=== PATIENT | female | born 1950 | race Caucasian/White ===

== ENCOUNTER 2017-08-22 19:09 | Inpatient (IN) | payer MEDICARE, OTHER ==
[2017-08-22] MEDS ORDERED: Haloperidol Lactate 5 mg/mL 1mL Vial IM PRN (19:28)
--- NOTE | 2017-08-22 19:36 | ED Physician Chart ---
ED Chief Complaint/HPI - Patient Information Date Seen:: 08/22/17 Time Seen:: 19:15 Chief Complaint:: agitation History of Present Illness:: 67 yr old female from formerly [facility] c[facility] pt has psych disorder thinks everybody is trying to poison her and refuses to eat or drink anything and is becoming emaciated and wasted bleeding gums and teeth decay Allergies:: pcn and depoakoate ED Review of Systems - Review of Systems General/Constitutional: No fever Neck: No swelling Cardio Vascular: No chest pain Pulmonary: No SOB GI: No vomiting Psychiatric: Prior psych history, Depression Hematopoietic: Bruising Neurological: Weakness Other: refuses to eat drink or follow commands very agitated and has failure to thrive ED Past Medical History - Past Medical History Past Medical History: DM, Other (ht failure kidney failure schizophrenia hypertension dementia difficulty walking,legaly blind,non compliance with medical tx) ED Physical Exam - Physical Examination General/Constitutional: Awake Other ENMT comments:: mouth bleeding teeth decaying and falling pt moans Other Neuro/Psych comments:: pt starts grabbing and refuses to follow commands or cooperate ED Assessment - Assessment General Assessment: schizoaffective disorder and failure to thrive ED Septic Shock - . Is Septic Shock (SBP<90, OR Lactate>4 mmol\L) present?: No ED Reassessment (Disposition) - Reassessment Reassessment Condition:: Unchanged - Patient Disposition Discharge/Transfer:: Acute Care w/in this hosp ([facility] for admission)
[2017-08-22] MEDS ORDERED: Haloperidol Lactate 5 mg/mL 1mL Vial ONE (21:00)
[2017-08-22 22:48] LABS: MEAN PLATELET VOLUME 9.2 fl
[2017-08-22 22:53] LABS: % BASOPHILS 2.8 % (0.0-2.0); % LYMPHOCYTES 6.1 % (20.0-50.0); % MONOCYTES 3.7 % (2.0-10.0); % NEUTROPHILS 87.4 % (40.0-80.0); BASOPHILE ABSOLUTE 0.4 Th/cumm (0-0.2); HEMATOCRIT 34.9 % (41.0-60); HEMOGLOBIN 11.7 gm/dL (12-16); LYMPHOCYTE ABSOLUTE 0.8 Th/cmm (1.5-3.0); MEAN CELL VOLUME 87.5 fl (81-100); MEAN CORPUSCULAR HEMOGLOBIN 29.5 pg (27.0-31.0); MEAN CORPUSCULAR HGB CONC 33.7 pg (28.0-36.0); MONOCYTE ABSOLUTE 0.5 Th/cmm (0.3-1.0); NEUTROPHILE ABSOLUTE 11.3 Th/cmm (1.8-8.0); PLATELET COUNT 187 Th/cmm (150-400); RED BLOOD COUNT 3.98 Mil/cmm (3.80-5.20); RED CELL DISTRIBUTION WIDTH 15.7 % (11.5-20.0)
[2017-08-22 22:56] LABS: INR 1.03 (0.5-1.4); PROTHROMBIN TIME (TEST) 10.7 SECONDS (9.5-11.5)
[2017-08-22 22:59] LABS: ALB/GLOB RATIO 1.4 (1.0-1.8); ANION GAP 22.4 (7.0-16.0); BILIRUBIN,TOTAL 1.2 mg/dL (0.3-1.0); CALCIUM SERUM 10.9 mg/dL (8.6-10.3); CARBON DIOXIDE 22.8 mEq/L (21.0-31.0); CREATININE - SERUM 1.2 mg/dL (0.6-1.2); GFR AFRICAN-AMERICAN 57.3 ml/min (>90); GFR NON AFRICAN-AMERICAN 47.3 ml/min; POTASSIUM SERUM 3.2 mEq/L (3.5-5.1); TOTAL PROTEIN,SERUM 6.9 gm/dL (6.0-8.3)
[2017-08-23] MEDS ORDERED: Magnesium Hydroxide (MOM) 30 mL UDC PO PRN (00:43)
[2017-08-23] MEDS ORDERED: Ipratropium Neb 0.5 mg/2.5 mL UD HHN PRN (00:43)
[2017-08-23] MEDS ORDERED: Albuterol Nebulizer 2.5mg/3mL HHN PRN (00:43)
[2017-08-23] MEDS ORDERED: Fleet Enema 135 mL RC PRN (00:43)
[2017-08-23] MEDS ORDERED: Hydrocodone/APAP 5mg/325mg Tab GT PRN (00:43)
[2017-08-23] MEDS ORDERED: Haloperidol Lactate 5 mg/mL 1mL Vial IM ONE (00:45)
[2017-08-23] MEDS ORDERED: Docusate Sodium 100 mg/10 mL UD GT PRN (01:45)
[2017-08-23] MEDS ORDERED: AMMONIUM LACTATE TP SCH (09:00)
[2017-08-23] MEDS: Ammonium Lactate Cream 140 gm Tube TP SCH ×2 (09:11→09:58)
--- NOTE | 2017-08-23 13:11 | Internal Medicine Prog Note ---
Internal Medicine Subjective - Subjective Service Date: 08/23/17 ([id number] hnp dictated) Internal Medicine Objective - Results Result Diagrams: 08/22/17 22:25 08/22/17 22:15 Recent Labs: Laboratory Last Values WBC 13.0 Th/cmm (4.8-10.8) H 08/22/17 22:25 RBC 3.98 Mil/cmm (3.80-5.20) 08/22/17 22:25 Hgb 11.7 gm/dL (12-16) L 08/22/17 22:25 Hct 34.9 % (41.0-60) L 08/22/17 22:25 MCV 87.5 fl (81-100) 08/22/17 22: MCH 29.5 pg (27.0-31.0) 08/22/17 22: MCHC Differential 33.7 pg (28.0-36.0) 08/22/17 22:25 RDW 15.7 % (11.5-20.0) 08/22/17: Plt Count 187 Th/cmm (150-400) 08/22/17 22:25 MPV 9.2 fl 08/22/17 22:25 Neutrophils % 87.4 % (40.0-80.0) H 08/22/17 22:25 Lymphocytes % 6.1 % (20.0-50.0) L 08/22/17 22:25 Monocytes % 3.7 % (2.0-10.0) 08/22/17 22: Eosinophils % 0.0 % (0.0-5.0) 08/22/17 22: Basophils % 2.8 % (0.0-2.0) H 08/22/17 22:25 PT 10.7 SECONDS (9.5-11.5) 08/22/17 22:15 INR 1.03 (0.5-1.4) 08/22/17 22:15 PTT (Actin FS) 22.4 SECONDS (26.0-38.0) L 08/22/17 22:15 Sodium 140 mEq/L (136-145) 08/22/17 22:15 Potassium 3.2 mEq/L (3.5-5.1) L 08/22/17 22:15 Chloride 98 mEq/L (98-107) 08/22/17 22:15 Carbon Dioxide 22.8 mEq/L (21.0-31.0) 08/22/17 22:15 Anion Gap 22.4 (7.0-16.0) H 08/22/17 22:15 BUN 32 mg/dL (7-25) H 08/22/17 22:15 Creatinine 1.2 mg/dL (0.6-1.2) 08/22/17 22:15 Est GFR ( Amer) 57.3 ml/min (>90) 08/22/17 22:15 Est GFR (Non-Af Amer) 47.3 ml/min 08/22/17 22:15 BUN/Creatinine Ratio 26.7 08/22/17 22:15 Glucose 74 mg/dL (70-105) 08/22/17 22:15 Calcium 10.9 mg/dL (8.6-10.3) H 08/22/17 22:15 Total Bilirubin 1.2 mg/dL (0.3-1.0) H 08/22/17 22:15 AST 18 U/L (13-39) 08/22/17 22:15 ALT 8 U/L (7-52) 08/22/17 22:15 Alkaline Phosphatase 62 U/L (34-104) 08/22/17 22:15 Total Protein 6.9 gm/dL (6.0-8.3) 08/22/17 22:15 Albumin 4.0 gm/dL (3.7-5.3) 08/22/17 22:15 Globulin 2.9 gm/dL 08/22/17 22:15 Albumin/Globulin Ratio 1.4 (1.0-1.8) 08/22/17 22:15 - Physical Exam Vitals and I&O: Vital Signs Temp 96.8 F 08/22/17 23:00 Pulse 72 08/23/17 05:04 Resp 16 08/23/17 07:26 BP 123/80 08/22/17 23:00 Pulse Ox 96 08/23/17 05:04 Intake & Output 08/22/17 08/23/17 08/23/17 18:59 06:59 18:59 Intake Total 120 Balance 120 Weight (lbs) 111 lb Intake: Oral 120 Other: # Voids 1 Weight Source Estimated Active Medications: Current Medications Acetaminophen (Tylenol) 650 mg GT Q4HR PRN PRN Reason: Pain or Fever >101 Stop: 10/22/17 00:42 Acetaminophen/Hydrocodone Bitart ([place] 5mg/325mg) 1 tab GT Q4HR PRN PRN Reason: Pain (Moderate) Stop: 10/22/17 00:42 Albuterol Sulfate (Albuterol 2.5mg/3ml Neb Ud) 2.5 mg HHN Q4HRT PRN PRN Reason: Shortness of Breath Stop: 10/22/17 00:42 Bisacodyl (Dulcolax 10 Mg Supp) 10 mg RC DAILY PRN PRN Reason: Constipation Stop: 10/22/17 00:42 Docusate Sodium (Colace) 100 mg GT DAILY PRN PRN Reason: CONSTIPATION Stop: 10/22/17 01:44 Ipratropium [place] (Atrovent Neb 0.5mg/2.5ml) 0.5 mg HHN Q4HRT PRN PRN Reason: Shortness of Breath or Wheeze Stop: 10/22/17 00:42 Lactic Acid (Lac-Hydrin Cream) 1 appl TP DAILY FOZIA Stop: 10/22/17 09:29 Last Admin: 08/23/17 09:58 Dose: 1 appl Lorazepam (Ativan) 0.5 mg PO Q6HR PRN; Protocol PRN Reason: Agitation Stop: 10/22/17 01:22 Magnesium Hydroxide (Milk Of Magnesia) 30 ml PO HS PRN PRN Reason: Constipation Stop: 10/22/17 00:42 Olanzapine (Zyprexa) 10 mg PO HS FOZIA; Protocol Stop: 10/22/17 20:59 Sodium Phosphate (Fleet Enema) 135 ml RC DAILY PRN PRN Reason: Constipation Stop: 10/22/17 00:42 Zolpidem Tartrate (Ambien) 5 mg PO HS PRN PRN Reason: Insomnia Stop: 10/22/17 01:24 - Procedures Procedures: Procedures Procedure Code Date RECREATIONAL THERAPY 93.81 11/09/10 Nutritional Asmnt/Malnutr-PDOC - Dietary Evaluation Malnutrition Findings (Please click <Entered> for more info): Nutritional Asmnt/Malnutrition Start: 08/23/17 10: 32 Text: Status: Complete Freq: Protocol: Document 08/23/17 10:32 MATEUSZ HudsonRec: 08/23/17 10:41 CECILELETHASIERRA VARGASN- FNS1) Nutritional Asmnt/Malnutrition Patient General Information Diagnosis psychosis nos Pertinent Medical Hx/Surgical Hx DM, schizophrenia, HTN, dementia, legally blind, non compliant Subjective Information Pt sitting up in bed with RN at bedside who was agruing with Pt to put lotion on patients bilateral lower extremities. Pt stating "I don 't want that, I don't want a doctor!" Visually noted severe ocular, clavicle, temperal wasting, and emaciated in appearance. RN at bedside stated that she though pt used to have g-tube however could not confirm if there was scaring of a stoma left on pt' s abdomen. Current Diet Order/ Nutrition Support pureed with nectar thick liquids Pertinent Medications bisacodyl, colace, MOM, fleet enema Pertinent Labs 08/22: Na 140, K 3.2, Cl 98, CO2 22.8, BUN 32, Cr 1.2, Ca 10.9, glucose 74 Nutritional Hx/Data Height 5 ft 6 in Height (Calculated Centimeters) 167.6 Current Weight (lbs) 97 lb 12.8 oz Weight (Calculated Kilograms) 44.4 Weight (Calculated Grams) 35213.3 Body Mass Index (BMI) 15.7 Weight Status Underweight GI Symptoms GI Symptoms None Cultural/Ethnic/[place] Belief unknown Usual diet at home pureed Skin Integrity/Comment: Shai score 12 Estimated Nutritional Goals BEE in Kcals: Using Current wt Calories/Kcals/Kg 30-35kcals/kg Kcals Calculated 1320-1540kcals/day Protein: Using Current wt Protein g/k.2+g/kg Protein Calculated 53+g/day Fluid: ml 1320-1540ml/day (1ml/kcal) Nutritional Problem 1. Problem Problem Altered nutrition related lab values related to Etiology renal dysfunction as evidenced by Signs/Symptoms: K 3.2, BUN 32. Intervention/Recommendation Comments Recommend continuing pureed diet with nectar thick liquids Recommend appeitite stimulant consider marinol to help with PO intake Expected Outcomes/Goals Expected Outcomes/Goals PO intake >/=50% of meals
--- NOTE | 2017-08-23 17:16 | History & Physical ---
ADMIT DATE: 08/23/2017 CHIEF COMPLAINT: Agitation. HISTORY OF PRESENT ILLNESS: This is a 67-year-old female who is a resident of [facility] who has a 1-day history of agitation and refusing to eat at the [facility]. The patient is now admitted to the Geropsych Unit. PAST MEDICAL HISTORY: Diabetes, CHF, kidney failure, schizophrenia, hypertension, dementia, legally blind, noncompliance. PAST SURGICAL HISTORY: Unknown. ALLERGIES: DEPAKOTE AND PENICILLIN. SOCIAL HISTORY: The patient is a [facility] resident requiring 24-hours of nursing care. FAMILY HISTORY: Noncontributory. REVIEW OF SYSTEMS: Unable to obtain at this time due to the patient's mental status. PHYSICAL EXAMINATION: GENERAL: Elderly female, appears thin, in no apparent distress. VITAL SIGNS: Temperature 96.8, heart rate 75, blood pressure 123/80, respiration 18. HEENT: Normocephalic, atraumatic. NECK: Supple. No mass. LUNGS: Clear bilaterally. HEART: Regular rate and rhythm. ABDOMEN: Soft, nontender. LABORATORY DATA: WBC 13.0, H and H 11.7/34.9, platelet of 187. Sodium 140, potassium 3.2, chloride 98, BUN 32, creatinine 1.2. ASSESSMENT: Agitation, diabetes, acute renal insufficiency, schizophrenia, hypertension, dementia, legally blind, noncompliance, leukocytosis, and hypokalemia. PLAN: We will collect a UA due to patient's elevated white count. We will recheck patient's electrolyte levels for tomorrow. Increase patient's fluids. We will continue to follow this patient. JOB# [id number]
--- NOTE | 2017-08-23 17:40 | Psychosocial Evaluation ---
DATE OF SERVICE: 08/23/2017 HISTORY OF PRESENT ILLNESS: The patient is admitted from ____, resident of [facility] ____ for refusal of medications and agitation. The patient is interviewed. Staff was spoken to. The patient is reported to be very disruptive. When I tried to interview the patient, the patient has been looking into the space and is not providing any information. The patient is very disheveled at this time and is also noted to be emaciated. Coping skills at this time are noted to be very poor. Insight and judgment are noted to be very much impaired, I am not able to get much of information. As per the review of the chart, the patient is diagnosed to have schizophrenia, chronic paranoid type and has been in conservatorship. The patient has been refusing to comply with the treatment. The patient is reported to have had dysphagia and PEG placement and the patient is currently on the Zyprexa. PAST PSYCHIATRIC HISTORY: Details are not known. MEDICAL HISTORY: Physical examination is requested and done by Dr. Sanchez. SUBSTANCE ABUSE HISTORY: None. PHYSICAL OR SEXUAL ABUSE HISTORY: None. LEGAL PROBLEMS: None at this time. STRENGTHS AND ASSETS: The patient at this time is not able to providing much of information, but refusing to care. DIAGNOSTIC IMPRESSION: The patient is staring into the space. The patient is alert and awake, but is not able to provide much of information. DIAGNOSES: AXIS I: Schizophrenia, chronic paranoid type by history. AXIS II: None. AXIS III: As per Dr. Sanchez. IMMEDIATE TREATMENT PLAN: The patient is going to be observed on the inpatient unit, provided with supportive psychotherapy. The patient is going to be closely monitored. Once stabilized, the patient is going to be continued on ____ Zyprexa and followed up. ESTIMATED LENGTH OF STAY: 5-7 days. DISCHARGE CRITERIA: The patient no longer a threat to self or others and be able to cope up with the stress. JOB# [id number]
[2017-08-24 07:55] LABS: % BASOPHILS 0.3 % (0.0-2.0); % EOSINOPHILS 0.1 % (0.0-5.0); % LYMPHOCYTES 9.1 % (20.0-50.0); % MONOCYTES 3.6 % (2.0-10.0); % NEUTROPHILS 86.9 % (40.0-80.0); HEMATOCRIT 33.1 % (41.0-60); HEMOGLOBIN 11.6 gm/dL (12-16); LYMPHOCYTE ABSOLUTE 0.9 Th/cmm (1.5-3.0); MEAN CELL VOLUME 87.9 fl (81-100); MEAN CORPUSCULAR HEMOGLOBIN 30.8 pg (27.0-31.0); MEAN CORPUSCULAR HGB CONC 35.1 pg (28.0-36.0); MEAN PLATELET VOLUME 8.9 fl; MONOCYTE ABSOLUTE 0.4 Th/cmm (0.3-1.0); PLATELET COUNT 219 Th/cmm (150-400); RED BLOOD COUNT 3.76 Mil/cmm (3.80-5.20); RED CELL DISTRIBUTION WIDTH 15.6 % (11.5-20.0); WHITE BLOOD COUNT 10.3 Th/cmm (4.8-10.8)
[2017-08-24 07:58] LABS: ANION GAP 19.2 (7.0-16.0); CALCIUM SERUM 10.4 mg/dL (8.6-10.3); CARBON DIOXIDE 27.8 mEq/L (21.0-31.0); CREATININE - SERUM 1.2 mg/dL (0.6-1.2); GFR AFRICAN-AMERICAN 57.3 ml/min (>90); GFR NON AFRICAN-AMERICAN 47.3 ml/min
[2017-08-24] MEDS: Ammonium Lactate Cream 140 gm Tube TP SCH (08:14)
--- NOTE | 2017-08-24 13:54 | Internal Medicine Prog Note ---
Internal Medicine Subjective - Subjective Service Date: 08/24/17 Patient seen and examined:: with staff Patient is:: awake Per staff patient has:: poor appetite, poor oral intake, refusing care Internal Medicine Objective - Results Result Diagrams: 08/24/17 07:25 08/24/17 07:25 Recent Labs: Laboratory Last Values WBC 10.3 Th/cmm (4.8-10.8) 08/24/17 07:25 RBC 3.76 Mil/cmm (3.80-5.20) L 08/24/17 07:25 Hgb 11.6 gm/dL (12-16) L 08/24/17 07:25 Hct 33.1 % (41.0-60) L 08/24/17 07:25 MCV 87.9 fl (81-100) 08/24/17 07:25 MCH 30.8 pg (27.0-31.0) 08/24/17 07:25 MCHC Differential 35.1 pg (28.0-36.0) 08/24/17 07:25 RDW 15.6 % (11.5-20.0) 08/24/17 07:25 Plt Count 219 Th/cmm (150-400) 08/24/17 07:25 MPV 8.9 fl 08/24/17 07:25 Neutrophils % 86.9 % (40.0-80.0) H 08/24/17 07:25 Lymphocytes % 9.1 % (20.0-50.0) L 08/24/17 07:25 Monocytes % 3.6 % (2.0-10.0) 08/24/17 07:25 Eosinophils % 0.1 % (0.0-5.0) 08/24/17 07:25 Basophils % 0.3 % (0.0-2.0) 08/24/17 07:25 PT 10.7 SECONDS (9.5-11.5) 08/22/17 22:15 INR 1.03 (0.5-1.4) 08/22/17 22:15 PTT (Actin FS) 22.4 SECONDS (26.0-38.0) L 08/22/17 22:15 Sodium 148 mEq/L (136-145) H 08/24/17 07:25 Potassium 4.0 mEq/L (3.5-5.1) 08/24/17 07:25 Chloride 105 mEq/L (98-107) 08/24/17 07:25 Carbon Dioxide 27.8 mEq/L (21.0-31.0) 08/24/17 07:25 Anion Gap 19.2 (7.0-16.0) H 08/24/17 07:25 BUN 28 mg/dL (7-25) H 08/24/17 07:25 Creatinine 1.2 mg/dL (0.6-1.2) 08/24/17 07:25 Est GFR ( Amer) 57.3 ml/min (>90) 08/24/17 07:25 Est GFR (Non-Af Amer) 47.3 ml/min 08/24/17 07:25 BUN/Creatinine Ratio 23.3 08/24/17 07:25 Glucose 74 mg/dL (70-105) 08/24/17 07:25 POC Glucose 70 MG/DL (70 - 105) 08/24/17 06:46 Calcium 10.4 mg/dL (8.6-10.3) H 08/24/17 07:25 Total Bilirubin 1.2 mg/dL (0.3-1.0) H 08/22/17 22:15 AST 18 U/L (13-39) 08/22/17 22:15 ALT 8 U/L (7-52) 08/22/17 22:15 Alkaline Phosphatase 62 U/L (34-104) 08/22/17 22:15 Total Protein 6.9 gm/dL (6.0-8.3) 08/22/17 22:15 Albumin 4.0 gm/dL (3.7-5.3) 08/22/17 22:15 Globulin 2.9 gm/dL 08/22/17 22:15 Albumin/Globulin Ratio 1.4 (1.0-1.8) 08/22/17 22:15 - Physical Exam Vitals and I&O: Vital Signs Temp 96.8 F 08/22/17 23:00 Pulse 72 08/23/17 05:04 Resp 16 08/23/17 07:26 BP 123/80 08/22/17 23:00 Pulse Ox 96 08/23/17 05:04 Intake & Output 08/23/17 08/24/17 08/24/17 18:59 06:59 18:59 Intake Total 120 Balance 120 Intake: Oral 120 Other: # Voids 3 Active Medications: Current Medications Acetaminophen (Tylenol) 650 mg GT Q4HR PRN PRN Reason: Pain or Fever >101 Stop: 10/22/17 00:42 Acetaminophen/Hydrocodone Bitart ([place] 5mg/325mg) 1 tab GT Q4HR PRN PRN Reason: Pain (Moderate) Stop: 10/22/17 00:42 Albuterol Sulfate (Albuterol 2.5mg/3ml Neb Ud) 2.5 mg HHN Q4HRT PRN PRN Reason: Shortness of Breath Stop: 10/22/17 00:42 Bisacodyl (Dulcolax 10 Mg Supp) 10 mg RC DAILY PRN PRN Reason: Constipation Stop: 10/22/17 00:42 Docusate Sodium (Colace) 100 mg GT DAILY PRN PRN Reason: CONSTIPATION Stop: 10/22/17 01:44 Ipratropium [place] (Atrovent Neb 0.5mg/2.5ml) 0.5 mg HHN Q4HRT PRN PRN Reason: Shortness of Breath or Wheeze Stop: 10/22/17 00:42 Lactic Acid (Lac-Hydrin Cream) 1 appl TP DAILY FOZIA Stop: 10/22/17 09:29 Last Admin: 08/24/17 08:14 Dose: 1 appl Lorazepam (Ativan) 0.5 mg PO Q6HR PRN; Protocol PRN Reason: Agitation Stop: 10/22/17 01:22 Magnesium Hydroxide (Milk Of Magnesia) 30 ml PO HS PRN PRN Reason: Constipation Stop: 10/22/17 00:42 Megestrol Acetate (Megace) 400 mg PO BID FOZIA; Protocol Stop: 10/23/17 08:59 Last Admin: 08/24/17 09:03 Dose: Not Given Olanzapine (Zyprexa) 5 mg PO HS FOZIA; Protocol Stop: 10/23/17 20:59 Sodium Phosphate (Fleet Enema) 135 ml RC DAILY PRN PRN Reason: Constipation Stop: 10/22/17 00:42 Zolpidem Tartrate (Ambien) 5 mg PO HS PRN PRN Reason: Insomnia Stop: 10/22/17 01:24 General: weak, alert, thin HEENT: NC/AT, PERRLA Neck: Supple Lungs: CTAB Cardiovascular: RRR, Normal S1, Normal S2, without murmur Abdomen: soft, non-tender, non-distended Extremities: excoriation Neurological: alert - Procedures Procedures: Procedures Procedure Code Date RECREATIONAL THERAPY 93.81 11/09/10 Internal Medicine Assmt/Plan - Assessment Assessment: agitation poor oral intake dm acute renal insufficiency htn dementia legally blind non-compliant hypokalemia - Plan Plan: may need adjustments with psych meds? added megace and patient refuses to take it. if patient still refuses to eat/drink may need to be transferred to [facility] for IVF. continue monitoring i+o continue current plan of care Nutritional Asmnt/Malnutr-PDOC - Dietary Evaluation Malnutrition Findings (Please click <Entered> for more info): Nutritional Asmnt/Malnutrition Start: 08/23/17 10: 32 Text: Status: Complete Freq: Protocol: Document 08/23/17 10:32 MATEUSZ (Rec: 08/23/17 10:41 MATEUSZ GRAHAM- FNS1) Nutritional Asmnt/Malnutrition Patient General Information Diagnosis psychosis nos Pertinent Medical Hx/Surgical Hx DM, schizophrenia, HTN, dementia, legally blind, non compliant Subjective Information Pt sitting up in bed with RN at bedside who was agruing with Pt to put lotion on patients bilateral lower extremities. Pt stating "I don 't want that, I don't want a doctor!" Visually noted severe ocular, clavicle, temperal wasting, and emaciated in appearance. RN at bedside stated that she though pt used to have g-tube however could not confirm if there was scaring of a stoma left on pt' s abdomen. Current Diet Order/ Nutrition Support pureed with nectar thick liquids Pertinent Medications bisacodyl, colace, MOM, fleet enema Pertinent Labs 08/22: Na 140, K 3.2, Cl 98, CO2 22.8, BUN 32, Cr 1.2, Ca 10.9, glucose 74 Nutritional Hx/Data Height 5 ft 6 in Height (Calculated Centimeters) 167.6 Current Weight (lbs) 97 lb 12.8 oz Weight (Calculated Kilograms) 44.4 Weight (Calculated Grams) 12585.3 Body Mass Index (BMI) 15.7 Weight Status Underweight GI Symptoms GI Symptoms None Cultural/Ethnic/Buddhism Belief unknown Usual diet at home pureed Skin Integrity/Comment: Shai score 12 Estimated Nutritional Goals BEE in Kcals: Using Current wt Calories/Kcals/Kg 30-35kcals/kg Kcals Calculated 1320-1540kcals/day Protein: Using Current wt Protein g/k.2+g/kg Protein Calculated 53+g/day Fluid: ml 1320-1540ml/day (1ml/kcal) Nutritional Problem 1. Problem Problem Altered nutrition related lab values related to Etiology renal dysfunction as evidenced by Signs/Symptoms: K 3.2, BUN 32. Intervention/Recommendation Comments Recommend continuing pureed diet with nectar thick liquids Recommend appeitite stimulant consider marinol to help with PO intake Expected Outcomes/Goals Expected Outcomes/Goals PO intake >/=50% of meals
== END 2017-08-24 16:06 | disposition short-term general hospital (02) | DRG 885 ==
LOC: ER 19:09 → GERO 23:05
PROVIDERS: ADMIT Psychiatry & Neurology Psychiatry; ATTEND Psychiatry & Neurology Psychiatry
DX: F20.0 Paranoid schizophrenia (principal); I11.0 Hypertensive heart disease with heart failure; E11.9 Type 2 diabetes mellitus without complications; I50.9 Heart failure, unspecified; F03.90 Unspecified dementia, unspecified severity, without behavioral disturbance, psychotic disturbance, mood disturbance, and anxiety; H54.8 Legal blindness, as defined in USA; R62.7 Adult failure to thrive; N28.9 Disorder of kidney and ureter, unspecified; D72.829 Elevated white blood cell count, unspecified; E87.6 Hypokalemia; Z91.14 Patient's other noncompliance with medication regimen
CPT/HCPCS: 36415-UA; 80048-TC; 80053-TC; 82948-90; 85007-TC; 85025-TC; 85027-TC; 85610-TC; 94760; J1200; J1630; Z7610

== ENCOUNTER 2017-08-24 16:20 | Inpatient (IN) | payer MEDICARE, OTHER ==
[2017-08-24] MEDS: D5-0.45NS 1,000 ML IV SCH (17:37)
--- NOTE | 2017-08-24 19:28 | Progress Notes ---
DATE: 08/24/2017 SUBJECTIVE: Staff was spoken to. The patient is interviewed. Mood is noted to be irritable. Affect is constricted. The patient's coping skills are noted to be still poor. The patient is looking blankly into the space and the patient has no insight into her illness. The patient continues to be paranoid. Since the patient has been very isolative, withdrawn and has been very, very drowsy and poorly motivated, it is decided to decrease the dose on the medication to 5 mg of the olanzapine at night time from 10 mg and the patient is going to be closely monitored with the supportive therapy. ASSESSMENT: The patient is still psychotic. PLAN: To continue the patient with the supportive therapy and adjust the dose on the medications. [facility]# [id number]
[2017-08-24] MEDS ORDERED: Hydrocodone/APAP 5mg/325mg Tab GT PRN ×2 (19:41)
[2017-08-24] MEDS ORDERED: Fleet Enema 135 mL RC PRN (19:41)
[2017-08-24] MEDS ORDERED: Magnesium Hydroxide (MOM) 30 mL UDC PO PRN (19:41)
[2017-08-24] MEDS ORDERED: Albuterol Nebulizer 2.5mg/3mL HHN PRN (19:41)
[2017-08-24] MEDS ORDERED: Ipratropium Neb 0.5 mg/2.5 mL UD HHN PRN (19:41)
[2017-08-24] MEDS: INSULIN ASPART SLIDING SCALE 100 UNITS/ML UNIT SUBQ SCH (20:09)
[2017-08-25] MEDS: D5-0.45NS 1,000 ML IV SCH ×2 (06:08→14:22)
[2017-08-25] MEDS: INSULIN ASPART SLIDING SCALE 100 UNITS/ML UNIT SUBQ SCH ×4 (08:17→20:49)
[2017-08-25] MEDS ORDERED: VTE Chemical Prophylaxis Screen/Admission MC PRN (09:27)
[2017-08-25] MEDS: Ammonium Lactate Cream 140 gm Tube TP SCH (10:01)
[2017-08-25 10:54] LABS: % EOSINOPHILS 0.2 % (0.0-5.0); % LYMPHOCYTES 9.4 % (20.0-50.0); % MONOCYTES 4.4 % (2.0-10.0); HEMATOCRIT 34.9 % (41.0-60); HEMOGLOBIN 11.8 gm/dL (12-16); LYMPHOCYTE ABSOLUTE 0.8 Th/cmm (1.5-3.0); MEAN CELL VOLUME 88.9 fl (81-100); MEAN CORPUSCULAR HEMOGLOBIN 30.1 pg (27.0-31.0); MEAN CORPUSCULAR HGB CONC 33.9 pg (28.0-36.0); MEAN PLATELET VOLUME 8.5 fl; MONOCYTE ABSOLUTE 0.4 Th/cmm (0.3-1.0); NEUTROPHILE ABSOLUTE 7.3 Th/cmm (1.8-8.0); PLATELET COUNT 192 Th/cmm (150-400); RED BLOOD COUNT 3.92 Mil/cmm (3.80-5.20); WHITE BLOOD COUNT 8.5 Th/cmm (4.8-10.8)
[2017-08-25] MEDS ORDERED: Ammonium Lactate Cream 140 gm Tube TP SCH (11:00)
[2017-08-25 11:17] LABS: ALB/GLOB RATIO 1.3 (1.0-1.8); ALKALINE PHOSPHATASE 50 U/L (34-104); ANION GAP 14.7 (7.0-16.0); BILIRUBIN,TOTAL 0.8 mg/dL (0.3-1.0); BUN - UREA NITROGEN 24 mg/dL (7-25); CALCIUM SERUM 9.5 mg/dL (8.6-10.3); CARBON DIOXIDE 28.3 mEq/L (21.0-31.0); CHLORIDE 105 mEq/L (98-107); CREATININE - SERUM 0.9 mg/dL (0.6-1.2); GFR AFRICAN-AMERICAN > 60.0 ml/min (>90); GFR NON AFRICAN-AMERICAN > 60.0 ml/min; GLUCOSE 106 mg/dL (70-105); MAGNESIUM 2.2 mg/dL (1.9-2.7); SGOT 11 U/L (13-39); SGPT/ALT 5 U/L (7-52); SODIUM SERUM 145 mEq/L (136-145); TOTAL PROTEIN,SERUM 5.3 gm/dL (6.0-8.3)
[2017-08-25] MEDS: KCL 20mEq/100mL Premix 20 MEQ/100 ML PIGGYBACK IV SCH ×2 (12:10→15:20)
--- NOTE | 2017-08-25 13:59 | Diagnostic Imaging Report ---
Head CT without intravenous contrast Indication: Altered level of consciousness Comparison: None Technique: Axial images were obtained from the vertex to the skull base without IV contrast. Coronal reconstructions were made. Total DLP: 633, CTDI33 FINDINGS: Images of the brain obtained without contrast demonstrate no evidence of an acute hemorrhage. Atrophy is noted. Exam is limited due to positioning. The bella-white matter differentiation is preserved. The ventricles and basal cisterns are patent. No mass effect or midline shift. No evidence of skull fracture or focal soft tissue swelling. There is a small mucous retention cyst versus polyp of the left maxillary sinus. IMPRESSION: No evidence of an acute intracranial hemorrhage. Atrophy Mild left maxillary sinus disease.
--- NOTE | 2017-08-25 14:12 | History & Physical ---
ADMIT DATE: 08/24/2017 CHIEF COMPLAINT: Failure to thrive, poor p.o. intake, dehydrated. HISTORY OF PRESENT ILLNESS: This is a 67-year-old female with a history of diabetes, CHF, renal insufficiency, hypertension, schizoaffective disorder, was admitted from Geropsych Unit per custodial, initially secondary to not eating, not taking medications. The patient was deemed clinically dehydrated and transferred to medical floor for further management per psychiatrist. PAST MEDICAL HISTORY: As mentioned in history of present illness. PAST SURGICAL HISTORY: Unable to obtain at this time. ALLERGIES: PENICILLIN AND DEPAKOTE. MEDICATIONS: Albuterol, Atrovent, heparin, lorazepam, Megace, Zyprexa, Ambien. FAMILY HISTORY: Noncontributory. SOCIAL HISTORY: The patient lives in custodial. The patient requiring 24-hour total care. REVIEW OF SYSTEMS: This is limited secondary to the patient's current mental state. We will try to obtain more detailed review of system at a later date by talking to family members. There is a conservator, Rolanda Sharma, #[phone]. We will also try to get information from the nursing staff at [facility], #[phone] well as from Dr. Engel, who followed the patient before. PHYSICAL EXAMINATION: VITAL SIGNS: Blood pressure 103/61, respirations 18, pulse 75, temperature 97.6. GENERAL: Elderly female, thin, chronically ill. NECK: Supple. No mass. HEENT: Bilateral temporal wasting. LUNGS: Equal breath sounds, few rhonchi. HEART: Regular rate and rhythm with systolic ejection murmur. ABDOMEN: Soft, globular. EXTREMITIES: Positive excoriation. NEUROLOGIC: Limited. LABORATORY DATA: Previous white count 13, hemoglobin 11.8, platelets 182. Sodium 140, potassium 3.0, BUN 24, creatinine 0.9, blood sugar 106, albumin 3.0. ASSESSMENT AND PLAN: Failure to thrive, poor p.o. intake, severe protein-caloric malnutrition, diabetes, congestive heart failure, acute on chronic renal insufficiency, schizoaffective disorder, hypertension, hypokalemia, dementia, legally blind, leukocytosis, and bedbound. We will continue the patient on oxygen and bronchodilator treatments. We will continue with ____. We will perform calorie count. If intake is poor, he may consider alternative means of feeding. We will try to get all the conservative as far as the advance directive, continue with current care with followup consult and recommendations. Psych is following. JOB# [id number]
--- NOTE | 2017-08-26 02:08 | Progress Notes ---
DATE: 08/25/2017 PSYCHIATRIC PROGRESS NOTE Staff was spoken to. The patient is interviewed. Mood is noted to be irritable. Affect is constricted. The patient is selectively mute and has been staring into the space and is not able to provide much of information. Coping skills at this time are noted to be very poor. Insight and judgment are also noted to be very much impaired. Continues to have paranoia. The patient is being closely monitored for intake and output. The patient is still psychotic. PLAN: To continue the patient with low dose of Zyprexa and followup. JOB# [id number]
[2017-08-26] MEDS: D5-0.45NS 1,000 ML IV SCH ×2 (02:22→17:08)
[2017-08-26] MEDS: INSULIN ASPART SLIDING SCALE 100 UNITS/ML UNIT SUBQ SCH ×4 (09:39→21:33)
[2017-08-26] MEDS: Ammonium Lactate Cream 140 gm Tube TP SCH (10:09)
--- NOTE | 2017-08-26 13:02 | Internal Medicine Prog Note ---
Internal Medicine Subjective - Subjective Patient seen and examined:: with staff, chart reviewed Patient is:: asleep, non-verbal, non-interactive, eyes closed, in bed, agitated , confused Patient Complaints of:: congestion Per staff patient has:: no adverse event, poor appetite, unstable gait, agitated , combative, refusing care, refusing labs Internal Medicine Objective - Results Result Diagrams: 08/25/17 10:24 08/25/17 10:24 Recent Labs: Laboratory Last Values WBC 8.5 Th/cmm (4.8-10.8) 08/25/17 10:24 RBC 3.92 Mil/cmm (3.80-5.20) 08/25/17 10:24 Hgb 11.8 gm/dL (12-16) L 08/25/17 10:24 Hct 34.9 % (41.0-60) L 08/25/17 10:24 MCV 88.9 fl (81-100) 08/25/17 10:24 MCH 30.1 pg (27.0-31.0) 08/25/17 10:24 MCHC Differential 33.9 pg (28.0-36.0) 08/25/17 10:24 RDW 16.0 % (11.5-20.0) 08/25/17 10:24 Plt Count 192 Th/cmm (150-400) 08/25/17 10:24 MPV 8.5 fl 08/25/17 10:24 Neutrophils % 86.0 % (40.0-80.0) H 08/25/17 10:24 Lymphocytes % 9.4 % (20.0-50.0) L 08/25/17 10:24 Monocytes % 4.4 % (2.0-10.0) 08/25/17 10:24 Eosinophils % 0.2 % (0.0-5.0) 08/25/17 10:24 Basophils % 0.0 % (0.0-2.0) 08/25/17 10:24 Sodium 145 mEq/L (136-145) 08/25/17 10:24 Potassium 3.0 mEq/L (3.5-5.1) L D 08/25/17 10:24 Chloride 105 mEq/L (98-107) 08/25/17 10:24 Carbon Dioxide 28.3 mEq/L (21.0-31.0) 08/25/17 10:24 Anion Gap 14.7 (7.0-16.0) 08/25/17 10:24 BUN 24 mg/dL (7-25) 08/25/17 10:24 Creatinine 0.9 mg/dL (0.6-1.2) 08/25/17 10:24 Est GFR ( Amer) > 60.0 ml/min (>90) 08/25/17 10:24 Est GFR (Non-Af Amer) > 60.0 ml/min 08/25/17 10:24 BUN/Creatinine Ratio 26.7 08/25/17 10:24 Glucose 106 mg/dL (70-105) H 08/25/17 10:24 POC Glucose 83 MG/DL (70 - 105) 08/25/17 04:36 Calcium 9.5 mg/dL (8.6-10.3) 08/25/17 10:24 Magnesium 2.2 mg/dL (1.9-2.7) 08/25/17 10:24 Total Bilirubin 0.8 mg/dL (0.3-1.0) 08/25/17 10:24 AST 11 U/L (13-39) L 08/25/17 10:24 ALT 5 U/L (7-52) L 08/25/17 10:24 Alkaline Phosphatase 50 U/L (34-104) 08/25/17 10:24 Total Protein 5.3 gm/dL (6.0-8.3) L 08/25/17 10:24 Albumin 3.0 gm/dL (3.7-5.3) L 08/25/17 10:24 Globulin 2.3 gm/dL 08/25/17 10:24 Albumin/Globulin Ratio 1.3 (1.0-1.8) 08/25/17 10:24 - Physical Exam Vitals and I&O: Vital Signs Temp 97.9 F 08/26/17 11:44 Pulse 75 08/26/17 11:44 Resp 18 08/26/17 11:44 BP 112/66 08/26/17 11:44 Pulse Ox 98 08/26/17 11:44 Intake & Output 08/25/17 08/26/17 08/26/17 18:59 06:59 18:59 Intake Total 100 960 Output Total 950 Balance -850 960 Weight (lbs) 43.998 kg 43.998 kg Intake: Intake, IV Amount 100 960 D5-0.45NS 1,000 ml @ 80 960 mls/hr IV .[id number] [facility] Rx #:[id number] KCL 20mEq/100mL Premix 20 100 meq In 100 ml @ 50 mls/ hr IV Q2H [facility] Rx#: [id number] Oral 0 Output: Urine 950 Stool 0 Other: Weight Source Bedscale Estimated Active Medications: Current Medications Acetaminophen (Tylenol) 650 mg GT Q4HR PRN PRN Reason: Pain or Fever >101 Stop: 10/23/17 19:40 Acetaminophen/Hydrocodone Bitart ([place] 5mg/325mg) 1 tab GT Q4HR PRN PRN Reason: Pain (Moderate) Stop: 10/23/17 19:40 Albuterol Sulfate (Albuterol 2.5mg/3ml Neb Ud) 2.5 mg HHN Q4HRT PRN PRN Reason: Shortness of Breath Stop: 10/23/17 19:40 Bisacodyl (Dulcolax 10 Mg Supp) 10 mg RC DAILY PRN PRN Reason: Constipation Stop: 10/23/17 19:40 Docusate Sodium (Colace) 100 mg GT DAILY PRN PRN Reason: CONSTIPATION Stop: 10/24/17 08:59 Heparin Sodium (Porcine) (Heparin) 5,000 units SUBQ Q12HR [facility] Stop: 10/24/17 20:59 Last Admin: 08/26/17 10:08 Dose: 5,000 units Dextrose/Sodium Chloride (D5-0.45ns) 1,000 mls @ 80 mls/hr IV .[id number] [facility] Stop: 10/24/17 12:59 Last Admin: 08/26/17 02:22 Dose: 80 mls/hr Insulin Aspart (Novolog Insulin Sliding Scale) 0 units SUBQ ACHS [facility]; Protocol Stop: 10/23/17 20:59 Last Admin: 08/26/17 11:51 Dose: Not Given Ipratropium [place] (Atrovent Neb 0.5mg/2.5ml) 0.5 mg HHN Q4HRT PRN PRN Reason: Shortness of Breath or Wheeze Stop: 10/23/17 19:40 Lactic Acid (Lac-Hydrin Cream) 1 appl TP DAILY [facility] Stop: 10/24/17 08:59 Last Admin: 08/26/17 10:09 Dose: 1 appl Lorazepam (Ativan) 0.5 mg PO Q6HR PRN; Protocol PRN Reason: Agitation Stop: 10/23/17 19:40 Magnesium Hydroxide (Milk Of Magnesia) 30 ml PO HS PRN PRN Reason: Constipation Stop: 10/23/17 19:40 Megestrol Acetate (Megace) 400 mg PO BID [facility] Stop: 10/24/17 08:59 Last Admin: 08/26/17 10:08 Dose: 400 mg Miscellaneous (Vte Chemical Prophylaxis Screen/ Admission) 1 ea [facility] PRN PRN PRN Reason: PROTOCOL Stop: 10/24/17 09:26 Olanzapine (Zyprexa) 5 mg PO HS [facility]; Protocol Stop: 10/23/17 20:59 Last Admin: 08/25/17 20:50 Dose: 5 mg Sodium Phosphate (Fleet Enema) 135 ml RC DAILY PRN PRN Reason: Constipation Stop: 10/23/17 19:40 Zolpidem Tartrate (Ambien) 5 mg PO HS PRN PRN Reason: Insomnia Stop: 10/23/17 19:40 General: demented, disheveled, thin, cachectic HEENT: NC/AT, PERRLA Neck: Supple, No JVD, No LAD Lungs: congested, chest deformity present Cardiovascular: RRR, Normal S1, Normal S2, with murmur Abdomen: soft, non-tender, thin, positive bowel sound Extremities: excoriation, contracture, deformity Neurological: disorganized, muscle weakness, unable to follow command - Procedures Procedures: Procedures Procedure Code Date RECREATIONAL THERAPY 93.81 11/09/10 Internal Medicine Assmt/Plan - Assessment Assessment: ASSESSMENT AND PLAN: Failure to thrive, poor p.o. intake, severe protein-caloric malnutrition, diabetes, congestive heart failure, acute on chronic renal insufficiency, schizoaffective disorder, hypertension, hypokalemia, dementia, legally blind, leukocytosis, and bedbound. - Plan Plan: plan We will continue the patient on oxygen and bronchodilator treatments. We will continue with __ivf__. We will perform calorie count. If intake is poor, he may consider alternative means of feeding. We will try to get all the conservative as far as the advance directive, continue with current care with followup consult and recommendations. Psych is following. Nutritional Asmnt/Malnutr-PDOC - Dietary Evaluation Malnutrition Findings (Please click <Entered> for more info): Nutritional Asmnt/Malnutrition Start: 08/25/17 17: 28 Text: Status: Complete Freq: Protocol: Document 08/25/17 17:28 [email or web address] (Rec: 08/25/17 17:32 [email or web address]) Nutritional Asmnt/Malnutrition Patient General Information Nutritional Screening High Risk Consult Diagnosis dehydration, FTT Pertinent Medical Hx/Surgical Hx DM, CHF, kidney failure, schizophrenia, HTN, dementia, legally blind, noncompliance Subjective Information Consult received for poor oral intake. Pt seen resting in bed at time of visit. Per nurse note, pt refused breakfast and lunch today. Pt on calorie count noted. Current Diet Order/ Nutrition Support pureed, nectar thin liquid Pertinent Medications D5-0.45ns, colace, novolog, megace Pertinent Labs 7/ K 3.0, glucose 106 Nutritional Hx/Data Height 1.68 m Height (Calculated Centimeters) 167.6 Current Weight (lbs) 50.349 kg Weight (Calculated Kilograms) 50.3 Weight (Calculated Grams) 81671.8 [place] Body Weight 130 Body Mass Index (BMI) 17.9 Weight Status Underweight GI Symptoms GI Symptoms None Last BM none Skin Integrity/Comment: redness Estimated Nutritional Goals BEE in Kcals: Using Current wt Calories/Kcals/Kg 30-35 Kcals Calculated 3651-0633 Protein: Using Current wt Protein g/k.2 Protein Calculated 60 Fluid: ml 1500-1750ml (1ml/kcal) Nutritional Problem 1. Problem Problem inadequate food intake Etiology pt refusing to eat Signs/Symptoms: PO intake <25% since admission Malnutrition Alert Muscle Mass (Non-Severe) Mild Depletion Is there a minimum of two criteria No selected? Query Text:Check all the applicable criteria. A minimum of two criteria are recommended for diagnosis of either severe or non-severe malnutrition. Malnutrition Related to Morbid Obesity Malnutrition related to morbid obesity No Intervention/Recommendation Comments 1. Continue with current diet as ordered. Assist pt with meals and encourage oral intake. 2. Monitor PO intake, wt, labs and skin integrity 3. F/U as high risk in 2-3 days, 7/4-08/28 Expected Outcomes/Goals Expected Outcomes/Goals 1. PO intake to meet at least 75% of nutritional needs. 2. Wt stability, skin to remain intact, labs to approach WNL.
[2017-08-26 13:19] LABS: URINE MICROSCOPIC INDICATED? YES; URINE SOURCE CATH
[2017-08-26 13:36] LABS: URINE CLARITY SLIGHTLY HAZY (CLEAR); URINE COLOR YELLOW
[2017-08-26 13:37] LABS: URINE BILIRUBIN NEGATIVE (NEGATIVE); URINE BLOOD TRACE (NEGATIVE); URINE GLUCOSE (UA) NEGATIVE (NEGATIVE); URINE KETONE TRACE mg/dL (NEGATIVE); URINE LEUKOCYTE ESTERASE SMALL (NEGATIVE); URINE NITRATE NEGATIVE (NEGATIVE); URINE PH 6.5 (4.6 - 8.0); URINE PROTEIN TRACE mg/dL (NEGATIVE); URINE UROBILINOGEN 0.2 E.U./dL (0.2 - 1.0)
[2017-08-26 13:38] LABS: URINE BACTERIA NONE SEEN /hpf (NONE SEEN); URINE EPITHELIAL CELLS FEW /lpf (FEW)
[2017-08-27] MEDS: D5-0.45NS 1,000 ML IV SCH ×2 (05:59→14:26)
[2017-08-27 06:30] LABS: % BASOPHILS 0.3 % (0.0-2.0); % EOSINOPHILS 0.4 % (0.0-5.0); % LYMPHOCYTES 13.3 % (20.0-50.0); HEMATOCRIT 31.3 % (41.0-60); HEMOGLOBIN 10.6 gm/dL (12-16); LYMPHOCYTE ABSOLUTE 0.8 Th/cmm (1.5-3.0); MEAN CELL VOLUME 89.2 fl (81-100); MEAN CORPUSCULAR HEMOGLOBIN 30.3 pg (27.0-31.0); MONOCYTE ABSOLUTE 0.3 Th/cmm (0.3-1.0); NEUTROPHILE ABSOLUTE 4.7 Th/cmm (1.8-8.0); PLATELET COUNT 218 Th/cmm (150-400); RED BLOOD COUNT 3.51 Mil/cmm (3.80-5.20); RED CELL DISTRIBUTION WIDTH 15.9 % (11.5-20.0); WHITE BLOOD COUNT 5.8 Th/cmm (4.8-10.8)
[2017-08-27 06:42] LABS: ANION GAP 10.9 (7.0-16.0); BUN - UREA NITROGEN 16 mg/dL (7-25); CALCIUM SERUM 8.9 mg/dL (8.6-10.3); CARBON DIOXIDE 27.3 mEq/L (21.0-31.0); CHLORIDE 108 mEq/L (98-107); CREATININE - SERUM 0.8 mg/dL (0.6-1.2); GFR AFRICAN-AMERICAN > 60.0 ml/min (>90); GFR NON AFRICAN-AMERICAN > 60.0 ml/min; GLUCOSE 107 mg/dL (70-105); MAGNESIUM 1.8 mg/dL (1.9-2.7); POTASSIUM SERUM 3.2 mEq/L (3.5-5.1); SODIUM SERUM 143 mEq/L (136-145)
[2017-08-27] MEDS: INSULIN ASPART SLIDING SCALE 100 UNITS/ML UNIT SUBQ SCH ×4 (06:54→21:16)
[2017-08-27] MEDS: Ammonium Lactate Cream 140 gm Tube TP SCH (08:19)
[2017-08-27] MEDS ORDERED: Potassium Chloride 40 MEQ, Lidocaine 1% 20mL Vial 25 MG in Sodium Chloride 0.9% 250 ML IV ONE (14:04)
[2017-08-27] MEDS ORDERED: Mag Sulfate 2gm/50mL Premix 2 GM/50 ML BAG IV ONE (14:04)
--- NOTE | 2017-08-27 14:05 | Internal Medicine Prog Note ---
Internal Medicine Subjective - Subjective Patient seen and examined:: with staff, chart reviewed Patient is:: asleep, non-verbal, non-interactive, eyes closed, in bed, agitated , confused Patient Complaints of:: congestion Per staff patient has:: no adverse event, poor appetite, unstable gait, agitated , combative, refusing care, refusing labs Internal Medicine Objective - Results Result Diagrams: 08/27/17 06:05 08/27/17 06:05 Recent Labs: Laboratory Last Values WBC 5.8 Th/cmm (4.8-10.8) 08/27/17 06:05 RBC 3.51 Mil/cmm (3.80-5.20) L 08/27/17 06:05 Hgb 10.6 gm/dL (12-16) L 08/27/17 06:05 Hct 31.3 % (41.0-60) L 08/27/17 06:05 MCV 89.2 fl (81-100) 08/27/17 06:05 MCH 30.3 pg (27.0-31.0) 08/27/17 06:05 MCHC Differential 34.0 pg (28.0-36.0) 08/27/17 06:05 RDW 15.9 % (11.5-20.0) 08/27/17 06:05 Plt Count 218 Th/cmm (150-400) 08/27/17 06:05 MPV 8.0 fl 08/27/17 06:05 Neutrophils % 81.0 % (40.0-80.0) H 08/27/17 06:05 Lymphocytes % 13.3 % (20.0-50.0) L 08/27/17 06:05 Monocytes % 5.0 % (2.0-10.0) 08/27/17 06:05 Eosinophils % 0.4 % (0.0-5.0) 08/27/17 06:05 Basophils % 0.3 % (0.0-2.0) 08/27/17 06:05 Sodium 143 mEq/L (136-145) 08/27/17 06:05 Potassium 3.2 mEq/L (3.5-5.1) L 08/27/17 06:05 Chloride 108 mEq/L (98-107) H 08/27/17 06:05 Carbon Dioxide 27.3 mEq/L (21.0-31.0) 08/27/17 06:05 Anion Gap 10.9 (7.0-16.0) 08/27/17 06:05 BUN 16 mg/dL (7-25) 08/27/17 06:05 Creatinine 0.8 mg/dL (0.6-1.2) 08/27/17 06:05 Est GFR ( Amer) > 60.0 ml/min (>90) 08/27/17 06:05 Est GFR (Non-Af Amer) > 60.0 ml/min 08/27/17 06:05 BUN/Creatinine Ratio 20.0 08/27/17 06:05 Glucose 107 mg/dL (70-105) H 08/27/17 06:05 POC Glucose 83 MG/DL (70 - 105) 08/25/17 04:36 Calcium 8.9 mg/dL (8.6-10.3) 08/27/17 06:05 Magnesium 1.8 mg/dL (1.9-2.7) L 08/27/17 06:05 Total Bilirubin 0.8 mg/dL (0.3-1.0) 08/25/17 10:24 AST 11 U/L (13-39) L 08/25/17 10:24 ALT 5 U/L (7-52) L 08/25/17 10:24 Alkaline Phosphatase 50 U/L (34-104) 08/25/17 10:24 B-Natriuretic Peptide 97.0 pg/mL (5.0-100.0) 08/27/17 06:05 Total Protein 5.3 gm/dL (6.0-8.3) L 08/25/17 10:24 Albumin 3.0 gm/dL (3.7-5.3) L 08/25/17 10:24 Globulin 2.3 gm/dL 08/25/17 10:24 Albumin/Globulin Ratio 1.3 (1.0-1.8) 08/25/17 10:24 TSH 2.23 uIU/ml (0.34-5.60) 08/27/17 06:05 Urine Source CATH 08/26/17 13:00 Urine Color YELLOW 08/26/17 13:00 Urine Clarity SLIGHTLY HAZY (CLEAR) 08/26/17 13:00 Urine pH 6.5 (4.6 - 8.0) 08/26/17 13:00 Ur Specific [place] 1.010 (1.005-1.030) 08/26/17 13:00 Urine Protein TRACE mg/dL (NEGATIVE) 08/26/17 13:00 Urine Glucose (UA) NEGATIVE mg/dL (NEGATIVE) 08/26/17 13:00 Urine Ketones TRACE mg/dL (NEGATIVE) 08/26/17 13:00 Urine Blood TRACE (NEGATIVE) 08/26/17 13:00 Urine Nitrate NEGATIVE (NEGATIVE) 08/26/17 13:00 Urine Bilirubin NEGATIVE (NEGATIVE) 08/26/17 13:00 Urine Urobilinogen 0.2 E.U./dL (0.2 - 1.0) 08/26/17 13:00 Ur Leukocyte Esterase SMALL (NEGATIVE) H 08/26/17 13:00 Urine RBC 2-5 /hpf (0-5) 08/26/17 13:00 Urine WBC 6-10 /hpf (0-5) H 08/26/17 13:00 Ur Epithelial Cells FEW /lpf (FEW) 08/26/17 13:00 Urine Bacteria NONE SEEN /hpf (NONE SEEN) 08/26/17 13:00 - Physical Exam Vitals and I&O: Vital Signs Temp 97.1 F 08/27/17 12:42 Pulse 71 08/27/17 12:42 Resp 18 08/27/17 12:42 BP 118/70 08/27/17 12:42 Pulse Ox 97 08/27/17 12:42 Intake & Output 08/26/17 08/27/17 08/27/17 18:59 06:59 18:59 Intake Total 1000 1000 Output Total 300 Balance 1000 700 Weight (lbs) 43.772 kg Intake: Intake, IV Amount 1000 1000 D5-0.45NS 1,000 ml @ 80 1000 1000 mls/hr IV .[id number] [facility] Rx #:[id number] Oral 0 Output: Urine 300 Other: # Bowel Movements 0 Weight Source Bedscale Active Medications: Current Medications Acetaminophen (Tylenol) 650 mg GT Q4HR PRN PRN Reason: Pain or Fever >101 Stop: 10/23/17 19:40 Acetaminophen/Hydrocodone Bitart ([place] 5mg/325mg) 1 tab GT Q4HR PRN PRN Reason: Pain (Moderate) Stop: 10/23/17 19:40 Albuterol Sulfate (Albuterol 2.5mg/3ml Neb Ud) 2.5 mg HHN Q4HRT PRN PRN Reason: Shortness of Breath Stop: 10/23/17 19:40 Bisacodyl (Dulcolax 10 Mg Supp) 10 mg RC DAILY PRN PRN Reason: Constipation Stop: 10/23/17 19:40 Docusate Sodium (Colace) 100 mg GT DAILY PRN PRN Reason: CONSTIPATION Stop: 10/24/17 08:59 Heparin Sodium (Porcine) (Heparin) 5,000 units SUBQ Q12HR [facility] Stop: 10/24/17 20:59 Last Admin: 08/27/17 08:24 Dose: Not Given Dextrose/Sodium Chloride (D5-0.45ns) 1,000 mls @ 80 mls/hr IV .[id number] [facility] Stop: 10/24/17 12:59 Last Admin: 08/27/17 05:59 Dose: 80 mls/hr Insulin Aspart (Novolog Insulin Sliding Scale) 0 units SUBQ ACHS [facility]; Protocol Stop: 10/23/17 20:59 Last Admin: 08/27/17 11:09 Dose: Not Given Ipratropium [place] (Atrovent Neb 0.5mg/2.5ml) 0.5 mg HHN Q4HRT PRN PRN Reason: Shortness of Breath or Wheeze Stop: 10/23/17 19:40 Lactic Acid (Lac-Hydrin Cream) 1 appl TP DAILY [facility] Stop: 10/24/17 08:59 Last Admin: 08/27/17 08:19 Dose: 1 appl Lorazepam (Ativan) 0.5 mg PO Q6HR PRN; Protocol PRN Reason: Agitation Stop: 10/23/17 19:40 Magnesium Hydroxide (Milk Of Magnesia) 30 ml PO HS PRN PRN Reason: Constipation Stop: 10/23/17 19:40 Megestrol Acetate (Megace) 400 mg PO BID [facility] Stop: 10/24/17 08:59 Last Admin: 08/27/17 08:19 Dose: 400 mg Miscellaneous (Vte Chemical Prophylaxis Screen/ Admission) 1 ea MC PRN PRN PRN Reason: PROTOCOL Stop: 10/24/17 09:26 Olanzapine (Zyprexa) 5 mg PO HS [facility]; Protocol Stop: 10/23/17 20:59 Last Admin: 08/26/17 21:33 Dose: Not Given Sodium Phosphate (Fleet Enema) 135 ml RC DAILY PRN PRN Reason: Constipation Stop: 10/23/17 19:40 Zolpidem Tartrate (Ambien) 5 mg PO HS PRN PRN Reason: Insomnia Stop: 10/23/17 19:40 General: demented, disheveled, thin, cachectic HEENT: NC/AT, PERRLA Neck: Supple, No JVD, No LAD Lungs: congested, chest deformity present Cardiovascular: RRR, Normal S1, Normal S2, with murmur Abdomen: soft, non-tender, thin, positive bowel sound Extremities: excoriation, contracture, deformity Neurological: disorganized, muscle weakness, unable to follow command - Procedures Procedures: Procedures Procedure Code Date RECREATIONAL THERAPY 93.81 11/09/10 Internal Medicine Assmt/Plan - Assessment Assessment: ASSESSMENT AND PLAN: Failure to thrive, poor p.o. intake, severe protein-caloric malnutrition, diabetes, congestive heart failure, acute on chronic renal insufficiency, schizoaffective disorder, hypertension, hypokalemia, dementia, legally blind, leukocytosis, and bedbound. - Plan Plan: plan We will continue the patient on oxygen and bronchodilator treatments. We will continue with __ivf__. We will perform calorie count. If intake is poor, he may consider alternative means of feeding. We will try to get all the conservative as far as the advance directive, continue with current care with followup consult and recommendations. Psych is following. Nutritional Asmnt/Malnutr-PDOC - Dietary Evaluation Malnutrition Findings (Please click <Entered> for more info): Nutritional Asmnt/Malnutrition Start: 08/25/17 17: 28 Text: Status: Complete Freq: Protocol: Document 08/25/17 17:28 [email or web address] (Rec: 08/25/17 17:32 [email or web address]) Nutritional Asmnt/Malnutrition Patient General Information Nutritional Screening High Risk Consult Diagnosis dehydration, FTT Pertinent Medical Hx/Surgical Hx DM, CHF, kidney failure, schizophrenia, HTN, dementia, legally blind, noncompliance Subjective Information Consult received for poor oral intake. Pt seen resting in bed at time of visit. Per nurse note, pt refused breakfast and lunch today. Pt on calorie count noted. Current Diet Order/ Nutrition Support pureed, nectar thin liquid Pertinent Medications D5-0.45ns, colace, novolog, megace Pertinent Labs 08/25 K 3.0, glucose 106 Nutritional Hx/Data Height 1.68 m Height (Calculated Centimeters) 167.6 Current Weight (lbs) 50.349 kg Weight (Calculated Kilograms) 50.3 Weight (Calculated Grams) 05758.8 [place] Body Weight 130 Body Mass Index (BMI) 17.9 Weight Status Underweight GI Symptoms GI Symptoms None Last BM none Skin Integrity/Comment: redness Estimated Nutritional Goals BEE in Kcals: Using Current wt Calories/Kcals/Kg 30-35 Kcals Calculated [id number] Protein: Using Current wt Protein g/k.2 Protein Calculated 60 Fluid: ml 1500-1750ml (1ml/kcal) Nutritional Problem 1. Problem Problem inadequate food intake Etiology pt refusing to eat Signs/Symptoms: PO intake <25% since admission Malnutrition Alert Muscle Mass (Non-Severe) Mild Depletion Is there a minimum of two criteria No selected? Query Text:Check all the applicable criteria. A minimum of two criteria are recommended for diagnosis of either severe or non-severe malnutrition. Malnutrition Related to Morbid Obesity Malnutrition related to morbid obesity No Intervention/Recommendation Comments 1. Continue with current diet as ordered. Assist pt with meals and encourage oral intake. 2. Monitor PO intake, wt, labs and skin integrity 3. F/U as high risk in 2-3 days, 08/27-08/28 Expected Outcomes/Goals Expected Outcomes/Goals 1. PO intake to meet at least 75% of nutritional needs. 2. Wt stability, skin to remain intact, labs to approach WNL.
[2017-08-27] MEDS ORDERED: KCL 20mEq/100mL Premix Bag IV SCH (14:15)
[2017-08-27] MEDS ORDERED: Potassium Chloride 20 mEq ER Tab PO ONE (17:02)
[2017-08-27] MEDS: Potassium Chloride Elixir 20 mEq /15 mL UDC PO ONE ×2 (17:36→17:57)
[2017-08-27] MEDS: Docusate Sodium 100 mg/10 mL UD GT PRN (17:38)
[2017-08-28] MEDS: INSULIN ASPART SLIDING SCALE 100 UNITS/ML UNIT SUBQ SCH ×4 (08:00→22:30)
[2017-08-28] MEDS: Ammonium Lactate Cream 140 gm Tube TP SCH (09:00)
--- NOTE | 2017-08-28 11:40 | Internal Medicine Prog Note ---
Internal Medicine Subjective - Subjective Service Date: 08/28/17 Patient is:: asleep, eyes closed, in bed, agitated, confused Patient Complaints of:: congestion Per staff patient has:: no adverse event, poor appetite, unstable gait, agitated , combative, refusing care, refusing labs Internal Medicine Objective - Results Result Diagrams: 08/27/17 06:05 08/27/17 06:05 Recent Labs: Laboratory Last Values WBC 5.8 Th/cmm (4.8-10.8) 08/27/17 06:05 RBC 3.51 Mil/cmm (3.80-5.20) L 08/27/17 06:05 Hgb 10.6 gm/dL (12-16) L 08/27/17 06:05 Hct 31.3 % (41.0-60) L 08/27/17 06:05 MCV 89.2 fl (81-100) 08/27/17 06:05 MCH 30.3 pg (27.0-31.0) 08/27/17 06:05 MCHC Differential 34.0 pg (28.0-36.0) 08/27/17 06:05 RDW 15.9 % (11.5-20.0) 08/27/17 06:05 Plt Count 218 Th/cmm (150-400) 08/27/17 06:05 MPV 8.0 fl 08/27/17 06:05 Neutrophils % 81.0 % (40.0-80.0) H 08/27/17 06:05 Lymphocytes % 13.3 % (20.0-50.0) L 08/27/17 06:05 Monocytes % 5.0 % (2.0-10.0) 08/27/17 06:05 Eosinophils % 0.4 % (0.0-5.0) 08/27/17 06:05 Basophils % 0.3 % (0.0-2.0) 08/27/17 06:05 Sodium 143 mEq/L (136-145) 08/27/17 06:05 Potassium 3.2 mEq/L (3.5-5.1) L 08/27/17 06:05 Chloride 108 mEq/L (98-107) H 08/27/17 06:05 Carbon Dioxide 27.3 mEq/L (21.0-31.0) 08/27/17 06:05 Anion Gap 10.9 (7.0-16.0) 08/27/17 06:05 BUN 16 mg/dL (7-25) 08/27/17 06:05 Creatinine 0.8 mg/dL (0.6-1.2) 08/27/17 06:05 Est GFR ( Amer) > 60.0 ml/min (>90) 08/27/17 06:05 Est GFR (Non-Af Amer) > 60.0 ml/min 08/27/17 06:05 BUN/Creatinine Ratio 20.0 08/27/17 06:05 Glucose 107 mg/dL (70-105) H 08/27/17 06:05 POC Glucose 83 MG/DL (70 - 105) 08/25/17 04:36 Calcium 8.9 mg/dL (8.6-10.3) 08/27/17 06:05 Magnesium 1.8 mg/dL (1.9-2.7) L 08/27/17 06:05 Total Bilirubin 0.8 mg/dL (0.3-1.0) 08/25/17 10:24 AST 11 U/L (13-39) L 08/25/17 10:24 ALT 5 U/L (7-52) L 08/25/17 10:24 Alkaline Phosphatase 50 U/L (34-104) 08/25/17 10:24 B-Natriuretic Peptide 97.0 pg/mL (5.0-100.0) 08/27/17 06:05 Total Protein 5.3 gm/dL (6.0-8.3) L 08/25/17 10:24 Albumin 3.0 gm/dL (3.7-5.3) L 08/25/17 10:24 Globulin 2.3 gm/dL 08/25/17 10:24 Albumin/Globulin Ratio 1.3 (1.0-1.8) 08/25/17 10:24 TSH 2.23 uIU/ml (0.34-5.60) 08/27/17 06:05 Urine Source CATH 08/26/17 13:00 Urine Color YELLOW 08/26/17 13:00 Urine Clarity SLIGHTLY HAZY (CLEAR) 08/26/17 13:00 Urine pH 6.5 (4.6 - 8.0) 08/26/17 13:00 Ur Specific [place] 1.010 (1.005-1.030) 08/26/17 13:00 Urine Protein TRACE mg/dL (NEGATIVE) 08/26/17 13:00 Urine Glucose (UA) NEGATIVE mg/dL (NEGATIVE) 08/26/17 13:00 Urine Ketones TRACE mg/dL (NEGATIVE) 08/26/17 13:00 Urine Blood TRACE (NEGATIVE) 08/26/17 13:00 Urine Nitrate NEGATIVE (NEGATIVE) 08/26/17 13:00 Urine Bilirubin NEGATIVE (NEGATIVE) 08/26/17 13:00 Urine Urobilinogen 0.2 E.U./dL (0.2 - 1.0) 08/26/17 13:00 Ur Leukocyte Esterase SMALL (NEGATIVE) H 08/26/17 13:00 Urine RBC 2-5 /hpf (0-5) 08/26/17 13:00 Urine WBC 6-10 /hpf (0-5) H 08/26/17 13:00 Ur Epithelial Cells FEW /lpf (FEW) 08/26/17 13:00 Urine Bacteria NONE SEEN /hpf (NONE SEEN) 08/26/17 13:00 - Physical Exam Vitals and I&O: Vital Signs Temp 97.5 F 08/27/17 23:51 Pulse 72 08/28/17 07:30 Resp 18 08/28/17 07:30 BP 109/53 08/27/17 23:51 Pulse Ox 96 08/28/17 07:30 Intake & Output 08/27/17 08/28/17 08/28/17 18:59 06:59 18:59 Intake Total 1 Balance 1 Weight (lbs) 96 lb Intake: Intake, IV Amount 1 D5-0.45NS 1,000 ml @ 60 1 mls/hr IV .[id number] [facility] Rx #:[id number] Other: Stool Characteristics Soft Weight Source Estimated Active Medications: Current Medications Acetaminophen (Tylenol) 650 mg GT Q4HR PRN PRN Reason: Pain or Fever >101 Stop: 10/23/17 19:40 Acetaminophen/Hydrocodone Bitart ([place] 5mg/325mg) 1 tab GT Q4HR PRN PRN Reason: Pain (Moderate) Stop: 10/23/17 19:40 Albuterol Sulfate (Albuterol 2.5mg/3ml Neb Ud) 2.5 mg HHN Q4HRT PRN PRN Reason: Shortness of Breath Stop: 10/23/17 19:40 Bisacodyl (Dulcolax 10 Mg Supp) 10 mg RC DAILY PRN PRN Reason: Constipation Stop: 10/23/17 19:40 Docusate Sodium (Colace) 100 mg GT DAILY PRN PRN Reason: CONSTIPATION Stop: 10/24/17 08:59 Last Admin: 08/27/17 17:38 Dose: 100 mg Heparin Sodium (Porcine) (Heparin) 5,000 units SUBQ Q12HR [facility] Stop: 10/24/17 20:59 Last Admin: 08/27/17 21:16 Dose: Not Given Dextrose/Sodium Chloride (D5-0.45ns) 1,000 mls @ 60 mls/hr IV .[id number] [facility] Stop: 10/26/17 14:14 Last Infusion: 08/27/17 14:27 Dose: 0 mls/hr Insulin Aspart (Novolog Insulin Sliding Scale) 0 units SUBQ ACHS [facility]; Protocol Stop: 10/23/17 20:59 Last Admin: 08/27/17 21:16 Dose: Not Given Ipratropium [place] (Atrovent Neb 0.5mg/2.5ml) 0.5 mg HHN Q4HRT PRN PRN Reason: Shortness of Breath or Wheeze Stop: 10/23/17 19:40 Lactic Acid (Lac-Hydrin Cream) 1 appl TP DAILY FOZIA Stop: 10/24/17 08:59 Last Admin: 08/27/17 08:19 Dose: 1 appl Lorazepam (Ativan) 0.5 mg PO Q6HR PRN; Protocol PRN Reason: Agitation Stop: 10/23/17 19:40 Magnesium Hydroxide (Milk Of Magnesia) 30 ml PO HS PRN PRN Reason: Constipation Stop: 10/23/17 19:40 Megestrol Acetate (Megace) 400 mg PO BID FOZIA Stop: 10/24/17 08:59 Last Admin: 08/27/17 17:36 Dose: 400 mg Miscellaneous (Vte Chemical Prophylaxis Screen/ Admission) 1 ea MC PRN PRN PRN Reason: PROTOCOL Stop: 10/24/17 09:26 Olanzapine (Zyprexa) 5 mg PO HS FOZIA; Protocol Stop: 10/23/17 20:59 Last Admin: 08/27/17 21:17 Dose: Not Given Sodium Phosphate (Fleet Enema) 135 ml RC DAILY PRN PRN Reason: Constipation Stop: 10/23/17 19:40 Zolpidem Tartrate (Ambien) 5 mg PO HS PRN PRN Reason: Insomnia Stop: 10/23/17 19:40 General: demented, disheveled, thin, cachectic HEENT: NC/AT, PERRLA Neck: Supple, No JVD, No LAD Lungs: congested, chest deformity present Cardiovascular: RRR, Normal S1, Normal S2, with murmur Abdomen: soft, non-tender, thin, positive bowel sound Extremities: excoriation, contracture, deformity Neurological: disorganized, muscle weakness, unable to follow command - Procedures Procedures: Procedures Procedure Code Date RECREATIONAL THERAPY 93.81 11/09/10 Internal Medicine Assmt/Plan - Assessment Assessment: Failure to thrive poor p.o. intake severe protein-caloric malnutrition diabetes congestive heart failure acute on chronic renal insufficiency schizoaffective disorder hypertension hypokalemia dementia legally blind leukocytosis bedbound. noncompliant - Plan Plan: mag/cbc/bmp in am cont with calorie count ivf for hydration psych follow up continue current plan of care Nutritional Asmnt/Malnutr-PDOC - Dietary Evaluation Malnutrition Findings (Please click <Entered> for more info): Nutritional Asmnt/Malnutrition Start: 08/25/17 17: 28 Text: Status: Complete Freq: Protocol: Document 08/25/17 17:28 LCHENG (Rec: 08/25/17 17:32 [email or web address]) Nutritional Asmnt/Malnutrition Patient General Information Nutritional Screening High Risk Consult Diagnosis dehydration, FTT Pertinent Medical Hx/Surgical Hx DM, CHF, kidney failure, schizophrenia, HTN, dementia, legally blind, noncompliance Subjective Information Consult received for poor oral intake. Pt seen resting in bed at time of visit. Per nurse note, pt refused breakfast and lunch today. Pt on calorie count noted. Current Diet Order/ Nutrition Support pureed, nectar thin liquid Pertinent Medications D5-0.45ns, colace, novolog, megace Pertinent Labs 7/2 K 3.0, glucose 106 Nutritional Hx/Data Height 5 ft 6 in Height (Calculated Centimeters) 167.6 Current Weight (lbs) 111 lb Weight (Calculated Kilograms) 50.3 Weight (Calculated Grams) 54328.8 [place] Body Weight 130 Body Mass Index (BMI) 17.9 Weight Status Underweight GI Symptoms GI Symptoms None Last BM none Skin Integrity/Comment: redness Estimated Nutritional Goals BEE in Kcals: Using Current wt Calories/Kcals/Kg 30-35 Kcals Calculated 2731-6258 Protein: Using Current wt Protein g/k.2 Protein Calculated 60 Fluid: ml 1500-1750ml (1ml/kcal) Nutritional Problem 1. Problem Problem inadequate food intake Etiology pt refusing to eat Signs/Symptoms: PO intake <25% since admission Malnutrition Alert Muscle Mass (Non-Severe) Mild Depletion Is there a minimum of two criteria No selected? Query Text:Check all the applicable criteria. A minimum of two criteria are recommended for diagnosis of either severe or non-severe malnutrition. Malnutrition Related to Morbid Obesity Malnutrition related to morbid obesity No Intervention/Recommendation Comments 1. Continue with current diet as ordered. Assist pt with meals and encourage oral intake. 2. Monitor PO intake, wt, labs and skin integrity 3. F/U as high risk in 2-3 days, 08/27-08/28 Expected Outcomes/Goals Expected Outcomes/Goals 1. PO intake to meet at least 75% of nutritional needs. 2. Wt stability, skin to remain intact, labs to approach WNL.
[2017-08-29] MEDS: INSULIN ASPART SLIDING SCALE 100 UNITS/ML UNIT SUBQ SCH ×4 (07:30→21:19)
--- NOTE | 2017-08-29 12:29 | Internal Medicine Prog Note ---
Internal Medicine Subjective - Subjective Service Date: 08/29/17 Patient seen and examined:: with staff Patient is:: asleep, eyes closed, in bed, agitated, confused Patient Complaints of:: congestion Per staff patient has:: no adverse event, poor appetite, unstable gait, agitated , combative, refusing care, refusing labs Internal Medicine Objective - Results Result Diagrams: 08/27/17 06:05 08/27/17 06:05 Recent Labs: Laboratory Last Values WBC 5.8 Th/cmm (4.8-10.8) 08/27/17 06:05 RBC 3.51 Mil/cmm (3.80-5.20) L 08/27/17 06:05 Hgb 10.6 gm/dL (12-16) L 08/27/17 06:05 Hct 31.3 % (41.0-60) L 08/27/17 06:05 MCV 89.2 fl (81-100) 08/27/17 06:05 MCH 30.3 pg (27.0-31.0) 08/27/17 06:05 MCHC Differential 34.0 pg (28.0-36.0) 08/27/17 06:05 RDW 15.9 % (11.5-20.0) 08/27/17 06:05 Plt Count 218 Th/cmm (150-400) 08/27/17 06:05 MPV 8.0 fl 08/27/17 06:05 Neutrophils % 81.0 % (40.0-80.0) H 08/27/17 06:05 Lymphocytes % 13.3 % (20.0-50.0) L 08/27/17 06:05 Monocytes % 5.0 % (2.0-10.0) 08/27/17 06:05 Eosinophils % 0.4 % (0.0-5.0) 08/27/17 06:05 Basophils % 0.3 % (0.0-2.0) 08/27/17 06:05 Sodium 143 mEq/L (136-145) 08/27/17 06:05 Potassium 3.2 mEq/L (3.5-5.1) L 08/27/17 06:05 Chloride 108 mEq/L (98-107) H 08/27/17 06:05 Carbon Dioxide 27.3 mEq/L (21.0-31.0) 08/27/17 06:05 Anion Gap 10.9 (7.0-16.0) 08/27/17 06:05 BUN 16 mg/dL (7-25) 08/27/17 06:05 Creatinine 0.8 mg/dL (0.6-1.2) 08/27/17 06:05 Est GFR ( Amer) > 60.0 ml/min (>90) 08/27/17 06:05 Est GFR (Non-Af Amer) > 60.0 ml/min 08/27/17 06:05 BUN/Creatinine Ratio 20.0 08/27/17 06:05 Glucose 107 mg/dL (70-105) H 08/27/17 06:05 POC Glucose 84 MG/DL (70-105) 08/28/17 05:09 Calcium 8.9 mg/dL (8.6-10.3) 08/27/17 06:05 Magnesium 1.8 mg/dL (1.9-2.7) L 08/27/17 06:05 Total Bilirubin 0.8 mg/dL (0.3-1.0) 08/25/17 10:24 AST 11 U/L (13-39) L 08/25/17 10:24 ALT 5 U/L (7-52) L 08/25/17 10:24 Alkaline Phosphatase 50 U/L (34-104) 08/25/17 10:24 B-Natriuretic Peptide 97.0 pg/mL (5.0-100.0) 08/27/17 06:05 Total Protein 5.3 gm/dL (6.0-8.3) L 08/25/17 10:24 Albumin 3.0 gm/dL (3.7-5.3) L 08/25/17 10:24 Globulin 2.3 gm/dL 08/25/17 10:24 Albumin/Globulin Ratio 1.3 (1.0-1.8) 08/25/17 10:24 TSH 2.23 uIU/ml (0.34-5.60) 08/27/17 06:05 Urine Source CATH 08/26/17 13:00 Urine Color YELLOW 08/26/17 13:00 Urine Clarity SLIGHTLY HAZY (CLEAR) 08/26/17 13:00 Urine pH 6.5 (4.6 - 8.0) 08/26/17 13:00 Ur Specific [place] 1.010 (1.005-1.030) 08/26/17 13:00 Urine Protein TRACE mg/dL (NEGATIVE) 08/26/17 13:00 Urine Glucose (UA) NEGATIVE mg/dL (NEGATIVE) 08/26/17 13:00 Urine Ketones TRACE mg/dL (NEGATIVE) 08/26/17 13:00 Urine Blood TRACE (NEGATIVE) 08/26/17 13:00 Urine Nitrate NEGATIVE (NEGATIVE) 08/26/17 13:00 Urine Bilirubin NEGATIVE (NEGATIVE) 08/26/17 13:00 Urine Urobilinogen 0.2 E.U./dL (0.2 - 1.0) 08/26/17 13:00 Ur Leukocyte Esterase SMALL (NEGATIVE) H 08/26/17 13:00 Urine RBC 2-5 /hpf (0-5) 08/26/17 13:00 Urine WBC 6-10 /hpf (0-5) H 08/26/17 13:00 Ur Epithelial Cells FEW /lpf (FEW) 08/26/17 13:00 Urine Bacteria NONE SEEN /hpf (NONE SEEN) 08/26/17 13:00 - Physical Exam Vitals and I&O: Vital Signs Temp 98.2 F 08/29/17 10:47 Pulse 70 08/29/17 10:47 Resp 18 08/29/17 10:47 BP 116/78 08/29/17 10:47 Pulse Ox 98 08/29/17 10:47 Intake & Output 08/28/17 08/29/17 08/29/17 18:59 06:59 18:59 Output Total 200 Balance -200 Weight (lbs) 99 lb 1 oz Output: Urine 200 Other: Stool Characteristics Soft Soft Soft Weight Source Bedscale Active Medications: Current Medications Acetaminophen (Tylenol) 650 mg GT Q4HR PRN PRN Reason: Pain or Fever >101 Stop: 10/23/17 19:40 Acetaminophen/Hydrocodone Bitart ([place] 5mg/325mg) 1 tab GT Q4HR PRN PRN Reason: Pain (Moderate) Stop: 10/23/17 19:40 Albuterol Sulfate (Albuterol 2.5mg/3ml Neb Ud) 2.5 mg HHN Q4HRT PRN PRN Reason: Shortness of Breath Stop: 10/23/17 19:40 Bisacodyl (Dulcolax 10 Mg Supp) 10 mg RC DAILY PRN PRN Reason: Constipation Stop: 10/23/17 19:40 Docusate Sodium (Colace) 100 mg GT DAILY PRN PRN Reason: CONSTIPATION Stop: 10/24/17 08:59 Last Admin: 08/27/17 17:38 Dose: 100 mg Heparin Sodium (Porcine) (Heparin) 5,000 units SUBQ Q12HR FO[facility] Stop: 10/24/17 20:59 Last Admin: 08/28/17 22:29 Dose: Not Given Dextrose/Sodium Chloride (D5-0.45ns) 1,000 mls @ 60 mls/hr IV .[id number] [facility] Stop: 10/26/17 14:14 Last Infusion: 08/27/17 14:27 Dose: 0 mls/hr Insulin Aspart (Novolog Insulin Sliding Scale) 0 units SUBQ ACHS [facility]; Protocol Stop: 10/23/17 20:59 Last Admin: 08/28/17 22:30 Dose: Not Given Ipratropium [place] (Atrovent Neb 0.5mg/2.5ml) 0.5 mg HHN Q4HRT PRN PRN Reason: Shortness of Breath or Wheeze Stop: 10/23/17 19:40 Lactic Acid (Lac-Hydrin Cream) 1 appl TP DAILY FOZIA Stop: 10/24/17 08:59 Last Admin: 08/28/17 09:00 Dose: Not Given Lorazepam (Ativan) 0.5 mg PO Q6HR PRN; Protocol PRN Reason: Agitation Stop: 10/23/17 19:40 Magnesium Hydroxide (Milk Of Magnesia) 30 ml PO HS PRN PRN Reason: Constipation Stop: 10/23/17 19:40 Megestrol Acetate (Megace) 400 mg PO BID FOZIA Stop: 10/24/17 08:59 Last Admin: 08/28/17 09:00 Dose: Not Given Miscellaneous (Vte Chemical Prophylaxis Screen/ Admission) 1 ea MC PRN PRN PRN Reason: PROTOCOL Stop: 10/24/17 09:26 Olanzapine (Zyprexa) 5 mg PO HS FO[facility]; Protocol Stop: 10/23/17 20:59 Last Admin: 08/28/17 22:30 Dose: Not Given Sodium Phosphate (Fleet Enema) 135 ml RC DAILY PRN PRN Reason: Constipation Stop: 10/23/17 19:40 Zolpidem Tartrate (Ambien) 5 mg PO HS PRN PRN Reason: Insomnia Stop: 10/23/17 19:40 General: demented, disheveled, thin, cachectic HEENT: NC/AT, PERRLA Neck: Supple, No JVD, No LAD Lungs: congested, chest deformity present Cardiovascular: RRR, Normal S1, Normal S2, with murmur Abdomen: soft, non-tender, thin, positive bowel sound Extremities: excoriation, contracture, deformity Neurological: disorganized, muscle weakness, unable to follow command - Procedures Procedures: Procedures Procedure Code Date RECREATIONAL THERAPY 93.81 11/09/10 Internal Medicine Assmt/Plan - Assessment Assessment: Failure to thrive poor p.o. intake severe protein-caloric malnutrition diabetes congestive heart failure acute on chronic renal insufficiency schizoaffective disorder hypertension hypokalemia dementia legally blind leukocytosis bedbound. noncompliant - Plan Plan: cont with calorie count ivf for hydration psych follow up continue current plan of care Nutritional Asmnt/Malnutr-PDOC - Dietary Evaluation Malnutrition Findings (Please click <Entered> for more info): Nutritional Asmnt/Malnutrition Start: 08/25/17 17: 28 Text: Status: Complete Freq: Protocol: Document 08/25/17 17:28 LCHENG (Rec: 08/25/17 17:32 [email or web address]) Nutritional Asmnt/Malnutrition Patient General Information Nutritional Screening High Risk Consult Diagnosis dehydration, FTT Pertinent Medical Hx/Surgical Hx DM, CHF, kidney failure, schizophrenia, HTN, dementia, legally blind, noncompliance Subjective Information Consult received for poor oral intake. Pt seen resting in bed at time of visit. Per nurse note, pt refused breakfast and lunch today. Pt on calorie count noted. Current Diet Order/ Nutrition Support pureed, nectar thin liquid Pertinent Medications D5-0.45ns, colace, novolog, megace Pertinent Labs 7/2 K 3.0, glucose 106 Nutritional Hx/Data Height 5 ft 6 in Height (Calculated Centimeters) 167.6 Current Weight (lbs) 111 lb Weight (Calculated Kilograms) 50.3 Weight (Calculated Grams) 48673.8 [place] Body Weight 130 Body Mass Index (BMI) 17.9 Weight Status Underweight GI Symptoms GI Symptoms None Last BM none Skin Integrity/Comment: redness Estimated Nutritional Goals BEE in Kcals: Using Current wt Calories/Kcals/Kg 30-35 Kcals Calculated 1365-0458 Protein: Using Current wt Protein g/k.2 Protein Calculated 60 Fluid: ml 1500-1750ml (1ml/kcal) Nutritional Problem 1. Problem Problem inadequate food intake Etiology pt refusing to eat Signs/Symptoms: PO intake <25% since admission Malnutrition Alert Muscle Mass (Non-Severe) Mild Depletion Is there a minimum of two criteria No selected? Query Text:Check all the applicable criteria. A minimum of two criteria are recommended for diagnosis of either severe or non-severe malnutrition. Malnutrition Related to Morbid Obesity Malnutrition related to morbid obesity No Intervention/Recommendation Comments 1. Continue with current diet as ordered. Assist pt with meals and encourage oral intake. 2. Monitor PO intake, wt, labs and skin integrity 3. F/U as high risk in 2-3 days, 08/27-08/28 Expected Outcomes/Goals Expected Outcomes/Goals 1. PO intake to meet at least 75% of nutritional needs. 2. Wt stability, skin to remain intact, labs to approach WNL.
[2017-08-29] MEDS: Ammonium Lactate Cream 140 gm Tube TP SCH (14:19)
[2017-08-29 14:29] LABS: URINE MICROSCOPIC INDICATED? YES; URINE SOURCE FOLEY PORT
[2017-08-29 14:58] LABS: URINE BILIRUBIN NEGATIVE (NEGATIVE); URINE BLOOD TRACE (NEGATIVE); URINE GLUCOSE (UA) NEGATIVE (NEGATIVE); URINE KETONE NEGATIVE (NEGATIVE); URINE LEUKOCYTE ESTERASE NEGATIVE (NEGATIVE); URINE NITRATE NEGATIVE (NEGATIVE); URINE PH 7.5 (4.6 - 8.0); URINE PROTEIN NEGATIVE (NEGATIVE); URINE UROBILINOGEN 0.2 E.U./dL (0.2 - 1.0)
[2017-08-29 14:59] LABS: URINE COLOR YELLOW
[2017-08-29] MEDS ORDERED: Levofloxacin 500mg/100mL 500 MG/100 ML BAG IV SCH (15:00)
[2017-08-29 15:02] LABS: URINE BACTERIA FEW /hpf (NONE SEEN); URINE CLARITY SLIGHTLY HAZY (CLEAR); URINE EPITHELIAL CELLS OCCASIONAL /lpf (FEW); URINE RBC 0-2 /hpf (0-5); URINE WBC 0-2 /hpf (0-5)
--- NOTE | 2017-08-29 19:27 | Consultation ---
DATE OF CONSULTATION: 08/29/2017 INPATIENT GASTROINTESTINAL CONSULTATION REFERRING PHYSICIAN: Dr. Sanchez. REASON FOR CONSULTATION: Anorexia, dysphagia. HISTORY OF PRESENT ILLNESS: A 67-year-old female who was admitted to the hospital because she was having failure to thrive. She was also at the [facility] recently. She is refusing to eat. She denies having any . No pain and is a poor historian. PAST MEDICAL HISTORY: Diabetes, congestive heart failure, renal insufficiency, hypertension, schizoaffective disorder, psychosis. PAST SURGICAL HISTORY: None to add recently. FAMILY HISTORY: Noncontributory. SOCIAL HISTORY: No tobacco, alcohol, or IV drug usage. Resident of skilled facility. ALLERGIES: PENICILLIN AND DEPAKOTE. CURRENT MEDICATIONS: Tylenol, [place], albuterol, Dulcolax, Colace, heparin, insulin, Atrovent, Ativan, milk of magnesia, Megace, Zyprexa, Ambien, Fleet enema. REVIEW OF SYSTEMS: Ten point review of system was performed and the pertinent positive was the dysphagia, anorexia, diabetes. All other systems were otherwise negative. PHYSICAL EXAMINATION: VITAL SIGNS: Temperature 97.1, breathing 18, pulse of 61, blood pressure 95/56, satting 96%. GENERAL: A thin, no apparent distress. EYES: Anicteric. Normal conjunctivae. HEENT: Normocephalic, atraumatic. Moist mucous membranes. NECK: Soft, supple. CHEST: Clear. No effort. CARDIOVASCULAR: Regular rate and rhythm. ABDOMEN: Soft, nontender, nondistended. SKIN: Warm, dry. EXTREMITIES: Reveal no cyanosis. PSYCHOLOGICAL: Awake and alert. LABORATORY DATA: Show white count 5.8, hemoglobin 10.6, platelets of 218. Total bilirubin 0.8, AST 11, ALT 5, alkaline phosphatase 50. IMPRESSION: A 67-year-old female with anorexia, dysphagia. The patient also has underlying history of diabetes, schizoaffective disorder, renal insufficiency, congestive heart failure, hypertension, which will defer to primary team to manage. The patient was offered PEG which she is refusing. PLAN: 1. Continue to encourage p.o. diet. 2. Consider trial of Megace. 3. Consider psych evaluation to see if they can improve her underlying psychiatric illness where she would come around and be willing to eat. 4. Alternative options could be TPN versus NG tube. 5. PEG can be done in the future if the patient gives consent, but this time, she is refusing. An alternative would be to get the conservator to give consent. 6. I made an attempt to call the hospitalist setting call me back. Thank you for allowing me to participate. Please call me if any questions. JOB# [id number]
[2017-08-30 01:33] VITALS: BP 120/60
--- NOTE | 2017-08-30 04:39 | Progress Notes ---
DATE: 08/29/2017 SUBJECTIVE: Staff was spoken to. The patient is interviewed. Mood is noted to be dysphoric. The patient is still paranoid and not providing much of information. The patient is staring into the space. The patient is on a low dose of the Zyprexa. PLAN: To continue the patient with the supportive therapy and continue the current medications and follow. The patient is gravely disabled and malnourished at this time. Plan to continue the patient with the current medications and followup. [facility]# [id number]
[2017-08-30] MEDS: INSULIN ASPART SLIDING SCALE 100 UNITS/ML UNIT SUBQ SCH ×4 (08:02→21:34)
[2017-08-30] MEDS ORDERED: Probiotic Screen MC PRN (09:00)
[2017-08-30] MEDS: Lactobacillus Rhamnosus GG 15 Billion CFU CAP.SPRINK PO SCH (09:24)
[2017-08-30] MEDS: Ammonium Lactate Cream 140 gm Tube TP SCH (09:24)
[2017-08-30] MEDS: D5-0.45NS 1,000 ML IV SCH (10:41)
--- NOTE | 2017-08-30 14:02 | Internal Medicine Prog Note ---
Internal Medicine Subjective - Subjective Patient seen and examined:: with staff, chart reviewed Patient is:: asleep, eyes closed, in bed, agitated, confused Patient Complaints of:: congestion Per staff patient has:: no adverse event, poor appetite, unstable gait, agitated , combative, refusing care, refusing labs Internal Medicine Objective - Results Result Diagrams: 08/27/17 06:05 08/27/17 06:05 Recent Labs: Laboratory Last Values WBC 5.8 Th/cmm (4.8-10.8) 08/27/17 06:05 RBC 3.51 Mil/cmm (3.80-5.20) L 08/27/17 06:05 Hgb 10.6 gm/dL (12-16) L 08/27/17 06:05 Hct 31.3 % (41.0-60) L 08/27/17 06:05 MCV 89.2 fl (81-100) 08/27/17 06:05 MCH 30.3 pg (27.0-31.0) 08/27/17 06:05 MCHC Differential 34.0 pg (28.0-36.0) 08/27/17 06:05 RDW 15.9 % (11.5-20.0) 08/27/17 06:05 Plt Count 218 Th/cmm (150-400) 08/27/17 06:05 MPV 8.0 fl 08/27/17 06:05 Neutrophils % 81.0 % (40.0-80.0) H 08/27/17 06:05 Lymphocytes % 13.3 % (20.0-50.0) L 08/27/17 06:05 Monocytes % 5.0 % (2.0-10.0) 08/27/17 06:05 Eosinophils % 0.4 % (0.0-5.0) 08/27/17 06:05 Basophils % 0.3 % (0.0-2.0) 08/27/17 06:05 Sodium 143 mEq/L (136-145) 08/27/17 06:05 Potassium 3.2 mEq/L (3.5-5.1) L 08/27/17 06:05 Chloride 108 mEq/L (98-107) H 08/27/17 06:05 Carbon Dioxide 27.3 mEq/L (21.0-31.0) 08/27/17 06:05 Anion Gap 10.9 (7.0-16.0) 08/27/17 06:05 BUN 16 mg/dL (7-25) 08/27/17 06:05 Creatinine 0.8 mg/dL (0.6-1.2) 08/27/17 06:05 Est GFR ( Amer) > 60.0 ml/min (>90) 08/27/17 06:05 Est GFR (Non-Af Amer) > 60.0 ml/min 08/27/17 06:05 BUN/Creatinine Ratio 20.0 08/27/17 06:05 Glucose 107 mg/dL (70-105) H 08/27/17 06:05 POC Glucose 85 MG/DL (70 - 105) 08/30/17 12:11 Calcium 8.9 mg/dL (8.6-10.3) 08/27/17 06:05 Magnesium 1.8 mg/dL (1.9-2.7) L 08/27/17 06:05 Total Bilirubin 0.8 mg/dL (0.3-1.0) 08/25/17 10:24 AST 11 U/L (13-39) L 08/25/17 10:24 ALT 5 U/L (7-52) L 08/25/17 10:24 Alkaline Phosphatase 50 U/L (34-104) 08/25/17 10:24 B-Natriuretic Peptide 97.0 pg/mL (5.0-100.0) 08/27/17 06:05 Total Protein 5.3 gm/dL (6.0-8.3) L 08/25/17 10:24 Albumin 3.0 gm/dL (3.7-5.3) L 08/25/17 10:24 Globulin 2.3 gm/dL 08/25/17 10:24 Albumin/Globulin Ratio 1.3 (1.0-1.8) 08/25/17 10:24 TSH 2.23 uIU/ml (0.34-5.60) 08/27/17 06:05 Urine Source [place] 08/29/17 13:45 Urine Color YELLOW 08/29/17 13:45 Urine Clarity SLIGHTLY HAZY (CLEAR) 08/29/17 13:45 Urine pH 7.5 (4.6 - 8.0) 08/29/17 13:45 Ur Specific [place] 1.010 (1.005-1.030) 08/29/17 13:45 Urine Protein NEGATIVE mg/dL (NEGATIVE) 08/29/17 13:45 Urine Glucose (UA) NEGATIVE mg/dL (NEGATIVE) 08/29/17 13:45 Urine Ketones NEGATIVE mg/dL (NEGATIVE) 08/29/17 13:45 Urine Blood TRACE (NEGATIVE) 08/29/17 13:45 Urine Nitrate NEGATIVE (NEGATIVE) 08/29/17 13:45 Urine Bilirubin NEGATIVE (NEGATIVE) 08/29/17 13:45 Urine Urobilinogen 0.2 E.U./dL (0.2 - 1.0) 08/29/17 13:45 Ur Leukocyte Esterase NEGATIVE (NEGATIVE) 08/29/17 13:45 Urine RBC 0-2 /hpf (0-5) 08/29/17 13:45 Urine WBC 0-2 /hpf (0-5) 08/29/17 13:45 Ur Epithelial Cells OCCASIONAL /lpf (FEW) 08/29/17 13:45 Urine Bacteria FEW /hpf (NONE SEEN) 08/29/17 13:45 - Physical Exam Vitals and I&O: Vital Signs Temp 98.1 F 08/30/17 11:44 Pulse 67 08/30/17 11:44 Resp 18 08/30/17 11:44 BP 110/76 08/30/17 11:44 Pulse Ox 100 08/30/17 11:44 Intake & Output 08/29/17 08/30/17 08/30/17 18:59 06:59 18:59 Intake Total 0 0 Output Total 350 450 Balance -350 -450 0 Weight (lbs) 44.906 kg 44.14 kg Intake: Intake, IV Amount 0 D5-0.45NS 1,000 ml @ 60 0 mls/hr IV .[id number] [facility] Rx #:[id number] Oral 0 Output: Urine 350 450 Other: Stool Characteristics Soft Soft Weight Source Bedscale Bedscale Active Medications: Current Medications Acetaminophen (Tylenol) 650 mg GT Q4HR PRN PRN Reason: Pain or Fever >101 Stop: 10/23/17 19:40 Acetaminophen/Hydrocodone Bitart ([place] 5mg/325mg) 1 tab GT Q4HR PRN PRN Reason: Pain (Moderate) Stop: 10/23/17 19:40 Albuterol Sulfate (Albuterol 2.5mg/3ml Neb Ud) 2.5 mg HHN Q4HRT PRN PRN Reason: Shortness of Breath Stop: 10/23/17 19:40 Bisacodyl (Dulcolax 10 Mg Supp) 10 mg RC DAILY PRN PRN Reason: Constipation Stop: 10/23/17 19:40 Docusate Sodium (Colace) 100 mg GT DAILY PRN PRN Reason: CONSTIPATION Stop: 10/24/17 08:59 Last Admin: 08/27/17 17:38 Dose: 100 mg Heparin Sodium (Porcine) (Heparin) 5,000 units SUBQ Q12HR [facility] Stop: 10/24/17 20:59 Last Admin: 08/30/17 09:24 Dose: Not Given Dextrose/Sodium Chloride (D5-0.45ns) 1,000 mls @ 60 mls/hr IV .[id number] [facility] Stop: 10/26/17 14:14 Last Admin: 08/30/17 10:41 Dose: 60 mls/hr Levofloxacin (Levaquin Pb) 250 mg in 50 mls @ 50 mls/hr IV Q24H [facility] Stop: 10/29/17 14:59 Insulin Aspart (Novolog Insulin Sliding Scale) 0 units SUBQ ACHS [facility]; Protocol Stop: 10/23/17 20:59 Last Admin: 08/30/17 12:16 Dose: Not Given Ipratropium [place] (Atrovent Neb 0.5mg/2.5ml) 0.5 mg HHN Q4HRT PRN PRN Reason: Shortness of Breath or Wheeze Stop: 10/23/17 19:40 Lactic Acid (Lac-Hydrin Cream) 1 appl TP DAILY [facility] Stop: 10/24/17 08:59 Last Admin: 08/30/17 09:24 Dose: Not Given Lactobacillus Rhamnosus (Culturelle 15b) 1 each PO DAILY [facility] Stop: 10/29/17 08:59 Last Admin: 08/30/17 09:24 Dose: Not Given Lorazepam (Ativan) 0.5 mg PO Q6HR PRN; Protocol PRN Reason: Agitation Stop: 10/23/17 19:40 Magnesium Hydroxide (Milk Of Magnesia) 30 ml PO HS PRN PRN Reason: Constipation Stop: 10/23/17 19:40 Megestrol Acetate (Megace) 400 mg PO BID [facility] Stop: 10/24/17 08:59 Last Admin: 08/30/17 09:25 Dose: Not Given Miscellaneous (Vte Chemical Prophylaxis Screen/ Admission) 1 ea MC PRN PRN PRN Reason: PROTOCOL Stop: 10/24/17 09:26 Miscellaneous (Probiotic Screen) 1 ea MC PRN PRN PRN Reason: PROTOCOL Stop: 10/29/17 08:59 Olanzapine (Zyprexa) 5 mg PO HS [facility]; Protocol Stop: 10/23/17 20:59 Last Admin: 08/29/17 21:20 Dose: Not Given Sodium Phosphate (Fleet Enema) 135 ml RC DAILY PRN PRN Reason: Constipation Stop: 10/23/17 19:40 Zolpidem Tartrate (Ambien) 5 mg PO HS PRN PRN Reason: Insomnia Stop: 10/23/17 19:40 General: demented, disheveled, thin, cachectic HEENT: NC/AT, PERRLA Neck: Supple, No JVD, No LAD Lungs: congested, chest deformity present Cardiovascular: RRR, Normal S1, Normal S2, with murmur Abdomen: soft, non-tender, thin, positive bowel sound Extremities: excoriation, contracture, deformity Neurological: disorganized, muscle weakness, unable to follow command - Procedures Procedures: Procedures Procedure Code Date RECREATIONAL THERAPY 93.81 11/09/10 Internal Medicine Assmt/Plan - Assessment Assessment: ASSESSMENT AND PLAN: Failure to thrive, poor p.o. intake, severe protein-caloric malnutrition, diabetes, congestive heart failure, acute on chronic renal insufficiency, schizoaffective disorder, hypertension, hypokalemia, dementia, legally blind, leukocytosis, and bedbound. - Plan Plan: plan We will continue the patient on oxygen and bronchodilator treatments. We will continue with __ivf__. We will perform calorie count. If intake is poor, he may consider alternative means of feeding. We will try to get all the conservative as far as the advance directive, continue with current care with followup consult and recommendations. Psych is following. Nutritional Asmnt/Malnutr-PDOC - Dietary Evaluation Malnutrition Findings (Please click <Entered> for more info): Nutritional Asmnt/Malnutrition Start: 08/25/17 17: 28 Text: Status: Complete Freq: Protocol: Document 08/25/17 17:28 REDD (Rec: 08/25/17 17:32 [id number]) Nutritional Asmnt/Malnutrition Patient General Information Nutritional Screening High Risk Consult Diagnosis dehydration, FTT Pertinent Medical Hx/Surgical Hx DM, CHF, kidney failure, schizophrenia, HTN, dementia, legally blind, noncompliance Subjective Information Consult received for poor oral intake. Pt seen resting in bed at time of visit. Per nurse note, pt refused breakfast and lunch today. Pt on calorie count noted. Current Diet Order/ Nutrition Support pureed, nectar thin liquid Pertinent Medications D5-0.45ns, colace, novolog, megace Pertinent Labs 08/25 K 3.0, glucose 106 Nutritional Hx/Data Height 1.68 m Height (Calculated Centimeters) 167.6 Current Weight (lbs) 50.349 kg Weight (Calculated Kilograms) 50.3 Weight (Calculated Grams) 07644.8 [place] Body Weight 130 Body Mass Index (BMI) 17.9 Weight Status Underweight GI Symptoms GI Symptoms None Last BM none Skin Integrity/Comment: redness Estimated Nutritional Goals BEE in Kcals: Using Current wt Calories/Kcals/Kg 30-35 Kcals Calculated 5699-3279 Protein: Using Current wt Protein g/k.2 Protein Calculated 60 Fluid: ml 1500-1750ml (1ml/kcal) Nutritional Problem 1. Problem Problem inadequate food intake Etiology pt refusing to eat Signs/Symptoms: PO intake <25% since admission Malnutrition Alert Muscle Mass (Non-Severe) Mild Depletion Is there a minimum of two criteria No selected? Query Text:Check all the applicable criteria. A minimum of two criteria are recommended for diagnosis of either severe or non-severe malnutrition. Malnutrition Related to Morbid Obesity Malnutrition related to morbid obesity No Intervention/Recommendation Comments 1. Continue with current diet as ordered. Assist pt with meals and encourage oral intake. 2. Monitor PO intake, wt, labs and skin integrity 3. F/U as high risk in 2-3 days, 08/27-08/28 Expected Outcomes/Goals Expected Outcomes/Goals 1. PO intake to meet at least 75% of nutritional needs. 2. Wt stability, skin to remain intact, labs to approach WNL.
[2017-08-30] MEDS: Levofloxacin 250mg/50mL 250 MG/50 ML BAG IV SCH (15:24)
[2017-08-31] MEDS: D5-0.45NS 1,000 ML IV SCH (05:06)
[2017-08-31 05:14] LABS: % BASOPHILS 0.1 % (0.0-2.0); % EOSINOPHILS 0.6 % (0.0-5.0); % LYMPHOCYTES 14.9 % (20.0-50.0); % MONOCYTES 7.4 % (2.0-10.0); HEMATOCRIT 32.9 % (41.0-60); LYMPHOCYTE ABSOLUTE 0.9 Th/cmm (1.5-3.0); MEAN CELL VOLUME 89.2 fl (81-100); MEAN CORPUSCULAR HEMOGLOBIN 29.9 pg (27.0-31.0); MEAN CORPUSCULAR HGB CONC 33.5 pg (28.0-36.0); MEAN PLATELET VOLUME 9.1 fl; MONOCYTE ABSOLUTE 0.4 Th/cmm (0.3-1.0); NEUTROPHILE ABSOLUTE 4.5 Th/cmm (1.8-8.0); PLATELET COUNT 184 Th/cmm (150-400); RED BLOOD COUNT 3.69 Mil/cmm (3.80-5.20); RED CELL DISTRIBUTION WIDTH 15.8 % (11.5-20.0); WHITE BLOOD COUNT 5.8 Th/cmm (4.8-10.8)
[2017-08-31 05:34] LABS: ANION GAP 10.4 (7.0-16.0); BUN - UREA NITROGEN 12 mg/dL (7-25); CALCIUM SERUM 9.1 mg/dL (8.6-10.3); CARBON DIOXIDE 29.4 mEq/L (21.0-31.0); CHLORIDE 109 mEq/L (98-107); CREATININE - SERUM 0.8 mg/dL (0.6-1.2); GFR AFRICAN-AMERICAN > 60.0 ml/min (>90); GFR NON AFRICAN-AMERICAN > 60.0 ml/min; GLUCOSE 88 mg/dL (70-105); MAGNESIUM 1.7 mg/dL (1.9-2.7); SODIUM SERUM 146 mEq/L (136-145)
[2017-08-31 05:59] LABS: POTASSIUM SERUM 2.8 mEq/L (3.5-5.1)
[2017-08-31] MEDS: INSULIN ASPART SLIDING SCALE 100 UNITS/ML UNIT SUBQ SCH ×4 (06:44→21:01)
[2017-08-31] MEDS ORDERED: Potassium Chloride 40 MEQ, Lidocaine 1% 20mL Vial 25 MG in Sodium Chloride 0.9% 250 ML IV ONE (08:48)
[2017-08-31] MEDS ORDERED: Mag Sulfate 2gm/50mL Premix 2 GM/50 ML BAG IV ONE (08:48)
[2017-08-31] MEDS: Lactobacillus Rhamnosus GG 15 Billion CFU CAP.SPRINK PO SCH (08:54)
[2017-08-31] MEDS: Ammonium Lactate Cream 140 gm Tube TP SCH (08:55)
[2017-08-31] MEDS: KCL 20mEq/100mL Premix 20 MEQ/100 ML PIGGYBACK IV SCH ×2 (11:33→13:34)
--- NOTE | 2017-08-31 12:13 | GI Progress Note ---
Subjective - Review of Systems Service Date: 08/31/17 Events since last encounter: No events Subjective: Does not want to communicate wants to be left alone Objective - Results Result Diagrams: 08/31/17 05:00 08/31/17 05:00 Recent Labs: Laboratory Last Values WBC 5.8 Th/cmm (4.8-10.8) 08/31/17 05:00 RBC 3.69 Mil/cmm (3.80-5.20) L 08/31/17 05:00 Hgb 11.0 gm/dL (12-16) L 08/31/17 05:00 Hct 32.9 % (41.0-60) L 08/31/17 05:00 MCV 89.2 fl (81-100) 08/31/17 05:00 MCH 29.9 pg (27.0-31.0) 08/31/17 05:00 MCHC Differential 33.5 pg (28.0-36.0) 08/31/17 05:00 RDW 15.8 % (11.5-20.0) 08/31/17 05:00 Plt Count 184 Th/cmm (150-400) 08/31/17 05:00 MPV 9.1 fl 08/31/17 05:00 Neutrophils % 77.0 % (40.0-80.0) 08/31/17 05:00 Lymphocytes % 14.9 % (20.0-50.0) L 08/31/17 05:00 Monocytes % 7.4 % (2.0-10.0) 08/31/17 05:00 Eosinophils % 0.6 % (0.0-5.0) 08/31/17 05:00 Basophils % 0.1 % (0.0-2.0) 08/31/17 05:00 Sodium 146 mEq/L (136-145) H 08/31/17 05:00 Potassium 2.8 mEq/L (3.5-5.1) L* 08/31/17 05:00 Chloride 109 mEq/L (98-107) H 08/31/17 05:00 Carbon Dioxide 29.4 mEq/L (21.0-31.0) 08/31/17 05:00 Anion Gap 10.4 (7.0-16.0) 08/31/17 05:00 BUN 12 mg/dL (7-25) 08/31/17 05:00 Creatinine 0.8 mg/dL (0.6-1.2) 08/31/17 05:00 Est GFR ( Amer) > 60.0 ml/min (>90) 08/31/17 05:00 Est GFR (Non-Af Amer) > 60.0 ml/min 08/31/17 05:00 BUN/Creatinine Ratio 15.0 08/31/17 05:00 Glucose 88 mg/dL (70-105) 08/31/17 05:00 POC Glucose 85 MG/DL (70 - 105) 08/31/17 04:52 Calcium 9.1 mg/dL (8.6-10.3) 08/31/17 05:00 Magnesium 1.7 mg/dL (1.9-2.7) L 08/31/17 05:00 Total Bilirubin 0.8 mg/dL (0.3-1.0) 08/25/17 10:24 AST 11 U/L (13-39) L 08/25/17 10:24 ALT 5 U/L (7-52) L 08/25/17 10:24 Alkaline Phosphatase 50 U/L (34-104) 08/25/17 10:24 B-Natriuretic Peptide 86.7 pg/mL (5.0-100.0) 08/31/17 05:00 Total Protein 5.3 gm/dL (6.0-8.3) L 08/25/17 10:24 Albumin 3.0 gm/dL (3.7-5.3) L 08/25/17 10:24 Globulin 2.3 gm/dL 08/25/17 10:24 Albumin/Globulin Ratio 1.3 (1.0-1.8) 08/25/17 10:24 TSH 2.23 uIU/ml (0.34-5.60) 08/27/17 06:05 Urine Source [place] 08/29/17 13:45 Urine Color YELLOW 08/29/17 13:45 Urine Clarity SLIGHTLY HAZY (CLEAR) 08/29/17 13:45 Urine pH 7.5 (4.6 - 8.0) 08/29/17 13:45 Ur Specific [place] 1.010 (1.005-1.030) 08/29/17 13:45 Urine Protein NEGATIVE mg/dL (NEGATIVE) 08/29/17 13:45 Urine Glucose (UA) NEGATIVE mg/dL (NEGATIVE) 08/29/17 13:45 Urine Ketones NEGATIVE mg/dL (NEGATIVE) 08/29/17 13:45 Urine Blood TRACE (NEGATIVE) 08/29/17 13:45 Urine Nitrate NEGATIVE (NEGATIVE) 08/29/17 13:45 Urine Bilirubin NEGATIVE (NEGATIVE) 08/29/17 13:45 Urine Urobilinogen 0.2 E.U./dL (0.2 - 1.0) 08/29/17 13:45 Ur Leukocyte Esterase NEGATIVE (NEGATIVE) 08/29/17 13:45 Urine RBC 0-2 /hpf (0-5) 08/29/17 13:45 Urine WBC 0-2 /hpf (0-5) 08/29/17 13:45 Ur Epithelial Cells OCCASIONAL /lpf (FEW) 08/29/17 13:45 Urine Bacteria FEW /hpf (NONE SEEN) 08/29/17 13:45 - Physical Exam Vitals and I&O: Vital Signs Temp 97.4 F 08/31/17 08:05 Pulse 58 08/31/17 08:05 Resp 18 08/31/17 08:05 BP 111/63 08/31/17 08:05 Pulse Ox 100 08/31/17 08:05 Intake & Output 08/30/17 08/31/17 08/31/17 18:59 06:59 18:59 Intake Total 50 1030 41.25 Output Total 400 200 Balance -350 830 41.25 Weight (lbs) 44.14 kg 43.998 kg Intake: Intake, IV Amount 50 1000 41.25 D5-0.45NS 1,000 ml @ 60 0 1000 mls/hr IV .[id number] [facility] Rx #:[id number] Levofloxacin 250mg/50mL 50 250 mg In 50 ml @ 50 mls/ hr IV Q24H [facility] Rx#: [id number] Magnesium Sulfate 2 gm In 41.25 Sodium Chloride 0.9% 50 ml @ 25 mls/hr IV ONCE ONE Rx#:[id number] Oral 0 30 Output: Urine 400 200 Other: Weight Source Bedscale Bedscale Active Medications: Current Medications Acetaminophen (Tylenol) 650 mg GT Q4HR PRN PRN Reason: Pain or Fever >101 Stop: 10/23/17 19:40 Acetaminophen/Hydrocodone Bitart ([place] 5mg/325mg) 1 tab GT Q4HR PRN PRN Reason: Pain (Moderate) Stop: 10/23/17 19:40 Albuterol Sulfate (Albuterol 2.5mg/3ml Neb Ud) 2.5 mg HHN Q4HRT PRN PRN Reason: Shortness of Breath Stop: 10/23/17 19:40 Bisacodyl (Dulcolax 10 Mg Supp) 10 mg RC DAILY PRN PRN Reason: Constipation Stop: 10/23/17 19:40 Docusate Sodium (Colace) 100 mg GT DAILY PRN PRN Reason: CONSTIPATION Stop: 10/24/17 08:59 Last Admin: 08/27/17 17:38 Dose: 100 mg Heparin Sodium (Porcine) (Heparin) 5,000 units SUBQ Q12HR [facility] Stop: 10/24/17 20:59 Last Admin: 08/31/17 08:58 Dose: Not Given Dextrose/Sodium Chloride (D5-0.45ns) 1,000 mls @ 60 mls/hr IV .[id number] [facility] Stop: 10/26/17 14:14 Last Admin: 08/31/17 05:06 Dose: 60 mls/hr Levofloxacin (Levaquin Pb) 250 mg in 50 mls @ 50 mls/hr IV Q24H [facility] Stop: 10/29/17 14:59 Last Infusion: 08/30/17 17:52 Dose: Infused Insulin Aspart (Novolog Insulin Sliding Scale) 0 units SUBQ ACHS [facility]; Protocol Stop: 10/23/17 20:59 Last Admin: 08/31/17 11:56 Dose: Not Given Ipratropium [place] (Atrovent Neb 0.5mg/2.5ml) 0.5 mg HHN Q4HRT PRN PRN Reason: Shortness of Breath or Wheeze Stop: 10/23/17 19:40 Lactic Acid (Lac-Hydrin Cream) 1 appl TP DAILY [facility] Stop: 10/24/17 08:59 Last Admin: 08/31/17 08:55 Dose: 1 appl Lactobacillus Rhamnosus (Culturelle 15b) 1 each PO DAILY [facility] Stop: 10/29/17 08:59 Last Admin: 08/31/17 08:54 Dose: 1 each Lorazepam (Ativan) 0.5 mg PO Q6HR PRN; Protocol PRN Reason: Agitation Stop: 10/23/17 19:40 Magnesium Hydroxide (Milk Of Magnesia) 30 ml PO HS PRN PRN Reason: Constipation Stop: 10/23/17 19:40 Megestrol Acetate (Megace) 400 mg PO BID [facility] Stop: 10/24/17 08:59 Last Admin: 08/31/17 08:53 Dose: 400 mg Miscellaneous (Vte Chemical Prophylaxis Screen/ Admission) 1 ea MC PRN PRN PRN Reason: PROTOCOL Stop: 10/24/17 09:26 Miscellaneous (Probiotic Screen) 1 ea MC PRN PRN PRN Reason: PROTOCOL Stop: 10/29/17 08:59 Olanzapine (Zyprexa) 5 mg PO HS [facility]; Protocol Stop: 10/23/17 20:59 Last Admin: 08/31/17 05:08 Dose: 5 mg Sodium Phosphate (Fleet Enema) 135 ml RC DAILY PRN PRN Reason: Constipation Stop: 10/23/17 19:40 Zolpidem Tartrate (Ambien) 5 mg PO HS PRN PRN Reason: Insomnia Stop: 10/23/17 19:40 General: Alert, No acute distress Cardiovascular: Regular rate, Normal S1, Normal S2 Lungs: Clear to auscultation Abdomen: Soft - Procedures Procedures: Procedures Procedure Code Date RECREATIONAL THERAPY 93.81 11/09/10 Assessment/Plan - Assessment Assessment: Failure to thrive - Plan Plan: Encourage oral intake and supplements but she is refusing Psych following PEG if consent is availabRemeron if Ok with Psych
--- NOTE | 2017-08-31 12:33 | Internal Medicine Prog Note ---
Internal Medicine Subjective - Subjective Patient seen and examined:: with staff, chart reviewed Patient is:: asleep, eyes closed, in bed, agitated, confused Patient Complaints of:: congestion Per staff patient has:: no adverse event, poor appetite, unstable gait, agitated , combative, refusing care, refusing labs Internal Medicine Objective - Results Result Diagrams: 08/31/17 05:00 08/31/17 05:00 Recent Labs: Laboratory Last Values WBC 5.8 Th/cmm (4.8-10.8) 08/31/17 05:00 RBC 3.69 Mil/cmm (3.80-5.20) L 08/31/17 05:00 Hgb 11.0 gm/dL (12-16) L 08/31/17 05:00 Hct 32.9 % (41.0-60) L 08/31/17 05:00 MCV 89.2 fl (81-100) 08/31/17 05:00 MCH 29.9 pg (27.0-31.0) 08/31/17 05:00 MCHC Differential 33.5 pg (28.0-36.0) 08/31/17 05:00 RDW 15.8 % (11.5-20.0) 08/31/17 05:00 Plt Count 184 Th/cmm (150-400) 08/31/17 05:00 MPV 9.1 fl 08/31/17 05:00 Neutrophils % 77.0 % (40.0-80.0) 08/31/17 05:00 Lymphocytes % 14.9 % (20.0-50.0) L 08/31/17 05:00 Monocytes % 7.4 % (2.0-10.0) 08/31/17 05:00 Eosinophils % 0.6 % (0.0-5.0) 08/31/17 05:00 Basophils % 0.1 % (0.0-2.0) 08/31/17 05:00 Sodium 146 mEq/L (136-145) H 08/31/17 05:00 Potassium 2.8 mEq/L (3.5-5.1) L* 08/31/17 05:00 Chloride 109 mEq/L (98-107) H 08/31/17 05:00 Carbon Dioxide 29.4 mEq/L (21.0-31.0) 08/31/17 05:00 Anion Gap 10.4 (7.0-16.0) 08/31/17 05:00 BUN 12 mg/dL (7-25) 08/31/17 05:00 Creatinine 0.8 mg/dL (0.6-1.2) 08/31/17 05:00 Est GFR ( Amer) > 60.0 ml/min (>90) 08/31/17 05:00 Est GFR (Non-Af Amer) > 60.0 ml/min 08/31/17 05:00 BUN/Creatinine Ratio 15.0 08/31/17 05:00 Glucose 88 mg/dL (70-105) 08/31/17 05:00 POC Glucose 85 MG/DL (70 - 105) 08/31/17 04:52 Calcium 9.1 mg/dL (8.6-10.3) 08/31/17 05:00 Magnesium 1.7 mg/dL (1.9-2.7) L 08/31/17 05:00 Total Bilirubin 0.8 mg/dL (0.3-1.0) 08/25/17 10:24 AST 11 U/L (13-39) L 08/25/17 10:24 ALT 5 U/L (7-52) L 08/25/17 10:24 Alkaline Phosphatase 50 U/L (34-104) 08/25/17 10:24 B-Natriuretic Peptide 86.7 pg/mL (5.0-100.0) 08/31/17 05:00 Total Protein 5.3 gm/dL (6.0-8.3) L 08/25/17 10:24 Albumin 3.0 gm/dL (3.7-5.3) L 08/25/17 10:24 Globulin 2.3 gm/dL 08/25/17 10:24 Albumin/Globulin Ratio 1.3 (1.0-1.8) 08/25/17 10:24 TSH 2.23 uIU/ml (0.34-5.60) 08/27/17 06:05 Urine Source [place] 08/29/17 13:45 Urine Color YELLOW 08/29/17 13:45 Urine Clarity SLIGHTLY HAZY (CLEAR) 08/29/17 13:45 Urine pH 7.5 (4.6 - 8.0) 08/29/17 13:45 Ur Specific [place] 1.010 (1.005-1.030) 08/29/17 13:45 Urine Protein NEGATIVE mg/dL (NEGATIVE) 08/29/17 13:45 Urine Glucose (UA) NEGATIVE mg/dL (NEGATIVE) 08/29/17 13:45 Urine Ketones NEGATIVE mg/dL (NEGATIVE) 08/29/17 13:45 Urine Blood TRACE (NEGATIVE) 08/29/17 13:45 Urine Nitrate NEGATIVE (NEGATIVE) 08/29/17 13:45 Urine Bilirubin NEGATIVE (NEGATIVE) 08/29/17 13:45 Urine Urobilinogen 0.2 E.U./dL (0.2 - 1.0) 08/29/17 13:45 Ur Leukocyte Esterase NEGATIVE (NEGATIVE) 08/29/17 13:45 Urine RBC 0-2 /hpf (0-5) 08/29/17 13:45 Urine WBC 0-2 /hpf (0-5) 08/29/17 13:45 Ur Epithelial Cells OCCASIONAL /lpf (FEW) 08/29/17 13:45 Urine Bacteria FEW /hpf (NONE SEEN) 08/29/17 13:45 - Physical Exam Vitals and I&O: Vital Signs Temp 97.4 F 08/31/17 08:05 Pulse 58 08/31/17 08:05 Resp 18 08/31/17 08:05 BP 111/63 08/31/17 08:05 Pulse Ox 100 08/31/17 08:05 Intake & Output 08/30/17 08/31/17 08/31/17 18:59 06:59 18:59 Intake Total 50 1030 41.25 Output Total 400 200 Balance -350 830 41.25 Weight (lbs) 44.14 kg 43.998 kg Intake: Intake, IV Amount 50 1000 41.25 D5-0.45NS 1,000 ml @ 60 0 1000 mls/hr IV .[id number] [facility] Rx #:[id number] Levofloxacin 250mg/50mL 50 250 mg In 50 ml @ 50 mls/ hr IV Q24H [facility] Rx#: [id number] Magnesium Sulfate 2 gm In 41.25 Sodium Chloride 0.9% 50 ml @ 25 mls/hr IV ONCE ONE Rx#:[id number] Oral 0 30 Output: Urine 400 200 Other: Weight Source Bedscale Bedscale Active Medications: Current Medications Acetaminophen (Tylenol) 650 mg GT Q4HR PRN PRN Reason: Pain or Fever >101 Stop: 10/23/17 19:40 Acetaminophen/Hydrocodone Bitart ([place] 5mg/325mg) 1 tab GT Q4HR PRN PRN Reason: Pain (Moderate) Stop: 10/23/17 19:40 Albuterol Sulfate (Albuterol 2.5mg/3ml Neb Ud) 2.5 mg HHN Q4HRT PRN PRN Reason: Shortness of Breath Stop: 10/23/17 19:40 Bisacodyl (Dulcolax 10 Mg Supp) 10 mg RC DAILY PRN PRN Reason: Constipation Stop: 10/23/17 19:40 Docusate Sodium (Colace) 100 mg GT DAILY PRN PRN Reason: CONSTIPATION Stop: 10/24/17 08:59 Last Admin: 08/27/17 17:38 Dose: 100 mg Heparin Sodium (Porcine) (Heparin) 5,000 units SUBQ Q12HR [facility] Stop: 10/24/17 20:59 Last Admin: 08/31/17 08:58 Dose: Not Given Levofloxacin (Levaquin Pb) 250 mg in 50 mls @ 50 mls/hr IV Q24H [facility] Stop: 10/29/17 14:59 Last Infusion: 08/30/17 17:52 Dose: Infused Potassium Chloride/Dextrose/Sod Cl (D5-0.45ns W/20 Meq Kcl) 1,000 mls @ 75 mls/ hr IV .[id number] [facility] Stop: 10/30/17 12:44 Insulin Aspart (Novolog Insulin Sliding Scale) 0 units SUBQ ACHS [facility]; Protocol Stop: 10/23/17 20:59 Last Admin: 08/31/17 11:56 Dose: Not Given Ipratropium [place] (Atrovent Neb 0.5mg/2.5ml) 0.5 mg HHN Q4HRT PRN PRN Reason: Shortness of Breath or Wheeze Stop: 10/23/17 19:40 Lactic Acid (Lac-Hydrin Cream) 1 appl TP DAILY [facility] Stop: 10/24/17 08:59 Last Admin: 08/31/17 08:55 Dose: 1 appl Lactobacillus Rhamnosus (Culturelle 15b) 1 each PO DAILY [facility] Stop: 10/29/17 08:59 Last Admin: 08/31/17 08:54 Dose: 1 each Lorazepam (Ativan) 0.5 mg PO Q6HR PRN; Protocol PRN Reason: Agitation Stop: 10/23/17 19:40 Magnesium Hydroxide (Milk Of Magnesia) 30 ml PO HS PRN PRN Reason: Constipation Stop: 10/23/17 19:40 Megestrol Acetate (Megace) 400 mg PO BID [facility] Stop: 10/24/17 08:59 Last Admin: 08/31/17 08:53 Dose: 400 mg Mirtazapine (Remeron) 15 mg PO HS [facility]; Protocol Stop: 10/30/17 20:59 Miscellaneous (Vte Chemical Prophylaxis Screen/ Admission) 1 ea PRN PRN PRN Reason: PROTOCOL Stop: 10/24/17 09:26 Miscellaneous (Probiotic Screen) 1 ea PRN PRN PRN Reason: PROTOCOL Stop: 10/29/17 08:59 Olanzapine (Zyprexa) 5 mg PO HS [facility]; Protocol Stop: 10/23/17 20:59 Last Admin: 08/31/17 05:08 Dose: 5 mg Sodium Phosphate (Fleet Enema) 135 ml RC DAILY PRN PRN Reason: Constipation Stop: 10/23/17 19:40 Zolpidem Tartrate (Ambien) 5 mg PO HS PRN PRN Reason: Insomnia Stop: 10/23/17 19:40 General: demented, disheveled, thin, cachectic HEENT: NC/AT, PERRLA Neck: Supple, No JVD, No LAD Lungs: congested, chest deformity present Cardiovascular: RRR, Normal S1, Normal S2, with murmur Abdomen: soft, non-tender, thin, positive bowel sound Extremities: excoriation, contracture, deformity Neurological: disorganized, muscle weakness, unable to follow command - Procedures Procedures: Procedures Procedure Code Date RECREATIONAL THERAPY 93.81 11/09/10 Internal Medicine Assmt/Plan - Assessment Assessment: ASSESSMENT AND PLAN: Failure to thrive, poor p.o. intake, severe protein-caloric malnutrition, diabetes, congestive heart failure, acute on chronic renal insufficiency, schizoaffective disorder, hypertension, hypokalemia, dementia, legally blind, leukocytosis, and bedbound. - Plan Plan: plan We will continue the patient on oxygen and bronchodilator treatments. We will continue with __ivf__. We will perform calorie count. If intake is poor, he may consider alternative means of feeding. We will try to get all the conservative as far as the advance directive, continue with current care with followup consult and recommendations. Psych is following. Nutritional Asmnt/Malnutr-PDOC - Dietary Evaluation Malnutrition Findings (Please click <Entered> for more info): Nutritional Asmnt/Malnutrition Start: 08/25/17 17: 28 Text: Status: Complete Freq: Protocol: Document 08/25/17 17:28 LCHENG (Rec: 08/25/17 17:32 [email or web address]) Nutritional Asmnt/Malnutrition Patient General Information Nutritional Screening High Risk Consult Diagnosis dehydration, FTT Pertinent Medical Hx/Surgical Hx DM, CHF, kidney failure, schizophrenia, HTN, dementia, legally blind, noncompliance Subjective Information Consult received for poor oral intake. Pt seen resting in bed at time of visit. Per nurse note, pt refused breakfast and lunch today. Pt on calorie count noted. Current Diet Order/ Nutrition Support pureed, nectar thin liquid Pertinent Medications D5-0.45ns, colace, novolog, megace Pertinent Labs 7/2 K 3.0, glucose 106 Nutritional Hx/Data Height 1.68 m Height (Calculated Centimeters) 167.6 Current Weight (lbs) 50.349 kg Weight (Calculated Kilograms) 50.3 Weight (Calculated Grams) 42194.8 [place] Body Weight 130 Body Mass Index (BMI) 17.9 Weight Status Underweight GI Symptoms GI Symptoms None Last BM none Skin Integrity/Comment: redness Estimated Nutritional Goals BEE in Kcals: Using Current wt Calories/Kcals/Kg 30-35 Kcals Calculated 8825-9973 Protein: Using Current wt Protein g/k.2 Protein Calculated 60 Fluid: ml 1500-1750ml (1ml/kcal) Nutritional Problem 1. Problem Problem inadequate food intake Etiology pt refusing to eat Signs/Symptoms: PO intake <25% since admission Malnutrition Alert Muscle Mass (Non-Severe) Mild Depletion Is there a minimum of two criteria No selected? Query Text:Check all the applicable criteria. A minimum of two criteria are recommended for diagnosis of either severe or non-severe malnutrition. Malnutrition Related to Morbid Obesity Malnutrition related to morbid obesity No Intervention/Recommendation Comments 1. Continue with current diet as ordered. Assist pt with meals and encourage oral intake. 2. Monitor PO intake, wt, labs and skin integrity 3. F/U as high risk in 2-3 days, 08/27-08/28 Expected Outcomes/Goals Expected Outcomes/Goals 1. PO intake to meet at least 75% of nutritional needs. 2. Wt stability, skin to remain intact, labs to approach WNL.
[2017-08-31] MEDS: D5-0.45NS w/20 mEq KCL 1,000 ML IV SCH (13:34)
[2017-08-31] MEDS: Levofloxacin 250mg/50mL 250 MG/50 ML BAG IV SCH (16:17)
[2017-09-01] MEDS: D5-0.45NS w/20 mEq KCL 1,000 ML IV SCH (05:38)
[2017-09-01 06:07] LABS: ANION GAP 8.8 (7.0-16.0); BUN - UREA NITROGEN 10 mg/dL (7-25); CARBON DIOXIDE 28.8 mEq/L (21.0-31.0); CHLORIDE 109 mEq/L (98-107); CREATININE - SERUM 0.8 mg/dL (0.6-1.2); GFR AFRICAN-AMERICAN > 60.0 ml/min (>90); GFR NON AFRICAN-AMERICAN > 60.0 ml/min; GLUCOSE 118 mg/dL (70-105); MAGNESIUM 2.2 mg/dL (1.9-2.7); POTASSIUM SERUM 3.6 mEq/L (3.5-5.1); SODIUM SERUM 143 mEq/L (136-145)
[2017-09-01] MEDS: INSULIN ASPART SLIDING SCALE 100 UNITS/ML UNIT SUBQ SCH ×3 (06:38→16:59)
[2017-09-01] MEDS: Ammonium Lactate Cream 140 gm Tube TP SCH (09:00)
[2017-09-01] MEDS: Lactobacillus Rhamnosus GG 15 Billion CFU CAP.SPRINK PO SCH (09:30)
[2017-09-01 11:38] LABS: % BASOPHILS 0.3 % (0.0-2.0); % EOSINOPHILS 0.5 % (0.0-5.0); % LYMPHOCYTES 17.6 % (20.0-50.0); % NEUTROPHILS 76.6 % (40.0-80.0); HEMATOCRIT 35.4 % (41.0-60); HEMOGLOBIN 11.7 gm/dL (12-16); LYMPHOCYTE ABSOLUTE 0.8 Th/cmm (1.5-3.0); MEAN CELL VOLUME 89.7 fl (81-100); MEAN CORPUSCULAR HEMOGLOBIN 29.7 pg (27.0-31.0); MEAN CORPUSCULAR HGB CONC 33.1 pg (28.0-36.0); MEAN PLATELET VOLUME 9.9 fl; MONOCYTE ABSOLUTE 0.2 Th/cmm (0.3-1.0); NEUTROPHILE ABSOLUTE 3.7 Th/cmm (1.8-8.0); PLATELET COUNT 195 Th/cmm (150-400); RED BLOOD COUNT 3.94 Mil/cmm (3.80-5.20); RED CELL DISTRIBUTION WIDTH 16.2 % (11.5-20.0); WHITE BLOOD COUNT 4.7 Th/cmm (4.8-10.8)
--- NOTE | 2017-09-01 11:52 | Internal Medicine Prog Note ---
Internal Medicine Subjective - Subjective Service Date: 09/01/17 Patient seen and examined:: with staff Patient is:: awake, eyes closed, in bed, confused Per staff patient has:: no adverse event, poor appetite, unstable gait, agitated , combative, refusing care, refusing labs Internal Medicine Objective - Results Result Diagrams: 09/01/17 05:40 09/01/17 05:40 Recent Labs: Laboratory Last Values WBC 4.7 Th/cmm (4.8-10.8) L 09/01/17 05:40 RBC 3.94 Mil/cmm (3.80-5.20) 09/01/17 05:40 Hgb 11.7 gm/dL (12-16) L 09/01/17 05:40 Hct 35.4 % (41.0-60) L 09/01/17 05:40 MCV 89.7 fl (81-100) 09/01/17 05:40 MCH 29.7 pg (27.0-31.0) 09/01/17 05:40 MCHC Differential 33.1 pg (28.0-36.0) 09/01/17 05:40 RDW 16.2 % (11.5-20.0) 09/01/17 05:40 Plt Count 195 Th/cmm (150-400) 09/01/17 05:40 MPV 9.9 fl 09/01/17 05:40 Neutrophils % 76.6 % (40.0-80.0) 09/01/17 05:40 Lymphocytes % 17.6 % (20.0-50.0) L 09/01/17 05:40 Monocytes % 5.0 % (2.0-10.0) 09/01/17 05:40 Eosinophils % 0.5 % (0.0-5.0) 09/01/17 05:40 Basophils % 0.3 % (0.0-2.0) 09/01/17 05:40 Sodium 143 mEq/L (136-145) 09/01/17 05:40 Potassium 3.6 mEq/L (3.5-5.1) 09/01/17 05:40 Chloride 109 mEq/L (98-107) H 09/01/17 05:40 Carbon Dioxide 28.8 mEq/L (21.0-31.0) 09/01/17 05:40 Anion Gap 8.8 (7.0-16.0) 09/01/17 05:40 BUN 10 mg/dL (7-25) 09/01/17 05:40 Creatinine 0.8 mg/dL (0.6-1.2) 09/01/17 05:40 Est GFR ( Amer) > 60.0 ml/min (>90) 09/01/17 05:40 Est GFR (Non-Af Amer) > 60.0 ml/min 09/01/17 05:40 BUN/Creatinine Ratio 12.5 09/01/17 05:40 Glucose 118 mg/dL (70-105) H 09/01/17 05:40 POC Glucose 101 MG/DL (70 - 105) 09/01/17 05:19 Calcium 9.0 mg/dL (8.6-10.3) 09/01/17 05:40 Magnesium 2.2 mg/dL (1.9-2.7) 09/01/17 05:40 Total Bilirubin 0.8 mg/dL (0.3-1.0) 08/25/17 10:24 AST 11 U/L (13-39) L 08/25/17 10:24 ALT 5 U/L (7-52) L 08/25/17 10:24 Alkaline Phosphatase 50 U/L (34-104) 08/25/17 10:24 Ammonia 43 umol/L (16-53) 09/01/17 05:40 B-Natriuretic Peptide 86.7 pg/mL (5.0-100.0) 08/31/17 05:00 Total Protein 5.3 gm/dL (6.0-8.3) L 08/25/17 10:24 Albumin 3.0 gm/dL (3.7-5.3) L 08/25/17 10:24 Globulin 2.3 gm/dL 08/25/17 10:24 Albumin/Globulin Ratio 1.3 (1.0-1.8) 08/25/17 10:24 TSH 2.23 uIU/ml (0.34-5.60) 08/27/17 06:05 Urine Source [place] 08/29/17 13:45 Urine Color YELLOW 08/29/17 13:45 Urine Clarity SLIGHTLY [place]ZY (CLEAR) 08/29/17 13:45 Urine pH 7.5 (4.6 - 8.0) 08/29/17 13:45 Ur Specific [place] 1.010 (1.005-1.030) 08/29/17 13:45 Urine Protein NEGATIVE mg/dL (NEGATIVE) 08/29/17 13:45 Urine Glucose (UA) NEGATIVE mg/dL (NEGATIVE) 08/29/17 13:45 Urine Ketones NEGATIVE mg/dL (NEGATIVE) 08/29/17 13:45 Urine Blood TRACE (NEGATIVE) 08/29/17 13:45 Urine Nitrate NEGATIVE (NEGATIVE) 08/29/17 13:45 Urine Bilirubin NEGATIVE (NEGATIVE) 08/29/17 13:45 Urine Urobilinogen 0.2 E.U./dL (0.2 - 1.0) 08/29/17 13:45 Ur Leukocyte Esterase NEGATIVE (NEGATIVE) 08/29/17 13:45 Urine RBC 0-2 /hpf (0-5) 08/29/17 13:45 Urine WBC 0-2 /hpf (0-5) 08/29/17 13:45 Ur Epithelial Cells OCCASIONAL /lpf (FEW) 08/29/17 13:45 Urine Bacteria FEW /hpf (NONE SEEN) 08/29/17 13:45 - Physical Exam Vitals and I&O: Vital Signs Temp 96.7 F 09/01/17 07:56 Pulse 88 09/01/17 07:56 Resp 18 09/01/17 07:56 BP 107/60 09/01/17 07:56 Pulse Ox 99 09/01/17 07:56 Intake & Output 08/31/17 09/01/17 09/01/17 18:59 06:59 18:59 Intake Total 274.00 1015 Output Total 500 250 Balance -226.00 765 Weight (lbs) 97 lb 97 lb Intake: Intake, IV Amount 254.00 1000 D5-0.45NS w/20 mEq KCL 1, 1000 000 ml @ 75 mls/hr IV . [id number] [facility] Rx#:[id number] KCL 20mEq/100mL Premix 20 100 meq In 100 ml @ 50 mls/ hr IV Q2H [facility] Rx#: [id number] Magnesium Sulfate 2 gm In 54.00 Sodium Chloride 0.9% 50 ml @ 25 mls/hr IV ONCE ONE Rx#:[id number] Oral 20 15 Output: Urine 500 250 Other: # Bowel Movements 0 Weight Source Bedscale Bedscale Active Medications: Current Medications Acetaminophen (Tylenol) 650 mg GT Q4HR PRN PRN Reason: Pain or Fever >101 Stop: 10/23/17 19:40 Acetaminophen/Hydrocodone Bitart ([place] 5mg/325mg) 1 tab GT Q4HR PRN PRN Reason: Pain (Moderate) Stop: 10/23/17 19:40 Albuterol Sulfate (Albuterol 2.5mg/3ml Neb Ud) 2.5 mg HHN Q4HRT PRN PRN Reason: Shortness of Breath Stop: 10/23/17 19:40 Bisacodyl (Dulcolax 10 Mg Supp) 10 mg RC DAILY PRN PRN Reason: Constipation Stop: 10/23/17 19:40 Docusate Sodium (Colace) 100 mg GT DAILY PRN PRN Reason: CONSTIPATION Stop: 10/24/17 08:59 Last Admin: 08/27/17 17:38 Dose: 100 mg Heparin Sodium (Porcine) (Heparin) 5,000 units SUBQ Q12HR [facility] Stop: 10/24/17 20:59 Last Admin: 09/01/17 09:00 Dose: Not Given Levofloxacin (Levaquin Pb) 250 mg in 50 mls @ 50 mls/hr IV Q24H [facility] Stop: 10/29/17 14:59 Last Admin: 08/31/17 16:17 Dose: 50 mls/hr Potassium Chloride/Dextrose/Sod Cl (D5-0.45ns W/20 Meq Kcl) 1,000 mls @ 75 mls/ hr IV .[id number] [facility] Stop: 10/30/17 12:44 Last Admin: 09/01/17 05:38 Dose: 75 mls/hr Insulin Aspart (Novolog Insulin Sliding Scale) 0 units SUBQ ACHS [facility]; Protocol Stop: 10/23/17 20:59 Last Admin: 09/01/17 06:38 Dose: Not Given Ipratropium [place] (Atrovent Neb 0.5mg/2.5ml) 0.5 mg HHN Q4HRT PRN PRN Reason: Shortness of Breath or Wheeze Stop: 10/23/17 19:40 Lactic Acid (Lac-Hydrin Cream) 1 appl TP DAILY [facility] Stop: 10/24/17 08:59 Last Admin: 08/31/17 08:55 Dose: 1 appl Lactobacillus Rhamnosus (Culturelle 15b) 1 each PO DAILY [facility] Stop: 10/29/17 08:59 Last Admin: 08/31/17 08:54 Dose: 1 each Lorazepam (Ativan) 0.5 mg PO Q6HR PRN; Protocol PRN Reason: Agitation Stop: 10/23/17 19:40 Magnesium Hydroxide (Milk Of Magnesia) 30 ml PO HS PRN PRN Reason: Constipation Stop: 10/23/17 19:40 Megestrol Acetate (Megace) 400 mg PO BID [facility] Stop: 10/24/17 08:59 Last Admin: 08/31/17 16:48 Dose: Not Given Mirtazapine (Remeron) 15 mg PO HS [facility]; Protocol Stop: 10/30/17 20:59 Last Admin: 08/31/17 21:14 Dose: Not Given Miscellaneous (Vte Chemical Prophylaxis Screen/ Admission) 1 ea PRN PRN PRN Reason: PROTOCOL Stop: 10/24/17 09:26 Miscellaneous (Probiotic Screen) 1 ea PRN PRN PRN Reason: PROTOCOL Stop: 10/29/17 08:59 Olanzapine (Zyprexa) 5 mg PO HS [facility]; Protocol Stop: 10/23/17 20:59 Last Admin: 08/31/17 21:15 Dose: Not Given Sodium Phosphate (Fleet Enema) 135 ml RC DAILY PRN PRN Reason: Constipation Stop: 10/23/17 19:40 Zolpidem Tartrate (Ambien) 5 mg PO HS PRN PRN Reason: Insomnia Stop: 10/23/17 19:40 General: demented, disheveled, thin, cachectic HEENT: NC/AT, PERRLA Neck: Supple, No JVD, No LAD Lungs: congested, chest deformity present Cardiovascular: RRR, Normal S1, Normal S2, with murmur Abdomen: soft, non-tender, thin, positive bowel sound Extremities: excoriation, contracture, deformity Neurological: disorganized, muscle weakness, unable to follow command - Procedures Procedures: Procedures Procedure Code Date RECREATIONAL THERAPY 93.81 11/09/10 Internal Medicine Assmt/Plan - Assessment Assessment: Failure to thrive poor p.o. intake severe protein-caloric malnutrition diabetes congestive heart failure acute on chronic renal insufficiency schizoaffective disorder hypertension hypokalemia dementia legally blind leukocytosis bedbound. noncompliant - Plan Plan: ivf for hydration monitor electrolytes continue current plan of care Nutritional Asmnt/Malnutr-PDOC - Dietary Evaluation Malnutrition Findings (Please click <Entered> for more info): Nutritional Asmnt/Malnutrition Start: 08/25/17 17: 28 Text: Status: Complete Freq: Protocol: Document 08/25/17 17:28 [email or web address] (Rec: 08/25/17 17:32 HEN [email or web address]) Nutritional Asmnt/Malnutrition Patient General Information Nutritional Screening High Risk Consult Diagnosis dehydration, FTT Pertinent Medical Hx/Surgical Hx DM, CHF, kidney failure, schizophrenia, HTN, dementia, legally blind, noncompliance Subjective Information Consult received for poor oral intake. Pt seen resting in bed at time of visit. Per nurse note, pt refused breakfast and lunch today. Pt on calorie count noted. Current Diet Order/ Nutrition Support pureed, nectar thin liquid Pertinent Medications D5-0.45ns, colace, novolog, megace Pertinent Labs 7/2 K 3.0, glucose 106 Nutritional Hx/Data Height 5 ft 6 in Height (Calculated Centimeters) 167.6 Current Weight (lbs) 111 lb Weight (Calculated Kilograms) 50.3 Weight (Calculated Grams) 44718.8 [place] Body Weight 130 Body Mass Index (BMI) 17.9 Weight Status Underweight GI Symptoms GI Symptoms None Last BM none Skin Integrity/Comment: redness Estimated Nutritional Goals BEE in Kcals: Using Current wt Calories/Kcals/Kg 30-35 Kcals Calculated 4266-6310 Protein: Using Current wt Protein g/k.2 Protein Calculated 60 Fluid: ml 1500-1750ml (1ml/kcal) Nutritional Problem 1. Problem Problem inadequate food intake Etiology pt refusing to eat Signs/Symptoms: PO intake <25% since admission Malnutrition Alert Muscle Mass (Non-Severe) Mild Depletion Is there a minimum of two criteria No selected? Query Text:Check all the applicable criteria. A minimum of two criteria are recommended for diagnosis of either severe or non-severe malnutrition. Malnutrition Related to Morbid Obesity Malnutrition related to morbid obesity No Intervention/Recommendation Comments 1. Continue with current diet as ordered. Assist pt with meals and encourage oral intake. 2. Monitor PO intake, wt, labs and skin integrity 3. F/U as high risk in 2-3 days, 08/27-08/28 Expected Outcomes/Goals Expected Outcomes/Goals 1. PO intake to meet at least 75% of nutritional needs. 2. Wt stability, skin to remain intact, labs to approach WNL.
--- NOTE | 2017-09-01 13:56 | GI Progress Note ---
Subjective - Review of Systems Subjective: NO EVENTS Objective - Results Result Diagrams: 09/01/17 05:40 09/01/17 05:40 Recent Labs: Laboratory Last Values WBC 4.7 Th/cmm (4.8-10.8) L 09/01/17 05:40 RBC 3.94 Mil/cmm (3.80-5.20) 09/01/17 05:40 Hgb 11.7 gm/dL (12-16) L 09/01/17 05:40 Hct 35.4 % (41.0-60) L 09/01/17 05:40 MCV 89.7 fl (81-100) 09/01/17 05:40 MCH 29.7 pg (27.0-31.0) 09/01/17 05:40 MCHC Differential 33.1 pg (28.0-36.0) 09/01/17 05:40 RDW 16.2 % (11.5-20.0) 09/01/17 05:40 Plt Count 195 Th/cmm (150-400) 09/01/17 05:40 MPV 9.9 fl 09/01/17 05:40 Neutrophils % 76.6 % (40.0-80.0) 09/01/17 05:40 Lymphocytes % 17.6 % (20.0-50.0) L 09/01/17 05:40 Monocytes % 5.0 % (2.0-10.0) 09/01/17 05:40 Eosinophils % 0.5 % (0.0-5.0) 09/01/17 05:40 Basophils % 0.3 % (0.0-2.0) 09/01/17 05:40 Sodium 143 mEq/L (136-145) 09/01/17 05:40 Potassium 3.6 mEq/L (3.5-5.1) 09/01/17 05:40 Chloride 109 mEq/L (98-107) H 09/01/17 05:40 Carbon Dioxide 28.8 mEq/L (21.0-31.0) 09/01/17 05:40 Anion Gap 8.8 (7.0-16.0) 09/01/17 05:40 BUN 10 mg/dL (7-25) 09/01/17 05:40 Creatinine 0.8 mg/dL (0.6-1.2) 09/01/17 05:40 Est GFR ( Amer) > 60.0 ml/min (>90) 09/01/17 05:40 Est GFR (Non-Af Amer) > 60.0 ml/min 09/01/17 05:40 BUN/Creatinine Ratio 12.5 09/01/17 05:40 Glucose 118 mg/dL (70-105) H 09/01/17 05:40 POC Glucose 101 MG/DL (70 - 105) 09/01/17 05:19 Calcium 9.0 mg/dL (8.6-10.3) 09/01/17 05:40 Magnesium 2.2 mg/dL (1.9-2.7) 09/01/17 05:40 Total Bilirubin 0.8 mg/dL (0.3-1.0) 08/25/17 10:24 AST 11 U/L (13-39) L 08/25/17 10:24 ALT 5 U/L (7-52) L 08/25/17 10:24 Alkaline Phosphatase 50 U/L (34-104) 08/25/17 10:24 Ammonia 43 umol/L (16-53) 09/01/17 05:40 B-Natriuretic Peptide 86.7 pg/mL (5.0-100.0) 08/31/17 05:00 Total Protein 5.3 gm/dL (6.0-8.3) L 08/25/17 10:24 Albumin 3.0 gm/dL (3.7-5.3) L 08/25/17 10:24 Globulin 2.3 gm/dL 08/25/17 10:24 Albumin/Globulin Ratio 1.3 (1.0-1.8) 08/25/17 10:24 TSH 1.63 uIU/ml (0.34-5.60) 09/01/17 05:40 Urine Source [place] 08/29/17 13:45 Urine Color YELLOW 08/29/17 13:45 Urine Clarity SLIGHTLY HAZY (CLEAR) 08/29/17 13:45 Urine pH 7.5 (4.6 - 8.0) 08/29/17 13:45 Ur Specific [place] 1.010 (1.005-1.030) 08/29/17 13:45 Urine Protein NEGATIVE mg/dL (NEGATIVE) 08/29/17 13:45 Urine Glucose (UA) NEGATIVE mg/dL (NEGATIVE) 08/29/17 13:45 Urine Ketones NEGATIVE mg/dL (NEGATIVE) 08/29/17 13:45 Urine Blood TRACE (NEGATIVE) 08/29/17 13:45 Urine Nitrate NEGATIVE (NEGATIVE) 08/29/17 13:45 Urine Bilirubin NEGATIVE (NEGATIVE) 08/29/17 13:45 Urine Urobilinogen 0.2 E.U./dL (0.2 - 1.0) 08/29/17 13:45 Ur Leukocyte Esterase NEGATIVE (NEGATIVE) 08/29/17 13:45 Urine RBC 0-2 /hpf (0-5) 08/29/17 13:45 Urine WBC 0-2 /hpf (0-5) 08/29/17 13:45 Ur Epithelial Cells OCCASIONAL /lpf (FEW) 08/29/17 13:45 Urine Bacteria FEW /hpf (NONE SEEN) 08/29/17 13:45 - Physical Exam Vitals and I&O: Vital Signs Temp 96.9 F 09/01/17 11:57 Pulse 80 09/01/17 11:57 Resp 18 09/01/17 11:57 BP 110/73 09/01/17 11:57 Pulse Ox 98 09/01/17 11:57 Intake & Output 08/31/17 09/01/17 09/01/17 18:59 06:59 18:59 Intake Total 274.00 1015 Output Total 500 250 Balance -226.00 765 Weight (lbs) 43.998 kg 43.998 kg Intake: Intake, IV Amount 254.00 1000 D5-0.45NS w/20 mEq KCL 1, 1000 000 ml @ 75 mls/hr IV . [id number] [facility] Rx#:[id number] KCL 20mEq/100mL Premix 20 100 meq In 100 ml @ 50 mls/ hr IV Q2H [facility] Rx#: [id number] Magnesium Sulfate 2 gm In 54.00 Sodium Chloride 0.9% 50 ml @ 25 mls/hr IV ONCE ONE Rx#:[id number] Oral 20 15 Output: Urine 500 250 Other: # Bowel Movements 0 Weight Source Bedscale Bedscale Active Medications: Current Medications Acetaminophen (Tylenol) 650 mg GT Q4HR PRN PRN Reason: Pain or Fever >101 Stop: 10/23/17 19:40 Acetaminophen/Hydrocodone Bitart ([place] 5mg/325mg) 1 tab GT Q4HR PRN PRN Reason: Pain (Moderate) Stop: 10/23/17 19:40 Albuterol Sulfate (Albuterol 2.5mg/3ml Neb Ud) 2.5 mg HHN Q4HRT PRN PRN Reason: Shortness of Breath Stop: 10/23/17 19:40 Bisacodyl (Dulcolax 10 Mg Supp) 10 mg RC DAILY PRN PRN Reason: Constipation Stop: 10/23/17 19:40 Docusate Sodium (Colace) 100 mg GT DAILY PRN PRN Reason: CONSTIPATION Stop: 10/24/17 08:59 Last Admin: 08/27/17 17:38 Dose: 100 mg Heparin Sodium (Porcine) (Heparin) 5,000 units SUBQ Q12HR [facility] Stop: 10/24/17 20:59 Last Admin: 09/01/17 09:00 Dose: Not Given Levofloxacin (Levaquin Pb) 250 mg in 50 mls @ 50 mls/hr IV Q24H [facility] Stop: 10/29/17 14:59 Last Admin: 08/31/17 16:17 Dose: 50 mls/hr Potassium Chloride/Dextrose/Sod Cl (D5-0.45ns W/20 Meq Kcl) 1,000 mls @ 75 mls/ hr IV .[id number] [facility] Stop: 10/30/17 12:44 Last Admin: 09/01/17 05:38 Dose: 75 mls/hr Insulin Aspart (Novolog Insulin Sliding Scale) 0 units SUBQ ACHS [facility]; Protocol Stop: 10/23/17 20:59 Last Admin: 09/01/17 06:38 Dose: Not Given Ipratropium [place] (Atrovent Neb 0.5mg/2.5ml) 0.5 mg HHN Q4HRT PRN PRN Reason: Shortness of Breath or Wheeze Stop: 10/23/17 19:40 Lactic Acid (Lac-Hydrin Cream) 1 appl TP DAILY [facility] Stop: 10/24/17 08:59 Last Admin: 08/31/17 08:55 Dose: 1 appl Lactobacillus Rhamnosus (Culturelle 15b) 1 each PO DAILY [facility] Stop: 10/29/17 08:59 Last Admin: 08/31/17 08:54 Dose: 1 each Lorazepam (Ativan) 0.5 mg PO Q6HR PRN; Protocol PRN Reason: Agitation Stop: 10/23/17 19:40 Magnesium Hydroxide (Milk Of Magnesia) 30 ml PO HS PRN PRN Reason: Constipation Stop: 10/23/17 19:40 Megestrol Acetate (Megace) 400 mg PO BID FOZIA Stop: 10/24/17 08:59 Last Admin: 08/31/17 16:48 Dose: Not Given Mirtazapine (Remeron) 15 mg PO HS FOZIA; Protocol Stop: 10/30/17 20:59 Last Admin: 08/31/17 21:14 Dose: Not Given Miscellaneous (Vte Chemical Prophylaxis Screen/ Admission) 1 ea MC PRN PRN PRN Reason: PROTOCOL Stop: 10/24/17 09:26 Miscellaneous (Probiotic Screen) 1 ea MC PRN PRN PRN Reason: PROTOCOL Stop: 10/29/17 08:59 Olanzapine (Zyprexa) 5 mg PO HS FOZIA; Protocol Stop: 10/23/17 20:59 Last Admin: 08/31/17 21:15 Dose: Not Given Sodium Phosphate (Fleet Enema) 135 ml RC DAILY PRN PRN Reason: Constipation Stop: 10/23/17 19:40 Zolpidem Tartrate (Ambien) 5 mg PO HS PRN PRN Reason: Insomnia Stop: 10/23/17 19:40 General: Alert, No acute distress Cardiovascular: Regular rate, Normal S1, Normal S2 Lungs: Clear to auscultation Abdomen: Soft - Procedures Procedures: Procedures Procedure Code Date RECREATIONAL THERAPY 93.81 11/09/10 Assessment/Plan - Assessment Assessment: 67 YO FEMALE WITH ANOREXIA AND DYSPHAGIA REFUSING PEG 1.CONT ENCOURAGE PO DIET 2.PEG CAN BE DONE IF NEEDED AND IF CONSENT IS GIVEN 3.D/W DR CADENA PREVIOUSLY 4.WILL SEE NEEDED; CALL IF QUESTIONS OR WHEN READY FOR PEG
[2017-09-01] MEDS: Levofloxacin 250mg/50mL 250 MG/50 ML BAG IV SCH (16:58)
[2017-09-02] MEDS: INSULIN ASPART SLIDING SCALE 100 UNITS/ML UNIT SUBQ SCH ×5 (00:14→21:48)
[2017-09-02] MEDS: D5-0.45NS w/20 mEq KCL 1,000 ML IV SCH ×3 (00:16→17:29)
[2017-09-02 06:36] LABS: ANION GAP 4.9 (7.0-16.0); BUN - UREA NITROGEN 9 mg/dL (7-25); CALCIUM SERUM 8.9 mg/dL (8.6-10.3); CARBON DIOXIDE 29.2 mEq/L (21.0-31.0); CHLORIDE 112 mEq/L (98-107); CREATININE - SERUM 0.7 mg/dL (0.6-1.2); GFR AFRICAN-AMERICAN > 60.0 ml/min (>90); GFR NON AFRICAN-AMERICAN > 60.0 ml/min; GLUCOSE 102 mg/dL (70-105); POTASSIUM SERUM 4.1 mEq/L (3.5-5.1); SODIUM SERUM 142 mEq/L (136-145)
[2017-09-02 06:54] LABS: % BASOPHILS 0.3 % (0.0-2.0); % EOSINOPHILS 0.5 % (0.0-5.0); % LYMPHOCYTES 18.1 % (20.0-50.0); % MONOCYTES 6.3 % (2.0-10.0); % NEUTROPHILS 74.8 % (40.0-80.0); HEMATOCRIT 33.3 % (41.0-60); HEMOGLOBIN 11.2 gm/dL (12-16); LYMPHOCYTE ABSOLUTE 0.8 Th/cmm (1.5-3.0); MEAN CELL VOLUME 89.1 fl (81-100); MEAN CORPUSCULAR HEMOGLOBIN 29.8 pg (27.0-31.0); MEAN CORPUSCULAR HGB CONC 33.5 pg (28.0-36.0); MEAN PLATELET VOLUME 10.5 fl; MONOCYTE ABSOLUTE 0.3 Th/cmm (0.3-1.0); NEUTROPHILE ABSOLUTE 3.5 Th/cmm (1.8-8.0); PLATELET COUNT 146 Th/cmm (150-400); RED BLOOD COUNT 3.74 Mil/cmm (3.80-5.20); RED CELL DISTRIBUTION WIDTH 15.9 % (11.5-20.0); WHITE BLOOD COUNT 4.6 Th/cmm (4.8-10.8)
[2017-09-02] MEDS: Ammonium Lactate Cream 140 gm Tube TP SCH (08:51)
[2017-09-02] MEDS: Lactobacillus Rhamnosus GG 15 Billion CFU CAP.SPRINK PO SCH (08:51)
--- NOTE | 2017-09-02 11:51 | Internal Medicine Prog Note ---
Internal Medicine Subjective - Subjective Service Date: 09/02/17 (patient still refuses to eat, will need to call conservator for peg placement) Patient is:: awake, eyes closed, in bed, confused Patient Complaints of:: congestion Per staff patient has:: no adverse event, poor appetite, unstable gait, agitated , combative, refusing care, refusing labs Internal Medicine Objective - Results Result Diagrams: 09/02/17 05:45 09/02/17 05:45 Recent Labs: Laboratory Last Values WBC 4.6 Th/cmm (4.8-10.8) L 09/02/17 05:45 RBC 3.74 Mil/cmm (3.80-5.20) L 09/02/17 05:45 Hgb 11.2 gm/dL (12-16) L 09/02/17 05:45 Hct 33.3 % (41.0-60) L 09/02/17 05:45 MCV 89.1 fl (81-100) 09/02/17 05:45 MCH 29.8 pg (27.0-31.0) 09/02/17 05:45 MCHC Differential 33.5 pg (28.0-36.0) 09/02/17 05:45 RDW 15.9 % (11.5-20.0) 09/02/17 05:45 Plt Count 146 Th/cmm (150-400) L 09/02/17 05:45 MPV 10.5 fl 09/02/17 05:45 Neutrophils % 74.8 % (40.0-80.0) 09/02/17 05:45 Lymphocytes % 18.1 % (20.0-50.0) L 09/02/17 05:45 Monocytes % 6.3 % (2.0-10.0) 09/02/17 05:45 Eosinophils % 0.5 % (0.0-5.0) 09/02/17 05:45 Basophils % 0.3 % (0.0-2.0) 09/02/17 05:45 Sodium 142 mEq/L (136-145) 09/02/17 05:45 Potassium 4.1 mEq/L (3.5-5.1) 09/02/17 05:45 Chloride 112 mEq/L (98-107) H 09/02/17 05:45 Carbon Dioxide 29.2 mEq/L (21.0-31.0) 09/02/17 05:45 Anion Gap 4.9 (7.0-16.0) L 09/02/17 05:45 BUN 9 mg/dL (7-25) 09/02/17 05:45 Creatinine 0.7 mg/dL (0.6-1.2) 09/02/17 05:45 Est GFR ( Amer) > 60.0 ml/min (>90) 09/02/17 05:45 Est GFR (Non-Af Amer) > 60.0 ml/min 09/02/17 05:45 BUN/Creatinine Ratio 12.9 09/02/17 05:45 Glucose 102 mg/dL (70-105) 09/02/17 05:45 POC Glucose 101 MG/DL (70 - 105) 09/01/17 05:19 Calcium 8.9 mg/dL (8.6-10.3) 09/02/17 05:45 Magnesium 2.2 mg/dL (1.9-2.7) 09/01/17 05:40 Total Bilirubin 0.8 mg/dL (0.3-1.0) 08/25/17 10:24 AST 11 U/L (13-39) L 08/25/17 10:24 ALT 5 U/L (7-52) L 08/25/17 10:24 Alkaline Phosphatase 50 U/L (34-104) 08/25/17 10:24 Ammonia 43 umol/L (16-53) 09/01/17 05:40 B-Natriuretic Peptide 86.7 pg/mL (5.0-100.0) 08/31/17 05:00 Total Protein 5.3 gm/dL (6.0-8.3) L 08/25/17 10:24 Albumin 3.0 gm/dL (3.7-5.3) L 08/25/17 10:24 Globulin 2.3 gm/dL 08/25/17 10:24 Albumin/Globulin Ratio 1.3 (1.0-1.8) 08/25/17 10:24 TSH 1.63 uIU/ml (0.34-5.60) 09/01/17 05:40 Urine Source [place] 08/29/17 13:45 Urine Color YELLOW 08/29/17 13:45 Urine Clarity SLIGHTLY HAZY (CLEAR) 08/29/17 13:45 Urine pH 7.5 (4.6 - 8.0) 08/29/17 13:45 Ur Specific [place] 1.010 (1.005-1.030) 08/29/17 13:45 Urine Protein NEGATIVE mg/dL (NEGATIVE) 08/29/17 13:45 Urine Glucose (UA) NEGATIVE mg/dL (NEGATIVE) 08/29/17 13:45 Urine Ketones NEGATIVE mg/dL (NEGATIVE) 08/29/17 13:45 Urine Blood TRACE (NEGATIVE) 08/29/17 13:45 Urine Nitrate NEGATIVE (NEGATIVE) 08/29/17 13:45 Urine Bilirubin NEGATIVE (NEGATIVE) 08/29/17 13:45 Urine Urobilinogen 0.2 E.U./dL (0.2 - 1.0) 08/29/17 13:45 Ur Leukocyte Esterase NEGATIVE (NEGATIVE) 08/29/17 13:45 Urine RBC 0-2 /hpf (0-5) 08/29/17 13:45 Urine WBC 0-2 /hpf (0-5) 08/29/17 13:45 Ur Epithelial Cells OCCASIONAL /lpf (FEW) 08/29/17 13:45 Urine Bacteria FEW /hpf (NONE SEEN) 08/29/17 13:45 - Physical Exam Vitals and I&O: Vital Signs Temp 97.5 F 09/02/17 07:55 Pulse 53 09/02/17 07:55 Resp 18 09/02/17 08:00 BP 123/77 09/02/17 07:55 Pulse Ox 99 09/02/17 07:55 Intake & Output 09/01/17 09/02/17 09/02/17 18:59 06:59 18:59 Intake Total 1457.5 Output Total 1000 Balance 457.5 Weight (lbs) 97 lb Intake: Intake, IV Amount 1457.5 D5-0.45NS w/20 mEq KCL 1, 1457.5 000 ml @ 75 mls/hr IV . [id number] ON [facility] Rx#:[id number] Oral 0 Output: Urine 1000 Other: Weight Source Bedscale Active Medications: Current Medications Acetaminophen (Tylenol) 650 mg GT Q4HR PRN PRN Reason: Pain or Fever >101 Stop: 10/23/17 19:40 Acetaminophen/Hydrocodone Bitart ([place] 5mg/325mg) 1 tab GT Q4HR PRN PRN Reason: Pain (Moderate) Stop: 10/23/17 19:40 Albuterol Sulfate (Albuterol 2.5mg/3ml Neb Ud) 2.5 mg HHN Q4HRT PRN PRN Reason: Shortness of Breath Stop: 10/23/17 19:40 Bisacodyl (Dulcolax 10 Mg Supp) 10 mg RC DAILY PRN PRN Reason: Constipation Stop: 10/23/17 19:40 Docusate Sodium (Colace) 100 mg GT DAILY PRN PRN Reason: CONSTIPATION Stop: 10/24/17 08:59 Last Admin: 08/27/17 17:38 Dose: 100 mg Heparin Sodium (Porcine) (Heparin) 5,000 units SUBQ Q12HR [facility] Stop: 10/24/17 20:59 Last Admin: 09/02/17 08:51 Dose: Not Given Levofloxacin (Levaquin Pb) 250 mg in 50 mls @ 50 mls/hr IV Q24H [facility] Stop: 10/29/17 14:59 Last Admin: 09/01/17 16:58 Dose: 50 mls/hr Potassium Chloride/Dextrose/Sod Cl (D5-0.45ns W/20 Meq Kcl) 1,000 mls @ 75 mls/ hr IV .[id number] [facility] Stop: 10/30/17 12:44 Last Admin: 09/02/17 06:22 Dose: 75 mls/hr Insulin Aspart (Novolog Insulin Sliding Scale) 0 units SUBQ ACHS [facility]; Protocol Stop: 10/23/17 20:59 Last Admin: 09/02/17 11:33 Dose: Not Given Ipratropium [place] (Atrovent Neb 0.5mg/2.5ml) 0.5 mg HHN Q4HRT PRN PRN Reason: Shortness of Breath or Wheeze Stop: 10/23/17 19:40 Lactic Acid (Lac-Hydrin Cream) 1 appl TP DAILY [facility] Stop: 10/24/17 08:59 Last Admin: 09/02/17 08:51 Dose: Not Given Lactobacillus Rhamnosus (Culturelle 15b) 1 each PO DAILY [facility] Stop: 10/29/17 08:59 Last Admin: 09/02/17 08:51 Dose: Not Given Lorazepam (Ativan) 0.5 mg PO Q6HR PRN; Protocol PRN Reason: Agitation Stop: 10/23/17 19:40 Magnesium Hydroxide (Milk Of Magnesia) 30 ml PO HS PRN PRN Reason: Constipation Stop: 10/23/17 19:40 Megestrol Acetate (Megace) 400 mg PO BID FOZIA Stop: 10/24/17 08:59 Last Admin: 09/02/17 08:51 Dose: Not Given Mirtazapine (Remeron) 15 mg PO HS FOZIA; Protocol Stop: 10/30/17 20:59 Last Admin: 09/01/17 21:47 Dose: Not Given Miscellaneous (Vte Chemical Prophylaxis Screen/ Admission) 1 ea MC PRN PRN PRN Reason: PROTOCOL Stop: 10/24/17 09:26 Miscellaneous (Probiotic Screen) 1 ea MC PRN PRN PRN Reason: PROTOCOL Stop: 10/29/17 08:59 Olanzapine (Zyprexa) 5 mg PO HS FOZIA; Protocol Stop: 10/23/17 20:59 Last Admin: 09/02/17 00:15 Dose: Not Given Sodium Phosphate (Fleet Enema) 135 ml RC DAILY PRN PRN Reason: Constipation Stop: 10/23/17 19:40 Zolpidem Tartrate (Ambien) 5 mg PO HS PRN PRN Reason: Insomnia Stop: 10/23/17 19:40 General: demented, disheveled, thin, cachectic HEENT: NC/AT, PERRLA Neck: Supple, No JVD, No LAD Lungs: congested, chest deformity present Cardiovascular: RRR, Normal S1, Normal S2, with murmur Abdomen: soft, non-tender, thin, positive bowel sound Extremities: excoriation, contracture, deformity Neurological: disorganized, muscle weakness, unable to follow command - Procedures Procedures: Procedures Procedure Code Date RECREATIONAL THERAPY 93.81 11/09/10 Internal Medicine Assmt/Plan - Assessment Assessment: Failure to thrive poor p.o. intake severe protein-caloric malnutrition diabetes congestive heart failure acute on chronic renal insufficiency schizoaffective disorder hypertension hypokalemia dementia legally blind leukocytosis bedbound. noncompliant - Plan Plan: ivf for hydration monitor electrolytes continue current plan of care Nutritional Asmnt/Malnutr-PDOC - Dietary Evaluation Malnutrition Findings (Please click <Entered> for more info): Nutritional Asmnt/Malnutrition Start: 08/25/17 17: 28 Text: Status: Complete Freq: Protocol: Document 08/25/17 17:28 REDD (Rec: 08/25/17 17:32 REDD [id number]) Nutritional Asmnt/Malnutrition Patient General Information Nutritional Screening High Risk Consult Diagnosis dehydration, FTT Pertinent Medical Hx/Surgical Hx DM, CHF, kidney failure, schizophrenia, HTN, dementia, legally blind, noncompliance Subjective Information Consult received for poor oral intake. Pt seen resting in bed at time of visit. Per nurse note, pt refused breakfast and lunch today. Pt on calorie count noted. Current Diet Order/ Nutrition Support pureed, nectar thin liquid Pertinent Medications D5-0.45ns, colace, novolog, megace Pertinent Labs 08/25 K 3.0, glucose 106 Nutritional Hx/Data Height 5 ft 6 in Height (Calculated Centimeters) 167.6 Current Weight (lbs) 111 lb Weight (Calculated Kilograms) 50.3 Weight (Calculated Grams) 50433.8 [place] Body Weight 130 Body Mass Index (BMI) 17.9 Weight Status Underweight GI Symptoms GI Symptoms None Last BM none Skin Integrity/Comment: redness Estimated Nutritional Goals BEE in Kcals: Using Current wt Calories/Kcals/Kg 30-35 Kcals Calculated [id number] Protein: Using Current wt Protein g/k.2 Protein Calculated 60 Fluid: ml 1500-1750ml (1ml/kcal) Nutritional Problem 1. Problem Problem inadequate food intake Etiology pt refusing to eat Signs/Symptoms: PO intake <25% since admission Malnutrition Alert Muscle Mass (Non-Severe) Mild Depletion Is there a minimum of two criteria No selected? Query Text:Check all the applicable criteria. A minimum of two criteria are recommended for diagnosis of either severe or non-severe malnutrition. Malnutrition Related to Morbid Obesity Malnutrition related to morbid obesity No Intervention/Recommendation Comments 1. Continue with current diet as ordered. Assist pt with meals and encourage oral intake. 2. Monitor PO intake, wt, labs and skin integrity 3. F/U as high risk in 2-3 days, 08/27-08/28 Expected Outcomes/Goals Expected Outcomes/Goals 1. PO intake to meet at least 75% of nutritional needs. 2. Wt stability, skin to remain intact, labs to approach WNL.
[2017-09-02 12:18] LABS: FOLIC ACID 4.8 ng/mL (>3.0)
[2017-09-02] MEDS: Levofloxacin 250mg/50mL 250 MG/50 ML BAG IV SCH (14:08)
[2017-09-03 06:01] LABS: % BASOPHILS 0.5 % (0.0-2.0); % EOSINOPHILS 0.4 % (0.0-5.0); % LYMPHOCYTES 13.9 % (20.0-50.0); % MONOCYTES 5.6 % (2.0-10.0); % NEUTROPHILS 79.6 % (40.0-80.0); HEMATOCRIT 30.3 % (41.0-60); HEMOGLOBIN 10.4 gm/dL (12-16); LYMPHOCYTE ABSOLUTE 0.9 Th/cmm (1.5-3.0); MEAN CELL VOLUME 88.3 fl (81-100); MEAN CORPUSCULAR HEMOGLOBIN 30.2 pg (27.0-31.0); MEAN CORPUSCULAR HGB CONC 34.2 pg (28.0-36.0); MEAN PLATELET VOLUME 9.1 fl; MONOCYTE ABSOLUTE 0.4 Th/cmm (0.3-1.0); RED BLOOD COUNT 3.43 Mil/cmm (3.80-5.20)
[2017-09-03 06:02] LABS: PLATELET COUNT 184 Th/cmm (150-400); WHITE BLOOD COUNT 6.3 Th/cmm (4.8-10.8)
[2017-09-03 06:18] LABS: ANION GAP 6.3 (7.0-16.0); BUN - UREA NITROGEN 8 mg/dL (7-25); CALCIUM SERUM 8.9 mg/dL (8.6-10.3); CARBON DIOXIDE 26.2 mEq/L (21.0-31.0); CHLORIDE 111 mEq/L (98-107); CREATININE - SERUM 0.8 mg/dL (0.6-1.2); GFR AFRICAN-AMERICAN > 60.0 ml/min (>90); GFR NON AFRICAN-AMERICAN > 60.0 ml/min; GLUCOSE 82 mg/dL (70-105); POTASSIUM SERUM 3.5 mEq/L (3.5-5.1); SODIUM SERUM 140 mEq/L (136-145)
[2017-09-03] MEDS: INSULIN ASPART SLIDING SCALE 100 UNITS/ML UNIT SUBQ SCH ×4 (06:53→20:22)
[2017-09-03] MEDS: Lactobacillus Rhamnosus GG 15 Billion CFU CAP.SPRINK PO SCH (09:22)
[2017-09-03] MEDS: Ammonium Lactate Cream 140 gm Tube TP SCH (09:24)
--- NOTE | 2017-09-03 14:03 | Internal Medicine Prog Note ---
Internal Medicine Subjective - Subjective Service Date: 09/03/17 Patient is:: awake, eyes closed, in bed, confused Patient Complaints of:: congestion Per staff patient has:: no adverse event, poor appetite, unstable gait, agitated , combative, refusing care, refusing labs Internal Medicine Objective - Results Result Diagrams: 09/03/17 05:38 09/03/17 05:38 Recent Labs: Laboratory Last Values WBC 6.3 Th/cmm (4.8-10.8) D 09/03/17 05:38 RBC 3.43 Mil/cmm (3.80-5.20) L 09/03/17 05:38 Hgb 10.4 gm/dL (12-16) L 09/03/17 05:38 Hct 30.3 % (41.0-60) L 09/03/17 05:38 MCV 88.3 fl (81-100) 09/03/17 05:38 MCH 30.2 pg (27.0-31.0) 09/03/17 05:38 MCHC Differential 34.2 pg (28.0-36.0) 09/03/17 05:38 RDW 16.0 % (11.5-20.0) 09/03/17 05:38 Plt Count 184 Th/cmm (150-400) D 09/03/17 05:38 MPV 9.1 fl 09/03/17 05:38 Neutrophils % 79.6 % (40.0-80.0) 09/03/17 05:38 Lymphocytes % 13.9 % (20.0-50.0) L 09/03/17 05:38 Monocytes % 5.6 % (2.0-10.0) 09/03/17 05:38 Eosinophils % 0.4 % (0.0-5.0) 09/03/17 05:38 Basophils % 0.5 % (0.0-2.0) 09/03/17 05:38 Sodium 140 mEq/L (136-145) 09/03/17 05:38 Potassium 3.5 mEq/L (3.5-5.1) 09/03/17 05:38 Chloride 111 mEq/L (98-107) H 09/03/17 05:38 Carbon Dioxide 26.2 mEq/L (21.0-31.0) 09/03/17 05:38 Anion Gap 6.3 (7.0-16.0) L 09/03/17 05:38 BUN 8 mg/dL (7-25) 09/03/17 05:38 Creatinine 0.8 mg/dL (0.6-1.2) 09/03/17 05:38 Est GFR ( Amer) > 60.0 ml/min (>90) 09/03/17 05:38 Est GFR (Non-Af Amer) > 60.0 ml/min 09/03/17 05:38 BUN/Creatinine Ratio 10.0 09/03/17 05:38 Glucose 82 mg/dL (70-105) 09/03/17 05:38 POC Glucose 101 MG/DL (70 - 105) 09/01/17 05:19 Calcium 8.9 mg/dL (8.6-10.3) 09/03/17 05:38 Magnesium 2.2 mg/dL (1.9-2.7) 09/01/17 05:40 Total Bilirubin 0.8 mg/dL (0.3-1.0) 08/25/17 10:24 AST 11 U/L (13-39) L 08/25/17 10:24 ALT 5 U/L (7-52) L 08/25/17 10:24 Alkaline Phosphatase 50 U/L (34-104) 08/25/17 10:24 Ammonia 43 umol/L (16-53) 09/01/17 05:40 B-Natriuretic Peptide 86.7 pg/mL (5.0-100.0) 08/31/17 05:00 Total Protein 5.3 gm/dL (6.0-8.3) L 08/25/17 10:24 Albumin 3.0 gm/dL (3.7-5.3) L 08/25/17 10:24 Globulin 2.3 gm/dL 08/25/17 10:24 Albumin/Globulin Ratio 1.3 (1.0-1.8) 08/25/17 10:24 Vitamin B12 790 pg/mL (232-1245) 09/01/17 05:40 Folic Acid 4.8 ng/mL (>3.0) 09/01/17 05:40 TSH 1.63 uIU/ml (0.34-5.60) 09/01/17 05:40 Urine Source [place] 08/29/17 13:45 Urine Color YELLOW 08/29/17 13:45 Urine Clarity SLIGHTLY HAZY (CLEAR) 08/29/17 13:45 Urine pH 7.5 (4.6 - 8.0) 08/29/17 13:45 Ur Specific [place] 1.010 (1.005-1.030) 08/29/17 13:45 Urine Protein NEGATIVE mg/dL (NEGATIVE) 08/29/17 13:45 Urine Glucose (UA) NEGATIVE mg/dL (NEGATIVE) 08/29/17 13:45 Urine Ketones NEGATIVE mg/dL (NEGATIVE) 08/29/17 13:45 Urine Blood TRACE (NEGATIVE) 08/29/17 13:45 Urine Nitrate NEGATIVE (NEGATIVE) 08/29/17 13:45 Urine Bilirubin NEGATIVE (NEGATIVE) 08/29/17 13:45 Urine Urobilinogen 0.2 E.U./dL (0.2 - 1.0) 08/29/17 13:45 Ur Leukocyte Esterase NEGATIVE (NEGATIVE) 08/29/17 13:45 Urine RBC 0-2 /hpf (0-5) 08/29/17 13:45 Urine WBC 0-2 /hpf (0-5) 08/29/17 13:45 Ur Epithelial Cells OCCASIONAL /lpf (FEW) 08/29/17 13:45 Urine Bacteria FEW /hpf (NONE SEEN) 08/29/17 13:45 - Physical Exam Vitals and I&O: Vital Signs Temp 97.9 F 09/03/17 11:50 Pulse 65 09/03/17 11:50 Resp 18 09/03/17 11:50 BP 131/78 09/03/17 11:50 Pulse Ox 96 09/03/17 11:50 Intake & Output 09/02/17 09/03/17 09/03/17 18:59 06:59 18:59 Intake Total 833.75 Output Total 725 Balance 833.75 -725 Weight (lbs) 100 lb 6 oz Intake: Intake, IV Amount 833.75 D5-0.45NS w/20 mEq KCL 1, 833.75 000 ml @ 75 mls/hr IV . [id number] FOZIA Rx#:[id number] Output: Urine 725 Other: # Bowel Movements 0 Weight Source Bedscale Active Medications: Current Medications Acetaminophen (Tylenol) 650 mg GT Q4HR PRN PRN Reason: Pain or Fever >101 Stop: 10/23/17 19:40 Acetaminophen/Hydrocodone Bitart ([place] 5mg/325mg) 1 tab GT Q4HR PRN PRN Reason: Pain (Moderate) Stop: 10/23/17 19:40 Albuterol Sulfate (Albuterol 2.5mg/3ml Neb Ud) 2.5 mg HHN Q4HRT PRN PRN Reason: Shortness of Breath Stop: 10/23/17 19:40 Bisacodyl (Dulcolax 10 Mg Supp) 10 mg RC DAILY PRN PRN Reason: Constipation Stop: 10/23/17 19:40 Docusate Sodium (Colace) 100 mg GT DAILY PRN PRN Reason: CONSTIPATION Stop: 10/24/17 08:59 Last Admin: 08/27/17 17:38 Dose: 100 mg Heparin Sodium (Porcine) (Heparin) 5,000 units SUBQ Q12HR [facility] Stop: 10/24/17 20:59 Last Admin: 09/03/17 09:22 Dose: Not Given Levofloxacin (Levaquin Pb) 250 mg in 50 mls @ 50 mls/hr IV Q24H [facility] Stop: 10/29/17 14:59 Last Admin: 09/02/17 14:08 Dose: 50 mls/hr Potassium Chloride/Dextrose/Sod Cl (D5-0.45ns W/20 Meq Kcl) 1,000 mls @ 75 mls/ hr IV .[id number] [facility] Stop: 10/30/17 12:44 Last Admin: 09/02/17 17:29 Dose: 75 mls/hr Insulin Aspart (Novolog Insulin Sliding Scale) 0 units SUBQ ACHS FOZIA; Protocol Stop: 10/23/17 20:59 Last Admin: 09/03/17 06:53 Dose: Not Given Ipratropium [place] (Atrovent Neb 0.5mg/2.5ml) 0.5 mg HHN Q4HRT PRN PRN Reason: Shortness of Breath or Wheeze Stop: 10/23/17 19:40 Lactic Acid (Lac-Hydrin Cream) 1 appl TP DAILY [facility] Stop: 10/24/17 08:59 Last Admin: 09/03/17 09:24 Dose: 1 appl Lactobacillus Rhamnosus (Culturelle 15b) 1 each PO DAILY [facility] Stop: 10/29/17 08:59 Last Admin: 09/03/17 09:22 Dose: Not Given Lorazepam (Ativan) 0.5 mg PO Q6HR PRN; Protocol PRN Reason: Agitation Stop: 10/23/17 19:40 Magnesium Hydroxide (Milk Of Magnesia) 30 ml PO HS PRN PRN Reason: Constipation Stop: 10/23/17 19:40 Megestrol Acetate (Megace) 400 mg PO BID FOZ[facility] Stop: 10/24/17 08:59 Last Admin: 09/03/17 09:23 Dose: Not Given Mirtazapine (Remeron) 15 mg PO HS FOZIA; Protocol Stop: 10/30/17 20:59 Last Admin: 09/02/17 21:48 Dose: Not Given Miscellaneous (Vte Chemical Prophylaxis Screen/ Admission) 1 ea PRN PRN PRN Reason: PROTOCOL Stop: 10/24/17 09:26 Miscellaneous (Probiotic Screen) 1 ea PRN PRN PRN Reason: PROTOCOL Stop: 10/29/17 08:59 Olanzapine (Zyprexa) 5 mg PO HS FOZIA; Protocol Stop: 10/23/17 20:59 Last Admin: 09/02/17 21:48 Dose: Not Given Sodium Phosphate (Fleet Enema) 135 ml RC DAILY PRN PRN Reason: Constipation Stop: 10/23/17 19:40 Zolpidem Tartrate (Ambien) 5 mg PO HS PRN PRN Reason: Insomnia Stop: 10/23/17 19:40 General: demented, disheveled, thin, cachectic HEENT: NC/AT, PERRLA Neck: Supple, No JVD, No LAD Lungs: congested, chest deformity present Cardiovascular: RRR, Normal S1, Normal S2, with murmur Abdomen: soft, non-tender, thin, positive bowel sound Extremities: excoriation, contracture, deformity Neurological: disorganized, muscle weakness, unable to follow command - Procedures Procedures: Procedures Procedure Code Date RECREATIONAL THERAPY 93.81 11/09/10 Internal Medicine Assmt/Plan - Assessment Assessment: Failure to thrive poor p.o. intake severe protein-caloric malnutrition diabetes congestive heart failure acute on chronic renal insufficiency schizoaffective disorder hypertension hypokalemia dementia legally blind leukocytosis bedbound. noncompliant - Plan Plan: ivf for hydration monitor electrolytes continue current plan of care Nutritional Asmnt/Malnutr-PDOC - Dietary Evaluation Malnutrition Findings (Please click <Entered> for more info): Nutritional Asmnt/Malnutrition Start: 08/25/17 17: 28 Text: Status: Complete Freq: Protocol: Document 08/25/17 17:28 [email or web address] (Rec: 08/25/17 17:32 [email or web address]) Nutritional Asmnt/Malnutrition Patient General Information Nutritional Screening High Risk Consult Diagnosis dehydration, FTT Pertinent Medical Hx/Surgical Hx DM, CHF, kidney failure, schizophrenia, HTN, dementia, legally blind, noncompliance Subjective Information Consult received for poor oral intake. Pt seen resting in bed at time of visit. Per nurse note, pt refused breakfast and lunch today. Pt on calorie count noted. Current Diet Order/ Nutrition Support pureed, nectar thin liquid Pertinent Medications D5-0.45ns, colace, novolog, megace Pertinent Labs / K 3.0, glucose 106 Nutritional Hx/Data Height 5 ft 6 in Height (Calculated Centimeters) 167.6 Current Weight (lbs) 111 lb Weight (Calculated Kilograms) 50.3 Weight (Calculated Grams) 68091.8 [place] Body Weight 130 Body Mass Index (BMI) 17.9 Weight Status Underweight GI Symptoms GI Symptoms None Last BM none Skin Integrity/Comment: redness Estimated Nutritional Goals BEE in Kcals: Using Current wt Calories/Kcals/Kg 30-35 Kcals Calculated 8159-2530 Protein: Using Current wt Protein g/k.2 Protein Calculated 60 Fluid: ml 1500-1750ml (1ml/kcal) Nutritional Problem 1. Problem Problem inadequate food intake Etiology pt refusing to eat Signs/Symptoms: PO intake <25% since admission Malnutrition Alert Muscle Mass (Non-Severe) Mild Depletion Is there a minimum of two criteria No selected? Query Text:Check all the applicable criteria. A minimum of two criteria are recommended for diagnosis of either severe or non-severe malnutrition. Malnutrition Related to Morbid Obesity Malnutrition related to morbid obesity No Intervention/Recommendation Comments 1. Continue with current diet as ordered. Assist pt with meals and encourage oral intake. 2. Monitor PO intake, wt, labs and skin integrity 3. F/U as high risk in 2-3 days, 08/27-08/28 Expected Outcomes/Goals Expected Outcomes/Goals 1. PO intake to meet at least 75% of nutritional needs. 2. Wt stability, skin to remain intact, labs to approach WNL.
[2017-09-03] MEDS: Levofloxacin 250mg/50mL 250 MG/50 ML BAG IV SCH (15:01)
[2017-09-03] MEDS: D5-0.45NS w/20 mEq KCL 1,000 ML IV SCH (23:09)
[2017-09-04 05:53] LABS: % BASOPHILS 0.2 % (0.0-2.0); % EOSINOPHILS 0.3 % (0.0-5.0); % LYMPHOCYTES 9.5 % (20.0-50.0); % MONOCYTES 4.4 % (2.0-10.0); % NEUTROPHILS 85.6 % (40.0-80.0); HEMATOCRIT 30.8 % (41.0-60); HEMOGLOBIN 10.5 gm/dL (12-16); LYMPHOCYTE ABSOLUTE 0.8 Th/cmm (1.5-3.0); MEAN CELL VOLUME 89.4 fl (81-100); MEAN CORPUSCULAR HEMOGLOBIN 30.3 pg (27.0-31.0); MEAN CORPUSCULAR HGB CONC 33.9 pg (28.0-36.0); MEAN PLATELET VOLUME 9.6 fl; MONOCYTE ABSOLUTE 0.4 Th/cmm (0.3-1.0); NEUTROPHILE ABSOLUTE 7.4 Th/cmm (1.8-8.0); PLATELET COUNT 193 Th/cmm (150-400); RED BLOOD COUNT 3.45 Mil/cmm (3.80-5.20); RED CELL DISTRIBUTION WIDTH 16.1 % (11.5-20.0)
[2017-09-04 05:57] LABS: WHITE BLOOD COUNT 8.6 Th/cmm (4.8-10.8)
[2017-09-04 06:04] LABS: ANION GAP 8.8 (7.0-16.0); BUN - UREA NITROGEN 8 mg/dL (7-25); CARBON DIOXIDE 23.9 mEq/L (21.0-31.0); CHLORIDE 112 mEq/L (98-107); CREATININE - SERUM 0.8 mg/dL (0.6-1.2); GFR AFRICAN-AMERICAN > 60.0 ml/min (>90); GFR NON AFRICAN-AMERICAN > 60.0 ml/min; GLUCOSE 86 mg/dL (70-105); POTASSIUM SERUM 3.7 mEq/L (3.5-5.1); SODIUM SERUM 141 mEq/L (136-145)
[2017-09-04] MEDS: INSULIN ASPART SLIDING SCALE 100 UNITS/ML UNIT SUBQ SCH ×3 (09:33→20:45)
[2017-09-04] MEDS: Lactobacillus Rhamnosus GG 15 Billion CFU CAP.SPRINK PO SCH (09:39)
[2017-09-04] MEDS: Ammonium Lactate Cream 140 gm Tube TP SCH (09:39)
--- NOTE | 2017-09-04 11:18 | Internal Medicine Prog Note ---
Internal Medicine Subjective - Subjective Service Date: 09/04/17 (spoke to patient regarding appetite patient states to leave her alone and she does not feel like eating. ) Patient seen and examined:: with staff Patient is:: awake, eyes closed, in bed, confused Patient Complaints of:: congestion Per staff patient has:: no adverse event, poor appetite, unstable gait, agitated , combative, refusing care, refusing labs Internal Medicine Objective - Results Result Diagrams: 09/04/17 05:25 09/04/17 05:25 Recent Labs: Laboratory Last Values WBC 8.6 Th/cmm (4.8-10.8) D 09/04/17 05:25 RBC 3.45 Mil/cmm (3.80-5.20) L 09/04/17 05:25 Hgb 10.5 gm/dL (12-16) L 09/04/17 05:25 Hct 30.8 % (41.0-60) L 09/04/17 05:25 MCV 89.4 fl (81-100) 09/04/17 05:25 MCH 30.3 pg (27.0-31.0) 09/04/17 05:25 MCHC Differential 33.9 pg (28.0-36.0) 09/04/17 05:25 RDW 16.1 % (11.5-20.0) 09/04/17 05:25 Plt Count 193 Th/cmm (150-400) 09/04/17 05:25 MPV 9.6 fl 09/04/17 05:25 Neutrophils % 85.6 % (40.0-80.0) H 09/04/17 05:25 Lymphocytes % 9.5 % (20.0-50.0) L 09/04/17 05:25 Monocytes % 4.4 % (2.0-10.0) 09/04/17 05:25 Eosinophils % 0.3 % (0.0-5.0) 09/04/17 05:25 Basophils % 0.2 % (0.0-2.0) 09/04/17 05:25 Sodium 141 mEq/L (136-145) 09/04/17 05:25 Potassium 3.7 mEq/L (3.5-5.1) 09/04/17 05:25 Chloride 112 mEq/L (98-107) H 09/04/17 05:25 Carbon Dioxide 23.9 mEq/L (21.0-31.0) 09/04/17 05:25 Anion Gap 8.8 (7.0-16.0) 09/04/17 05:25 BUN 8 mg/dL (7-25) 09/04/17 05:25 Creatinine 0.8 mg/dL (0.6-1.2) 09/04/17 05:25 Est GFR ( Amer) > 60.0 ml/min (>90) 09/04/17 05:25 Est GFR (Non-Af Amer) > 60.0 ml/min 09/04/17 05:25 BUN/Creatinine Ratio 10.0 09/04/17 05:25 Glucose 86 mg/dL (70-105) 09/04/17 05:25 POC Glucose 101 MG/DL (70 - 105) 09/01/17 05:19 Calcium 9.0 mg/dL (8.6-10.3) 09/04/17 05:25 Magnesium 2.2 mg/dL (1.9-2.7) 09/01/17 05:40 Total Bilirubin 0.8 mg/dL (0.3-1.0) 08/25/17 10:24 AST 11 U/L (13-39) L 08/25/17 10:24 ALT 5 U/L (7-52) L 08/25/17 10:24 Alkaline Phosphatase 50 U/L (34-104) 08/25/17 10:24 Ammonia 43 umol/L (16-53) 09/01/17 05:40 B-Natriuretic Peptide 86.7 pg/mL (5.0-100.0) 08/31/17 05:00 Total Protein 5.3 gm/dL (6.0-8.3) L 08/25/17 10:24 Albumin 3.0 gm/dL (3.7-5.3) L 08/25/17 10:24 Globulin 2.3 gm/dL 08/25/17 10:24 Albumin/Globulin Ratio 1.3 (1.0-1.8) 08/25/17 10:24 Vitamin B12 790 pg/mL (232-1245) 09/01/17 05:40 Folic Acid 4.8 ng/mL (>3.0) 09/01/17 05:40 TSH 1.63 uIU/ml (0.34-5.60) 09/01/17 05:40 Urine Source [place] 08/29/17 13:45 Urine Color YELLOW 08/29/17 13:45 Urine Clarity SLIGHTLY HAZY (CLEAR) 08/29/17 13:45 Urine pH 7.5 (4.6 - 8.0) 08/29/17 13:45 Ur Specific [place] 1.010 (1.005-1.030) 08/29/17 13:45 Urine Protein NEGATIVE mg/dL (NEGATIVE) 08/29/17 13:45 Urine Glucose (UA) NEGATIVE mg/dL (NEGATIVE) 08/29/17 13:45 Urine Ketones NEGATIVE mg/dL (NEGATIVE) 08/29/17 13:45 Urine Blood TRACE (NEGATIVE) 08/29/17 13:45 Urine Nitrate NEGATIVE (NEGATIVE) 08/29/17 13:45 Urine Bilirubin NEGATIVE (NEGATIVE) 08/29/17 13:45 Urine Urobilinogen 0.2 E.U./dL (0.2 - 1.0) 08/29/17 13:45 Ur Leukocyte Esterase NEGATIVE (NEGATIVE) 08/29/17 13:45 Urine RBC 0-2 /hpf (0-5) 08/29/17 13:45 Urine WBC 0-2 /hpf (0-5) 08/29/17 13:45 Ur Epithelial Cells OCCASIONAL /lpf (FEW) 08/29/17 13:45 Urine Bacteria FEW /hpf (NONE SEEN) 08/29/17 13:45 - Physical Exam Vitals and I&O: Vital Signs Temp 97.6 F 09/04/17 07:56 Pulse 63 09/04/17 07:56 Resp 18 09/04/17 08:00 BP 116/72 09/04/17 07:56 Pulse Ox 98 09/04/17 07:56 Intake & Output 09/03/17 09/04/17 09/04/17 18:59 06:59 18:59 Intake Total 0 Output Total 200 Balance -200 Weight (lbs) 100 lb 103 lb 7 oz Intake: Oral 0 Output: Urine 200 Other: Weight Source Bedscale Estimated Active Medications: Current Medications Acetaminophen (Tylenol) 650 mg GT Q4HR PRN PRN Reason: Pain or Fever >101 Stop: 10/23/17 19:40 Acetaminophen/Hydrocodone Bitart ([place] 5mg/325mg) 1 tab GT Q4HR PRN PRN Reason: Pain (Moderate) Stop: 10/23/17 19:40 Albuterol Sulfate (Albuterol 2.5mg/3ml Neb Ud) 2.5 mg HHN Q4HRT PRN PRN Reason: Shortness of Breath Stop: 10/23/17 19:40 Bisacodyl (Dulcolax 10 Mg Supp) 10 mg RC DAILY PRN PRN Reason: Constipation Stop: 10/23/17 19:40 Docusate Sodium (Colace) 100 mg GT DAILY PRN PRN Reason: CONSTIPATION Stop: 10/24/17 08:59 Last Admin: 08/27/17 17:38 Dose: 100 mg Heparin Sodium (Porcine) (Heparin) 5,000 units SUBQ Q12HR [facility] Stop: 10/24/17 20:59 Last Admin: 09/04/17 09:39 Dose: Not Given Levofloxacin (Levaquin Pb) 250 mg in 50 mls @ 50 mls/hr IV Q24H [facility] Stop: 10/29/17 14:59 Last Admin: 09/03/17 15:01 Dose: 50 mls/hr Potassium Chloride/Dextrose/Sod Cl (D5-0.45ns W/20 Meq Kcl) 1,000 mls @ 75 mls/ hr IV .[id number] [facility] Stop: 10/30/17 12:44 Last Admin: 09/03/17 23:09 Dose: 75 mls/hr Insulin Aspart (Novolog Insulin Sliding Scale) 0 units SUBQ ACHS [facility]; Protocol Stop: 10/23/17 20:59 Last Admin: 09/04/17 09:33 Dose: Not Given Ipratropium [place] (Atrovent Neb 0.5mg/2.5ml) 0.5 mg HHN Q4HRT PRN PRN Reason: Shortness of Breath or Wheeze Stop: 10/23/17 19:40 Lactic Acid (Lac-Hydrin Cream) 1 appl TP DAILY [facility] Stop: 10/24/17 08:59 Last Admin: 09/04/17 09:39 Dose: 1 appl Lactobacillus Rhamnosus (Culturelle 15b) 1 each PO DAILY [facility] Stop: 10/29/17 08:59 Last Admin: 09/04/17 09:39 Dose: Not Given Lorazepam (Ativan) 0.5 mg PO Q6HR PRN; Protocol PRN Reason: Agitation Stop: 10/23/17 19:40 Magnesium Hydroxide (Milk Of Magnesia) 30 ml PO HS PRN PRN Reason: Constipation Stop: 10/23/17 19:40 Megestrol Acetate (Megace) 400 mg PO BID [facility] Stop: 10/24/17 08:59 Last Admin: 09/04/17 09:40 Dose: Not Given Mirtazapine (Remeron) 15 mg PO HS FOZIA; Protocol Stop: 10/30/17 20:59 Last Admin: 09/03/17 20:22 Dose: Not Given Miscellaneous (Vte Chemical Prophylaxis Screen/ Admission) 1 ea MC PRN PRN PRN Reason: PROTOCOL Stop: 10/24/17 09:26 Miscellaneous (Probiotic Screen) 1 ea PRN PRN PRN Reason: PROTOCOL Stop: 10/29/17 08:59 Olanzapine (Zyprexa) 5 mg PO HS [facility]ZIA; Protocol Stop: 10/23/17 20:59 Last Admin: 09/03/17 20:22 Dose: Not Given Sodium Phosphate (Fleet Enema) 135 ml RC DAILY PRN PRN Reason: Constipation Stop: 10/23/17 19:40 Zolpidem Tartrate (Ambien) 5 mg PO HS PRN PRN Reason: Insomnia Stop: 10/23/17 19:40 General: demented, disheveled, thin, cachectic HEENT: NC/AT, PERRLA Neck: Supple, No JVD, No LAD Lungs: congested, chest deformity present Cardiovascular: RRR, Normal S1, Normal S2, with murmur Abdomen: soft, non-tender, thin, positive bowel sound Extremities: excoriation, contracture, deformity Neurological: disorganized, muscle weakness, unable to follow command - Procedures Procedures: Procedures Procedure Code Date RECREATIONAL THERAPY 93.81 11/09/10 Internal Medicine Assmt/Plan - Assessment Assessment: Failure to thrive poor p.o. intake severe protein-caloric malnutrition diabetes congestive heart failure acute on chronic renal insufficiency schizoaffective disorder hypertension hypokalemia dementia legally blind leukocytosis bedbound. noncompliant - Plan Plan: conservator is currently on vacation and consent for peg pending. ivf for hydration monitor electrolytes continue current plan of care Nutritional Asmnt/Malnutr-PDOC - Dietary Evaluation Malnutrition Findings (Please click <Entered> for more info): Nutritional Asmnt/Malnutrition Start: 08/25/17 17: 28 Text: Status: Complete Freq: Protocol: Document 08/25/17 17:28 [email or web address] (Rec: 08/25/17 17:32 [email or web address]) Nutritional Asmnt/Malnutrition Patient General Information Nutritional Screening High Risk Consult Diagnosis dehydration, FTT Pertinent Medical Hx/Surgical Hx DM, CHF, kidney failure, schizophrenia, HTN, dementia, legally blind, noncompliance Subjective Information Consult received for poor oral intake. Pt seen resting in bed at time of visit. Per nurse note, pt refused breakfast and lunch today. Pt on calorie count noted. Current Diet Order/ Nutrition Support pureed, nectar thin liquid Pertinent Medications D5-0.45ns, colace, novolog, megace Pertinent Labs 08/25 K 3.0, glucose 106 Nutritional Hx/Data Height 5 ft 6 in Height (Calculated Centimeters) 167.6 Current Weight (lbs) 111 lb Weight (Calculated Kilograms) 50.3 Weight (Calculated Grams) 77070.8 [place] Body Weight 130 Body Mass Index (BMI) 17.9 Weight Status Underweight GI Symptoms GI Symptoms None Last BM none Skin Integrity/Comment: redness Estimated Nutritional Goals BEE in Kcals: Using Current wt Calories/Kcals/Kg 30-35 Kcals Calculated 1175-9806 Protein: Using Current wt Protein g/k.2 Protein Calculated 60 Fluid: ml 1500-1750ml (1ml/kcal) Nutritional Problem 1. Problem Problem inadequate food intake Etiology pt refusing to eat Signs/Symptoms: PO intake <25% since admission Malnutrition Alert Muscle Mass (Non-Severe) Mild Depletion Is there a minimum of two criteria No selected? Query Text:Check all the applicable criteria. A minimum of two criteria are recommended for diagnosis of either severe or non-severe malnutrition. Malnutrition Related to Morbid Obesity Malnutrition related to morbid obesity No Intervention/Recommendation Comments 1. Continue with current diet as ordered. Assist pt with meals and encourage oral intake. 2. Monitor PO intake, wt, labs and skin integrity 3. F/U as high risk in 2-3 days, 08/27-08/28 Expected Outcomes/Goals Expected Outcomes/Goals 1. PO intake to meet at least 75% of nutritional needs. 2. Wt stability, skin to remain intact, labs to approach WNL.
[2017-09-04] MEDS: D5-0.45NS w/20 mEq KCL 1,000 ML IV SCH ×2 (12:04→12:05)
[2017-09-04] MEDS: Levofloxacin 250mg/50mL 250 MG/50 ML BAG IV SCH (14:52)
[2017-09-05] MEDS: D5-0.45NS w/20 mEq KCL 1,000 ML IV SCH (04:08)
[2017-09-05 06:27] LABS: % BASOPHILS 0.1 % (0.0-2.0); % EOSINOPHILS 0.6 % (0.0-5.0); % LYMPHOCYTES 13.1 % (20.0-50.0); % MONOCYTES 5.5 % (2.0-10.0); % NEUTROPHILS 80.7 % (40.0-80.0); HEMATOCRIT 31.4 % (41.0-60); HEMOGLOBIN 10.7 gm/dL (12-16); LYMPHOCYTE ABSOLUTE 0.8 Th/cmm (1.5-3.0); MEAN CELL VOLUME 88.5 fl (81-100); MEAN CORPUSCULAR HEMOGLOBIN 30.1 pg (27.0-31.0); MEAN PLATELET VOLUME 9.4 fl; MONOCYTE ABSOLUTE 0.3 Th/cmm (0.3-1.0); NEUTROPHILE ABSOLUTE 4.7 Th/cmm (1.8-8.0); PLATELET COUNT 197 Th/cmm (150-400); RED BLOOD COUNT 3.54 Mil/cmm (3.80-5.20); WHITE BLOOD COUNT 5.8 Th/cmm (4.8-10.8)
[2017-09-05 06:44] LABS: ANION GAP 8.9 (7.0-16.0); BUN - UREA NITROGEN 7 mg/dL (7-25); CALCIUM SERUM 9.3 mg/dL (8.6-10.3); CARBON DIOXIDE 24.9 mEq/L (21.0-31.0); CHLORIDE 110 mEq/L (98-107); CREATININE - SERUM 0.8 mg/dL (0.6-1.2); GFR AFRICAN-AMERICAN > 60.0 ml/min (>90); GFR NON AFRICAN-AMERICAN > 60.0 ml/min; GLUCOSE 128 mg/dL (70-105); POTASSIUM SERUM 3.8 mEq/L (3.5-5.1); SODIUM SERUM 140 mEq/L (136-145)
[2017-09-05] MEDS: INSULIN ASPART SLIDING SCALE 100 UNITS/ML UNIT SUBQ SCH ×4 (08:16→20:48)
[2017-09-05] MEDS: Lactobacillus Rhamnosus GG 15 Billion CFU CAP.SPRINK PO SCH (10:29)
[2017-09-05] MEDS: Ammonium Lactate Cream 140 gm Tube TP SCH (10:31)
--- NOTE | 2017-09-05 11:43 | Internal Medicine Prog Note ---
Internal Medicine Subjective - Subjective Service Date: 09/05/17 Patient is:: awake, eyes closed, in bed, confused Patient Complaints of:: congestion Per staff patient has:: no adverse event, poor appetite, unstable gait, agitated , combative, refusing care, refusing labs Internal Medicine Objective - Results Result Diagrams: 09/05/17 05:50 09/05/17 05:50 Recent Labs: Laboratory Last Values WBC 5.8 Th/cmm (4.8-10.8) 09/05/17 05:50 RBC 3.54 Mil/cmm (3.80-5.20) L 09/05/17 05:50 Hgb 10.7 gm/dL (12-16) L 09/05/17 05:50 Hct 31.4 % (41.0-60) L 09/05/17 05:50 MCV 88.5 fl (81-100) 09/05/17 05:50 MCH 30.1 pg (27.0-31.0) 09/05/17 05:50 MCHC Differential 34.0 pg (28.0-36.0) 09/05/17 05:50 RDW 16.0 % (11.5-20.0) 09/05/17 05:50 Plt Count 197 Th/cmm (150-400) 09/05/17 05:50 MPV 9.4 fl 09/05/17 05:50 Neutrophils % 80.7 % (40.0-80.0) H 09/05/17 05:50 Lymphocytes % 13.1 % (20.0-50.0) L 09/05/17 05:50 Monocytes % 5.5 % (2.0-10.0) 09/05/17 05:50 Eosinophils % 0.6 % (0.0-5.0) 09/05/17 05:50 Basophils % 0.1 % (0.0-2.0) 09/05/17 05:50 Sodium 140 mEq/L (136-145) 09/05/17 05:50 Potassium 3.8 mEq/L (3.5-5.1) 09/05/17 05:50 Chloride 110 mEq/L (98-107) H 09/05/17 05:50 Carbon Dioxide 24.9 mEq/L (21.0-31.0) 09/05/17 05:50 Anion Gap 8.9 (7.0-16.0) 09/05/17 05:50 BUN 7 mg/dL (7-25) 09/05/17 05:50 Creatinine 0.8 mg/dL (0.6-1.2) 09/05/17 05:50 Est GFR ( Amer) > 60.0 ml/min (>90) 09/05/17 05:50 Est GFR (Non-Af Amer) > 60.0 ml/min 09/05/17 05:50 BUN/Creatinine Ratio 8.8 09/05/17 05:50 Glucose 128 mg/dL (70-105) H 09/05/17 05:50 POC Glucose 85 MG/DL (70 - 105) 09/05/17 06:30 Calcium 9.3 mg/dL (8.6-10.3) 09/05/17 05:50 Magnesium 2.2 mg/dL (1.9-2.7) 09/01/17 05:40 Total Bilirubin 0.8 mg/dL (0.3-1.0) 08/25/17 10:24 AST 11 U/L (13-39) L 08/25/17 10:24 ALT 5 U/L (7-52) L 08/25/17 10:24 Alkaline Phosphatase 50 U/L (34-104) 08/25/17 10:24 Ammonia 43 umol/L (16-53) 09/01/17 05:40 B-Natriuretic Peptide 86.7 pg/mL (5.0-100.0) 08/31/17 05:00 Total Protein 5.3 gm/dL (6.0-8.3) L 08/25/17 10:24 Albumin 3.0 gm/dL (3.7-5.3) L 08/25/17 10:24 Globulin 2.3 gm/dL 08/25/17 10:24 Albumin/Globulin Ratio 1.3 (1.0-1.8) 08/25/17 10:24 Vitamin B12 790 pg/mL (232-1245) 09/01/17 05:40 Folic Acid 4.8 ng/mL (>3.0) 09/01/17 05:40 TSH 1.63 uIU/ml (0.34-5.60) 09/01/17 05:40 Urine Source [place] 08/29/17 13:45 Urine Color YELLOW 08/29/17 13:45 Urine Clarity SLIGHTLY HAZY (CLEAR) 08/29/17 13:45 Urine pH 7.5 (4.6 - 8.0) 08/29/17 13:45 Ur Specific [place] 1.010 (1.005-1.030) 08/29/17 13:45 Urine Protein NEGATIVE mg/dL (NEGATIVE) 08/29/17 13:45 Urine Glucose (UA) NEGATIVE mg/dL (NEGATIVE) 08/29/17 13:45 Urine Ketones NEGATIVE mg/dL (NEGATIVE) 08/29/17 13:45 Urine Blood TRACE (NEGATIVE) 08/29/17 13:45 Urine Nitrate NEGATIVE (NEGATIVE) 08/29/17 13:45 Urine Bilirubin NEGATIVE (NEGATIVE) 08/29/17 13:45 Urine Urobilinogen 0.2 E.U./dL (0.2 - 1.0) 08/29/17 13:45 Ur Leukocyte Esterase NEGATIVE (NEGATIVE) 08/29/17 13:45 Urine RBC 0-2 /hpf (0-5) 08/29/17 13:45 Urine WBC 0-2 /hpf (0-5) 08/29/17 13:45 Ur Epithelial Cells OCCASIONAL /lpf (FEW) 08/29/17 13:45 Urine Bacteria FEW /hpf (NONE SEEN) 08/29/17 13:45 - Physical Exam Vitals and I&O: Vital Signs Temp 96.8 F 09/05/17 07:53 Pulse 46 09/05/17 07:53 Resp 18 09/05/17 08:00 BP 122/73 09/05/17 07:53 Pulse Ox 95 09/05/17 07:53 Intake & Output 09/04/17 09/05/17 09/05/17 18:59 06:59 18:59 Intake Total 968.75 1050 Output Total 2200 Balance 968.75 -1150 Weight (lbs) 101 lb Intake: Intake, IV Amount 968.75 1050 D5-0.45NS w/20 mEq KCL 1, 968.75 1000 000 ml @ 75 mls/hr IV . [id number] [facility] Rx#:[id number] Levofloxacin 250mg/50mL 50 250 mg In 50 ml @ 50 mls/ hr IV Q24H [facility] Rx#: [id number] Oral 0 Output: Urine 2200 Other: Weight Source Bedscale Active Medications: Current Medications Acetaminophen (Tylenol) 650 mg GT Q4HR PRN PRN Reason: Pain or Fever >101 Stop: 10/23/17 19:40 Acetaminophen/Hydrocodone Bitart ([place] 5mg/325mg) 1 tab GT Q4HR PRN PRN Reason: Pain (Moderate) Stop: 10/23/17 19:40 Albuterol Sulfate (Albuterol 2.5mg/3ml Neb Ud) 2.5 mg HHN Q4HRT PRN PRN Reason: Shortness of Breath Stop: 10/23/17 19:40 Bisacodyl (Dulcolax 10 Mg Supp) 10 mg RC DAILY PRN PRN Reason: Constipation Stop: 10/23/17 19:40 Docusate Sodium (Colace) 100 mg GT DAILY PRN PRN Reason: CONSTIPATION Stop: 10/24/17 08:59 Last Admin: 08/27/17 17:38 Dose: 100 mg Heparin Sodium (Porcine) (Heparin) 5,000 units SUBQ Q12HR [facility] Stop: 10/24/17 20:59 Last Admin: 09/05/17 10:29 Dose: Not Given Levofloxacin (Levaquin Pb) 250 mg in 50 mls @ 50 mls/hr IV Q24H [facility] Stop: 10/29/17 14:59 Last Infusion: 09/04/17 19:59 Dose: Infused Potassium Chloride/Dextrose/Sod Cl (D5-0.45ns W/20 Meq Kcl) 1,000 mls @ 75 mls/ hr IV .[id number] [facility] Stop: 10/30/17 12:44 Last Admin: 09/05/17 04:08 Dose: 75 mls/hr Insulin Aspart (Novolog Insulin Sliding Scale) 0 units SUBQ ACHS [facility]; Protocol Stop: 10/23/17 20:59 Last Admin: 09/05/17 08:16 Dose: Not Given Ipratropium [place] (Atrovent Neb 0.5mg/2.5ml) 0.5 mg HHN Q4HRT PRN PRN Reason: Shortness of Breath or Wheeze Stop: 10/23/17 19:40 Lactic Acid (Lac-Hydrin Cream) 1 appl TP DAILY [facility] Stop: 10/24/17 08:59 Last Admin: 09/05/17 10:31 Dose: 1 appl Lactobacillus Rhamnosus (Culturelle 15b) 1 each PO DAILY [facility] Stop: 10/29/17 08:59 Last Admin: 09/05/17 10:29 Dose: Not Given Lorazepam (Ativan) 0.5 mg PO Q6HR PRN; Protocol PRN Reason: Agitation Stop: 10/23/17 19:40 Magnesium Hydroxide (Milk Of Magnesia) 30 ml PO HS PRN PRN Reason: Constipation Stop: 10/23/17 19:40 Megestrol Acetate (Megace) 400 mg PO BID [facility] Stop: 10/24/17 08:59 Last Admin: 09/05/17 10:30 Dose: Not Given Mirtazapine (Remeron) 15 mg PO HS [facility]; Protocol Stop: 10/30/17 20:59 Last Admin: 09/04/17 20:46 Dose: Not Given Miscellaneous (Vte Chemical Prophylaxis Screen/ Admission) 1 ea PRN PRN PRN Reason: PROTOCOL Stop: 10/24/17 09:26 Miscellaneous (Probiotic Screen) 1 ea PRN PRN PRN Reason: PROTOCOL Stop: 10/29/17 08:59 Olanzapine (Zyprexa) 5 mg PO HS [facility]; Protocol Stop: 10/23/17 20:59 Last Admin: 09/04/17 20:46 Dose: Not Given Sodium Phosphate (Fleet Enema) 135 ml RC DAILY PRN PRN Reason: Constipation Stop: 10/23/17 19:40 Zolpidem Tartrate (Ambien) 5 mg PO HS PRN PRN Reason: Insomnia Stop: 10/23/17 19:40 General: demented, disheveled, thin, cachectic HEENT: NC/AT, PERRLA Neck: Supple, No JVD, No LAD Lungs: congested, chest deformity present Cardiovascular: RRR, Normal S1, Normal S2, with murmur Abdomen: soft, non-tender, thin, positive bowel sound Extremities: excoriation, contracture, deformity Neurological: disorganized, muscle weakness, unable to follow command - Procedures Procedures: Procedures Procedure Code Date RECREATIONAL THERAPY 93.81 11/09/10 Internal Medicine Assmt/Plan - Assessment Assessment: Failure to thrive poor p.o. intake severe protein-caloric malnutrition diabetes congestive heart failure acute on chronic renal insufficiency schizoaffective disorder hypertension hypokalemia dementia legally blind leukocytosis bedbound. noncompliant - Plan Plan: conservator is currently on vacation and consent for peg pending. ivf for hydration monitor electrolytes continue current plan of care Nutritional Asmnt/Malnutr-PDOC - Dietary Evaluation Malnutrition Findings (Please click <Entered> for more info): Nutritional Asmnt/Malnutrition Start: 08/25/17 17: 28 Text: Status: Complete Freq: Protocol: Document 08/25/17 17:28 LCHENG (Rec: 08/25/17 17:32 LCHENG [email or web address]) Nutritional Asmnt/Malnutrition Patient General Information Nutritional Screening High Risk Consult Diagnosis dehydration, FTT Pertinent Medical Hx/Surgical Hx DM, CHF, kidney failure, schizophrenia, HTN, dementia, legally blind, noncompliance Subjective Information Consult received for poor oral intake. Pt seen resting in bed at time of visit. Per nurse note, pt refused breakfast and lunch today. Pt on calorie count noted. Current Diet Order/ Nutrition Support pureed, nectar thin liquid Pertinent Medications D5-0.45ns, colace, novolog, megace Pertinent Labs 7/ K 3.0, glucose 106 Nutritional Hx/Data Height 5 ft 6 in Height (Calculated Centimeters) 167.6 Current Weight (lbs) 111 lb Weight (Calculated Kilograms) 50.3 Weight (Calculated Grams) 36840.8 [place] Body Weight 130 Body Mass Index (BMI) 17.9 Weight Status Underweight GI Symptoms GI Symptoms None Last BM none Skin Integrity/Comment: redness Estimated Nutritional Goals BEE in Kcals: Using Current wt Calories/Kcals/Kg 30-35 Kcals Calculated 8647-4882 Protein: Using Current wt Protein g/k.2 Protein Calculated 60 Fluid: ml 1500-1750ml (1ml/kcal) Nutritional Problem 1. Problem Problem inadequate food intake Etiology pt refusing to eat Signs/Symptoms: PO intake <25% since admission Malnutrition Alert Muscle Mass (Non-Severe) Mild Depletion Is there a minimum of two criteria No selected? Query Text:Check all the applicable criteria. A minimum of two criteria are recommended for diagnosis of either severe or non-severe malnutrition. Malnutrition Related to Morbid Obesity Malnutrition related to morbid obesity No Intervention/Recommendation Comments 1. Continue with current diet as ordered. Assist pt with meals and encourage oral intake. 2. Monitor PO intake, wt, labs and skin integrity 3. F/U as high risk in 2-3 days, 08/27-08/28 Expected Outcomes/Goals Expected Outcomes/Goals 1. PO intake to meet at least 75% of nutritional needs. 2. Wt stability, skin to remain intact, labs to approach WNL.
[2017-09-05] MEDS ORDERED: D5-0.45NS w/20 mEq KCL 1,000 ML IV SCH (12:45)
[2017-09-05] MEDS: Dextrose 10% 1,000 ML IV SCH (13:28)
[2017-09-05] MEDS: Levofloxacin 250mg/50mL 250 MG/50 ML BAG IV SCH (16:19)
[2017-09-06] MEDS: Dextrose 10% 1,000 ML IV SCH (06:32)
[2017-09-06 07:25] LABS: ALB/GLOB RATIO 1.1 (1.0-1.8); ALBUMIN 2.9 gm/dL (3.7-5.3); ALKALINE PHOSPHATASE 73 U/L (34-104); ANION GAP 8.5 (7.0-16.0); BILIRUBIN,TOTAL 1.1 mg/dL (0.3-1.0); BUN - UREA NITROGEN 7 mg/dL (7-25); CALCIUM SERUM 9.3 mg/dL (8.6-10.3); CARBON DIOXIDE 24.2 mEq/L (21.0-31.0); CHLORIDE 109 mEq/L (98-107); CREATININE - SERUM 0.8 mg/dL (0.6-1.2); GFR AFRICAN-AMERICAN > 60.0 ml/min (>90); GFR NON AFRICAN-AMERICAN > 60.0 ml/min; GLUCOSE 88 mg/dL (70-105); MAGNESIUM 1.6 mg/dL (1.9-2.7); PHOSPHOROUS 1.8 mg/dL (2.5-5.0); POTASSIUM SERUM 3.7 mEq/L (3.5-5.1); SGOT 10 U/L (13-39); SGPT/ALT 5 U/L (7-52); SODIUM SERUM 138 mEq/L (136-145); TOTAL PROTEIN,SERUM 5.5 gm/dL (6.0-8.3); TRIGLYCERIDES 112 mg/dL (<150)
[2017-09-06] MEDS: INSULIN ASPART SLIDING SCALE 100 UNITS/ML UNIT SUBQ SCH ×3 (08:37→16:17)
[2017-09-06] MEDS ORDERED: Sodium Phosphate 20 MMOLE in Sodium Chloride 0.9% 250 ML IV ONE ×2 (09:00→23:00)
[2017-09-06] MEDS: Ammonium Lactate Cream 140 gm Tube TP SCH ×2 (09:33→09:39)
[2017-09-06] MEDS: Lactobacillus Rhamnosus GG 15 Billion CFU CAP.SPRINK PO SCH (09:33)
--- NOTE | 2017-09-06 15:01 | Internal Medicine Prog Note ---
Internal Medicine Subjective - Subjective Service Date: 09/06/17 (patient pulled out IV ) Patient is:: awake, eyes closed, in bed, confused Patient Complaints of:: congestion Per staff patient has:: no adverse event, poor appetite, unstable gait, agitated , combative, refusing care, refusing labs Internal Medicine Objective - Results Result Diagrams: 09/05/17 05:50 09/06/17 06:46 Recent Labs: Laboratory Last Values WBC 5.8 Th/cmm (4.8-10.8) 09/05/17 05:50 RBC 3.54 Mil/cmm (3.80-5.20) L 09/05/17 05:50 Hgb 10.7 gm/dL (12-16) L 09/05/17 05:50 Hct 31.4 % (41.0-60) L 09/05/17 05:50 MCV 88.5 fl (81-100) 09/05/17 05:50 MCH 30.1 pg (27.0-31.0) 09/05/17 05:50 MCHC Differential 34.0 pg (28.0-36.0) 09/05/17 05:50 RDW 16.0 % (11.5-20.0) 09/05/17 05:50 Plt Count 197 Th/cmm (150-400) 09/05/17 05:50 MPV 9.4 fl 09/05/17 05:50 Neutrophils % 80.7 % (40.0-80.0) H 09/05/17 05:50 Lymphocytes % 13.1 % (20.0-50.0) L 09/05/17 05:50 Monocytes % 5.5 % (2.0-10.0) 09/05/17 05:50 Eosinophils % 0.6 % (0.0-5.0) 09/05/17 05:50 Basophils % 0.1 % (0.0-2.0) 09/05/17 05:50 Sodium 138 mEq/L (136-145) 09/06/17 06:46 Potassium 3.7 mEq/L (3.5-5.1) 09/06/17 06:46 Chloride 109 mEq/L (98-107) H 09/06/17 06:46 Carbon Dioxide 24.2 mEq/L (21.0-31.0) 09/06/17 06:46 Anion Gap 8.5 (7.0-16.0) 09/06/17 06:46 BUN 7 mg/dL (7-25) 09/06/17 06:46 Creatinine 0.8 mg/dL (0.6-1.2) 09/06/17 06:46 Est GFR ( Amer) > 60.0 ml/min (>90) 09/06/17 06:46 Est GFR (Non-Af Amer) > 60.0 ml/min 09/06/17 06:46 BUN/Creatinine Ratio 8.8 09/06/17 06:46 Glucose 88 mg/dL (70-105) 09/06/17 06:46 POC Glucose 83 MG/DL (70 - 105) 09/06/17 13:17 Calcium 9.3 mg/dL (8.6-10.3) 09/06/17 06:46 Phosphorus 1.8 mg/dL (2.5-5.0) L 09/06/17 06:46 Magnesium 1.6 mg/dL (1.9-2.7) L 09/06/17 06:46 Total Bilirubin 1.1 mg/dL (0.3-1.0) H 09/06/17 06:46 AST 10 U/L (13-39) L 09/06/17 06:46 ALT 5 U/L (7-52) L 09/06/17 06:46 Alkaline Phosphatase 73 U/L (34-104) 09/06/17 06:46 Ammonia 43 umol/L (16-53) 09/01/17 05:40 B-Natriuretic Peptide 86.7 pg/mL (5.0-100.0) 08/31/17 05:00 Total Protein 5.5 gm/dL (6.0-8.3) L 09/06/17 06:46 Albumin 2.9 gm/dL (3.7-5.3) L 09/06/17 06:46 Globulin 2.6 gm/dL 09/06/17 06:46 Albumin/Globulin Ratio 1.1 (1.0-1.8) 09/06/17 06:46 Triglycerides 112 mg/dL (<150) 09/06/17 06:46 Vitamin B12 790 pg/mL (232-1245) 09/01/17 05:40 Folic Acid 4.8 ng/mL (>3.0) 09/01/17 05:40 TSH 1.63 uIU/ml (0.34-5.60) 09/01/17 05:40 Urine Source [place] 08/29/17 13:45 Urine Color YELLOW 08/29/17 13:45 Urine Clarity SLIGHTLY [place] (CLEAR) 08/29/17 13:45 Urine pH 7.5 (4.6 - 8.0) 08/29/17 13:45 Ur Specific [place] 1.010 (1.005-1.030) 08/29/17 13:45 Urine Protein NEGATIVE mg/dL (NEGATIVE) 08/29/17 13:45 Urine Glucose (UA) NEGATIVE mg/dL (NEGATIVE) 08/29/17 13:45 Urine Ketones NEGATIVE mg/dL (NEGATIVE) 08/29/17 13:45 Urine Blood TRACE (NEGATIVE) 08/29/17 13:45 Urine Nitrate NEGATIVE (NEGATIVE) 08/29/17 13:45 Urine Bilirubin NEGATIVE (NEGATIVE) 08/29/17 13:45 Urine Urobilinogen 0.2 E.U./dL (0.2 - 1.0) 08/29/17 13:45 Ur Leukocyte Esterase NEGATIVE (NEGATIVE) 08/29/17 13:45 Urine RBC 0-2 /hpf (0-5) 08/29/17 13:45 Urine WBC 0-2 /hpf (0-5) 08/29/17 13:45 Ur Epithelial Cells OCCASIONAL /lpf (FEW) 08/29/17 13:45 Urine Bacteria FEW /hpf (NONE SEEN) 08/29/17 13:45 - Physical Exam Vitals and I&O: Vital Signs Temp 97.6 F 09/06/17 12:17 Pulse 71 09/06/17 12:17 Resp 17 09/06/17 12:17 BP 118/51 09/06/17 12:17 Pulse Ox 100 09/06/17 12:17 Intake & Output 09/05/17 09/06/17 09/06/17 18:59 06:59 18:59 Intake Total 1000 1080 Output Total 450 400 Balance 550 680 Weight (lbs) 101 lb 100 lb Intake: Intake, IV Amount 1000 1050 D5-0.45NS w/20 mEq KCL 1, 1000 000 ml @ 75 mls/hr IV . [id number] [facility] Rx#:[id number] Dextrose 10% 1,000 ml @ 1000 60 mls/hr IV .[id number] [facility] Rx#:[id number] Levofloxacin 250mg/50mL 50 250 mg In 50 ml @ 50 mls/ hr IV Q24H [facility] Rx#: [id number] Oral 0 Other 30 Output: Urine 450 400 Stool 0 Other: # Bowel Movements 0 0 Weight Source Bedscale Bedscale Active Medications: Current Medications Acetaminophen (Tylenol) 650 mg GT Q4HR PRN PRN Reason: Pain or Fever >101 Stop: 10/23/17 19:40 Acetaminophen/Hydrocodone Bitart ([employer] 5mg/325mg) 1 tab GT Q4HR PRN PRN Reason: Pain (Moderate) Stop: 10/23/17 19:40 Albuterol Sulfate (Albuterol 2.5mg/3ml Neb Ud) 2.5 mg HHN Q4HRT PRN PRN Reason: Shortness of Breath Stop: 10/23/17 19:40 Bisacodyl (Dulcolax 10 Mg Supp) 10 mg RC DAILY PRN PRN Reason: Constipation Stop: 10/23/17 19:40 Dextrose (D50w) 50 ml IVP PRN PRN; Protocol PRN Reason: hypoglycemia protocol Stop: 11/04/17 12:57 Docusate Sodium (Colace) 100 mg GT DAILY PRN PRN Reason: CONSTIPATION Stop: 10/24/17 08:59 Last Admin: 08/27/17 17:38 Dose: 100 mg Heparin Sodium (Porcine) (Heparin) 5,000 units SUBQ Q12HR [facility] Stop: 10/24/17 20:59 Last Admin: 09/06/17 09:35 Dose: Not Given Levofloxacin (Levaquin Pb) 250 mg in 50 mls @ 50 mls/hr IV Q24H [facility] Stop: 10/29/17 14:59 Last Infusion: 09/05/17 19:51 Dose: Infused Dextrose (Dextrose 10%) 1,000 mls @ 60 mls/hr IV .[id number] [facility] Stop: 09/06/17 16:00 Last Admin: 09/06/17 06:32 Dose: 60 mls/hr Multivitamins/Minerals 1 ml/ (Amino Acids) 1,440 mls @ 60 mls/hr IV .Q24H [facility] Stop: 11/05/17 15:59 Insulin Aspart (Novolog Insulin Sliding Scale) 0 units SUBQ ACHS [facility]; Protocol Stop: 10/23/17 20:59 Last Admin: 09/06/17 13:19 Dose: Not Given Ipratropium [place] (Atrovent Neb 0.5mg/2.5ml) 0.5 mg HHN Q4HRT PRN PRN Reason: Shortness of Breath or Wheeze Stop: 10/23/17 19:40 Lactic Acid (Lac-Hydrin Cream) 1 appl TP DAILY [facility] Stop: 10/24/17 08:59 Last Admin: 09/06/17 09:39 Dose: Not Given Lactobacillus Rhamnosus (Culturelle 15b) 1 each PO DAILY [facility] Stop: 10/29/17 08:59 Last Admin: 09/06/17 09:33 Dose: Not Given Lorazepam (Ativan) 0.5 mg PO Q6HR PRN; Protocol PRN Reason: Agitation Stop: 10/23/17 19:40 Magnesium Hydroxide (Milk Of Magnesia) 30 ml PO HS PRN PRN Reason: Constipation Stop: 10/23/17 19:40 Megestrol Acetate (Megace) 400 mg PO BID [facility] Stop: 10/24/17 08:59 Last Admin: 09/06/17 09:33 Dose: Not Given Mirtazapine (Remeron) 15 mg PO HS [facility]; Protocol Stop: 10/30/17 20:59 Last Admin: 09/04/17 20:46 Dose: Not Given Miscellaneous (Vte Chemical Prophylaxis Screen/ Admission) 1 ea MC PRN PRN PRN Reason: PROTOCOL Stop: 10/24/17 09:26 Miscellaneous (Probiotic Screen) 1 ea MC PRN PRN PRN Reason: PROTOCOL Stop: 10/29/17 08:59 Miscellaneous (Ppn Per Pharmacy) 1 ea MC PRN PRN PRN Reason: PROTOCOL Stop: 11/04/17 12:41 Olanzapine (Zyprexa) 5 mg PO HS [facility]; Protocol Stop: 10/23/17 20:59 Last Admin: 09/04/17 20:46 Dose: Not Given Sodium Phosphate (Fleet Enema) 135 ml RC DAILY PRN PRN Reason: Constipation Stop: 10/23/17 19:40 Zolpidem Tartrate (Ambien) 5 mg PO HS PRN PRN Reason: Insomnia Stop: 10/23/17 19:40 General: demented, disheveled, thin, cachectic HEENT: NC/AT, PERRLA Neck: Supple, No JVD, No LAD Lungs: congested, chest deformity present Cardiovascular: RRR, Normal S1, Normal S2, with murmur Abdomen: soft, non-tender, thin, positive bowel sound Extremities: excoriation, contracture, deformity Neurological: disorganized, muscle weakness, unable to follow command - Procedures Procedures: Procedures Procedure Code Date RECREATIONAL THERAPY 93.81 11/09/10 Internal Medicine Assmt/Plan - Assessment Assessment: Failure to thrive poor p.o. intake severe protein-caloric malnutrition diabetes congestive heart failure acute on chronic renal insufficiency schizoaffective disorder hypertension hypokalemia dementia legally blind leukocytosis bedbound. noncompliant - Plan Plan: PPN TO START TODAY conservator is currently on vacation and consent for peg pending. ivf for hydration monitor electrolytes continue current plan of care Nutritional Asmnt/Malnutr-PDOC - Dietary Evaluation Malnutrition Findings (Please click <Entered> for more info): Nutritional Asmnt/Malnutrition Start: 08/25/17 17: 28 Text: Status: Complete Freq: Protocol: Document 08/25/17 17:28 LCHENG (Rec: 08/25/17 17:32 LCHENG [email or web address]) Nutritional Asmnt/Malnutrition Patient General Information Nutritional Screening High Risk Consult Diagnosis dehydration, FTT Pertinent Medical Hx/Surgical Hx DM, CHF, kidney failure, schizophrenia, HTN, dementia, legally blind, noncompliance Subjective Information Consult received for poor oral intake. Pt seen resting in bed at time of visit. Per nurse note, pt refused breakfast and lunch today. Pt on calorie count noted. Current Diet Order/ Nutrition Support pureed, nectar thin liquid Pertinent Medications D5-0.45ns, colace, novolog, megace Pertinent Labs 7/2 K 3.0, glucose 106 Nutritional Hx/Data Height 5 ft 6 in Height (Calculated Centimeters) 167.6 Current Weight (lbs) 111 lb Weight (Calculated Kilograms) 50.3 Weight (Calculated Grams) 98539.8 [place] Body Weight 130 Body Mass Index (BMI) 17.9 Weight Status Underweight GI Symptoms GI Symptoms None Last BM none Skin Integrity/Comment: redness Estimated Nutritional Goals BEE in Kcals: Using Current wt Calories/Kcals/Kg 30-35 Kcals Calculated 6558-2513 Protein: Using Current wt Protein g/k.2 Protein Calculated 60 Fluid: ml 1500-1750ml (1ml/kcal) Nutritional Problem 1. Problem Problem inadequate food intake Etiology pt refusing to eat Signs/Symptoms: PO intake <25% since admission Malnutrition Alert Muscle Mass (Non-Severe) Mild Depletion Is there a minimum of two criteria No selected? Query Text:Check all the applicable criteria. A minimum of two criteria are recommended for diagnosis of either severe or non-severe malnutrition. Malnutrition Related to Morbid Obesity Malnutrition related to morbid obesity No Intervention/Recommendation Comments 1. Continue with current diet as ordered. Assist pt with meals and encourage oral intake. 2. Monitor PO intake, wt, labs and skin integrity 3. F/U as high risk in 2-3 days, 08/27-08/28 Expected Outcomes/Goals Expected Outcomes/Goals 1. PO intake to meet at least 75% of nutritional needs. 2. Wt stability, skin to remain intact, labs to approach WNL.
[2017-09-06] MEDS: Levofloxacin 250mg/50mL 250 MG/50 ML BAG IV SCH (15:20)
[2017-09-06] MEDS: AMINO ACIDS IV SCH (16:54)
[2017-09-06] MEDS: DEXT 10% IV SCH (16:54)
[2017-09-06] MEDS: MULTIVITAMIN IV SCH (16:54)
[2017-09-06] MEDS ORDERED: Mag Sulfate 2gm/50mL Premix 2 GM/50 ML BAG IV ONE (23:00)
[2017-09-07] MEDS: INSULIN ASPART SLIDING SCALE 100 UNITS/ML UNIT SUBQ SCH ×5 (01:37→20:55)
[2017-09-07 06:44] LABS: ANION GAP 9.2 (7.0-16.0); BUN - UREA NITROGEN 10 mg/dL (7-25); CALCIUM SERUM 9.4 mg/dL (8.6-10.3); CARBON DIOXIDE 27.3 mEq/L (21.0-31.0); CHLORIDE 109 mEq/L (98-107); CREATININE - SERUM 0.8 mg/dL (0.6-1.2); GFR AFRICAN-AMERICAN > 60.0 ml/min (>90); GFR NON AFRICAN-AMERICAN > 60.0 ml/min; GLUCOSE 126 mg/dL (70-105); MAGNESIUM 2.7 mg/dL (1.9-2.7); PHOSPHOROUS 3.2 mg/dL (2.5-5.0); POTASSIUM SERUM 4.5 mEq/L (3.5-5.1); SODIUM SERUM 141 mEq/L (136-145)
[2017-09-07] MEDS: Ammonium Lactate Cream 140 gm Tube TP SCH (08:18)
[2017-09-07] MEDS: Lactobacillus Rhamnosus GG 15 Billion CFU CAP.SPRINK PO SCH (08:19)
[2017-09-07] MEDS ORDERED: Sodium Phosphate 20 MMOLE in Sodium Chloride 0.9% 250 ML IV ONE (09:00)
--- NOTE | 2017-09-07 15:54 | Internal Medicine Prog Note ---
Internal Medicine Subjective - Subjective Service Date: 09/07/17 (currently on ppn ) Patient is:: awake, eyes closed, in bed, confused Patient Complaints of:: congestion Per staff patient has:: no adverse event, poor appetite, unstable gait, agitated , combative, refusing care, refusing labs Internal Medicine Objective - Results Result Diagrams: 09/05/17 05:50 09/07/17 06:13 Recent Labs: Laboratory Last Values WBC 5.8 Th/cmm (4.8-10.8) 09/05/17 05:50 RBC 3.54 Mil/cmm (3.80-5.20) L 09/05/17 05:50 Hgb 10.7 gm/dL (12-16) L 09/05/17 05:50 Hct 31.4 % (41.0-60) L 09/05/17 05:50 MCV 88.5 fl (81-100) 09/05/17 05:50 MCH 30.1 pg (27.0-31.0) 09/05/17 05:50 MCHC Differential 34.0 pg (28.0-36.0) 09/05/17 05:50 RDW 16.0 % (11.5-20.0) 09/05/17 05:50 Plt Count 197 Th/cmm (150-400) 09/05/17 05:50 MPV 9.4 fl 09/05/17 05:50 Neutrophils % 80.7 % (40.0-80.0) H 09/05/17 05:50 Lymphocytes % 13.1 % (20.0-50.0) L 09/05/17 05:50 Monocytes % 5.5 % (2.0-10.0) 09/05/17 05:50 Eosinophils % 0.6 % (0.0-5.0) 09/05/17 05:50 Basophils % 0.1 % (0.0-2.0) 09/05/17 05:50 Sodium 141 mEq/L (136-145) 09/07/17 06:13 Potassium 4.5 mEq/L (3.5-5.1) 09/07/17 06:13 Chloride 109 mEq/L (98-107) H 09/07/17 06:13 Carbon Dioxide 27.3 mEq/L (21.0-31.0) 09/07/17 06:13 Anion Gap 9.2 (7.0-16.0) 09/07/17 06:13 BUN 10 mg/dL (7-25) 09/07/17 06:13 Creatinine 0.8 mg/dL (0.6-1.2) 09/07/17 06:13 Est GFR ( Amer) > 60.0 ml/min (>90) 09/07/17 06:13 Est GFR (Non-Af Amer) > 60.0 ml/min 09/07/17 06:13 BUN/Creatinine Ratio 12.5 09/07/17 06:13 Glucose 126 mg/dL (70-105) H 09/07/17 06:13 POC Glucose 101 MG/DL (70 - 105) 09/07/17 11:21 Calcium 9.4 mg/dL (8.6-10.3) 09/07/17 06:13 Phosphorus 3.2 mg/dL (2.5-5.0) 09/07/17 06:13 Magnesium 2.7 mg/dL (1.9-2.7) 09/07/17 06:13 Total Bilirubin 1.1 mg/dL (0.3-1.0) H 09/06/17 06:46 AST 10 U/L (13-39) L 09/06/17 06:46 ALT 5 U/L (7-52) L 09/06/17 06:46 Alkaline Phosphatase 73 U/L (34-104) 09/06/17 06:46 Ammonia 43 umol/L (16-53) 09/01/17 05:40 B-Natriuretic Peptide 86.7 pg/mL (5.0-100.0) 08/31/17 05:00 Total Protein 5.5 gm/dL (6.0-8.3) L 09/06/17 06:46 Albumin 2.9 gm/dL (3.7-5.3) L 09/06/17 06:46 Globulin 2.6 gm/dL 09/06/17 06:46 Albumin/Globulin Ratio 1.1 (1.0-1.8) 09/06/17 06:46 Triglycerides 112 mg/dL (<150) 09/06/17 06:46 Vitamin B12 790 pg/mL (232-1245) 09/01/17 05:40 Folic Acid 4.8 ng/mL (>3.0) 09/01/17 05:40 TSH 1.63 uIU/ml (0.34-5.60) 09/01/17 05:40 Urine Source [place] 08/29/17 13:45 Urine Color YELLOW 08/29/17 13:45 Urine Clarity SLIGHTLY HAZY (CLEAR) 08/29/17 13:45 Urine pH 7.5 (4.6 - 8.0) 08/29/17 13:45 Ur Specific [place] 1.010 (1.005-1.030) 08/29/17 13:45 Urine Protein NEGATIVE mg/dL (NEGATIVE) 08/29/17 13:45 Urine Glucose (UA) NEGATIVE mg/dL (NEGATIVE) 08/29/17 13:45 Urine Ketones NEGATIVE mg/dL (NEGATIVE) 08/29/17 13:45 Urine Blood TRACE (NEGATIVE) 08/29/17 13:45 Urine Nitrate NEGATIVE (NEGATIVE) 08/29/17 13:45 Urine Bilirubin NEGATIVE (NEGATIVE) 08/29/17 13:45 Urine Urobilinogen 0.2 E.U./dL (0.2 - 1.0) 08/29/17 13:45 Ur Leukocyte Esterase NEGATIVE (NEGATIVE) 08/29/17 13:45 Urine RBC 0-2 /hpf (0-5) 08/29/17 13:45 Urine WBC 0-2 /hpf (0-5) 08/29/17 13:45 Ur Epithelial Cells OCCASIONAL /lpf (FEW) 08/29/17 13:45 Urine Bacteria FEW /hpf (NONE SEEN) 08/29/17 13:45 - Physical Exam Vitals and I&O: Vital Signs Temp 96.8 F 09/07/17 12:33 Pulse 80 09/07/17 12:33 Resp 18 09/07/17 12:33 BP 128/70 09/07/17 12:33 Pulse Ox 97 09/07/17 12:33 Intake & Output 09/06/17 09/07/17 09/07/17 18:59 06:59 18:59 Intake Total 10 Output Total 1450 1000 Balance -1440 -1000 Weight (lbs) 100 lb 101 lb Intake: Oral 10 Output: Urine 1450 1000 Other: # Bowel Movements 0 0 Weight Source Bedscale Bedscale Active Medications: Current Medications Acetaminophen (Tylenol) 650 mg GT Q4HR PRN PRN Reason: Pain or Fever >101 Stop: 10/23/17 19:40 Albuterol Sulfate (Albuterol 2.5mg/3ml Neb Ud) 2.5 mg HHN Q4HRT PRN PRN Reason: Shortness of Breath Stop: 10/23/17 19:40 Bisacodyl (Dulcolax 10 Mg Supp) 10 mg RC DAILY PRN PRN Reason: Constipation Stop: 10/23/17 19:40 Dextrose (D50w) 50 ml IVP PRN PRN; Protocol PRN Reason: hypoglycemia protocol Stop: 11/04/17 12:57 Docusate Sodium (Colace) 100 mg GT DAILY PRN PRN Reason: CONSTIPATION Stop: 10/24/17 08:59 Last Admin: 08/27/17 17:38 Dose: 100 mg Heparin Sodium (Porcine) (Heparin) 5,000 units SUBQ Q12HR FOZIA Stop: 10/24/17 20:59 Last Admin: 09/07/17 08:19 Dose: Not Given Multivitamins/Minerals 1 ml/ (Amino Acids) 1,440 mls @ 60 mls/hr IV .Q24H FOZIA Stop: 11/05/17 15:59 Last Admin: 09/06/17 16:54 Dose: 60 mls/hr Insulin Aspart (Novolog Insulin Sliding Scale) 0 units SUBQ ACHS FOZIA; Protocol Stop: 10/23/17 20:59 Last Admin: 09/07/17 12:03 Dose: Not Given Ipratropium [place] (Atrovent Neb 0.5mg/2.5ml) 0.5 mg HHN Q4HRT PRN PRN Reason: Shortness of Breath or Wheeze Stop: 10/23/17 19:40 Lactic Acid (Lac-Hydrin Cream) 1 appl TP DAILY FOZIA Stop: 10/24/17 08:59 Last Admin: 09/07/17 08:18 Dose: 1 appl Lactobacillus Rhamnosus (Culturelle 15b) 1 each PO DAILY FOZIA Stop: 10/29/17 08:59 Last Admin: 09/07/17 08:19 Dose: Not Given Lorazepam (Ativan) 0.5 mg PO Q6HR PRN; Protocol PRN Reason: Agitation Stop: 10/23/17 19:40 Magnesium Hydroxide (Milk Of Magnesia) 30 ml PO HS PRN PRN Reason: Constipation Stop: 10/23/17 19:40 Megestrol Acetate (Megace) 400 mg PO BID FOZIA Stop: 10/24/17 08:59 Last Admin: 09/07/17 08:19 Dose: Not Given Mirtazapine (Remeron) 15 mg PO HS FOZIA; Protocol Stop: 10/30/17 20:59 Last Admin: 09/07/17 01:36 Dose: Not Given Miscellaneous (Vte Chemical Prophylaxis Screen/ Admission) 1 ea PRN PRN PRN Reason: PROTOCOL Stop: 10/24/17 09:26 Miscellaneous (Probiotic Screen) 1 ea PRN PRN PRN Reason: PROTOCOL Stop: 10/29/17 08:59 Miscellaneous (Ppn Per Pharmacy) 1 ea PRN PRN PRN Reason: PROTOCOL Stop: 11/04/17 12:41 Olanzapine (Zyprexa) 5 mg PO HS FOZIA; Protocol Stop: 10/23/17 20:59 Last Admin: 09/07/17 01:37 Dose: Not Given Sodium Phosphate (Fleet Enema) 135 ml RC DAILY PRN PRN Reason: Constipation Stop: 10/23/17 19:40 Zolpidem Tartrate (Ambien) 5 mg PO HS PRN PRN Reason: Insomnia Stop: 10/23/17 19:40 General: demented, disheveled, thin, cachectic HEENT: NC/AT, PERRLA Neck: Supple, No JVD, No LAD Lungs: congested, chest deformity present Cardiovascular: RRR, Normal S1, Normal S2, with murmur Abdomen: soft, non-tender, thin, positive bowel sound Extremities: excoriation, contracture, deformity Neurological: disorganized, muscle weakness, unable to follow command - Procedures Procedures: Procedures Procedure Code Date RECREATIONAL THERAPY 93.81 11/09/10 Internal Medicine Assmt/Plan - Assessment Assessment: Failure to thrive poor p.o. intake severe protein-caloric malnutrition diabetes congestive heart failure acute on chronic renal insufficiency schizoaffective disorder hypertension hypokalemia dementia legally blind leukocytosis bedbound. noncompliant - Plan Plan: continue with PPn for nutritional support conservator is currently on vacation and consent for peg pending. ivf for hydration monitor electrolytes continue current plan of care Nutritional Asmnt/Malnutr-PDOC - Dietary Evaluation Malnutrition Findings (Please click <Entered> for more info): Nutritional Asmnt/Malnutrition Start: 08/25/17 17: 28 Text: Status: Complete Freq: Protocol: Document 08/25/17 17:28 REDD (Rec: 08/25/17 17:32 REDD [email or web address]) Nutritional Asmnt/Malnutrition Patient General Information Nutritional Screening High Risk Consult Diagnosis dehydration, FTT Pertinent Medical Hx/Surgical Hx DM, CHF, kidney failure, schizophrenia, HTN, dementia, legally blind, noncompliance Subjective Information Consult received for poor oral intake. Pt seen resting in bed at time of visit. Per nurse note, pt refused breakfast and lunch today. Pt on calorie count noted. Current Diet Order/ Nutrition Support pureed, nectar thin liquid Pertinent Medications D5-0.45ns, colace, novolog, megace Pertinent Labs 08/25 K 3.0, glucose 106 Nutritional Hx/Data Height 5 ft 6 in Height (Calculated Centimeters) 167.6 Current Weight (lbs) 111 lb Weight (Calculated Kilograms) 50.3 Weight (Calculated Grams) 51688.8 [place] Body Weight 130 Body Mass Index (BMI) 17.9 Weight Status Underweight GI Symptoms GI Symptoms None Last BM none Skin Integrity/Comment: redness Estimated Nutritional Goals BEE in Kcals: Using Current wt Calories/Kcals/Kg 30-35 Kcals Calculated 0789-1203 Protein: Using Current wt Protein g/k.2 Protein Calculated 60 Fluid: ml 1500-1750ml (1ml/kcal) Nutritional Problem 1. Problem Problem inadequate food intake Etiology pt refusing to eat Signs/Symptoms: PO intake <25% since admission Malnutrition Alert Muscle Mass (Non-Severe) Mild Depletion Is there a minimum of two criteria No selected? Query Text:Check all the applicable criteria. A minimum of two criteria are recommended for diagnosis of either severe or non-severe malnutrition. Malnutrition Related to Morbid Obesity Malnutrition related to morbid obesity No Intervention/Recommendation Comments 1. Continue with current diet as ordered. Assist pt with meals and encourage oral intake. 2. Monitor PO intake, wt, labs and skin integrity 3. F/U as high risk in 2-3 days, 08/27-08/28 Expected Outcomes/Goals Expected Outcomes/Goals 1. PO intake to meet at least 75% of nutritional needs. 2. Wt stability, skin to remain intact, labs to approach WNL.
[2017-09-07] MEDS: MULTIVITAMIN IV SCH (16:13)
[2017-09-07] MEDS: AMINO ACIDS IV SCH (16:13)
[2017-09-07] MEDS: DEXT 10% IV SCH (16:13)
[2017-09-08 06:27] LABS: % BASOPHILS 0.1 % (0.0-2.0); % EOSINOPHILS 0.4 % (0.0-5.0); % LYMPHOCYTES 15.5 % (20.0-50.0); % MONOCYTES 6.4 % (2.0-10.0); % NEUTROPHILS 77.6 % (40.0-80.0); HEMATOCRIT 30.1 % (41.0-60); HEMOGLOBIN 10.2 gm/dL (12-16); LYMPHOCYTE ABSOLUTE 0.9 Th/cmm (1.5-3.0); MEAN CELL VOLUME 88.7 fl (81-100); MEAN CORPUSCULAR HGB CONC 33.8 pg (28.0-36.0); MEAN PLATELET VOLUME 10.4 fl; MONOCYTE ABSOLUTE 0.4 Th/cmm (0.3-1.0); NEUTROPHILE ABSOLUTE 4.5 Th/cmm (1.8-8.0); PLATELET COUNT 162 Th/cmm (150-400); RED BLOOD COUNT 3.39 Mil/cmm (3.80-5.20); RED CELL DISTRIBUTION WIDTH 16.2 % (11.5-20.0); WHITE BLOOD COUNT 5.8 Th/cmm (4.8-10.8)
[2017-09-08 06:44] LABS: ANION GAP 11.2 (7.0-16.0); BUN - UREA NITROGEN 16 mg/dL (7-25); CALCIUM SERUM 9.2 mg/dL (8.6-10.3); CARBON DIOXIDE 25.6 mEq/L (21.0-31.0); CHLORIDE 109 mEq/L (98-107); CREATININE - SERUM 0.7 mg/dL (0.6-1.2); GFR AFRICAN-AMERICAN > 60.0 ml/min (>90); GFR NON AFRICAN-AMERICAN > 60.0 ml/min; GLUCOSE 97 mg/dL (70-105); MAGNESIUM 2.3 mg/dL (1.9-2.7); POTASSIUM SERUM 3.8 mEq/L (3.5-5.1); SODIUM SERUM 142 mEq/L (136-145)
[2017-09-08] MEDS: INSULIN ASPART SLIDING SCALE 100 UNITS/ML UNIT SUBQ SCH ×3 (07:19→21:28)
[2017-09-08] MEDS: Lactobacillus Rhamnosus GG 15 Billion CFU CAP.SPRINK PO SCH (09:29)
[2017-09-08] MEDS: Ammonium Lactate Cream 140 gm Tube TP SCH (09:29)
[2017-09-08 09:46] LABS: ALB/GLOB RATIO 1.2 (1.0-1.8); ALBUMIN 3.1 gm/dL (3.7-5.3); BILIRUBIN,DIRECT 0.14 mg/dL (0.0-0.2); BILIRUBIN,TOTAL 0.8 mg/dL (0.3-1.0); TOTAL PROTEIN,SERUM 5.7 gm/dL (6.0-8.3)
--- NOTE | 2017-09-08 12:20 | Internal Medicine Prog Note ---
Internal Medicine Subjective - Subjective Service Date: 09/08/17 Patient is:: awake, eyes closed, in bed, confused Patient Complaints of:: congestion Per staff patient has:: no adverse event, poor appetite, unstable gait, agitated , combative, refusing care, refusing labs Internal Medicine Objective - Results Result Diagrams: 09/08/17 05:35 09/08/17 05:35 Recent Labs: Laboratory Last Values WBC 5.8 Th/cmm (4.8-10.8) 09/08/17 05:35 RBC 3.39 Mil/cmm (3.80-5.20) L 09/08/17 05:35 Hgb 10.2 gm/dL (12-16) L 09/08/17 05:35 Hct 30.1 % (41.0-60) L 09/08/17 05:35 MCV 88.7 fl (81-100) 09/08/17 05:35 MCH 30.0 pg (27.0-31.0) 09/08/17 05:35 MCHC Differential 33.8 pg (28.0-36.0) 09/08/17 05:35 RDW 16.2 % (11.5-20.0) 09/08/17 05:35 Plt Count 162 Th/cmm (150-400) 09/08/17 05:35 MPV 10.4 fl 09/08/17 05:35 Neutrophils % 77.6 % (40.0-80.0) 09/08/17 05:35 Lymphocytes % 15.5 % (20.0-50.0) L 09/08/17 05:35 Monocytes % 6.4 % (2.0-10.0) 09/08/17 05:35 Eosinophils % 0.4 % (0.0-5.0) 09/08/17 05:35 Basophils % 0.1 % (0.0-2.0) 09/08/17 05:35 Sodium 142 mEq/L (136-145) 09/08/17 05:35 Potassium 3.8 mEq/L (3.5-5.1) 09/08/17 05:35 Chloride 109 mEq/L (98-107) H 09/08/17 05:35 Carbon Dioxide 25.6 mEq/L (21.0-31.0) 09/08/17 05:35 Anion Gap 11.2 (7.0-16.0) 09/08/17 05:35 BUN 16 mg/dL (7-25) 09/08/17 05:35 Creatinine 0.7 mg/dL (0.6-1.2) 09/08/17 05:35 Est GFR ( Amer) > 60.0 ml/min (>90) 09/08/17 05:35 Est GFR (Non-Af Amer) > 60.0 ml/min 09/08/17 05:35 BUN/Creatinine Ratio 22.9 09/08/17 05:35 Glucose 97 mg/dL (70-105) 09/08/17 05:35 POC Glucose 105 MG/DL (70 - 105) 09/07/17 20:43 Calcium 9.2 mg/dL (8.6-10.3) 09/08/17 05:35 Phosphorus 3.0 mg/dL (2.5-5.0) 09/08/17 05:35 Magnesium 2.3 mg/dL (1.9-2.7) 09/08/17 05:35 Total Bilirubin 0.8 mg/dL (0.3-1.0) 09/08/17 05:35 Direct Bilirubin 0.14 mg/dL (0.0-0.2) 09/08/17 05:35 AST 9 U/L (13-39) L 09/08/17 05:35 ALT 7 U/L (7-52) 09/08/17 05:35 Alkaline Phosphatase 68 U/L (34-104) 09/08/17 05:35 Ammonia 43 umol/L (16-53) 09/01/17 05:40 B-Natriuretic Peptide 86.7 pg/mL (5.0-100.0) 08/31/17 05:00 Total Protein 5.7 gm/dL (6.0-8.3) L 09/08/17 05:35 Albumin 3.1 gm/dL (3.7-5.3) L 09/08/17 05:35 Globulin 2.6 gm/dL 09/08/17 05:35 Albumin/Globulin Ratio 1.2 (1.0-1.8) 09/08/17 05:35 Triglycerides 114 mg/dL (<150) 09/08/17 05:35 Cholesterol 189 mg/dL (<200) 09/08/17 05:35 Vitamin B12 790 pg/mL (232-1245) 09/01/17 05:40 Folic Acid 4.8 ng/mL (>3.0) 09/01/17 05:40 TSH 1.63 uIU/ml (0.34-5.60) 09/01/17 05:40 Urine Source [place] 08/29/17 13:45 Urine Color YELLOW 08/29/17 13:45 Urine Clarity SLIGHTLY HAZY (CLEAR) 08/29/17 13:45 Urine pH 7.5 (4.6 - 8.0) 08/29/17 13:45 Ur Specific [place] 1.010 (1.005-1.030) 08/29/17 13:45 Urine Protein NEGATIVE mg/dL (NEGATIVE) 08/29/17 13:45 Urine Glucose (UA) NEGATIVE mg/dL (NEGATIVE) 08/29/17 13:45 Urine Ketones NEGATIVE mg/dL (NEGATIVE) 08/29/17 13:45 Urine Blood TRACE (NEGATIVE) 08/29/17 13:45 Urine Nitrate NEGATIVE (NEGATIVE) 08/29/17 13:45 Urine Bilirubin NEGATIVE (NEGATIVE) 08/29/17 13:45 Urine Urobilinogen 0.2 E.U./dL (0.2 - 1.0) 08/29/17 13:45 Ur Leukocyte Esterase NEGATIVE (NEGATIVE) 08/29/17 13:45 Urine RBC 0-2 /hpf (0-5) 08/29/17 13:45 Urine WBC 0-2 /hpf (0-5) 08/29/17 13:45 Ur Epithelial Cells OCCASIONAL /lpf (FEW) 08/29/17 13:45 Urine Bacteria FEW /hpf (NONE SEEN) 08/29/17 13:45 - Physical Exam Vitals and I&O: Vital Signs Temp 97.4 F 09/08/17 12:00 Pulse 61 09/08/17 12:00 Resp 18 09/08/17 12:00 BP 137/81 09/08/17 12:00 Pulse Ox 96 09/08/17 12:00 Intake & Output 09/07/17 09/08/17 09/08/17 18:59 06:59 18:59 Intake Total 2119 0 Output Total 1850 700 Balance 269 -700 Weight (lbs) 101 lb 98 lb 14.4 oz Intake: Intake, IV Amount 1399 Multivitamin Inj 1 ml In 1399 Amino Acids 4.25% /Dext 10% 1,439 ml @ 60 mls/hr IV .Q24H [facility] Rx#: [id number] Oral 0 0 TPN/PPN 720 Output: Urine 1850 700 Other: # Bowel Movements 0 0 Weight Source Bedscale Bedscale Active Medications: Current Medications Acetaminophen (Tylenol) 650 mg GT Q4HR PRN PRN Reason: Pain or Fever >101 Stop: 10/23/17 19:40 Albuterol Sulfate (Albuterol 2.5mg/3ml Neb Ud) 2.5 mg HHN Q4HRT PRN PRN Reason: Shortness of Breath Stop: 10/23/17 19:40 Bisacodyl (Dulcolax 10 Mg Supp) 10 mg RC DAILY PRN PRN Reason: Constipation Stop: 10/23/17 19:40 Dextrose (D50w) 50 ml IVP PRN PRN; Protocol PRN Reason: hypoglycemia protocol Stop: 11/04/17 12:57 Docusate Sodium (Colace) 100 mg GT DAILY PRN PRN Reason: CONSTIPATION Stop: 10/24/17 08:59 Last Admin: 08/27/17 17:38 Dose: 100 mg Heparin Sodium (Porcine) (Heparin) 5,000 units SUBQ Q12HR FOZIA Stop: 10/24/17 20:59 Last Admin: 09/08/17 09:29 Dose: Not Given Multivitamins/Minerals 1 ml/ (Amino Acids) 1,440 mls @ 60 mls/hr IV .Q24H [facility] Stop: 11/05/17 15:59 Last Admin: 09/07/17 16:13 Dose: 60 mls/hr Insulin Aspart (Novolog Insulin Sliding Scale) 0 units SUBQ ACHS FOZIA; Protocol Stop: 10/23/17 20:59 Last Admin: 09/08/17 11:22 Dose: Not Given Ipratropium [place] (Atrovent Neb 0.5mg/2.5ml) 0.5 mg HHN Q4HRT PRN PRN Reason: Shortness of Breath or Wheeze Stop: 10/23/17 19:40 Lactic Acid (Lac-Hydrin Cream) 1 appl TP DAILY FOZIA Stop: 10/24/17 08:59 Last Admin: 09/08/17 09:29 Dose: 1 appl Lactobacillus Rhamnosus (Culturelle 15b) 1 each PO DAILY FOZIA Stop: 10/29/17 08:59 Last Admin: 09/08/17 09:29 Dose: Not Given Lorazepam (Ativan) 0.5 mg PO Q6HR PRN; Protocol PRN Reason: Agitation Stop: 10/23/17 19:40 Magnesium Hydroxide (Milk Of Magnesia) 30 ml PO HS PRN PRN Reason: Constipation Stop: 10/23/17 19:40 Megestrol Acetate (Megace) 400 mg PO BID FOZIA Stop: 10/24/17 08:59 Last Admin: 09/08/17 09:29 Dose: Not Given Mirtazapine (Remeron) 15 mg PO HS [facility]; Protocol Stop: 10/30/17 20:59 Last Admin: 09/07/17 21:11 Dose: Not Given Miscellaneous (Vte Chemical Prophylaxis Screen/ Admission) 1 ea PRN PRN PRN Reason: PROTOCOL Stop: 10/24/17 09:26 Miscellaneous (Probiotic Screen) 1 ea PRN PRN PRN Reason: PROTOCOL Stop: 10/29/17 08:59 Miscellaneous (Ppn Per Pharmacy) 1 ea PRN PRN PRN Reason: PROTOCOL Stop: 11/04/17 12:41 Olanzapine (Zyprexa) 5 mg PO HS [facility]; Protocol Stop: 10/23/17 20:59 Last Admin: 09/07/17 21:12 Dose: Not Given Sodium Phosphate (Fleet Enema) 135 ml RC DAILY PRN PRN Reason: Constipation Stop: 10/23/17 19:40 Zolpidem Tartrate (Ambien) 5 mg PO HS PRN PRN Reason: Insomnia Stop: 10/23/17 19:40 General: demented, disheveled, thin, cachectic HEENT: NC/AT, PERRLA Neck: Supple, No JVD, No LAD Lungs: congested, chest deformity present Cardiovascular: RRR, Normal S1, Normal S2, with murmur Abdomen: soft, non-tender, thin, positive bowel sound Extremities: excoriation, contracture, deformity Neurological: disorganized, muscle weakness, unable to follow command - Procedures Procedures: Procedures Procedure Code Date RECREATIONAL THERAPY 93.81 11/09/10 Internal Medicine Assmt/Plan - Assessment Assessment: Failure to thrive poor p.o. intake severe protein-caloric malnutrition diabetes congestive heart failure acute on chronic renal insufficiency schizoaffective disorder hypertension hypokalemia dementia legally blind leukocytosis bedbound. noncompliant - Plan Plan: continue with PPn for nutritional support conservator is currently on vacation and consent for peg pending. ivf for hydration monitor electrolytes continue current plan of care Nutritional Asmnt/Malnutr-PDOC - Dietary Evaluation Malnutrition Findings (Please click <Entered> for more info): Nutritional Asmnt/Malnutrition Start: 08/25/17 17: 28 Text: Status: Complete Freq: Protocol: Document 08/25/17 17:28 [email or web address] (Rec: 08/25/17 17:32 [email or web address] [email or web address]) Nutritional Asmnt/Malnutrition Patient General Information Nutritional Screening High Risk Consult Diagnosis dehydration, FTT Pertinent Medical Hx/Surgical Hx DM, CHF, kidney failure, schizophrenia, HTN, dementia, legally blind, noncompliance Subjective Information Consult received for poor oral intake. Pt seen resting in bed at time of visit. Per nurse note, pt refused breakfast and lunch today. Pt on calorie count noted. Current Diet Order/ Nutrition Support pureed, nectar thin liquid Pertinent Medications D5-0.45ns, colace, novolog, megace Pertinent Labs 7/2 K 3.0, glucose 106 Nutritional Hx/Data Height 5 ft 6 in Height (Calculated Centimeters) 167.6 Current Weight (lbs) 111 lb Weight (Calculated Kilograms) 50.3 Weight (Calculated Grams) 01452.8 [place] Body Weight 130 Body Mass Index (BMI) 17.9 Weight Status Underweight GI Symptoms GI Symptoms None Last BM none Skin Integrity/Comment: redness Estimated Nutritional Goals BEE in Kcals: Using Current wt Calories/Kcals/Kg 30-35 Kcals Calculated 9354-6275 Protein: Using Current wt Protein g/k.2 Protein Calculated 60 Fluid: ml 1500-1750ml (1ml/kcal) Nutritional Problem 1. Problem Problem inadequate food intake Etiology pt refusing to eat Signs/Symptoms: PO intake <25% since admission Malnutrition Alert Muscle Mass (Non-Severe) Mild Depletion Is there a minimum of two criteria No selected? Query Text:Check all the applicable criteria. A minimum of two criteria are recommended for diagnosis of either severe or non-severe malnutrition. Malnutrition Related to Morbid Obesity Malnutrition related to morbid obesity No Intervention/Recommendation Comments 1. Continue with current diet as ordered. Assist pt with meals and encourage oral intake. 2. Monitor PO intake, wt, labs and skin integrity 3. F/U as high risk in 2-3 days, 08/27-08/28 Expected Outcomes/Goals Expected Outcomes/Goals 1. PO intake to meet at least 75% of nutritional needs. 2. Wt stability, skin to remain intact, labs to approach WNL.
[2017-09-08] MEDS: MULTIVITAMIN IV SCH (16:18)
[2017-09-08] MEDS: DEXT 10% IV SCH (16:18)
[2017-09-08] MEDS: AMINO ACIDS IV SCH (16:18)
[2017-09-09 05:25] LABS: % BASOPHILS 0.4 % (0.0-2.0); % EOSINOPHILS 0.3 % (0.0-5.0); % LYMPHOCYTES 17.9 % (20.0-50.0); % MONOCYTES 5.7 % (2.0-10.0); % NEUTROPHILS 75.7 % (40.0-80.0); HEMATOCRIT 27.8 % (41.0-60); HEMOGLOBIN 9.5 gm/dL (12-16); MEAN CELL VOLUME 89.3 fl (81-100); MEAN CORPUSCULAR HEMOGLOBIN 30.4 pg (27.0-31.0); MEAN CORPUSCULAR HGB CONC 34.1 pg (28.0-36.0); MEAN PLATELET VOLUME 8.7 fl; MONOCYTE ABSOLUTE 0.3 Th/cmm (0.3-1.0); NEUTROPHILE ABSOLUTE 4.2 Th/cmm (1.8-8.0); RED BLOOD COUNT 3.11 Mil/cmm (3.80-5.20); WHITE BLOOD COUNT 5.5 Th/cmm (4.8-10.8)
[2017-09-09 05:26] LABS: PLATELET COUNT 216 Th/cmm (150-400)
[2017-09-09 05:45] LABS: BUN - UREA NITROGEN 19 mg/dL (7-25); CALCIUM SERUM 9.2 mg/dL (8.6-10.3); CHLORIDE 108 mEq/L (98-107); CREATININE - SERUM 0.7 mg/dL (0.6-1.2); GFR AFRICAN-AMERICAN > 60.0 ml/min (>90); GFR NON AFRICAN-AMERICAN > 60.0 ml/min; GLUCOSE 90 mg/dL (70-105); MAGNESIUM 2.1 mg/dL (1.9-2.7); PHOSPHOROUS 2.7 mg/dL (2.5-5.0); SODIUM SERUM 141 mEq/L (136-145)
[2017-09-09] MEDS: INSULIN ASPART SLIDING SCALE 100 UNITS/ML UNIT SUBQ SCH ×3 (06:30→22:40)
[2017-09-09] MEDS ORDERED: KCL 20mEq/100mL Premix 20 MEQ/100 ML PIGGYBACK IV SCH (08:00)
[2017-09-09] MEDS: Lactobacillus Rhamnosus GG 15 Billion CFU CAP.SPRINK PO SCH (09:12)
[2017-09-09] MEDS: Ammonium Lactate Cream 140 gm Tube TP SCH (09:36)
[2017-09-09] MEDS ORDERED: Potassium Chloride Elixir 20 mEq /15 mL UDC PO ONE (11:08)
--- NOTE | 2017-09-09 15:12 | Internal Medicine Prog Note ---
Internal Medicine Subjective - Subjective Service Date: 09/09/17 Patient is:: awake, eyes closed, in bed, confused Patient Complaints of:: congestion Per staff patient has:: no adverse event, poor appetite, unstable gait, agitated , combative, refusing care, refusing labs Internal Medicine Objective - Results Result Diagrams: 09/09/17 05:08 09/09/17 05:08 Recent Labs: Laboratory Last Values WBC 5.5 Th/cmm (4.8-10.8) 09/09/17 05:08 RBC 3.11 Mil/cmm (3.80-5.20) L 09/09/17 05:08 Hgb 9.5 gm/dL (12-16) L 09/09/17 05:08 Hct 27.8 % (41.0-60) L 09/09/17 05:08 MCV 89.3 fl (81-100) 09/09/17 05:08 MCH 30.4 pg (27.0-31.0) 09/09/17 05:08 MCHC Differential 34.1 pg (28.0-36.0) 09/09/17 05:08 RDW 16.0 % (11.5-20.0) 09/09/17 05:08 Plt Count 216 Th/cmm (150-400) D 09/09/17 05:08 MPV 8.7 fl 09/09/17 05:08 Neutrophils % 75.7 % (40.0-80.0) 09/09/17 05:08 Lymphocytes % 17.9 % (20.0-50.0) L 09/09/17 05:08 Monocytes % 5.7 % (2.0-10.0) 09/09/17 05:08 Eosinophils % 0.3 % (0.0-5.0) 09/09/17 05:08 Basophils % 0.4 % (0.0-2.0) 09/09/17 05:08 Sodium 141 mEq/L (136-145) 09/09/17 05:08 Potassium 3.0 mEq/L (3.5-5.1) L 09/09/17 05:08 Chloride 108 mEq/L (98-107) H 09/09/17 05:08 Carbon Dioxide 26.0 mEq/L (21.0-31.0) 09/09/17 05:08 Anion Gap 10.0 (7.0-16.0) 09/09/17 05:08 BUN 19 mg/dL (7-25) 09/09/17 05:08 Creatinine 0.7 mg/dL (0.6-1.2) 09/09/17 05:08 Est GFR ( Amer) > 60.0 ml/min (>90) 09/09/17 05:08 Est GFR (Non-Af Amer) > 60.0 ml/min 09/09/17 05:08 BUN/Creatinine Ratio 27.1 09/09/17 05:08 Glucose 90 mg/dL (70-105) 09/09/17 05:08 POC Glucose 81 MG/DL (70 - 105) 09/09/17 13:15 Calcium 9.2 mg/dL (8.6-10.3) 09/09/17 05:08 Phosphorus 2.7 mg/dL (2.5-5.0) 09/09/17 05:08 Magnesium 2.1 mg/dL (1.9-2.7) 09/09/17 05:08 Total Bilirubin 0.8 mg/dL (0.3-1.0) 09/08/17 05:35 Direct Bilirubin 0.14 mg/dL (0.0-0.2) 09/08/17 05:35 AST 9 U/L (13-39) L 09/08/17 05:35 ALT 7 U/L (7-52) 09/08/17 05:35 Alkaline Phosphatase 68 U/L (34-104) 09/08/17 05:35 Ammonia 43 umol/L (16-53) 09/01/17 05:40 B-Natriuretic Peptide 86.7 pg/mL (5.0-100.0) 08/31/17 05:00 Total Protein 5.7 gm/dL (6.0-8.3) L 09/08/17 05:35 Albumin 3.1 gm/dL (3.7-5.3) L 09/08/17 05:35 Globulin 2.6 gm/dL 09/08/17 05:35 Albumin/Globulin Ratio 1.2 (1.0-1.8) 09/08/17 05:35 Prealbumin 13 09/06/17 06:46 Triglycerides 114 mg/dL (<150) 09/08/17 05:35 Cholesterol 189 mg/dL (<200) 09/08/17 05:35 Vitamin B12 790 pg/mL (232-1245) 09/01/17 05:40 Folic Acid 4.8 ng/mL (>3.0) 09/01/17 05:40 TSH 1.63 uIU/ml (0.34-5.60) 09/01/17 05:40 Urine Source [place] 08/29/17 13:45 Urine Color YELLOW 08/29/17 13:45 Urine Clarity SLIGHTLY HAZY (CLEAR) 08/29/17 13:45 Urine pH 7.5 (4.6 - 8.0) 08/29/17 13:45 Ur Specific [place] 1.010 (1.005-1.030) 08/29/17 13:45 Urine Protein NEGATIVE mg/dL (NEGATIVE) 08/29/17 13:45 Urine Glucose (UA) NEGATIVE mg/dL (NEGATIVE) 08/29/17 13:45 Urine Ketones NEGATIVE mg/dL (NEGATIVE) 08/29/17 13:45 Urine Blood TRACE (NEGATIVE) 08/29/17 13:45 Urine Nitrate NEGATIVE (NEGATIVE) 08/29/17 13:45 Urine Bilirubin NEGATIVE (NEGATIVE) 08/29/17 13:45 Urine Urobilinogen 0.2 E.U./dL (0.2 - 1.0) 08/29/17 13:45 Ur Leukocyte Esterase NEGATIVE (NEGATIVE) 08/29/17 13:45 Urine RBC 0-2 /hpf (0-5) 08/29/17 13:45 Urine WBC 0-2 /hpf (0-5) 08/29/17 13:45 Ur Epithelial Cells OCCASIONAL /lpf (FEW) 08/29/17 13:45 Urine Bacteria FEW /hpf (NONE SEEN) 08/29/17 13:45 - Physical Exam Vitals and I&O: Vital Signs Temp 97.8 F 09/09/17 11:44 Pulse 83 09/09/17 11:44 Resp 18 09/09/17 11:44 BP 132/84 09/09/17 11:44 Pulse Ox 98 09/09/17 11:44 Intake & Output 09/08/17 09/09/17 09/09/17 18:59 06:59 18:59 Intake Total 1440 0 Output Total 1150 Balance 1440 -1150 Weight (lbs) 98 lb 14.4 oz Intake: Intake, IV Amount 1440 Multivitamin Inj 1 ml In 1440 Amino Acids 4.25% /Dext 10% 1,439 ml @ 60 mls/hr IV .Q24H [facility] Rx#: [id number] Oral 0 Output: Urine 1150 Other: # Bowel Movements 0 Weight Source Bedscale Active Medications: Current Medications Acetaminophen (Tylenol) 650 mg GT Q4HR PRN PRN Reason: Pain or Fever >101 Stop: 10/23/17 19:40 Albuterol Sulfate (Albuterol 2.5mg/3ml Neb Ud) 2.5 mg HHN Q4HRT PRN PRN Reason: Shortness of Breath Stop: 10/23/17 19:40 Bisacodyl (Dulcolax 10 Mg Supp) 10 mg RC DAILY PRN PRN Reason: Constipation Stop: 10/23/17 19:40 Dextrose (D50w) 50 ml IVP PRN PRN; Protocol PRN Reason: hypoglycemia protocol Stop: 11/04/17 12:57 Docusate Sodium (Colace) 100 mg GT DAILY PRN PRN Reason: CONSTIPATION Stop: 10/24/17 08:59 Last Admin: 08/27/17 17:38 Dose: 100 mg Heparin Sodium (Porcine) (Heparin) 5,000 units SUBQ Q12HR [facility] Stop: 10/24/17 20:59 Last Admin: 09/09/17 09:12 Dose: Not Given Multivitamins/Minerals 1 ml/ (Amino Acids) 1,440 mls @ 60 mls/hr IV .Q24H [facility] Stop: 11/05/17 15:59 Last Admin: 09/08/17 16:18 Dose: 60 mls/hr Insulin Aspart (Novolog Insulin Sliding Scale) 0 units SUBQ ACHS [facility]; Protocol Stop: 10/23/17 20:59 Last Admin: 09/09/17 14:02 Dose: Not Given Ipratropium [place] (Atrovent Neb 0.5mg/2.5ml) 0.5 mg HHN Q4HRT PRN PRN Reason: Shortness of Breath or Wheeze Stop: 10/23/17 19:40 Lactic Acid (Lac-Hydrin Cream) 1 appl TP DAILY [facility] Stop: 10/24/17 08:59 Last Admin: 09/09/17 09:36 Dose: 1 appl Lactobacillus Rhamnosus (Culturelle 15b) 1 each PO DAILY [facility] Stop: 10/29/17 08:59 Last Admin: 09/09/17 09:12 Dose: Not Given Lorazepam (Ativan) 0.5 mg PO Q6HR PRN; Protocol PRN Reason: Agitation Stop: 10/23/17 19:40 Magnesium Hydroxide (Milk Of Magnesia) 30 ml PO HS PRN PRN Reason: Constipation Stop: 10/23/17 19:40 Megestrol Acetate (Megace) 400 mg PO BID [facility] Stop: 10/24/17 08:59 Last Admin: 09/09/17 09:12 Dose: Not Given Mirtazapine (Remeron) 15 mg PO HS [facility]; Protocol Stop: 10/30/17 20:59 Last Admin: 09/08/17 21:28 Dose: Not Given Miscellaneous (Vte Chemical Prophylaxis Screen/ Admission) 1 ea PRN PRN PRN Reason: PROTOCOL Stop: 10/24/17 09:26 Miscellaneous (Probiotic Screen) 1 ea PRN PRN PRN Reason: PROTOCOL Stop: 10/29/17 08:59 Miscellaneous (Ppn Per Pharmacy) 1 ea PRN PRN PRN Reason: PROTOCOL Stop: 11/04/17 12:41 Olanzapine (Zyprexa) 5 mg PO HS [facility]; Protocol Stop: 10/23/17 20:59 Last Admin: 09/08/17 21:29 Dose: Not Given Sodium Phosphate (Fleet Enema) 135 ml RC DAILY PRN PRN Reason: Constipation Stop: 10/23/17 19:40 Zolpidem Tartrate (Ambien) 5 mg PO HS PRN PRN Reason: Insomnia Stop: 10/23/17 19:40 General: demented, disheveled, thin, cachectic HEENT: NC/AT, PERRLA Neck: Supple, No JVD, No LAD Lungs: congested, chest deformity present Cardiovascular: RRR, Normal S1, Normal S2, with murmur Abdomen: soft, non-tender, thin, positive bowel sound Extremities: excoriation, contracture, deformity Neurological: disorganized, muscle weakness, unable to follow command - Procedures Procedures: Procedures Procedure Code Date RECREATIONAL THERAPY 93.81 11/09/10 Internal Medicine Assmt/Plan - Assessment Assessment: Failure to thrive poor p.o. intake severe protein-caloric malnutrition diabetes congestive heart failure acute on chronic renal insufficiency schizoaffective disorder hypertension hypokalemia dementia legally blind leukocytosis bedbound. noncompliant - Plan Plan: continue with PPn for nutritional support conservator is currently on vacation and consent for peg pending. ivf for hydration monitor electrolytes continue current plan of care Nutritional Asmnt/Malnutr-PDOC - Dietary Evaluation Malnutrition Findings (Please click <Entered> for more info): Nutritional Asmnt/Malnutrition Start: 08/25/17 17: 28 Text: Status: Complete Freq: Protocol: Document 08/25/17 17:28 LCHENG (Rec: 08/25/17 17:32 [email or web address]) Nutritional Asmnt/Malnutrition Patient General Information Nutritional Screening High Risk Consult Diagnosis dehydration, FTT Pertinent Medical Hx/Surgical Hx DM, CHF, kidney failure, schizophrenia, HTN, dementia, legally blind, noncompliance Subjective Information Consult received for poor oral intake. Pt seen resting in bed at time of visit. Per nurse note, pt refused breakfast and lunch today. Pt on calorie count noted. Current Diet Order/ Nutrition Support pureed, nectar thin liquid Pertinent Medications D5-0.45ns, colace, novolog, megace Pertinent Labs 7/2 K 3.0, glucose 106 Nutritional Hx/Data Height 5 ft 6 in Height (Calculated Centimeters) 167.6 Current Weight (lbs) 111 lb Weight (Calculated Kilograms) 50.3 Weight (Calculated Grams) 18160.8 [place] Body Weight 130 Body Mass Index (BMI) 17.9 Weight Status Underweight GI Symptoms GI Symptoms None Last BM none Skin Integrity/Comment: redness Estimated Nutritional Goals BEE in Kcals: Using Current wt Calories/Kcals/Kg 30-35 Kcals Calculated 7206-1598 Protein: Using Current wt Protein g/k.2 Protein Calculated 60 Fluid: ml 1500-1750ml (1ml/kcal) Nutritional Problem 1. Problem Problem inadequate food intake Etiology pt refusing to eat Signs/Symptoms: PO intake <25% since admission Malnutrition Alert Muscle Mass (Non-Severe) Mild Depletion Is there a minimum of two criteria No selected? Query Text:Check all the applicable criteria. A minimum of two criteria are recommended for diagnosis of either severe or non-severe malnutrition. Malnutrition Related to Morbid Obesity Malnutrition related to morbid obesity No Intervention/Recommendation Comments 1. Continue with current diet as ordered. Assist pt with meals and encourage oral intake. 2. Monitor PO intake, wt, labs and skin integrity 3. F/U as high risk in 2-3 days, 08/27-08/28 Expected Outcomes/Goals Expected Outcomes/Goals 1. PO intake to meet at least 75% of nutritional needs. 2. Wt stability, skin to remain intact, labs to approach WNL.
[2017-09-09] MEDS: DEXT 10% IV SCH (16:03)
[2017-09-09] MEDS: MULTIVITAMIN IV SCH (16:03)
[2017-09-09] MEDS: AMINO ACIDS IV SCH (16:03)
[2017-09-10 06:16] LABS: ANION GAP 9.7 (7.0-16.0); BUN - UREA NITROGEN 20 mg/dL (7-25); CALCIUM SERUM 9.1 mg/dL (8.6-10.3); CHLORIDE 110 mEq/L (98-107); CREATININE - SERUM 0.7 mg/dL (0.6-1.2); GFR AFRICAN-AMERICAN > 60.0 ml/min (>90); GFR NON AFRICAN-AMERICAN > 60.0 ml/min; GLUCOSE 100 mg/dL (70-105); MAGNESIUM 2.3 mg/dL (1.9-2.7); PHOSPHOROUS 3.4 mg/dL (2.5-5.0); POTASSIUM SERUM 3.7 mEq/L (3.5-5.1); SODIUM SERUM 142 mEq/L (136-145)
[2017-09-10] MEDS: INSULIN ASPART SLIDING SCALE 100 UNITS/ML UNIT SUBQ SCH ×4 (09:15→20:38)
[2017-09-10] MEDS: Ammonium Lactate Cream 140 gm Tube TP SCH (10:30)
[2017-09-10] MEDS: DEXT 10% IV SCH (16:43)
[2017-09-10] MEDS: MULTIVITAMIN IV SCH (16:43)
[2017-09-10] MEDS: AMINO ACIDS IV SCH (16:43)
--- NOTE | 2017-09-10 18:59 | Internal Medicine Prog Note ---
Internal Medicine Subjective - Subjective Service Date: 09/10/17 Patient is:: awake, eyes closed, in bed, confused Patient Complaints of:: congestion Per staff patient has:: no adverse event, poor appetite, unstable gait, agitated , combative, refusing care, refusing labs Internal Medicine Objective - Results Result Diagrams: 09/09/17 05:08 09/10/17 05:25 Recent Labs: Laboratory Last Values WBC 5.5 Th/cmm (4.8-10.8) 09/09/17 05:08 RBC 3.11 Mil/cmm (3.80-5.20) L 09/09/17 05:08 Hgb 9.5 gm/dL (12-16) L 09/09/17 05:08 Hct 27.8 % (41.0-60) L 09/09/17 05:08 MCV 89.3 fl (81-100) 09/09/17 05:08 MCH 30.4 pg (27.0-31.0) 09/09/17 05:08 MCHC Differential 34.1 pg (28.0-36.0) 09/09/17 05:08 RDW 16.0 % (11.5-20.0) 09/09/17 05:08 Plt Count 216 Th/cmm (150-400) D 09/09/17 05:08 MPV 8.7 fl 09/09/17 05:08 Neutrophils % 75.7 % (40.0-80.0) 09/09/17 05:08 Lymphocytes % 17.9 % (20.0-50.0) L 09/09/17 05:08 Monocytes % 5.7 % (2.0-10.0) 09/09/17 05:08 Eosinophils % 0.3 % (0.0-5.0) 09/09/17 05:08 Basophils % 0.4 % (0.0-2.0) 09/09/17 05:08 Sodium 142 mEq/L (136-145) 09/10/17 05:25 Potassium 3.7 mEq/L (3.5-5.1) 09/10/17 05:25 Chloride 110 mEq/L (98-107) H 09/10/17 05:25 Carbon Dioxide 26.0 mEq/L (21.0-31.0) 09/10/17 05:25 Anion Gap 9.7 (7.0-16.0) 09/10/17 05:25 BUN 20 mg/dL (7-25) 09/10/17 05:25 Creatinine 0.7 mg/dL (0.6-1.2) 09/10/17 05:25 Est GFR ( Amer) > 60.0 ml/min (>90) 09/10/17 05:25 Est GFR (Non-Af Amer) > 60.0 ml/min 09/10/17 05:25 BUN/Creatinine Ratio 28.6 09/10/17 05:25 Glucose 100 mg/dL (70-105) 09/10/17 05:25 POC Glucose 96 MG/DL (70 - 105) 09/10/17 17:31 Calcium 9.1 mg/dL (8.6-10.3) 09/10/17 05:25 Phosphorus 3.4 mg/dL (2.5-5.0) 09/10/17 05:25 Magnesium 2.3 mg/dL (1.9-2.7) 09/10/17 05:25 Total Bilirubin 0.8 mg/dL (0.3-1.0) 09/08/17 05:35 Direct Bilirubin 0.14 mg/dL (0.0-0.2) 09/08/17 05:35 AST 9 U/L (13-39) L 09/08/17 05:35 ALT 7 U/L (7-52) 09/08/17 05:35 Alkaline Phosphatase 68 U/L (34-104) 09/08/17 05:35 Ammonia 43 umol/L (16-53) 09/01/17 05:40 B-Natriuretic Peptide 86.7 pg/mL (5.0-100.0) 08/31/17 05:00 Total Protein 5.7 gm/dL (6.0-8.3) L 09/08/17 05:35 Albumin 3.1 gm/dL (3.7-5.3) L 09/08/17 05:35 Globulin 2.6 gm/dL 09/08/17 05:35 Albumin/Globulin Ratio 1.2 (1.0-1.8) 09/08/17 05:35 Prealbumin 13 09/06/17 06:46 Triglycerides 114 mg/dL (<150) 09/08/17 05:35 Cholesterol 189 mg/dL (<200) 09/08/17 05:35 Vitamin B12 790 pg/mL (232-1245) 09/01/17 05:40 Folic Acid 4.8 ng/mL (>3.0) 09/01/17 05:40 TSH 1.63 uIU/ml (0.34-5.60) 09/01/17 05:40 Urine Source [place] 08/29/17 13:45 Urine Color YELLOW 08/29/17 13:45 Urine Clarity SLIGHTLY HAZY (CLEAR) 08/29/17 13:45 Urine pH 7.5 (4.6 - 8.0) 08/29/17 13:45 Ur Specific [place] 1.010 (1.005-1.030) 08/29/17 13:45 Urine Protein NEGATIVE mg/dL (NEGATIVE) 08/29/17 13:45 Urine Glucose (UA) NEGATIVE mg/dL (NEGATIVE) 08/29/17 13:45 Urine Ketones NEGATIVE mg/dL (NEGATIVE) 08/29/17 13:45 Urine Blood TRACE (NEGATIVE) 08/29/17 13:45 Urine Nitrate NEGATIVE (NEGATIVE) 08/29/17 13:45 Urine Bilirubin NEGATIVE (NEGATIVE) 08/29/17 13:45 Urine Urobilinogen 0.2 E.U./dL (0.2 - 1.0) 08/29/17 13:45 Ur Leukocyte Esterase NEGATIVE (NEGATIVE) 08/29/17 13:45 Urine RBC 0-2 /hpf (0-5) 08/29/17 13:45 Urine WBC 0-2 /hpf (0-5) 08/29/17 13:45 Ur Epithelial Cells OCCASIONAL /lpf (FEW) 08/29/17 13:45 Urine Bacteria FEW /hpf (NONE SEEN) 08/29/17 13:45 - Physical Exam Vitals and I&O: Vital Signs Temp 98.3 F 09/10/17 16:11 Pulse 87 09/10/17 16:11 Resp 18 09/10/17 16:11 BP 114/72 09/10/17 16:11 Pulse Ox 94 09/10/17 16:11 Intake & Output 09/09/17 09/10/17 09/10/17 18:59 06:59 18:59 Intake Total 2145 1440 Output Total 900 1150 Balance 1245 290 Weight (lbs) 98 lb 14.4 oz 98 lb Intake: Intake, IV Amount 1425 1440 Multivitamin Inj 1 ml In 1425 1440 Amino Acids 4.25% /Dext 10% 1,439 ml @ 60 mls/hr IV .Q24H [facility] Rx#: [id number] TPN/PPN 720 Output: Urine 900 1150 Other: # Bowel Movements 1 Weight Source Bedscale Bedscale Active Medications: Current Medications Acetaminophen (Tylenol) 650 mg GT Q4HR PRN PRN Reason: Pain or Fever >101 Stop: 10/23/17 19:40 Albuterol Sulfate (Albuterol 2.5mg/3ml Neb Ud) 2.5 mg HHN Q4HRT PRN PRN Reason: Shortness of Breath Stop: 10/23/17 19:40 Bisacodyl (Dulcolax 10 Mg Supp) 10 mg RC DAILY PRN PRN Reason: Constipation Stop: 10/23/17 19:40 Dextrose (D50w) 50 ml IVP PRN PRN; Protocol PRN Reason: hypoglycemia protocol Stop: 11/04/17 12:57 Docusate Sodium (Colace) 100 mg GT DAILY PRN PRN Reason: CONSTIPATION Stop: 10/24/17 08:59 Last Admin: 08/27/17 17:38 Dose: 100 mg Heparin Sodium (Porcine) (Heparin) 5,000 units SUBQ Q12HR [facility] Stop: 10/24/17 20:59 Last Admin: 09/10/17 09:40 Dose: Not Given Multivitamins/Minerals 1 ml/ (Amino Acids) 1,440 mls @ 60 mls/hr IV .Q24H [facility] Stop: 11/05/17 15:59 Last Admin: 09/10/17 16:43 Dose: 60 mls/hr Insulin Aspart (Novolog Insulin Sliding Scale) 0 units SUBQ ACHS [facility]; Protocol Stop: 10/23/17 20:59 Last Admin: 09/10/17 18:49 Dose: Not Given Ipratropium [place] (Atrovent Neb 0.5mg/2.5ml) 0.5 mg HHN Q4HRT PRN PRN Reason: Shortness of Breath or Wheeze Stop: 10/23/17 19:40 Lactic Acid (Lac-Hydrin Cream) 1 appl TP DAILY [facility] Stop: 10/24/17 08:59 Last Admin: 09/10/17 10:30 Dose: 1 appl Lorazepam (Ativan) 0.5 mg PO Q6HR PRN; Protocol PRN Reason: Agitation Stop: 10/23/17 19:40 Magnesium Hydroxide (Milk Of Magnesia) 30 ml PO HS PRN PRN Reason: Constipation Stop: 10/23/17 19:40 Megestrol Acetate (Megace) 400 mg PO BID [facility] Stop: 10/24/17 08:59 Last Admin: 09/10/17 18:50 Dose: Not Given Mirtazapine (Remeron) 15 mg PO HS [facility]; Protocol Stop: 10/30/17 20:59 Last Admin: 09/09/17 22:01 Dose: Not Given Miscellaneous (Vte Chemical Prophylaxis Screen/ Admission) 1 ea PRN PRN PRN Reason: PROTOCOL Stop: 10/24/17 09:26 Miscellaneous (Probiotic Screen) 1 ea PRN PRN PRN Reason: PROTOCOL Stop: 10/29/17 08:59 Miscellaneous (Ppn Per Pharmacy) 1 ea PRN PRN PRN Reason: PROTOCOL Stop: 11/04/17 12:41 Olanzapine (Zyprexa) 5 mg PO HS [facility]; Protocol Stop: 10/23/17 20:59 Last Admin: 09/09/17 22:01 Dose: Not Given Sodium Phosphate (Fleet Enema) 135 ml RC DAILY PRN PRN Reason: Constipation Stop: 10/23/17 19:40 Zolpidem Tartrate (Ambien) 5 mg PO HS PRN PRN Reason: Insomnia Stop: 10/23/17 19:40 General: demented, disheveled, thin, cachectic HEENT: NC/AT, PERRLA Neck: Supple, No JVD, No LAD Lungs: congested, chest deformity present Cardiovascular: RRR, Normal S1, Normal S2, with murmur Abdomen: soft, non-tender, thin, positive bowel sound Extremities: excoriation, contracture, deformity Neurological: disorganized, muscle weakness, unable to follow command - Procedures Procedures: Procedures Procedure Code Date RECREATIONAL THERAPY 93.81 11/09/10 Internal Medicine Assmt/Plan - Assessment Assessment: Failure to thrive poor p.o. intake severe protein-caloric malnutrition diabetes congestive heart failure acute on chronic renal insufficiency schizoaffective disorder hypertension hypokalemia dementia legally blind leukocytosis bedbound. noncompliant - Plan Plan: current documentations appropriate for peg placement faxed to conservator. once approved, peg will be scheduled. continue with PPn for nutritional support ivf for hydration monitor electrolytes continue current plan of care Nutritional Asmnt/Malnutr-PDOC - Dietary Evaluation Malnutrition Findings (Please click <Entered> for more info): Nutritional Asmnt/Malnutrition Start: 08/25/17 17: 28 Text: Status: Complete Freq: Protocol: Document 08/25/17 17:28 LCHENG (Rec: 08/25/17 17:32 [email or web address]) Nutritional Asmnt/Malnutrition Patient General Information Nutritional Screening High Risk Consult Diagnosis dehydration, FTT Pertinent Medical Hx/Surgical Hx DM, CHF, kidney failure, schizophrenia, HTN, dementia, legally blind, noncompliance Subjective Information Consult received for poor oral intake. Pt seen resting in bed at time of visit. Per nurse note, pt refused breakfast and lunch today. Pt on calorie count noted. Current Diet Order/ Nutrition Support pureed, nectar thin liquid Pertinent Medications D5-0.45ns, colace, novolog, megace Pertinent Labs 7/2 K 3.0, glucose 106 Nutritional Hx/Data Height 5 ft 6 in Height (Calculated Centimeters) 167.6 Current Weight (lbs) 111 lb Weight (Calculated Kilograms) 50.3 Weight (Calculated Grams) 99953.8 [place] Body Weight 130 Body Mass Index (BMI) 17.9 Weight Status Underweight GI Symptoms GI Symptoms None Last BM none Skin Integrity/Comment: redness Estimated Nutritional Goals BEE in Kcals: Using Current wt Calories/Kcals/Kg 30-35 Kcals Calculated 4882-9550 Protein: Using Current wt Protein g/k.2 Protein Calculated 60 Fluid: ml 1500-1750ml (1ml/kcal) Nutritional Problem 1. Problem Problem inadequate food intake Etiology pt refusing to eat Signs/Symptoms: PO intake <25% since admission Malnutrition Alert Muscle Mass (Non-Severe) Mild Depletion Is there a minimum of two criteria No selected? Query Text:Check all the applicable criteria. A minimum of two criteria are recommended for diagnosis of either severe or non-severe malnutrition. Malnutrition Related to Morbid Obesity Malnutrition related to morbid obesity No Intervention/Recommendation Comments 1. Continue with current diet as ordered. Assist pt with meals and encourage oral intake. 2. Monitor PO intake, wt, labs and skin integrity 3. F/U as high risk in 2-3 days, 08/27-08/28 Expected Outcomes/Goals Expected Outcomes/Goals 1. PO intake to meet at least 75% of nutritional needs. 2. Wt stability, skin to remain intact, labs to approach WNL.
[2017-09-11 06:20] LABS: % BASOPHILS 0.5 % (0.0-2.0); % EOSINOPHILS 0.7 % (0.0-5.0); % NEUTROPHILS 75.8 % (40.0-80.0); HEMATOCRIT 29.9 % (41.0-60); HEMOGLOBIN 10.1 gm/dL (12-16); LYMPHOCYTE ABSOLUTE 0.9 Th/cmm (1.5-3.0); MEAN CELL VOLUME 89.2 fl (81-100); MEAN CORPUSCULAR HEMOGLOBIN 30.1 pg (27.0-31.0); MEAN CORPUSCULAR HGB CONC 33.7 pg (28.0-36.0); MEAN PLATELET VOLUME 9.4 fl; MONOCYTE ABSOLUTE 0.4 Th/cmm (0.3-1.0); NEUTROPHILE ABSOLUTE 4.6 Th/cmm (1.8-8.0); PLATELET COUNT 222 Th/cmm (150-400); RED BLOOD COUNT 3.35 Mil/cmm (3.80-5.20); RED CELL DISTRIBUTION WIDTH 15.7 % (11.5-20.0); WHITE BLOOD COUNT 5.9 Th/cmm (4.8-10.8)
[2017-09-11 06:38] LABS: ANION GAP 8.8 (7.0-16.0); BUN - UREA NITROGEN 24 mg/dL (7-25); CALCIUM SERUM 9.1 mg/dL (8.6-10.3); CARBON DIOXIDE 26.9 mEq/L (21.0-31.0); CHLORIDE 110 mEq/L (98-107); CREATININE - SERUM 0.7 mg/dL (0.6-1.2); GFR AFRICAN-AMERICAN > 60.0 ml/min (>90); GFR NON AFRICAN-AMERICAN > 60.0 ml/min; GLUCOSE 122 mg/dL (70-105); PHOSPHOROUS 2.9 mg/dL (2.5-5.0); POTASSIUM SERUM 3.7 mEq/L (3.5-5.1); SODIUM SERUM 142 mEq/L (136-145)
[2017-09-11] MEDS: INSULIN ASPART SLIDING SCALE 100 UNITS/ML UNIT SUBQ SCH ×4 (07:41→22:11)
[2017-09-11] MEDS: Ammonium Lactate Cream 140 gm Tube TP SCH (09:22)
[2017-09-11] MEDS ORDERED: Polyvinyl Alcohol Ophth Soln 15 mL Bottle EACH EYE PRN (10:47)
--- NOTE | 2017-09-11 13:19 | Internal Medicine Prog Note ---
Internal Medicine Subjective - Subjective Service Date: 09/11/17 (still refuses to eat ) Patient is:: awake, eyes closed, in bed, confused Patient Complaints of:: congestion Per staff patient has:: no adverse event, poor appetite, unstable gait, agitated , combative, refusing care, refusing labs Internal Medicine Objective - Results Result Diagrams: 09/11/17 05:25 09/11/17 05:25 Recent Labs: Laboratory Last Values WBC 5.9 Th/cmm (4.8-10.8) 09/11/17 05:25 RBC 3.35 Mil/cmm (3.80-5.20) L 09/11/17 05:25 Hgb 10.1 gm/dL (12-16) L 09/11/17 05:25 Hct 29.9 % (41.0-60) L 09/11/17 05:25 MCV 89.2 fl (81-100) 09/11/17 05:25 MCH 30.1 pg (27.0-31.0) 09/11/17 05:25 MCHC Differential 33.7 pg (28.0-36.0) 09/11/17 05:25 RDW 15.7 % (11.5-20.0) 09/11/17 05:25 Plt Count 222 Th/cmm (150-400) 09/11/17 05:25 MPV 9.4 fl 09/11/17 05:25 Neutrophils % 75.8 % (40.0-80.0) 09/11/17 05:25 Lymphocytes % 16.0 % (20.0-50.0) L 09/11/17 05:25 Monocytes % 7.0 % (2.0-10.0) 09/11/17 05:25 Eosinophils % 0.7 % (0.0-5.0) 09/11/17 05:25 Basophils % 0.5 % (0.0-2.0) 09/11/17 05:25 Sodium 142 mEq/L (136-145) 09/11/17 05:25 Potassium 3.7 mEq/L (3.5-5.1) 09/11/17 05:25 Chloride 110 mEq/L (98-107) H 09/11/17 05:25 Carbon Dioxide 26.9 mEq/L (21.0-31.0) 09/11/17 05:25 Anion Gap 8.8 (7.0-16.0) 09/11/17 05:25 BUN 24 mg/dL (7-25) 09/11/17 05:25 Creatinine 0.7 mg/dL (0.6-1.2) 09/11/17 05:25 Est GFR ( Amer) > 60.0 ml/min (>90) 09/11/17 05:25 Est GFR (Non-Af Amer) > 60.0 ml/min 09/11/17 05:25 BUN/Creatinine Ratio 34.3 09/11/17 05:25 Glucose 122 mg/dL (70-105) H 09/11/17 05:25 POC Glucose 92 MG/DL (70 - 105) 09/11/17 12:34 Calcium 9.1 mg/dL (8.6-10.3) 09/11/17 05:25 Phosphorus 2.9 mg/dL (2.5-5.0) 09/11/17 05:25 Magnesium 2.2 mg/dL (1.9-2.7) 09/11/17 05:25 Total Bilirubin 0.8 mg/dL (0.3-1.0) 09/08/17 05:35 Direct Bilirubin 0.14 mg/dL (0.0-0.2) 09/08/17 05:35 AST 9 U/L (13-39) L 09/08/17 05:35 ALT 7 U/L (7-52) 09/08/17 05:35 Alkaline Phosphatase 68 U/L (34-104) 09/08/17 05:35 Ammonia 43 umol/L (16-53) 09/01/17 05:40 B-Natriuretic Peptide 86.7 pg/mL (5.0-100.0) 08/31/17 05:00 Total Protein 5.7 gm/dL (6.0-8.3) L 09/08/17 05:35 Albumin 3.1 gm/dL (3.7-5.3) L 09/08/17 05:35 Globulin 2.6 gm/dL 09/08/17 05:35 Albumin/Globulin Ratio 1.2 (1.0-1.8) 09/08/17 05:35 Prealbumin 13 09/06/17 06:46 Triglycerides 114 mg/dL (<150) 09/08/17 05:35 Cholesterol 189 mg/dL (<200) 09/08/17 05:35 Vitamin B12 790 pg/mL (232-1245) 09/01/17 05:40 Folic Acid 4.8 ng/mL (>3.0) 09/01/17 05:40 TSH 1.63 uIU/ml (0.34-5.60) 09/01/17 05:40 Urine Source [place] 08/29/17 13:45 Urine Color YELLOW 08/29/17 13:45 Urine Clarity SLIGHTLY HAZY (CLEAR) 08/29/17 13:45 Urine pH 7.5 (4.6 - 8.0) 08/29/17 13:45 Ur Specific [place] 1.010 (1.005-1.030) 08/29/17 13:45 Urine Protein NEGATIVE mg/dL (NEGATIVE) 08/29/17 13:45 Urine Glucose (UA) NEGATIVE mg/dL (NEGATIVE) 08/29/17 13:45 Urine Ketones NEGATIVE mg/dL (NEGATIVE) 08/29/17 13:45 Urine Blood TRACE (NEGATIVE) 08/29/17 13:45 Urine Nitrate NEGATIVE (NEGATIVE) 08/29/17 13:45 Urine Bilirubin NEGATIVE (NEGATIVE) 08/29/17 13:45 Urine Urobilinogen 0.2 E.U./dL (0.2 - 1.0) 08/29/17 13:45 Ur Leukocyte Esterase NEGATIVE (NEGATIVE) 08/29/17 13:45 Urine RBC 0-2 /hpf (0-5) 08/29/17 13:45 Urine WBC 0-2 /hpf (0-5) 08/29/17 13:45 Ur Epithelial Cells OCCASIONAL /lpf (FEW) 08/29/17 13:45 Urine Bacteria FEW /hpf (NONE SEEN) 08/29/17 13:45 - Physical Exam Vitals and I&O: Vital Signs Temp 97.8 F 09/11/17 11:19 Pulse 70 09/11/17 11:19 Resp 17 09/11/17 11:19 BP 121/81 09/11/17 11:19 Pulse Ox 98 09/11/17 11:19 Intake & Output 09/10/17 09/11/17 09/11/17 18:59 06:59 18:59 Intake Total 1440 0 Output Total 1150 Balance 290 0 Weight (lbs) 98 lb 100 lb 3.2 oz 100 lb 3.2 oz Intake: Intake, IV Amount 1440 Multivitamin Inj 1 ml In 1440 Amino Acids 4.25% /Dext 10% 1,439 ml @ 60 mls/hr IV .Q24H [facility] Rx#: [id number] Oral 0 Output: Urine 1150 Other: Weight Source Bedscale Bedscale Bedscale Active Medications: Current Medications Acetaminophen (Tylenol) 650 mg GT Q4HR PRN PRN Reason: Pain or Fever >101 Stop: 10/23/17 19:40 Albuterol Sulfate (Albuterol 2.5mg/3ml Neb Ud) 2.5 mg HHN Q4HRT PRN PRN Reason: Shortness of Breath Stop: 10/23/17 19:40 Artificial Tears (Artificial Tears Ophth Soln) 1 drop EACH EYE Q2H PRN PRN Reason: Dry Eye Stop: 11/10/17 10:46 Bisacodyl (Dulcolax 10 Mg Supp) 10 mg RC DAILY PRN PRN Reason: Constipation Stop: 10/23/17 19:40 Dextrose (D50w) 50 ml IVP PRN PRN; Protocol PRN Reason: hypoglycemia protocol Stop: 11/04/17 12:57 Docusate Sodium (Colace) 100 mg GT DAILY PRN PRN Reason: CONSTIPATION Stop: 10/24/17 08:59 Last Admin: 08/27/17 17:38 Dose: 100 mg Heparin Sodium (Porcine) (Heparin) 5,000 units SUBQ Q12HR [facility] Stop: 10/24/17 20:59 Last Admin: 09/11/17 09:22 Dose: Not Given Multivitamins/Minerals 1 ml/ (Amino Acids) 1,440 mls @ 60 mls/hr IV .Q24H [facility] Stop: 11/05/17 15:59 Last Admin: 09/10/17 16:43 Dose: 60 mls/hr Insulin Aspart (Novolog Insulin Sliding Scale) 0 units SUBQ ACHS [facility]; Protocol Stop: 10/23/17 20:59 Last Admin: 09/11/17 12:34 Dose: Not Given Ipratropium [place] (Atrovent Neb 0.5mg/2.5ml) 0.5 mg HHN Q4HRT PRN PRN Reason: Shortness of Breath or Wheeze Stop: 10/23/17 19:40 Lactic Acid (Lac-Hydrin Cream) 1 appl TP DAILY [facility] Stop: 10/24/17 08:59 Last Admin: 09/11/17 09:22 Dose: 1 appl Lorazepam (Ativan) 0.5 mg PO Q6HR PRN; Protocol PRN Reason: Agitation Stop: 10/23/17 19:40 Magnesium Hydroxide (Milk Of Magnesia) 30 ml PO HS PRN PRN Reason: Constipation Stop: 10/23/17 19:40 Megestrol Acetate (Megace) 400 mg PO BID FOZ[facility] Stop: 10/24/17 08:59 Last Admin: 09/11/17 09:21 Dose: 400 mg Mirtazapine (Remeron) 15 mg PO HS [facility]; Protocol Stop: 10/30/17 20:59 Last Admin: 09/10/17 20:37 Dose: Not Given Miscellaneous (Vte Chemical Prophylaxis Screen/ Admission) 1 ea MC PRN PRN PRN Reason: PROTOCOL Stop: 10/24/17 09:26 Miscellaneous (Probiotic Screen) 1 ea MC PRN PRN PRN Reason: PROTOCOL Stop: 10/29/17 08:59 Miscellaneous (Ppn Per Pharmacy) 1 ea MC PRN PRN PRN Reason: PROTOCOL Stop: 11/04/17 12:41 Olanzapine (Zyprexa) 5 mg PO HS FOZIA; Protocol Stop: 10/23/17 20:59 Last Admin: 09/10/17 20:37 Dose: Not Given Sodium Phosphate (Fleet Enema) 135 ml RC DAILY PRN PRN Reason: Constipation Stop: 10/23/17 19:40 Zolpidem Tartrate (Ambien) 5 mg PO HS PRN PRN Reason: Insomnia Stop: 10/23/17 19:40 General: demented, disheveled, thin, cachectic HEENT: NC/AT, PERRLA Neck: Supple, No JVD, No LAD Lungs: congested, chest deformity present Cardiovascular: RRR, Normal S1, Normal S2, with murmur Abdomen: soft, non-tender, thin, positive bowel sound Extremities: excoriation, contracture, deformity Neurological: disorganized, muscle weakness, unable to follow command - Procedures Procedures: Procedures Procedure Code Date RECREATIONAL THERAPY 93.81 11/09/10 Internal Medicine Assmt/Plan - Assessment Assessment: Failure to thrive poor p.o. intake severe protein-caloric malnutrition diabetes congestive heart failure acute on chronic renal insufficiency schizoaffective disorder hypertension hypokalemia dementia legally blind leukocytosis bedbound. noncompliant - Plan Plan: current documentations appropriate for peg placement faxed to conservator. once approved, peg will be scheduled. continue with PPn for nutritional support ivf for hydration monitor electrolytes continue current plan of care Nutritional Asmnt/Malnutr-PDOC - Dietary Evaluation Malnutrition Findings (Please click <Entered> for more info): Nutritional Asmnt/Malnutrition Start: 08/25/17 17: 28 Text: Status: Complete Freq: Protocol: Document 08/25/17 17:28 LCHENG (Rec: 08/25/17 17:32 [email or web address]) Nutritional Asmnt/Malnutrition Patient General Information Nutritional Screening High Risk Consult Diagnosis dehydration, FTT Pertinent Medical Hx/Surgical Hx DM, CHF, kidney failure, schizophrenia, HTN, dementia, legally blind, noncompliance Subjective Information Consult received for poor oral intake. Pt seen resting in bed at time of visit. Per nurse note, pt refused breakfast and lunch today. Pt on calorie count noted. Current Diet Order/ Nutrition Support pureed, nectar thin liquid Pertinent Medications D5-0.45ns, colace, novolog, megace Pertinent Labs 7/2 K 3.0, glucose 106 Nutritional Hx/Data Height 5 ft 6 in Height (Calculated Centimeters) 167.6 Current Weight (lbs) 111 lb Weight (Calculated Kilograms) 50.3 Weight (Calculated Grams) 08690.8 [place] Body Weight 130 Body Mass Index (BMI) 17.9 Weight Status Underweight GI Symptoms GI Symptoms None Last BM none Skin Integrity/Comment: redness Estimated Nutritional Goals BEE in Kcals: Using Current wt Calories/Kcals/Kg 30-35 Kcals Calculated 1587-6756 Protein: Using Current wt Protein g/k.2 Protein Calculated 60 Fluid: ml 1500-1750ml (1ml/kcal) Nutritional Problem 1. Problem Problem inadequate food intake Etiology pt refusing to eat Signs/Symptoms: PO intake <25% since admission Malnutrition Alert Muscle Mass (Non-Severe) Mild Depletion Is there a minimum of two criteria No selected? Query Text:Check all the applicable criteria. A minimum of two criteria are recommended for diagnosis of either severe or non-severe malnutrition. Malnutrition Related to Morbid Obesity Malnutrition related to morbid obesity No Intervention/Recommendation Comments 1. Continue with current diet as ordered. Assist pt with meals and encourage oral intake. 2. Monitor PO intake, wt, labs and skin integrity 3. F/U as high risk in 2-3 days, 08/27-08/28 Expected Outcomes/Goals Expected Outcomes/Goals 1. PO intake to meet at least 75% of nutritional needs. 2. Wt stability, skin to remain intact, labs to approach WNL.
[2017-09-11] MEDS: AMINO ACIDS IV SCH (16:22)
[2017-09-11] MEDS: MULTIVITAMIN IV SCH (16:22)
[2017-09-11] MEDS: DEXT 10% IV SCH (16:22)
[2017-09-12 06:28] LABS: % BASOPHILS 0.6 % (0.0-2.0); % EOSINOPHILS 0.2 % (0.0-5.0); % LYMPHOCYTES 8.8 % (20.0-50.0); % MONOCYTES 3.7 % (2.0-10.0); % NEUTROPHILS 86.7 % (40.0-80.0); HEMOGLOBIN 10.4 gm/dL (12-16); LYMPHOCYTE ABSOLUTE 0.6 Th/cmm (1.5-3.0); MEAN CELL VOLUME 89.5 fl (81-100); MEAN CORPUSCULAR HEMOGLOBIN 30.1 pg (27.0-31.0); MEAN CORPUSCULAR HGB CONC 33.6 pg (28.0-36.0); MEAN PLATELET VOLUME 8.7 fl; MONOCYTE ABSOLUTE 0.3 Th/cmm (0.3-1.0); NEUTROPHILE ABSOLUTE 6.2 Th/cmm (1.8-8.0); PLATELET COUNT 255 Th/cmm (150-400); RED BLOOD COUNT 3.47 Mil/cmm (3.80-5.20); RED CELL DISTRIBUTION WIDTH 15.8 % (11.5-20.0); WHITE BLOOD COUNT 7.1 Th/cmm (4.8-10.8)
[2017-09-12 06:49] LABS: ANION GAP 9.9 (7.0-16.0); BUN - UREA NITROGEN 24 mg/dL (7-25); CALCIUM SERUM 9.9 mg/dL (8.6-10.3); CARBON DIOXIDE 26.7 mEq/L (21.0-31.0); CHLORIDE 107 mEq/L (98-107); CREATININE - SERUM 0.7 mg/dL (0.6-1.2); GFR AFRICAN-AMERICAN > 60.0 ml/min (>90); GFR NON AFRICAN-AMERICAN > 60.0 ml/min; GLUCOSE 109 mg/dL (70-105); MAGNESIUM 2.1 mg/dL (1.9-2.7); POTASSIUM SERUM 3.6 mEq/L (3.5-5.1); SODIUM SERUM 140 mEq/L (136-145)
[2017-09-12] MEDS: INSULIN ASPART SLIDING SCALE 100 UNITS/ML UNIT SUBQ SCH ×3 (07:18→22:27)
[2017-09-12] MEDS: Ammonium Lactate Cream 140 gm Tube TP SCH (11:42)
--- NOTE | 2017-09-12 12:15 | Internal Medicine Prog Note ---
Internal Medicine Subjective - Subjective Service Date: 09/12/17 Patient is:: awake, eyes closed, in bed, confused Patient Complaints of:: congestion Per staff patient has:: no adverse event, poor appetite, unstable gait, agitated , combative, refusing care, refusing labs Internal Medicine Objective - Results Result Diagrams: 09/12/17 06:20 09/12/17 06:20 Recent Labs: Laboratory Last Values WBC 7.1 Th/cmm (4.8-10.8) 09/12/17 06:20 RBC 3.47 Mil/cmm (3.80-5.20) L 09/12/17 06:20 Hgb 10.4 gm/dL (12-16) L 09/12/17 06:20 Hct 31.0 % (41.0-60) L 09/12/17 06:20 MCV 89.5 fl (81-100) 09/12/17 06:20 MCH 30.1 pg (27.0-31.0) 09/12/17 06:20 MCHC Differential 33.6 pg (28.0-36.0) 09/12/17 06:20 RDW 15.8 % (11.5-20.0) 09/12/17 06:20 Plt Count 255 Th/cmm (150-400) 09/12/17 06:20 MPV 8.7 fl 09/12/17 06:20 Neutrophils % 86.7 % (40.0-80.0) H 09/12/17 06:20 Lymphocytes % 8.8 % (20.0-50.0) L 09/12/17 06:20 Monocytes % 3.7 % (2.0-10.0) 09/12/17 06:20 Eosinophils % 0.2 % (0.0-5.0) 09/12/17 06:20 Basophils % 0.6 % (0.0-2.0) 09/12/17 06:20 Sodium 140 mEq/L (136-145) 09/12/17 06:20 Potassium 3.6 mEq/L (3.5-5.1) 09/12/17 06:20 Chloride 107 mEq/L (98-107) 09/12/17 06:20 Carbon Dioxide 26.7 mEq/L (21.0-31.0) 09/12/17 06:20 Anion Gap 9.9 (7.0-16.0) 09/12/17 06:20 BUN 24 mg/dL (7-25) 09/12/17 06:20 Creatinine 0.7 mg/dL (0.6-1.2) 09/12/17 06:20 Est GFR ( Amer) > 60.0 ml/min (>90) 09/12/17 06:20 Est GFR (Non-Af Amer) > 60.0 ml/min 09/12/17 06:20 BUN/Creatinine Ratio 34.3 09/12/17 06:20 Glucose 109 mg/dL (70-105) H 09/12/17 06:20 POC Glucose 92 MG/DL (70 - 105) 09/11/17 12:34 Calcium 9.9 mg/dL (8.6-10.3) 09/12/17 06:20 Phosphorus 3.0 mg/dL (2.5-5.0) 09/12/17 06:20 Magnesium 2.1 mg/dL (1.9-2.7) 09/12/17 06:20 Total Bilirubin 0.8 mg/dL (0.3-1.0) 09/08/17 05:35 Direct Bilirubin 0.14 mg/dL (0.0-0.2) 09/08/17 05:35 AST 9 U/L (13-39) L 09/08/17 05:35 ALT 7 U/L (7-52) 09/08/17 05:35 Alkaline Phosphatase 68 U/L (34-104) 09/08/17 05:35 Ammonia 43 umol/L (16-53) 09/01/17 05:40 B-Natriuretic Peptide 86.7 pg/mL (5.0-100.0) 08/31/17 05:00 Total Protein 5.7 gm/dL (6.0-8.3) L 09/08/17 05:35 Albumin 3.1 gm/dL (3.7-5.3) L 09/08/17 05:35 Globulin 2.6 gm/dL 09/08/17 05:35 Albumin/Globulin Ratio 1.2 (1.0-1.8) 09/08/17 05:35 Prealbumin 13 09/06/17 06:46 Triglycerides 114 mg/dL (<150) 09/08/17 05:35 Cholesterol 189 mg/dL (<200) 09/08/17 05:35 Vitamin B12 790 pg/mL (232-1245) 09/01/17 05:40 Folic Acid 4.8 ng/mL (>3.0) 09/01/17 05:40 TSH 1.63 uIU/ml (0.34-5.60) 09/01/17 05:40 Urine Source [place] 08/29/17 13:45 Urine Color YELLOW 08/29/17 13:45 Urine Clarity SLIGHTLY [place] (CLEAR) 08/29/17 13:45 Urine pH 7.5 (4.6 - 8.0) 08/29/17 13:45 Ur Specific [place] 1.010 (1.005-1.030) 08/29/17 13:45 Urine Protein NEGATIVE mg/dL (NEGATIVE) 08/29/17 13:45 Urine Glucose (UA) NEGATIVE mg/dL (NEGATIVE) 08/29/17 13:45 Urine Ketones NEGATIVE mg/dL (NEGATIVE) 08/29/17 13:45 Urine Blood TRACE (NEGATIVE) 08/29/17 13:45 Urine Nitrate NEGATIVE (NEGATIVE) 08/29/17 13:45 Urine Bilirubin NEGATIVE (NEGATIVE) 08/29/17 13:45 Urine Urobilinogen 0.2 E.U./dL (0.2 - 1.0) 08/29/17 13:45 Ur Leukocyte Esterase NEGATIVE (NEGATIVE) 08/29/17 13:45 Urine RBC 0-2 /hpf (0-5) 08/29/17 13:45 Urine WBC 0-2 /hpf (0-5) 08/29/17 13:45 Ur Epithelial Cells OCCASIONAL /lpf (FEW) 08/29/17 13:45 Urine Bacteria FEW /hpf (NONE SEEN) 08/29/17 13:45 - Physical Exam Vitals and I&O: Vital Signs Temp 97.6 F 09/12/17 11:50 Pulse 67 09/12/17 11:50 Resp 18 09/12/17 11:50 BP 130/75 09/12/17 11:50 Pulse Ox 98 09/12/17 11:50 Intake & Output 09/11/17 09/12/17 09/12/17 18:59 06:59 18:59 Intake Total 1419 Output Total 400 300 Balance 1019 -300 Weight (lbs) 100 lb 100 lb Intake: Intake, IV Amount 1419 Multivitamin Inj 1 ml In 1419 Amino Acids 4.25% /Dext 10% 1,439 ml @ 60 mls/hr IV .Q24H [facility] Rx#: [id number] Oral 0 Output: Urine 400 300 Other: # Bowel Movements 1 0 Weight Source Bedscale Bedscale Active Medications: Current Medications Acetaminophen (Tylenol) 650 mg GT Q4HR PRN PRN Reason: Pain or Fever >101 Stop: 10/23/17 19:40 Albuterol Sulfate (Albuterol 2.5mg/3ml Neb Ud) 2.5 mg HHN Q4HRT PRN PRN Reason: Shortness of Breath Stop: 10/23/17 19:40 Artificial Tears (Artificial Tears Ophth Soln) 1 drop EACH EYE Q2H PRN PRN Reason: Dry Eye Stop: 11/10/17 10:46 Bisacodyl (Dulcolax 10 Mg Supp) 10 mg RC DAILY PRN PRN Reason: Constipation Stop: 10/23/17 19:40 Dextrose (D50w) 50 ml IVP PRN PRN; Protocol PRN Reason: hypoglycemia protocol Stop: 11/04/17 12:57 Docusate Sodium (Colace) 100 mg GT DAILY PRN PRN Reason: CONSTIPATION Stop: 10/24/17 08:59 Last Admin: 08/27/17 17:38 Dose: 100 mg Heparin Sodium (Porcine) (Heparin) 5,000 units SUBQ Q12HR [facility] Stop: 10/24/17 20:59 Last Admin: 09/12/17 08:44 Dose: Not Given Multivitamins/Minerals 1 ml/ (Amino Acids) 1,440 mls @ 60 mls/hr IV .Q24H [facility] Stop: 11/05/17 15:59 Last Admin: 09/11/17 16:22 Dose: 60 mls/hr Insulin Aspart (Novolog Insulin Sliding Scale) 0 units SUBQ ACHS [facility]; Protocol Stop: 10/23/17 20:59 Last Admin: 09/12/17 11:42 Dose: Not Given Ipratropium [place] (Atrovent Neb 0.5mg/2.5ml) 0.5 mg HHN Q4HRT PRN PRN Reason: Shortness of Breath or Wheeze Stop: 10/23/17 19:40 Lactic Acid (Lac-Hydrin Cream) 1 appl TP DAILY [facility] Stop: 10/24/17 08:59 Last Admin: 09/12/17 11:42 Dose: 1 appl Lorazepam (Ativan) 0.5 mg PO Q6HR PRN; Protocol PRN Reason: Agitation Stop: 10/23/17 19:40 Magnesium Hydroxide (Milk Of Magnesia) 30 ml PO HS PRN PRN Reason: Constipation Stop: 10/23/17 19:40 Megestrol Acetate (Megace) 400 mg PO BID [facility] Stop: 10/24/17 08:59 Last Admin: 09/12/17 08:44 Dose: Not Given Mirtazapine (Remeron) 15 mg PO HS [facility]; Protocol Stop: 10/30/17 20:59 Last Admin: 09/11/17 22:11 Dose: Not Given Miscellaneous (Vte Chemical Prophylaxis Screen/ Admission) 1 ea PRN PRN PRN Reason: PROTOCOL Stop: 10/24/17 09:26 Miscellaneous (Probiotic Screen) 1 ea PRN PRN PRN Reason: PROTOCOL Stop: 10/29/17 08:59 Miscellaneous (Ppn Per Pharmacy) 1 ea PRN PRN PRN Reason: PROTOCOL Stop: 11/04/17 12:41 Olanzapine (Zyprexa) 5 mg PO HS [facility]; Protocol Stop: 10/23/17 20:59 Last Admin: 09/11/17 22:11 Dose: Not Given Sodium Phosphate (Fleet Enema) 135 ml RC DAILY PRN PRN Reason: Constipation Stop: 10/23/17 19:40 Zolpidem Tartrate (Ambien) 5 mg PO HS PRN PRN Reason: Insomnia Stop: 10/23/17 19:40 General: demented, disheveled, thin, cachectic HEENT: NC/AT, PERRLA Neck: Supple, No JVD, No LAD Lungs: congested, chest deformity present Cardiovascular: RRR, Normal S1, Normal S2, with murmur Abdomen: soft, non-tender, thin, positive bowel sound Extremities: excoriation, contracture, deformity Neurological: disorganized, muscle weakness, unable to follow command - Procedures Procedures: Procedures Procedure Code Date RECREATIONAL THERAPY 93.81 11/09/10 Internal Medicine Assmt/Plan - Assessment Assessment: Failure to thrive poor p.o. intake severe protein-caloric malnutrition diabetes congestive heart failure acute on chronic renal insufficiency schizoaffective disorder hypertension hypokalemia dementia legally blind leukocytosis bedbound. noncompliant - Plan Plan: current documentations appropriate for peg placement faxed to conservator. once approved, peg will be scheduled. need to see if patient has an alternative conservator, current conservator will be out of town, need to have consent for PEG GABY. continue with PPn for nutritional support ivf for hydration monitor electrolytes continue current plan of care Nutritional Asmnt/Malnutr-PDOC - Dietary Evaluation Malnutrition Findings (Please click <Entered> for more info): Nutritional Asmnt/Malnutrition Start: 08/25/17 17: 28 Text: Status: Complete Freq: Protocol: Document 08/25/17 17:28 LCHENG (Rec: 08/25/17 17:32 [email or web address]) Nutritional Asmnt/Malnutrition Patient General Information Nutritional Screening High Risk Consult Diagnosis dehydration, FTT Pertinent Medical Hx/Surgical Hx DM, CHF, kidney failure, schizophrenia, HTN, dementia, legally blind, noncompliance Subjective Information Consult received for poor oral intake. Pt seen resting in bed at time of visit. Per nurse note, pt refused breakfast and lunch today. Pt on calorie count noted. Current Diet Order/ Nutrition Support pureed, nectar thin liquid Pertinent Medications D5-0.45ns, colace, novolog, megace Pertinent Labs 7/ K 3.0, glucose 106 Nutritional Hx/Data Height 5 ft 6 in Height (Calculated Centimeters) 167.6 Current Weight (lbs) 111 lb Weight (Calculated Kilograms) 50.3 Weight (Calculated Grams) 44826.8 [place] Body Weight 130 Body Mass Index (BMI) 17.9 Weight Status Underweight GI Symptoms GI Symptoms None Last BM none Skin Integrity/Comment: redness Estimated Nutritional Goals BEE in Kcals: Using Current wt Calories/Kcals/Kg 30-35 Kcals Calculated 9096-7875 Protein: Using Current wt Protein g/k.2 Protein Calculated 60 Fluid: ml 1500-1750ml (1ml/kcal) Nutritional Problem 1. Problem Problem inadequate food intake Etiology pt refusing to eat Signs/Symptoms: PO intake <25% since admission Malnutrition Alert Muscle Mass (Non-Severe) Mild Depletion Is there a minimum of two criteria No selected? Query Text:Check all the applicable criteria. A minimum of two criteria are recommended for diagnosis of either severe or non-severe malnutrition. Malnutrition Related to Morbid Obesity Malnutrition related to morbid obesity No Intervention/Recommendation Comments 1. Continue with current diet as ordered. Assist pt with meals and encourage oral intake. 2. Monitor PO intake, wt, labs and skin integrity 3. F/U as high risk in 2-3 days, 08/27-08/28 Expected Outcomes/Goals Expected Outcomes/Goals 1. PO intake to meet at least 75% of nutritional needs. 2. Wt stability, skin to remain intact, labs to approach WNL.
[2017-09-12] MEDS: AMINO ACIDS IV SCH (20:57)
[2017-09-12] MEDS: DEXT 10% IV SCH (20:57)
[2017-09-12] MEDS: MULTIVITAMIN IV SCH (20:57)
[2017-09-13 06:26] LABS: ANION GAP 8.4 (7.0-16.0); BUN - UREA NITROGEN 25 mg/dL (7-25); CALCIUM SERUM 9.4 mg/dL (8.6-10.3); CARBON DIOXIDE 26.8 mEq/L (21.0-31.0); CHLORIDE 108 mEq/L (98-107); CREATININE - SERUM 0.7 mg/dL (0.6-1.2); GFR AFRICAN-AMERICAN > 60.0 ml/min (>90); GFR NON AFRICAN-AMERICAN > 60.0 ml/min; GLUCOSE 97 mg/dL (70-105); MAGNESIUM 2.2 mg/dL (1.9-2.7); PHOSPHOROUS 3.4 mg/dL (2.5-5.0); POTASSIUM SERUM 4.2 mEq/L (3.5-5.1); SODIUM SERUM 139 mEq/L (136-145)
[2017-09-13 06:27] LABS: % BASOPHILS 1.2 % (0.0-2.0); % EOSINOPHILS 0.6 % (0.0-5.0); % LYMPHOCYTES 16.6 % (20.0-50.0); % MONOCYTES 13.1 % (2.0-10.0); % NEUTROPHILS 68.5 % (40.0-80.0); BASOPHILE ABSOLUTE 0.1 Th/cumm (0-0.2); HEMATOCRIT 30.2 % (41.0-60); HEMOGLOBIN 10.3 gm/dL (12-16); LYMPHOCYTE ABSOLUTE 0.9 Th/cmm (1.5-3.0); MEAN CELL VOLUME 89.7 fl (81-100); MEAN CORPUSCULAR HEMOGLOBIN 30.5 pg (27.0-31.0); MEAN PLATELET VOLUME 9.8 fl; MONOCYTE ABSOLUTE 0.7 Th/cmm (0.3-1.0); NEUTROPHILE ABSOLUTE 3.9 Th/cmm (1.8-8.0); RED BLOOD COUNT 3.37 Mil/cmm (3.80-5.20); RED CELL DISTRIBUTION WIDTH 16.1 % (11.5-20.0)
[2017-09-13 06:29] LABS: PLATELET COUNT 194 Th/cmm (150-400); WHITE BLOOD COUNT 5.6 Th/cmm (4.8-10.8)
[2017-09-13] MEDS: INSULIN ASPART SLIDING SCALE 100 UNITS/ML UNIT SUBQ SCH ×4 (08:36→21:03)
[2017-09-13] MEDS: Ammonium Lactate Cream 140 gm Tube TP SCH (08:40)
--- NOTE | 2017-09-13 13:46 | Internal Medicine Prog Note ---
Internal Medicine Subjective - Subjective Patient seen and examined:: with staff, chart reviewed Patient is:: awake, eyes closed, in bed, confused Patient Complaints of:: congestion Per staff patient has:: no adverse event, poor appetite, unstable gait, agitated , combative, refusing care, refusing labs Internal Medicine Objective - Results Result Diagrams: 09/13/17 06:00 09/13/17 06:00 Recent Labs: Laboratory Last Values WBC 5.6 Th/cmm (4.8-10.8) D 09/13/17 06:00 RBC 3.37 Mil/cmm (3.80-5.20) L 09/13/17 06:00 Hgb 10.3 gm/dL (12-16) L 09/13/17 06:00 Hct 30.2 % (41.0-60) L 09/13/17 06:00 MCV 89.7 fl (81-100) 09/13/17 06:00 MCH 30.5 pg (27.0-31.0) 09/13/17 06:00 MCHC Differential 34.0 pg (28.0-36.0) 09/13/17 06:00 RDW 16.1 % (11.5-20.0) 09/13/17 06:00 Plt Count 194 Th/cmm (150-400) D 09/13/17 06:00 MPV 9.8 fl 09/13/17 06:00 Neutrophils % 68.5 % (40.0-80.0) 09/13/17 06:00 Lymphocytes % 16.6 % (20.0-50.0) L 09/13/17 06:00 Monocytes % 13.1 % (2.0-10.0) H 09/13/17 06:00 Eosinophils % 0.6 % (0.0-5.0) 09/13/17 06:00 Basophils % 1.2 % (0.0-2.0) 09/13/17 06:00 Sodium 139 mEq/L (136-145) 09/13/17 06:00 Potassium 4.2 mEq/L (3.5-5.1) 09/13/17 06:00 Chloride 108 mEq/L (98-107) H 09/13/17 06:00 Carbon Dioxide 26.8 mEq/L (21.0-31.0) 09/13/17 06:00 Anion Gap 8.4 (7.0-16.0) 09/13/17 06:00 BUN 25 mg/dL (7-25) 09/13/17 06:00 Creatinine 0.7 mg/dL (0.6-1.2) 09/13/17 06:00 Est GFR ( Amer) > 60.0 ml/min (>90) 09/13/17 06:00 Est GFR (Non-Af Amer) > 60.0 ml/min 09/13/17 06:00 BUN/Creatinine Ratio 35.7 09/13/17 06:00 Glucose 97 mg/dL (70-105) 09/13/17 06:00 POC Glucose 105 MG/DL (70 - 105) 09/13/17 11:42 Calcium 9.4 mg/dL (8.6-10.3) 09/13/17 06:00 Phosphorus 3.4 mg/dL (2.5-5.0) 09/13/17 06:00 Magnesium 2.2 mg/dL (1.9-2.7) 09/13/17 06:00 Total Bilirubin 0.8 mg/dL (0.3-1.0) 09/08/17 05:35 Direct Bilirubin 0.14 mg/dL (0.0-0.2) 09/08/17 05:35 AST 9 U/L (13-39) L 09/08/17 05:35 ALT 7 U/L (7-52) 09/08/17 05:35 Alkaline Phosphatase 68 U/L (34-104) 09/08/17 05:35 Ammonia 43 umol/L (16-53) 09/01/17 05:40 B-Natriuretic Peptide 86.7 pg/mL (5.0-100.0) 08/31/17 05:00 Total Protein 5.7 gm/dL (6.0-8.3) L 09/08/17 05:35 Albumin 3.1 gm/dL (3.7-5.3) L 09/08/17 05:35 Globulin 2.6 gm/dL 09/08/17 05:35 Albumin/Globulin Ratio 1.2 (1.0-1.8) 09/08/17 05:35 Prealbumin 13 09/06/17 06:46 Triglycerides 114 mg/dL (<150) 09/08/17 05:35 Cholesterol 189 mg/dL (<200) 09/08/17 05:35 Vitamin B12 790 pg/mL (232-1245) 09/01/17 05:40 Folic Acid 4.8 ng/mL (>3.0) 09/01/17 05:40 TSH 1.63 uIU/ml (0.34-5.60) 09/01/17 05:40 Urine Source [place] 08/29/17 13:45 Urine Color YELLOW 08/29/17 13:45 Urine Clarity SLIGHTLY HAZY (CLEAR) 08/29/17 13:45 Urine pH 7.5 (4.6 - 8.0) 08/29/17 13:45 Ur Specific [place] 1.010 (1.005-1.030) 08/29/17 13:45 Urine Protein NEGATIVE mg/dL (NEGATIVE) 08/29/17 13:45 Urine Glucose (UA) NEGATIVE mg/dL (NEGATIVE) 08/29/17 13:45 Urine Ketones NEGATIVE mg/dL (NEGATIVE) 08/29/17 13:45 Urine Blood TRACE (NEGATIVE) 08/29/17 13:45 Urine Nitrate NEGATIVE (NEGATIVE) 08/29/17 13:45 Urine Bilirubin NEGATIVE (NEGATIVE) 08/29/17 13:45 Urine Urobilinogen 0.2 E.U./dL (0.2 - 1.0) 08/29/17 13:45 Ur Leukocyte Esterase NEGATIVE (NEGATIVE) 08/29/17 13:45 Urine RBC 0-2 /hpf (0-5) 08/29/17 13:45 Urine WBC 0-2 /hpf (0-5) 08/29/17 13:45 Ur Epithelial Cells OCCASIONAL /lpf (FEW) 08/29/17 13:45 Urine Bacteria FEW /hpf (NONE SEEN) 08/29/17 13:45 - Physical Exam Vitals and I&O: Vital Signs Temp 97.2 F 09/13/17 11:41 Pulse 79 09/13/17 11:41 Resp 18 09/13/17 11:41 BP 121/73 09/13/17 11:41 Pulse Ox 97 09/13/17 11:41 Intake & Output 09/12/17 09/13/17 09/13/17 18:59 06:59 18:59 Intake Total 2160 720 Output Total 625 850 Balance 1535 -130 Weight (lbs) 45.359 kg 45.359 kg Intake: Intake, IV Amount 1440 Multivitamin Inj 1 ml In 1440 Amino Acids 4.25% /Dext 10% 1,439 ml @ 60 mls/hr IV .Q24H [facility] Rx#: [id number] TPN/PPN 720 720 Output: Urine 625 850 Other: # Bowel Movements 0 Weight Source Bedscale Bedscale Active Medications: Current Medications Acetaminophen (Tylenol) 650 mg GT Q4HR PRN PRN Reason: Pain or Fever >101 Stop: 10/23/17 19:40 Albuterol Sulfate (Albuterol 2.5mg/3ml Neb Ud) 2.5 mg HHN Q4HRT PRN PRN Reason: Shortness of Breath Stop: 10/23/17 19:40 Artificial Tears (Artificial Tears Ophth Soln) 1 drop EACH EYE Q2H PRN PRN Reason: Dry Eye Stop: 11/10/17 10:46 Bisacodyl (Dulcolax 10 Mg Supp) 10 mg RC DAILY PRN PRN Reason: Constipation Stop: 10/23/17 19:40 Dextrose (D50w) 50 ml IVP PRN PRN; Protocol PRN Reason: hypoglycemia protocol Stop: 11/04/17 12:57 Docusate Sodium (Colace) 100 mg GT DAILY PRN PRN Reason: CONSTIPATION Stop: 10/24/17 08:59 Last Admin: 08/27/17 17:38 Dose: 100 mg Heparin Sodium (Porcine) (Heparin) 5,000 units SUBQ Q12HR [facility] Stop: 10/24/17 20:59 Last Admin: 09/13/17 08:56 Dose: Not Given Multivitamins/Minerals 1 ml/ (Amino Acids) 1,440 mls @ 60 mls/hr IV .Q24H [facility] Stop: 11/05/17 15:59 Last Admin: 09/12/17 20:57 Dose: 60 mls/hr Insulin Aspart (Novolog Insulin Sliding Scale) 0 units SUBQ ACHS FOZIA; Protocol Stop: 10/23/17 20:59 Last Admin: 09/13/17 11:53 Dose: Not Given Ipratropium [place] (Atrovent Neb 0.5mg/2.5ml) 0.5 mg HHN Q4HRT PRN PRN Reason: Shortness of Breath or Wheeze Stop: 10/23/17 19:40 Lactic Acid (Lac-Hydrin Cream) 1 appl TP DAILY FOZIA Stop: 10/24/17 08:59 Last Admin: 09/13/17 08:40 Dose: 1 appl Lorazepam (Ativan) 0.5 mg PO Q6HR PRN; Protocol PRN Reason: Agitation Stop: 10/23/17 19:40 Magnesium Hydroxide (Milk Of Magnesia) 30 ml PO HS PRN PRN Reason: Constipation Stop: 10/23/17 19:40 Megestrol Acetate (Megace) 400 mg PO BID FOZ[facility] Stop: 10/24/17 08:59 Last Admin: 09/13/17 08:56 Dose: Not Given Mirtazapine (Remeron) 15 mg PO HS FOZIA; Protocol Stop: 10/30/17 20:59 Last Admin: 09/12/17 20:59 Dose: Not Given Miscellaneous (Vte Chemical Prophylaxis Screen/ Admission) 1 ea MC PRN PRN PRN Reason: PROTOCOL Stop: 10/24/17 09:26 Miscellaneous (Probiotic Screen) 1 ea MC PRN PRN PRN Reason: PROTOCOL Stop: 10/29/17 08:59 Miscellaneous (Ppn Per Pharmacy) 1 ea MC PRN PRN PRN Reason: PPN PER RX Stop: 11/11/17 14:29 Olanzapine (Zyprexa) 5 mg PO HS FOZIA; Protocol Stop: 10/23/17 20:59 Last Admin: 09/12/17 21:00 Dose: Not Given Sodium Phosphate (Fleet Enema) 135 ml RC DAILY PRN PRN Reason: Constipation Stop: 10/23/17 19:40 Zolpidem Tartrate (Ambien) 5 mg PO HS PRN PRN Reason: Insomnia Stop: 10/23/17 19:40 General: demented, disheveled, thin, cachectic HEENT: NC/AT, PERRLA Neck: Supple, No JVD, No LAD Lungs: congested, chest deformity present Cardiovascular: RRR, Normal S1, Normal S2, with murmur Abdomen: soft, non-tender, thin, positive bowel sound Extremities: excoriation, contracture, deformity Neurological: disorganized, muscle weakness, unable to follow command - Procedures Procedures: Procedures Procedure Code Date RECREATIONAL THERAPY 93.81 11/09/10 Internal Medicine Assmt/Plan - Assessment Assessment: ASSESSMENT AND PLAN: Failure to thrive, poor p.o. intake, severe protein-caloric malnutrition, diabetes, congestive heart failure, acute on chronic renal insufficiency, schizoaffective disorder, hypertension, hypokalemia, dementia, legally blind, leukocytosis, and bedbound. - Plan Plan: plan We will continue the patient on oxygen and bronchodilator treatments. We will continue with __ivf__. We will perform calorie count. If intake is poor, he may consider alternative means of feeding. We will try to get all the conservative as far as the advance directive, continue with current care with followup consult and recommendations. Psych is following. Nutritional Asmnt/Malnutr-PDOC - Dietary Evaluation Malnutrition Findings (Please click <Entered> for more info): Nutritional Asmnt/Malnutrition Start: 08/25/17 17: 28 Text: Status: Complete Freq: Protocol: Document 08/25/17 17:28 [email or web address] (Rec: 08/25/17 17:32 [email or web address]) Nutritional Asmnt/Malnutrition Patient General Information Nutritional Screening High Risk Consult Diagnosis dehydration, FTT Pertinent Medical Hx/Surgical Hx DM, CHF, kidney failure, schizophrenia, HTN, dementia, legally blind, noncompliance Subjective Information Consult received for poor oral intake. Pt seen resting in bed at time of visit. Per nurse note, pt refused breakfast and lunch today. Pt on calorie count noted. Current Diet Order/ Nutrition Support pureed, nectar thin liquid Pertinent Medications D5-0.45ns, colace, novolog, megace Pertinent Labs 7/2 K 3.0, glucose 106 Nutritional Hx/Data Height 1.68 m Height (Calculated Centimeters) 167.6 Current Weight (lbs) 50.349 kg Weight (Calculated Kilograms) 50.3 Weight (Calculated Grams) 35302.8 [place] Body Weight 130 Body Mass Index (BMI) 17.9 Weight Status Underweight GI Symptoms GI Symptoms None Last BM none Skin Integrity/Comment: redness Estimated Nutritional Goals BEE in Kcals: Using Current wt Calories/Kcals/Kg 30-35 Kcals Calculated 4800-8341 Protein: Using Current wt Protein g/k.2 Protein Calculated 60 Fluid: ml 1500-1750ml (1ml/kcal) Nutritional Problem 1. Problem Problem inadequate food intake Etiology pt refusing to eat Signs/Symptoms: PO intake <25% since admission Malnutrition Alert Muscle Mass (Non-Severe) Mild Depletion Is there a minimum of two criteria No selected? Query Text:Check all the applicable criteria. A minimum of two criteria are recommended for diagnosis of either severe or non-severe malnutrition. Malnutrition Related to Morbid Obesity Malnutrition related to morbid obesity No Intervention/Recommendation Comments 1. Continue with current diet as ordered. Assist pt with meals and encourage oral intake. 2. Monitor PO intake, wt, labs and skin integrity 3. F/U as high risk in 2-3 days, 08/27-08/28 Expected Outcomes/Goals Expected Outcomes/Goals 1. PO intake to meet at least 75% of nutritional needs. 2. Wt stability, skin to remain intact, labs to approach WNL.
[2017-09-13] MEDS: DEXT 10% IV SCH (16:17)
[2017-09-13] MEDS: AMINO ACIDS IV SCH (16:17)
[2017-09-13] MEDS: MULTIVITAMIN IV SCH (16:17)
[2017-09-14 05:55] LABS: ANION GAP 9.2 (7.0-16.0); BUN - UREA NITROGEN 25 mg/dL (7-25); CALCIUM SERUM 9.3 mg/dL (8.6-10.3); CARBON DIOXIDE 26.1 mEq/L (21.0-31.0); CHLORIDE 107 mEq/L (98-107); CREATININE - SERUM 0.7 mg/dL (0.6-1.2); GFR AFRICAN-AMERICAN > 60.0 ml/min (>90); GFR NON AFRICAN-AMERICAN > 60.0 ml/min; GLUCOSE 114 mg/dL (70-105); MAGNESIUM 2.2 mg/dL (1.9-2.7); PHOSPHOROUS 3.4 mg/dL (2.5-5.0); POTASSIUM SERUM 4.3 mEq/L (3.5-5.1); SODIUM SERUM 138 mEq/L (136-145)
[2017-09-14] MEDS: INSULIN ASPART SLIDING SCALE 100 UNITS/ML UNIT SUBQ SCH ×4 (06:49→22:54)
[2017-09-14] MEDS: Ammonium Lactate Cream 140 gm Tube TP SCH (09:14)
--- NOTE | 2017-09-14 14:31 | Internal Medicine Prog Note ---
Internal Medicine Subjective - Subjective Patient seen and examined:: with staff, chart reviewed Patient is:: awake, eyes closed, in bed, confused Patient Complaints of:: congestion Per staff patient has:: no adverse event, poor appetite, unstable gait, agitated , combative, refusing care, refusing labs Internal Medicine Objective - Results Result Diagrams: 09/13/17 06:00 09/14/17 04:50 Recent Labs: Laboratory Last Values WBC 5.6 Th/cmm (4.8-10.8) D 09/13/17 06:00 RBC 3.37 Mil/cmm (3.80-5.20) L 09/13/17 06:00 Hgb 10.3 gm/dL (12-16) L 09/13/17 06:00 Hct 30.2 % (41.0-60) L 09/13/17 06:00 MCV 89.7 fl (81-100) 09/13/17 06:00 MCH 30.5 pg (27.0-31.0) 09/13/17 06:00 MCHC Differential 34.0 pg (28.0-36.0) 09/13/17 06:00 RDW 16.1 % (11.5-20.0) 09/13/17 06:00 Plt Count 194 Th/cmm (150-400) D 09/13/17 06:00 MPV 9.8 fl 09/13/17 06:00 Neutrophils % 68.5 % (40.0-80.0) 09/13/17 06:00 Lymphocytes % 16.6 % (20.0-50.0) L 09/13/17 06:00 Monocytes % 13.1 % (2.0-10.0) H 09/13/17 06:00 Eosinophils % 0.6 % (0.0-5.0) 09/13/17 06:00 Basophils % 1.2 % (0.0-2.0) 09/13/17 06:00 Sodium 138 mEq/L (136-145) 09/14/17 04:50 Potassium 4.3 mEq/L (3.5-5.1) 09/14/17 04:50 Chloride 107 mEq/L (98-107) 09/14/17 04:50 Carbon Dioxide 26.1 mEq/L (21.0-31.0) 09/14/17 04:50 Anion Gap 9.2 (7.0-16.0) 09/14/17 04:50 BUN 25 mg/dL (7-25) 09/14/17 04:50 Creatinine 0.7 mg/dL (0.6-1.2) 09/14/17 04:50 Est GFR ( Amer) > 60.0 ml/min (>90) 09/14/17 04:50 Est GFR (Non-Af Amer) > 60.0 ml/min 09/14/17 04:50 BUN/Creatinine Ratio 35.7 09/14/17 04:50 Glucose 114 mg/dL (70-105) H 09/14/17 04:50 POC Glucose 120 MG/DL (70 - 105) H 09/13/17 20:56 Calcium 9.3 mg/dL (8.6-10.3) 09/14/17 04:50 Phosphorus 3.4 mg/dL (2.5-5.0) 09/14/17 04:50 Magnesium 2.2 mg/dL (1.9-2.7) 09/14/17 04:50 Total Bilirubin 0.8 mg/dL (0.3-1.0) 09/08/17 05:35 Direct Bilirubin 0.14 mg/dL (0.0-0.2) 09/08/17 05:35 AST 9 U/L (13-39) L 09/08/17 05:35 ALT 7 U/L (7-52) 09/08/17 05:35 Alkaline Phosphatase 68 U/L (34-104) 09/08/17 05:35 Ammonia 43 umol/L (16-53) 09/01/17 05:40 B-Natriuretic Peptide 86.7 pg/mL (5.0-100.0) 08/31/17 05:00 Total Protein 5.7 gm/dL (6.0-8.3) L 09/08/17 05:35 Albumin 3.1 gm/dL (3.7-5.3) L 09/08/17 05:35 Globulin 2.6 gm/dL 09/08/17 05:35 Albumin/Globulin Ratio 1.2 (1.0-1.8) 09/08/17 05:35 Prealbumin 13 09/06/17 06:46 Triglycerides 114 mg/dL (<150) 09/08/17 05:35 Cholesterol 189 mg/dL (<200) 09/08/17 05:35 Vitamin B12 790 pg/mL (232-1245) 09/01/17 05:40 Folic Acid 4.8 ng/mL (>3.0) 09/01/17 05:40 TSH 1.63 uIU/ml (0.34-5.60) 09/01/17 05:40 Urine Source [place] 08/29/17 13:45 Urine Color YELLOW 08/29/17 13:45 Urine Clarity SLIGHTLY HAZY (CLEAR) 08/29/17 13:45 Urine pH 7.5 (4.6 - 8.0) 08/29/17 13:45 Ur Specific [place] 1.010 (1.005-1.030) 08/29/17 13:45 Urine Protein NEGATIVE mg/dL (NEGATIVE) 08/29/17 13:45 Urine Glucose (UA) NEGATIVE mg/dL (NEGATIVE) 08/29/17 13:45 Urine Ketones NEGATIVE mg/dL (NEGATIVE) 08/29/17 13:45 Urine Blood TRACE (NEGATIVE) 08/29/17 13:45 Urine Nitrate NEGATIVE (NEGATIVE) 08/29/17 13:45 Urine Bilirubin NEGATIVE (NEGATIVE) 08/29/17 13:45 Urine Urobilinogen 0.2 E.U./dL (0.2 - 1.0) 08/29/17 13:45 Ur Leukocyte Esterase NEGATIVE (NEGATIVE) 08/29/17 13:45 Urine RBC 0-2 /hpf (0-5) 08/29/17 13:45 Urine WBC 0-2 /hpf (0-5) 08/29/17 13:45 Ur Epithelial Cells OCCASIONAL /lpf (FEW) 08/29/17 13:45 Urine Bacteria FEW /hpf (NONE SEEN) 08/29/17 13:45 - Physical Exam Vitals and I&O: Vital Signs Temp 97.4 F 09/14/17 12:00 Pulse 73 09/14/17 12:00 Resp 19 09/14/17 12:00 BP 121/71 09/14/17 12:00 Pulse Ox 95 09/14/17 12:00 Intake & Output 09/13/17 09/14/17 09/14/17 18:59 06:59 18:59 Intake Total 1160 823 Output Total 1200 800 Balance -40 23 Weight (lbs) 45.359 kg 45.813 kg Intake: Intake, IV Amount 1160 823 Multivitamin Inj 1 ml In 1160 823 Amino Acids 4.25% /Dext 10% 1,439 ml @ 60 mls/hr IV .Q24H [facility] Rx#: [id number] Output: Urine 1200 800 Other: # Bowel Movements 0 0 Weight Source Bedscale Bedscale Active Medications: Current Medications Acetaminophen (Tylenol) 650 mg GT Q4HR PRN PRN Reason: Pain or Fever >101 Stop: 10/23/17 19:40 Albuterol Sulfate (Albuterol 2.5mg/3ml Neb Ud) 2.5 mg HHN Q4HRT PRN PRN Reason: Shortness of Breath Stop: 10/23/17 19:40 Artificial Tears (Artificial Tears Ophth Soln) 1 drop EACH EYE Q2H PRN PRN Reason: Dry Eye Stop: 11/10/17 10:46 Bisacodyl (Dulcolax 10 Mg Supp) 10 mg RC DAILY PRN PRN Reason: Constipation Stop: 10/23/17 19:40 Dextrose (D50w) 50 ml IVP PRN PRN; Protocol PRN Reason: hypoglycemia protocol Stop: 11/04/17 12:57 Docusate Sodium (Colace) 100 mg GT DAILY PRN PRN Reason: CONSTIPATION Stop: 10/24/17 08:59 Last Admin: 08/27/17 17:38 Dose: 100 mg Heparin Sodium (Porcine) (Heparin) 5,000 units SUBQ Q12HR [facility] Stop: 10/24/17 20:59 Last Admin: 09/14/17 09:14 Dose: Not Given Multivitamins/Minerals 1 ml/ (Amino Acids) 1,440 mls @ 60 mls/hr IV .Q24H [facility] Stop: 11/05/17 15:59 Last Infusion: 09/14/17 06:00 Dose: 60 mls/hr Insulin Aspart (Novolog Insulin Sliding Scale) 0 units SUBQ ACHS FOZIA; Protocol Stop: 10/23/17 20:59 Last Admin: 09/14/17 11:35 Dose: Not Given Ipratropium [place] (Atrovent Neb 0.5mg/2.5ml) 0.5 mg HHN Q4HRT PRN PRN Reason: Shortness of Breath or Wheeze Stop: 10/23/17 19:40 Lactic Acid (Lac-Hydrin Cream) 1 appl TP DAILY FOZ[facility] Stop: 10/24/17 08:59 Last Admin: 09/14/17 09:14 Dose: 1 appl Lorazepam (Ativan) 0.5 mg PO Q6HR PRN; Protocol PRN Reason: Agitation Stop: 10/23/17 19:40 Magnesium Hydroxide (Milk Of Magnesia) 30 ml PO HS PRN PRN Reason: Constipation Stop: 10/23/17 19:40 Megestrol Acetate (Megace) 400 mg PO BID [facility] Stop: 10/24/17 08:59 Last Admin: 09/14/17 09:14 Dose: Not Given Mirtazapine (Remeron) 15 mg PO HS FOZIA; Protocol Stop: 10/30/17 20:59 Last Admin: 09/13/17 21:45 Dose: Not Given Miscellaneous (Vte Chemical Prophylaxis Screen/ Admission) 1 ea MC PRN PRN PRN Reason: PROTOCOL Stop: 10/24/17 09:26 Miscellaneous (Probiotic Screen) 1 ea MC PRN PRN PRN Reason: PROTOCOL Stop: 10/29/17 08:59 Miscellaneous (Ppn Per Pharmacy) 1 ea MC PRN PRN PRN Reason: PPN PER RX Stop: 11/11/17 14:29 Olanzapine (Zyprexa) 5 mg PO HS [facility]ZIA; Protocol Stop: 10/23/17 20:59 Last Admin: 09/13/17 21:45 Dose: Not Given Sodium Phosphate (Fleet Enema) 135 ml RC DAILY PRN PRN Reason: Constipation Stop: 10/23/17 19:40 Zolpidem Tartrate (Ambien) 5 mg PO HS PRN PRN Reason: Insomnia Stop: 10/23/17 19:40 General: demented, disheveled, thin, cachectic HEENT: NC/AT, PERRLA Neck: Supple, No JVD, No LAD Lungs: congested, chest deformity present Cardiovascular: RRR, Normal S1, Normal S2, with murmur Abdomen: soft, non-tender, thin, positive bowel sound Extremities: excoriation, contracture, deformity Neurological: disorganized, muscle weakness, unable to follow command - Procedures Procedures: Procedures Procedure Code Date RECREATIONAL THERAPY 93.81 11/09/10 Internal Medicine Assmt/Plan - Assessment Assessment: ASSESSMENT AND PLAN: Failure to thrive, poor p.o. intake, severe protein-caloric malnutrition, diabetes, congestive heart failure, acute on chronic renal insufficiency, schizoaffective disorder, hypertension, hypokalemia, dementia, legally blind, leukocytosis, and bedbound. - Plan Plan: plan We will continue the patient on oxygen and bronchodilator treatments. We will continue with __ivf__. We will perform calorie count. If intake is poor, he may consider alternative means of feeding. We will try to get all the conservative as far as the advance directive, continue with current care with followup consult and recommendations. Psych is following. Nutritional Asmnt/Malnutr-PDOC - Dietary Evaluation Malnutrition Findings (Please click <Entered> for more info): Nutritional Asmnt/Malnutrition Start: 08/25/17 17: 28 Text: Status: Complete Freq: Protocol: Document 08/25/17 17:28 [email or web address] (Rec: 08/25/17 17:32 [email or web address] [email or web address]) Nutritional Asmnt/Malnutrition Patient General Information Nutritional Screening High Risk Consult Diagnosis dehydration, FTT Pertinent Medical Hx/Surgical Hx DM, CHF, kidney failure, schizophrenia, HTN, dementia, legally blind, noncompliance Subjective Information Consult received for poor oral intake. Pt seen resting in bed at time of visit. Per nurse note, pt refused breakfast and lunch today. Pt on calorie count noted. Current Diet Order/ Nutrition Support pureed, nectar thin liquid Pertinent Medications D5-0.45ns, colace, novolog, megace Pertinent Labs 7/2 K 3.0, glucose 106 Nutritional Hx/Data Height 1.68 m Height (Calculated Centimeters) 167.6 Current Weight (lbs) 50.349 kg Weight (Calculated Kilograms) 50.3 Weight (Calculated Grams) 15377.8 [place] Body Weight 130 Body Mass Index (BMI) 17.9 Weight Status Underweight GI Symptoms GI Symptoms None Last BM none Skin Integrity/Comment: redness Estimated Nutritional Goals BEE in Kcals: Using Current wt Calories/Kcals/Kg 30-35 Kcals Calculated 9186-2916 Protein: Using Current wt Protein g/k.2 Protein Calculated 60 Fluid: ml 1500-1750ml (1ml/kcal) Nutritional Problem 1. Problem Problem inadequate food intake Etiology pt refusing to eat Signs/Symptoms: PO intake <25% since admission Malnutrition Alert Muscle Mass (Non-Severe) Mild Depletion Is there a minimum of two criteria No selected? Query Text:Check all the applicable criteria. A minimum of two criteria are recommended for diagnosis of either severe or non-severe malnutrition. Malnutrition Related to Morbid Obesity Malnutrition related to morbid obesity No Intervention/Recommendation Comments 1. Continue with current diet as ordered. Assist pt with meals and encourage oral intake. 2. Monitor PO intake, wt, labs and skin integrity 3. F/U as high risk in 2-3 days, 08/27-08/28 Expected Outcomes/Goals Expected Outcomes/Goals 1. PO intake to meet at least 75% of nutritional needs. 2. Wt stability, skin to remain intact, labs to approach WNL.
[2017-09-14] MEDS: DEXT 10% IV SCH (16:27)
[2017-09-14] MEDS: MULTIVITAMIN IV SCH (16:27)
[2017-09-14] MEDS: AMINO ACIDS IV SCH (16:27)
[2017-09-15 06:48] LABS: ANION GAP 8.6 (7.0-16.0); BUN - UREA NITROGEN 29 mg/dL (7-25); CALCIUM SERUM 9.5 mg/dL (8.6-10.3); CHLORIDE 105 mEq/L (98-107); CREATININE - SERUM 0.8 mg/dL (0.6-1.2); GFR AFRICAN-AMERICAN > 60.0 ml/min (>90); GFR NON AFRICAN-AMERICAN > 60.0 ml/min; GLUCOSE 117 mg/dL (70-105); MAGNESIUM 2.3 mg/dL (1.9-2.7); PHOSPHOROUS 3.7 mg/dL (2.5-5.0); POTASSIUM SERUM 4.6 mEq/L (3.5-5.1); SODIUM SERUM 136 mEq/L (136-145)
[2017-09-15] MEDS: INSULIN ASPART SLIDING SCALE 100 UNITS/ML UNIT SUBQ SCH ×4 (09:08→21:20)
[2017-09-15] MEDS: Ammonium Lactate Cream 140 gm Tube TP SCH (09:13)
--- NOTE | 2017-09-15 14:07 | Internal Medicine Prog Note ---
Internal Medicine Subjective - Subjective Service Date: 09/15/17 Patient is:: awake, eyes closed, in bed, confused Patient Complaints of:: congestion Per staff patient has:: no adverse event, poor appetite, unstable gait, agitated , combative, refusing care, refusing labs Internal Medicine Objective - Results Result Diagrams: 09/13/17 06:00 09/15/17 06:18 Recent Labs: Laboratory Last Values WBC 5.6 Th/cmm (4.8-10.8) D 09/13/17 06:00 RBC 3.37 Mil/cmm (3.80-5.20) L 09/13/17 06:00 Hgb 10.3 gm/dL (12-16) L 09/13/17 06:00 Hct 30.2 % (41.0-60) L 09/13/17 06:00 MCV 89.7 fl (81-100) 09/13/17 06:00 MCH 30.5 pg (27.0-31.0) 09/13/17 06:00 MCHC Differential 34.0 pg (28.0-36.0) 09/13/17 06:00 RDW 16.1 % (11.5-20.0) 09/13/17 06:00 Plt Count 194 Th/cmm (150-400) D 09/13/17 06:00 MPV 9.8 fl 09/13/17 06:00 Neutrophils % 68.5 % (40.0-80.0) 09/13/17 06:00 Lymphocytes % 16.6 % (20.0-50.0) L 09/13/17 06:00 Monocytes % 13.1 % (2.0-10.0) H 09/13/17 06:00 Eosinophils % 0.6 % (0.0-5.0) 09/13/17 06:00 Basophils % 1.2 % (0.0-2.0) 09/13/17 06:00 Sodium 136 mEq/L (136-145) 09/15/17 06:18 Potassium 4.6 mEq/L (3.5-5.1) 09/15/17 06:18 Chloride 105 mEq/L (98-107) 09/15/17 06:18 Carbon Dioxide 27.0 mEq/L (21.0-31.0) 09/15/17 06:18 Anion Gap 8.6 (7.0-16.0) 09/15/17 06:18 BUN 29 mg/dL (7-25) H 09/15/17 06:18 Creatinine 0.8 mg/dL (0.6-1.2) 09/15/17 06:18 Est GFR ( Amer) > 60.0 ml/min (>90) 09/15/17 06:18 Est GFR (Non-Af Amer) > 60.0 ml/min 09/15/17 06:18 BUN/Creatinine Ratio 36.3 09/15/17 06:18 Glucose 117 mg/dL (70-105) H 09/15/17 06:18 POC Glucose 120 MG/DL (70 - 105) H 09/13/17 20:56 Calcium 9.5 mg/dL (8.6-10.3) 09/15/17 06:18 Phosphorus 3.7 mg/dL (2.5-5.0) 09/15/17 06:18 Magnesium 2.3 mg/dL (1.9-2.7) 09/15/17 06:18 Total Bilirubin 0.8 mg/dL (0.3-1.0) 09/08/17 05:35 Direct Bilirubin 0.14 mg/dL (0.0-0.2) 09/08/17 05:35 AST 9 U/L (13-39) L 09/08/17 05:35 ALT 7 U/L (7-52) 09/08/17 05:35 Alkaline Phosphatase 68 U/L (34-104) 09/08/17 05:35 Ammonia 43 umol/L (16-53) 09/01/17 05:40 B-Natriuretic Peptide 86.7 pg/mL (5.0-100.0) 08/31/17 05:00 Total Protein 5.7 gm/dL (6.0-8.3) L 09/08/17 05:35 Albumin 3.1 gm/dL (3.7-5.3) L 09/08/17 05:35 Globulin 2.6 gm/dL 09/08/17 05:35 Albumin/Globulin Ratio 1.2 (1.0-1.8) 09/08/17 05:35 Prealbumin 13 07/14/18 06:46 Triglycerides 114 mg/dL (<150) 09/08/17 05:35 Cholesterol 189 mg/dL (<200) 09/08/17 05:35 Vitamin B12 790 pg/mL (232-1245) 09/01/17 05:40 Folic Acid 4.8 ng/mL (>3.0) 09/01/17 05:40 TSH 1.63 uIU/ml (0.34-5.60) 09/01/17 05:40 Urine Source [place] 08/29/17 13:45 Urine Color YELLOW 08/29/17 13:45 Urine Clarity SLIGHTLY HAZY (CLEAR) 08/29/17 13:45 Urine pH 7.5 (4.6 - 8.0) 08/29/17 13:45 Ur Specific [place] 1.010 (1.005-1.030) 08/29/17 13:45 Urine Protein NEGATIVE mg/dL (NEGATIVE) 08/29/17 13:45 Urine Glucose (UA) NEGATIVE mg/dL (NEGATIVE) 08/29/17 13:45 Urine Ketones NEGATIVE mg/dL (NEGATIVE) 08/29/17 13:45 Urine Blood TRACE (NEGATIVE) 08/29/17 13:45 Urine Nitrate NEGATIVE (NEGATIVE) 08/29/17 13:45 Urine Bilirubin NEGATIVE (NEGATIVE) 08/29/17 13:45 Urine Urobilinogen 0.2 E.U./dL (0.2 - 1.0) 08/29/17 13:45 Ur Leukocyte Esterase NEGATIVE (NEGATIVE) 08/29/17 13:45 Urine RBC 0-2 /hpf (0-5) 08/29/17 13:45 Urine WBC 0-2 /hpf (0-5) 08/29/17 13:45 Ur Epithelial Cells OCCASIONAL /lpf (FEW) 08/29/17 13:45 Urine Bacteria FEW /hpf (NONE SEEN) 08/29/17 13:45 - Physical Exam Vitals and I&O: Vital Signs Temp 98.0 F 09/15/17 07:47 Pulse 99 09/15/17 07:50 Resp 16 09/15/17 07:50 BP 116/70 09/15/17 07:47 Pulse Ox 95 09/15/17 07:50 Intake & Output 09/14/17 09/15/17 09/15/17 18:59 06:59 18:59 Intake Total 617 Output Total 800 Balance -183 Weight (lbs) 101 lb 101 lb Intake: Intake, IV Amount 617 Multivitamin Inj 1 ml In 617 Amino Acids 4.25% /Dext 10% 1,439 ml @ 60 mls/hr IV .Q24H [facility] Rx#: [id number] Output: Urine 800 Other: # Bowel Movements 0 Weight Source Bedscale Estimated Active Medications: Current Medications Acetaminophen (Tylenol) 650 mg GT Q4HR PRN PRN Reason: Pain or Fever >101 Stop: 10/23/17 19:40 Albuterol Sulfate (Albuterol 2.5mg/3ml Neb Ud) 2.5 mg HHN Q4HRT PRN PRN Reason: Shortness of Breath Stop: 10/23/17 19:40 Artificial Tears (Artificial Tears Ophth Soln) 1 drop EACH EYE Q2H PRN PRN Reason: Dry Eye Stop: 11/10/17 10:46 Bisacodyl (Dulcolax 10 Mg Supp) 10 mg RC DAILY PRN PRN Reason: Constipation Stop: 10/23/17 19:40 Dextrose (D50w) 50 ml IVP PRN PRN; Protocol PRN Reason: hypoglycemia protocol Stop: 11/04/17 12:57 Docusate Sodium (Colace) 100 mg GT DAILY PRN PRN Reason: CONSTIPATION Stop: 10/24/17 08:59 Last Admin: 08/27/17 17:38 Dose: 100 mg Heparin Sodium (Porcine) (Heparin) 5,000 units SUBQ Q12HR [facility] Stop: 10/24/17 20:59 Last Admin: 09/15/17 09:13 Dose: Not Given Multivitamins/Minerals 1 ml/ (Amino Acids) 1,440 mls @ 60 mls/hr IV .Q24H [facility] Stop: 11/05/17 15:59 Last Admin: 09/14/17 16:27 Dose: 60 mls/hr Insulin Aspart (Novolog Insulin Sliding Scale) 0 units SUBQ ACHS [facility]; Protocol Stop: 10/23/17 20:59 Last Admin: 09/15/17 09:08 Dose: Not Given Ipratropium [place] (Atrovent Neb 0.5mg/2.5ml) 0.5 mg HHN Q4HRT PRN PRN Reason: Shortness of Breath or Wheeze Stop: 10/23/17 19:40 Lactic Acid (Lac-Hydrin Cream) 1 appl TP DAILY FOZIA Stop: 10/24/17 08:59 Last Admin: 09/15/17 09:13 Dose: 1 appl Lorazepam (Ativan) 0.5 mg PO Q6HR PRN; Protocol PRN Reason: Agitation Stop: 10/23/17 19:40 Magnesium Hydroxide (Milk Of Magnesia) 30 ml PO HS PRN PRN Reason: Constipation Stop: 10/23/17 19:40 Megestrol Acetate (Megace) 400 mg PO BID [facility] Stop: 10/24/17 08:59 Last Admin: 09/15/17 09:13 Dose: Not Given Mirtazapine (Remeron) 15 mg PO HS [facility]; Protocol Stop: 10/30/17 20:59 Last Admin: 09/14/17 22:54 Dose: Not Given Miscellaneous (Vte Chemical Prophylaxis Screen/ Admission) 1 ea MC PRN PRN PRN Reason: PROTOCOL Stop: 10/24/17 09:26 Miscellaneous (Probiotic Screen) 1 ea PRN PRN PRN Reason: PROTOCOL Stop: 10/29/17 08:59 Miscellaneous (Ppn Per Pharmacy) 1 ea MC PRN PRN PRN Reason: PPN PER RX Stop: 11/11/17 14:29 Olanzapine (Zyprexa) 5 mg PO HS [facility]; Protocol Stop: 10/23/17 20:59 Last Admin: 09/14/17 22:54 Dose: Not Given Sodium Phosphate (Fleet Enema) 135 ml RC DAILY PRN PRN Reason: Constipation Stop: 10/23/17 19:40 Zolpidem Tartrate (Ambien) 5 mg PO HS PRN PRN Reason: Insomnia Stop: 10/23/17 19:40 General: demented, disheveled, thin, cachectic HEENT: NC/AT, PERRLA Neck: Supple, No JVD, No LAD Lungs: congested, chest deformity present Cardiovascular: RRR, Normal S1, Normal S2, with murmur Abdomen: soft, non-tender, thin, positive bowel sound Extremities: excoriation, contracture, deformity Neurological: disorganized, muscle weakness, unable to follow command - Procedures Procedures: Procedures Procedure Code Date RECREATIONAL THERAPY 93.81 11/09/10 Internal Medicine Assmt/Plan - Assessment Assessment: Failure to thrive poor p.o. intake severe protein-caloric malnutrition diabetes congestive heart failure acute on chronic renal insufficiency schizoaffective disorder hypertension hypokalemia dementia legally blind leukocytosis bedbound. noncompliant - Plan Plan: current documentation that were filled up last week was rejected by conservator (Amber Hawthorne) on section "11" for alternative measures for PEG. I specified none, if patient was to continue with PPN patient is ask risk for infection, as for NGT patient as been refusing. May need a Medical professional who can better understand the document that was faxed to the conservator. continue with PPn for nutritional support ivf for hydration monitor electrolytes continue current plan of care Nutritional Asmnt/Malnutr-PDOC - Dietary Evaluation Malnutrition Findings (Please click <Entered> for more info): Nutritional Asmnt/Malnutrition Start: 08/25/17 17: 28 Text: Status: Complete Freq: Protocol: Document 08/25/17 17:28 LCHENG (Rec: 08/25/17 17:32 [email or web address]) Nutritional Asmnt/Malnutrition Patient General Information Nutritional Screening High Risk Consult Diagnosis dehydration, FTT Pertinent Medical Hx/Surgical Hx DM, CHF, kidney failure, schizophrenia, HTN, dementia, legally blind, noncompliance Subjective Information Consult received for poor oral intake. Pt seen resting in bed at time of visit. Per nurse note, pt refused breakfast and lunch today. Pt on calorie count noted. Current Diet Order/ Nutrition Support pureed, nectar thin liquid Pertinent Medications D5-0.45ns, colace, novolog, megace Pertinent Labs 7/2 K 3.0, glucose 106 Nutritional Hx/Data Height 5 ft 6 in Height (Calculated Centimeters) 167.6 Current Weight (lbs) 111 lb Weight (Calculated Kilograms) 50.3 Weight (Calculated Grams) 45553.8 [place] Body Weight 130 Body Mass Index (BMI) 17.9 Weight Status Underweight GI Symptoms GI Symptoms None Last BM none Skin Integrity/Comment: redness Estimated Nutritional Goals BEE in Kcals: Using Current wt Calories/Kcals/Kg 30-35 Kcals Calculated 5075-5973 Protein: Using Current wt Protein g/k.2 Protein Calculated 60 Fluid: ml 1500-1750ml (1ml/kcal) Nutritional Problem 1. Problem Problem inadequate food intake Etiology pt refusing to eat Signs/Symptoms: PO intake <25% since admission Malnutrition Alert Muscle Mass (Non-Severe) Mild Depletion Is there a minimum of two criteria No selected? Query Text:Check all the applicable criteria. A minimum of two criteria are recommended for diagnosis of either severe or non-severe malnutrition. Malnutrition Related to Morbid Obesity Malnutrition related to morbid obesity No Intervention/Recommendation Comments 1. Continue with current diet as ordered. Assist pt with meals and encourage oral intake. 2. Monitor PO intake, wt, labs and skin integrity 3. F/U as high risk in 2-3 days, 08/27-08/28 Expected Outcomes/Goals Expected Outcomes/Goals 1. PO intake to meet at least 75% of nutritional needs. 2. Wt stability, skin to remain intact, labs to approach WNL.
[2017-09-15] MEDS: MULTIVITAMIN IV SCH (22:43)
[2017-09-15] MEDS: DEXT 10% IV SCH (22:43)
[2017-09-15] MEDS: AMINO ACIDS IV SCH (22:43)
[2017-09-16 06:14] LABS: ALB/GLOB RATIO 1.1 (1.0-1.8); ALBUMIN 3.4 gm/dL (3.7-5.3); ALKALINE PHOSPHATASE 71 U/L (34-104); BILIRUBIN,TOTAL 0.7 mg/dL (0.3-1.0); BUN - UREA NITROGEN 28 mg/dL (7-25); CALCIUM SERUM 10.4 mg/dL (8.6-10.3); CARBON DIOXIDE 28.7 mEq/L (21.0-31.0); CHLORIDE 106 mEq/L (98-107); CREATININE - SERUM 0.9 mg/dL (0.6-1.2); GFR AFRICAN-AMERICAN > 60.0 ml/min (>90); GFR NON AFRICAN-AMERICAN > 60.0 ml/min; GLUCOSE 82 mg/dL (70-105); POTASSIUM SERUM 4.7 mEq/L (3.5-5.1); SGOT 15 U/L (13-39); SGPT/ALT 14 U/L (7-52); SODIUM SERUM 141 mEq/L (136-145); TOTAL PROTEIN,SERUM 6.4 gm/dL (6.0-8.3)
[2017-09-16 06:29] LABS: % BASOPHILS 0.4 % (0.0-2.0); % EOSINOPHILS 1.2 % (0.0-5.0); % LYMPHOCYTES 19.8 % (20.0-50.0); % MONOCYTES 7.4 % (2.0-10.0); % NEUTROPHILS 71.2 % (40.0-80.0); EOSINOPHILE ABSOLUTE 0.1 Th/cmm (0.1-0.4); HEMOGLOBIN 10.4 gm/dL (12-16); LYMPHOCYTE ABSOLUTE 1.3 Th/cmm (1.5-3.0); MEAN CELL VOLUME 90.1 fl (81-100); MEAN CORPUSCULAR HEMOGLOBIN 30.1 pg (27.0-31.0); MEAN CORPUSCULAR HGB CONC 33.4 pg (28.0-36.0); MEAN PLATELET VOLUME 9.7 fl; MONOCYTE ABSOLUTE 0.5 Th/cmm (0.3-1.0); NEUTROPHILE ABSOLUTE 4.5 Th/cmm (1.8-8.0); PLATELET COUNT 308 Th/cmm (150-400); RED BLOOD COUNT 3.44 Mil/cmm (3.80-5.20); RED CELL DISTRIBUTION WIDTH 16.3 % (11.5-20.0); WHITE BLOOD COUNT 6.4 Th/cmm (4.8-10.8)
[2017-09-16] MEDS: INSULIN ASPART SLIDING SCALE 100 UNITS/ML UNIT SUBQ SCH ×3 (08:07→21:04)
[2017-09-16 08:59] LABS: MAGNESIUM 2.5 mg/dL (1.9-2.7); PHOSPHOROUS 3.9 mg/dL (2.5-5.0)
[2017-09-16] MEDS: Ammonium Lactate Cream 140 gm Tube TP SCH (09:30)
[2017-09-16] MEDS: AMINO ACIDS IV SCH (17:09)
[2017-09-16] MEDS: MULTIVITAMIN IV SCH (17:09)
[2017-09-16] MEDS: DEXT 10% IV SCH (17:09)
--- NOTE | 2017-09-16 18:59 | Internal Medicine Prog Note ---
Internal Medicine Subjective - Subjective Service Date: 09/16/17 Patient is:: awake, eyes closed, in bed, confused Patient Complaints of:: congestion Per staff patient has:: no adverse event, poor appetite, unstable gait, agitated , combative, refusing care, refusing labs Internal Medicine Objective - Results Result Diagrams: 09/16/17 05:45 09/16/17 05:45 Recent Labs: Laboratory Last Values WBC 6.4 Th/cmm (4.8-10.8) 09/16/17 05:45 RBC 3.44 Mil/cmm (3.80-5.20) L 09/16/17 05:45 Hgb 10.4 gm/dL (12-16) L 09/16/17 05:45 Hct 31.0 % (41.0-60) L 09/16/17 05:45 MCV 90.1 fl (81-100) 09/16/17 05:45 MCH 30.1 pg (27.0-31.0) 09/16/17 05:45 MCHC Differential 33.4 pg (28.0-36.0) 09/16/17 05:45 RDW 16.3 % (11.5-20.0) 09/16/17 05:45 Plt Count 308 Th/cmm (150-400) 09/16/17 05:45 MPV 9.7 fl 09/16/17 05:45 Neutrophils % 71.2 % (40.0-80.0) 09/16/17 05:45 Lymphocytes % 19.8 % (20.0-50.0) L 09/16/17 05:45 Monocytes % 7.4 % (2.0-10.0) 09/16/17 05:45 Eosinophils % 1.2 % (0.0-5.0) 09/16/17 05:45 Basophils % 0.4 % (0.0-2.0) 09/16/17 05:45 Sodium 141 mEq/L (136-145) 09/16/17 05:45 Potassium 4.7 mEq/L (3.5-5.1) 09/16/17 05:45 Chloride 106 mEq/L (98-107) 09/16/17 05:45 Carbon Dioxide 28.7 mEq/L (21.0-31.0) 09/16/17 05:45 Anion Gap 11.0 (7.0-16.0) 09/16/17 05:45 BUN 28 mg/dL (7-25) H 09/16/17 05:45 Creatinine 0.9 mg/dL (0.6-1.2) 09/16/17 05:45 Est GFR ( Amer) > 60.0 ml/min (>90) 09/16/17 05:45 Est GFR (Non-Af Amer) > 60.0 ml/min 09/16/17 05:45 BUN/Creatinine Ratio 31.1 09/16/17 05:45 Glucose 82 mg/dL (70-105) 09/16/17 05:45 POC Glucose 120 MG/DL (70 - 105) H 09/13/17 20:56 Calcium 10.4 mg/dL (8.6-10.3) H 09/16/17 05:45 Phosphorus 3.9 mg/dL (2.5-5.0) 09/16/17 05:45 Magnesium 2.5 mg/dL (1.9-2.7) 09/16/17 05:45 Total Bilirubin 0.7 mg/dL (0.3-1.0) 09/16/17 05:45 Direct Bilirubin 0.14 mg/dL (0.0-0.2) 09/08/17 05:35 AST 15 U/L (13-39) 09/16/17 05:45 ALT 14 U/L (7-52) 09/16/17 05:45 Alkaline Phosphatase 71 U/L (34-104) 09/16/17 05:45 Ammonia 43 umol/L (16-53) 09/01/17 05:40 B-Natriuretic Peptide 86.7 pg/mL (5.0-100.0) 08/31/17 05:00 Total Protein 6.4 gm/dL (6.0-8.3) 09/16/17 05:45 Albumin 3.4 gm/dL (3.7-5.3) L 09/16/17 05:45 Globulin 3.0 gm/dL 09/16/17 05:45 Albumin/Globulin Ratio 1.1 (1.0-1.8) 09/16/17 05:45 Prealbumin 13 09/06/17 06:46 Triglycerides 100 mg/dL (<150) 09/16/17 05:45 Cholesterol 190 mg/dL (<200) 09/16/17 05:45 Vitamin B12 790 pg/mL (232-1245) 09/01/17 05:40 Folic Acid 4.8 ng/mL (>3.0) 09/01/17 05:40 TSH 1.63 uIU/ml (0.34-5.60) 09/01/17 05:40 Urine Source [place] 08/29/17 13:45 Urine Color YELLOW 08/29/17 13:45 Urine Clarity SLIGHTLY [place] (CLEAR) 08/29/17 13:45 Urine pH 7.5 (4.6 - 8.0) 08/29/17 13:45 Ur Specific [place] 1.010 (1.005-1.030) 08/29/17 13:45 Urine Protein NEGATIVE mg/dL (NEGATIVE) 08/29/17 13:45 Urine Glucose (UA) NEGATIVE mg/dL (NEGATIVE) 08/29/17 13:45 Urine Ketones NEGATIVE mg/dL (NEGATIVE) 08/29/17 13:45 Urine Blood TRACE (NEGATIVE) 08/29/17 13:45 Urine Nitrate NEGATIVE (NEGATIVE) 08/29/17 13:45 Urine Bilirubin NEGATIVE (NEGATIVE) 08/29/17 13:45 Urine Urobilinogen 0.2 E.U./dL (0.2 - 1.0) 08/29/17 13:45 Ur Leukocyte Esterase NEGATIVE (NEGATIVE) 08/29/17 13:45 Urine RBC 0-2 /hpf (0-5) 08/29/17 13:45 Urine WBC 0-2 /hpf (0-5) 08/29/17 13:45 Ur Epithelial Cells OCCASIONAL /lpf (FEW) 08/29/17 13:45 Urine Bacteria FEW /hpf (NONE SEEN) 08/29/17 13:45 - Physical Exam Vitals and I&O: Vital Signs Temp 97.3 F 09/16/17 18:00 Pulse 76 09/16/17 18:00 Resp 18 09/16/17 18:00 BP 118/70 09/16/17 18:00 Pulse Ox 94 09/16/17 12:00 Intake & Output 09/15/17 09/16/17 09/16/17 18:59 06:59 18:59 Intake Total 2100 0 Output Total 1150 850 Balance 950 -850 Weight (lbs) 102 lb 102 lb Intake: Intake, IV Amount 1440 Multivitamin Inj 1 ml In 1440 Amino Acids 4.25% /Dext 10% 1,439 ml @ 60 mls/hr IV .Q24H [facility] Rx#: [id number] Oral 0 TPN/PPN 660 Output: Urine 1150 850 Other: # Bowel Movements 0 Weight Source Bedscale Bedscale Active Medications: Current Medications Acetaminophen (Tylenol) 650 mg GT Q4HR PRN PRN Reason: Pain or Fever >101 Stop: 10/23/17 19:40 Albuterol Sulfate (Albuterol 2.5mg/3ml Neb Ud) 2.5 mg HHN Q4HRT PRN PRN Reason: Shortness of Breath Stop: 10/23/17 19:40 Artificial Tears (Artificial Tears Ophth Soln) 1 drop EACH EYE Q2H PRN PRN Reason: Dry Eye Stop: 11/10/17 10:46 Bisacodyl (Dulcolax 10 Mg Supp) 10 mg RC DAILY PRN PRN Reason: Constipation Stop: 10/23/17 19:40 Dextrose (D50w) 50 ml IVP PRN PRN; Protocol PRN Reason: hypoglycemia protocol Stop: 11/04/17 12:57 Docusate Sodium (Colace) 100 mg GT DAILY PRN PRN Reason: CONSTIPATION Stop: 10/24/17 08:59 Last Admin: 08/27/17 17:38 Dose: 100 mg Heparin Sodium (Porcine) (Heparin) 5,000 units SUBQ Q12HR [facility] Stop: 10/24/17 20:59 Last Admin: 09/16/17 09:00 Dose: Not Given Multivitamins/Minerals 1 ml/ (Amino Acids) 1,440 mls @ 60 mls/hr IV .Q24H [facility] Stop: 11/05/17 15:59 Last Admin: 09/16/17 17:09 Dose: Not Given Insulin Aspart (Novolog Insulin Sliding Scale) 0 units SUBQ ACHS [facility]; Protocol Stop: 10/23/17 20:59 Last Admin: 09/16/17 13:23 Dose: Not Given Ipratropium [place] (Atrovent Neb 0.5mg/2.5ml) 0.5 mg HHN Q4HRT PRN PRN Reason: Shortness of Breath or Wheeze Stop: 10/23/17 19:40 Lactic Acid (Lac-Hydrin Cream) 1 appl TP DAILY [facility] Stop: 10/24/17 08:59 Last Admin: 09/16/17 09:30 Dose: Not Given Lorazepam (Ativan) 0.5 mg PO Q6HR PRN; Protocol PRN Reason: Agitation Stop: 10/23/17 19:40 Magnesium Hydroxide (Milk Of Magnesia) 30 ml PO HS PRN PRN Reason: Constipation Stop: 10/23/17 19:40 Megestrol Acetate (Megace) 400 mg PO BID FOZIA Stop: 10/24/17 08:59 Last Admin: 09/16/17 17:08 Dose: Not Given Mirtazapine (Remeron) 15 mg PO HS [facility]; Protocol Stop: 10/30/17 20:59 Last Admin: 09/15/17 21:19 Dose: Not Given Miscellaneous (Vte Chemical Prophylaxis Screen/ Admission) 1 ea PRN PRN PRN Reason: PROTOCOL Stop: 10/24/17 09:26 Miscellaneous (Probiotic Screen) 1 ea PRN PRN PRN Reason: PROTOCOL Stop: 10/29/17 08:59 Miscellaneous (Ppn Per Pharmacy) 1 ea MC PRN PRN PRN Reason: PPN PER RX Stop: 11/11/17 14:29 Olanzapine (Zyprexa) 5 mg PO HS [facility]; Protocol Stop: 10/23/17 20:59 Last Admin: 09/15/17 21:19 Dose: Not Given Sodium Phosphate (Fleet Enema) 135 ml RC DAILY PRN PRN Reason: Constipation Stop: 10/23/17 19:40 Zolpidem Tartrate (Ambien) 5 mg PO HS PRN PRN Reason: Insomnia Stop: 10/23/17 19:40 General: demented, disheveled, thin, cachectic HEENT: NC/AT, PERRLA Neck: Supple, No JVD, No LAD Lungs: congested, chest deformity present Cardiovascular: RRR, Normal S1, Normal S2, with murmur Abdomen: soft, non-tender, thin, positive bowel sound Extremities: excoriation, contracture, deformity Neurological: disorganized, muscle weakness, unable to follow command - Procedures Procedures: Procedures Procedure Code Date RECREATIONAL THERAPY 93.81 11/09/10 Internal Medicine Assmt/Plan - Assessment Assessment: Failure to thrive poor p.o. intake severe protein-caloric malnutrition diabetes congestive heart failure acute on chronic renal insufficiency schizoaffective disorder hypertension hypokalemia dementia legally blind leukocytosis bedbound. noncompliant - Plan Plan: still awaiting for conservator for peg placement continue with PPn for nutritional support ivf for hydration monitor electrolytes continue current plan of care Nutritional Asmnt/Malnutr-PDOC - Dietary Evaluation Malnutrition Findings (Please click <Entered> for more info): Nutritional Asmnt/Malnutrition Start: 08/25/17 17: 28 Text: Status: Complete Freq: Protocol: Document 08/25/17 17:28 LCHENG (Rec: 08/25/17 17:32 [email or web address]) Nutritional Asmnt/Malnutrition Patient General Information Nutritional Screening High Risk Consult Diagnosis dehydration, FTT Pertinent Medical Hx/Surgical Hx DM, CHF, kidney failure, schizophrenia, HTN, dementia, legally blind, noncompliance Subjective Information Consult received for poor oral intake. Pt seen resting in bed at time of visit. Per nurse note, pt refused breakfast and lunch today. Pt on calorie count noted. Current Diet Order/ Nutrition Support pureed, nectar thin liquid Pertinent Medications D5-0.45ns, colace, novolog, megace Pertinent Labs 7/2 K 3.0, glucose 106 Nutritional Hx/Data Height 5 ft 6 in Height (Calculated Centimeters) 167.6 Current Weight (lbs) 111 lb Weight (Calculated Kilograms) 50.3 Weight (Calculated Grams) 70724.8 [place] Body Weight 130 Body Mass Index (BMI) 17.9 Weight Status Underweight GI Symptoms GI Symptoms None Last BM none Skin Integrity/Comment: redness Estimated Nutritional Goals BEE in Kcals: Using Current wt Calories/Kcals/Kg 30-35 Kcals Calculated 8880-6125 Protein: Using Current wt Protein g/k.2 Protein Calculated 60 Fluid: ml 1500-1750ml (1ml/kcal) Nutritional Problem 1. Problem Problem inadequate food intake Etiology pt refusing to eat Signs/Symptoms: PO intake <25% since admission Malnutrition Alert Muscle Mass (Non-Severe) Mild Depletion Is there a minimum of two criteria No selected? Query Text:Check all the applicable criteria. A minimum of two criteria are recommended for diagnosis of either severe or non-severe malnutrition. Malnutrition Related to Morbid Obesity Malnutrition related to morbid obesity No Intervention/Recommendation Comments 1. Continue with current diet as ordered. Assist pt with meals and encourage oral intake. 2. Monitor PO intake, wt, labs and skin integrity 3. F/U as high risk in 2-3 days, 08/27-08/28 Expected Outcomes/Goals Expected Outcomes/Goals 1. PO intake to meet at least 75% of nutritional needs. 2. Wt stability, skin to remain intact, labs to approach WNL.
[2017-09-17 05:47] LABS: ALB/GLOB RATIO 1.1 (1.0-1.8); ALBUMIN 3.2 gm/dL (3.7-5.3); ALKALINE PHOSPHATASE 66 U/L (34-104); ANION GAP 10.7 (7.0-16.0); BILIRUBIN,TOTAL 0.5 mg/dL (0.3-1.0); BUN - UREA NITROGEN 29 mg/dL (7-25); CALCIUM SERUM 9.7 mg/dL (8.6-10.3); CARBON DIOXIDE 26.9 mEq/L (21.0-31.0); CHLORIDE 105 mEq/L (98-107); CREATININE - SERUM 0.9 mg/dL (0.6-1.2); GFR AFRICAN-AMERICAN > 60.0 ml/min (>90); GFR NON AFRICAN-AMERICAN > 60.0 ml/min; GLUCOSE 118 mg/dL (70-105); MAGNESIUM 2.3 mg/dL (1.9-2.7); PHOSPHOROUS 3.7 mg/dL (2.5-5.0); POTASSIUM SERUM 4.6 mEq/L (3.5-5.1); SGOT 13 U/L (13-39); SGPT/ALT 12 U/L (7-52); SODIUM SERUM 138 mEq/L (136-145); TOTAL PROTEIN,SERUM 6.1 gm/dL (6.0-8.3)
[2017-09-17] MEDS: INSULIN ASPART SLIDING SCALE 100 UNITS/ML UNIT SUBQ SCH ×4 (08:13→21:07)
[2017-09-17] MEDS: Ammonium Lactate Cream 140 gm Tube TP SCH (09:23)
--- NOTE | 2017-09-17 14:09 | Internal Medicine Prog Note ---
Internal Medicine Subjective - Subjective Service Date: 09/17/17 Patient is:: awake, eyes closed, in bed, confused Patient Complaints of:: congestion Per staff patient has:: no adverse event, poor appetite, unstable gait, agitated , combative, refusing care, refusing labs Internal Medicine Objective - Results Result Diagrams: 09/16/17 05:45 09/17/17 05:15 Recent Labs: Laboratory Last Values WBC 6.4 Th/cmm (4.8-10.8) 09/16/17 05:45 RBC 3.44 Mil/cmm (3.80-5.20) L 09/16/17 05:45 Hgb 10.4 gm/dL (12-16) L 09/16/17 05:45 Hct 31.0 % (41.0-60) L 09/16/17 05:45 MCV 90.1 fl (81-100) 09/16/17 05:45 MCH 30.1 pg (27.0-31.0) 09/16/17 05:45 MCHC Differential 33.4 pg (28.0-36.0) 09/16/17 05:45 RDW 16.3 % (11.5-20.0) 09/16/17 05:45 Plt Count 308 Th/cmm (150-400) 09/16/17 05:45 MPV 9.7 fl 09/16/17 05:45 Neutrophils % 71.2 % (40.0-80.0) 09/16/17 05:45 Lymphocytes % 19.8 % (20.0-50.0) L 09/16/17 05:45 Monocytes % 7.4 % (2.0-10.0) 09/16/17 05:45 Eosinophils % 1.2 % (0.0-5.0) 09/16/17 05:45 Basophils % 0.4 % (0.0-2.0) 09/16/17 05:45 Sodium 138 mEq/L (136-145) 09/17/17 05:15 Potassium 4.6 mEq/L (3.5-5.1) 09/17/17 05:15 Chloride 105 mEq/L (98-107) 09/17/17 05:15 Carbon Dioxide 26.9 mEq/L (21.0-31.0) 09/17/17 05:15 Anion Gap 10.7 (7.0-16.0) 09/17/17 05:15 BUN 29 mg/dL (7-25) H 09/17/17 05:15 Creatinine 0.9 mg/dL (0.6-1.2) 09/17/17 05:15 Est GFR ( Amer) > 60.0 ml/min (>90) 09/17/17 05:15 Est GFR (Non-Af Amer) > 60.0 ml/min 09/17/17 05:15 BUN/Creatinine Ratio 32.2 09/17/17 05:15 Glucose 118 mg/dL (70-105) H 09/17/17 05:15 POC Glucose 120 MG/DL (70 - 105) H 09/13/17 20:56 Calcium 9.7 mg/dL (8.6-10.3) 09/17/17 05:15 Phosphorus 3.7 mg/dL (2.5-5.0) 09/17/17 05:15 Magnesium 2.3 mg/dL (1.9-2.7) 09/17/17 05:15 Total Bilirubin 0.5 mg/dL (0.3-1.0) 09/17/17 05:15 Direct Bilirubin 0.14 mg/dL (0.0-0.2) 09/08/17 05:35 AST 13 U/L (13-39) 09/17/17 05:15 ALT 12 U/L (7-52) 09/17/17 05:15 Alkaline Phosphatase 66 U/L (34-104) 09/17/17 05:15 Ammonia 43 umol/L (16-53) 09/01/17 05:40 B-Natriuretic Peptide 86.7 pg/mL (5.0-100.0) 08/31/17 05:00 Total Protein 6.1 gm/dL (6.0-8.3) 09/17/17 05:15 Albumin 3.2 gm/dL (3.7-5.3) L 09/17/17 05:15 Globulin 2.9 gm/dL 09/17/17 05:15 Albumin/Globulin Ratio 1.1 (1.0-1.8) 09/17/17 05:15 Prealbumin 14 mg/dL (10-36) 09/16/17 05:45 Triglycerides 100 mg/dL (<150) 09/16/17 05:45 Cholesterol 190 mg/dL (<200) 09/16/17 05:45 Vitamin B12 790 pg/mL (232-1245) 09/01/17 05:40 Folic Acid 4.8 ng/mL (>3.0) 09/01/17 05:40 TSH 1.63 uIU/ml (0.34-5.60) 09/01/17 05:40 Urine Source [place] 08/29/17 13:45 Urine Color YELLOW 08/29/17 13:45 Urine Clarity SLIGHTLY HAZY (CLEAR) 08/29/17 13:45 Urine pH 7.5 (4.6 - 8.0) 08/29/17 13:45 Ur Specific [place] 1.010 (1.005-1.030) 08/29/17 13:45 Urine Protein NEGATIVE mg/dL (NEGATIVE) 08/29/17 13:45 Urine Glucose (UA) NEGATIVE mg/dL (NEGATIVE) 08/29/17 13:45 Urine Ketones NEGATIVE mg/dL (NEGATIVE) 08/29/17 13:45 Urine Blood TRACE (NEGATIVE) 08/29/17 13:45 Urine Nitrate NEGATIVE (NEGATIVE) 08/29/17 13:45 Urine Bilirubin NEGATIVE (NEGATIVE) 08/29/17 13:45 Urine Urobilinogen 0.2 E.U./dL (0.2 - 1.0) 08/29/17 13:45 Ur Leukocyte Esterase NEGATIVE (NEGATIVE) 08/29/17 13:45 Urine RBC 0-2 /hpf (0-5) 08/29/17 13:45 Urine WBC 0-2 /hpf (0-5) 08/29/17 13:45 Ur Epithelial Cells OCCASIONAL /lpf (FEW) 08/29/17 13:45 Urine Bacteria FEW /hpf (NONE SEEN) 08/29/17 13:45 - Physical Exam Vitals and I&O: Vital Signs Temp 97.7 F 09/17/17 13:54 Pulse 60 09/17/17 13:54 Resp 18 09/17/17 13:54 BP 115/73 09/17/17 13:54 Pulse Ox 100 09/17/17 11:51 Intake & Output 09/16/17 09/17/17 09/17/17 18:59 06:59 18:59 Intake Total 0 Output Total 850 600 600 Balance -850 -600 -600 Weight (lbs) 102 lb 99 lb 99 lb Intake: Oral 0 Output: Urine 850 600 600 Other: Weight Source Bedscale Bedscale Bedscale Active Medications: Current Medications Acetaminophen (Tylenol) 650 mg GT Q4HR PRN PRN Reason: Pain or Fever >101 Stop: 10/23/17 19:40 Albuterol Sulfate (Albuterol 2.5mg/3ml Neb Ud) 2.5 mg HHN Q4HRT PRN PRN Reason: Shortness of Breath Stop: 10/23/17 19:40 Artificial Tears (Artificial Tears Ophth Soln) 1 drop EACH EYE Q2H PRN PRN Reason: Dry Eye Stop: 11/10/17 10:46 Bisacodyl (Dulcolax 10 Mg Supp) 10 mg RC DAILY PRN PRN Reason: Constipation Stop: 10/23/17 19:40 Dextrose (D50w) 50 ml IVP PRN PRN; Protocol PRN Reason: hypoglycemia protocol Stop: 11/04/17 12:57 Docusate Sodium (Colace) 100 mg GT DAILY PRN PRN Reason: CONSTIPATION Stop: 10/24/17 08:59 Last Admin: 08/27/17 17:38 Dose: 100 mg Heparin Sodium (Porcine) (Heparin) 5,000 units SUBQ Q12HR [facility] Stop: 10/24/17 20:59 Last Admin: 09/17/17 09:23 Dose: Not Given Multivitamins/Minerals 1 ml/ (Amino Acids) 1,440 mls @ 60 mls/hr IV .Q24H [facility] Stop: 09/17/17 15:59 Last Admin: 09/16/17 17:09 Dose: Not Given Multivitamins/Minerals 10 ml/Dextrose/ Amino Acids/Electrolytes/ Fat Emulsion Intravenous 1,680 mls @ 70 mls/hr IV .Q24H [facility] Stop: 10/16/17 15:59 Insulin Aspart (Novolog Insulin Sliding Scale) 0 units SUBQ ACHS [facility]; Protocol Stop: 10/23/17 20:59 Last Admin: 09/17/17 11:59 Dose: Not Given Ipratropium [place] (Atrovent Neb 0.5mg/2.5ml) 0.5 mg HHN Q4HRT PRN PRN Reason: Shortness of Breath or Wheeze Stop: 10/23/17 19:40 Lactic Acid (Lac-Hydrin Cream) 1 appl TP DAILY [facility] Stop: 10/24/17 08:59 Last Admin: 09/17/17 09:23 Dose: Not Given Lorazepam (Ativan) 0.5 mg PO Q6HR PRN; Protocol PRN Reason: Agitation Stop: 10/23/17 19:40 Magnesium Hydroxide (Milk Of Magnesia) 30 ml PO HS PRN PRN Reason: Constipation Stop: 10/23/17 19:40 Megestrol Acetate (Megace) 400 mg PO BID FOZ[facility] Stop: 10/24/17 08:59 Last Admin: 09/17/17 09:13 Dose: Not Given Mirtazapine (Remeron) 15 mg PO HS [facility]; Protocol Stop: 10/30/17 20:59 Last Admin: 09/16/17 21:05 Dose: Not Given Miscellaneous (Vte Chemical Prophylaxis Screen/ Admission) 1 ea PRN PRN PRN Reason: PROTOCOL Stop: 10/24/17 09:26 Miscellaneous (Probiotic Screen) 1 ea PRN PRN PRN Reason: PROTOCOL Stop: 10/29/17 08:59 Miscellaneous (Ppn Per Pharmacy) 1 ea PRN PRN PRN Reason: PPN PER RX Stop: 11/11/17 14:29 Olanzapine (Zyprexa) 5 mg PO HS [facility]; Protocol Stop: 10/23/17 20:59 Last Admin: 09/16/17 21:06 Dose: Not Given Sodium Phosphate (Fleet Enema) 135 ml RC DAILY PRN PRN Reason: Constipation Stop: 10/23/17 19:40 Zolpidem Tartrate (Ambien) 5 mg PO HS PRN PRN Reason: Insomnia Stop: 10/23/17 19:40 General: demented, disheveled, thin, cachectic HEENT: NC/AT, PERRLA Neck: Supple, No JVD, No LAD Lungs: congested, chest deformity present Cardiovascular: RRR, Normal S1, Normal S2, with murmur Abdomen: soft, non-tender, thin, positive bowel sound Extremities: excoriation, contracture, deformity Neurological: disorganized, muscle weakness, unable to follow command - Procedures Procedures: Procedures Procedure Code Date RECREATIONAL THERAPY 93.81 11/09/10 Internal Medicine Assmt/Plan - Assessment Assessment: Failure to thrive poor p.o. intake severe protein-caloric malnutrition diabetes congestive heart failure acute on chronic renal insufficiency schizoaffective disorder hypertension hypokalemia dementia legally blind leukocytosis bedbound. noncompliant - Plan Plan: still awaiting for conservator for peg placement continue with PPn for nutritional support ivf for hydration monitor electrolytes continue current plan of care Nutritional Asmnt/Malnutr-PDOC - Dietary Evaluation Malnutrition Findings (Please click <Entered> for more info): Nutritional Asmnt/Malnutrition Start: 08/25/17 17: 28 Text: Status: Complete Freq: Protocol: Document 08/25/17 17:28 LCHENG (Rec: 08/25/17 17:32 [email or web address]) Nutritional Asmnt/Malnutrition Patient General Information Nutritional Screening High Risk Consult Diagnosis dehydration, FTT Pertinent Medical Hx/Surgical Hx DM, CHF, kidney failure, schizophrenia, HTN, dementia, legally blind, noncompliance Subjective Information Consult received for poor oral intake. Pt seen resting in bed at time of visit. Per nurse note, pt refused breakfast and lunch today. Pt on calorie count noted. Current Diet Order/ Nutrition Support pureed, nectar thin liquid Pertinent Medications D5-0.45ns, colace, novolog, megace Pertinent Labs 7/2 K 3.0, glucose 106 Nutritional Hx/Data Height 5 ft 6 in Height (Calculated Centimeters) 167.6 Current Weight (lbs) 111 lb Weight (Calculated Kilograms) 50.3 Weight (Calculated Grams) 57782.8 [place] Body Weight 130 Body Mass Index (BMI) 17.9 Weight Status Underweight GI Symptoms GI Symptoms None Last BM none Skin Integrity/Comment: redness Estimated Nutritional Goals BEE in Kcals: Using Current wt Calories/Kcals/Kg 30-35 Kcals Calculated 8070-6495 Protein: Using Current wt Protein g/k.2 Protein Calculated 60 Fluid: ml 1500-1750ml (1ml/kcal) Nutritional Problem 1. Problem Problem inadequate food intake Etiology pt refusing to eat Signs/Symptoms: PO intake <25% since admission Malnutrition Alert Muscle Mass (Non-Severe) Mild Depletion Is there a minimum of two criteria No selected? Query Text:Check all the applicable criteria. A minimum of two criteria are recommended for diagnosis of either severe or non-severe malnutrition. Malnutrition Related to Morbid Obesity Malnutrition related to morbid obesity No Intervention/Recommendation Comments 1. Continue with current diet as ordered. Assist pt with meals and encourage oral intake. 2. Monitor PO intake, wt, labs and skin integrity 3. F/U as high risk in 2-3 days, 08/27-08/28 Expected Outcomes/Goals Expected Outcomes/Goals 1. PO intake to meet at least 75% of nutritional needs. 2. Wt stability, skin to remain intact, labs to approach WNL.
[2017-09-17] MEDS ORDERED: TPN 8.5%-70% CUSTOM IV SCH (16:00)
[2017-09-18 05:58] LABS: % BASOPHILS 0.9 % (0.0-2.0); % EOSINOPHILS 0.9 % (0.0-5.0); % MONOCYTES 7.1 % (2.0-10.0); % NEUTROPHILS 72.1 % (40.0-80.0); BASOPHILE ABSOLUTE 0.1 Th/cumm (0-0.2); EOSINOPHILE ABSOLUTE 0.1 Th/cmm (0.1-0.4); HEMATOCRIT 32.3 % (41.0-60); LYMPHOCYTE ABSOLUTE 1.3 Th/cmm (1.5-3.0); MEAN CELL VOLUME 89.8 fl (81-100); MEAN CORPUSCULAR HEMOGLOBIN 30.6 pg (27.0-31.0); MEAN CORPUSCULAR HGB CONC 34.1 pg (28.0-36.0); MEAN PLATELET VOLUME 10.7 fl; MONOCYTE ABSOLUTE 0.5 Th/cmm (0.3-1.0); NEUTROPHILE ABSOLUTE 4.8 Th/cmm (1.8-8.0); PLATELET COUNT 268 Th/cmm (150-400); RED CELL DISTRIBUTION WIDTH 16.4 % (11.5-20.0); WHITE BLOOD COUNT 6.8 Th/cmm (4.8-10.8)
[2017-09-18 06:30] LABS: ALB/GLOB RATIO 1.2 (1.0-1.8); ALBUMIN 3.3 gm/dL (3.7-5.3); ALKALINE PHOSPHATASE 62 U/L (34-104); ANION GAP 11.2 (7.0-16.0); BILIRUBIN,TOTAL 0.5 mg/dL (0.3-1.0); BUN - UREA NITROGEN 30 mg/dL (7-25); CALCIUM SERUM 9.8 mg/dL (8.6-10.3); CARBON DIOXIDE 26.7 mEq/L (21.0-31.0); CHLORIDE 105 mEq/L (98-107); CREATININE - SERUM 0.8 mg/dL (0.6-1.2); GFR AFRICAN-AMERICAN > 60.0 ml/min (>90); GFR NON AFRICAN-AMERICAN > 60.0 ml/min; GLUCOSE 118 mg/dL (70-105); MAGNESIUM 2.4 mg/dL (1.9-2.7); PHOSPHOROUS 3.4 mg/dL (2.5-5.0); POTASSIUM SERUM 4.9 mEq/L (3.5-5.1); SGOT 16 U/L (13-39); SGPT/ALT 13 U/L (7-52); SODIUM SERUM 138 mEq/L (136-145); TOTAL PROTEIN,SERUM 6.1 gm/dL (6.0-8.3)
[2017-09-18] MEDS: INSULIN ASPART SLIDING SCALE 100 UNITS/ML UNIT SUBQ SCH ×4 (08:06→21:25)
[2017-09-18] MEDS: Ammonium Lactate Cream 140 gm Tube TP SCH (10:24)
[2017-09-18] MEDS ORDERED: TPN 8.5%-70% CUSTOM IV SCH ×2 (10:39→16:00)
[2017-09-19 06:19] LABS: ALBUMIN 2.8 gm/dL (3.7-5.3); ALKALINE PHOSPHATASE 53 U/L (34-104); ANION GAP 13.8 (7.0-16.0); BILIRUBIN,TOTAL 0.4 mg/dL (0.3-1.0); BUN - UREA NITROGEN 29 mg/dL (7-25); CALCIUM SERUM 9.2 mg/dL (8.6-10.3); CARBON DIOXIDE 21.1 mEq/L (21.0-31.0); CHLORIDE 106 mEq/L (98-107); CREATININE - SERUM 0.8 mg/dL (0.6-1.2); GFR AFRICAN-AMERICAN > 60.0 ml/min (>90); GFR NON AFRICAN-AMERICAN > 60.0 ml/min; GLUCOSE 115 mg/dL (70-105); MAGNESIUM 2.3 mg/dL (1.9-2.7); PHOSPHOROUS 3.9 mg/dL (2.5-5.0); POTASSIUM SERUM 3.9 mEq/L (3.5-5.1); SGOT 16 U/L (13-39); SGPT/ALT 11 U/L (7-52); SODIUM SERUM 137 mEq/L (136-145); TOTAL PROTEIN,SERUM 5.5 gm/dL (6.0-8.3)
[2017-09-19] MEDS: INSULIN ASPART SLIDING SCALE 100 UNITS/ML UNIT SUBQ SCH ×2 (08:26→18:12)
[2017-09-19] MEDS: Ammonium Lactate Cream 140 gm Tube TP SCH (08:26)
--- NOTE | 2017-09-19 12:41 | Internal Medicine Prog Note ---
Internal Medicine Subjective - Subjective Service Date: 09/19/17 Patient is:: in bed, other (lethargic) Per staff patient has:: poor appetite, poor oral intake Internal Medicine Objective - Results Result Diagrams: 09/18/17 04:55 09/19/17 05:00 Recent Labs: Laboratory Last Values WBC 6.8 Th/cmm (4.8-10.8) 09/18/17 04:55 RBC 3.60 Mil/cmm (3.80-5.20) L 09/18/17 04:55 Hgb 11.0 gm/dL (12-16) L 09/18/17 04:55 Hct 32.3 % (41.0-60) L 09/18/17 04:55 MCV 89.8 fl (81-100) 09/18/17 04:55 MCH 30.6 pg (27.0-31.0) 09/18/17 04:55 MCHC Differential 34.1 pg (28.0-36.0) 09/18/17 04:55 RDW 16.4 % (11.5-20.0) 09/18/17 04:55 Plt Count 268 Th/cmm (150-400) 09/18/17 04:55 MPV 10.7 fl 09/18/17 04:55 Neutrophils % 72.1 % (40.0-80.0) 09/18/17 04:55 Lymphocytes % 19.0 % (20.0-50.0) L 09/18/17 04:55 Monocytes % 7.1 % (2.0-10.0) 09/18/17 04:55 Eosinophils % 0.9 % (0.0-5.0) 09/18/17 04:55 Basophils % 0.9 % (0.0-2.0) 09/18/17 04:55 Sodium 137 mEq/L (136-145) 09/19/17 05:00 Potassium 3.9 mEq/L (3.5-5.1) 09/19/17 05:00 Chloride 106 mEq/L (98-107) 09/19/17 05:00 Carbon Dioxide 21.1 mEq/L (21.0-31.0) 09/19/17 05:00 Anion Gap 13.8 (7.0-16.0) 09/19/17 05:00 BUN 29 mg/dL (7-25) H 09/19/17 05:00 Creatinine 0.8 mg/dL (0.6-1.2) 09/19/17 05:00 Est GFR ( Amer) > 60.0 ml/min (>90) 09/19/17 05:00 Est GFR (Non-Af Amer) > 60.0 ml/min 09/19/17 05:00 BUN/Creatinine Ratio 36.3 09/19/17 05:00 Glucose 115 mg/dL (70-105) H 09/19/17 05:00 POC Glucose 113 MG/DL (70 - 105) H 09/19/17 11:42 Calcium 9.2 mg/dL (8.6-10.3) 09/19/17 05:00 Phosphorus 3.9 mg/dL (2.5-5.0) 09/19/17 05:00 Magnesium 2.3 mg/dL (1.9-2.7) 09/19/17 05:00 Total Bilirubin 0.4 mg/dL (0.3-1.0) 09/19/17 05:00 Direct Bilirubin 0.14 mg/dL (0.0-0.2) 09/08/17 05:35 AST 16 U/L (13-39) 09/19/17 05:00 ALT 11 U/L (7-52) 09/19/17 05:00 Alkaline Phosphatase 53 U/L (34-104) 09/19/17 05:00 Ammonia 43 umol/L (16-53) 09/01/17 05:40 B-Natriuretic Peptide 86.7 pg/mL (5.0-100.0) 08/31/17 05:00 Total Protein 5.5 gm/dL (6.0-8.3) L 09/19/17 05:00 Albumin 2.8 gm/dL (3.7-5.3) L 09/19/17 05:00 Globulin 2.7 gm/dL 09/19/17 05:00 Albumin/Globulin Ratio 1.0 (1.0-1.8) 09/19/17 05:00 Prealbumin 14 mg/dL (10-36) 09/16/17 05:45 Triglycerides 100 mg/dL (<150) 09/16/17 05:45 Cholesterol 190 mg/dL (<200) 09/16/17 05:45 Vitamin B12 790 pg/mL (232-1245) 09/01/17 05:40 Folic Acid 4.8 ng/mL (>3.0) 09/01/17 05:40 TSH 1.63 uIU/ml (0.34-5.60) 09/01/17 05:40 Urine Source [place] 08/29/17 13:45 Urine Color YELLOW 08/29/17 13:45 Urine Clarity SLIGHTLY HAZY (CLEAR) 08/29/17 13:45 Urine pH 7.5 (4.6 - 8.0) 08/29/17 13:45 Ur Specific [place] 1.010 (1.005-1.030) 08/29/17 13:45 Urine Protein NEGATIVE mg/dL (NEGATIVE) 08/29/17 13:45 Urine Glucose (UA) NEGATIVE mg/dL (NEGATIVE) 08/29/17 13:45 Urine Ketones NEGATIVE mg/dL (NEGATIVE) 08/29/17 13:45 Urine Blood TRACE (NEGATIVE) 08/29/17 13:45 Urine Nitrate NEGATIVE (NEGATIVE) 08/29/17 13:45 Urine Bilirubin NEGATIVE (NEGATIVE) 08/29/17 13:45 Urine Urobilinogen 0.2 E.U./dL (0.2 - 1.0) 08/29/17 13:45 Ur Leukocyte Esterase NEGATIVE (NEGATIVE) 08/29/17 13:45 Urine RBC 0-2 /hpf (0-5) 08/29/17 13:45 Urine WBC 0-2 /hpf (0-5) 08/29/17 13:45 Ur Epithelial Cells OCCASIONAL /lpf (FEW) 08/29/17 13:45 Urine Bacteria FEW /hpf (NONE SEEN) 08/29/17 13:45 Vancomycin Trough < 2.0 ug/mL (5-10) L 09/17/17 21:34 - Physical Exam Vitals and I&O: Vital Signs Temp 97.0 F 09/19/17 08:00 Pulse 58 09/19/17 08:00 Resp 18 09/19/17 08:00 BP 100/61 09/19/17 08:00 Pulse Ox 96 09/19/17 07:00 Intake & Output 09/18/17 09/19/17 09/19/17 18:59 06:59 18:59 Intake Total 0 Output Total 550 Balance -550 Weight (lbs) 94 lb 94 lb Intake: Oral 0 Output: Urine 550 Other: # Voids 650 # Bowel Movements 0 Weight Source Bedscale Bedscale Active Medications: Current Medications Acetaminophen (Tylenol) 650 mg GT Q4HR PRN PRN Reason: Pain or Fever >101 Stop: 10/23/17 19:40 Albuterol Sulfate (Albuterol 2.5mg/3ml Neb Ud) 2.5 mg HHN Q4HRT PRN PRN Reason: Shortness of Breath Stop: 10/23/17 19:40 Artificial Tears (Artificial Tears Ophth Soln) 1 drop EACH EYE Q2H PRN PRN Reason: Dry Eye Stop: 11/10/17 10:46 Bisacodyl (Dulcolax 10 Mg Supp) 10 mg RC DAILY PRN PRN Reason: Constipation Stop: 10/23/17 19:40 Dextrose (D50w) 50 ml IVP PRN PRN; Protocol PRN Reason: hypoglycemia protocol Stop: 11/04/17 12:57 Docusate Sodium (Colace) 100 mg GT DAILY PRN PRN Reason: CONSTIPATION Stop: 10/24/17 08:59 Last Admin: 08/27/17 17:38 Dose: 100 mg Heparin Sodium (Porcine) (Heparin) 5,000 units SUBQ Q12HR FOZIA Stop: 10/24/17 20:59 Last Admin: 09/19/17 08:26 Dose: Not Given Multivitamins/Minerals 10 ml/Dextrose/ Amino Acids/Electrolytes/ Fat Emulsion Intravenous 1,680 mls @ 70 mls/hr IV .Q24H [facility] Stop: 09/19/17 16:00 Last Admin: 09/18/17 15:56 Dose: 70 mls/hr Multivitamins/Minerals 10 ml/Dextrose/ Amino Acids/Electrolytes/ Fat Emulsion Intravenous 1,920 mls @ 80 mls/hr IV .Q24H [facility] Stop: 10/17/17 15:59 Insulin Aspart (Novolog Insulin Sliding Scale) 0 units SUBQ ACHS FOZIA; Protocol Stop: 10/23/17 20:59 Last Admin: 09/19/17 08:26 Dose: Not Given Ipratropium [place] (Atrovent Neb 0.5mg/2.5ml) 0.5 mg HHN Q4HRT PRN PRN Reason: Shortness of Breath or Wheeze Stop: 10/23/17 19:40 Lactic Acid (Lac-Hydrin Cream) 1 appl TP DAILY [facility] Stop: 10/24/17 08:59 Last Admin: 09/19/17 08:26 Dose: Not Given Lorazepam (Ativan) 0.5 mg PO Q6HR PRN; Protocol PRN Reason: Agitation Stop: 10/23/17 19:40 Magnesium Hydroxide (Milk Of Magnesia) 30 ml PO HS PRN PRN Reason: Constipation Stop: 10/23/17 19:40 Megestrol Acetate (Megace) 400 mg PO BID [facility] Stop: 10/24/17 08:59 Last Admin: 09/19/17 08:26 Dose: Not Given Mirtazapine (Remeron) 15 mg PO HS [facility]; Protocol Stop: 10/30/17 20:59 Last Admin: 09/18/17 21:26 Dose: Not Given Miscellaneous (Vte Chemical Prophylaxis Screen/ Admission) 1 ea MC PRN PRN PRN Reason: PROTOCOL Stop: 10/24/17 09:26 Miscellaneous (Probiotic Screen) 1 ea MC PRN PRN PRN Reason: PROTOCOL Stop: 10/29/17 08:59 Miscellaneous (Ppn Per Pharmacy) 1 ea MC PRN PRN PRN Reason: PPN PER RX Stop: 11/11/17 14:29 Olanzapine (Zyprexa) 5 mg PO HS [facility]; Protocol Stop: 10/23/17 20:59 Last Admin: 09/18/17 21:26 Dose: Not Given Sodium Phosphate (Fleet Enema) 135 ml RC DAILY PRN PRN Reason: Constipation Stop: 10/23/17 19:40 Zolpidem Tartrate (Ambien) 5 mg PO HS PRN PRN Reason: Insomnia Stop: 10/23/17 19:40 General: demented, disheveled, thin, cachectic HEENT: NC/AT, PERRLA Neck: Supple, No JVD, No LAD Lungs: congested, chest deformity present Cardiovascular: RRR, Normal S1, Normal S2, with murmur Abdomen: soft, non-tender, thin, positive bowel sound Extremities: excoriation, contracture, deformity Neurological: disorganized, muscle weakness, unable to follow command - Procedures Procedures: Procedures Procedure Code Date RECREATIONAL THERAPY 93.81 11/09/10 Internal Medicine Assmt/Plan - Assessment Assessment: Failure to thrive poor p.o. intake severe protein-caloric malnutrition diabetes congestive heart failure acute on chronic renal insufficiency schizoaffective disorder hypertension hypokalemia dementia legally blind leukocytosis bedbound. noncompliant - Plan Plan: still awaiting for conservator for peg placement, apparently patients conservator remains on vacation. DIRECTOR SPEECH AND HEARING TO FIND OUT IF PATIENTS CONSERVATOR HAS COVERAGE. blood culture now transfer patient to ICU continue with PPn for nutritional support ivf for hydration monitor electrolytes continue current plan of care Nutritional Asmnt/Malnutr-PDOC - Dietary Evaluation Malnutrition Findings (Please click <Entered> for more info): Nutritional Asmnt/Malnutrition Start: 08/25/17 17: 28 Text: Status: Complete Freq: Protocol: Document 08/25/17 17:28 LCHENG (Rec: 08/25/17 17:32 [email or web address]) Nutritional Asmnt/Malnutrition Patient General Information Nutritional Screening High Risk Consult Diagnosis dehydration, FTT Pertinent Medical Hx/Surgical Hx DM, CHF, kidney failure, schizophrenia, HTN, dementia, legally blind, noncompliance Subjective Information Consult received for poor oral intake. Pt seen resting in bed at time of visit. Per nurse note, pt refused breakfast and lunch today. Pt on calorie count noted. Current Diet Order/ Nutrition Support pureed, nectar thin liquid Pertinent Medications D5-0.45ns, colace, novolog, megace Pertinent Labs 7/2 K 3.0, glucose 106 Nutritional Hx/Data Height 5 ft 6 in Height (Calculated Centimeters) 167.6 Current Weight (lbs) 111 lb Weight (Calculated Kilograms) 50.3 Weight (Calculated Grams) 34826.8 [place] Body Weight 130 Body Mass Index (BMI) 17.9 Weight Status Underweight GI Symptoms GI Symptoms None Last BM none Skin Integrity/Comment: redness Estimated Nutritional Goals BEE in Kcals: Using Current wt Calories/Kcals/Kg 30-35 Kcals Calculated 9472-4371 Protein: Using Current wt Protein g/k.2 Protein Calculated 60 Fluid: ml 1500-1750ml (1ml/kcal) Nutritional Problem 1. Problem Problem inadequate food intake Etiology pt refusing to eat Signs/Symptoms: PO intake <25% since admission Malnutrition Alert Muscle Mass (Non-Severe) Mild Depletion Is there a minimum of two criteria No selected? Query Text:Check all the applicable criteria. A minimum of two criteria are recommended for diagnosis of either severe or non-severe malnutrition. Malnutrition Related to Morbid Obesity Malnutrition related to morbid obesity No Intervention/Recommendation Comments 1. Continue with current diet as ordered. Assist pt with meals and encourage oral intake. 2. Monitor PO intake, wt, labs and skin integrity 3. F/U as high risk in 2-3 days, 08/27-08/28 Expected Outcomes/Goals Expected Outcomes/Goals 1. PO intake to meet at least 75% of nutritional needs. 2. Wt stability, skin to remain intact, labs to approach WNL.
[2017-09-19] MEDS: TPN 8.5%-70% CUSTOM IV SCH (15:43)
[2017-09-20] MEDS: INSULIN ASPART SLIDING SCALE 100 UNITS/ML UNIT SUBQ SCH ×4 (00:50→17:44)
[2017-09-20 04:54] LABS: % BASOPHILS 0.5 % (0.0-2.0); % EOSINOPHILS 0.9 % (0.0-5.0); % LYMPHOCYTES 22.8 % (20.0-50.0); % MONOCYTES 8.3 % (2.0-10.0); % NEUTROPHILS 67.5 % (40.0-80.0); EOSINOPHILE ABSOLUTE 0.1 Th/cmm (0.1-0.4); HEMATOCRIT 25.3 % (41.0-60); HEMOGLOBIN 8.6 gm/dL (12-16); LYMPHOCYTE ABSOLUTE 1.5 Th/cmm (1.5-3.0); MEAN CELL VOLUME 90.3 fl (81-100); MEAN CORPUSCULAR HEMOGLOBIN 30.7 pg (27.0-31.0); MEAN PLATELET VOLUME 9.4 fl; MONOCYTE ABSOLUTE 0.5 Th/cmm (0.3-1.0); NEUTROPHILE ABSOLUTE 4.3 Th/cmm (1.8-8.0); PLATELET COUNT 300 Th/cmm (150-400); RED CELL DISTRIBUTION WIDTH 15.5 % (11.5-20.0); WHITE BLOOD COUNT 6.4 Th/cmm (4.8-10.8)
[2017-09-20 05:12] LABS: ANION GAP 10.6 (7.0-16.0); BUN - UREA NITROGEN 32 mg/dL (7-25); CARBON DIOXIDE 24.7 mEq/L (21.0-31.0); CHLORIDE 106 mEq/L (98-107); CREATININE - SERUM 0.8 mg/dL (0.6-1.2); GFR AFRICAN-AMERICAN > 60.0 ml/min (>90); GFR NON AFRICAN-AMERICAN > 60.0 ml/min; GLUCOSE 119 mg/dL (70-105); MAGNESIUM 1.9 mg/dL (1.9-2.7); PHOSPHOROUS 3.4 mg/dL (2.5-5.0); POTASSIUM SERUM 3.3 mEq/L (3.5-5.1); SODIUM SERUM 138 mEq/L (136-145)
[2017-09-20] MEDS ORDERED: KCL 20mEq/100mL Premix 20 MEQ/100 ML PIGGYBACK IV SCH (08:10)
--- NOTE | 2017-09-20 08:15 | GI Progress Note ---
Subjective - Review of Systems Service Date: 09/20/17 Subjective: EVENTS NOTED. BROUGHT TO ICU FOR ALOC. ON TPN. NPO. Objective - Results Result Diagrams: 09/20/17 04:35 09/20/17 04:35 Recent Labs: Laboratory Last Values WBC 6.4 Th/cmm (4.8-10.8) 09/20/17 04:35 RBC 2.80 Mil/cmm (3.80-5.20) L 09/20/17 04:35 Hgb 8.6 gm/dL (12-16) L 09/20/17 04:35 Hct 25.3 % (41.0-60) L 09/20/17 04:35 MCV 90.3 fl (81-100) 09/20/17 04:35 MCH 30.7 pg (27.0-31.0) 09/20/17 04:35 MCHC Differential 34.0 pg (28.0-36.0) 09/20/17 04:35 RDW 15.5 % (11.5-20.0) 09/20/17 04:35 Plt Count 300 Th/cmm (150-400) 09/20/17 04:35 MPV 9.4 fl 09/20/17 04:35 Neutrophils % 67.5 % (40.0-80.0) 09/20/17 04:35 Lymphocytes % 22.8 % (20.0-50.0) 09/20/17 04:35 Monocytes % 8.3 % (2.0-10.0) 09/20/17 04:35 Eosinophils % 0.9 % (0.0-5.0) 09/20/17 04:35 Basophils % 0.5 % (0.0-2.0) 09/20/17 04:35 Sodium 138 mEq/L (136-145) 09/20/17 04:35 Potassium 3.3 mEq/L (3.5-5.1) L 09/20/17 04:35 Chloride 106 mEq/L (98-107) 09/20/17 04:35 Carbon Dioxide 24.7 mEq/L (21.0-31.0) 09/20/17 04:35 Anion Gap 10.6 (7.0-16.0) 09/20/17 04:35 BUN 32 mg/dL (7-25) H 09/20/17 04:35 Creatinine 0.8 mg/dL (0.6-1.2) 09/20/17 04:35 Est GFR ( Amer) > 60.0 ml/min (>90) 09/20/17 04:35 Est GFR (Non-Af Amer) > 60.0 ml/min 09/20/17 04:35 BUN/Creatinine Ratio 40.0 09/20/17 04:35 Glucose 119 mg/dL (70-105) H 09/20/17 04:35 POC Glucose 130 MG/DL (70 - 105) H 09/19/17 18:05 Calcium 9.0 mg/dL (8.6-10.3) 09/20/17 04:35 Phosphorus 3.4 mg/dL (2.5-5.0) 09/20/17 04:35 Magnesium 1.9 mg/dL (1.9-2.7) 09/20/17 04:35 Total Bilirubin 0.4 mg/dL (0.3-1.0) 09/19/17 05:00 Direct Bilirubin 0.14 mg/dL (0.0-0.2) 09/08/17 05:35 AST 16 U/L (13-39) 09/19/17 05:00 ALT 11 U/L (7-52) 09/19/17 05:00 Alkaline Phosphatase 53 U/L (34-104) 09/19/17 05:00 Ammonia 43 umol/L (16-53) 09/01/17 05:40 B-Natriuretic Peptide 86.7 pg/mL (5.0-100.0) 08/31/17 05:00 Total Protein 5.5 gm/dL (6.0-8.3) L 09/19/17 05:00 Albumin 2.8 gm/dL (3.7-5.3) L 09/19/17 05:00 Globulin 2.7 gm/dL 09/19/17 05:00 Albumin/Globulin Ratio 1.0 (1.0-1.8) 09/19/17 05:00 Prealbumin 14 mg/dL (10-36) 09/16/17 05:45 Triglycerides 100 mg/dL (<150) 09/16/17 05:45 Cholesterol 190 mg/dL (<200) 09/16/17 05:45 Vitamin B12 790 pg/mL (232-1245) 09/01/17 05:40 Folic Acid 4.8 ng/mL (>3.0) 09/01/17 05:40 TSH 1.63 uIU/ml (0.34-5.60) 09/01/17 05:40 Urine Source [place] 08/29/17 13:45 Urine Color YELLOW 08/29/17 13:45 Urine Clarity SLIGHTLY HAZY (CLEAR) 08/29/17 13:45 Urine pH 7.5 (4.6 - 8.0) 08/29/17 13:45 Ur Specific [place] 1.010 (1.005-1.030) 08/29/17 13:45 Urine Protein NEGATIVE mg/dL (NEGATIVE) 08/29/17 13:45 Urine Glucose (UA) NEGATIVE mg/dL (NEGATIVE) 08/29/17 13:45 Urine Ketones NEGATIVE mg/dL (NEGATIVE) 08/29/17 13:45 Urine Blood TRACE (NEGATIVE) 08/29/17 13:45 Urine Nitrate NEGATIVE (NEGATIVE) 08/29/17 13:45 Urine Bilirubin NEGATIVE (NEGATIVE) 08/29/17 13:45 Urine Urobilinogen 0.2 E.U./dL (0.2 - 1.0) 08/29/17 13:45 Ur Leukocyte Esterase NEGATIVE (NEGATIVE) 08/29/17 13:45 Urine RBC 0-2 /hpf (0-5) 08/29/17 13:45 Urine WBC 0-2 /hpf (0-5) 08/29/17 13:45 Ur Epithelial Cells OCCASIONAL /lpf (FEW) 08/29/17 13:45 Urine Bacteria FEW /hpf (NONE SEEN) 08/29/17 13:45 Vancomycin Trough < 2.0 ug/mL (5-10) L 09/17/17 21:34 - Physical Exam Vitals and I&O: Vital Signs Temp 98.3 F 09/20/17 05:00 Pulse 88 09/20/17 07:00 Resp 17 09/20/17 07:00 BP 124/67 09/20/17 07:00 Pulse Ox 99 09/20/17 07:00 Intake & Output 09/19/17 09/20/17 09/20/17 18:59 06:59 18:59 Intake Total 1680.000 0 Output Total 250 950 Balance 1430.000 -950 Weight (lbs) 42.638 kg 34.473 kg Intake: Intake, IV Amount 1680.000 Multivitamin Inj 10 ml In 1680.000 Dextrose 70% 970 ml In Amino Acids 8.5% 500 ml In Intralipids 20% 200 ml @ 70 mls/hr IV .Q24H [facility] Rx#:[id number] Oral 0 Output: Urine 250 950 Other: # Bowel Movements 0 Weight Source Bedscale Bedscale Active Medications: Current Medications Acetaminophen (Tylenol) 650 mg GT Q4HR PRN PRN Reason: Pain or Fever >101 Stop: 10/23/17 19:40 Albuterol Sulfate (Albuterol 2.5mg/3ml Neb Ud) 2.5 mg HHN Q4HRT PRN PRN Reason: Shortness of Breath Stop: 10/23/17 19:40 Artificial Tears (Artificial Tears Ophth Soln) 1 drop EACH EYE Q2H PRN PRN Reason: Dry Eye Stop: 11/10/17 10:46 Bisacodyl (Dulcolax 10 Mg Supp) 10 mg RC DAILY PRN PRN Reason: Constipation Stop: 10/23/17 19:40 Dextrose (D50w) 50 ml IVP PRN PRN; Protocol PRN Reason: hypoglycemia protocol Stop: 11/04/17 12:57 Docusate Sodium (Colace) 100 mg GT DAILY PRN PRN Reason: CONSTIPATION Stop: 10/24/17 08:59 Last Admin: 08/27/17 17:38 Dose: 100 mg Heparin Sodium (Porcine) (Heparin) 5,000 units SUBQ Q12HR [facility] Stop: 10/24/17 20:59 Last Admin: 09/19/17 21:30 Dose: 5,000 units Multivitamins/Minerals 10 ml/Dextrose/ Amino Acids/Electrolytes/ Fat Emulsion Intravenous 1,920 mls @ 80 mls/hr IV .Q24H [facility] Stop: 10/17/17 15:59 Last Admin: 09/19/17 15:43 Dose: 80 mls/hr Potassium Chloride (Potassium Chloride) 20 meq in 100 mls @ 50 mls/hr IV 0810 [facility] Stop: 09/20/17 11:00 Insulin Aspart (Novolog Insulin Sliding Scale) 0 units SUBQ Q6H [facility]; Protocol Stop: 11/18/17 17:59 Last Admin: 09/20/17 06:26 Dose: Not Given Ipratropium [place] (Atrovent Neb 0.5mg/2.5ml) 0.5 mg HHN Q4HRT PRN PRN Reason: Shortness of Breath or Wheeze Stop: 10/23/17 19:40 Lactic Acid (Lac-Hydrin Cream) 1 appl TP DAILY [facility] Stop: 10/24/17 08:59 Last Admin: 09/19/17 08:26 Dose: Not Given Lorazepam (Ativan) 0.5 mg PO Q6HR PRN; Protocol PRN Reason: Agitation Stop: 10/23/17 19:40 Lorazepam (Ativan) 1 mg IV Q4H PRN; Protocol PRN Reason: Agitation Stop: 11/19/17 07:48 Magnesium Hydroxide (Milk Of Magnesia) 30 ml PO HS PRN PRN Reason: Constipation Stop: 10/23/17 19:40 Megestrol Acetate (Megace) 400 mg PO BID [facility] Stop: 10/24/17 08:59 Last Admin: 09/19/17 16:57 Dose: Not Given Mirtazapine (Remeron) 15 mg PO HS [facility]; Protocol Stop: 10/30/17 20:59 Last Admin: 09/19/17 21:40 Dose: Not Given Miscellaneous (Vte Chemical Prophylaxis Screen/ Admission) 1 ea MC PRN PRN PRN Reason: PROTOCOL Stop: 10/24/17 09:26 Miscellaneous (Probiotic Screen) 1 ea MC PRN PRN PRN Reason: PROTOCOL Stop: 10/29/17 08:59 Miscellaneous (Ppn Per Pharmacy) 1 ea MC PRN PRN PRN Reason: PPN PER RX Stop: 11/11/17 14:29 Olanzapine (Zyprexa) 5 mg PO HS [facility]; Protocol Stop: 10/23/17 20:59 Last Admin: 09/19/17 21:40 Dose: Not Given Sodium Phosphate (Fleet Enema) 135 ml RC DAILY PRN PRN Reason: Constipation Stop: 10/23/17 19:40 Zolpidem Tartrate (Ambien) 5 mg PO HS PRN PRN Reason: Insomnia Stop: 10/23/17 19:40 General: No acute distress Cardiovascular: Regular rate Lungs: Clear to auscultation Abdomen: Soft, no Tender - Procedures Procedures: Procedures Procedure Code Date RECREATIONAL THERAPY 93.81 11/09/10 Assessment/Plan - Assessment Assessment: 67 YO FEMALE WITH ANOREXIA AND DYSPHAGIA PENDING PEG PLACEMENT. ON GENERAL MANAGER FOOD TPN. LIKELY HAS DEMENTIA. 1.CONT ENCOURAGE PO DIET [place]. 2.PENDING PEG PLACEMENT ONCE APPROVED BY CONSERVATOR. 3. CONT TPN FOR NOW. WILL SEE INTERMITTENTLY.
[2017-09-20] MEDS: Ammonium Lactate Cream 140 gm Tube TP SCH (08:40)
--- NOTE | 2017-09-20 12:12 | Internal Medicine Prog Note ---
Internal Medicine Subjective - Subjective Service Date: 09/20/17 (bp much better, still with weakness and refusing to eat ) Patient seen and examined:: with staff Patient is:: in bed, other (lethargic) Patient Complaints of:: congestion Per staff patient has:: poor appetite, poor oral intake Internal Medicine Objective - Results Result Diagrams: 09/20/17 04:35 09/20/17 04:35 Recent Labs: Laboratory Last Values WBC 6.4 Th/cmm (4.8-10.8) 09/20/17 04:35 RBC 2.80 Mil/cmm (3.80-5.20) L 09/20/17 04:35 Hgb 8.6 gm/dL (12-16) L 09/20/17 04:35 Hct 25.3 % (41.0-60) L 09/20/17 04:35 MCV 90.3 fl (81-100) 09/20/17 04:35 MCH 30.7 pg (27.0-31.0) 09/20/17 04:35 MCHC Differential 34.0 pg (28.0-36.0) 09/20/17 04:35 RDW 15.5 % (11.5-20.0) 09/20/17 04:35 Plt Count 300 Th/cmm (150-400) 09/20/17 04:35 MPV 9.4 fl 09/20/17 04:35 Neutrophils % 67.5 % (40.0-80.0) 09/20/17 04:35 Lymphocytes % 22.8 % (20.0-50.0) 09/20/17 04:35 Monocytes % 8.3 % (2.0-10.0) 09/20/17 04:35 Eosinophils % 0.9 % (0.0-5.0) 09/20/17 04:35 Basophils % 0.5 % (0.0-2.0) 09/20/17 04:35 Sodium 138 mEq/L (136-145) 09/20/17 04:35 Potassium 3.3 mEq/L (3.5-5.1) L 09/20/17 04:35 Chloride 106 mEq/L (98-107) 09/20/17 04:35 Carbon Dioxide 24.7 mEq/L (21.0-31.0) 09/20/17 04:35 Anion Gap 10.6 (7.0-16.0) 09/20/17 04:35 BUN 32 mg/dL (7-25) H 09/20/17 04:35 Creatinine 0.8 mg/dL (0.6-1.2) 09/20/17 04:35 Est GFR ( Amer) > 60.0 ml/min (>90) 09/20/17 04:35 Est GFR (Non-Af Amer) > 60.0 ml/min 09/20/17 04:35 BUN/Creatinine Ratio 40.0 09/20/17 04:35 Glucose 119 mg/dL (70-105) H 09/20/17 04:35 POC Glucose 78 MG/DL (70 - 105) 09/20/17 11:57 Calcium 9.0 mg/dL (8.6-10.3) 09/20/17 04:35 Phosphorus 3.4 mg/dL (2.5-5.0) 09/20/17 04:35 Magnesium 1.9 mg/dL (1.9-2.7) 09/20/17 04:35 Total Bilirubin 0.4 mg/dL (0.3-1.0) 09/19/17 05:00 Direct Bilirubin 0.14 mg/dL (0.0-0.2) 09/08/17 05:35 AST 16 U/L (13-39) 09/19/17 05:00 ALT 11 U/L (7-52) 09/19/17 05:00 Alkaline Phosphatase 53 U/L (34-104) 09/19/17 05:00 Ammonia 43 umol/L (16-53) 09/01/17 05:40 B-Natriuretic Peptide 86.7 pg/mL (5.0-100.0) 08/31/17 05:00 Total Protein 5.5 gm/dL (6.0-8.3) L 09/19/17 05:00 Albumin 2.8 gm/dL (3.7-5.3) L 09/19/17 05:00 Globulin 2.7 gm/dL 09/19/17 05:00 Albumin/Globulin Ratio 1.0 (1.0-1.8) 09/19/17 05:00 Prealbumin 14 mg/dL (10-36) 09/16/17 05:45 Triglycerides 100 mg/dL (<150) 09/16/17 05:45 Cholesterol 190 mg/dL (<200) 09/16/17 05:45 Vitamin B12 790 pg/mL (232-1245) 09/01/17 05:40 Folic Acid 4.8 ng/mL (>3.0) 09/01/17 05:40 TSH 1.63 uIU/ml (0.34-5.60) 09/01/17 05:40 Urine Source [place] 08/29/17 13:45 Urine Color YELLOW 08/29/17 13:45 Urine Clarity SLIGHTLY HAZY (CLEAR) 08/29/17 13:45 Urine pH 7.5 (4.6 - 8.0) 08/29/17 13:45 Ur Specific [place] 1.010 (1.005-1.030) 08/29/17 13:45 Urine Protein NEGATIVE mg/dL (NEGATIVE) 08/29/17 13:45 Urine Glucose (UA) NEGATIVE mg/dL (NEGATIVE) 08/29/17 13:45 Urine Ketones NEGATIVE mg/dL (NEGATIVE) 08/29/17 13:45 Urine Blood TRACE (NEGATIVE) 08/29/17 13:45 Urine Nitrate NEGATIVE (NEGATIVE) 08/29/17 13:45 Urine Bilirubin NEGATIVE (NEGATIVE) 08/29/17 13:45 Urine Urobilinogen 0.2 E.U./dL (0.2 - 1.0) 08/29/17 13:45 Ur Leukocyte Esterase NEGATIVE (NEGATIVE) 08/29/17 13:45 Urine RBC 0-2 /hpf (0-5) 08/29/17 13:45 Urine WBC 0-2 /hpf (0-5) 08/29/17 13:45 Ur Epithelial Cells OCCASIONAL /lpf (FEW) 08/29/17 13:45 Urine Bacteria FEW /hpf (NONE SEEN) 08/29/17 13:45 Vancomycin Trough < 2.0 ug/mL (5-10) L 09/17/17 21:34 - Physical Exam Vitals and I&O: Vital Signs Temp 97.3 F 09/20/17 10:00 Pulse 72 09/20/17 10:00 Resp 15 09/20/17 10:00 BP 112/61 09/20/17 10:00 Pulse Ox 99 09/20/17 10:00 Intake & Output 09/19/17 09/20/17 09/20/17 18:59 06:59 18:59 Intake Total 1680.000 0 Output Total 250 950 Balance 1430.000 -950 Weight (lbs) 94 lb 76 lb Intake: Intake, IV Amount 1680.000 Multivitamin Inj 10 ml In 1680.000 Dextrose 70% 970 ml In Amino Acids 8.5% 500 ml In Intralipids 20% 200 ml @ 70 mls/hr IV .Q24H [facility] Rx#:[id number] Oral 0 Output: Urine 250 950 Other: # Bowel Movements 0 Weight Source Bedscale Bedscale Active Medications: Current Medications Acetaminophen (Tylenol) 650 mg GT Q4HR PRN PRN Reason: Pain or Fever >101 Stop: 10/23/17 19:40 Albuterol Sulfate (Albuterol 2.5mg/3ml Neb Ud) 2.5 mg HHN Q4HRT PRN PRN Reason: Shortness of Breath Stop: 10/23/17 19:40 Artificial Tears (Artificial Tears Ophth Soln) 1 drop EACH EYE Q2H PRN PRN Reason: Dry Eye Stop: 11/10/17 10:46 Bisacodyl (Dulcolax 10 Mg Supp) 10 mg RC DAILY PRN PRN Reason: Constipation Stop: 10/23/17 19:40 Dextrose (D50w) 50 ml IVP PRN PRN; Protocol PRN Reason: hypoglycemia protocol Stop: 11/04/17 12:57 Docusate Sodium (Colace) 100 mg GT DAILY PRN PRN Reason: CONSTIPATION Stop: 10/24/17 08:59 Last Admin: 08/27/17 17:38 Dose: 100 mg Heparin Sodium (Porcine) (Heparin) 5,000 units SUBQ Q12HR [facility] Stop: 10/24/17 20:59 Last Admin: 09/20/17 08:40 Dose: 5,000 units Multivitamins/Minerals 10 ml/Dextrose/ Amino Acids/Electrolytes/ Fat Emulsion Intravenous 1,920 mls @ 80 mls/hr IV .Q24H [facility] Stop: 10/17/17 15:59 Last Admin: 09/19/17 15:43 Dose: 80 mls/hr Insulin Aspart (Novolog Insulin Sliding Scale) 0 units SUBQ Q6H [facility]; Protocol Stop: 11/18/17 17:59 Last Admin: 09/20/17 11:59 Dose: Not Given Ipratropium [place] (Atrovent Neb 0.5mg/2.5ml) 0.5 mg HHN Q4HRT PRN PRN Reason: Shortness of Breath or Wheeze Stop: 10/23/17 19:40 Lactic Acid (Lac-Hydrin Cream) 1 appl TP DAILY [facility] Stop: 10/24/17 08:59 Last Admin: 09/20/17 08:40 Dose: 1 appl Lorazepam (Ativan) 0.5 mg PO Q6HR PRN; Protocol PRN Reason: Agitation Stop: 10/23/17 19:40 Lorazepam (Ativan) 1 mg IV Q4H PRN; Protocol PRN Reason: Agitation Stop: 11/19/17 07:48 Last Admin: 09/20/17 08:05 Dose: 1 mg Magnesium Hydroxide (Milk Of Magnesia) 30 ml PO HS PRN PRN Reason: Constipation Stop: 10/23/17 19:40 Megestrol Acetate (Megace) 400 mg PO BID [facility] Stop: 10/24/17 08:59 Last Admin: 09/20/17 08:40 Dose: Not Given Mirtazapine (Remeron) 15 mg PO HS [facility]; Protocol Stop: 10/30/17 20:59 Last Admin: 09/19/17 21:40 Dose: Not Given Miscellaneous (Vte Chemical Prophylaxis Screen/ Admission) 1 ea MC PRN PRN PRN Reason: PROTOCOL Stop: 10/24/17 09:26 Miscellaneous (Probiotic Screen) 1 ea MC PRN PRN PRN Reason: PROTOCOL Stop: 10/29/17 08:59 Miscellaneous (Ppn Per Pharmacy) 1 ea MC PRN PRN PRN Reason: PPN PER RX Stop: 11/11/17 14:29 Olanzapine (Zyprexa) 5 mg PO HS [facility]; Protocol Stop: 10/23/17 20:59 Last Admin: 09/19/17 21:40 Dose: Not Given Sodium Phosphate (Fleet Enema) 135 ml RC DAILY PRN PRN Reason: Constipation Stop: 10/23/17 19:40 Zolpidem Tartrate (Ambien) 5 mg PO HS PRN PRN Reason: Insomnia Stop: 10/23/17 19:40 General: demented, disheveled, thin, cachectic HEENT: NC/AT, PERRLA Neck: Supple, No JVD, No LAD Lungs: congested, chest deformity present Cardiovascular: RRR, Normal S1, Normal S2, with murmur Abdomen: soft, non-tender, thin, positive bowel sound Extremities: excoriation, contracture, deformity Neurological: disorganized, muscle weakness, unable to follow command - Procedures Procedures: Procedures Procedure Code Date RECREATIONAL THERAPY 93.81 11/09/10 Internal Medicine Assmt/Plan - Assessment Assessment: Failure to thrive poor p.o. intake severe protein-caloric malnutrition diabetes congestive heart failure acute on chronic renal insufficiency schizoaffective disorder hypertension hypokalemia dementia legally blind leukocytosis bedbound. noncompliant - Plan Plan: continue with PPn for nutritional support ivf for hydration monitor electrolytes need PEG PLACEMENT, awaiting for conservator. Conservator delaying treatment. continue current plan of care Nutritional Asmnt/Malnutr-PDOC - Dietary Evaluation Malnutrition Findings (Please click <Entered> for more info): Nutritional Asmnt/Malnutrition Start: 08/25/17 17: 28 Text: Status: Complete Freq: Protocol: Document 08/25/17 17:28 LCHENG (Rec: 08/25/17 17:32 [email or web address] [id number]) Nutritional Asmnt/Malnutrition Patient General Information Nutritional Screening High Risk Consult Diagnosis dehydration, FTT Pertinent Medical Hx/Surgical Hx DM, CHF, kidney failure, schizophrenia, HTN, dementia, legally blind, noncompliance Subjective Information Consult received for poor oral intake. Pt seen resting in bed at time of visit. Per nurse note, pt refused breakfast and lunch today. Pt on calorie count noted. Current Diet Order/ Nutrition Support pureed, nectar thin liquid Pertinent Medications D5-0.45ns, colace, novolog, megace Pertinent Labs 7/2 K 3.0, glucose 106 Nutritional Hx/Data Height 5 ft 6 in Height (Calculated Centimeters) 167.6 Current Weight (lbs) 111 lb Weight (Calculated Kilograms) 50.3 Weight (Calculated Grams) 63926.8 [place] Body Weight 130 Body Mass Index (BMI) 17.9 Weight Status Underweight GI Symptoms GI Symptoms None Last BM none Skin Integrity/Comment: redness Estimated Nutritional Goals BEE in Kcals: Using Current wt Calories/Kcals/Kg 30-35 Kcals Calculated 7934-9447 Protein: Using Current wt Protein g/k.2 Protein Calculated 60 Fluid: ml 1500-1750ml (1ml/kcal) Nutritional Problem 1. Problem Problem inadequate food intake Etiology pt refusing to eat Signs/Symptoms: PO intake <25% since admission Malnutrition Alert Muscle Mass (Non-Severe) Mild Depletion Is there a minimum of two criteria No selected? Query Text:Check all the applicable criteria. A minimum of two criteria are recommended for diagnosis of either severe or non-severe malnutrition. Malnutrition Related to Morbid Obesity Malnutrition related to morbid obesity No Intervention/Recommendation Comments 1. Continue with current diet as ordered. Assist pt with meals and encourage oral intake. 2. Monitor PO intake, wt, labs and skin integrity 3. F/U as high risk in 2-3 days, 08/27-08/28 Expected Outcomes/Goals Expected Outcomes/Goals 1. PO intake to meet at least 75% of nutritional needs. 2. Wt stability, skin to remain intact, labs to approach WNL.
[2017-09-20] MEDS: TPN 8.5%-70% CUSTOM IV SCH (15:47)
[2017-09-21] MEDS: INSULIN ASPART SLIDING SCALE 100 UNITS/ML UNIT SUBQ SCH ×5 (00:25→23:54)
[2017-09-21 05:56] LABS: % BASOPHILS 0.5 % (0.0-2.0); % EOSINOPHILS 0.9 % (0.0-5.0); % LYMPHOCYTES 12.7 % (20.0-50.0); % MONOCYTES 5.8 % (2.0-10.0); % NEUTROPHILS 80.1 % (40.0-80.0); EOSINOPHILE ABSOLUTE 0.1 Th/cmm (0.1-0.4); HEMATOCRIT 28.1 % (41.0-60); HEMOGLOBIN 9.5 gm/dL (12-16); LYMPHOCYTE ABSOLUTE 1.2 Th/cmm (1.5-3.0); MEAN CELL VOLUME 90.3 fl (81-100); MEAN CORPUSCULAR HEMOGLOBIN 30.4 pg (27.0-31.0); MEAN CORPUSCULAR HGB CONC 33.6 pg (28.0-36.0); MEAN PLATELET VOLUME 9.4 fl; MONOCYTE ABSOLUTE 0.5 Th/cmm (0.3-1.0); NEUTROPHILE ABSOLUTE 7.3 Th/cmm (1.8-8.0); PLATELET COUNT 318 Th/cmm (150-400); RED BLOOD COUNT 3.11 Mil/cmm (3.80-5.20); RED CELL DISTRIBUTION WIDTH 16.4 % (11.5-20.0); WHITE BLOOD COUNT 9.1 Th/cmm (4.8-10.8)
[2017-09-21 06:18] LABS: ANION GAP 11.6 (7.0-16.0); BUN - UREA NITROGEN 38 mg/dL (7-25); CALCIUM SERUM 9.1 mg/dL (8.6-10.3); CARBON DIOXIDE 24.5 mEq/L (21.0-31.0); CHLORIDE 108 mEq/L (98-107); CREATININE - SERUM 0.8 mg/dL (0.6-1.2); GFR AFRICAN-AMERICAN > 60.0 ml/min (>90); GFR NON AFRICAN-AMERICAN > 60.0 ml/min; GLUCOSE 144 mg/dL (70-105); MAGNESIUM 2.1 mg/dL (1.9-2.7); PHOSPHOROUS 3.4 mg/dL (2.5-5.0); POTASSIUM SERUM 3.1 mEq/L (3.5-5.1); SODIUM SERUM 141 mEq/L (136-145)
[2017-09-21] MEDS ORDERED: D5-0.45NS 1,000 ML IV SCH (07:33)
[2017-09-21] MEDS ORDERED: Potassium Chloride 40 MEQ, Lidocaine 1% 20mL Vial 25 MG in Sodium Chloride 0.9% 250 ML IV ONE (07:39)
[2017-09-21] MEDS ORDERED: Albumin 25% 12.5gm/50mL 12.5 GM/50 ML BTL IV ONE (07:41)
[2017-09-21] MEDS ORDERED: KCL 20mEq/100mL Premix 40 MEQ/200 ML PIGGYBACK IV SCH (07:45)
--- NOTE | 2017-09-21 09:25 | GI Progress Note ---
Subjective - Review of Systems Service Date: 09/21/17 Subjective: EVENTS NOTED. BROUGHT TO ICU FOR ALOC. ON TPN. NPO. Objective - Results Result Diagrams: 09/21/17 05:35 09/21/17 05:35 Recent Labs: Laboratory Last Values WBC 9.1 Th/cmm (4.8-10.8) 09/21/17 05:35 RBC 3.11 Mil/cmm (3.80-5.20) L 09/21/17 05:35 Hgb 9.5 gm/dL (12-16) L 09/21/17 05:35 Hct 28.1 % (41.0-60) L 09/21/17 05:35 MCV 90.3 fl (81-100) 09/21/17 05:35 MCH 30.4 pg (27.0-31.0) 09/21/17 05:35 MCHC Differential 33.6 pg (28.0-36.0) 09/21/17 05:35 RDW 16.4 % (11.5-20.0) 09/21/17 05:35 Plt Count 318 Th/cmm (150-400) 09/21/17 05:35 MPV 9.4 fl 09/21/17 05:35 Neutrophils % 80.1 % (40.0-80.0) H 09/21/17 05:35 Lymphocytes % 12.7 % (20.0-50.0) L 09/21/17 05:35 Monocytes % 5.8 % (2.0-10.0) 09/21/17 05:35 Eosinophils % 0.9 % (0.0-5.0) 09/21/17 05:35 Basophils % 0.5 % (0.0-2.0) 09/21/17 05:35 Sodium 141 mEq/L (136-145) 09/21/17 05:35 Potassium 3.1 mEq/L (3.5-5.1) L 09/21/17 05:35 Chloride 108 mEq/L (98-107) H 09/21/17 05:35 Carbon Dioxide 24.5 mEq/L (21.0-31.0) 09/21/17 05:35 Anion Gap 11.6 (7.0-16.0) 09/21/17 05:35 BUN 38 mg/dL (7-25) H 09/21/17 05:35 Creatinine 0.8 mg/dL (0.6-1.2) 09/21/17 05:35 Est GFR ( Amer) > 60.0 ml/min (>90) 09/21/17 05:35 Est GFR (Non-Af Amer) > 60.0 ml/min 09/21/17 05:35 BUN/Creatinine Ratio 47.5 09/21/17 05:35 Glucose 144 mg/dL (70-105) H 09/21/17 05:35 POC Glucose 134 MG/DL (70 - 105) H 09/21/17 06:11 Calcium 9.1 mg/dL (8.6-10.3) 09/21/17 05:35 Phosphorus 3.4 mg/dL (2.5-5.0) 09/21/17 05:35 Magnesium 2.1 mg/dL (1.9-2.7) 09/21/17 05:35 Total Bilirubin 0.4 mg/dL (0.3-1.0) 09/19/17 05:00 Direct Bilirubin 0.14 mg/dL (0.0-0.2) 09/08/17 05:35 AST 16 U/L (13-39) 09/19/17 05:00 ALT 11 U/L (7-52) 09/19/17 05:00 Alkaline Phosphatase 53 U/L (34-104) 09/19/17 05:00 Ammonia 43 umol/L (16-53) 09/01/17 05:40 B-Natriuretic Peptide 86.7 pg/mL (5.0-100.0) 08/31/17 05:00 Total Protein 5.5 gm/dL (6.0-8.3) L 09/19/17 05:00 Albumin 2.8 gm/dL (3.7-5.3) L 09/19/17 05:00 Globulin 2.7 gm/dL 09/19/17 05:00 Albumin/Globulin Ratio 1.0 (1.0-1.8) 09/19/17 05:00 Prealbumin 14 mg/dL (10-36) 09/16/17 05:45 Triglycerides 100 mg/dL (<150) 09/16/17 05:45 Cholesterol 190 mg/dL (<200) 09/16/17 05:45 Vitamin B12 790 pg/mL (232-1245) 09/01/17 05:40 Folic Acid 4.8 ng/mL (>3.0) 09/01/17 05:40 TSH 1.63 uIU/ml (0.34-5.60) 09/01/17 05:40 Urine Source [place] 08/29/17 13:45 Urine Color YELLOW 08/29/17 13:45 Urine Clarity SLIGHTLY HAZY (CLEAR) 08/29/17 13:45 Urine pH 7.5 (4.6 - 8.0) 08/29/17 13:45 Ur Specific [place] 1.010 (1.005-1.030) 08/29/17 13:45 Urine Protein NEGATIVE mg/dL (NEGATIVE) 08/29/17 13:45 Urine Glucose (UA) NEGATIVE mg/dL (NEGATIVE) 08/29/17 13:45 Urine Ketones NEGATIVE mg/dL (NEGATIVE) 08/29/17 13:45 Urine Blood TRACE (NEGATIVE) 08/29/17 13:45 Urine Nitrate NEGATIVE (NEGATIVE) 08/29/17 13:45 Urine Bilirubin NEGATIVE (NEGATIVE) 08/29/17 13:45 Urine Urobilinogen 0.2 E.U./dL (0.2 - 1.0) 08/29/17 13:45 Ur Leukocyte Esterase NEGATIVE (NEGATIVE) 08/29/17 13:45 Urine RBC 0-2 /hpf (0-5) 08/29/17 13:45 Urine WBC 0-2 /hpf (0-5) 08/29/17 13:45 Ur Epithelial Cells OCCASIONAL /lpf (FEW) 08/29/17 13:45 Urine Bacteria FEW /hpf (NONE SEEN) 08/29/17 13:45 Vancomycin Trough < 2.0 ug/mL (5-10) L 09/17/17 21:34 - Physical Exam Vitals and I&O: Vital Signs Temp 97.2 F 09/21/17 06:00 Pulse 83 09/21/17 07:00 Resp 17 09/21/17 07:00 BP 94/52 09/21/17 07:00 Pulse Ox 99 09/21/17 07:00 Intake & Output 09/20/17 09/21/17 09/21/17 18:59 06:59 18:59 Intake Total 3070 476 Output Total 1999 Balance 1070 26 Weight (lbs) 43.261 kg 42.864 kg Intake: Intake, IV Amount 1920 Multivitamin Inj 10 ml In 1920 Dextrose 70% 1,210 ml In Amino Acids 8.5% 500 ml In Intralipids 20% 200 ml @ 80 mls/hr IV .Q24H [facility] Rx#:[id number] Oral 1150 476 Output: Urine 1999 Other: # Bowel Movements 2 2 Stool Characteristics Liquid Liquid Brown Brown Weight Source Bedscale Bedscale Active Medications: Current Medications Acetaminophen (Tylenol) 650 mg GT Q4HR PRN PRN Reason: Pain or Fever >101 Stop: 10/23/17 19:40 Albuterol Sulfate (Albuterol 2.5mg/3ml Neb Ud) 2.5 mg HHN Q4HRT PRN PRN Reason: Shortness of Breath Stop: 10/23/17 19:40 Artificial Tears (Artificial Tears Ophth Soln) 1 drop EACH EYE Q2H PRN PRN Reason: Dry Eye Stop: 11/10/17 10:46 Bisacodyl (Dulcolax 10 Mg Supp) 10 mg RC DAILY PRN PRN Reason: Constipation Stop: 10/23/17 19:40 Dextrose (D50w) 50 ml IVP PRN PRN; Protocol PRN Reason: hypoglycemia protocol Stop: 11/04/17 12:57 Docusate Sodium (Colace) 100 mg GT DAILY PRN PRN Reason: CONSTIPATION Stop: 10/24/17 08:59 Last Admin: 08/27/17 17:38 Dose: 100 mg Heparin Sodium (Porcine) (Heparin) 5,000 units SUBQ Q12HR FOZIA Stop: 10/24/17 20:59 Last Admin: 09/20/17 20:46 Dose: 5,000 units Multivitamins/Minerals 10 ml/Dextrose/ Amino Acids/Electrolytes/ Fat Emulsion Intravenous 1,920 mls @ 80 mls/hr IV .Q24H FOZIA Stop: 10/17/17 15:59 Last Admin: 09/20/17 15:47 Dose: 80 mls/hr Potassium Chloride (Potassium Chloride) 40 meq in 200 mls @ 50 mls/hr IV 0745 [facility] Stop: 09/21/17 13:00 Dextrose/Sodium Chloride (D5-0.45ns) 1,000 mls @ 60 mls/hr IV .[id number] FOZIA Stop: 11/20/17 07:32 Last Admin: 09/21/17 08:45 Dose: 60 mls/hr Insulin Aspart (Novolog Insulin Sliding Scale) 0 units SUBQ Q6H FOZIA; Protocol Stop: 11/18/17 17:59 Last Admin: 09/21/17 06:16 Dose: Not Given Ipratropium [place] (Atrovent Neb 0.5mg/2.5ml) 0.5 mg HHN Q4HRT PRN PRN Reason: Shortness of Breath or Wheeze Stop: 10/23/17 19:40 Lactic Acid (Lac-Hydrin Cream) 1 appl TP DAILY FOZIA Stop: 10/24/17 08:59 Last Admin: 09/20/17 08:40 Dose: 1 appl Lorazepam (Ativan) 1 mg IV Q4H PRN; Protocol PRN Reason: Agitation Stop: 11/19/17 07:48 Last Admin: 09/20/17 17:05 Dose: 1 mg Magnesium Hydroxide (Milk Of Magnesia) 30 ml PO HS PRN PRN Reason: Constipation Stop: 10/23/17 19:40 Megestrol Acetate (Megace) 400 mg PO BID FOZIA Stop: 10/24/17 08:59 Last Admin: 09/20/17 17:10 Dose: 400 mg Mirtazapine (Remeron) 15 mg PO HS FOZIA; Protocol Stop: 10/30/17 20:59 Last Admin: 09/20/17 20:46 Dose: 15 mg Miscellaneous (Vte Chemical Prophylaxis Screen/ Admission) 1 ea MC PRN PRN PRN Reason: PROTOCOL Stop: 10/24/17 09:26 Miscellaneous (Probiotic Screen) 1 ea MC PRN PRN PRN Reason: PROTOCOL Stop: 10/29/17 08:59 Miscellaneous (Ppn Per Pharmacy) 1 ea MC PRN PRN PRN Reason: PPN PER RX Stop: 11/11/17 14:29 Olanzapine (Zyprexa) 5 mg PO HS FOZIA; Protocol Stop: 10/23/17 20:59 Last Admin: 09/20/17 20:46 Dose: 5 mg Sodium Phosphate (Fleet Enema) 135 ml RC DAILY PRN PRN Reason: Constipation Stop: 10/23/17 19:40 General: No acute distress Cardiovascular: Regular rate Lungs: Clear to auscultation Abdomen: Soft, no Tender - Procedures Procedures: Procedures Procedure Code Date RECREATIONAL THERAPY 93.81 11/09/10 Assessment/Plan - Assessment Assessment: 67 YO FEMALE WITH ANOREXIA AND DYSPHAGIA PENDING PEG PLACEMENT. ON ACQUISITION ASSOCIATE TPN. LIKELY HAS DEMENTIA. 1.CONT ENCOURAGE PO DIET [place]. 2.PENDING PEG PLACEMENT ONCE APPROVED BY CONSERVATOR. 3. CONT TPN FOR NOW. WILL SEE INTERMITTENTLY.
--- NOTE | 2017-09-21 11:37 | Internal Medicine Prog Note ---
Internal Medicine Subjective - Subjective Service Date: 09/21/17 (much better today ) Patient seen and examined:: with staff Patient is:: awake, in bed, other Patient Complaints of:: congestion Per staff patient has:: poor appetite, poor oral intake Internal Medicine Objective - Results Result Diagrams: 09/21/17 05:35 09/21/17 05:35 Recent Labs: Laboratory Last Values WBC 9.1 Th/cmm (4.8-10.8) 09/21/17 05:35 RBC 3.11 Mil/cmm (3.80-5.20) L 09/21/17 05:35 Hgb 9.5 gm/dL (12-16) L 09/21/17 05:35 Hct 28.1 % (41.0-60) L 09/21/17 05:35 MCV 90.3 fl (81-100) 09/21/17 05:35 MCH 30.4 pg (27.0-31.0) 09/21/17 05:35 MCHC Differential 33.6 pg (28.0-36.0) 09/21/17 05:35 RDW 16.4 % (11.5-20.0) 09/21/17 05:35 Plt Count 318 Th/cmm (150-400) 09/21/17 05:35 MPV 9.4 fl 09/21/17 05:35 Neutrophils % 80.1 % (40.0-80.0) H 09/21/17 05:35 Lymphocytes % 12.7 % (20.0-50.0) L 09/21/17 05:35 Monocytes % 5.8 % (2.0-10.0) 09/21/17 05:35 Eosinophils % 0.9 % (0.0-5.0) 09/21/17 05:35 Basophils % 0.5 % (0.0-2.0) 09/21/17 05:35 Sodium 141 mEq/L (136-145) 09/21/17 05:35 Potassium 3.1 mEq/L (3.5-5.1) L 09/21/17 05:35 Chloride 108 mEq/L (98-107) H 09/21/17 05:35 Carbon Dioxide 24.5 mEq/L (21.0-31.0) 09/21/17 05:35 Anion Gap 11.6 (7.0-16.0) 09/21/17 05:35 BUN 38 mg/dL (7-25) H 09/21/17 05:35 Creatinine 0.8 mg/dL (0.6-1.2) 09/21/17 05:35 Est GFR ( Amer) > 60.0 ml/min (>90) 09/21/17 05:35 Est GFR (Non-Af Amer) > 60.0 ml/min 09/21/17 05:35 BUN/Creatinine Ratio 47.5 09/21/17 05:35 Glucose 144 mg/dL (70-105) H 09/21/17 05:35 POC Glucose 134 MG/DL (70 - 105) H 09/21/17 06:11 Calcium 9.1 mg/dL (8.6-10.3) 09/21/17 05:35 Phosphorus 3.4 mg/dL (2.5-5.0) 09/21/17 05:35 Magnesium 2.1 mg/dL (1.9-2.7) 09/21/17 05:35 Total Bilirubin 0.4 mg/dL (0.3-1.0) 09/19/17 05:00 Direct Bilirubin 0.14 mg/dL (0.0-0.2) 09/08/17 05:35 AST 16 U/L (13-39) 09/19/17 05:00 ALT 11 U/L (7-52) 09/19/17 05:00 Alkaline Phosphatase 53 U/L (34-104) 09/19/17 05:00 Ammonia 43 umol/L (16-53) 09/01/17 05:40 B-Natriuretic Peptide 86.7 pg/mL (5.0-100.0) 08/31/17 05:00 Total Protein 5.5 gm/dL (6.0-8.3) L 09/19/17 05:00 Albumin 2.8 gm/dL (3.7-5.3) L 09/19/17 05:00 Globulin 2.7 gm/dL 09/19/17 05:00 Albumin/Globulin Ratio 1.0 (1.0-1.8) 09/19/17 05:00 Prealbumin 14 mg/dL (10-36) 09/16/17 05:45 Triglycerides 100 mg/dL (<150) 09/16/17 05:45 Cholesterol 190 mg/dL (<200) 09/16/17 05:45 Vitamin B12 790 pg/mL (232-1245) 09/01/17 05:40 Folic Acid 4.8 ng/mL (>3.0) 09/01/17 05:40 TSH 1.63 uIU/ml (0.34-5.60) 09/01/17 05:40 Urine Source [place] 08/29/17 13:45 Urine Color YELLOW 08/29/17 13:45 Urine Clarity SLIGHTLY HAZY (CLEAR) 08/29/17 13:45 Urine pH 7.5 (4.6 - 8.0) 08/29/17 13:45 Ur Specific [place] 1.010 (1.005-1.030) 08/29/17 13:45 Urine Protein NEGATIVE mg/dL (NEGATIVE) 08/29/17 13:45 Urine Glucose (UA) NEGATIVE mg/dL (NEGATIVE) 08/29/17 13:45 Urine Ketones NEGATIVE mg/dL (NEGATIVE) 08/29/17 13:45 Urine Blood TRACE (NEGATIVE) 08/29/17 13:45 Urine Nitrate NEGATIVE (NEGATIVE) 08/29/17 13:45 Urine Bilirubin NEGATIVE (NEGATIVE) 08/29/17 13:45 Urine Urobilinogen 0.2 E.U./dL (0.2 - 1.0) 08/29/17 13:45 Ur Leukocyte Esterase NEGATIVE (NEGATIVE) 08/29/17 13:45 Urine RBC 0-2 /hpf (0-5) 08/29/17 13:45 Urine WBC 0-2 /hpf (0-5) 08/29/17 13:45 Ur Epithelial Cells OCCASIONAL /lpf (FEW) 08/29/17 13:45 Urine Bacteria FEW /hpf (NONE SEEN) 08/29/17 13:45 Vancomycin Trough < 2.0 ug/mL (5-10) L 09/17/17 21:34 - Physical Exam Vitals and I&O: Vital Signs Temp 97.2 F 09/21/17 06:00 Pulse 83 09/21/17 07:00 Resp 17 09/21/17 07:00 BP 94/52 09/21/17 07:00 Pulse Ox 99 09/21/17 07:00 Intake & Output 09/20/17 09/21/17 09/21/17 18:59 06:59 18:59 Intake Total 3070 476 Output Total 1999 450 Balance 1070 26 Weight (lbs) 95 lb 6 oz 94 lb 8 oz Intake: Intake, IV Amount 1920 Multivitamin Inj 10 ml In 1920 Dextrose 70% 1,210 ml In Amino Acids 8.5% 500 ml In Intralipids 20% 200 ml @ 80 mls/hr IV .Q24H [facility] Rx#:[id number] Oral 1150 476 Output: Urine 1999 Other: # Bowel Movements 2 2 Stool Characteristics Liquid Liquid Brown Brown Weight Source Bedscale Bedscale Active Medications: Current Medications Acetaminophen (Tylenol) 650 mg GT Q4HR PRN PRN Reason: Pain or Fever >101 Stop: 10/23/17 19:40 Albuterol Sulfate (Albuterol 2.5mg/3ml Neb Ud) 2.5 mg HHN Q4HRT PRN PRN Reason: Shortness of Breath Stop: 10/23/17 19:40 Artificial Tears (Artificial Tears Ophth Soln) 1 drop EACH EYE Q2H PRN PRN Reason: Dry Eye Stop: 11/10/17 10:46 Bisacodyl (Dulcolax 10 Mg Supp) 10 mg RC DAILY PRN PRN Reason: Constipation Stop: 10/23/17 19:40 Dextrose (D50w) 50 ml IVP PRN PRN; Protocol PRN Reason: hypoglycemia protocol Stop: 11/04/17 12:57 Docusate Sodium (Colace) 100 mg GT DAILY PRN PRN Reason: CONSTIPATION Stop: 10/24/17 08:59 Last Admin: 08/27/17 17:38 Dose: 100 mg Heparin Sodium (Porcine) (Heparin) 5,000 units SUBQ Q12HR [facility] Stop: 10/24/17 20:59 Last Admin: 09/21/17 10:59 Dose: Not Given Multivitamins/Minerals 10 ml/Dextrose/ Amino Acids/Electrolytes/ Fat Emulsion Intravenous 1,920 mls @ 80 mls/hr IV .Q24H [facility] Stop: 10/17/17 15:59 Last Admin: 09/20/17 15:47 Dose: 80 mls/hr Potassium Chloride (Potassium Chloride) 40 meq in 200 mls @ 50 mls/hr IV 0745 [facility] Stop: 09/21/17 13:00 Last Admin: 09/21/17 10:20 Dose: 50 mls/hr Dextrose/Sodium Chloride (D5-0.45ns) 1,000 mls @ 60 mls/hr IV .[id number] [facility] Stop: 11/20/17 07:32 Last Admin: 09/21/17 08:45 Dose: 60 mls/hr Insulin Aspart (Novolog Insulin Sliding Scale) 0 units SUBQ Q6H [facility]; Protocol Stop: 11/18/17 17:59 Last Admin: 09/21/17 06:16 Dose: Not Given Ipratropium [place] (Atrovent Neb 0.5mg/2.5ml) 0.5 mg HHN Q4HRT PRN PRN Reason: Shortness of Breath or Wheeze Stop: 10/23/17 19:40 Lactic Acid (Lac-Hydrin Cream) 1 appl TP DAILY [facility] Stop: 10/24/17 08:59 Last Admin: 09/20/17 08:40 Dose: 1 appl Lorazepam (Ativan) 1 mg IV Q4H PRN; Protocol PRN Reason: Agitation Stop: 11/19/17 07:48 Last Admin: 09/20/17 17:05 Dose: 1 mg Magnesium Hydroxide (Milk Of Magnesia) 30 ml PO HS PRN PRN Reason: Constipation Stop: 10/23/17 19:40 Megestrol Acetate (Megace) 400 mg PO BID [facility] Stop: 10/24/17 08:59 Last Admin: 09/21/17 10:58 Dose: Not Given Mirtazapine (Remeron) 15 mg PO HS [facility]; Protocol Stop: 10/30/17 20:59 Last Admin: 09/20/17 20:46 Dose: 15 mg Miscellaneous (Vte Chemical Prophylaxis Screen/ Admission) 1 ea MC PRN PRN PRN Reason: PROTOCOL Stop: 10/24/17 09:26 Miscellaneous (Probiotic Screen) 1 ea MC PRN PRN PRN Reason: PROTOCOL Stop: 10/29/17 08:59 Miscellaneous (Ppn Per Pharmacy) 1 ea MC PRN PRN PRN Reason: PPN PER RX Stop: 11/11/17 14:29 Olanzapine (Zyprexa) 5 mg PO HS [facility]; Protocol Stop: 10/23/17 20:59 Last Admin: 09/20/17 20:46 Dose: 5 mg Sodium Phosphate (Fleet Enema) 135 ml RC DAILY PRN PRN Reason: Constipation Stop: 10/23/17 19:40 General: demented, disheveled, thin, cachectic HEENT: NC/AT, PERRLA Neck: Supple, No JVD, No LAD Lungs: chest deformity present Cardiovascular: RRR, Normal S1, Normal S2, with murmur Abdomen: soft, non-tender, thin, positive bowel sound Extremities: excoriation, contracture, deformity Neurological: disorganized, muscle weakness, unable to follow command - Procedures Procedures: Procedures Procedure Code Date RECREATIONAL THERAPY 93.81 11/09/10 Internal Medicine Assmt/Plan - Assessment Assessment: Failure to thrive poor p.o. intake severe protein-caloric malnutrition diabetes congestive heart failure acute on chronic renal insufficiency schizoaffective disorder hypertension hypokalemia dementia legally blind leukocytosis bedbound. noncompliant - Plan Plan: continue with PPn for nutritional support ivf for hydration monitor electrolytes need PEG PLACEMENT, awaiting for conservator. continue current plan of care Nutritional Asmnt/Malnutr-PDOC - Dietary Evaluation Malnutrition Findings (Please click <Entered> for more info): Nutritional Asmnt/Malnutrition Start: 08/25/17 17: 28 Text: Status: Complete Freq: Protocol: Document 08/25/17 17:28 LCHENG (Rec: 08/25/17 17:32 [email or web address]) Nutritional Asmnt/Malnutrition Patient General Information Nutritional Screening High Risk Consult Diagnosis dehydration, FTT Pertinent Medical Hx/Surgical Hx DM, CHF, kidney failure, schizophrenia, HTN, dementia, legally blind, noncompliance Subjective Information Consult received for poor oral intake. Pt seen resting in bed at time of visit. Per nurse note, pt refused breakfast and lunch today. Pt on calorie count noted. Current Diet Order/ Nutrition Support pureed, nectar thin liquid Pertinent Medications D5-0.45ns, colace, novolog, megace Pertinent Labs 7/2 K 3.0, glucose 106 Nutritional Hx/Data Height 5 ft 6 in Height (Calculated Centimeters) 167.6 Current Weight (lbs) 111 lb Weight (Calculated Kilograms) 50.3 Weight (Calculated Grams) 07923.8 [place] Body Weight 130 Body Mass Index (BMI) 17.9 Weight Status Underweight GI Symptoms GI Symptoms None Last BM none Skin Integrity/Comment: redness Estimated Nutritional Goals BEE in Kcals: Using Current wt Calories/Kcals/Kg 30-35 Kcals Calculated 5671-9063 Protein: Using Current wt Protein g/k.2 Protein Calculated 60 Fluid: ml 1500-1750ml (1ml/kcal) Nutritional Problem 1. Problem Problem inadequate food intake Etiology pt refusing to eat Signs/Symptoms: PO intake <25% since admission Malnutrition Alert Muscle Mass (Non-Severe) Mild Depletion Is there a minimum of two criteria No selected? Query Text:Check all the applicable criteria. A minimum of two criteria are recommended for diagnosis of either severe or non-severe malnutrition. Malnutrition Related to Morbid Obesity Malnutrition related to morbid obesity No Intervention/Recommendation Comments 1. Continue with current diet as ordered. Assist pt with meals and encourage oral intake. 2. Monitor PO intake, wt, labs and skin integrity 3. F/U as high risk in 2-3 days, 08/27-08/28 Expected Outcomes/Goals Expected Outcomes/Goals 1. PO intake to meet at least 75% of nutritional needs. 2. Wt stability, skin to remain intact, labs to approach WNL.
[2017-09-21] MEDS: TPN 8.5%-70% CUSTOM IV SCH (17:00)
[2017-09-21] MEDS: Ammonium Lactate Cream 140 gm Tube TP SCH (17:40)
[2017-09-22 06:10] LABS: % BASOPHILS 0.4 % (0.0-2.0); % EOSINOPHILS 1.7 % (0.0-5.0); % LYMPHOCYTES 24.3 % (20.0-50.0); % MONOCYTES 6.6 % (2.0-10.0); EOSINOPHILE ABSOLUTE 0.1 Th/cmm (0.1-0.4); HEMATOCRIT 27.9 % (41.0-60); HEMOGLOBIN 9.5 gm/dL (12-16); LYMPHOCYTE ABSOLUTE 1.4 Th/cmm (1.5-3.0); MEAN CELL VOLUME 90.8 fl (81-100); MEAN CORPUSCULAR HEMOGLOBIN 30.8 pg (27.0-31.0); MEAN CORPUSCULAR HGB CONC 33.9 pg (28.0-36.0); MEAN PLATELET VOLUME 9.9 fl; MONOCYTE ABSOLUTE 0.4 Th/cmm (0.3-1.0); PLATELET COUNT 341 Th/cmm (150-400); RED BLOOD COUNT 3.07 Mil/cmm (3.80-5.20); RED CELL DISTRIBUTION WIDTH 16.8 % (11.5-20.0)
[2017-09-22 06:12] LABS: ANION GAP 8.6 (7.0-16.0); BUN - UREA NITROGEN 25 mg/dL (7-25); CALCIUM SERUM 9.6 mg/dL (8.6-10.3); CHLORIDE 110 mEq/L (98-107); CREATININE - SERUM 0.7 mg/dL (0.6-1.2); GFR AFRICAN-AMERICAN > 60.0 ml/min (>90); GFR NON AFRICAN-AMERICAN > 60.0 ml/min; GLUCOSE 94 mg/dL (70-105); MAGNESIUM 2.1 mg/dL (1.9-2.7); PHOSPHOROUS 3.2 mg/dL (2.5-5.0); POTASSIUM SERUM 3.6 mEq/L (3.5-5.1); SODIUM SERUM 141 mEq/L (136-145)
[2017-09-22 06:21] LABS: WHITE BLOOD COUNT 5.9 Th/cmm (4.8-10.8)
[2017-09-22] MEDS: INSULIN ASPART SLIDING SCALE 100 UNITS/ML UNIT SUBQ SCH ×2 (12:15→20:13)
[2017-09-22] MEDS: Dextrose 50% 50 mL Abboject IVP PRN ×2 (12:15→17:27)
--- NOTE | 2017-09-22 14:06 | Internal Medicine Prog Note ---
Internal Medicine Subjective - Subjective Service Date: 09/22/17 Patient is:: awake, in bed, other Patient Complaints of:: congestion Per staff patient has:: poor appetite, poor oral intake Internal Medicine Objective - Results Result Diagrams: 09/22/17 05:30 09/22/17 05:30 Recent Labs: Laboratory Last Values WBC 5.9 Th/cmm (4.8-10.8) D 09/22/17 05:30 RBC 3.07 Mil/cmm (3.80-5.20) L 09/22/17 05:30 Hgb 9.5 gm/dL (12-16) L 09/22/17 05:30 Hct 27.9 % (41.0-60) L 09/22/17 05:30 MCV 90.8 fl (81-100) 09/22/17 05:30 MCH 30.8 pg (27.0-31.0) 09/22/17 05:30 MCHC Differential 33.9 pg (28.0-36.0) 09/22/17 05:30 RDW 16.8 % (11.5-20.0) 09/22/17 05:30 Plt Count 341 Th/cmm (150-400) 09/22/17 05:30 MPV 9.9 fl 09/22/17 05:30 Neutrophils % 67.0 % (40.0-80.0) 09/22/17 05:30 Lymphocytes % 24.3 % (20.0-50.0) 09/22/17 05:30 Monocytes % 6.6 % (2.0-10.0) 09/22/17 05:30 Eosinophils % 1.7 % (0.0-5.0) 09/22/17 05:30 Basophils % 0.4 % (0.0-2.0) 09/22/17 05:30 Sodium 141 mEq/L (136-145) 09/22/17 05:30 Potassium 3.6 mEq/L (3.5-5.1) 09/22/17 05:30 Chloride 110 mEq/L (98-107) H 09/22/17 05:30 Carbon Dioxide 26.0 mEq/L (21.0-31.0) 09/22/17 05:30 Anion Gap 8.6 (7.0-16.0) 09/22/17 05:30 BUN 25 mg/dL (7-25) 09/22/17 05:30 Creatinine 0.7 mg/dL (0.6-1.2) 09/22/17 05:30 Est GFR ( Amer) > 60.0 ml/min (>90) 09/22/17 05:30 Est GFR (Non-Af Amer) > 60.0 ml/min 09/22/17 05:30 BUN/Creatinine Ratio 35.7 09/22/17 05:30 Glucose 94 mg/dL (70-105) 09/22/17 05:30 POC Glucose 188 MG/DL (70 - 105) H 09/22/17 12:53 Calcium 9.6 mg/dL (8.6-10.3) 09/22/17 05:30 Phosphorus 3.2 mg/dL (2.5-5.0) 09/22/17 05:30 Magnesium 2.1 mg/dL (1.9-2.7) 09/22/17 05:30 Total Bilirubin 0.4 mg/dL (0.3-1.0) 09/19/17 05:00 Direct Bilirubin 0.14 mg/dL (0.0-0.2) 09/08/17 05:35 AST 16 U/L (13-39) 09/19/17 05:00 ALT 11 U/L (7-52) 09/19/17 05:00 Alkaline Phosphatase 53 U/L (34-104) 09/19/17 05:00 Ammonia 43 umol/L (16-53) 09/01/17 05:40 B-Natriuretic Peptide 86.7 pg/mL (5.0-100.0) 08/31/17 05:00 Total Protein 5.5 gm/dL (6.0-8.3) L 09/19/17 05:00 Albumin 2.8 gm/dL (3.7-5.3) L 09/19/17 05:00 Globulin 2.7 gm/dL 09/19/17 05:00 Albumin/Globulin Ratio 1.0 (1.0-1.8) 09/19/17 05:00 Prealbumin 14 mg/dL (10-36) 09/16/17 05:45 Triglycerides 100 mg/dL (<150) 09/16/17 05:45 Cholesterol 190 mg/dL (<200) 09/16/17 05:45 Vitamin B12 790 pg/mL (232-1245) 09/01/17 05:40 Folic Acid 4.8 ng/mL (>3.0) 09/01/17 05:40 TSH 1.63 uIU/ml (0.34-5.60) 09/01/17 05:40 Urine Source [place] 08/29/17 13:45 Urine Color YELLOW 08/29/17 13:45 Urine Clarity SLIGHTLY [place]ZY (CLEAR) 08/29/17 13:45 Urine pH 7.5 (4.6 - 8.0) 08/29/17 13:45 Ur Specific [place] 1.010 (1.005-1.030) 08/29/17 13:45 Urine Protein NEGATIVE mg/dL (NEGATIVE) 08/29/17 13:45 Urine Glucose (UA) NEGATIVE mg/dL (NEGATIVE) 08/29/17 13:45 Urine Ketones NEGATIVE mg/dL (NEGATIVE) 08/29/17 13:45 Urine Blood TRACE (NEGATIVE) 08/29/17 13:45 Urine Nitrate NEGATIVE (NEGATIVE) 08/29/17 13:45 Urine Bilirubin NEGATIVE (NEGATIVE) 08/29/17 13:45 Urine Urobilinogen 0.2 E.U./dL (0.2 - 1.0) 08/29/17 13:45 Ur Leukocyte Esterase NEGATIVE (NEGATIVE) 08/29/17 13:45 Urine RBC 0-2 /hpf (0-5) 08/29/17 13:45 Urine WBC 0-2 /hpf (0-5) 08/29/17 13:45 Ur Epithelial Cells OCCASIONAL /lpf (FEW) 08/29/17 13:45 Urine Bacteria FEW /hpf (NONE SEEN) 08/29/17 13:45 Vancomycin Trough < 2.0 ug/mL (5-10) L 09/17/17 21:34 - Physical Exam Vitals and I&O: Vital Signs Temp 97.3 F 09/22/17 12:00 Pulse 71 09/22/17 12:00 Resp 18 09/22/17 12:00 BP 117/63 09/22/17 12:00 Pulse Ox 97 09/22/17 12:00 Intake & Output 09/21/17 09/22/17 09/22/17 18:59 06:59 18:59 Intake Total 2880 Output Total 900 250 Balance 1979 -250 Weight (lbs) 94 lb 94 lb Intake: Intake, IV Amount 1920 Multivitamin Inj 10 ml In 1920 Dextrose 70% 1,210 ml In Amino Acids 8.5% 500 ml In Intralipids 20% 200 ml @ 80 mls/hr IV .Q24H [facility] Rx#:[id number] Oral 0 TPN/PPN 960 Output: Urine 900 Other 250 Other: # Bowel Movements 1 1 Stool Characteristics Liquid Brown [facility] Active Medications: Current Medications Acetaminophen (Tylenol) 650 mg GT Q4HR PRN PRN Reason: Pain or Fever >101 Stop: 10/23/17 19:40 Albuterol Sulfate (Albuterol 2.5mg/3ml Neb Ud) 2.5 mg HHN Q4HRT PRN PRN Reason: Shortness of Breath Stop: 10/23/17 19:40 Artificial Tears (Artificial Tears Ophth Soln) 1 drop EACH EYE Q2H PRN PRN Reason: Dry Eye Stop: 11/10/17 10:46 Bisacodyl (Dulcolax 10 Mg Supp) 10 mg RC DAILY PRN PRN Reason: Constipation Stop: 10/23/17 19:40 Dextrose (D50w) 50 ml IVP PRN PRN; Protocol PRN Reason: hypoglycemia protocol Stop: 11/04/17 12:57 Last Admin: 09/22/17 12:15 Dose: 50 ml Docusate Sodium (Colace) 100 mg GT DAILY PRN PRN Reason: CONSTIPATION Stop: 10/24/17 08:59 Last Admin: 08/27/17 17:38 Dose: 100 mg Multivitamins/Minerals 10 ml/Dextrose/ Amino Acids/Electrolytes/ Fat Emulsion Intravenous 1,920 mls @ 80 mls/hr IV .Q24H [facility] Stop: 10/17/17 15:59 Last Admin: 09/21/17 17:00 Dose: 80 mls/hr Dextrose/Sodium Chloride (D5-0.45ns) 1,000 mls @ 60 mls/hr IV .[id number] [facility] Stop: 11/20/17 07:32 Last Admin: 09/21/17 08:45 Dose: 60 mls/hr Insulin Aspart (Novolog Insulin Sliding Scale) 0 units SUBQ Q6H [facility]; Protocol Stop: 11/18/17 17:59 Last Admin: 09/22/17 12:15 Dose: Not Given Ipratropium [place] (Atrovent Neb 0.5mg/2.5ml) 0.5 mg HHN Q4HRT PRN PRN Reason: Shortness of Breath or Wheeze Stop: 10/23/17 19:40 Lactic Acid (Lac-Hydrin Cream) 1 appl TP DAILY [facility] Stop: 10/24/17 08:59 Last Admin: 09/21/17 17:40 Dose: Not Given Lorazepam (Ativan) 1 mg IV Q4H PRN; Protocol PRN Reason: Agitation Stop: 11/19/17 07:48 Last Admin: 09/20/17 17:05 Dose: 1 mg Magnesium Hydroxide (Milk Of Magnesia) 30 ml PO HS PRN PRN Reason: Constipation Stop: 10/23/17 19:40 Megestrol Acetate (Megace) 400 mg PO BID [facility] Stop: 10/24/17 08:59 Last Admin: 09/22/17 10:50 Dose: Not Given Midodrine (Proamatine) 2.5 mg PO TID [facility] Stop: 11/20/17 20:59 Last Admin: 09/22/17 10:50 Dose: Not Given Mirtazapine (Remeron) 15 mg PO [facility]; Protocol Stop: 10/30/17 20:59 Last Admin: 09/21/17 21:00 Dose: 15 mg Miscellaneous (Vte Chemical Prophylaxis Screen/ Admission) 1 ea MC PRN PRN PRN Reason: PROTOCOL Stop: 10/24/17 09:26 Miscellaneous (Probiotic Screen) 1 ea MC PRN PRN PRN Reason: PROTOCOL Stop: 10/29/17 08:59 Miscellaneous (Ppn Per Pharmacy) 1 ea MC PRN PRN PRN Reason: PPN PER RX Stop: 11/11/17 14:29 Olanzapine (Zyprexa) 5 mg PO HS [facility]; Protocol Stop: 10/23/17 20:59 Last Admin: 09/21/17 21:00 Dose: 5 mg Sodium Phosphate (Fleet Enema) 135 ml RC DAILY PRN PRN Reason: Constipation Stop: 10/23/17 19:40 General: demented, disheveled, thin, cachectic HEENT: NC/AT, PERRLA Neck: Supple, No JVD, No LAD Lungs: chest deformity present Cardiovascular: RRR, Normal S1, Normal S2, with murmur Abdomen: soft, non-tender, thin, positive bowel sound Extremities: excoriation, contracture, deformity Neurological: disorganized, muscle weakness, unable to follow command - Procedures Procedures: Procedures Procedure Code Date RECREATIONAL THERAPY 93.81 11/09/10 Internal Medicine Assmt/Plan - Assessment Assessment: Failure to thrive poor p.o. intake severe protein-caloric malnutrition diabetes congestive heart failure acute on chronic renal insufficiency schizoaffective disorder hypertension hypokalemia dementia legally blind leukocytosis bedbound. noncompliant - Plan Plan: continue with PPn for nutritional support ivf for hydration monitor electrolytes need PEG PLACEMENT, awaiting for conservator. continue current plan of care Nutritional Asmnt/Malnutr-PDOC - Dietary Evaluation Malnutrition Findings (Please click <Entered> for more info): Nutritional Asmnt/Malnutrition Start: 08/25/17 17: 28 Text: Status: Complete Freq: Protocol: Document 08/25/17 17:28 [email or web address] (Rec: 08/25/17 17:32 [email or web address]) Nutritional Asmnt/Malnutrition Patient General Information Nutritional Screening High Risk Consult Diagnosis dehydration, FTT Pertinent Medical Hx/Surgical Hx DM, CHF, kidney failure, schizophrenia, HTN, dementia, legally blind, noncompliance Subjective Information Consult received for poor oral intake. Pt seen resting in bed at time of visit. Per nurse note, pt refused breakfast and lunch today. Pt on calorie count noted. Current Diet Order/ Nutrition Support pureed, nectar thin liquid Pertinent Medications D5-0.45ns, colace, novolog, megace Pertinent Labs 7/2 K 3.0, glucose 106 Nutritional Hx/Data Height 5 ft 6 in Height (Calculated Centimeters) 167.6 Current Weight (lbs) 111 lb Weight (Calculated Kilograms) 50.3 Weight (Calculated Grams) 72681.8 [place] Body Weight 130 Body Mass Index (BMI) 17.9 Weight Status Underweight GI Symptoms GI Symptoms None Last BM none Skin Integrity/Comment: redness Estimated Nutritional Goals BEE in Kcals: Using Current wt Calories/Kcals/Kg 30-35 Kcals Calculated 8254-1158 Protein: Using Current wt Protein g/k.2 Protein Calculated 60 Fluid: ml 1500-1750ml (1ml/kcal) Nutritional Problem 1. Problem Problem inadequate food intake Etiology pt refusing to eat Signs/Symptoms: PO intake <25% since admission Malnutrition Alert Muscle Mass (Non-Severe) Mild Depletion Is there a minimum of two criteria No selected? Query Text:Check all the applicable criteria. A minimum of two criteria are recommended for diagnosis of either severe or non-severe malnutrition. Malnutrition Related to Morbid Obesity Malnutrition related to morbid obesity No Intervention/Recommendation Comments 1. Continue with current diet as ordered. Assist pt with meals and encourage oral intake. 2. Monitor PO intake, wt, labs and skin integrity 3. F/U as high risk in 2-3 days, 08/27-08/28 Expected Outcomes/Goals Expected Outcomes/Goals 1. PO intake to meet at least 75% of nutritional needs. 2. Wt stability, skin to remain intact, labs to approach WNL.
[2017-09-22] MEDS: TPN 8.5%-70% CUSTOM IV SCH (17:27)
[2017-09-22] MEDS ORDERED: INSULIN ASPART SLIDING SCALE 100 UNITS/ML UNIT SUBQ SCH ×2 (17:30→18:22)
[2017-09-22] MEDS: Ammonium Lactate Cream 140 gm Tube TP SCH (17:37)
[2017-09-22] MEDS: Dextrose 5% 1,000 ML IV SCH (21:00)
[2017-09-23] MEDS: INSULIN ASPART SLIDING SCALE 100 UNITS/ML UNIT SUBQ SCH ×6 (04:00→20:00)
[2017-09-23 05:50] LABS: % BASOPHILS 0.9 % (0.0-2.0); % EOSINOPHILS 2.7 % (0.0-5.0); % NEUTROPHILS 70.4 % (40.0-80.0); BASOPHILE ABSOLUTE 0.1 Th/cumm (0-0.2); EOSINOPHILE ABSOLUTE 0.2 Th/cmm (0.1-0.4); HEMATOCRIT 28.9 % (41.0-60); HEMOGLOBIN 9.8 gm/dL (12-16); LYMPHOCYTE ABSOLUTE 1.3 Th/cmm (1.5-3.0); MEAN CELL VOLUME 90.3 fl (81-100); MEAN CORPUSCULAR HEMOGLOBIN 30.6 pg (27.0-31.0); MEAN CORPUSCULAR HGB CONC 33.9 pg (28.0-36.0); MEAN PLATELET VOLUME 9.5 fl; MONOCYTE ABSOLUTE 0.5 Th/cmm (0.3-1.0); NEUTROPHILE ABSOLUTE 4.7 Th/cmm (1.8-8.0); PLATELET COUNT 318 Th/cmm (150-400); RED CELL DISTRIBUTION WIDTH 16.7 % (11.5-20.0); WHITE BLOOD COUNT 6.8 Th/cmm (4.8-10.8)
[2017-09-23 06:10] LABS: ANION GAP 10.9 (7.0-16.0); BUN - UREA NITROGEN 19 mg/dL (7-25); CALCIUM SERUM 9.4 mg/dL (8.6-10.3); CARBON DIOXIDE 24.1 mEq/L (21.0-31.0); CHLORIDE 111 mEq/L (98-107); CREATININE - SERUM 0.7 mg/dL (0.6-1.2); GFR AFRICAN-AMERICAN > 60.0 ml/min (>90); GFR NON AFRICAN-AMERICAN > 60.0 ml/min; GLUCOSE 110 mg/dL (70-105); MAGNESIUM 2.1 mg/dL (1.9-2.7); PHOSPHOROUS 3.7 mg/dL (2.5-5.0); SODIUM SERUM 142 mEq/L (136-145)
[2017-09-23] MEDS: Dextrose 50% 50 mL Abboject IVP PRN ×2 (07:54→21:04)
[2017-09-23] MEDS: Ammonium Lactate Cream 140 gm Tube TP SCH (09:00)
--- NOTE | 2017-09-23 13:09 | Internal Medicine Prog Note ---
Internal Medicine Subjective - Subjective Service Date: 09/23/17 Patient is:: awake, in bed, other Per staff patient has:: poor appetite, poor oral intake Internal Medicine Objective - Results Result Diagrams: 09/23/17 05:15 09/23/17 05:15 Recent Labs: Laboratory Last Values WBC 6.8 Th/cmm (4.8-10.8) 09/23/17 05:15 RBC 3.20 Mil/cmm (3.80-5.20) L 09/23/17 05:15 Hgb 9.8 gm/dL (12-16) L 09/23/17 05:15 Hct 28.9 % (41.0-60) L 09/23/17 05:15 MCV 90.3 fl (81-100) 09/23/17 05:15 MCH 30.6 pg (27.0-31.0) 09/23/17 05:15 MCHC Differential 33.9 pg (28.0-36.0) 09/23/17 05:15 RDW 16.7 % (11.5-20.0) 09/23/17 05:15 Plt Count 318 Th/cmm (150-400) 09/23/17 05:15 MPV 9.5 fl 09/23/17 05:15 Neutrophils % 70.4 % (40.0-80.0) 09/23/17 05:15 Lymphocytes % 19.0 % (20.0-50.0) L 09/23/17 05:15 Monocytes % 7.0 % (2.0-10.0) 09/23/17 05:15 Eosinophils % 2.7 % (0.0-5.0) 09/23/17 05:15 Basophils % 0.9 % (0.0-2.0) 09/23/17 05:15 Sodium 142 mEq/L (136-145) 09/23/17 05:15 Potassium 4.0 mEq/L (3.5-5.1) 09/23/17 05:15 Chloride 111 mEq/L (98-107) H 09/23/17 05:15 Carbon Dioxide 24.1 mEq/L (21.0-31.0) 09/23/17 05:15 Anion Gap 10.9 (7.0-16.0) 09/23/17 05:15 BUN 19 mg/dL (7-25) 09/23/17 05:15 Creatinine 0.7 mg/dL (0.6-1.2) 09/23/17 05:15 Est GFR ( Amer) > 60.0 ml/min (>90) 09/23/17 05:15 Est GFR (Non-Af Amer) > 60.0 ml/min 09/23/17 05:15 BUN/Creatinine Ratio 27.1 09/23/17 05:15 Glucose 198 mg/dL (70-105) H 09/23/17 08:30 POC Glucose 66 MG/DL (70 - 105) L 09/23/17 12:05 Calcium 9.4 mg/dL (8.6-10.3) 09/23/17 05:15 Phosphorus 3.7 mg/dL (2.5-5.0) 09/23/17 05:15 Magnesium 2.1 mg/dL (1.9-2.7) 09/23/17 05:15 Total Bilirubin 0.4 mg/dL (0.3-1.0) 09/19/17 05:00 Direct Bilirubin 0.14 mg/dL (0.0-0.2) 09/08/17 05:35 AST 16 U/L (13-39) 09/19/17 05:00 ALT 11 U/L (7-52) 09/19/17 05:00 Alkaline Phosphatase 53 U/L (34-104) 09/19/17 05:00 Ammonia 43 umol/L (16-53) 09/01/17 05:40 B-Natriuretic Peptide 86.7 pg/mL (5.0-100.0) 08/31/17 05:00 Total Protein 5.5 gm/dL (6.0-8.3) L 09/19/17 05:00 Albumin 2.8 gm/dL (3.7-5.3) L 09/19/17 05:00 Globulin 2.7 gm/dL 09/19/17 05:00 Albumin/Globulin Ratio 1.0 (1.0-1.8) 09/19/17 05:00 Prealbumin 14 mg/dL (10-36) 09/16/17 05:45 Triglycerides 80 mg/dL (<150) 09/23/17 08:30 Cholesterol 147 mg/dL (<200) 09/23/17 08:30 Vitamin B12 790 pg/mL (232-1245) 09/01/17 05:40 Folic Acid 4.8 ng/mL (>3.0) 09/01/17 05:40 TSH 1.59 uIU/ml (0.34-5.60) 09/23/17 10:16 Urine Source [place] 08/29/17 13:45 Urine Color YELLOW 08/29/17 13:45 Urine Clarity SLIGHTLY HAZY (CLEAR) 08/29/17 13:45 Urine pH 7.5 (4.6 - 8.0) 08/29/17 13:45 Ur Specific [place] 1.010 (1.005-1.030) 08/29/17 13:45 Urine Protein NEGATIVE mg/dL (NEGATIVE) 08/29/17 13:45 Urine Glucose (UA) NEGATIVE mg/dL (NEGATIVE) 08/29/17 13:45 Urine Ketones NEGATIVE mg/dL (NEGATIVE) 08/29/17 13:45 Urine Blood TRACE (NEGATIVE) 08/29/17 13:45 Urine Nitrate NEGATIVE (NEGATIVE) 08/29/17 13:45 Urine Bilirubin NEGATIVE (NEGATIVE) 08/29/17 13:45 Urine Urobilinogen 0.2 E.U./dL (0.2 - 1.0) 08/29/17 13:45 Ur Leukocyte Esterase NEGATIVE (NEGATIVE) 08/29/17 13:45 Urine RBC 0-2 /hpf (0-5) 08/29/17 13:45 Urine WBC 0-2 /hpf (0-5) 08/29/17 13:45 Ur Epithelial Cells OCCASIONAL /lpf (FEW) 08/29/17 13:45 Urine Bacteria FEW /hpf (NONE SEEN) 08/29/17 13:45 Vancomycin Trough < 2.0 ug/mL (5-10) L 09/17/17 21:34 - Physical Exam Vitals and I&O: Vital Signs Temp 96.4 F 09/23/17 12:29 Pulse 66 09/23/17 12:29 Resp 18 09/23/17 12:29 BP 94/45 09/23/17 12:29 Pulse Ox 93 09/23/17 12:29 Intake & Output 09/22/17 09/23/17 09/23/17 18:59 06:59 18:59 Intake Total 1920 100 Output Total 200 Balance 1920 -100 Weight (lbs) 94 lb Intake: Intake, IV Amount 1920 Multivitamin Inj 10 ml In 1920 Dextrose 70% 1,210 ml In Amino Acids 8.5% 500 ml In Intralipids 20% 200 ml @ 80 mls/hr IV .Q24H [facility] Rx#:[id number] Oral 0 TPN/PPN 100 Output: Urine 200 Other: Weight Source Bedscale Active Medications: Current Medications Acetaminophen (Tylenol) 650 mg GT Q4HR PRN PRN Reason: Pain or Fever >101 Stop: 10/23/17 19:40 Albuterol Sulfate (Albuterol 2.5mg/3ml Neb Ud) 2.5 mg HHN Q4HRT PRN PRN Reason: Shortness of Breath Stop: 10/23/17 19:40 Artificial Tears (Artificial Tears Ophth Soln) 1 drop EACH EYE Q2H PRN PRN Reason: Dry Eye Stop: 11/10/17 10:46 Bisacodyl (Dulcolax 10 Mg Supp) 10 mg RC DAILY PRN PRN Reason: Constipation Stop: 10/23/17 19:40 Dextrose (D50w) 50 ml IVP PRN PRN; Protocol PRN Reason: hypoglycemia protocol Stop: 11/04/17 12:57 Last Admin: 09/23/17 07:54 Dose: 50 ml Docusate Sodium (Colace) 100 mg GT DAILY PRN PRN Reason: CONSTIPATION Stop: 10/24/17 08:59 Last Admin: 08/27/17 17:38 Dose: 100 mg Multivitamins/Minerals 10 ml/Dextrose/ Amino Acids/Electrolytes/ Fat Emulsion Intravenous 1,920 mls @ 80 mls/hr IV .Q24H [facility] Stop: 09/23/17 15:59 Last Admin: 09/22/17 17:27 Dose: 80 mls/hr Dextrose (D5w) 1,000 mls @ 50 mls/hr IV .Q20H [facility] Stop: 11/21/17 17:29 Last Admin: 09/22/17 21:00 Dose: 50 mls/hr Insulin Aspart (Novolog Insulin Sliding Scale) 0 units SUBQ Q4H [facility]; Protocol Stop: 11/21/17 19:59 Ipratropium [place] (Atrovent Neb 0.5mg/2.5ml) 0.5 mg HHN Q4HRT PRN PRN Reason: Shortness of Breath or Wheeze Stop: 10/23/17 19:40 Lactic Acid (Lac-Hydrin Cream) 1 appl TP DAILY [facility] Stop: 10/24/17 08:59 Last Admin: 09/23/17 09:00 Dose: Not Given Levothyroxine Sodium (Synthroid) 0.05 mg IVP DAILY [facility] Stop: 11/23/17 08:59 Lorazepam (Ativan) 1 mg IV Q4H PRN; Protocol PRN Reason: Agitation Stop: 11/19/17 07:48 Last Admin: 09/20/17 17:05 Dose: 1 mg Magnesium Hydroxide (Milk Of Magnesia) 30 ml PO HS PRN PRN Reason: Constipation Stop: 10/23/17 19:40 Megestrol Acetate (Megace) 400 mg PO BID [facility] Stop: 10/24/17 08:59 Last Admin: 09/23/17 09:30 Dose: Not Given Midodrine (Proamatine) 2.5 mg PO TID [facility] Stop: 11/20/17 20:59 Last Admin: 09/23/17 09:30 Dose: Not Given Mirtazapine (Remeron) 15 mg PO HS [facility]; Protocol Stop: 10/30/17 20:59 Last Admin: 09/22/17 21:21 Dose: Not Given Miscellaneous (Vte Chemical Prophylaxis Screen/ Admission) 1 ea MC PRN PRN PRN Reason: PROTOCOL Stop: 10/24/17 09:26 Miscellaneous (Probiotic Screen) 1 ea MC PRN PRN PRN Reason: PROTOCOL Stop: 10/29/17 08:59 Miscellaneous (Ppn Per Pharmacy) 1 ea MC PRN PRN PRN Reason: PPN PER RX Stop: 11/11/17 14:29 Olanzapine (Zyprexa) 5 mg PO HS [facility]; Protocol Stop: 10/23/17 20:59 Last Admin: 09/22/17 21:20 Dose: Not Given Sodium Phosphate (Fleet Enema) 135 ml RC DAILY PRN PRN Reason: Constipation Stop: 10/23/17 19:40 General: demented, disheveled, thin, cachectic HEENT: NC/AT, PERRLA Neck: Supple, No JVD, No LAD Lungs: chest deformity present Cardiovascular: RRR, Normal S1, Normal S2, with murmur Abdomen: soft, non-tender, thin, positive bowel sound Extremities: excoriation, contracture, deformity Neurological: disorganized, muscle weakness, unable to follow command - Procedures Procedures: Procedures Procedure Code Date RECREATIONAL THERAPY 93.81 11/09/10 Internal Medicine Assmt/Plan - Assessment Assessment: Failure to thrive poor p.o. intake severe protein-caloric malnutrition diabetes congestive heart failure acute on chronic renal insufficiency schizoaffective disorder hypertension hypokalemia dementia legally blind leukocytosis bedbound. noncompliant - Plan Plan: continue with PPn for nutritional support ivf for hydration monitor electrolytes need PEG PLACEMENT, awaiting for conservator. continue current plan of care Nutritional Asmnt/Malnutr-PDOC - Dietary Evaluation Malnutrition Findings (Please click <Entered> for more info): Nutritional Asmnt/Malnutrition Start: 08/25/17 17: 28 Text: Status: Complete Freq: Protocol: Document 08/25/17 17:28 REDD (Rec: 08/25/17 17:32 REDD [email or web address]) Nutritional Asmnt/Malnutrition Patient General Information Nutritional Screening High Risk Consult Diagnosis dehydration, FTT Pertinent Medical Hx/Surgical Hx DM, CHF, kidney failure, schizophrenia, HTN, dementia, legally blind, noncompliance Subjective Information Consult received for poor oral intake. Pt seen resting in bed at time of visit. Per nurse note, pt refused breakfast and lunch today. Pt on calorie count noted. Current Diet Order/ Nutrition Support pureed, nectar thin liquid Pertinent Medications D5-0.45ns, colace, novolog, megace Pertinent Labs 7/2 K 3.0, glucose 106 Nutritional Hx/Data Height 5 ft 6 in Height (Calculated Centimeters) 167.6 Current Weight (lbs) 111 lb Weight (Calculated Kilograms) 50.3 Weight (Calculated Grams) 14834.8 [place] Body Weight 130 Body Mass Index (BMI) 17.9 Weight Status Underweight GI Symptoms GI Symptoms None Last BM none Skin Integrity/Comment: redness Estimated Nutritional Goals BEE in Kcals: Using Current wt Calories/Kcals/Kg 30-35 Kcals Calculated 8579-8240 Protein: Using Current wt Protein g/k.2 Protein Calculated 60 Fluid: ml 1500-1750ml (1ml/kcal) Nutritional Problem 1. Problem Problem inadequate food intake Etiology pt refusing to eat Signs/Symptoms: PO intake <25% since admission Malnutrition Alert Muscle Mass (Non-Severe) Mild Depletion Is there a minimum of two criteria No selected? Query Text:Check all the applicable criteria. A minimum of two criteria are recommended for diagnosis of either severe or non-severe malnutrition. Malnutrition Related to Morbid Obesity Malnutrition related to morbid obesity No Intervention/Recommendation Comments 1. Continue with current diet as ordered. Assist pt with meals and encourage oral intake. 2. Monitor PO intake, wt, labs and skin integrity 3. F/U as high risk in 2-3 days, 08/27-08/28 Expected Outcomes/Goals Expected Outcomes/Goals 1. PO intake to meet at least 75% of nutritional needs. 2. Wt stability, skin to remain intact, labs to approach WNL.
[2017-09-23] MEDS: TPN 8.5%-70% CUSTOM IV SCH (18:11)
[2017-09-23 18:59] LABS: A1C % 5.2 % (4.0-6.0)
[2017-09-24] MEDS: INSULIN ASPART SLIDING SCALE 100 UNITS/ML UNIT SUBQ SCH ×6 (00:34→22:21)
[2017-09-24] MEDS: Dextrose 5% 1,000 ML IV SCH ×2 (00:39→22:28)
--- NOTE | 2017-09-24 03:06 | Consultation ---
DATE OF CONSULTATION: 09/23/2017 PATIENT OF: Dr. Sanchez. HISTORY AND PHYSICAL: This is a 67-year-old female patient who apparently has been refusing to eat anything. The patient is in the hospital with protein-calorie malnutrition. The patient developed bradycardia and hence Cardiology consult is requested. PAST MEDICAL HISTORY: Diabetes mellitus type 2, diabetic CKD stage II, congestive heart failure, diastolic dysfunction, chronic hypertension, hypokalemia, dementia, diabetic retinopathy with blindness, protein-calorie malnutrition, osteoporosis. FAMILY HISTORY: Unremarkable. SOCIAL HISTORY: No history of smoking, alcohol abuse. ALLERGIES: No known allergies. PHYSICAL EXAMINATION: VITAL SIGNS: Blood pressure 130/80, pulse 70, respirations 20. HEAD: Normocephalic. No lumps or bumps. EYES: Pupils equal, reactive to light. Fundi show AV nicking, sclerae white, conjunctivae pink. NECK: Carotid 2+. Normal upstroke. JVD flat. Thyroid not palpable. Lymph nodes not palpable. CHEST: Shows increased AP diameter. No kyphosis, scoliosis. LUNGS: Bilateral bronchovesicular breath sounds. HEART: PMI fifth intercostal space with lateral to midclavicular line. S1, S2. No S3, S4, soft systolic murmur. ABDOMEN: Soft. Liver, spleen not palpable. No organomegaly. Bowel sounds active. NEUROLOGIC: Unremarkable. EXTREMITIES: Peripheral pulses 2+. No pedal edema. CLINICAL IMPRESSION: Bradycardia, rule out hypothyroidism, diabetes mellitus type 2, congestive heart failure, diabetic chronic kidney disease stage II, diabetic retinopathy with blindness, hypertension, hypokalemia, dementia, protein-calorie malnutrition, osteoporosis. PLAN: We will get TSH level, echocardiogram and use atropine as needed. The patient showed to have PEG placement. JOB# [id number]
[2017-09-24 07:11] LABS: % BASOPHILS 0.4 % (0.0-2.0); % EOSINOPHILS 1.6 % (0.0-5.0); % LYMPHOCYTES 16.7 % (20.0-50.0); % MONOCYTES 5.7 % (2.0-10.0); % NEUTROPHILS 75.6 % (40.0-80.0); EOSINOPHILE ABSOLUTE 0.1 Th/cmm (0.1-0.4); HEMATOCRIT 31.2 % (41.0-60); HEMOGLOBIN 10.7 gm/dL (12-16); LYMPHOCYTE ABSOLUTE 1.2 Th/cmm (1.5-3.0); MEAN CELL VOLUME 90.7 fl (81-100); MEAN CORPUSCULAR HGB CONC 34.2 pg (28.0-36.0); MEAN PLATELET VOLUME 10.6 fl; MONOCYTE ABSOLUTE 0.4 Th/cmm (0.3-1.0); NEUTROPHILE ABSOLUTE 5.2 Th/cmm (1.8-8.0); PLATELET COUNT 307 Th/cmm (150-400); RED BLOOD COUNT 3.44 Mil/cmm (3.80-5.20); RED CELL DISTRIBUTION WIDTH 16.5 % (11.5-20.0); WHITE BLOOD COUNT 6.9 Th/cmm (4.8-10.8)
[2017-09-24 07:25] LABS: ANION GAP 11.3 (7.0-16.0); BUN - UREA NITROGEN 18 mg/dL (7-25); CALCIUM SERUM 9.7 mg/dL (8.6-10.3); CARBON DIOXIDE 22.5 mEq/L (21.0-31.0); CHLORIDE 109 mEq/L (98-107); CREATININE - SERUM 0.7 mg/dL (0.6-1.2); GFR AFRICAN-AMERICAN > 60.0 ml/min (>90); GFR NON AFRICAN-AMERICAN > 60.0 ml/min; MAGNESIUM 1.9 mg/dL (1.9-2.7); PHOSPHOROUS 3.1 mg/dL (2.5-5.0); POTASSIUM SERUM 3.8 mEq/L (3.5-5.1); SODIUM SERUM 139 mEq/L (136-145)
[2017-09-24 09:33] LABS: GLUCOSE 87 mg/dL (70-105)
[2017-09-24] MEDS: Ammonium Lactate Cream 140 gm Tube TP SCH (09:41)
--- NOTE | 2017-09-24 10:04 | Cardiology ---
09/23/[address] Sanchez. PROCEDURE: Echocardiogram. M-MODE ECHOCARDIOGRAM: Mitral valve, anterior leaflet of mitral valve shows normal excursion, EF velocity. Posterior leaflet of the mitral valve shows normal excursion. Left ventricular posterior wall shows increased thickness, normal excursion. Interventricular septum shows increased thickness, normal excursion, hypertrophy of the left ventricle, ejection fraction 74%. Left atrium normal. Aortic root shows normal dimension, normal excursion of aortic leaflets. CONCLUSION: Hypertrophy of the left ventricle, ejection fraction 74%. 2D ECHO: Long axis view showed normal sized left ventricle with hypertrophy of the left ventricle. Left atrium normal. Aortic root shows normal dimension, normal excursion of aortic leaflets. Short axis view of mitral valve normal. Short axis view of aortic valve normal. Apical four chamber view showed normal sized left ventricle with hypertrophy of the left ventricle. Left atrium normal. Right ventricular cavity, right atrium normal, no pericardial effusion. CONCLUSION: Hypertrophy of the left ventricle, ejection fraction 74%. Doppler study shows mild mitral regurgitation, moderate aortic regurgitation, mild tricuspid regurgitation, moderate pulmonary regurgitation, right ventricular systolic pressure 26 mmHg. CONCLUSION: Hypertrophy of the left ventricle, ejection fraction 74%, mild mitral regurgitation, mild tricuspid regurgitation, moderate aortic regurgitation, moderate pulmonary regurgitation. [facility]# [id number]
[2017-09-24] MEDS: Dextrose 50% 50 mL Abboject IVP PRN (12:10)
--- NOTE | 2017-09-24 14:57 | Internal Medicine Prog Note ---
Internal Medicine Subjective - Subjective Service Date: 09/24/17 Patient is:: awake, in bed, other Patient Complaints of:: congestion Per staff patient has:: poor appetite, poor oral intake Internal Medicine Objective - Results Result Diagrams: 09/24/17 05:55 09/24/17 05:55 Recent Labs: Laboratory Last Values WBC 6.9 Th/cmm (4.8-10.8) 09/24/17 05:55 RBC 3.44 Mil/cmm (3.80-5.20) L 09/24/17 05:55 Hgb 10.7 gm/dL (12-16) L 09/24/17 05:55 Hct 31.2 % (41.0-60) L 09/24/17 05:55 MCV 90.7 fl (81-100) 09/24/17 05:55 MCH 31.0 pg (27.0-31.0) 09/24/17 05:55 MCHC Differential 34.2 pg (28.0-36.0) 09/24/17 05:55 RDW 16.5 % (11.5-20.0) 09/24/17 05:55 Plt Count 307 Th/cmm (150-400) 09/24/17 05:55 MPV 10.6 fl 09/24/17 05:55 Neutrophils % 75.6 % (40.0-80.0) 09/24/17 05:55 Lymphocytes % 16.7 % (20.0-50.0) L 09/24/17 05:55 Monocytes % 5.7 % (2.0-10.0) 09/24/17 05:55 Eosinophils % 1.6 % (0.0-5.0) 09/24/17 05:55 Basophils % 0.4 % (0.0-2.0) 09/24/17 05:55 Sodium 139 mEq/L (136-145) 09/24/17 05:55 Potassium 3.8 mEq/L (3.5-5.1) 09/24/17 05:55 Chloride 109 mEq/L (98-107) H 09/24/17 05:55 Carbon Dioxide 22.5 mEq/L (21.0-31.0) 09/24/17 05:55 Anion Gap 11.3 (7.0-16.0) 09/24/17 05:55 BUN 18 mg/dL (7-25) 09/24/17 05:55 Creatinine 0.7 mg/dL (0.6-1.2) 09/24/17 05:55 Est GFR ( Amer) > 60.0 ml/min (>90) 09/24/17 05:55 Est GFR (Non-Af Amer) > 60.0 ml/min 09/24/17 05:55 BUN/Creatinine Ratio 25.7 09/24/17 05:55 Glucose 87 mg/dL (70-105) D 09/24/17 05:55 POC Glucose 46 MG/DL (70 - 105) L 09/24/17 12:50 Hemoglobin A1c % 5.2 % (4.0-6.0) 09/23/17 05:15 Calcium 9.7 mg/dL (8.6-10.3) 09/24/17 05:55 Phosphorus 3.1 mg/dL (2.5-5.0) 09/24/17 05:55 Magnesium 1.9 mg/dL (1.9-2.7) 09/24/17 05:55 Total Bilirubin 0.4 mg/dL (0.3-1.0) 09/19/17 05:00 Direct Bilirubin 0.14 mg/dL (0.0-0.2) 09/08/17 05:35 AST 16 U/L (13-39) 09/19/17 05:00 ALT 11 U/L (7-52) 09/19/17 05:00 Alkaline Phosphatase 53 U/L (34-104) 09/19/17 05:00 Ammonia 43 umol/L (16-53) 09/01/17 05:40 B-Natriuretic Peptide 86.7 pg/mL (5.0-100.0) 08/31/17 05:00 Total Protein 5.5 gm/dL (6.0-8.3) L 09/19/17 05:00 Albumin 2.8 gm/dL (3.7-5.3) L 09/19/17 05:00 Globulin 2.7 gm/dL 09/19/17 05:00 Albumin/Globulin Ratio 1.0 (1.0-1.8) 09/19/17 05:00 Prealbumin 21 mg/dL (10-36) 09/23/17 10:16 Triglycerides 80 mg/dL (<150) 09/23/17 08:30 Cholesterol 147 mg/dL (<200) 09/23/17 08:30 Vitamin B12 790 pg/mL (232-1245) 09/01/17 05:40 Folic Acid 4.8 ng/mL (>3.0) 09/01/17 05:40 TSH 1.59 uIU/ml (0.34-5.60) 09/23/17 10:16 Urine Source [place] 08/29/17 13:45 Urine Color YELLOW 08/29/17 13:45 Urine Clarity SLIGHTLY HAZY (CLEAR) 08/29/17 13:45 Urine pH 7.5 (4.6 - 8.0) 08/29/17 13:45 Ur Specific [place] 1.010 (1.005-1.030) 08/29/17 13:45 Urine Protein NEGATIVE mg/dL (NEGATIVE) 08/29/17 13:45 Urine Glucose (UA) NEGATIVE mg/dL (NEGATIVE) 08/29/17 13:45 Urine Ketones NEGATIVE mg/dL (NEGATIVE) 08/29/17 13:45 Urine Blood TRACE (NEGATIVE) 08/29/17 13:45 Urine Nitrate NEGATIVE (NEGATIVE) 08/29/17 13:45 Urine Bilirubin NEGATIVE (NEGATIVE) 08/29/17 13:45 Urine Urobilinogen 0.2 E.U./dL (0.2 - 1.0) 08/29/17 13:45 Ur Leukocyte Esterase NEGATIVE (NEGATIVE) 08/29/17 13:45 Urine RBC 0-2 /hpf (0-5) 08/29/17 13:45 Urine WBC 0-2 /hpf (0-5) 08/29/17 13:45 Ur Epithelial Cells OCCASIONAL /lpf (FEW) 08/29/17 13:45 Urine Bacteria FEW /hpf (NONE SEEN) 08/29/17 13:45 Vancomycin Trough < 2.0 ug/mL (5-10) L 09/17/17 21:34 HIV 1&2 Antibody Screen NEGATIVE (NEG) 09/24/17 05:55 - Physical Exam Vitals and I&O: Vital Signs Temp 97.5 F 09/24/17 13:58 Pulse 54 09/24/17 13:58 Resp 16 08/01/18 13:58 BP 115/82 09/24/17 13:58 Pulse Ox 90 09/24/17 11:52 Intake & Output 09/23/17 09/24/17 09/24/17 18:59 06:59 18:59 Intake Total 2920 Balance 2920 Intake: Intake, IV Amount 2920 Dextrose 5% 1,000 ml @ 50 1000 mls/hr IV .Q20H [facility] Rx#: [id number] Active Medications: Current Medications Acetaminophen (Tylenol) 650 mg GT Q4HR PRN PRN Reason: Pain or Fever >101 Stop: 10/23/17 19:40 Albuterol Sulfate (Albuterol 2.5mg/3ml Neb Ud) 2.5 mg HHN Q4HRT PRN PRN Reason: Shortness of Breath Stop: 10/23/17 19:40 Artificial Tears (Artificial Tears Ophth Soln) 1 drop EACH EYE Q2H PRN PRN Reason: Dry Eye Stop: 11/10/17 10:46 Bisacodyl (Dulcolax 10 Mg Supp) 10 mg RC DAILY PRN PRN Reason: Constipation Stop: 10/23/17 19:40 Dextrose (D50w) 50 ml IVP PRN PRN; Protocol PRN Reason: hypoglycemia protocol Stop: 11/04/17 12:57 Last Admin: 09/24/17 12:10 Dose: 50 ml Docusate Sodium (Colace) 100 mg GT DAILY PRN PRN Reason: CONSTIPATION Stop: 10/24/17 08:59 Last Admin: 08/27/17 17:38 Dose: 100 mg Dextrose (D5w) 1,000 mls @ 50 mls/hr IV .Q20H [facility] Stop: 11/21/17 17:29 Last Admin: 09/24/17 00:39 Dose: 50 mls/hr Insulin Aspart (Novolog Insulin Sliding Scale) 0 units SUBQ Q4H [facility]; Protocol Stop: 11/21/17 19:59 Last Admin: 09/24/17 12:08 Dose: Not Given Ipratropium [place] (Atrovent Neb 0.5mg/2.5ml) 0.5 mg HHN Q4HRT PRN PRN Reason: Shortness of Breath or Wheeze Stop: 10/23/17 19:40 Lactic Acid (Lac-Hydrin Cream) 1 appl TP DAILY [facility] Stop: 10/24/17 08:59 Last Admin: 09/24/17 09:41 Dose: Not Given Levothyroxine Sodium (Synthroid) 0.05 mg IVP QDAC [facility] Stop: 11/23/17 07:29 Last Admin: 09/24/17 08:19 Dose: Not Given Levothyroxine Sodium (Synthroid) 0.1 mg PO QDAC [facility] Stop: 11/24/17 07:29 Lorazepam (Ativan) 1 mg IV Q4H PRN; Protocol PRN Reason: Agitation Stop: 11/19/17 07:48 Last Admin: 09/20/17 17:05 Dose: 1 mg Magnesium Hydroxide (Milk Of Magnesia) 30 ml PO HS PRN PRN Reason: Constipation Stop: 10/23/17 19:40 Megestrol Acetate (Megace) 400 mg PO BID [facility] Stop: 10/24/17 08:59 Last Admin: 09/24/17 08:56 Dose: Not Given Midodrine (Proamatine) 2.5 mg PO TID [facility] Stop: 11/20/17 20:59 Last Admin: 09/24/17 08:56 Dose: Not Given Mirtazapine (Remeron) 15 mg PO HS [facility]; Protocol Stop: 10/30/17 20:59 Last Admin: 09/23/17 22:44 Dose: Not Given Miscellaneous (Vte Chemical Prophylaxis Screen/ Admission) 1 ea PRN PRN PRN Reason: PROTOCOL Stop: 10/24/17 09:26 Miscellaneous (Probiotic Screen) 1 ea PRN PRN PRN Reason: PROTOCOL Stop: 10/29/17 08:59 Miscellaneous (Ppn Per Pharmacy) 1 ea PRN PRN PRN Reason: PPN PER RX Stop: 11/11/17 14:29 Olanzapine (Zyprexa) 5 mg PO HS [facility]; Protocol Stop: 10/23/17 20:59 Last Admin: 09/23/17 22:44 Dose: Not Given Sodium Phosphate (Fleet Enema) 135 ml RC DAILY PRN PRN Reason: Constipation Stop: 10/23/17 19:40 Theophylline ([place]lijah-Dur) 200 mg PO BID [facility] Stop: 11/23/17 16:59 General: demented, disheveled, thin, cachectic HEENT: NC/AT, PERRLA Neck: Supple, No JVD, No LAD Lungs: chest deformity present Cardiovascular: RRR, Normal S1, Normal S2, with murmur Abdomen: soft, non-tender, thin, positive bowel sound Extremities: excoriation, contracture, deformity Neurological: disorganized, muscle weakness, unable to follow command - Procedures Procedures: Procedures Procedure Code Date RECREATIONAL THERAPY 93.81 11/09/10 Internal Medicine Assmt/Plan - Assessment Assessment: Failure to thrive poor p.o. intake severe protein-caloric malnutrition diabetes congestive heart failure acute on chronic renal insufficiency schizoaffective disorder hypertension hypokalemia dementia legally blind leukocytosis bedbound. noncompliant - Plan Plan: continue with PPn for nutritional support ivf for hydration monitor electrolytes need PEG PLACEMENT, awaiting for conservator. continue current plan of care Nutritional Asmnt/Malnutr-PDOC - Dietary Evaluation Malnutrition Findings (Please click <Entered> for more info): Nutritional Asmnt/Malnutrition Start: 08/25/17 17: 28 Text: Status: Complete Freq: Protocol: Document 08/25/17 17:28 [email or web address] (Rec: 08/25/17 17:32 [email or web address]) Nutritional Asmnt/Malnutrition Patient General Information Nutritional Screening High Risk Consult Diagnosis dehydration, FTT Pertinent Medical Hx/Surgical Hx DM, CHF, kidney failure, schizophrenia, HTN, dementia, legally blind, noncompliance Subjective Information Consult received for poor oral intake. Pt seen resting in bed at time of visit. Per nurse note, pt refused breakfast and lunch today. Pt on calorie count noted. Current Diet Order/ Nutrition Support pureed, nectar thin liquid Pertinent Medications D5-0.45ns, colace, novolog, megace Pertinent Labs 7/2 K 3.0, glucose 106 Nutritional Hx/Data Height 5 ft 6 in Height (Calculated Centimeters) 167.6 Current Weight (lbs) 111 lb Weight (Calculated Kilograms) 50.3 Weight (Calculated Grams) 67470.8 [place] Body Weight 130 Body Mass Index (BMI) 17.9 Weight Status Underweight GI Symptoms GI Symptoms None Last BM none Skin Integrity/Comment: redness Estimated Nutritional Goals BEE in Kcals: Using Current wt Calories/Kcals/Kg 30-35 Kcals Calculated 0220-3673 Protein: Using Current wt Protein g/k.2 Protein Calculated 60 Fluid: ml 1500-1750ml (1ml/kcal) Nutritional Problem 1. Problem Problem inadequate food intake Etiology pt refusing to eat Signs/Symptoms: PO intake <25% since admission Malnutrition Alert Muscle Mass (Non-Severe) Mild Depletion Is there a minimum of two criteria No selected? Query Text:Check all the applicable criteria. A minimum of two criteria are recommended for diagnosis of either severe or non-severe malnutrition. Malnutrition Related to Morbid Obesity Malnutrition related to morbid obesity No Intervention/Recommendation Comments 1. Continue with current diet as ordered. Assist pt with meals and encourage oral intake. 2. Monitor PO intake, wt, labs and skin integrity 3. F/U as high risk in 2-3 days, 08/27-08/28 Expected Outcomes/Goals Expected Outcomes/Goals 1. PO intake to meet at least 75% of nutritional needs. 2. Wt stability, skin to remain intact, labs to approach WNL.
[2017-09-24] MEDS ORDERED: MULTIVITAMIN IV SCH (16:15)
[2017-09-24] MEDS ORDERED: DEXTROSE IV SCH (16:15)
[2017-09-24] MEDS ORDERED: [UNRECOGNIZED DRUG - OTHER] IV SCH (16:15)
[2017-09-24] MEDS: Theophylline 100 mg ER Tab PO SCH (18:15)
[2017-09-25] MEDS: INSULIN ASPART SLIDING SCALE 100 UNITS/ML UNIT SUBQ SCH ×6 (07:06→21:27)
[2017-09-25 07:14] LABS: % BASOPHILS 0.4 % (0.0-2.0); % EOSINOPHILS 0.8 % (0.0-5.0); % LYMPHOCYTES 17.3 % (20.0-50.0); % MONOCYTES 6.6 % (2.0-10.0); % NEUTROPHILS 74.9 % (40.0-80.0); EOSINOPHILE ABSOLUTE 0.1 Th/cmm (0.1-0.4); HEMATOCRIT 28.5 % (41.0-60); HEMOGLOBIN 9.6 gm/dL (12-16); LYMPHOCYTE ABSOLUTE 1.6 Th/cmm (1.5-3.0); MEAN CELL VOLUME 90.7 fl (81-100); MEAN CORPUSCULAR HEMOGLOBIN 30.4 pg (27.0-31.0); MEAN CORPUSCULAR HGB CONC 33.5 pg (28.0-36.0); MEAN PLATELET VOLUME 10.3 fl; MONOCYTE ABSOLUTE 0.6 Th/cmm (0.3-1.0); NEUTROPHILE ABSOLUTE 6.8 Th/cmm (1.8-8.0); PLATELET COUNT 330 Th/cmm (150-400); RED BLOOD COUNT 3.14 Mil/cmm (3.80-5.20); RED CELL DISTRIBUTION WIDTH 16.5 % (11.5-20.0); WHITE BLOOD COUNT 9.1 Th/cmm (4.8-10.8)
[2017-09-25] MEDS: Levothyroxine 0.1 Mg Tab PO SCH (07:30)
[2017-09-25 07:33] LABS: ALB/GLOB RATIO 1.3 (1.0-1.8); ALBUMIN 3.4 gm/dL (3.7-5.3); ALKALINE PHOSPHATASE 57 U/L (34-104); BILIRUBIN,TOTAL 0.7 mg/dL (0.3-1.0); BUN - UREA NITROGEN 18 mg/dL (7-25); CALCIUM SERUM 9.7 mg/dL (8.6-10.3); CARBON DIOXIDE 24.1 mEq/L (21.0-31.0); CHLORIDE 108 mEq/L (98-107); CREATININE - SERUM 0.8 mg/dL (0.6-1.2); GFR AFRICAN-AMERICAN > 60.0 ml/min (>90); GFR NON AFRICAN-AMERICAN > 60.0 ml/min; GLUCOSE 65 mg/dL (70-105); MAGNESIUM 1.9 mg/dL (1.9-2.7); PHOSPHOROUS 3.2 mg/dL (2.5-5.0); POTASSIUM SERUM 4.1 mEq/L (3.5-5.1); SGOT 28 U/L (13-39); SGPT/ALT 49 U/L (7-52); SODIUM SERUM 140 mEq/L (136-145); TOTAL PROTEIN,SERUM 6.1 gm/dL (6.0-8.3)
[2017-09-25] MEDS: Ammonium Lactate Cream 140 gm Tube TP SCH (10:02)
[2017-09-25] MEDS: Theophylline 100 mg ER Tab PO SCH ×2 (10:02→17:12)
[2017-09-25] MEDS: Dextrose 5% 1,000 ML IV SCH (10:24)
[2017-09-25 11:12] LABS: HEP A AB IGM Negative (Negative); HEP B CORE IGM Negative (Negative); HEP B SURFACE AG QL Negative (Negative); HEP C ANTIBODY 0.1 s/co ratio (0.0-0.9)
--- NOTE | 2017-09-25 14:40 | Internal Medicine Prog Note ---
Internal Medicine Subjective - Subjective Patient seen and examined:: with staff (awaiting consent), chart reviewed, other (still not eating) Patient is:: awake, non-interactive, in bed, confused, other Patient Complaints of:: congestion Per staff patient has:: poor appetite, poor oral intake Internal Medicine Objective - Results Result Diagrams: 09/25/17 06:15 09/25/17 06:15 Recent Labs: Laboratory Last Values WBC 9.1 Th/cmm (4.8-10.8) 09/25/17 06:15 RBC 3.14 Mil/cmm (3.80-5.20) L 09/25/17 06:15 Hgb 9.6 gm/dL (12-16) L 09/25/17 06:15 Hct 28.5 % (41.0-60) L 09/25/17 06:15 MCV 90.7 fl (81-100) 09/25/17 06:15 MCH 30.4 pg (27.0-31.0) 09/25/17 06:15 MCHC Differential 33.5 pg (28.0-36.0) 09/25/17 06:15 RDW 16.5 % (11.5-20.0) 09/25/17 06:15 Plt Count 330 Th/cmm (150-400) 09/25/17 06:15 MPV 10.3 fl 09/25/17 06:15 Neutrophils % 74.9 % (40.0-80.0) 09/25/17 06:15 Lymphocytes % 17.3 % (20.0-50.0) L 09/25/17 06:15 Monocytes % 6.6 % (2.0-10.0) 09/25/17 06:15 Eosinophils % 0.8 % (0.0-5.0) 09/25/17 06:15 Basophils % 0.4 % (0.0-2.0) 09/25/17 06:15 Sodium 140 mEq/L (136-145) 09/25/17 06:15 Potassium 4.1 mEq/L (3.5-5.1) 09/25/17 06:15 Chloride 108 mEq/L (98-107) H 09/25/17 06:15 Carbon Dioxide 24.1 mEq/L (21.0-31.0) 09/25/17 06:15 Anion Gap 12.0 (7.0-16.0) 09/25/17 06:15 BUN 18 mg/dL (7-25) 09/25/17 06:15 Creatinine 0.8 mg/dL (0.6-1.2) 09/25/17 06:15 Est GFR ( Amer) > 60.0 ml/min (>90) 09/25/17 06:15 Est GFR (Non-Af Amer) > 60.0 ml/min 09/25/17 06:15 BUN/Creatinine Ratio 22.5 09/25/17 06:15 Glucose 65 mg/dL (70-105) L 09/25/17 06:15 POC Glucose 81 MG/DL (70 - 105) 09/25/17 04:13 Hemoglobin A1c % 5.2 % (4.0-6.0) 09/23/17 05:15 Calcium 9.7 mg/dL (8.6-10.3) 09/25/17 06:15 Phosphorus 3.2 mg/dL (2.5-5.0) 09/25/17 06:15 Magnesium 1.9 mg/dL (1.9-2.7) 09/25/17 06:15 Total Bilirubin 0.7 mg/dL (0.3-1.0) 09/25/17 06:15 Direct Bilirubin 0.14 mg/dL (0.0-0.2) 09/08/17 05:35 AST 28 U/L (13-39) 09/25/17 06:15 ALT 49 U/L (7-52) 09/25/17 06:15 Alkaline Phosphatase 57 U/L (34-104) 09/25/17 06:15 Ammonia 43 umol/L (16-53) 09/01/17 05:40 B-Natriuretic Peptide 86.7 pg/mL (5.0-100.0) 08/31/17 05:00 Total Protein 6.1 gm/dL (6.0-8.3) 09/25/17 06:15 Albumin 3.4 gm/dL (3.7-5.3) L 09/25/17 06:15 Globulin 2.7 gm/dL 09/25/17 06:15 Albumin/Globulin Ratio 1.3 (1.0-1.8) 09/25/17 06:15 Prealbumin 21 mg/dL (10-36) 09/23/17 10:16 Triglycerides 80 mg/dL (<150) 09/23/17 08:30 Cholesterol 147 mg/dL (<200) 09/23/17 08:30 Vitamin B12 790 pg/mL (232-1245) 09/01/17 05:40 Folic Acid 4.8 ng/mL (>3.0) 09/01/17 05:40 TSH 1.59 uIU/ml (0.34-5.60) 09/23/17 10:16 Urine Source [place] 08/29/17 13:45 Urine Color YELLOW 08/29/17 13:45 Urine Clarity SLIGHTLY HAZY (CLEAR) 08/29/17 13:45 Urine pH 7.5 (4.6 - 8.0) 08/29/17 13:45 Ur Specific [place] 1.010 (1.005-1.030) 08/29/17 13:45 Urine Protein NEGATIVE mg/dL (NEGATIVE) 08/29/17 13:45 Urine Glucose (UA) NEGATIVE mg/dL (NEGATIVE) 08/29/17 13:45 Urine Ketones NEGATIVE mg/dL (NEGATIVE) 08/29/17 13:45 Urine Blood TRACE (NEGATIVE) 08/29/17 13:45 Urine Nitrate NEGATIVE (NEGATIVE) 08/29/17 13:45 Urine Bilirubin NEGATIVE (NEGATIVE) 08/29/17 13:45 Urine Urobilinogen 0.2 E.U./dL (0.2 - 1.0) 08/29/17 13:45 Ur Leukocyte Esterase NEGATIVE (NEGATIVE) 08/29/17 13:45 Urine RBC 0-2 /hpf (0-5) 08/29/17 13:45 Urine WBC 0-2 /hpf (0-5) 08/29/17 13:45 Ur Epithelial Cells OCCASIONAL /lpf (FEW) 08/29/17 13:45 Urine Bacteria FEW /hpf (NONE SEEN) 08/29/17 13:45 Vancomycin Trough < 2.0 ug/mL (5-10) L 09/17/17 21:34 Hepatitis A IgM Ab Negative (Negative) 09/24/17 05:55 Hep Bs Antigen Negative (Negative) 09/24/17 05:55 Hep B Core IgM Ab Negative (Negative) 09/24/17 05:55 Hepatitis C Antibody 0.1 s/co ratio (0.0-0.9) 09/24/17 05:55 HIV 1&2 Antibody Screen NEGATIVE (NEG) 09/24/17 05:55 - Physical Exam Vitals and I&O: Vital Signs Temp 98.6 F 09/25/17 11:12 Pulse 96 09/25/17 11:12 Resp 17 09/25/17 11:12 BP 138/88 09/25/17 11:12 Pulse Ox 92 09/25/17 11:12 Intake & Output 09/24/17 09/25/17 09/25/17 18:59 06:59 18:59 Intake Total 1000 800 Output Total 1350 Balance 1000 -550 Weight (lbs) 42.638 kg Intake: Intake, IV Amount 1000 Dextrose 5% 1,000 ml @ 50 1000 mls/hr IV .Q20H FOZIA Rx#: [id number] TPN/PPN 800 Output: Urine 1350 Stool 0 Other: # Voids 0 Weight Source Bedscale Active Medications: Current Medications Acetaminophen (Tylenol) 650 mg GT Q4HR PRN PRN Reason: Pain or Fever >101 Stop: 10/23/17 19:40 Albuterol Sulfate (Albuterol 2.5mg/3ml Neb Ud) 2.5 mg HHN Q4HRT PRN PRN Reason: Shortness of Breath Stop: 10/23/17 19:40 Artificial Tears (Artificial Tears Ophth Soln) 1 drop EACH EYE Q2H PRN PRN Reason: Dry Eye Stop: 11/10/17 10:46 Bisacodyl (Dulcolax 10 Mg Supp) 10 mg RC DAILY PRN PRN Reason: Constipation Stop: 10/23/17 19:40 Dextrose (D50w) 50 ml IVP PRN PRN; Protocol PRN Reason: hypoglycemia protocol Stop: 11/04/17 12:57 Last Admin: 09/24/17 12:10 Dose: 50 ml Docusate Sodium (Colace) 100 mg GT DAILY PRN PRN Reason: CONSTIPATION Stop: 10/24/17 08:59 Last Admin: 08/27/17 17:38 Dose: 100 mg Dextrose (D5w) 1,000 mls @ 50 mls/hr IV .Q20H FOZIA Stop: 11/21/17 17:29 Last Admin: 09/25/17 10:24 Dose: Not Given Parenteral Electrolytes 20 ml/Multivitamins/Minerals 10 ml/Dextrose/ Amino Acids /Electrolytes/ Fat Emulsion Intravenous 1,230 mls @ 80 mls/hr IV .[id number] [facility] Stop: 09/25/17 15:59 Dextrose/ Amino Acids/ (Electrolytes) 1,920 mls @ 80 mls/hr IV .Q24H FOZIA Stop: 10/24/17 15:59 Insulin Aspart (Novolog Insulin Sliding Scale) 0 units SUBQ Q4H FOZIA; Protocol Stop: 11/21/17 19:59 Last Admin: 09/25/17 12:35 Dose: Not Given Ipratropium [place] (Atrovent Neb 0.5mg/2.5ml) 0.5 mg HHN Q4HRT PRN PRN Reason: Shortness of Breath or Wheeze Stop: 10/23/17 19:40 Lactic Acid (Lac-Hydrin Cream) 1 appl TP DAILY [facility] Stop: 10/24/17 08:59 Last Admin: 09/25/17 10:02 Dose: Not Given Levothyroxine Sodium (Synthroid) 0.05 mg IVP QDAC [facility] Stop: 11/23/17 07:29 Last Admin: 09/25/17 10:14 Dose: 0.05 mg Levothyroxine Sodium (Synthroid) 0.1 mg PO QDAC [facility] Stop: 11/24/17 07:29 Last Admin: 09/25/17 07:30 Dose: Not Given Lorazepam (Ativan) 1 mg IV Q4H PRN; Protocol PRN Reason: Agitation Stop: 11/19/17 07:48 Last Admin: 09/20/17 17:05 Dose: 1 mg Magnesium Hydroxide (Milk Of Magnesia) 30 ml PO HS PRN PRN Reason: Constipation Stop: 10/23/17 19:40 Megestrol Acetate (Megace) 400 mg PO BID [facility] Stop: 10/24/17 08:59 Last Admin: 09/25/17 10:01 Dose: Not Given Midodrine (Proamatine) 2.5 mg PO TID [facility] Stop: 11/20/17 20:59 Last Admin: 09/25/17 10:02 Dose: Not Given Mirtazapine (Remeron) 15 mg PO HS [facility]; Protocol Stop: 10/30/17 20:59 Last Admin: 09/24/17 22:23 Dose: Not Given Miscellaneous (Vte Chemical Prophylaxis Screen/ Admission) 1 ea MC PRN PRN PRN Reason: PROTOCOL Stop: 10/24/17 09:26 Miscellaneous (Probiotic Screen) 1 ea MC PRN PRN PRN Reason: PROTOCOL Stop: 10/29/17 08:59 Miscellaneous (Ppn Per Pharmacy) 1 ea MC PRN PRN PRN Reason: PPN PER RX Stop: 11/11/17 14:29 Olanzapine (Zyprexa) 5 mg PO HS FO[facility]IA; Protocol Stop: 10/23/17 20:59 Last Admin: 09/24/17 22:23 Dose: Not Given Sodium Phosphate (Fleet Enema) 135 ml RC DAILY PRN PRN Reason: Constipation Stop: 10/23/17 19:40 Theophylline (Elijah-Dur) 200 mg PO BID [facility] Stop: 11/23/17 16:59 Last Admin: 09/25/17 10:02 Dose: Not Given General: demented, disheveled, thin, cachectic HEENT: NC/AT, PERRLA Neck: Supple, No JVD, No LAD Lungs: chest deformity present Cardiovascular: RRR, Normal S1, Normal S2, with murmur Abdomen: soft, non-tender, thin, positive bowel sound Extremities: excoriation, contracture, deformity Neurological: disorganized, muscle weakness, unable to follow command - Procedures Procedures: Procedures Procedure Code Date RECREATIONAL THERAPY 93.81 11/09/10 Internal Medicine Assmt/Plan - Assessment Assessment: ASSESSMENT AND PLAN: Failure to thrive, poor p.o. intake, severe protein-caloric malnutrition, diabetes, congestive heart failure, acute on chronic renal insufficiency, schizoaffective disorder, hypertension, hypokalemia, dementia, legally blind, leukocytosis, and bedbound. - Plan Plan: plan paperworks to be submitted to court fileed up several times We will continue the patient on oxygen and bronchodilator treatments. We will continue with __ivf__. We will perform calorie count. If intake is poor, he may consider alternative means of feeding. We will try to get all the conservative as far as the advance directive, continue with current care with followup consult and recommendations. Psych is following. Nutritional Asmnt/Malnutr-PDOC - Dietary Evaluation Malnutrition Findings (Please click <Entered> for more info): Nutritional Asmnt/Malnutrition Start: 08/25/17 17: 28 Text: Status: Complete Freq: Protocol: Document 08/25/17 17:28 REDD (Rec: 08/25/17 17:32 REDD [id number]) Nutritional Asmnt/Malnutrition Patient General Information Nutritional Screening High Risk Consult Diagnosis dehydration, FTT Pertinent Medical Hx/Surgical Hx DM, CHF, kidney failure, schizophrenia, HTN, dementia, legally blind, noncompliance Subjective Information Consult received for poor oral intake. Pt seen resting in bed at time of visit. Per nurse note, pt refused breakfast and lunch today. Pt on calorie count noted. Current Diet Order/ Nutrition Support pureed, nectar thin liquid Pertinent Medications D5-0.45ns, colace, novolog, megace Pertinent Labs 08/25 K 3.0, glucose 106 Nutritional Hx/Data Height 1.68 m Height (Calculated Centimeters) 167.6 Current Weight (lbs) 50.349 kg Weight (Calculated Kilograms) 50.3 Weight (Calculated Grams) 31555.8 [place] Body Weight 130 Body Mass Index (BMI) 17.9 Weight Status Underweight GI Symptoms GI Symptoms None Last BM none Skin Integrity/Comment: redness Estimated Nutritional Goals BEE in Kcals: Using Current wt Calories/Kcals/Kg 30-35 Kcals Calculated 7112-9073 Protein: Using Current wt Protein g/k.2 Protein Calculated 60 Fluid: ml 1500-1750ml (1ml/kcal) Nutritional Problem 1. Problem Problem inadequate food intake Etiology pt refusing to eat Signs/Symptoms: PO intake <25% since admission Malnutrition Alert Muscle Mass (Non-Severe) Mild Depletion Is there a minimum of two criteria No selected? Query Text:Check all the applicable criteria. A minimum of two criteria are recommended for diagnosis of either severe or non-severe malnutrition. Malnutrition Related to Morbid Obesity Malnutrition related to morbid obesity No Intervention/Recommendation Comments 1. Continue with current diet as ordered. Assist pt with meals and encourage oral intake. 2. Monitor PO intake, wt, labs and skin integrity 3. F/U as high risk in 2-3 days, 08/27-08/28 Expected Outcomes/Goals Expected Outcomes/Goals 1. PO intake to meet at least 75% of nutritional needs. 2. Wt stability, skin to remain intact, labs to approach WNL.
[2017-09-25] MEDS: TPN 8.5%-70% CUSTOM IV SCH (17:11)
[2017-09-26 06:58] LABS: ANION GAP 12.8 (7.0-16.0); BUN - UREA NITROGEN 18 mg/dL (7-25); CALCIUM SERUM 9.6 mg/dL (8.6-10.3); CARBON DIOXIDE 22.5 mEq/L (21.0-31.0); CHLORIDE 108 mEq/L (98-107); CREATININE - SERUM 0.8 mg/dL (0.6-1.2); GFR AFRICAN-AMERICAN > 60.0 ml/min (>90); GFR NON AFRICAN-AMERICAN > 60.0 ml/min; GLUCOSE 101 mg/dL (70-105); MAGNESIUM 2.2 mg/dL (1.9-2.7); PHOSPHOROUS 4.4 mg/dL (2.5-5.0); POTASSIUM SERUM 4.3 mEq/L (3.5-5.1); SODIUM SERUM 139 mEq/L (136-145)
[2017-09-26 07:00] LABS: ALB/GLOB RATIO 1.3 (1.0-1.8); ALBUMIN 3.3 gm/dL (3.7-5.3); BILIRUBIN,DIRECT 0.17 mg/dL (0.0-0.2); BILIRUBIN,TOTAL 0.7 mg/dL (0.3-1.0); TOTAL PROTEIN,SERUM 5.9 gm/dL (6.0-8.3)
[2017-09-26] MEDS: INSULIN ASPART SLIDING SCALE 100 UNITS/ML UNIT SUBQ SCH ×6 (07:31→21:21)
[2017-09-26] MEDS: Dextrose 5% 1,000 ML IV SCH (07:32)
[2017-09-26] MEDS: Levothyroxine 0.1 Mg Tab PO SCH (07:41)
[2017-09-26] MEDS: Ammonium Lactate Cream 140 gm Tube TP SCH (09:57)
[2017-09-26] MEDS: Theophylline 100 mg ER Tab PO SCH ×2 (09:58→17:23)
--- NOTE | 2017-09-26 10:48 | Internal Medicine Prog Note ---
Internal Medicine Subjective - Subjective Service Date: 09/26/17 Patient is:: awake, non-interactive, in bed, confused, other Patient Complaints of:: congestion Per staff patient has:: poor appetite, poor oral intake Internal Medicine Objective - Results Result Diagrams: 09/25/17 06:15 09/26/17 06:00 Recent Labs: Laboratory Last Values WBC 9.1 Th/cmm (4.8-10.8) 09/25/17 06:15 RBC 3.14 Mil/cmm (3.80-5.20) L 09/25/17 06:15 Hgb 9.6 gm/dL (12-16) L 09/25/17 06:15 Hct 28.5 % (41.0-60) L 09/25/17 06:15 MCV 90.7 fl (81-100) 09/25/17 06:15 MCH 30.4 pg (27.0-31.0) 09/25/17 06:15 MCHC Differential 33.5 pg (28.0-36.0) 09/25/17 06:15 RDW 16.5 % (11.5-20.0) 09/25/17 06:15 Plt Count 330 Th/cmm (150-400) 09/25/17 06:15 MPV 10.3 fl 09/25/17 06:15 Neutrophils % 74.9 % (40.0-80.0) 09/25/17 06:15 Lymphocytes % 17.3 % (20.0-50.0) L 09/25/17 06:15 Monocytes % 6.6 % (2.0-10.0) 09/25/17 06:15 Eosinophils % 0.8 % (0.0-5.0) 09/25/17 06:15 Basophils % 0.4 % (0.0-2.0) 09/25/17 06:15 Sodium 139 mEq/L (136-145) 09/26/17 06:00 Potassium 4.3 mEq/L (3.5-5.1) 09/26/17 06:00 Chloride 108 mEq/L (98-107) H 09/26/17 06:00 Carbon Dioxide 22.5 mEq/L (21.0-31.0) 09/26/17 06:00 Anion Gap 12.8 (7.0-16.0) 09/26/17 06:00 BUN 18 mg/dL (7-25) 09/26/17 06:00 Creatinine 0.8 mg/dL (0.6-1.2) 09/26/17 06:00 Est GFR ( Amer) > 60.0 ml/min (>90) 09/26/17 06:00 Est GFR (Non-Af Amer) > 60.0 ml/min 09/26/17 06:00 BUN/Creatinine Ratio 22.5 09/26/17 06:00 Glucose 101 mg/dL (70-105) 09/26/17 06:00 POC Glucose 70 MG/DL (70 - 105) 09/25/17 17:49 Hemoglobin A1c % 5.2 % (4.0-6.0) 09/23/17 05:15 Calcium 9.6 mg/dL (8.6-10.3) 09/26/17 06:00 Phosphorus 4.4 mg/dL (2.5-5.0) 09/26/17 06:00 Magnesium 2.2 mg/dL (1.9-2.7) 09/26/17 06:00 Total Bilirubin 0.7 mg/dL (0.3-1.0) 09/26/17 06:00 Direct Bilirubin 0.17 mg/dL (0.0-0.2) 09/26/17 06:00 AST 24 U/L (13-39) 09/26/17 06:00 ALT 43 U/L (7-52) 09/26/17 06:00 Alkaline Phosphatase 58 U/L (34-104) 09/26/17 06:00 Ammonia 43 umol/L (16-53) 09/01/17 05:40 B-Natriuretic Peptide 86.7 pg/mL (5.0-100.0) 08/31/17 05:00 Total Protein 5.9 gm/dL (6.0-8.3) L 09/26/17 06:00 Albumin 3.3 gm/dL (3.7-5.3) L 09/26/17 06:00 Globulin 2.6 gm/dL 09/26/17 06:00 Albumin/Globulin Ratio 1.3 (1.0-1.8) 09/26/17 06:00 Prealbumin 21 mg/dL (10-36) 09/23/17 10:16 Triglycerides 80 mg/dL (<150) 09/23/17 08:30 Cholesterol 147 mg/dL (<200) 09/23/17 08:30 Vitamin B12 790 pg/mL (232-1245) 09/01/17 05:40 Folic Acid 4.8 ng/mL (>3.0) 09/01/17 05:40 TSH 1.59 uIU/ml (0.34-5.60) 09/23/17 10:16 Urine Source [place] 08/29/17 13:45 Urine Color YELLOW 08/29/17 13:45 Urine Clarity SLIGHTLY HAZY (CLEAR) 08/29/17 13:45 Urine pH 7.5 (4.6 - 8.0) 08/29/17 13:45 Ur Specific [place] 1.010 (1.005-1.030) 08/29/17 13:45 Urine Protein NEGATIVE mg/dL (NEGATIVE) 08/29/17 13:45 Urine Glucose (UA) NEGATIVE mg/dL (NEGATIVE) 08/29/17 13:45 Urine Ketones NEGATIVE mg/dL (NEGATIVE) 08/29/17 13:45 Urine Blood TRACE (NEGATIVE) 08/29/17 13:45 Urine Nitrate NEGATIVE (NEGATIVE) 08/29/17 13:45 Urine Bilirubin NEGATIVE (NEGATIVE) 08/29/17 13:45 Urine Urobilinogen 0.2 E.U./dL (0.2 - 1.0) 08/29/17 13:45 Ur Leukocyte Esterase NEGATIVE (NEGATIVE) 08/29/17 13:45 Urine RBC 0-2 /hpf (0-5) 08/29/17 13:45 Urine WBC 0-2 /hpf (0-5) 08/29/17 13:45 Ur Epithelial Cells OCCASIONAL /lpf (FEW) 08/29/17 13:45 Urine Bacteria FEW /hpf (NONE SEEN) 08/29/17 13:45 Vancomycin Trough < 2.0 ug/mL (5-10) L 09/17/17 21:34 Hepatitis A IgM Ab Negative (Negative) 09/24/17 05:55 Hep Bs Antigen Negative (Negative) 09/24/17 05:55 Hep B Core IgM Ab Negative (Negative) 09/24/17 05:55 Hepatitis C Antibody 0.1 s/co ratio (0.0-0.9) 09/24/17 05:55 HIV 1&2 Antibody Screen NEGATIVE (NEG) 09/24/17 05:55 - Physical Exam Vitals and I&O: Vital Signs Temp 98.3 F 09/26/17 08:00 Pulse 97 09/26/17 08:00 Resp 18 09/26/17 08:00 BP 131/81 09/26/17 08:00 Pulse Ox 95 09/26/17 08:00 Intake & Output 09/25/17 09/26/17 09/26/17 18:59 06:59 18:59 Intake Total 800 960 Output Total 1350 1100 Balance -550 -140 Weight (lbs) 94 lb 95 lb Intake: TPN/PPN 800 960 Output: Urine 1350 800 Stool 0 0 Other 300 Other: # Voids 0 Weight Source Bedscale Bedscale Active Medications: Current Medications Acetaminophen (Tylenol) 650 mg GT Q4HR PRN PRN Reason: Pain or Fever >101 Stop: 10/23/17 19:40 Albuterol Sulfate (Albuterol 2.5mg/3ml Neb Ud) 2.5 mg HHN Q4HRT PRN PRN Reason: Shortness of Breath Stop: 10/23/17 19:40 Artificial Tears (Artificial Tears Ophth Soln) 1 drop EACH EYE Q2H PRN PRN Reason: Dry Eye Stop: 11/10/17 10:46 Bisacodyl (Dulcolax 10 Mg Supp) 10 mg RC DAILY PRN PRN Reason: Constipation Stop: 10/23/17 19:40 Dextrose (D50w) 50 ml IVP PRN PRN; Protocol PRN Reason: hypoglycemia protocol Stop: 11/04/17 12:57 Last Admin: 09/24/17 12:10 Dose: 50 ml Docusate Sodium (Colace) 100 mg GT DAILY PRN PRN Reason: CONSTIPATION Stop: 10/24/17 08:59 Last Admin: 08/27/17 17:38 Dose: 100 mg Dextrose (D5w) 1,000 mls @ 50 mls/hr IV .Q20H FOZIA Stop: 11/21/17 17:29 Last Admin: 09/26/17 07:32 Dose: Not Given Dextrose/ Amino Acids/ (Electrolytes) 1,920 mls @ 80 mls/hr IV .Q24H FOZIA Stop: 10/24/17 15:59 Last Admin: 09/25/17 17:11 Dose: 80 mls/hr Insulin Aspart (Novolog Insulin Sliding Scale) 0 units SUBQ Q4H FOZIA; Protocol Stop: 11/21/17 19:59 Last Admin: 09/26/17 09:57 Dose: Not Given Ipratropium [place] (Atrovent Neb 0.5mg/2.5ml) 0.5 mg HHN Q4HRT PRN PRN Reason: Shortness of Breath or Wheeze Stop: 10/23/17 19:40 Lactic Acid (Lac-Hydrin Cream) 1 appl TP DAILY [facility] Stop: 10/24/17 08:59 Last Admin: 09/26/17 09:57 Dose: Not Given Levothyroxine Sodium (Synthroid) 0.05 mg IVP QDAC [facility] Stop: 11/23/17 07:29 Last Admin: 09/26/17 07:41 Dose: Not Given Levothyroxine Sodium (Synthroid) 0.1 mg PO QDAC [facility] Stop: 11/24/17 07:29 Last Admin: 09/26/17 07:41 Dose: Not Given Lorazepam (Ativan) 1 mg IV Q4H PRN; Protocol PRN Reason: Agitation Stop: 11/19/17 07:48 Last Admin: 09/20/17 17:05 Dose: 1 mg Magnesium Hydroxide (Milk Of Magnesia) 30 ml PO HS PRN PRN Reason: Constipation Stop: 10/23/17 19:40 Megestrol Acetate (Megace) 400 mg PO BID [facility] Stop: 10/24/17 08:59 Last Admin: 09/26/17 09:58 Dose: Not Given Midodrine (Proamatine) 2.5 mg PO TID [facility] Stop: 11/20/17 20:59 Last Admin: 09/26/17 09:58 Dose: Not Given Mirtazapine (Remeron) 15 mg PO HS [facility]; Protocol Stop: 10/30/17 20:59 Last Admin: 09/25/17 20:44 Dose: Not Given Miscellaneous (Vte Chemical Prophylaxis Screen/ Admission) 1 ea MC PRN PRN PRN Reason: PROTOCOL Stop: 10/24/17 09:26 Miscellaneous (Probiotic Screen) 1 ea MC PRN PRN PRN Reason: PROTOCOL Stop: 10/29/17 08:59 Miscellaneous (Ppn Per Pharmacy) 1 ea MC PRN PRN PRN Reason: PPN PER RX Stop: 11/11/17 14:29 Olanzapine (Zyprexa) 5 mg PO HS [facility]; Protocol Stop: 10/23/17 20:59 Last Admin: 09/25/17 20:44 Dose: Not Given Sodium Phosphate (Fleet Enema) 135 ml RC DAILY PRN PRN Reason: Constipation Stop: 10/23/17 19:40 Theophylline (Elijah-Dur) 200 mg PO BID [facility] Stop: 11/23/17 16:59 Last Admin: 09/26/17 09:58 Dose: Not Given General: demented, disheveled, thin, cachectic HEENT: NC/AT, PERRLA Neck: Supple, No JVD, No LAD Lungs: chest deformity present Cardiovascular: RRR, Normal S1, Normal S2, with murmur Abdomen: soft, non-tender, thin, positive bowel sound Extremities: excoriation, contracture, deformity Neurological: disorganized, muscle weakness, unable to follow command - Procedures Procedures: Procedures Procedure Code Date RECREATIONAL THERAPY 93.81 11/09/10 Internal Medicine Assmt/Plan - Assessment Assessment: Failure to thrive poor p.o. intake severe protein-caloric malnutrition diabetes congestive heart failure acute on chronic renal insufficiency schizoaffective disorder hypertension hypokalemia dementia legally blind leukocytosis bedbound. noncompliant - Plan Plan: continue with PPn for nutritional support ivf for hydration monitor electrolytes need PEG PLACEMENT, awaiting for conservator. continue current plan of care Nutritional Asmnt/Malnutr-PDOC - Dietary Evaluation Malnutrition Findings (Please click <Entered> for more info): Nutritional Asmnt/Malnutrition Start: 08/25/17 17: 28 Text: Status: Complete Freq: Protocol: Document 08/25/17 17:28 [email or web address] (Rec: 08/25/17 17:32 [email or web address]) Nutritional Asmnt/Malnutrition Patient General Information Nutritional Screening High Risk Consult Diagnosis dehydration, FTT Pertinent Medical Hx/Surgical Hx DM, CHF, kidney failure, schizophrenia, HTN, dementia, legally blind, noncompliance Subjective Information Consult received for poor oral intake. Pt seen resting in bed at time of visit. Per nurse note, pt refused breakfast and lunch today. Pt on calorie count noted. Current Diet Order/ Nutrition Support pureed, nectar thin liquid Pertinent Medications D5-0.45ns, colace, novolog, megace Pertinent Labs 08/25 K 3.0, glucose 106 Nutritional Hx/Data Height 5 ft 6 in Height (Calculated Centimeters) 167.6 Current Weight (lbs) 111 lb Weight (Calculated Kilograms) 50.3 Weight (Calculated Grams) 24051.8 [place] Body Weight 130 Body Mass Index (BMI) 17.9 Weight Status Underweight GI Symptoms GI Symptoms None Last BM none Skin Integrity/Comment: redness Estimated Nutritional Goals BEE in Kcals: Using Current wt Calories/Kcals/Kg 30-35 Kcals Calculated 2438-4332 Protein: Using Current wt Protein g/k.2 Protein Calculated 60 Fluid: ml 1500-1750ml (1ml/kcal) Nutritional Problem 1. Problem Problem inadequate food intake Etiology pt refusing to eat Signs/Symptoms: PO intake <25% since admission Malnutrition Alert Muscle Mass (Non-Severe) Mild Depletion Is there a minimum of two criteria No selected? Query Text:Check all the applicable criteria. A minimum of two criteria are recommended for diagnosis of either severe or non-severe malnutrition. Malnutrition Related to Morbid Obesity Malnutrition related to morbid obesity No Intervention/Recommendation Comments 1. Continue with current diet as ordered. Assist pt with meals and encourage oral intake. 2. Monitor PO intake, wt, labs and skin integrity 3. F/U as high risk in 2-3 days, 08/27-08/28 Expected Outcomes/Goals Expected Outcomes/Goals 1. PO intake to meet at least 75% of nutritional needs. 2. Wt stability, skin to remain intact, labs to approach WNL.
[2017-09-26] MEDS: TPN 8.5%-70% CUSTOM IV SCH (16:03)
[2017-09-27] MEDS: INSULIN ASPART SLIDING SCALE 100 UNITS/ML UNIT SUBQ SCH ×6 (00:09→21:07)
[2017-09-27] MEDS: Dextrose 5% 1,000 ML IV SCH ×2 (00:11→16:31)
[2017-09-27 06:39] LABS: % BASOPHILS 0.1 % (0.0-2.0); % EOSINOPHILS 1.1 % (0.0-5.0); % LYMPHOCYTES 11.9 % (20.0-50.0); % MONOCYTES 6.1 % (2.0-10.0); % NEUTROPHILS 80.8 % (40.0-80.0); EOSINOPHILE ABSOLUTE 0.1 Th/cmm (0.1-0.4); HEMATOCRIT 28.4 % (41.0-60); HEMOGLOBIN 9.7 gm/dL (12-16); MEAN CELL VOLUME 91.4 fl (81-100); MEAN CORPUSCULAR HEMOGLOBIN 31.2 pg (27.0-31.0); MEAN CORPUSCULAR HGB CONC 34.1 pg (28.0-36.0); MEAN PLATELET VOLUME 10.1 fl; MONOCYTE ABSOLUTE 0.5 Th/cmm (0.3-1.0); NEUTROPHILE ABSOLUTE 6.7 Th/cmm (1.8-8.0); PLATELET COUNT 342 Th/cmm (150-400); RED CELL DISTRIBUTION WIDTH 16.5 % (11.5-20.0); WHITE BLOOD COUNT 8.3 Th/cmm (4.8-10.8)
[2017-09-27 07:10] LABS: ANION GAP 10.4 (7.0-16.0); BUN - UREA NITROGEN 21 mg/dL (7-25); CALCIUM SERUM 9.6 mg/dL (8.6-10.3); CARBON DIOXIDE 27.5 mEq/L (21.0-31.0); CHLORIDE 106 mEq/L (98-107); CREATININE - SERUM 0.8 mg/dL (0.6-1.2); GFR AFRICAN-AMERICAN > 60.0 ml/min (>90); GFR NON AFRICAN-AMERICAN > 60.0 ml/min; GLUCOSE 130 mg/dL (70-105); POTASSIUM SERUM 3.9 mEq/L (3.5-5.1); SODIUM SERUM 140 mEq/L (136-145)
[2017-09-27 07:12] LABS: PHOSPHOROUS 3.6 mg/dL (2.5-5.0)
[2017-09-27] MEDS: Levothyroxine 0.1 Mg Tab PO SCH (08:34)
[2017-09-27] MEDS: Ammonium Lactate Cream 140 gm Tube TP SCH (08:34)
[2017-09-27] MEDS: Theophylline 100 mg ER Tab PO SCH ×2 (08:34→16:11)
--- NOTE | 2017-09-27 13:18 | Internal Medicine Prog Note ---
Internal Medicine Subjective - Subjective Patient seen and examined:: with staff, chart reviewed Patient is:: asleep, non-interactive, in bed, confused, other Patient Complaints of:: congestion Per staff patient has:: poor appetite, poor oral intake Internal Medicine Objective - Results Result Diagrams: 09/27/17 06:16 09/27/17 06:16 Recent Labs: Laboratory Last Values WBC 8.3 Th/cmm (4.8-10.8) 09/27/17 06:16 RBC 3.10 Mil/cmm (3.80-5.20) L 09/27/17 06:16 Hgb 9.7 gm/dL (12-16) L 09/27/17 06:16 Hct 28.4 % (41.0-60) L 09/27/17 06:16 MCV 91.4 fl (81-100) 09/27/17 06:16 MCH 31.2 pg (27.0-31.0) H 09/27/17 06:16 MCHC Differential 34.1 pg (28.0-36.0) 09/27/17 06:16 RDW 16.5 % (11.5-20.0) 09/27/17 06:16 Plt Count 342 Th/cmm (150-400) 09/27/17 06:16 MPV 10.1 fl 09/27/17 06:16 Neutrophils % 80.8 % (40.0-80.0) H 09/27/17 06:16 Lymphocytes % 11.9 % (20.0-50.0) L 09/27/17 06:16 Monocytes % 6.1 % (2.0-10.0) 09/27/17 06:16 Eosinophils % 1.1 % (0.0-5.0) 09/27/17 06:16 Basophils % 0.1 % (0.0-2.0) 09/27/17 06:16 Sodium 140 mEq/L (136-145) 09/27/17 06:16 Potassium 3.9 mEq/L (3.5-5.1) 09/27/17 06:16 Chloride 106 mEq/L (98-107) 09/27/17 06:16 Carbon Dioxide 27.5 mEq/L (21.0-31.0) 09/27/17 06:16 Anion Gap 10.4 (7.0-16.0) 09/27/17 06:16 BUN 21 mg/dL (7-25) 09/27/17 06:16 Creatinine 0.8 mg/dL (0.6-1.2) 09/27/17 06:16 Est GFR ( Amer) > 60.0 ml/min (>90) 09/27/17 06:16 Est GFR (Non-Af Amer) > 60.0 ml/min 09/27/17 06:16 BUN/Creatinine Ratio 26.3 09/27/17 06:16 Glucose 130 mg/dL (70-105) H 09/27/17 06:16 POC Glucose 70 MG/DL (70 - 105) 09/25/17 17:49 Hemoglobin A1c % 5.2 % (4.0-6.0) 09/23/17 05:15 Calcium 9.6 mg/dL (8.6-10.3) 09/27/17 06:16 Phosphorus 3.6 mg/dL (2.5-5.0) 09/27/17 06:16 Magnesium 2.0 mg/dL (1.9-2.7) 09/27/17 06:16 Total Bilirubin 0.7 mg/dL (0.3-1.0) 09/26/17 06:00 Direct Bilirubin 0.17 mg/dL (0.0-0.2) 09/26/17 06:00 AST 24 U/L (13-39) 09/26/17 06:00 ALT 43 U/L (7-52) 09/26/17 06:00 Alkaline Phosphatase 58 U/L (34-104) 09/26/17 06:00 Ammonia 43 umol/L (16-53) 09/01/17 05:40 B-Natriuretic Peptide 86.7 pg/mL (5.0-100.0) 08/31/17 05:00 Total Protein 5.9 gm/dL (6.0-8.3) L 09/26/17 06:00 Albumin 3.3 gm/dL (3.7-5.3) L 09/26/17 06:00 Globulin 2.6 gm/dL 09/26/17 06:00 Albumin/Globulin Ratio 1.3 (1.0-1.8) 09/26/17 06:00 Prealbumin 21 mg/dL (10-36) 09/23/17 10:16 Triglycerides 80 mg/dL (<150) 09/23/17 08:30 Cholesterol 147 mg/dL (<200) 09/23/17 08:30 Vitamin B12 790 pg/mL (232-1245) 09/01/17 05:40 Folic Acid 4.8 ng/mL (>3.0) 09/01/17 05:40 TSH 1.59 uIU/ml (0.34-5.60) 09/23/17 10:16 Urine Source [place] 08/29/17 13:45 Urine Color YELLOW 08/29/17 13:45 Urine Clarity SLIGHTLY HAZY (CLEAR) 08/29/17 13:45 Urine pH 7.5 (4.6 - 8.0) 08/29/17 13:45 Ur Specific [place] 1.010 (1.005-1.030) 08/29/17 13:45 Urine Protein NEGATIVE mg/dL (NEGATIVE) 08/29/17 13:45 Urine Glucose (UA) NEGATIVE mg/dL (NEGATIVE) 08/29/17 13:45 Urine Ketones NEGATIVE mg/dL (NEGATIVE) 08/29/17 13:45 Urine Blood TRACE (NEGATIVE) 08/29/17 13:45 Urine Nitrate NEGATIVE (NEGATIVE) 08/29/17 13:45 Urine Bilirubin NEGATIVE (NEGATIVE) 08/29/17 13:45 Urine Urobilinogen 0.2 E.U./dL (0.2 - 1.0) 08/29/17 13:45 Ur Leukocyte Esterase NEGATIVE (NEGATIVE) 08/29/17 13:45 Urine RBC 0-2 /hpf (0-5) 08/29/17 13:45 Urine WBC 0-2 /hpf (0-5) 08/29/17 13:45 Ur Epithelial Cells OCCASIONAL /lpf (FEW) 08/29/17 13:45 Urine Bacteria FEW /hpf (NONE SEEN) 08/29/17 13:45 Vancomycin Trough < 2.0 ug/mL (5-10) L 09/17/17 21:34 Hepatitis A IgM Ab Negative (Negative) 09/24/17 05:55 Hep Bs Antigen Negative (Negative) 09/24/17 05:55 Hep B Core IgM Ab Negative (Negative) 09/24/17 05:55 Hepatitis C Antibody 0.1 s/co ratio (0.0-0.9) 09/24/17 05:55 HIV 1&2 Antibody Screen NEGATIVE (NEG) 09/24/17 05:55 - Physical Exam Vitals and I&O: Vital Signs Temp 97.7 F 09/27/17 11:57 Pulse 69 09/27/17 11:57 Resp 18 09/27/17 11:57 BP 116/51 09/27/17 11:57 Pulse Ox 96 09/27/17 11:57 Intake & Output 09/26/17 09/27/17 09/27/17 18:59 06:59 18:59 Intake Total 1829.333 450 Output Total 1900 Balance 1829.333 -1450 Weight (lbs) 45.926 kg Intake: Intake, IV Amount 1829.333 Dextrose 70% 1,420 ml 1829.333 Amino Acids 8.5% 500 ml @ 80 mls/hr IV .Q24H [facility] Rx#:[id number] Oral 450 Output: Urine 1900 Other: # Bowel Movements 0 Weight Source Bedscale Active Medications: Current Medications Acetaminophen (Tylenol) 650 mg GT Q4HR PRN PRN Reason: Pain or Fever >101 Stop: 10/23/17 19:40 Albuterol Sulfate (Albuterol 2.5mg/3ml Neb Ud) 2.5 mg HHN Q4HRT PRN PRN Reason: Shortness of Breath Stop: 10/23/17 19:40 Artificial Tears (Artificial Tears Ophth Soln) 1 drop EACH EYE Q2H PRN PRN Reason: Dry Eye Stop: 11/10/17 10:46 Bisacodyl (Dulcolax 10 Mg Supp) 10 mg RC DAILY PRN PRN Reason: Constipation Stop: 10/23/17 19:40 Dextrose (D50w) 50 ml IVP PRN PRN; Protocol PRN Reason: hypoglycemia protocol Stop: 11/04/17 12:57 Last Admin: 09/24/17 12:10 Dose: 50 ml Docusate Sodium (Colace) 100 mg GT DAILY PRN PRN Reason: CONSTIPATION Stop: 10/24/17 08:59 Last Admin: 08/27/17 17:38 Dose: 100 mg Dextrose (D5w) 1,000 mls @ 50 mls/hr IV .Q20H [facility] Stop: 11/21/17 17:29 Last Admin: 09/27/17 00:11 Dose: 50 mls/hr Dextrose/ Amino Acids/ (Electrolytes) 1,920 mls @ 80 mls/hr IV .Q24H [facility] Stop: 10/24/17 15:59 Last Admin: 09/26/17 16:03 Dose: 80 mls/hr Insulin Aspart (Novolog Insulin Sliding Scale) 0 units SUBQ Q4H [facility]; Protocol Stop: 11/21/17 19:59 Last Admin: 09/27/17 11:36 Dose: Not Given Ipratropium [place] (Atrovent Neb 0.5mg/2.5ml) 0.5 mg HHN Q4HRT PRN PRN Reason: Shortness of Breath or Wheeze Stop: 10/23/17 19:40 Lactic Acid (Lac-Hydrin Cream) 1 appl TP DAILY [facility] Stop: 10/24/17 08:59 Last Admin: 09/27/17 08:34 Dose: Not Given Levothyroxine Sodium (Synthroid) 0.05 mg IVP QDAC [facility] Stop: 11/23/17 07:29 Last Admin: 09/27/17 08:33 Dose: Not Given Levothyroxine Sodium (Synthroid) 0.1 mg PO QDAC [facility] Stop: 11/24/17 07:29 Last Admin: 09/27/17 08:34 Dose: Not Given Lorazepam (Ativan) 1 mg IV Q4H PRN; Protocol PRN Reason: Agitation Stop: 11/19/17 07:48 Last Admin: 09/20/17 17:05 Dose: 1 mg Magnesium Hydroxide (Milk Of Magnesia) 30 ml PO HS PRN PRN Reason: Constipation Stop: 10/23/17 19:40 Megestrol Acetate (Megace) 400 mg PO BID [facility] Stop: 10/24/17 08:59 Last Admin: 09/27/17 08:34 Dose: Not Given Midodrine (Proamatine) 2.5 mg PO TID [facility] Stop: 11/20/17 20:59 Last Admin: 09/27/17 08:34 Dose: Not Given Mirtazapine (Remeron) 15 mg PO HS [facility]; Protocol Stop: 10/30/17 20:59 Last Admin: 09/26/17 21:22 Dose: Not Given Miscellaneous (Vte Chemical Prophylaxis Screen/ Admission) 1 ea MC PRN PRN PRN Reason: PROTOCOL Stop: 10/24/17 09:26 Miscellaneous (Probiotic Screen) 1 ea MC PRN PRN PRN Reason: PROTOCOL Stop: 10/29/17 08:59 Miscellaneous (Ppn Per Pharmacy) 1 ea MC PRN PRN PRN Reason: PPN PER RX Stop: 11/11/17 14:29 Olanzapine (Zyprexa) 5 mg PO HS [facility]; Protocol Stop: 10/23/17 20:59 Last Admin: 09/26/17 21:22 Dose: Not Given Sodium Phosphate (Fleet Enema) 135 ml RC DAILY PRN PRN Reason: Constipation Stop: 10/23/17 19:40 Theophylline (Elijah-Dur) 200 mg PO BID [facility] Stop: 11/23/17 16:59 Last Admin: 09/27/17 08:34 Dose: Not Given General: demented, disheveled, thin, cachectic HEENT: NC/AT, PERRLA Neck: Supple, No JVD, No LAD Lungs: chest deformity present Cardiovascular: RRR, Normal S1, Normal S2, with murmur Abdomen: soft, non-tender, thin, positive bowel sound Extremities: excoriation, contracture, deformity Neurological: disorganized, muscle weakness, unable to follow command - Procedures Procedures: Procedures Procedure Code Date RECREATIONAL THERAPY 93.81 11/09/10 Internal Medicine Assmt/Plan - Assessment Assessment: ASSESSMENT AND PLAN: Failure to thrive, poor p.o. intake, severe protein-caloric malnutrition, diabetes, congestive heart failure, acute on chronic renal insufficiency, schizoaffective disorder, hypertension, hypokalemia, dementia, legally blind, leukocytosis, and bedbound. - Plan Plan: plan paperworks to be submitted to court fileed up several times We will continue the patient on oxygen and bronchodilator treatments. We will continue with __ivf__. We will perform calorie count. If intake is poor, he may consider alternative means of feeding. We will try to get all the conservative as far as the advance directive, continue with current care with followup consult and recommendations. Psych is following. Nutritional Asmnt/Malnutr-PDOC - Dietary Evaluation Malnutrition Findings (Please click <Entered> for more info): Nutritional Asmnt/Malnutrition Start: 08/25/17 17: 28 Text: Status: Complete Freq: Protocol: Document 08/25/17 17:28 [email or web address] (Rec: 08/25/17 17:32 [email or web address]) Nutritional Asmnt/Malnutrition Patient General Information Nutritional Screening High Risk Consult Diagnosis dehydration, FTT Pertinent Medical Hx/Surgical Hx DM, CHF, kidney failure, schizophrenia, HTN, dementia, legally blind, noncompliance Subjective Information Consult received for poor oral intake. Pt seen resting in bed at time of visit. Per nurse note, pt refused breakfast and lunch today. Pt on calorie count noted. Current Diet Order/ Nutrition Support pureed, nectar thin liquid Pertinent Medications D5-0.45ns, colace, novolog, megace Pertinent Labs / K 3.0, glucose 106 Nutritional Hx/Data Height 1.68 m Height (Calculated Centimeters) 167.6 Current Weight (lbs) 50.349 kg Weight (Calculated Kilograms) 50.3 Weight (Calculated Grams) 56004.8 [place] Body Weight 130 Body Mass Index (BMI) 17.9 Weight Status Underweight GI Symptoms GI Symptoms None Last BM none Skin Integrity/Comment: redness Estimated Nutritional Goals BEE in Kcals: Using Current wt Calories/Kcals/Kg 30-35 Kcals Calculated 3122-6985 Protein: Using Current wt Protein g/k.2 Protein Calculated 60 Fluid: ml 1500-1750ml (1ml/kcal) Nutritional Problem 1. Problem Problem inadequate food intake Etiology pt refusing to eat Signs/Symptoms: PO intake <25% since admission Malnutrition Alert Muscle Mass (Non-Severe) Mild Depletion Is there a minimum of two criteria No selected? Query Text:Check all the applicable criteria. A minimum of two criteria are recommended for diagnosis of either severe or non-severe malnutrition. Malnutrition Related to Morbid Obesity Malnutrition related to morbid obesity No Intervention/Recommendation Comments 1. Continue with current diet as ordered. Assist pt with meals and encourage oral intake. 2. Monitor PO intake, wt, labs and skin integrity 3. F/U as high risk in 2-3 days, 08/27-08/28 Expected Outcomes/Goals Expected Outcomes/Goals 1. PO intake to meet at least 75% of nutritional needs. 2. Wt stability, skin to remain intact, labs to approach WNL.
[2017-09-27] MEDS: TPN 8.5%-70% CUSTOM IV SCH (15:24)
[2017-09-28] MEDS: INSULIN ASPART SLIDING SCALE 100 UNITS/ML UNIT SUBQ SCH ×6 (00:31→22:15)
[2017-09-28 06:09] LABS: ANION GAP 10.5 (7.0-16.0); BUN - UREA NITROGEN 17 mg/dL (7-25); CALCIUM SERUM 9.4 mg/dL (8.6-10.3); CARBON DIOXIDE 25.6 mEq/L (21.0-31.0); CHLORIDE 110 mEq/L (98-107); CREATININE - SERUM 0.7 mg/dL (0.6-1.2); GFR AFRICAN-AMERICAN > 60.0 ml/min (>90); GFR NON AFRICAN-AMERICAN > 60.0 ml/min; GLUCOSE 133 mg/dL (70-105); MAGNESIUM 2.1 mg/dL (1.9-2.7); PHOSPHOROUS 3.1 mg/dL (2.5-5.0); POTASSIUM SERUM 4.1 mEq/L (3.5-5.1); SODIUM SERUM 142 mEq/L (136-145)
[2017-09-28] MEDS: Levothyroxine 0.1 Mg Tab PO SCH (08:05)
[2017-09-28] MEDS: Theophylline 100 mg ER Tab PO SCH ×2 (09:05→16:43)
[2017-09-28] MEDS: Ammonium Lactate Cream 140 gm Tube TP SCH (09:05)
--- NOTE | 2017-09-28 15:10 | Internal Medicine Prog Note ---
Internal Medicine Subjective - Subjective Patient seen and examined:: with staff, chart reviewed Patient is:: asleep, non-interactive, in bed, confused, other Patient Complaints of:: congestion Per staff patient has:: poor appetite, poor oral intake Internal Medicine Objective - Results Result Diagrams: 09/27/17 06:16 09/28/17 05:30 Recent Labs: Laboratory Last Values WBC 8.3 Th/cmm (4.8-10.8) 09/27/17 06:16 RBC 3.10 Mil/cmm (3.80-5.20) L 09/27/17 06:16 Hgb 9.7 gm/dL (12-16) L 09/27/17 06:16 Hct 28.4 % (41.0-60) L 09/27/17 06:16 MCV 91.4 fl (81-100) 09/27/17 06:16 MCH 31.2 pg (27.0-31.0) H 09/27/17 06:16 MCHC Differential 34.1 pg (28.0-36.0) 09/27/17 06:16 RDW 16.5 % (11.5-20.0) 09/27/17 06:16 Plt Count 342 Th/cmm (150-400) 09/27/17 06:16 MPV 10.1 fl 09/27/17 06:16 Neutrophils % 80.8 % (40.0-80.0) H 09/27/17 06:16 Lymphocytes % 11.9 % (20.0-50.0) L 09/27/17 06:16 Monocytes % 6.1 % (2.0-10.0) 09/27/17 06:16 Eosinophils % 1.1 % (0.0-5.0) 09/27/17 06:16 Basophils % 0.1 % (0.0-2.0) 09/27/17 06:16 Sodium 142 mEq/L (136-145) 09/28/17 05:30 Potassium 4.1 mEq/L (3.5-5.1) 09/28/17 05:30 Chloride 110 mEq/L (98-107) H 09/28/17 05:30 Carbon Dioxide 25.6 mEq/L (21.0-31.0) 09/28/17 05:30 Anion Gap 10.5 (7.0-16.0) 09/28/17 05:30 BUN 17 mg/dL (7-25) 09/28/17 05:30 Creatinine 0.7 mg/dL (0.6-1.2) 09/28/17 05:30 Est GFR ( Amer) > 60.0 ml/min (>90) 09/28/17 05:30 Est GFR (Non-Af Amer) > 60.0 ml/min 09/28/17 05:30 BUN/Creatinine Ratio 24.3 09/28/17 05:30 Glucose 133 mg/dL (70-105) H 09/28/17 05:30 POC Glucose 130 MG/DL (70 - 105) H 09/27/17 14:51 Hemoglobin A1c % 5.2 % (4.0-6.0) 09/23/17 05:15 Calcium 9.4 mg/dL (8.6-10.3) 09/28/17 05:30 Phosphorus 3.1 mg/dL (2.5-5.0) 09/28/17 05:30 Magnesium 2.1 mg/dL (1.9-2.7) 09/28/17 05:30 Total Bilirubin 0.7 mg/dL (0.3-1.0) 09/26/17 06:00 Direct Bilirubin 0.17 mg/dL (0.0-0.2) 09/26/17 06:00 AST 24 U/L (13-39) 09/26/17 06:00 ALT 43 U/L (7-52) 09/26/17 06:00 Alkaline Phosphatase 58 U/L (34-104) 09/26/17 06:00 Ammonia 43 umol/L (16-53) 09/01/17 05:40 B-Natriuretic Peptide 86.7 pg/mL (5.0-100.0) 08/31/17 05:00 Total Protein 5.9 gm/dL (6.0-8.3) L 09/26/17 06:00 Albumin 3.3 gm/dL (3.7-5.3) L 09/26/17 06:00 Globulin 2.6 gm/dL 09/26/17 06:00 Albumin/Globulin Ratio 1.3 (1.0-1.8) 09/26/17 06:00 Prealbumin 21 mg/dL (10-36) 09/23/17 10:16 Triglycerides 80 mg/dL (<150) 09/23/17 08:30 Cholesterol 147 mg/dL (<200) 09/23/17 08:30 Vitamin B12 790 pg/mL (232-1245) 09/01/17 05:40 Folic Acid 4.8 ng/mL (>3.0) 09/01/17 05:40 TSH 1.59 uIU/ml (0.34-5.60) 09/23/17 10:16 Urine Source [place] 08/29/17 13:45 Urine Color YELLOW 08/29/17 13:45 Urine Clarity SLIGHTLY [place] (CLEAR) 08/29/17 13:45 Urine pH 7.5 (4.6 - 8.0) 08/29/17 13:45 Ur Specific [place] 1.010 (1.005-1.030) 08/29/17 13:45 Urine Protein NEGATIVE mg/dL (NEGATIVE) 08/29/17 13:45 Urine Glucose (UA) NEGATIVE mg/dL (NEGATIVE) 08/29/17 13:45 Urine Ketones NEGATIVE mg/dL (NEGATIVE) 08/29/17 13:45 Urine Blood TRACE (NEGATIVE) 08/29/17 13:45 Urine Nitrate NEGATIVE (NEGATIVE) 08/29/17 13:45 Urine Bilirubin NEGATIVE (NEGATIVE) 08/29/17 13:45 Urine Urobilinogen 0.2 E.U./dL (0.2 - 1.0) 08/29/17 13:45 Ur Leukocyte Esterase NEGATIVE (NEGATIVE) 08/29/17 13:45 Urine RBC 0-2 /hpf (0-5) 08/29/17 13:45 Urine WBC 0-2 /hpf (0-5) 08/29/17 13:45 Ur Epithelial Cells OCCASIONAL /lpf (FEW) 08/29/17 13:45 Urine Bacteria FEW /hpf (NONE SEEN) 08/29/17 13:45 Vancomycin Trough < 2.0 ug/mL (5-10) L 09/17/17 21:34 Hepatitis A IgM Ab Negative (Negative) 09/24/17 05:55 Hep Bs Antigen Negative (Negative) 09/24/17 05:55 Hep B Core IgM Ab Negative (Negative) 09/24/17 05:55 Hepatitis C Antibody 0.1 s/co ratio (0.0-0.9) 09/24/17 05:55 HIV 1&2 Antibody Screen NEGATIVE (NEG) 09/24/17 05:55 - Physical Exam Vitals and I&O: Vital Signs Temp 98.2 F 09/28/17 11:56 Pulse 92 09/28/17 11:56 Resp 17 09/28/17 11:56 BP 132/70 09/28/17 11:56 Pulse Ox 99 09/28/17 11:56 Intake & Output 09/27/17 09/28/17 09/28/17 18:59 06:59 18:59 Intake Total 3564.667 Output Total 1100 2000 Balance 2464.667 -2000 Weight (lbs) 44.906 kg 44.906 kg Intake: Intake, IV Amount 2684.667 Dextrose 5% 1,000 ml @ 50 816.667 mls/hr IV .Q20H [facility] Rx#: [id number] Dextrose 70% 1,420 ml 1868 Amino Acids 8.5% 500 ml @ 80 mls/hr IV .Q24H [facility] Rx#:[id number] TPN/PPN 880 Output: Urine 1100 2000 Other: # Bowel Movements 1 0 Weight Source Bedscale Bedscale Active Medications: Current Medications Acetaminophen (Tylenol) 650 mg GT Q4HR PRN PRN Reason: Pain or Fever >101 Stop: 10/23/17 19:40 Albuterol Sulfate (Albuterol 2.5mg/3ml Neb Ud) 2.5 mg HHN Q4HRT PRN PRN Reason: Shortness of Breath Stop: 10/23/17 19:40 Artificial Tears (Artificial Tears Ophth Soln) 1 drop EACH EYE Q2H PRN PRN Reason: Dry Eye Stop: 11/10/17 10:46 Bisacodyl (Dulcolax 10 Mg Supp) 10 mg RC DAILY PRN PRN Reason: Constipation Stop: 10/23/17 19:40 Dextrose (D50w) 50 ml IVP PRN PRN; Protocol PRN Reason: hypoglycemia protocol Stop: 11/04/17 12:57 Last Admin: 09/24/17 12:10 Dose: 50 ml Docusate Sodium (Colace) 100 mg GT DAILY PRN PRN Reason: CONSTIPATION Stop: 10/24/17 08:59 Last Admin: 08/27/17 17:38 Dose: 100 mg Dextrose (D5w) 1,000 mls @ 50 mls/hr IV .Q20H [facility] Stop: 11/21/17 17:29 Last Admin: 09/27/17 16:31 Dose: 50 mls/hr Dextrose/ Amino Acids/ (Electrolytes) 1,920 mls @ 80 mls/hr IV .Q24H [facility] Stop: 10/24/17 15:59 Last Admin: 09/27/17 15:24 Dose: 80 mls/hr Insulin Aspart (Novolog Insulin Sliding Scale) 0 units SUBQ Q4H [facility]; Protocol Stop: 11/21/17 19:59 Last Admin: 09/28/17 11:49 Dose: Not Given Ipratropium [place] (Atrovent Neb 0.5mg/2.5ml) 0.5 mg HHN Q4HRT PRN PRN Reason: Shortness of Breath or Wheeze Stop: 10/23/17 19:40 Lactic Acid (Lac-Hydrin Cream) 1 appl TP DAILY [facility] Stop: 10/24/17 08:59 Last Admin: 09/28/17 09:05 Dose: Not Given Levothyroxine Sodium (Synthroid) 0.05 mg IVP QDAC [facility] Stop: 11/23/17 07:29 Last Admin: 09/28/17 08:05 Dose: Not Given Levothyroxine Sodium (Synthroid) 0.1 mg PO QDAC [facility] Stop: 11/24/17 07:29 Last Admin: 09/28/17 08:05 Dose: Not Given Lorazepam (Ativan) 1 mg IV Q4H PRN; Protocol PRN Reason: Agitation Stop: 11/19/17 07:48 Last Admin: 09/20/17 17:05 Dose: 1 mg Magnesium Hydroxide (Milk Of Magnesia) 30 ml PO HS PRN PRN Reason: Constipation Stop: 10/23/17 19:40 Megestrol Acetate (Megace) 400 mg PO BID [facility] Stop: 10/24/17 08:59 Last Admin: 09/28/17 09:05 Dose: Not Given Midodrine (Proamatine) 2.5 mg PO TID [facility] Stop: 11/20/17 20:59 Last Admin: 09/28/17 13:23 Dose: Not Given Mirtazapine (Remeron) 15 mg PO HS [facility]; Protocol Stop: 10/30/17 20:59 Last Admin: 09/27/17 21:07 Dose: Not Given Miscellaneous (Vte Chemical Prophylaxis Screen/ Admission) 1 ea MC PRN PRN PRN Reason: PROTOCOL Stop: 10/24/17 09:26 Miscellaneous (Probiotic Screen) 1 ea MC PRN PRN PRN Reason: PROTOCOL Stop: 10/29/17 08:59 Miscellaneous (Ppn Per Pharmacy) 1 ea MC PRN PRN PRN Reason: PPN PER RX Stop: 11/11/17 14:29 Olanzapine (Zyprexa) 5 mg PO HS [facility]; Protocol Stop: 10/23/17 20:59 Last Admin: 09/27/17 21:07 Dose: Not Given Sodium Phosphate (Fleet Enema) 135 ml RC DAILY PRN PRN Reason: Constipation Stop: 10/23/17 19:40 Theophylline (Elijah-Dur) 200 mg PO BID [facility] Stop: 11/23/17 16:59 Last Admin: 09/28/17 09:05 Dose: Not Given General: demented, disheveled, thin, cachectic HEENT: NC/AT, PERRLA Neck: Supple, No JVD, No LAD Lungs: chest deformity present Cardiovascular: RRR, Normal S1, Normal S2, with murmur Abdomen: soft, non-tender, thin, positive bowel sound Extremities: excoriation, contracture, deformity Neurological: disorganized, muscle weakness, unable to follow command - Procedures Procedures: Procedures Procedure Code Date RECREATIONAL THERAPY 93.81 11/09/10 Internal Medicine Assmt/Plan - Assessment Assessment: ASSESSMENT AND PLAN: Failure to thrive, poor p.o. intake, severe protein-caloric malnutrition, diabetes, congestive heart failure, acute on chronic renal insufficiency, schizoaffective disorder, hypertension, hypokalemia, dementia, legally blind, leukocytosis, and bedbound. - Plan Plan: plan paperworks to be submitted to court fileed up several times We will continue the patient on oxygen and bronchodilator treatments. We will continue with __ivf__. We will perform calorie count. If intake is poor, he may consider alternative means of feeding. We will try to get all the conservative as far as the advance directive, continue with current care with followup consult and recommendations. Psych is following. Nutritional Asmnt/Malnutr-PDOC - Dietary Evaluation Malnutrition Findings (Please click <Entered> for more info): Nutritional Asmnt/Malnutrition Start: 08/25/17 17: 28 Text: Status: Complete Freq: Protocol: Document 08/25/17 17:28 REDD (Rec: 08/25/17 17:32 REDD [email or web address]) Nutritional Asmnt/Malnutrition Patient General Information Nutritional Screening High Risk Consult Diagnosis dehydration, FTT Pertinent Medical Hx/Surgical Hx DM, CHF, kidney failure, schizophrenia, HTN, dementia, legally blind, noncompliance Subjective Information Consult received for poor oral intake. Pt seen resting in bed at time of visit. Per nurse note, pt refused breakfast and lunch today. Pt on calorie count noted. Current Diet Order/ Nutrition Support pureed, nectar thin liquid Pertinent Medications D5-0.45ns, colace, novolog, megace Pertinent Labs 08/25 K 3.0, glucose 106 Nutritional Hx/Data Height 1.68 m Height (Calculated Centimeters) 167.6 Current Weight (lbs) 50.349 kg Weight (Calculated Kilograms) 50.3 Weight (Calculated Grams) 88509.8 [place] Body Weight 130 Body Mass Index (BMI) 17.9 Weight Status Underweight GI Symptoms GI Symptoms None Last BM none Skin Integrity/Comment: redness Estimated Nutritional Goals BEE in Kcals: Using Current wt Calories/Kcals/Kg 30-35 Kcals Calculated 3680-2544 Protein: Using Current wt Protein g/k.2 Protein Calculated 60 Fluid: ml 1500-1750ml (1ml/kcal) Nutritional Problem 1. Problem Problem inadequate food intake Etiology pt refusing to eat Signs/Symptoms: PO intake <25% since admission Malnutrition Alert Muscle Mass (Non-Severe) Mild Depletion Is there a minimum of two criteria No selected? Query Text:Check all the applicable criteria. A minimum of two criteria are recommended for diagnosis of either severe or non-severe malnutrition. Malnutrition Related to Morbid Obesity Malnutrition related to morbid obesity No Intervention/Recommendation Comments 1. Continue with current diet as ordered. Assist pt with meals and encourage oral intake. 2. Monitor PO intake, wt, labs and skin integrity 3. F/U as high risk in 2-3 days, 08/27-08/28 Expected Outcomes/Goals Expected Outcomes/Goals 1. PO intake to meet at least 75% of nutritional needs. 2. Wt stability, skin to remain intact, labs to approach WNL.
[2017-09-28] MEDS: TPN 8.5%-70% CUSTOM IV SCH (15:25)
[2017-09-28] MEDS: Dextrose 5% 1,000 ML IV SCH (15:26)
[2017-09-29] MEDS: INSULIN ASPART SLIDING SCALE 100 UNITS/ML UNIT SUBQ SCH ×4 (00:32→13:39)
[2017-09-29 05:49] LABS: BUN - UREA NITROGEN 16 mg/dL (7-25); CALCIUM SERUM 9.3 mg/dL (8.6-10.3); CHLORIDE 107 mEq/L (98-107); CREATININE - SERUM 0.8 mg/dL (0.6-1.2); GFR AFRICAN-AMERICAN > 60.0 ml/min (>90); GFR NON AFRICAN-AMERICAN > 60.0 ml/min; GLUCOSE 103 mg/dL (70-105); MAGNESIUM 2.1 mg/dL (1.9-2.7); PHOSPHOROUS 3.3 mg/dL (2.5-5.0); SODIUM SERUM 140 mEq/L (136-145)
[2017-09-29] MEDS: Levothyroxine 0.1 Mg Tab PO SCH (08:30)
[2017-09-29] MEDS: Theophylline 100 mg ER Tab PO SCH ×2 (08:30→16:20)
[2017-09-29] MEDS: Ammonium Lactate Cream 140 gm Tube TP SCH (10:02)
--- NOTE | 2017-09-29 12:01 | Internal Medicine Prog Note ---
Internal Medicine Subjective - Subjective Service Date: 09/29/17 Patient is:: awake, non-interactive, in bed, confused, other Patient Complaints of:: congestion Per staff patient has:: poor appetite, poor oral intake Internal Medicine Objective - Results Result Diagrams: 09/27/17 06:16 09/29/17 04:30 Recent Labs: Laboratory Last Values WBC 8.3 Th/cmm (4.8-10.8) 09/27/17 06:16 RBC 3.10 Mil/cmm (3.80-5.20) L 09/27/17 06:16 Hgb 9.7 gm/dL (12-16) L 09/27/17 06:16 Hct 28.4 % (41.0-60) L 09/27/17 06:16 MCV 91.4 fl (81-100) 09/27/17 06:16 MCH 31.2 pg (27.0-31.0) H 09/27/17 06:16 MCHC Differential 34.1 pg (28.0-36.0) 09/27/17 06:16 RDW 16.5 % (11.5-20.0) 09/27/17 06:16 Plt Count 342 Th/cmm (150-400) 09/27/17 06:16 MPV 10.1 fl 09/27/17 06:16 Neutrophils % 80.8 % (40.0-80.0) H 09/27/17 06:16 Lymphocytes % 11.9 % (20.0-50.0) L 09/27/17 06:16 Monocytes % 6.1 % (2.0-10.0) 09/27/17 06:16 Eosinophils % 1.1 % (0.0-5.0) 09/27/17 06:16 Basophils % 0.1 % (0.0-2.0) 09/27/17 06:16 Sodium 140 mEq/L (136-145) 09/29/17 04:30 Potassium 4.0 mEq/L (3.5-5.1) 09/29/17 04:30 Chloride 107 mEq/L (98-107) 09/29/17 04:30 Carbon Dioxide 26.0 mEq/L (21.0-31.0) 09/29/17 04:30 Anion Gap 11.0 (7.0-16.0) 09/29/17 04:30 BUN 16 mg/dL (7-25) 09/29/17 04:30 Creatinine 0.8 mg/dL (0.6-1.2) 09/29/17 04:30 Est GFR ( Amer) > 60.0 ml/min (>90) 09/29/17 04:30 Est GFR (Non-Af Amer) > 60.0 ml/min 09/29/17 04:30 BUN/Creatinine Ratio 20.0 09/29/17 04:30 Glucose 103 mg/dL (70-105) 09/29/17 04:30 POC Glucose 113 MG/DL (70 - 105) H 09/29/17 08:17 Hemoglobin A1c % 5.2 % (4.0-6.0) 09/23/17 05:15 Calcium 9.3 mg/dL (8.6-10.3) 09/29/17 04:30 Phosphorus 3.3 mg/dL (2.5-5.0) 09/29/17 04:30 Magnesium 2.1 mg/dL (1.9-2.7) 09/29/17 04:30 Total Bilirubin 0.7 mg/dL (0.3-1.0) 09/26/17 06:00 Direct Bilirubin 0.17 mg/dL (0.0-0.2) 09/26/17 06:00 AST 24 U/L (13-39) 09/26/17 06:00 ALT 43 U/L (7-52) 09/26/17 06:00 Alkaline Phosphatase 58 U/L (34-104) 09/26/17 06:00 Ammonia 43 umol/L (16-53) 09/01/17 05:40 B-Natriuretic Peptide 86.7 pg/mL (5.0-100.0) 08/31/17 05:00 Total Protein 5.9 gm/dL (6.0-8.3) L 09/26/17 06:00 Albumin 3.3 gm/dL (3.7-5.3) L 09/26/17 06:00 Globulin 2.6 gm/dL 09/26/17 06:00 Albumin/Globulin Ratio 1.3 (1.0-1.8) 09/26/17 06:00 Prealbumin 21 mg/dL (10-36) 09/23/17 10:16 Triglycerides 80 mg/dL (<150) 09/23/17 08:30 Cholesterol 147 mg/dL (<200) 09/23/17 08:30 Vitamin B12 790 pg/mL (232-1245) 09/01/17 05:40 Folic Acid 4.8 ng/mL (>3.0) 09/01/17 05:40 TSH 1.59 uIU/ml (0.34-5.60) 09/23/17 10:16 Urine Source [place] 08/29/17 13:45 Urine Color YELLOW 08/29/17 13:45 Urine Clarity SLIGHTLY HAZY (CLEAR) 08/29/17 13:45 Urine pH 7.5 (4.6 - 8.0) 08/29/17 13:45 Ur Specific [place] 1.010 (1.005-1.030) 08/29/17 13:45 Urine Protein NEGATIVE mg/dL (NEGATIVE) 08/29/17 13:45 Urine Glucose (UA) NEGATIVE mg/dL (NEGATIVE) 08/29/17 13:45 Urine Ketones NEGATIVE mg/dL (NEGATIVE) 08/29/17 13:45 Urine Blood TRACE (NEGATIVE) 08/29/17 13:45 Urine Nitrate NEGATIVE (NEGATIVE) 08/29/17 13:45 Urine Bilirubin NEGATIVE (NEGATIVE) 08/29/17 13:45 Urine Urobilinogen 0.2 E.U./dL (0.2 - 1.0) 08/29/17 13:45 Ur Leukocyte Esterase NEGATIVE (NEGATIVE) 08/29/17 13:45 Urine RBC 0-2 /hpf (0-5) 08/29/17 13:45 Urine WBC 0-2 /hpf (0-5) 08/29/17 13:45 Ur Epithelial Cells OCCASIONAL /lpf (FEW) 08/29/17 13:45 Urine Bacteria FEW /hpf (NONE SEEN) 08/29/17 13:45 Vancomycin Trough < 2.0 ug/mL (5-10) L 09/17/17 21:34 Hepatitis A IgM Ab Negative (Negative) 09/24/17 05:55 Hep Bs Antigen Negative (Negative) 09/24/17 05:55 Hep B Core IgM Ab Negative (Negative) 09/24/17 05:55 Hepatitis C Antibody 0.1 s/co ratio (0.0-0.9) 09/24/17 05:55 HIV 1&2 Antibody Screen NEGATIVE (NEG) 09/24/17 05:55 - Physical Exam Vitals and I&O: Vital Signs Temp 97.1 F 09/29/17 08:53 Pulse 65 09/29/17 08:53 Resp 18 09/29/17 08:53 BP 113/69 09/29/17 08:53 Pulse Ox 93 09/29/17 08:53 Intake & Output 09/28/17 09/29/17 09/29/17 18:59 06:59 18:59 Intake Total 3880 Output Total 850 800 Balance 3030 -800 Weight (lbs) 99 lb 102 lb 6.4 oz Intake: Intake, IV Amount 2920 Dextrose 5% 1,000 ml @ 50 1000 mls/hr IV .Q20H [facility] Rx#: [id number] Dextrose 70% 1,420 ml 1920 Amino Acids 8.5% 500 ml @ 80 mls/hr IV .Q24H [facility] Rx#:[id number] Oral 0 TPN/PPN 960 Output: Urine 850 800 Other: # Bowel Movements 0 Weight Source Bedscale Bedscale Active Medications: Current Medications Acetaminophen (Tylenol) 650 mg GT Q4HR PRN PRN Reason: Pain or Fever >101 Stop: 10/23/17 19:40 Albuterol Sulfate (Albuterol 2.5mg/3ml Neb Ud) 2.5 mg HHN Q4HRT PRN PRN Reason: Shortness of Breath Stop: 10/23/17 19:40 Artificial Tears (Artificial Tears Ophth Soln) 1 drop EACH EYE Q2H PRN PRN Reason: Dry Eye Stop: 11/10/17 10:46 Bisacodyl (Dulcolax 10 Mg Supp) 10 mg RC DAILY PRN PRN Reason: Constipation Stop: 10/23/17 19:40 Dextrose (D50w) 50 ml IVP PRN PRN; Protocol PRN Reason: hypoglycemia protocol Stop: 11/04/17 12:57 Last Admin: 09/24/17 12:10 Dose: 50 ml Docusate Sodium (Colace) 100 mg GT DAILY PRN PRN Reason: CONSTIPATION Stop: 10/24/17 08:59 Last Admin: 08/27/17 17:38 Dose: 100 mg Dextrose (D5w) 1,000 mls @ 50 mls/hr IV .Q20H FOZIA Stop: 11/21/17 17:29 Last Admin: 09/28/17 15:26 Dose: 50 mls/hr Dextrose/ Amino Acids/ (Electrolytes) 1,920 mls @ 80 mls/hr IV .Q24H [facility] Stop: 10/24/17 15:59 Last Admin: 09/28/17 15:25 Dose: 80 mls/hr Insulin Aspart (Novolog Insulin Sliding Scale) 0 units SUBQ Q4H FOZIA; Protocol Stop: 11/21/17 19:59 Last Admin: 09/29/17 04:13 Dose: Not Given Ipratropium [place] (Atrovent Neb 0.5mg/2.5ml) 0.5 mg HHN Q4HRT PRN PRN Reason: Shortness of Breath or Wheeze Stop: 10/23/17 19:40 Lactic Acid (Lac-Hydrin Cream) 1 appl TP DAILY [facility] Stop: 10/24/17 08:59 Last Admin: 09/29/17 10:02 Dose: 1 appl Levothyroxine Sodium (Synthroid) 0.05 mg IVP QDAC FOZIA Stop: 11/23/17 07:29 Last Admin: 09/29/17 08:29 Dose: 0.05 mg Lorazepam (Ativan) 1 mg IV Q4H PRN; Protocol PRN Reason: Agitation Stop: 11/19/17 07:48 Last Admin: 09/20/17 17:05 Dose: 1 mg Magnesium Hydroxide (Milk Of Magnesia) 30 ml PO HS PRN PRN Reason: Constipation Stop: 10/23/17 19:40 Megestrol Acetate (Megace) 400 mg PO BID [facility] Stop: 10/24/17 08:59 Last Admin: 09/29/17 08:37 Dose: Not Given Midodrine (Proamatine) 2.5 mg PO TID [facility] Stop: 11/20/17 20:59 Last Admin: 09/29/17 08:38 Dose: Not Given Mirtazapine (Remeron) 15 mg PO HS [facility]ZIA; Protocol Stop: 10/30/17 20:59 Last Admin: 09/28/17 22:16 Dose: Not Given Miscellaneous (Vte Chemical Prophylaxis Screen/ Admission) 1 ea MC PRN PRN PRN Reason: PROTOCOL Stop: 10/24/17 09:26 Miscellaneous (Probiotic Screen) 1 ea PRN PRN PRN Reason: PROTOCOL Stop: 10/29/17 08:59 Miscellaneous (Ppn Per Pharmacy) 1 ea MC PRN PRN PRN Reason: PPN PER RX Stop: 11/11/17 14:29 Olanzapine (Zyprexa) 5 mg PO HS FOZIA; Protocol Stop: 10/23/17 20:59 Last Admin: 09/28/17 22:16 Dose: Not Given Sodium Phosphate (Fleet Enema) 135 ml RC DAILY PRN PRN Reason: Constipation Stop: 10/23/17 19:40 Theophylline (Elijah-Dur) 200 mg PO BID [facility] Stop: 11/23/17 16:59 Last Admin: 09/29/17 08:30 Dose: 200 mg General: demented, disheveled, thin, cachectic HEENT: NC/AT, PERRLA Neck: Supple, No JVD, No LAD Lungs: chest deformity present Cardiovascular: RRR, Normal S1, Normal S2, with murmur Abdomen: soft, non-tender, thin, positive bowel sound Extremities: excoriation, contracture, deformity Neurological: disorganized, muscle weakness, unable to follow command - Procedures Procedures: Procedures Procedure Code Date RECREATIONAL THERAPY 93.81 11/09/10 Internal Medicine Assmt/Plan - Assessment Assessment: Failure to thrive poor p.o. intake severe protein-caloric malnutrition diabetes congestive heart failure acute on chronic renal insufficiency schizoaffective disorder hypertension hypokalemia dementia legally blind leukocytosis bedbound. noncompliant - Plan Plan: continue with PPn for nutritional support ivf for hydration monitor electrolytes need PEG PLACEMENT, awaiting for conservator. continue current plan of care Nutritional Asmnt/Malnutr-PDOC - Dietary Evaluation Malnutrition Findings (Please click <Entered> for more info): Nutritional Asmnt/Malnutrition Start: 08/25/17 17: 28 Text: Status: Complete Freq: Protocol: Document 08/25/17 17:28 [email or web address] (Rec: 08/25/17 17:32 [email or web address]) Nutritional Asmnt/Malnutrition Patient General Information Nutritional Screening High Risk Consult Diagnosis dehydration, FTT Pertinent Medical Hx/Surgical Hx DM, CHF, kidney failure, schizophrenia, HTN, dementia, legally blind, noncompliance Subjective Information Consult received for poor oral intake. Pt seen resting in bed at time of visit. Per nurse note, pt refused breakfast and lunch today. Pt on calorie count noted. Current Diet Order/ Nutrition Support pureed, nectar thin liquid Pertinent Medications D5-0.45ns, colace, novolog, megace Pertinent Labs 08/25 K 3.0, glucose 106 Nutritional Hx/Data Height 5 ft 6 in Height (Calculated Centimeters) 167.6 Current Weight (lbs) 111 lb Weight (Calculated Kilograms) 50.3 Weight (Calculated Grams) 83661.8 [place] Body Weight 130 Body Mass Index (BMI) 17.9 Weight Status Underweight GI Symptoms GI Symptoms None Last BM none Skin Integrity/Comment: redness Estimated Nutritional Goals BEE in Kcals: Using Current wt Calories/Kcals/Kg 30-35 Kcals Calculated 7179-4862 Protein: Using Current wt Protein g/k.2 Protein Calculated 60 Fluid: ml 1500-1750ml (1ml/kcal) Nutritional Problem 1. Problem Problem inadequate food intake Etiology pt refusing to eat Signs/Symptoms: PO intake <25% since admission Malnutrition Alert Muscle Mass (Non-Severe) Mild Depletion Is there a minimum of two criteria No selected? Query Text:Check all the applicable criteria. A minimum of two criteria are recommended for diagnosis of either severe or non-severe malnutrition. Malnutrition Related to Morbid Obesity Malnutrition related to morbid obesity No Intervention/Recommendation Comments 1. Continue with current diet as ordered. Assist pt with meals and encourage oral intake. 2. Monitor PO intake, wt, labs and skin integrity 3. F/U as high risk in 2-3 days, 08/27-08/28 Expected Outcomes/Goals Expected Outcomes/Goals 1. PO intake to meet at least 75% of nutritional needs. 2. Wt stability, skin to remain intact, labs to approach WNL.
[2017-09-29] MEDS: Dextrose 5% 1,000 ML IV SCH (15:44)
[2017-09-29] MEDS: TPN 8.5%-70% CUSTOM IV SCH (15:45)
[2017-09-30] MEDS: INSULIN ASPART SLIDING SCALE 100 UNITS/ML UNIT SUBQ SCH ×4 (00:28→17:48)
[2017-09-30 05:06] LABS: % BASOPHILS 1.1 % (0.0-2.0); % EOSINOPHILS 0.9 % (0.0-5.0); % MONOCYTES 7.9 % (2.0-10.0); % NEUTROPHILS 77.1 % (40.0-80.0); BASOPHILE ABSOLUTE 0.1 Th/cumm (0-0.2); EOSINOPHILE ABSOLUTE 0.1 Th/cmm (0.1-0.4); HEMATOCRIT 28.7 % (41.0-60); HEMOGLOBIN 9.8 gm/dL (12-16); LYMPHOCYTE ABSOLUTE 1.2 Th/cmm (1.5-3.0); MEAN CELL VOLUME 91.5 fl (81-100); MEAN CORPUSCULAR HEMOGLOBIN 31.2 pg (27.0-31.0); MEAN CORPUSCULAR HGB CONC 34.1 pg (28.0-36.0); MEAN PLATELET VOLUME 10.8 fl; MONOCYTE ABSOLUTE 0.7 Th/cmm (0.3-1.0); NEUTROPHILE ABSOLUTE 7.3 Th/cmm (1.8-8.0); PLATELET COUNT 318 Th/cmm (150-400); RED BLOOD COUNT 3.14 Mil/cmm (3.80-5.20); WHITE BLOOD COUNT 9.4 Th/cmm (4.8-10.8)
[2017-09-30 05:47] LABS: ANION GAP 11.6 (7.0-16.0); BUN - UREA NITROGEN 17 mg/dL (7-25); CALCIUM SERUM 9.6 mg/dL (8.6-10.3); CARBON DIOXIDE 26.3 mEq/L (21.0-31.0); CHLORIDE 107 mEq/L (98-107); CREATININE - SERUM 0.8 mg/dL (0.6-1.2); GFR AFRICAN-AMERICAN > 60.0 ml/min (>90); GFR NON AFRICAN-AMERICAN > 60.0 ml/min; GLUCOSE 107 mg/dL (70-105); PHOSPHOROUS 3.9 mg/dL (2.5-5.0); POTASSIUM SERUM 3.9 mEq/L (3.5-5.1); SODIUM SERUM 141 mEq/L (136-145)
[2017-09-30] MEDS: Dextrose 5% 1,000 ML IV SCH (06:27)
[2017-09-30] MEDS: Theophylline 100 mg ER Tab PO SCH ×2 (09:11→16:23)
[2017-09-30] MEDS: Ammonium Lactate Cream 140 gm Tube TP SCH (09:14)
--- NOTE | 2017-09-30 14:23 | Internal Medicine Prog Note ---
Internal Medicine Subjective - Subjective Service Date: 09/30/17 Patient is:: awake, non-interactive, in bed, confused, other Patient Complaints of:: congestion Per staff patient has:: poor appetite, poor oral intake Internal Medicine Objective - Results Result Diagrams: 09/30/17 04:20 09/30/17 04:20 Recent Labs: Laboratory Last Values WBC 9.4 Th/cmm (4.8-10.8) 09/30/17 04:20 RBC 3.14 Mil/cmm (3.80-5.20) L 09/30/17 04:20 Hgb 9.8 gm/dL (12-16) L 09/30/17 04:20 Hct 28.7 % (41.0-60) L 09/30/17 04:20 MCV 91.5 fl (81-100) 09/30/17 04:20 MCH 31.2 pg (27.0-31.0) H 09/30/17 04:20 MCHC Differential 34.1 pg (28.0-36.0) 09/30/17 04:20 RDW 16.0 % (11.5-20.0) 09/30/17 04:20 Plt Count 318 Th/cmm (150-400) 09/30/17 04:20 MPV 10.8 fl 09/30/17 04:20 Neutrophils % 77.1 % (40.0-80.0) 09/30/17 04:20 Lymphocytes % 13.0 % (20.0-50.0) L 09/30/17 04:20 Monocytes % 7.9 % (2.0-10.0) 09/30/17 04:20 Eosinophils % 0.9 % (0.0-5.0) 09/30/17 04:20 Basophils % 1.1 % (0.0-2.0) 09/30/17 04:20 Sodium 141 mEq/L (136-145) 09/30/17 04:20 Potassium 3.9 mEq/L (3.5-5.1) 09/30/17 04:20 Chloride 107 mEq/L (98-107) 09/30/17 04:20 Carbon Dioxide 26.3 mEq/L (21.0-31.0) 09/30/17 04:20 Anion Gap 11.6 (7.0-16.0) 09/30/17 04:20 BUN 17 mg/dL (7-25) 09/30/17 04:20 Creatinine 0.8 mg/dL (0.6-1.2) 09/30/17 04:20 Est GFR ( Amer) > 60.0 ml/min (>90) 09/30/17 04:20 Est GFR (Non-Af Amer) > 60.0 ml/min 09/30/17 04:20 BUN/Creatinine Ratio 21.3 09/30/17 04:20 Glucose 107 mg/dL (70-105) H 09/30/17 04:20 POC Glucose 167 MG/DL (70 - 105) H 09/30/17 13:47 Hemoglobin A1c % 5.2 % (4.0-6.0) 09/23/17 05:15 Calcium 9.6 mg/dL (8.6-10.3) 09/30/17 04:20 Phosphorus 3.9 mg/dL (2.5-5.0) 09/30/17 04:20 Magnesium 2.0 mg/dL (1.9-2.7) 09/30/17 04:20 Total Bilirubin 0.7 mg/dL (0.3-1.0) 09/26/17 06:00 Direct Bilirubin 0.17 mg/dL (0.0-0.2) 09/26/17 06:00 AST 24 U/L (13-39) 09/26/17 06:00 ALT 43 U/L (7-52) 09/26/17 06:00 Alkaline Phosphatase 58 U/L (34-104) 09/26/17 06:00 Ammonia 43 umol/L (16-53) 09/01/17 05:40 B-Natriuretic Peptide 86.7 pg/mL (5.0-100.0) 08/31/17 05:00 Total Protein 5.9 gm/dL (6.0-8.3) L 09/26/17 06:00 Albumin 3.3 gm/dL (3.7-5.3) L 09/26/17 06:00 Globulin 2.6 gm/dL 09/26/17 06:00 Albumin/Globulin Ratio 1.3 (1.0-1.8) 09/26/17 06:00 Prealbumin 21 mg/dL (10-36) 09/23/17 10:16 Triglycerides 80 mg/dL (<150) 09/23/17 08:30 Cholesterol 147 mg/dL (<200) 09/23/17 08:30 Vitamin B12 790 pg/mL (232-1245) 09/01/17 05:40 Folic Acid 4.8 ng/mL (>3.0) 09/01/17 05:40 TSH 1.04 uIU/ml (0.34-5.60) 09/29/17 06:16 Urine Source [place] 08/29/17 13:45 Urine Color YELLOW 08/29/17 13:45 Urine Clarity SLIGHTLY HAZY (CLEAR) 08/29/17 13:45 Urine pH 7.5 (4.6 - 8.0) 08/29/17 13:45 Ur Specific [place] 1.010 (1.005-1.030) 08/29/17 13:45 Urine Protein NEGATIVE mg/dL (NEGATIVE) 08/29/17 13:45 Urine Glucose (UA) NEGATIVE mg/dL (NEGATIVE) 08/29/17 13:45 Urine Ketones NEGATIVE mg/dL (NEGATIVE) 08/29/17 13:45 Urine Blood TRACE (NEGATIVE) 08/29/17 13:45 Urine Nitrate NEGATIVE (NEGATIVE) 08/29/17 13:45 Urine Bilirubin NEGATIVE (NEGATIVE) 08/29/17 13:45 Urine Urobilinogen 0.2 E.U./dL (0.2 - 1.0) 08/29/17 13:45 Ur Leukocyte Esterase NEGATIVE (NEGATIVE) 08/29/17 13:45 Urine RBC 0-2 /hpf (0-5) 08/29/17 13:45 Urine WBC 0-2 /hpf (0-5) 08/29/17 13:45 Ur Epithelial Cells OCCASIONAL /lpf (FEW) 08/29/17 13:45 Urine Bacteria FEW /hpf (NONE SEEN) 08/29/17 13:45 Vancomycin Trough < 2.0 ug/mL (5-10) L 09/17/17 21:34 Hepatitis A IgM Ab Negative (Negative) 09/24/17 05:55 Hep Bs Antigen Negative (Negative) 09/24/17 05:55 Hep B Core IgM Ab Negative (Negative) 09/24/17 05:55 Hepatitis C Antibody 0.1 s/co ratio (0.0-0.9) 09/24/17 05:55 HIV 1&2 Antibody Screen NEGATIVE (NEG) 09/24/17 05:55 - Physical Exam Vitals and I&O: Vital Signs Temp 96.4 F 09/30/17 12:00 Pulse 60 09/30/17 12:00 Resp 17 09/30/17 12:00 BP 109/61 09/30/17 12:00 Pulse Ox 98 09/30/17 12:00 Intake & Output 09/29/17 09/30/17 09/30/17 18:59 06:59 18:59 Intake Total 3720 735.833 Output Total 1600 1200 Balance 2120 -464.167 Weight (lbs) 98 lb 9.6 oz 99 lb 14.4 oz Intake: Intake, IV Amount 2920 735.833 Dextrose 5% 1,000 ml @ 50 1000 735.833 mls/hr IV .Q20H [facility] Rx#: [id number] Dextrose 70% 1,420 ml 1920 Amino Acids 8.5% 500 ml @ 80 mls/hr IV .Q24H [facility] Rx#:[id number] TPN/PPN 800 Output: Urine 1600 1200 Other: # Bowel Movements 0 0 Weight Source Bedscale Bedscale Active Medications: Current Medications Acetaminophen (Tylenol) 650 mg GT Q4HR PRN PRN Reason: Pain or Fever >101 Stop: 10/23/17 19:40 Albuterol Sulfate (Albuterol 2.5mg/3ml Neb Ud) 2.5 mg HHN Q4HRT PRN PRN Reason: Shortness of Breath Stop: 10/23/17 19:40 Artificial Tears (Artificial Tears Ophth Soln) 1 drop EACH EYE Q2H PRN PRN Reason: Dry Eye Stop: 11/10/17 10:46 Bisacodyl (Dulcolax 10 Mg Supp) 10 mg RC DAILY PRN PRN Reason: Constipation Stop: 10/23/17 19:40 Dextrose (D50w) 50 ml IVP PRN PRN; Protocol PRN Reason: hypoglycemia protocol Stop: 11/04/17 12:57 Last Admin: 09/24/17 12:10 Dose: 50 ml Docusate Sodium (Colace) 100 mg GT DAILY PRN PRN Reason: CONSTIPATION Stop: 10/24/17 08:59 Last Admin: 08/27/17 17:38 Dose: 100 mg Dextrose (D5w) 1,000 mls @ 50 mls/hr IV .Q20H [facility] Stop: 11/21/17 17:29 Last Admin: 09/30/17 06:27 Dose: 50 mls/hr Dextrose/ Amino Acids/ (Electrolytes) 1,920 mls @ 80 mls/hr IV .Q24H [facility] Stop: 10/24/17 15:59 Last Admin: 09/29/17 15:45 Dose: 80 mls/hr Insulin Aspart (Novolog Insulin Sliding Scale) 0 units SUBQ Q6H [facility]ZIA; Protocol Stop: 11/28/17 17:59 Last Admin: 09/30/17 11:42 Dose: 8 units Ipratropium [place] (Atrovent Neb 0.5mg/2.5ml) 0.5 mg HHN Q4HRT PRN PRN Reason: Shortness of Breath or Wheeze Stop: 10/23/17 19:40 Lactic Acid (Lac-Hydrin Cream) 1 appl TP DAILY [facility] Stop: 10/24/17 08:59 Last Admin: 09/30/17 09:14 Dose: 1 appl Levothyroxine Sodium (Synthroid) 0.05 mg IVP QDAC [facility] Stop: 11/23/17 07:29 Last Admin: 09/30/17 07:30 Dose: 0.05 mg Lorazepam (Ativan) 1 mg IV Q4H PRN; Protocol PRN Reason: Agitation Stop: 11/19/17 07:48 Last Admin: 09/20/17 17:05 Dose: 1 mg Magnesium Hydroxide (Milk Of Magnesia) 30 ml PO HS PRN PRN Reason: Constipation Stop: 10/23/17 19:40 Megestrol Acetate (Megace) 400 mg PO BID [facility] Stop: 10/24/17 08:59 Last Admin: 09/30/17 09:11 Dose: Not Given Midodrine (Proamatine) 2.5 mg PO TID [facility] Stop: 11/20/17 20:59 Last Admin: 09/30/17 09:11 Dose: Not Given Mirtazapine (Remeron) 15 mg PO HS [facility]; Protocol Stop: 10/30/17 20:59 Last Admin: 09/29/17 21:08 Dose: Not Given Miscellaneous (Vte Chemical Prophylaxis Screen/ Admission) 1 ea MC PRN PRN PRN Reason: PROTOCOL Stop: 10/24/17 09:26 Miscellaneous (Probiotic Screen) 1 ea MC PRN PRN PRN Reason: PROTOCOL Stop: 10/29/17 08:59 Miscellaneous (Ppn Per Pharmacy) 1 ea MC PRN PRN PRN Reason: PPN PER RX Stop: 11/11/17 14:29 Olanzapine (Zyprexa) 5 mg PO HS [facility]; Protocol Stop: 10/23/17 20:59 Last Admin: 09/29/17 21:08 Dose: Not Given Sodium Phosphate (Fleet Enema) 135 ml RC DAILY PRN PRN Reason: Constipation Stop: 10/23/17 19:40 Theophylline (Elijah-Dur) 200 mg PO BID [facility] Stop: 11/23/17 16:59 Last Admin: 09/30/17 09:11 Dose: Not Given General: demented, disheveled, thin, cachectic HEENT: NC/AT, PERRLA Neck: Supple, No JVD, No LAD Lungs: chest deformity present Cardiovascular: RRR, Normal S1, Normal S2, with murmur Abdomen: soft, non-tender, thin, positive bowel sound Extremities: excoriation, contracture, deformity Neurological: disorganized, muscle weakness, unable to follow command - Procedures Procedures: Procedures Procedure Code Date RECREATIONAL THERAPY 93.81 11/09/10 Internal Medicine Assmt/Plan - Assessment Assessment: Failure to thrive poor p.o. intake severe protein-caloric malnutrition diabetes congestive heart failure acute on chronic renal insufficiency schizoaffective disorder hypertension hypokalemia dementia legally blind leukocytosis bedbound. noncompliant - Plan Plan: continue with PPn for nutritional support ivf for hydration monitor electrolytes need PEG PLACEMENT, awaiting for conservator, they will get back to us before Friday continue current plan of care Nutritional Asmnt/Malnutr-PDOC - Dietary Evaluation Malnutrition Findings (Please click <Entered> for more info): Nutritional Asmnt/Malnutrition Start: 08/25/17 17: 28 Text: Status: Complete Freq: Protocol: Document 08/25/17 17:28 [email or web address] (Rec: 08/25/17 17:32 [email or web address]) Nutritional Asmnt/Malnutrition Patient General Information Nutritional Screening High Risk Consult Diagnosis dehydration, FTT Pertinent Medical Hx/Surgical Hx DM, CHF, kidney failure, schizophrenia, HTN, dementia, legally blind, noncompliance Subjective Information Consult received for poor oral intake. Pt seen resting in bed at time of visit. Per nurse note, pt refused breakfast and lunch today. Pt on calorie count noted. Current Diet Order/ Nutrition Support pureed, nectar thin liquid Pertinent Medications D5-0.45ns, colace, novolog, megace Pertinent Labs 7/ K 3.0, glucose 106 Nutritional Hx/Data Height 5 ft 6 in Height (Calculated Centimeters) 167.6 Current Weight (lbs) 111 lb Weight (Calculated Kilograms) 50.3 Weight (Calculated Grams) 55277.8 [place] Body Weight 130 Body Mass Index (BMI) 17.9 Weight Status Underweight GI Symptoms GI Symptoms None Last BM none Skin Integrity/Comment: redness Estimated Nutritional Goals BEE in Kcals: Using Current wt Calories/Kcals/Kg 30-35 Kcals Calculated 2186-7413 Protein: Using Current wt Protein g/k.2 Protein Calculated 60 Fluid: ml 1500-1750ml (1ml/kcal) Nutritional Problem 1. Problem Problem inadequate food intake Etiology pt refusing to eat Signs/Symptoms: PO intake <25% since admission Malnutrition Alert Muscle Mass (Non-Severe) Mild Depletion Is there a minimum of two criteria No selected? Query Text:Check all the applicable criteria. A minimum of two criteria are recommended for diagnosis of either severe or non-severe malnutrition. Malnutrition Related to Morbid Obesity Malnutrition related to morbid obesity No Intervention/Recommendation Comments 1. Continue with current diet as ordered. Assist pt with meals and encourage oral intake. 2. Monitor PO intake, wt, labs and skin integrity 3. F/U as high risk in 2-3 days, 08/27-08/28 Expected Outcomes/Goals Expected Outcomes/Goals 1. PO intake to meet at least 75% of nutritional needs. 2. Wt stability, skin to remain intact, labs to approach WNL.
[2017-09-30] MEDS: TPN 8.5%-70% CUSTOM IV SCH (16:38)
[2017-10-01] MEDS: INSULIN ASPART SLIDING SCALE 100 UNITS/ML UNIT SUBQ SCH ×4 (00:10→18:06)
[2017-10-01 06:33] LABS: ANION GAP 12.2 (7.0-16.0); BUN - UREA NITROGEN 18 mg/dL (7-25); CALCIUM SERUM 9.8 mg/dL (8.6-10.3); CARBON DIOXIDE 26.4 mEq/L (21.0-31.0); CHLORIDE 106 mEq/L (98-107); CREATININE - SERUM 0.8 mg/dL (0.6-1.2); GFR AFRICAN-AMERICAN > 60.0 ml/min (>90); GFR NON AFRICAN-AMERICAN > 60.0 ml/min; GLUCOSE 96 mg/dL (70-105); MAGNESIUM 2.2 mg/dL (1.9-2.7); PHOSPHOROUS 4.3 mg/dL (2.5-5.0); SODIUM SERUM 139 mEq/L (136-145)
[2017-10-01 06:48] LABS: POTASSIUM SERUM 5.6 mEq/L (3.5-5.1)
[2017-10-01] MEDS ORDERED: Dextrose 10% 1,000 ML IV SCH (08:15)
[2017-10-01 08:16] LABS: ALB/GLOB RATIO 1.2 (1.0-1.8); ALBUMIN 3.5 gm/dL (3.7-5.3); BILIRUBIN,DIRECT 0.11 mg/dL (0.0-0.2); BILIRUBIN,TOTAL 0.7 mg/dL (0.3-1.0); TOTAL PROTEIN,SERUM 6.5 gm/dL (6.0-8.3)
[2017-10-01] MEDS: Ammonium Lactate Cream 140 gm Tube TP SCH (09:00)
[2017-10-01] MEDS: Theophylline 100 mg ER Tab PO SCH ×2 (09:00→18:35)
--- NOTE | 2017-10-01 13:23 | Internal Medicine Prog Note ---
Internal Medicine Subjective - Subjective Service Date: 10/01/17 (patient pulled out IV) Patient is:: awake, non-interactive, in bed, confused, other Patient Complaints of:: congestion Per staff patient has:: poor appetite, poor oral intake Internal Medicine Objective - Results Result Diagrams: 09/30/17 04:20 10/01/17 05:40 Recent Labs: Laboratory Last Values WBC 9.4 Th/cmm (4.8-10.8) 09/30/17 04:20 RBC 3.14 Mil/cmm (3.80-5.20) L 09/30/17 04:20 Hgb 9.8 gm/dL (12-16) L 09/30/17 04:20 Hct 28.7 % (41.0-60) L 09/30/17 04:20 MCV 91.5 fl (81-100) 09/30/17 04:20 MCH 31.2 pg (27.0-31.0) H 09/30/17 04:20 MCHC Differential 34.1 pg (28.0-36.0) 09/30/17 04:20 RDW 16.0 % (11.5-20.0) 09/30/17 04:20 Plt Count 318 Th/cmm (150-400) 09/30/17 04:20 MPV 10.8 fl 09/30/17 04:20 Neutrophils % 77.1 % (40.0-80.0) 09/30/17 04:20 Lymphocytes % 13.0 % (20.0-50.0) L 09/30/17 04:20 Monocytes % 7.9 % (2.0-10.0) 09/30/17 04:20 Eosinophils % 0.9 % (0.0-5.0) 09/30/17 04:20 Basophils % 1.1 % (0.0-2.0) 09/30/17 04:20 Sodium 139 mEq/L (136-145) 10/01/17 05:40 Potassium 5.6 mEq/L (3.5-5.1) H 10/01/17 05:40 Chloride 106 mEq/L (98-107) 10/01/17 05:40 Carbon Dioxide 26.4 mEq/L (21.0-31.0) 10/01/17 05:40 Anion Gap 12.2 (7.0-16.0) 10/01/17 05:40 BUN 18 mg/dL (7-25) 10/01/17 05:40 Creatinine 0.8 mg/dL (0.6-1.2) 10/01/17 05:40 Est GFR ( Amer) > 60.0 ml/min (>90) 10/01/17 05:40 Est GFR (Non-Af Amer) > 60.0 ml/min 10/01/17 05:40 BUN/Creatinine Ratio 22.5 10/01/17 05:40 Glucose 96 mg/dL (70-105) 10/01/17 05:40 POC Glucose 101 MG/DL (70 - 105) 10/01/17 12:13 Hemoglobin A1c % 5.2 % (4.0-6.0) 09/23/17 05:15 Calcium 9.8 mg/dL (8.6-10.3) 10/01/17 05:40 Phosphorus 4.3 mg/dL (2.5-5.0) 10/01/17 05:40 Magnesium 2.2 mg/dL (1.9-2.7) 10/01/17 05:40 Total Bilirubin 0.7 mg/dL (0.3-1.0) 10/01/17 05:40 Direct Bilirubin 0.11 mg/dL (0.0-0.2) 10/01/17 05:40 AST 32 U/L (13-39) 10/01/17 05:40 ALT 31 U/L (7-52) 10/01/17 05:40 Alkaline Phosphatase 64 U/L (34-104) 10/01/17 05:40 Ammonia 43 umol/L (16-53) 09/01/17 05:40 B-Natriuretic Peptide 86.7 pg/mL (5.0-100.0) 08/31/17 05:00 Total Protein 6.5 gm/dL (6.0-8.3) 10/01/17 05:40 Albumin 3.5 gm/dL (3.7-5.3) L 10/01/17 05:40 Globulin 3.0 gm/dL 10/01/17 05:40 Albumin/Globulin Ratio 1.2 (1.0-1.8) 10/01/17 05:40 Prealbumin 21 mg/dL (10-36) 09/23/17 10:16 Triglycerides 76 mg/dL (<150) 10/01/17 05:40 Cholesterol 140 mg/dL (<200) 10/01/17 05:40 Vitamin B12 790 pg/mL (232-1245) 09/01/17 05:40 Folic Acid 4.8 ng/mL (>3.0) 09/01/17 05:40 TSH 1.04 uIU/ml (0.34-5.60) 09/29/17 06:16 Urine Source [place] 08/29/17 13:45 Urine Color YELLOW 08/29/17 13:45 Urine Clarity SLIGHTLY HAZY (CLEAR) 08/29/17 13:45 Urine pH 7.5 (4.6 - 8.0) 08/29/17 13:45 Ur Specific [place] 1.010 (1.005-1.030) 08/29/17 13:45 Urine Protein NEGATIVE mg/dL (NEGATIVE) 08/29/17 13:45 Urine Glucose (UA) NEGATIVE mg/dL (NEGATIVE) 08/29/17 13:45 Urine Ketones NEGATIVE mg/dL (NEGATIVE) 08/29/17 13:45 Urine Blood TRACE (NEGATIVE) 08/29/17 13:45 Urine Nitrate NEGATIVE (NEGATIVE) 08/29/17 13:45 Urine Bilirubin NEGATIVE (NEGATIVE) 08/29/17 13:45 Urine Urobilinogen 0.2 E.U./dL (0.2 - 1.0) 08/29/17 13:45 Ur Leukocyte Esterase NEGATIVE (NEGATIVE) 08/29/17 13:45 Urine RBC 0-2 /hpf (0-5) 08/29/17 13:45 Urine WBC 0-2 /hpf (0-5) 08/29/17 13:45 Ur Epithelial Cells OCCASIONAL /lpf (FEW) 08/29/17 13:45 Urine Bacteria FEW /hpf (NONE SEEN) 08/29/17 13:45 Vancomycin Trough < 2.0 ug/mL (5-10) L 09/17/17 21:34 Hepatitis A IgM Ab Negative (Negative) 09/24/17 05:55 Hep Bs Antigen Negative (Negative) 09/24/17 05:55 Hep B Core IgM Ab Negative (Negative) 09/24/17 05:55 Hepatitis C Antibody 0.1 s/co ratio (0.0-0.9) 09/24/17 05:55 HIV 1&2 Antibody Screen NEGATIVE (NEG) 09/24/17 05:55 - Physical Exam Vitals and I&O: Vital Signs Temp 96.5 F 10/01/17 12:00 Pulse 78 10/01/17 12:00 Resp 18 10/01/17 12:00 BP 130/111 10/01/17 12:00 Pulse Ox 92 10/01/17 12:00 Intake & Output 09/30/17 10/01/17 10/01/17 18:59 06:59 18:59 Intake Total 2720 1232 Output Total 1000 200 Balance 1720 -200 1232 Weight (lbs) 101 lb 152 lb 9.6 oz Intake: Intake, IV Amount 1920 1232 Dextrose 70% 1,420 ml 1920 1232 Amino Acids 8.5% 500 ml @ 80 mls/hr IV .Q24H [facility] Rx#:[id number] TPN/PPN 800 Output: Urine 1000 200 Other: # Bowel Movements 0 0 Weight Source Bedscale Bedscale Active Medications: Current Medications Acetaminophen (Tylenol) 650 mg GT Q4HR PRN PRN Reason: Pain or Fever >101 Stop: 10/23/17 19:40 Albuterol Sulfate (Albuterol 2.5mg/3ml Neb Ud) 2.5 mg HHN Q4HRT PRN PRN Reason: Shortness of Breath Stop: 10/23/17 19:40 Artificial Tears (Artificial Tears Ophth Soln) 1 drop EACH EYE Q2H PRN PRN Reason: Dry Eye Stop: 11/10/17 10:46 Bisacodyl (Dulcolax 10 Mg Supp) 10 mg RC DAILY PRN PRN Reason: Constipation Stop: 10/23/17 19:40 Dextrose (D50w) 50 ml IVP PRN PRN; Protocol PRN Reason: hypoglycemia protocol Stop: 11/04/17 12:57 Last Admin: 09/24/17 12:10 Dose: 50 ml Docusate Sodium (Colace) 100 mg GT DAILY PRN PRN Reason: CONSTIPATION Stop: 10/24/17 08:59 Last Admin: 08/27/17 17:38 Dose: 100 mg Dextrose (D5w) 1,000 mls @ 50 mls/hr IV .Q20H [facility] Stop: 11/21/17 17:29 Last Admin: 09/30/17 06:27 Dose: 50 mls/hr Dextrose (Dextrose 10%) 1,000 mls @ 80 mls/hr IV .[id number] [facility] Stop: 10/01/17 15:59 Last Admin: 10/01/17 10:18 Dose: 80 mls/hr Multivitamins/Minerals 10 ml/Dextrose/ Amino Acids/Electrolytes 1,920 mls @ 80 mls/hr IV .Q24H [facility] Stop: 10/30/17 15:59 Insulin Aspart (Novolog Insulin Sliding Scale) 0 units SUBQ Q6H [facility]; Protocol Stop: 11/28/17 17:59 Last Admin: 10/01/17 12:19 Dose: Not Given Ipratropium [place] (Atrovent Neb 0.5mg/2.5ml) 0.5 mg HHN Q4HRT PRN PRN Reason: Shortness of Breath or Wheeze Stop: 10/23/17 19:40 Lactic Acid (Lac-Hydrin Cream) 1 appl TP DAILY [facility] Stop: 10/24/17 08:59 Last Admin: 09/30/17 09:14 Dose: 1 appl Levothyroxine Sodium (Synthroid) 0.05 mg IVP QDAC [facility] Stop: 11/23/17 07:29 Last Admin: 10/01/17 07:41 Dose: Not Given Lorazepam (Ativan) 1 mg IV Q4H PRN; Protocol PRN Reason: Agitation Stop: 11/19/17 07:48 Last Admin: 09/20/17 17:05 Dose: 1 mg Magnesium Hydroxide (Milk Of Magnesia) 30 ml PO HS PRN PRN Reason: Constipation Stop: 10/23/17 19:40 Megestrol Acetate (Megace) 400 mg PO BID [facility] Stop: 10/24/17 08:59 Last Admin: 10/01/17 09:00 Dose: Not Given Midodrine (Proamatine) 2.5 mg PO TID [facility] Stop: 11/20/17 20:59 Last Admin: 10/01/17 08:30 Dose: Not Given Mirtazapine (Remeron) 15 mg PO HS [facility]; Protocol Stop: 10/30/17 20:59 Last Admin: 09/30/17 22:26 Dose: Not Given Miscellaneous (Vte Chemical Prophylaxis Screen/ Admission) 1 ea MC PRN PRN PRN Reason: PROTOCOL Stop: 10/24/17 09:26 Miscellaneous (Probiotic Screen) 1 ea MC PRN PRN PRN Reason: PROTOCOL Stop: 10/29/17 08:59 Miscellaneous (Ppn Per Pharmacy) 1 ea MC PRN PRN PRN Reason: PPN PER RX Stop: 11/11/17 14:29 Olanzapine (Zyprexa) 5 mg PO HS [facility]; Protocol Stop: 10/23/17 20:59 Last Admin: 09/30/17 22:26 Dose: Not Given Sodium Phosphate (Fleet Enema) 135 ml RC DAILY PRN PRN Reason: Constipation Stop: 10/23/17 19:40 Theophylline (Elijah-Dur) 200 mg PO BID [facility] Stop: 11/23/17 16:59 Last Admin: 10/01/17 09:00 Dose: Not Given General: demented, disheveled, thin, cachectic HEENT: NC/AT, PERRLA Neck: Supple, No JVD, No LAD Lungs: chest deformity present Cardiovascular: RRR, Normal S1, Normal S2, with murmur Abdomen: soft, non-tender, thin, positive bowel sound Extremities: excoriation, contracture, deformity Neurological: disorganized, muscle weakness, unable to follow command - Procedures Procedures: Procedures Procedure Code Date RECREATIONAL THERAPY 93.81 11/09/10 Internal Medicine Assmt/Plan - Assessment Assessment: Failure to thrive poor p.o. intake severe protein-caloric malnutrition diabetes congestive heart failure acute on chronic renal insufficiency schizoaffective disorder hypertension hypokalemia dementia legally blind leukocytosis bedbound. noncompliant - Plan Plan: continue with PPn for nutritional support ivf for hydration monitor electrolytes need PEG PLACEMENT, awaiting for conservator, they will get back to us before Friday continue current plan of care Nutritional Asmnt/Malnutr-PDOC - Dietary Evaluation Malnutrition Findings (Please click <Entered> for more info): Nutritional Asmnt/Malnutrition Start: 08/25/17 17: 28 Text: Status: Complete Freq: Protocol: Document 08/25/17 17:28 [email or web address] (Rec: 08/25/17 17:32 [email or web address]) Nutritional Asmnt/Malnutrition Patient General Information Nutritional Screening High Risk Consult Diagnosis dehydration, FTT Pertinent Medical Hx/Surgical Hx DM, CHF, kidney failure, schizophrenia, HTN, dementia, legally blind, noncompliance Subjective Information Consult received for poor oral intake. Pt seen resting in bed at time of visit. Per nurse note, pt refused breakfast and lunch today. Pt on calorie count noted. Current Diet Order/ Nutrition Support pureed, nectar thin liquid Pertinent Medications D5-0.45ns, colace, novolog, megace Pertinent Labs 7/ K 3.0, glucose 106 Nutritional Hx/Data Height 5 ft 6 in Height (Calculated Centimeters) 167.6 Current Weight (lbs) 111 lb Weight (Calculated Kilograms) 50.3 Weight (Calculated Grams) 51941.8 [place] Body Weight 130 Body Mass Index (BMI) 17.9 Weight Status Underweight GI Symptoms GI Symptoms None Last BM none Skin Integrity/Comment: redness Estimated Nutritional Goals BEE in Kcals: Using Current wt Calories/Kcals/Kg 30-35 Kcals Calculated 1410-9570 Protein: Using Current wt Protein g/k.2 Protein Calculated 60 Fluid: ml 1500-1750ml (1ml/kcal) Nutritional Problem 1. Problem Problem inadequate food intake Etiology pt refusing to eat Signs/Symptoms: PO intake <25% since admission Malnutrition Alert Muscle Mass (Non-Severe) Mild Depletion Is there a minimum of two criteria No selected? Query Text:Check all the applicable criteria. A minimum of two criteria are recommended for diagnosis of either severe or non-severe malnutrition. Malnutrition Related to Morbid Obesity Malnutrition related to morbid obesity No Intervention/Recommendation Comments 1. Continue with current diet as ordered. Assist pt with meals and encourage oral intake. 2. Monitor PO intake, wt, labs and skin integrity 3. F/U as high risk in 2-3 days, 08/27-08/28 Expected Outcomes/Goals Expected Outcomes/Goals 1. PO intake to meet at least 75% of nutritional needs. 2. Wt stability, skin to remain intact, labs to approach WNL.
[2017-10-01] MEDS: TPN 8.5%-70% CUSTOM IV SCH (17:33)
[2017-10-02] MEDS: INSULIN ASPART SLIDING SCALE 100 UNITS/ML UNIT SUBQ SCH ×4 (00:40→18:26)
[2017-10-02 06:23] LABS: % BASOPHILS 1.1 % (0.0-2.0); % EOSINOPHILS 0.8 % (0.0-5.0); % LYMPHOCYTES 23.2 % (20.0-50.0); % MONOCYTES 7.9 % (2.0-10.0); BASOPHILE ABSOLUTE 0.1 Th/cumm (0-0.2); HEMATOCRIT 29.5 % (41.0-60); HEMOGLOBIN 9.8 gm/dL (12-16); LYMPHOCYTE ABSOLUTE 1.3 Th/cmm (1.5-3.0); MEAN CELL VOLUME 92.3 fl (81-100); MEAN CORPUSCULAR HEMOGLOBIN 30.7 pg (27.0-31.0); MEAN CORPUSCULAR HGB CONC 33.3 pg (28.0-36.0); MEAN PLATELET VOLUME 10.4 fl; MONOCYTE ABSOLUTE 0.4 Th/cmm (0.3-1.0); NEUTROPHILE ABSOLUTE 3.8 Th/cmm (1.8-8.0); PLATELET COUNT 317 Th/cmm (150-400); RED CELL DISTRIBUTION WIDTH 15.8 % (11.5-20.0); WHITE BLOOD COUNT 5.6 Th/cmm (4.8-10.8)
[2017-10-02 06:36] LABS: ANION GAP 8.8 (7.0-16.0); BUN - UREA NITROGEN 18 mg/dL (7-25); CALCIUM SERUM 9.7 mg/dL (8.6-10.3); CARBON DIOXIDE 28.2 mEq/L (21.0-31.0); CHLORIDE 106 mEq/L (98-107); CREATININE - SERUM 0.8 mg/dL (0.6-1.2); GFR AFRICAN-AMERICAN > 60.0 ml/min (>90); GFR NON AFRICAN-AMERICAN > 60.0 ml/min; GLUCOSE 105 mg/dL (70-105); SODIUM SERUM 139 mEq/L (136-145)
[2017-10-02 09:23] LABS: MAGNESIUM 2.1 mg/dL (1.9-2.7); PHOSPHOROUS 3.7 mg/dL (2.5-5.0)
[2017-10-02] MEDS: Ammonium Lactate Cream 140 gm Tube TP SCH (09:33)
[2017-10-02] MEDS: Theophylline 100 mg ER Tab PO SCH ×2 (09:34→17:32)
--- NOTE | 2017-10-02 12:55 | Internal Medicine Prog Note ---
Internal Medicine Subjective - Subjective Service Date: 10/02/17 Patient seen and examined:: with staff Patient is:: awake, non-interactive, in bed, confused, other Patient Complaints of:: congestion Per staff patient has:: poor appetite, poor oral intake Internal Medicine Objective - Results Result Diagrams: 10/02/17 06:00 10/02/17 06:00 Recent Labs: Laboratory Last Values WBC 5.6 Th/cmm (4.8-10.8) 10/02/17 06:00 RBC 3.20 Mil/cmm (3.80-5.20) L 10/02/17 06:00 Hgb 9.8 gm/dL (12-16) L 10/02/17 06:00 Hct 29.5 % (41.0-60) L 10/02/17 06:00 MCV 92.3 fl (81-100) 10/02/17 06:00 MCH 30.7 pg (27.0-31.0) 10/02/17 06:00 MCHC Differential 33.3 pg (28.0-36.0) 10/02/17 06:00 RDW 15.8 % (11.5-20.0) 10/02/17 06:00 Plt Count 317 Th/cmm (150-400) 10/02/17 06:00 MPV 10.4 fl 10/02/17 06:00 Neutrophils % 67.0 % (40.0-80.0) 10/02/17 06:00 Lymphocytes % 23.2 % (20.0-50.0) 10/02/17 06:00 Monocytes % 7.9 % (2.0-10.0) 10/02/17 06:00 Eosinophils % 0.8 % (0.0-5.0) 10/02/17 06:00 Basophils % 1.1 % (0.0-2.0) 10/02/17 06:00 Sodium 139 mEq/L (136-145) 10/02/17 06:00 Potassium 4.0 mEq/L (3.5-5.1) 10/02/17 06:00 Chloride 106 mEq/L (98-107) 10/02/17 06:00 Carbon Dioxide 28.2 mEq/L (21.0-31.0) 10/02/17 06:00 Anion Gap 8.8 (7.0-16.0) 10/02/17 06:00 BUN 18 mg/dL (7-25) 10/02/17 06:00 Creatinine 0.8 mg/dL (0.6-1.2) 10/02/17 06:00 Est GFR ( Amer) > 60.0 ml/min (>90) 10/02/17 06:00 Est GFR (Non-Af Amer) > 60.0 ml/min 10/02/17 06:00 BUN/Creatinine Ratio 22.5 10/02/17 06:00 Glucose 105 mg/dL (70-105) 10/02/17 06:00 POC Glucose 117 MG/DL (70 - 105) H 10/02/17 11:50 Hemoglobin A1c % 5.2 % (4.0-6.0) 09/23/17 05:15 Calcium 9.7 mg/dL (8.6-10.3) 10/02/17 06:00 Phosphorus 3.7 mg/dL (2.5-5.0) 10/02/17 06:00 Magnesium 2.1 mg/dL (1.9-2.7) 10/02/17 06:00 Total Bilirubin 0.7 mg/dL (0.3-1.0) 10/01/17 05:40 Direct Bilirubin 0.11 mg/dL (0.0-0.2) 10/01/17 05:40 AST 32 U/L (13-39) 10/01/17 05:40 ALT 31 U/L (7-52) 10/01/17 05:40 Alkaline Phosphatase 64 U/L (34-104) 10/01/17 05:40 Ammonia 43 umol/L (16-53) 09/01/17 05:40 B-Natriuretic Peptide 86.7 pg/mL (5.0-100.0) 08/31/17 05:00 Total Protein 6.5 gm/dL (6.0-8.3) 10/01/17 05:40 Albumin 3.5 gm/dL (3.7-5.3) L 10/01/17 05:40 Globulin 3.0 gm/dL 10/01/17 05:40 Albumin/Globulin Ratio 1.2 (1.0-1.8) 10/01/17 05:40 Prealbumin 21 mg/dL (10-36) 10/01/17 05:40 Triglycerides 76 mg/dL (<150) 10/01/17 05:40 Cholesterol 140 mg/dL (<200) 10/01/17 05:40 Vitamin B12 790 pg/mL (232-1245) 09/01/17 05:40 Folic Acid 4.8 ng/mL (>3.0) 09/01/17 05:40 TSH 1.04 uIU/ml (0.34-5.60) 09/29/17 06:16 Urine Source [place] 08/29/17 13:45 Urine Color YELLOW 08/29/17 13:45 Urine Clarity SLIGHTLY HAZY (CLEAR) 08/29/17 13:45 Urine pH 7.5 (4.6 - 8.0) 08/29/17 13:45 Ur Specific [place] 1.010 (1.005-1.030) 08/29/17 13:45 Urine Protein NEGATIVE mg/dL (NEGATIVE) 08/29/17 13:45 Urine Glucose (UA) NEGATIVE mg/dL (NEGATIVE) 08/29/17 13:45 Urine Ketones NEGATIVE mg/dL (NEGATIVE) 08/29/17 13:45 Urine Blood TRACE (NEGATIVE) 08/29/17 13:45 Urine Nitrate NEGATIVE (NEGATIVE) 08/29/17 13:45 Urine Bilirubin NEGATIVE (NEGATIVE) 08/29/17 13:45 Urine Urobilinogen 0.2 E.U./dL (0.2 - 1.0) 08/29/17 13:45 Ur Leukocyte Esterase NEGATIVE (NEGATIVE) 08/29/17 13:45 Urine RBC 0-2 /hpf (0-5) 08/29/17 13:45 Urine WBC 0-2 /hpf (0-5) 08/29/17 13:45 Ur Epithelial Cells OCCASIONAL /lpf (FEW) 08/29/17 13:45 Urine Bacteria FEW /hpf (NONE SEEN) 08/29/17 13:45 Vancomycin Trough < 2.0 ug/mL (5-10) L 09/17/17 21:34 Hepatitis A IgM Ab Negative (Negative) 09/24/17 05:55 Hep Bs Antigen Negative (Negative) 09/24/17 05:55 Hep B Core IgM Ab Negative (Negative) 09/24/17 05:55 Hepatitis C Antibody 0.1 s/co ratio (0.0-0.9) 09/24/17 05:55 HIV 1&2 Antibody Screen NEGATIVE (NEG) 09/24/17 05:55 - Physical Exam Vitals and I&O: Vital Signs Temp 97.3 F 10/02/17 12:00 Pulse 70 10/02/17 12:00 Resp 18 10/02/17 12:00 BP 140/60 10/02/17 12:00 Pulse Ox 96 10/02/17 12:00 Intake & Output 10/01/17 10/02/17 10/02/17 18:59 06:59 18:59 Intake Total 1232 Output Total 350 Balance 1232 -350 Weight (lbs) 151 lb Intake: Intake, IV Amount 1232 Dextrose 70% 1,420 ml 1232 Amino Acids 8.5% 500 ml @ 80 mls/hr IV .Q24H [facility] Rx#:[id number] Output: Other 350 Other: Weight Source Bedscale Active Medications: Current Medications Acetaminophen (Tylenol) 650 mg GT Q4HR PRN PRN Reason: Pain or Fever >101 Stop: 10/23/17 19:40 Albuterol Sulfate (Albuterol 2.5mg/3ml Neb Ud) 2.5 mg HHN Q4HRT PRN PRN Reason: Shortness of Breath Stop: 10/23/17 19:40 Artificial Tears (Artificial Tears Ophth Soln) 1 drop EACH EYE Q2H PRN PRN Reason: Dry Eye Stop: 11/10/17 10:46 Bisacodyl (Dulcolax 10 Mg Supp) 10 mg RC DAILY PRN PRN Reason: Constipation Stop: 10/23/17 19:40 Dextrose (D50w) 50 ml IVP PRN PRN; Protocol PRN Reason: hypoglycemia protocol Stop: 11/04/17 12:57 Last Admin: 09/24/17 12:10 Dose: 50 ml Docusate Sodium (Colace) 100 mg GT DAILY PRN PRN Reason: CONSTIPATION Stop: 10/24/17 08:59 Last Admin: 08/27/17 17:38 Dose: 100 mg Dextrose (D5w) 1,000 mls @ 50 mls/hr IV .Q20H [facility] Stop: 11/21/17 17:29 Last Admin: 09/30/17 06:27 Dose: 50 mls/hr Multivitamins/Minerals 10 ml/Dextrose/ Amino Acids/Electrolytes/ Fat Emulsion Intravenous 1,920 mls @ 80 mls/hr IV .Q24H [facility] Stop: 10/30/17 15:59 Last Admin: 10/01/17 17:33 Dose: 80 mls/hr Insulin Aspart (Novolog Insulin Sliding Scale) 0 units SUBQ Q6H [facility]; Protocol Stop: 11/28/17 17:59 Last Admin: 10/02/17 12:07 Dose: Not Given Ipratropium [place] (Atrovent Neb 0.5mg/2.5ml) 0.5 mg HHN Q4HRT PRN PRN Reason: Shortness of Breath or Wheeze Stop: 10/23/17 19:40 Lactic Acid (Lac-Hydrin Cream) 1 appl TP DAILY [facility] Stop: 10/24/17 08:59 Last Admin: 10/02/17 09:33 Dose: Not Given Levothyroxine Sodium (Synthroid) 0.05 mg IVP QDAC [facility] Stop: 11/23/17 07:29 Last Admin: 10/02/17 07:08 Dose: Not Given Lorazepam (Ativan) 1 mg IV Q4H PRN; Protocol PRN Reason: Agitation Stop: 11/19/17 07:48 Last Admin: 09/20/17 17:05 Dose: 1 mg Magnesium Hydroxide (Milk Of Magnesia) 30 ml PO HS PRN PRN Reason: Constipation Stop: 10/23/17 19:40 Megestrol Acetate (Megace) 400 mg PO BID [facility] Stop: 10/24/17 08:59 Last Admin: 10/02/17 09:33 Dose: Not Given Midodrine (Proamatine) 2.5 mg PO TID [facility] Stop: 11/20/17 20:59 Last Admin: 10/02/17 09:34 Dose: Not Given Mirtazapine (Remeron) 15 mg PO HS [facility]; Protocol Stop: 10/30/17 20:59 Last Admin: 10/01/17 21:30 Dose: Not Given Miscellaneous (Vte Chemical Prophylaxis Screen/ Admission) 1 ea MC PRN PRN PRN Reason: PROTOCOL Stop: 10/24/17 09:26 Miscellaneous (Probiotic Screen) 1 ea MC PRN PRN PRN Reason: PROTOCOL Stop: 10/29/17 08:59 Miscellaneous (Ppn Per Pharmacy) 1 ea MC PRN PRN PRN Reason: PPN PER RX Stop: 11/11/17 14:29 Olanzapine (Zyprexa) 5 mg PO HS [facility]; Protocol Stop: 10/23/17 20:59 Last Admin: 10/01/17 21:30 Dose: Not Given Sodium Phosphate (Fleet Enema) 135 ml RC DAILY PRN PRN Reason: Constipation Stop: 10/23/17 19:40 Theophylline (Elijah-Dur) 200 mg PO BID [facility] Stop: 11/23/17 16:59 Last Admin: 10/02/17 09:34 Dose: Not Given General: demented, disheveled, thin, cachectic HEENT: NC/AT, PERRLA Neck: Supple, No JVD, No LAD Lungs: chest deformity present Cardiovascular: RRR, Normal S1, Normal S2, with murmur Abdomen: soft, non-tender, thin, positive bowel sound Extremities: excoriation, contracture, deformity Neurological: disorganized, muscle weakness, unable to follow command - Procedures Procedures: Procedures Procedure Code Date RECREATIONAL THERAPY 93.81 11/09/10 Internal Medicine Assmt/Plan - Assessment Assessment: Failure to thrive poor p.o. intake severe protein-caloric malnutrition diabetes congestive heart failure acute on chronic renal insufficiency schizoaffective disorder hypertension hypokalemia dementia legally blind leukocytosis bedbound. noncompliant - Plan Plan: continue with PPn for nutritional support ivf for hydration monitor electrolytes need PEG PLACEMENT, awaiting for conservator, they will get back to us before Friday continue current plan of care Nutritional Asmnt/Malnutr-PDOC - Dietary Evaluation Malnutrition Findings (Please click <Entered> for more info): Nutritional Asmnt/Malnutrition Start: 08/25/17 17: 28 Text: Status: Complete Freq: Protocol: Document 08/25/17 17:28 [email or web address] (Rec: 08/25/17 17:32 [email or web address]) Nutritional Asmnt/Malnutrition Patient General Information Nutritional Screening High Risk Consult Diagnosis dehydration, FTT Pertinent Medical Hx/Surgical Hx DM, CHF, kidney failure, schizophrenia, HTN, dementia, legally blind, noncompliance Subjective Information Consult received for poor oral intake. Pt seen resting in bed at time of visit. Per nurse note, pt refused breakfast and lunch today. Pt on calorie count noted. Current Diet Order/ Nutrition Support pureed, nectar thin liquid Pertinent Medications D5-0.45ns, colace, novolog, megace Pertinent Labs 08/25 K 3.0, glucose 106 Nutritional Hx/Data Height 5 ft 6 in Height (Calculated Centimeters) 167.6 Current Weight (lbs) 111 lb Weight (Calculated Kilograms) 50.3 Weight (Calculated Grams) 12430.8 [place] Body Weight 130 Body Mass Index (BMI) 17.9 Weight Status Underweight GI Symptoms GI Symptoms None Last BM none Skin Integrity/Comment: redness Estimated Nutritional Goals BEE in Kcals: Using Current wt Calories/Kcals/Kg 30-35 Kcals Calculated 8739-9158 Protein: Using Current wt Protein g/k.2 Protein Calculated 60 Fluid: ml 1500-1750ml (1ml/kcal) Nutritional Problem 1. Problem Problem inadequate food intake Etiology pt refusing to eat Signs/Symptoms: PO intake <25% since admission Malnutrition Alert Muscle Mass (Non-Severe) Mild Depletion Is there a minimum of two criteria No selected? Query Text:Check all the applicable criteria. A minimum of two criteria are recommended for diagnosis of either severe or non-severe malnutrition. Malnutrition Related to Morbid Obesity Malnutrition related to morbid obesity No Intervention/Recommendation Comments 1. Continue with current diet as ordered. Assist pt with meals and encourage oral intake. 2. Monitor PO intake, wt, labs and skin integrity 3. F/U as high risk in 2-3 days, 08/27-08/28 Expected Outcomes/Goals Expected Outcomes/Goals 1. PO intake to meet at least 75% of nutritional needs. 2. Wt stability, skin to remain intact, labs to approach WNL.
[2017-10-02] MEDS: TPN 8.5%-70% CUSTOM IV SCH (15:27)
[2017-10-03] MEDS: INSULIN ASPART SLIDING SCALE 100 UNITS/ML UNIT SUBQ SCH ×4 (00:32→17:46)
[2017-10-03 07:17] LABS: ANION GAP 11.8 (7.0-16.0); BUN - UREA NITROGEN 18 mg/dL (7-25); CALCIUM SERUM 10.1 mg/dL (8.6-10.3); CARBON DIOXIDE 24.2 mEq/L (21.0-31.0); CHLORIDE 107 mEq/L (98-107); CREATININE - SERUM 0.8 mg/dL (0.6-1.2); GFR AFRICAN-AMERICAN > 60.0 ml/min (>90); GFR NON AFRICAN-AMERICAN > 60.0 ml/min; GLUCOSE 77 mg/dL (70-105); MAGNESIUM 2.3 mg/dL (1.9-2.7); PHOSPHOROUS 4.7 mg/dL (2.5-5.0); SODIUM SERUM 139 mEq/L (136-145)
[2017-10-03 07:19] LABS: % EOSINOPHILS 0.8 % (0.0-5.0); % LYMPHOCYTES 24.5 % (20.0-50.0); % MONOCYTES 6.2 % (2.0-10.0); % NEUTROPHILS 68.5 % (40.0-80.0); HEMATOCRIT 30.4 % (41.0-60); HEMOGLOBIN 10.1 gm/dL (12-16); LYMPHOCYTE ABSOLUTE 1.5 Th/cmm (1.5-3.0); MEAN CELL VOLUME 91.8 fl (81-100); MEAN CORPUSCULAR HEMOGLOBIN 30.6 pg (27.0-31.0); MEAN CORPUSCULAR HGB CONC 33.3 pg (28.0-36.0); MEAN PLATELET VOLUME 11.1 fl; MONOCYTE ABSOLUTE 0.4 Th/cmm (0.3-1.0); NEUTROPHILE ABSOLUTE 4.1 Th/cmm (1.8-8.0); PLATELET COUNT 267 Th/cmm (150-400); RED BLOOD COUNT 3.31 Mil/cmm (3.80-5.20)
[2017-10-03] MEDS: Ammonium Lactate Cream 140 gm Tube TP SCH (09:51)
[2017-10-03] MEDS: Theophylline 100 mg ER Tab PO SCH ×2 (09:52→17:46)
--- NOTE | 2017-10-03 12:48 | Internal Medicine Prog Note ---
Internal Medicine Subjective - Subjective Service Date: 10/03/17 Patient is:: awake, non-interactive, in bed, confused, other Patient Complaints of:: congestion Per staff patient has:: poor appetite, poor oral intake Internal Medicine Objective - Results Result Diagrams: 10/03/17 06:15 10/03/17 06:15 Recent Labs: Laboratory Last Values WBC 6.0 Th/cmm (4.8-10.8) 10/03/17 06:15 RBC 3.31 Mil/cmm (3.80-5.20) L 10/03/17 06:15 Hgb 10.1 gm/dL (12-16) L 10/03/17 06:15 Hct 30.4 % (41.0-60) L 10/03/17 06:15 MCV 91.8 fl (81-100) 10/03/17 06:15 MCH 30.6 pg (27.0-31.0) 10/03/17 06:15 MCHC Differential 33.3 pg (28.0-36.0) 10/03/17 06:15 RDW 16.0 % (11.5-20.0) 10/03/17 06:15 Plt Count 267 Th/cmm (150-400) 10/03/17 06:15 MPV 11.1 fl 10/03/17 06:15 Neutrophils % 68.5 % (40.0-80.0) 10/03/17 06:15 Lymphocytes % 24.5 % (20.0-50.0) 10/03/17 06:15 Monocytes % 6.2 % (2.0-10.0) 10/03/17 06:15 Eosinophils % 0.8 % (0.0-5.0) 10/03/17 06:15 Basophils % 0.0 % (0.0-2.0) 10/03/17 06:15 Sodium 139 mEq/L (136-145) 10/03/17 06:15 Potassium 4.0 mEq/L (3.5-5.1) 10/03/17 06:15 Chloride 107 mEq/L (98-107) 10/03/17 06:15 Carbon Dioxide 24.2 mEq/L (21.0-31.0) 10/03/17 06:15 Anion Gap 11.8 (7.0-16.0) 10/03/17 06:15 BUN 18 mg/dL (7-25) 10/03/17 06:15 Creatinine 0.8 mg/dL (0.6-1.2) 10/03/17 06:15 Est GFR ( Amer) > 60.0 ml/min (>90) 10/03/17 06:15 Est GFR (Non-Af Amer) > 60.0 ml/min 10/03/17 06:15 BUN/Creatinine Ratio 22.5 10/03/17 06:15 Glucose 77 mg/dL (70-105) 10/03/17 06:15 POC Glucose 105 MG/DL (70 - 105) 10/03/17 05:46 Hemoglobin A1c % 5.2 % (4.0-6.0) 09/23/17 05:15 Calcium 10.1 mg/dL (8.6-10.3) 10/03/17 06:15 Phosphorus 4.7 mg/dL (2.5-5.0) 10/03/17 06:15 Magnesium 2.3 mg/dL (1.9-2.7) 10/03/17 06:15 Total Bilirubin 0.7 mg/dL (0.3-1.0) 10/01/17 05:40 Direct Bilirubin 0.11 mg/dL (0.0-0.2) 10/01/17 05:40 AST 32 U/L (13-39) 10/01/17 05:40 ALT 31 U/L (7-52) 10/01/17 05:40 Alkaline Phosphatase 64 U/L (34-104) 10/01/17 05:40 Ammonia 43 umol/L (16-53) 09/01/17 05:40 B-Natriuretic Peptide 86.7 pg/mL (5.0-100.0) 08/31/17 05:00 Total Protein 6.5 gm/dL (6.0-8.3) 10/01/17 05:40 Albumin 3.5 gm/dL (3.7-5.3) L 10/01/17 05:40 Globulin 3.0 gm/dL 10/01/17 05:40 Albumin/Globulin Ratio 1.2 (1.0-1.8) 10/01/17 05:40 Prealbumin 21 mg/dL (10-36) 10/01/17 05:40 Triglycerides 76 mg/dL (<150) 10/01/17 05:40 Cholesterol 140 mg/dL (<200) 10/01/17 05:40 Vitamin B12 790 pg/mL (232-1245) 09/01/17 05:40 Folic Acid 4.8 ng/mL (>3.0) 09/01/17 05:40 TSH 1.04 uIU/ml (0.34-5.60) 09/29/17 06:16 Urine Source [place] 08/29/17 13:45 Urine Color YELLOW 08/29/17 13:45 Urine Clarity SLIGHTLY HAZY (CLEAR) 08/29/17 13:45 Urine pH 7.5 (4.6 - 8.0) 08/29/17 13:45 Ur Specific [place] 1.010 (1.005-1.030) 08/29/17 13:45 Urine Protein NEGATIVE mg/dL (NEGATIVE) 08/29/17 13:45 Urine Glucose (UA) NEGATIVE mg/dL (NEGATIVE) 08/29/17 13:45 Urine Ketones NEGATIVE mg/dL (NEGATIVE) 08/29/17 13:45 Urine Blood TRACE (NEGATIVE) 08/29/17 13:45 Urine Nitrate NEGATIVE (NEGATIVE) 08/29/17 13:45 Urine Bilirubin NEGATIVE (NEGATIVE) 08/29/17 13:45 Urine Urobilinogen 0.2 E.U./dL (0.2 - 1.0) 08/29/17 13:45 Ur Leukocyte Esterase NEGATIVE (NEGATIVE) 08/29/17 13:45 Urine RBC 0-2 /hpf (0-5) 08/29/17 13:45 Urine WBC 0-2 /hpf (0-5) 08/29/17 13:45 Ur Epithelial Cells OCCASIONAL /lpf (FEW) 08/29/17 13:45 Urine Bacteria FEW /hpf (NONE SEEN) 08/29/17 13:45 Vancomycin Trough < 2.0 ug/mL (5-10) L 09/17/17 21:34 Hepatitis A IgM Ab Negative (Negative) 09/24/17 05:55 Hep Bs Antigen Negative (Negative) 09/24/17 05:55 Hep B Core IgM Ab Negative (Negative) 09/24/17 05:55 Hepatitis C Antibody 0.1 s/co ratio (0.0-0.9) 09/24/17 05:55 HIV 1&2 Antibody Screen NEGATIVE (NEG) 09/24/17 05:55 - Physical Exam Vitals and I&O: Vital Signs Temp 96.6 F 10/03/17 04:00 Pulse 54 10/03/17 07:17 Resp 18 10/03/17 07:17 BP 106/50 10/03/17 04:00 Pulse Ox 95 10/03/17 07:17 Intake & Output 10/02/17 10/03/17 10/03/17 18:59 06:59 18:59 Intake Total 2712 450 960 Output Total 600 900 200 Balance 2112 -450 760 Weight (lbs) 151 lb 96 lb 3.2 oz 96 lb 3.2 oz Intake: Intake, IV Amount 1752 Multivitamin Inj 10 ml In 1752 Dextrose 70% 1,160 ml In Amino Acids 8.5% 500 ml In Intralipids 20% 250 ml @ 80 mls/hr IV .Q24H FOZIA Rx#:[id number] TPN/PPN 960 450 960 Output: Urine 600 900 200 Other: # Bowel Movements 0 0 1 Weight Source Bedscale Bedscale Bedscale Active Medications: Current Medications Acetaminophen (Tylenol) 650 mg GT Q4HR PRN PRN Reason: Pain or Fever >101 Stop: 10/23/17 19:40 Albuterol Sulfate (Albuterol 2.5mg/3ml Neb Ud) 2.5 mg HHN Q4HRT PRN PRN Reason: Shortness of Breath Stop: 10/23/17 19:40 Artificial Tears (Artificial Tears Ophth Soln) 1 drop EACH EYE Q2H PRN PRN Reason: Dry Eye Stop: 11/10/17 10:46 Bisacodyl (Dulcolax 10 Mg Supp) 10 mg RC DAILY PRN PRN Reason: Constipation Stop: 10/23/17 19:40 Dextrose (D50w) 50 ml IVP PRN PRN; Protocol PRN Reason: hypoglycemia protocol Stop: 11/04/17 12:57 Last Admin: 09/24/17 12:10 Dose: 50 ml Docusate Sodium (Colace) 100 mg GT DAILY PRN PRN Reason: CONSTIPATION Stop: 10/24/17 08:59 Last Admin: 08/27/17 17:38 Dose: 100 mg Dextrose (D5w) 1,000 mls @ 50 mls/hr IV .Q20H FOZIA Stop: 11/21/17 17:29 Last Admin: 09/30/17 06:27 Dose: 50 mls/hr Multivitamins/Minerals 10 ml/Dextrose/ Amino Acids/Electrolytes/ Fat Emulsion Intravenous 1,920 mls @ 80 mls/hr IV .Q24H FOZIA Stop: 10/30/17 15:59 Last Admin: 10/02/17 15:27 Dose: 80 mls/hr Insulin Aspart (Novolog Insulin Sliding Scale) 0 units SUBQ Q6H FOZIA; Protocol Stop: 11/28/17 17:59 Last Admin: 10/03/17 12:26 Dose: Not Given Ipratropium [place] (Atrovent Neb 0.5mg/2.5ml) 0.5 mg HHN Q4HRT PRN PRN Reason: Shortness of Breath or Wheeze Stop: 10/23/17 19:40 Lactic Acid (Lac-Hydrin Cream) 1 appl TP DAILY [facility] Stop: 10/24/17 08:59 Last Admin: 10/03/17 09:51 Dose: Not Given Levothyroxine Sodium (Synthroid) 0.05 mg IVP QDAC FOZIA Stop: 11/23/17 07:29 Last Admin: 10/03/17 09:51 Dose: Not Given Lorazepam (Ativan) 1 mg IV Q4H PRN; Protocol PRN Reason: Agitation Stop: 11/19/17 07:48 Last Admin: 09/20/17 17:05 Dose: 1 mg Magnesium Hydroxide (Milk Of Magnesia) 30 ml PO HS PRN PRN Reason: Constipation Stop: 10/23/17 19:40 Megestrol Acetate (Megace) 400 mg PO BID [facility] Stop: 10/24/17 08:59 Last Admin: 10/03/17 09:52 Dose: Not Given Midodrine (Proamatine) 2.5 mg PO TID [facility] Stop: 11/20/17 20:59 Last Admin: 10/03/17 09:52 Dose: Not Given Mirtazapine (Remeron) 15 mg PO HS FOZIA; Protocol Stop: 10/30/17 20:59 Last Admin: 10/02/17 21:00 Dose: Not Given Miscellaneous (Vte Chemical Prophylaxis Screen/ Admission) 1 ea MC PRN PRN PRN Reason: PROTOCOL Stop: 10/24/17 09:26 Miscellaneous (Probiotic Screen) 1 ea MC PRN PRN PRN Reason: PROTOCOL Stop: 10/29/17 08:59 Miscellaneous (Ppn Per Pharmacy) 1 ea MC PRN PRN PRN Reason: PPN PER RX Stop: 11/11/17 14:29 Olanzapine (Zyprexa) 5 mg PO HS FOZIA; Protocol Stop: 10/23/17 20:59 Last Admin: 10/02/17 21:00 Dose: Not Given Sodium Phosphate (Fleet Enema) 135 ml RC DAILY PRN PRN Reason: Constipation Stop: 10/23/17 19:40 Theophylline (Elijah-Dur) 200 mg PO BID FOZIA Stop: 11/23/17 16:59 Last Admin: 10/03/17 09:52 Dose: Not Given General: demented, disheveled, thin, cachectic HEENT: NC/AT, PERRLA Neck: Supple, No JVD, No LAD Lungs: chest deformity present Cardiovascular: RRR, Normal S1, Normal S2, with murmur Abdomen: soft, non-tender, thin, positive bowel sound Extremities: excoriation, contracture, deformity Neurological: disorganized, muscle weakness, unable to follow command - Procedures Procedures: Procedures Procedure Code Date RECREATIONAL THERAPY 93.81 11/09/10 Internal Medicine Assmt/Plan - Assessment Assessment: Failure to thrive poor p.o. intake severe protein-caloric malnutrition diabetes congestive heart failure acute on chronic renal insufficiency schizoaffective disorder hypertension hypokalemia dementia legally blind leukocytosis bedbound. noncompliant - Plan Plan: for peg placement, consent obtained. continue with PPn for nutritional support ivf for hydration monitor electrolytes continue current plan of care Nutritional Asmnt/Malnutr-PDOC - Dietary Evaluation Malnutrition Findings (Please click <Entered> for more info): Nutritional Asmnt/Malnutrition Start: 08/25/17 17: 28 Text: Status: Complete Freq: Protocol: Document 08/25/17 17:28 [email or web address] (Rec: 08/25/17 17:32 [email or web address]) Nutritional Asmnt/Malnutrition Patient General Information Nutritional Screening High Risk Consult Diagnosis dehydration, FTT Pertinent Medical Hx/Surgical Hx DM, CHF, kidney failure, schizophrenia, HTN, dementia, legally blind, noncompliance Subjective Information Consult received for poor oral intake. Pt seen resting in bed at time of visit. Per nurse note, pt refused breakfast and lunch today. Pt on calorie count noted. Current Diet Order/ Nutrition Support pureed, nectar thin liquid Pertinent Medications D5-0.45ns, colace, novolog, megace Pertinent Labs 08/25 K 3.0, glucose 106 Nutritional Hx/Data Height 5 ft 6 in Height (Calculated Centimeters) 167.6 Current Weight (lbs) 111 lb Weight (Calculated Kilograms) 50.3 Weight (Calculated Grams) 68099.8 [place] Body Weight 130 Body Mass Index (BMI) 17.9 Weight Status Underweight GI Symptoms GI Symptoms None Last BM none Skin Integrity/Comment: redness Estimated Nutritional Goals BEE in Kcals: Using Current wt Calories/Kcals/Kg 30-35 Kcals Calculated 3893-3318 Protein: Using Current wt Protein g/k.2 Protein Calculated 60 Fluid: ml 1500-1750ml (1ml/kcal) Nutritional Problem 1. Problem Problem inadequate food intake Etiology pt refusing to eat Signs/Symptoms: PO intake <25% since admission Malnutrition Alert Muscle Mass (Non-Severe) Mild Depletion Is there a minimum of two criteria No selected? Query Text:Check all the applicable criteria. A minimum of two criteria are recommended for diagnosis of either severe or non-severe malnutrition. Malnutrition Related to Morbid Obesity Malnutrition related to morbid obesity No Intervention/Recommendation Comments 1. Continue with current diet as ordered. Assist pt with meals and encourage oral intake. 2. Monitor PO intake, wt, labs and skin integrity 3. F/U as high risk in 2-3 days, 08/27-08/28 Expected Outcomes/Goals Expected Outcomes/Goals 1. PO intake to meet at least 75% of nutritional needs. 2. Wt stability, skin to remain intact, labs to approach WNL.
[2017-10-03] MEDS: TPN 8.5%-70% CUSTOM IV SCH (15:24)
[2017-10-04] MEDS: INSULIN ASPART SLIDING SCALE 100 UNITS/ML UNIT SUBQ SCH ×4 (00:21→17:56)
[2017-10-04 07:28] LABS: % BASOPHILS 0.7 % (0.0-2.0); % LYMPHOCYTES 21.3 % (20.0-50.0); % MONOCYTES 4.7 % (2.0-10.0); % NEUTROPHILS 72.3 % (40.0-80.0); ANION GAP 10.3 (7.0-16.0); BUN - UREA NITROGEN 18 mg/dL (7-25); CALCIUM SERUM 10.1 mg/dL (8.6-10.3); CARBON DIOXIDE 29.6 mEq/L (21.0-31.0); CHLORIDE 106 mEq/L (98-107); CREATININE - SERUM 0.8 mg/dL (0.6-1.2); EOSINOPHILE ABSOLUTE 0.1 Th/cmm (0.1-0.4); GFR AFRICAN-AMERICAN > 60.0 ml/min (>90); GFR NON AFRICAN-AMERICAN > 60.0 ml/min; HEMATOCRIT 32.2 % (41.0-60); LYMPHOCYTE ABSOLUTE 1.3 Th/cmm (1.5-3.0); MEAN CELL VOLUME 90.8 fl (81-100); MEAN CORPUSCULAR HGB CONC 34.2 pg (28.0-36.0); MEAN PLATELET VOLUME 10.1 fl; MONOCYTE ABSOLUTE 0.3 Th/cmm (0.3-1.0); NEUTROPHILE ABSOLUTE 4.2 Th/cmm (1.8-8.0); PHOSPHOROUS 2.9 mg/dL (2.5-5.0); PLATELET COUNT 392 Th/cmm (150-400); RED BLOOD COUNT 3.55 Mil/cmm (3.80-5.20); RED CELL DISTRIBUTION WIDTH 15.5 % (11.5-20.0); SODIUM SERUM 143 mEq/L (136-145); WHITE BLOOD COUNT 5.9 Th/cmm (4.8-10.8)
[2017-10-04 08:02] LABS: GLUCOSE 28 mg/dL (70-105); POTASSIUM SERUM 2.9 mEq/L (3.5-5.1)
[2017-10-04] MEDS: Dextrose 50% 50 mL Abboject IVP PRN (08:20)
[2017-10-04] MEDS: Dextrose 5% 1,000 ML IV SCH (08:26)
[2017-10-04] MEDS: KCL 20mEq/100mL Premix 40 MEQ/200 ML PIGGYBACK IV SCH ×2 (08:46→10:48)
[2017-10-04] MEDS: Ammonium Lactate Cream 140 gm Tube TP SCH (08:53)
[2017-10-04] MEDS: Theophylline 100 mg ER Tab PO SCH ×2 (08:54→16:32)
--- NOTE | 2017-10-04 16:37 | Internal Medicine Prog Note ---
Internal Medicine Subjective - Subjective Service Date: 10/04/17 Patient is:: awake, non-interactive, in bed, confused, other Patient Complaints of:: congestion Per staff patient has:: poor appetite, poor oral intake Internal Medicine Objective - Results Result Diagrams: 10/04/17 06:37 10/04/17 06:37 Recent Labs: Laboratory Last Values WBC 5.9 Th/cmm (4.8-10.8) 10/04/17 06:37 RBC 3.55 Mil/cmm (3.80-5.20) L 10/04/17 06:37 Hgb 11.0 gm/dL (12-16) L 10/04/17 06:37 Hct 32.2 % (41.0-60) L 10/04/17 06:37 MCV 90.8 fl (81-100) 10/04/17 06:37 MCH 31.0 pg (27.0-31.0) 10/04/17 06:37 MCHC Differential 34.2 pg (28.0-36.0) 10/04/17 06:37 RDW 15.5 % (11.5-20.0) 10/04/17 06:37 Plt Count 392 Th/cmm (150-400) 10/04/17 06:37 MPV 10.1 fl 10/04/17 06:37 Neutrophils % 72.3 % (40.0-80.0) 10/04/17 06:37 Lymphocytes % 21.3 % (20.0-50.0) 10/04/17 06:37 Monocytes % 4.7 % (2.0-10.0) 10/04/17 06:37 Eosinophils % 1.0 % (0.0-5.0) 10/04/17 06:37 Basophils % 0.7 % (0.0-2.0) 10/04/17 06:37 Sodium 143 mEq/L (136-145) 10/04/17 06:37 Potassium 2.9 mEq/L (3.5-5.1) L* D 10/04/17 06:37 Chloride 106 mEq/L (98-107) 10/04/17 06:37 Carbon Dioxide 29.6 mEq/L (21.0-31.0) 10/04/17 06:37 Anion Gap 10.3 (7.0-16.0) 10/04/17 06:37 BUN 18 mg/dL (7-25) 10/04/17 06:37 Creatinine 0.8 mg/dL (0.6-1.2) 10/04/17 06:37 Est GFR ( Amer) > 60.0 ml/min (>90) 10/04/17 06:37 Est GFR (Non-Af Amer) > 60.0 ml/min 10/04/17 06:37 BUN/Creatinine Ratio 22.5 10/04/17 06:37 Glucose 28 mg/dL (70-105) L* 10/04/17 06:37 POC Glucose 123 MG/DL (70 - 105) H 10/04/17 16:24 Hemoglobin A1c % 5.2 % (4.0-6.0) 09/23/17 05:15 Calcium 10.1 mg/dL (8.6-10.3) 10/04/17 06:37 Phosphorus 2.9 mg/dL (2.5-5.0) 10/04/17 06:37 Magnesium 2.0 mg/dL (1.9-2.7) 10/04/17 06:37 Total Bilirubin 0.7 mg/dL (0.3-1.0) 10/01/17 05:40 Direct Bilirubin 0.11 mg/dL (0.0-0.2) 10/01/17 05:40 AST 32 U/L (13-39) 10/01/17 05:40 ALT 31 U/L (7-52) 10/01/17 05:40 Alkaline Phosphatase 64 U/L (34-104) 10/01/17 05:40 Ammonia 43 umol/L (16-53) 09/01/17 05:40 B-Natriuretic Peptide 71.5 pg/mL (5.0-100.0) 10/04/17 06:37 Total Protein 6.5 gm/dL (6.0-8.3) 10/01/17 05:40 Albumin 3.5 gm/dL (3.7-5.3) L 10/01/17 05:40 Globulin 3.0 gm/dL 10/01/17 05:40 Albumin/Globulin Ratio 1.2 (1.0-1.8) 10/01/17 05:40 Prealbumin 21 mg/dL (10-36) 10/01/17 05:40 Triglycerides 76 mg/dL (<150) 10/01/17 05:40 Cholesterol 140 mg/dL (<200) 10/01/17 05:40 Vitamin B12 790 pg/mL (232-1245) 09/01/17 05:40 Folic Acid 4.8 ng/mL (>3.0) 09/01/17 05:40 TSH 1.04 uIU/ml (0.34-5.60) 09/29/17 06:16 Urine Source [place] 08/29/17 13:45 Urine Color YELLOW 08/29/17 13:45 Urine Clarity SLIGHTLY HAZY (CLEAR) 08/29/17 13:45 Urine pH 7.5 (4.6 - 8.0) 08/29/17 13:45 Ur Specific [place] 1.010 (1.005-1.030) 08/29/17 13:45 Urine Protein NEGATIVE mg/dL (NEGATIVE) 08/29/17 13:45 Urine Glucose (UA) NEGATIVE mg/dL (NEGATIVE) 08/29/17 13:45 Urine Ketones NEGATIVE mg/dL (NEGATIVE) 08/29/17 13:45 Urine Blood TRACE (NEGATIVE) 08/29/17 13:45 Urine Nitrate NEGATIVE (NEGATIVE) 08/29/17 13:45 Urine Bilirubin NEGATIVE (NEGATIVE) 08/29/17 13:45 Urine Urobilinogen 0.2 E.U./dL (0.2 - 1.0) 08/29/17 13:45 Ur Leukocyte Esterase NEGATIVE (NEGATIVE) 08/29/17 13:45 Urine RBC 0-2 /hpf (0-5) 08/29/17 13:45 Urine WBC 0-2 /hpf (0-5) 08/29/17 13:45 Ur Epithelial Cells OCCASIONAL /lpf (FEW) 08/29/17 13:45 Urine Bacteria FEW /hpf (NONE SEEN) 08/29/17 13:45 Vancomycin Trough < 2.0 ug/mL (5-10) L 09/17/17 21:34 Hepatitis A IgM Ab Negative (Negative) 09/24/17 05:55 Hep Bs Antigen Negative (Negative) 09/24/17 05:55 Hep B Core IgM Ab Negative (Negative) 09/24/17 05:55 Hepatitis C Antibody 0.1 s/co ratio (0.0-0.9) 09/24/17 05:55 HIV 1&2 Antibody Screen NEGATIVE (NEG) 09/24/17 05:55 - Physical Exam Vitals and I&O: Vital Signs Temp 97.7 F 10/04/17 13:35 Pulse 80 10/04/17 13:35 Resp 18 10/04/17 13:35 BP 134/70 10/04/17 13:35 Pulse Ox 100 10/04/17 13:35 Intake & Output 10/03/17 10/04/17 10/04/17 18:59 06:59 18:59 Intake Total 2876 194.167 Output Total 200 650 Balance 2676 -650 194.167 Weight (lbs) 96 lb 3.2 oz 95 lb 12.8 oz Intake: Intake, IV Amount 1916 194.167 KCL 20mEq/100mL Premix 40 194.167 meq In 200 ml @ 50 mls/ hr IV Q2H FOZIA Rx#: [id number] Multivitamin Inj 10 ml In 1916 Dextrose 70% 1,160 ml In Amino Acids 8.5% 500 ml In Intralipids 20% 250 ml @ 80 mls/hr IV .Q24H FOZIA Rx#:[id number] TPN/PPN 960 Output: Urine 200 650 Other: # Bowel Movements 1 Weight Source Bedscale Bedscale Active Medications: Current Medications Acetaminophen (Tylenol) 650 mg GT Q4HR PRN PRN Reason: Pain or Fever >101 Stop: 10/23/17 19:40 Albuterol Sulfate (Albuterol 2.5mg/3ml Neb Ud) 2.5 mg HHN Q4HRT PRN PRN Reason: Shortness of Breath Stop: 10/23/17 19:40 Artificial Tears (Artificial Tears Ophth Soln) 1 drop EACH EYE Q2H PRN PRN Reason: Dry Eye Stop: 11/10/17 10:46 Bisacodyl (Dulcolax 10 Mg Supp) 10 mg RC DAILY PRN PRN Reason: Constipation Stop: 10/23/17 19:40 Dextrose (D50w) 50 ml IVP PRN PRN; Protocol PRN Reason: hypoglycemia protocol Stop: 11/04/17 12:57 Last Admin: 10/04/17 08:20 Dose: 50 ml Docusate Sodium (Colace) 100 mg GT DAILY PRN PRN Reason: CONSTIPATION Stop: 10/24/17 08:59 Last Admin: 08/27/17 17:38 Dose: 100 mg Dextrose (D5w) 1,000 mls @ 50 mls/hr IV .Q20H FOZIA Stop: 11/21/17 17:29 Last Admin: 10/04/17 08:26 Dose: 50 mls/hr Multivitamins/Minerals 10 ml/Dextrose/ Amino Acids/Electrolytes/ Fat Emulsion Intravenous 1,920 mls @ 80 mls/hr IV .Q24H FOZIA Stop: 10/30/17 15:59 Last Admin: 10/03/17 15:24 Dose: 80 mls/hr Insulin Aspart (Novolog Insulin Sliding Scale) 0 units SUBQ Q6H FOZIA; Protocol Stop: 11/28/17 17:59 Last Admin: 10/04/17 12:34 Dose: Not Given Ipratropium [place] (Atrovent Neb 0.5mg/2.5ml) 0.5 mg HHN Q4HRT PRN PRN Reason: Shortness of Breath or Wheeze Stop: 10/23/17 19:40 Lactic Acid (Lac-Hydrin Cream) 1 appl TP DAILY [facility]IA Stop: 10/24/17 08:59 Last Admin: 10/04/17 08:53 Dose: 1 appl Levothyroxine Sodium (Synthroid) 0.05 mg IVP QDAC FOZIA Stop: 11/23/17 07:29 Last Admin: 10/04/17 06:30 Dose: Not Given Lorazepam (Ativan) 1 mg IV Q4H PRN; Protocol PRN Reason: Agitation Stop: 11/19/17 07:48 Last Admin: 09/20/17 17:05 Dose: 1 mg Magnesium Hydroxide (Milk Of Magnesia) 30 ml PO HS PRN PRN Reason: Constipation Stop: 10/23/17 19:40 Megestrol Acetate (Megace) 400 mg PO BID [facility] Stop: 10/24/17 08:59 Last Admin: 10/04/17 16:32 Dose: Not Given Midodrine (Proamatine) 2.5 mg PO TID [facility] Stop: 11/20/17 20:59 Last Admin: 10/04/17 13:47 Dose: Not Given Mirtazapine (Remeron) 15 mg PO HS FOZIA; Protocol Stop: 10/30/17 20:59 Last Admin: 10/03/17 20:25 Dose: Not Given Miscellaneous (Vte Chemical Prophylaxis Screen/ Admission) 1 ea MC PRN PRN PRN Reason: PROTOCOL Stop: 10/24/17 09:26 Miscellaneous (Probiotic Screen) 1 ea MC PRN PRN PRN Reason: PROTOCOL Stop: 10/29/17 08:59 Miscellaneous (Ppn Per Pharmacy) 1 ea MC PRN PRN PRN Reason: PPN PER RX Stop: 11/11/17 14:29 Olanzapine (Zyprexa) 5 mg PO HS FOZIA; Protocol Stop: 10/23/17 20:59 Last Admin: 10/03/17 20:25 Dose: Not Given Sodium Phosphate (Fleet Enema) 135 ml RC DAILY PRN PRN Reason: Constipation Stop: 10/23/17 19:40 Theophylline (Elijah-Dur) 200 mg PO BID [facility] Stop: 11/23/17 16:59 Last Admin: 10/04/17 16:32 Dose: Not Given General: demented, disheveled, thin, cachectic HEENT: NC/AT, PERRLA Neck: Supple, No JVD, No LAD Lungs: chest deformity present Cardiovascular: RRR, Normal S1, Normal S2, with murmur Abdomen: soft, non-tender, thin, positive bowel sound Extremities: excoriation, contracture, deformity Neurological: disorganized, muscle weakness, unable to follow command - Procedures Procedures: Procedures Procedure Code Date RECREATIONAL THERAPY 93.81 11/09/10 Internal Medicine Assmt/Plan - Assessment Assessment: Failure to thrive poor p.o. intake severe protein-caloric malnutrition diabetes congestive heart failure acute on chronic renal insufficiency schizoaffective disorder hypertension hypokalemia dementia legally blind leukocytosis bedbound. noncompliant - Plan Plan: peg placement on Friday continue with PPn for nutritional support ivf for hydration monitor electrolytes continue current plan of care Nutritional Asmnt/Malnutr-PDOC - Dietary Evaluation Malnutrition Findings (Please click <Entered> for more info): Nutritional Asmnt/Malnutrition Start: 08/25/17 17: 28 Text: Status: Complete Freq: Protocol: Document 08/25/17 17:28 REDD (Rec: 08/25/17 17:32 REDD [email or web address]) Nutritional Asmnt/Malnutrition Patient General Information Nutritional Screening High Risk Consult Diagnosis dehydration, FTT Pertinent Medical Hx/Surgical Hx DM, CHF, kidney failure, schizophrenia, HTN, dementia, legally blind, noncompliance Subjective Information Consult received for poor oral intake. Pt seen resting in bed at time of visit. Per nurse note, pt refused breakfast and lunch today. Pt on calorie count noted. Current Diet Order/ Nutrition Support pureed, nectar thin liquid Pertinent Medications D5-0.45ns, colace, novolog, megace Pertinent Labs 08/25 K 3.0, glucose 106 Nutritional Hx/Data Height 5 ft 6 in Height (Calculated Centimeters) 167.6 Current Weight (lbs) 111 lb Weight (Calculated Kilograms) 50.3 Weight (Calculated Grams) 54290.8 [place] Body Weight 130 Body Mass Index (BMI) 17.9 Weight Status Underweight GI Symptoms GI Symptoms None Last BM none Skin Integrity/Comment: redness Estimated Nutritional Goals BEE in Kcals: Using Current wt Calories/Kcals/Kg 30-35 Kcals Calculated 9302-5953 Protein: Using Current wt Protein g/k.2 Protein Calculated 60 Fluid: ml 1500-1750ml (1ml/kcal) Nutritional Problem 1. Problem Problem inadequate food intake Etiology pt refusing to eat Signs/Symptoms: PO intake <25% since admission Malnutrition Alert Muscle Mass (Non-Severe) Mild Depletion Is there a minimum of two criteria No selected? Query Text:Check all the applicable criteria. A minimum of two criteria are recommended for diagnosis of either severe or non-severe malnutrition. Malnutrition Related to Morbid Obesity Malnutrition related to morbid obesity No Intervention/Recommendation Comments 1. Continue with current diet as ordered. Assist pt with meals and encourage oral intake. 2. Monitor PO intake, wt, labs and skin integrity 3. F/U as high risk in 2-3 days, 08/27-08/28 Expected Outcomes/Goals Expected Outcomes/Goals 1. PO intake to meet at least 75% of nutritional needs. 2. Wt stability, skin to remain intact, labs to approach WNL.
[2017-10-04] MEDS: TPN 8.5%-70% CUSTOM IV SCH (16:38)
[2017-10-05] MEDS: INSULIN ASPART SLIDING SCALE 100 UNITS/ML UNIT SUBQ SCH ×4 (03:10→19:33)
[2017-10-05 06:42] LABS: % BASOPHILS 0.8 % (0.0-2.0); % EOSINOPHILS 1.4 % (0.0-5.0); % LYMPHOCYTES 18.6 % (20.0-50.0); % NEUTROPHILS 72.2 % (40.0-80.0); BASOPHILE ABSOLUTE 0.1 Th/cumm (0-0.2); EOSINOPHILE ABSOLUTE 0.1 Th/cmm (0.1-0.4); HEMATOCRIT 28.7 % (41.0-60); HEMOGLOBIN 9.6 gm/dL (12-16); LYMPHOCYTE ABSOLUTE 1.3 Th/cmm (1.5-3.0); MEAN CELL VOLUME 92.8 fl (81-100); MEAN CORPUSCULAR HEMOGLOBIN 31.1 pg (27.0-31.0); MEAN CORPUSCULAR HGB CONC 33.5 pg (28.0-36.0); MEAN PLATELET VOLUME 10.2 fl; MONOCYTE ABSOLUTE 0.5 Th/cmm (0.3-1.0); NEUTROPHILE ABSOLUTE 5.1 Th/cmm (1.8-8.0); RED BLOOD COUNT 3.09 Mil/cmm (3.80-5.20); RED CELL DISTRIBUTION WIDTH 15.4 % (11.5-20.0)
[2017-10-05 07:00] LABS: PLATELET COUNT 293 Th/cmm (150-400); WHITE BLOOD COUNT 7.1 Th/cmm (4.8-10.8)
[2017-10-05 07:02] LABS: ANION GAP 9.2 (7.0-16.0); BUN - UREA NITROGEN 17 mg/dL (7-25); CALCIUM SERUM 9.5 mg/dL (8.6-10.3); CARBON DIOXIDE 28.4 mEq/L (21.0-31.0); CHLORIDE 108 mEq/L (98-107); CREATININE - SERUM 0.8 mg/dL (0.6-1.2); GFR AFRICAN-AMERICAN > 60.0 ml/min (>90); GFR NON AFRICAN-AMERICAN > 60.0 ml/min; PHOSPHOROUS 3.5 mg/dL (2.5-5.0); POTASSIUM SERUM 3.6 mEq/L (3.5-5.1); SODIUM SERUM 142 mEq/L (136-145)
[2017-10-05 07:15] LABS: GLUCOSE 129 mg/dL (70-105)
[2017-10-05] MEDS: Ammonium Lactate Cream 140 gm Tube TP SCH (09:36)
[2017-10-05] MEDS: Theophylline 100 mg ER Tab PO SCH ×2 (09:36→16:27)
--- NOTE | 2017-10-05 12:16 | GI Progress Note ---
Subjective - Review of Systems Service Date: 10/05/17 Subjective: Pt lying in bed comfortably, consent signed for anesthesia, but confirming consent for EGD Objective - Results Result Diagrams: 10/05/17 06:09 10/05/17 06:09 Recent Labs: Laboratory Last Values WBC 7.1 Th/cmm (4.8-10.8) D 10/05/17 06:09 RBC 3.09 Mil/cmm (3.80-5.20) L 10/05/17 06:09 Hgb 9.6 gm/dL (12-16) L 10/05/17 06:09 Hct 28.7 % (41.0-60) L 10/05/17 06:09 MCV 92.8 fl (81-100) 10/05/17 06:09 MCH 31.1 pg (27.0-31.0) H 10/05/17 06:09 MCHC Differential 33.5 pg (28.0-36.0) 10/05/17 06:09 RDW 15.4 % (11.5-20.0) 10/05/17 06:09 Plt Count 293 Th/cmm (150-400) D 10/05/17 06:09 MPV 10.2 fl 10/05/17 06:09 Neutrophils % 72.2 % (40.0-80.0) 10/05/17 06:09 Lymphocytes % 18.6 % (20.0-50.0) L 10/05/17 06:09 Monocytes % 7.0 % (2.0-10.0) 10/05/17 06:09 Eosinophils % 1.4 % (0.0-5.0) 10/05/17 06:09 Basophils % 0.8 % (0.0-2.0) 10/05/17 06:09 Sodium 142 mEq/L (136-145) 10/05/17 06:09 Potassium 3.6 mEq/L (3.5-5.1) 10/05/17 06:09 Chloride 108 mEq/L (98-107) H 10/05/17 06:09 Carbon Dioxide 28.4 mEq/L (21.0-31.0) 10/05/17 06:09 Anion Gap 9.2 (7.0-16.0) 10/05/17 06:09 BUN 17 mg/dL (7-25) 10/05/17 06:09 Creatinine 0.8 mg/dL (0.6-1.2) 10/05/17 06:09 Est GFR ( Amer) > 60.0 ml/min (>90) 10/05/17 06:09 Est GFR (Non-Af Amer) > 60.0 ml/min 10/05/17 06:09 BUN/Creatinine Ratio 21.3 10/05/17 06:09 Glucose 129 mg/dL (70-105) H D 10/05/17 06:09 POC Glucose 119 MG/DL (70 - 105) H 10/05/17 06:09 Hemoglobin A1c % 5.2 % (4.0-6.0) 09/23/17 05:15 Calcium 9.5 mg/dL (8.6-10.3) 10/05/17 06:09 Phosphorus 3.5 mg/dL (2.5-5.0) 10/05/17 06:09 Magnesium 2.1 mg/dL (1.9-2.7) 10/05/17 06:09 Total Bilirubin 0.7 mg/dL (0.3-1.0) 10/01/17 05:40 Direct Bilirubin 0.11 mg/dL (0.0-0.2) 10/01/17 05:40 AST 32 U/L (13-39) 10/01/17 05:40 ALT 31 U/L (7-52) 10/01/17 05:40 Alkaline Phosphatase 64 U/L (34-104) 10/01/17 05:40 Ammonia 43 umol/L (16-53) 09/01/17 05:40 B-Natriuretic Peptide 71.5 pg/mL (5.0-100.0) 10/04/17 06:37 Total Protein 6.5 gm/dL (6.0-8.3) 10/01/17 05:40 Albumin 3.5 gm/dL (3.7-5.3) L 10/01/17 05:40 Globulin 3.0 gm/dL 10/01/17 05:40 Albumin/Globulin Ratio 1.2 (1.0-1.8) 10/01/17 05:40 Prealbumin 21 mg/dL (10-36) 10/01/17 05:40 Triglycerides 76 mg/dL (<150) 10/01/17 05:40 Cholesterol 140 mg/dL (<200) 10/01/17 05:40 Vitamin B12 790 pg/mL (232-1245) 09/01/17 05:40 Folic Acid 4.8 ng/mL (>3.0) 09/01/17 05:40 TSH 1.04 uIU/ml (0.34-5.60) 09/29/17 06:16 Urine Source [place] 08/29/17 13:45 Urine Color YELLOW 08/29/17 13:45 Urine Clarity SLIGHTLY HAZY (CLEAR) 08/29/17 13:45 Urine pH 7.5 (4.6 - 8.0) 08/29/17 13:45 Ur Specific [place] 1.010 (1.005-1.030) 08/29/17 13:45 Urine Protein NEGATIVE mg/dL (NEGATIVE) 08/29/17 13:45 Urine Glucose (UA) NEGATIVE mg/dL (NEGATIVE) 08/29/17 13:45 Urine Ketones NEGATIVE mg/dL (NEGATIVE) 08/29/17 13:45 Urine Blood TRACE (NEGATIVE) 08/29/17 13:45 Urine Nitrate NEGATIVE (NEGATIVE) 08/29/17 13:45 Urine Bilirubin NEGATIVE (NEGATIVE) 08/29/17 13:45 Urine Urobilinogen 0.2 E.U./dL (0.2 - 1.0) 08/29/17 13:45 Ur Leukocyte Esterase NEGATIVE (NEGATIVE) 08/29/17 13:45 Urine RBC 0-2 /hpf (0-5) 08/29/17 13:45 Urine WBC 0-2 /hpf (0-5) 08/29/17 13:45 Ur Epithelial Cells OCCASIONAL /lpf (FEW) 08/29/17 13:45 Urine Bacteria FEW /hpf (NONE SEEN) 08/29/17 13:45 Vancomycin Trough < 2.0 ug/mL (5-10) L 09/17/17 21:34 Hepatitis A IgM Ab Negative (Negative) 09/24/17 05:55 Hep Bs Antigen Negative (Negative) 09/24/17 05:55 Hep B Core IgM Ab Negative (Negative) 09/24/17 05:55 Hepatitis C Antibody 0.1 s/co ratio (0.0-0.9) 09/24/17 05:55 HIV 1&2 Antibody Screen NEGATIVE (NEG) 09/24/17 05:55 - Physical Exam Vitals and I&O: Vital Signs Temp 97.4 F 10/05/17 09:35 Pulse 84 10/05/17 09:35 Resp 20 10/05/17 09:35 BP 138/74 10/05/17 09:35 Pulse Ox 99 10/05/17 09:35 Intake & Output 10/04/17 10/05/17 10/05/17 18:59 06:59 18:59 Intake Total 2114.167 1020 Output Total 1675 Balance 2114.167 -655 Weight (lbs) 43.091 kg Intake: Intake, IV Amount 2114.167 KCL 20mEq/100mL Premix 40 194.167 meq In 200 ml @ 50 mls/ hr IV Q2H FOZIA Rx#: [id number] Multivitamin Inj 10 ml In 1920 Dextrose 70% 1,160 ml In Amino Acids 8.5% 500 ml In Intralipids 20% 250 ml @ 80 mls/hr IV .Q24H FOZIA Rx#:[id number] Oral 0 TPN/PPN 960 Other 60 Output: Urine 1675 Other: Weight Source Bedscale Active Medications: Current Medications Acetaminophen (Tylenol) 650 mg GT Q4HR PRN PRN Reason: Pain or Fever >101 Stop: 10/23/17 19:40 Albuterol Sulfate (Albuterol 2.5mg/3ml Neb Ud) 2.5 mg HHN Q4HRT PRN PRN Reason: Shortness of Breath Stop: 10/23/17 19:40 Artificial Tears (Artificial Tears Ophth Soln) 1 drop EACH EYE Q2H PRN PRN Reason: Dry Eye Stop: 11/10/17 10:46 Bisacodyl (Dulcolax 10 Mg Supp) 10 mg RC DAILY PRN PRN Reason: Constipation Stop: 10/23/17 19:40 Dextrose (D50w) 50 ml IVP PRN PRN; Protocol PRN Reason: hypoglycemia protocol Stop: 11/04/17 12:57 Last Admin: 10/04/17 08:20 Dose: 50 ml Docusate Sodium (Colace) 100 mg GT DAILY PRN PRN Reason: CONSTIPATION Stop: 10/24/17 08:59 Last Admin: 08/27/17 17:38 Dose: 100 mg Dextrose (D5w) 1,000 mls @ 50 mls/hr IV .Q20H FOZIA Stop: 11/21/17 17:29 Last Admin: 10/04/17 08:26 Dose: 50 mls/hr Multivitamins/Minerals 10 ml/Dextrose/ Amino Acids/Electrolytes/ Fat Emulsion Intravenous 1,920 mls @ 80 mls/hr IV .Q24H FOZIA Stop: 10/30/17 15:59 Last Admin: 10/04/17 16:38 Dose: 80 mls/hr Insulin Aspart (Novolog Insulin Sliding Scale) 0 units SUBQ Q6H FOZIA; Protocol Stop: 11/28/17 17:59 Last Admin: 10/05/17 07:35 Dose: Not Given Ipratropium [place] (Atrovent Neb 0.5mg/2.5ml) 0.5 mg HHN Q4HRT PRN PRN Reason: Shortness of Breath or Wheeze Stop: 10/23/17 19:40 Lactic Acid (Lac-Hydrin Cream) 1 appl TP DAILY FOIZA Stop: 10/24/17 08:59 Last Admin: 10/05/17 09:36 Dose: Not Given Levothyroxine Sodium (Synthroid) 0.05 mg IVP QDAC FOZIA Stop: 11/23/17 07:29 Last Admin: 10/05/17 07:35 Dose: Not Given Lorazepam (Ativan) 1 mg IV Q4H PRN; Protocol PRN Reason: Agitation Stop: 11/19/17 07:48 Last Admin: 10/04/17 22:55 Dose: 1 mg Magnesium Hydroxide (Milk Of Magnesia) 30 ml PO HS PRN PRN Reason: Constipation Stop: 10/23/17 19:40 Megestrol Acetate (Megace) 400 mg PO BID FOZIA Stop: 10/24/17 08:59 Last Admin: 10/05/17 09:36 Dose: Not Given Midodrine (Proamatine) 2.5 mg PO TID FOZIA Stop: 11/20/17 20:59 Last Admin: 10/05/17 09:36 Dose: Not Given Mirtazapine (Remeron) 15 mg PO HS FOZIA; Protocol Stop: 10/30/17 20:59 Last Admin: 10/04/17 20:45 Dose: Not Given Miscellaneous (Vte Chemical Prophylaxis Screen/ Admission) 1 ea MC PRN PRN PRN Reason: PROTOCOL Stop: 10/24/17 09:26 Miscellaneous (Probiotic Screen) 1 ea MC PRN PRN PRN Reason: PROTOCOL Stop: 10/29/17 08:59 Miscellaneous (Ppn Per Pharmacy) 1 ea MC PRN PRN PRN Reason: PPN PER RX Stop: 11/11/17 14:29 Olanzapine (Zyprexa) 5 mg PO HS FOZIA; Protocol Stop: 10/23/17 20:59 Last Admin: 10/04/17 20:45 Dose: Not Given Sodium Phosphate (Fleet Enema) 135 ml RC DAILY PRN PRN Reason: Constipation Stop: 10/23/17 19:40 Theophylline (Elijah-Dur) 200 mg PO BID FOZIA Stop: 11/23/17 16:59 Last Admin: 10/05/17 09:36 Dose: Not Given General: No acute distress Cardiovascular: Regular rate Lungs: Clear to auscultation Abdomen: Soft, no Tender - Procedures Procedures: Procedures Procedure Code Date RECREATIONAL THERAPY 93.81 11/09/10 Assessment/Plan - Assessment Assessment: 67 YO FEMALE WITH ANOREXIA AND DYSPHAGIA PENDING PEG PLACEMENT. ON [employer] TPN. LIKELY HAS DEMENTIA. 1.CONT ENCOURAGE PO DIET [place]. 2.PENDING PEG PLACEMENT 3. CONT TPN FOR NOW. Plan for PEG tomorrow with anesthesia.
--- NOTE | 2017-10-05 14:42 | Internal Medicine Prog Note ---
Internal Medicine Subjective - Subjective Service Date: 10/05/17 Patient is:: awake, non-interactive, in bed, confused, other Patient Complaints of:: congestion Per staff patient has:: poor appetite, poor oral intake Internal Medicine Objective - Results Result Diagrams: 10/05/17 06:09 10/05/17 06:09 Recent Labs: Laboratory Last Values WBC 7.1 Th/cmm (4.8-10.8) D 10/05/17 06:09 RBC 3.09 Mil/cmm (3.80-5.20) L 10/05/17 06:09 Hgb 9.6 gm/dL (12-16) L 10/05/17 06:09 Hct 28.7 % (41.0-60) L 10/05/17 06:09 MCV 92.8 fl (81-100) 10/05/17 06:09 MCH 31.1 pg (27.0-31.0) H 10/05/17 06:09 MCHC Differential 33.5 pg (28.0-36.0) 10/05/17 06:09 RDW 15.4 % (11.5-20.0) 10/05/17 06:09 Plt Count 293 Th/cmm (150-400) D 10/05/17 06:09 MPV 10.2 fl 10/05/17 06:09 Neutrophils % 72.2 % (40.0-80.0) 10/05/17 06:09 Lymphocytes % 18.6 % (20.0-50.0) L 10/05/17 06:09 Monocytes % 7.0 % (2.0-10.0) 10/05/17 06:09 Eosinophils % 1.4 % (0.0-5.0) 10/05/17 06:09 Basophils % 0.8 % (0.0-2.0) 10/05/17 06:09 Sodium 142 mEq/L (136-145) 10/05/17 06:09 Potassium 3.6 mEq/L (3.5-5.1) 10/05/17 06:09 Chloride 108 mEq/L (98-107) H 10/05/17 06:09 Carbon Dioxide 28.4 mEq/L (21.0-31.0) 10/05/17 06:09 Anion Gap 9.2 (7.0-16.0) 10/05/17 06:09 BUN 17 mg/dL (7-25) 10/05/17 06:09 Creatinine 0.8 mg/dL (0.6-1.2) 10/05/17 06:09 Est GFR ( Amer) > 60.0 ml/min (>90) 10/05/17 06:09 Est GFR (Non-Af Amer) > 60.0 ml/min 10/05/17 06:09 BUN/Creatinine Ratio 21.3 10/05/17 06:09 Glucose 129 mg/dL (70-105) H D 10/05/17 06:09 POC Glucose 71 MG/DL (70 - 105) 10/05/17 11:37 Hemoglobin A1c % 5.2 % (4.0-6.0) 09/23/17 05:15 Calcium 9.5 mg/dL (8.6-10.3) 10/05/17 06:09 Phosphorus 3.5 mg/dL (2.5-5.0) 10/05/17 06:09 Magnesium 2.1 mg/dL (1.9-2.7) 10/05/17 06:09 Total Bilirubin 0.7 mg/dL (0.3-1.0) 10/01/17 05:40 Direct Bilirubin 0.11 mg/dL (0.0-0.2) 10/01/17 05:40 AST 32 U/L (13-39) 10/01/17 05:40 ALT 31 U/L (7-52) 10/01/17 05:40 Alkaline Phosphatase 64 U/L (34-104) 10/01/17 05:40 Ammonia 43 umol/L (16-53) 09/01/17 05:40 B-Natriuretic Peptide 71.5 pg/mL (5.0-100.0) 10/04/17 06:37 Total Protein 6.5 gm/dL (6.0-8.3) 10/01/17 05:40 Albumin 3.5 gm/dL (3.7-5.3) L 10/01/17 05:40 Globulin 3.0 gm/dL 10/01/17 05:40 Albumin/Globulin Ratio 1.2 (1.0-1.8) 10/01/17 05:40 Prealbumin 21 mg/dL (10-36) 10/01/17 05:40 Triglycerides 76 mg/dL (<150) 10/01/17 05:40 Cholesterol 140 mg/dL (<200) 10/01/17 05:40 Vitamin B12 790 pg/mL (232-1245) 09/01/17 05:40 Folic Acid 4.8 ng/mL (>3.0) 09/01/17 05:40 TSH 1.04 uIU/ml (0.34-5.60) 09/29/17 06:16 Urine Source [place] 08/29/17 13:45 Urine Color YELLOW 08/29/17 13:45 Urine Clarity SLIGHTLY HAZY (CLEAR) 08/29/17 13:45 Urine pH 7.5 (4.6 - 8.0) 08/29/17 13:45 Ur Specific [place] 1.010 (1.005-1.030) 08/29/17 13:45 Urine Protein NEGATIVE mg/dL (NEGATIVE) 08/29/17 13:45 Urine Glucose (UA) NEGATIVE mg/dL (NEGATIVE) 08/29/17 13:45 Urine Ketones NEGATIVE mg/dL (NEGATIVE) 08/29/17 13:45 Urine Blood TRACE (NEGATIVE) 08/29/17 13:45 Urine Nitrate NEGATIVE (NEGATIVE) 08/29/17 13:45 Urine Bilirubin NEGATIVE (NEGATIVE) 08/29/17 13:45 Urine Urobilinogen 0.2 E.U./dL (0.2 - 1.0) 08/29/17 13:45 Ur Leukocyte Esterase NEGATIVE (NEGATIVE) 08/29/17 13:45 Urine RBC 0-2 /hpf (0-5) 08/29/17 13:45 Urine WBC 0-2 /hpf (0-5) 08/29/17 13:45 Ur Epithelial Cells OCCASIONAL /lpf (FEW) 08/29/17 13:45 Urine Bacteria FEW /hpf (NONE SEEN) 08/29/17 13:45 Vancomycin Trough < 2.0 ug/mL (5-10) L 09/17/17 21:34 Hepatitis A IgM Ab Negative (Negative) 09/24/17 05:55 Hep Bs Antigen Negative (Negative) 09/24/17 05:55 Hep B Core IgM Ab Negative (Negative) 09/24/17 05:55 Hepatitis C Antibody 0.1 s/co ratio (0.0-0.9) 09/24/17 05:55 HIV 1&2 Antibody Screen NEGATIVE (NEG) 09/24/17 05:55 - Physical Exam Vitals and I&O: Vital Signs Temp 97.4 F 10/05/17 09:35 Pulse 84 10/05/17 09:35 Resp 20 10/05/17 09:35 BP 138/74 10/05/17 09:35 Pulse Ox 99 10/05/17 09:35 Intake & Output 10/04/17 10/05/17 10/05/17 18:59 06:59 18:59 Intake Total 2114.167 1020 Output Total 1675 Balance 2114.167 -655 Weight (lbs) 95 lb Intake: Intake, IV Amount 2114.167 KCL 20mEq/100mL Premix 40 194.167 meq In 200 ml @ 50 mls/ hr IV Q2H FOZIA Rx#: [id number] Multivitamin Inj 10 ml In 1920 Dextrose 70% 1,160 ml In Amino Acids 8.5% 500 ml In Intralipids 20% 250 ml @ 80 mls/hr IV .Q24H FOZIA Rx#:[id number] Oral 0 TPN/PPN 960 Other 60 Output: Urine 1675 Other: Weight Source Bedscale Active Medications: Current Medications Acetaminophen (Tylenol) 650 mg GT Q4HR PRN PRN Reason: Pain or Fever >101 Stop: 10/23/17 19:40 Albuterol Sulfate (Albuterol 2.5mg/3ml Neb Ud) 2.5 mg HHN Q4HRT PRN PRN Reason: Shortness of Breath Stop: 10/23/17 19:40 Artificial Tears (Artificial Tears Ophth Soln) 1 drop EACH EYE Q2H PRN PRN Reason: Dry Eye Stop: 11/10/17 10:46 Bisacodyl (Dulcolax 10 Mg Supp) 10 mg RC DAILY PRN PRN Reason: Constipation Stop: 10/23/17 19:40 Dextrose (D50w) 50 ml IVP PRN PRN; Protocol PRN Reason: hypoglycemia protocol Stop: 11/04/17 12:57 Last Admin: 10/04/17 08:20 Dose: 50 ml Docusate Sodium (Colace) 100 mg GT DAILY PRN PRN Reason: CONSTIPATION Stop: 10/24/17 08:59 Last Admin: 08/27/17 17:38 Dose: 100 mg Dextrose (D5w) 1,000 mls @ 50 mls/hr IV .Q20H FOZIA Stop: 11/21/17 17:29 Last Admin: 10/04/17 08:26 Dose: 50 mls/hr Multivitamins/Minerals 10 ml/Dextrose/ Amino Acids/Electrolytes/ Fat Emulsion Intravenous 1,920 mls @ 80 mls/hr IV .Q24H FOZIA Stop: 10/30/17 15:59 Last Admin: 10/04/17 16:38 Dose: 80 mls/hr Clindamycin Phosphate (Cleocin Pb) 600 mg in 50 mls @ 100 mls/hr IV X1 ONE Stop: 10/06/17 12:46 Insulin Aspart (Novolog Insulin Sliding Scale) 0 units SUBQ Q6H FOZIA; Protocol Stop: 11/28/17 17:59 Last Admin: 10/05/17 12:18 Dose: Not Given Ipratropium [place] (Atrovent Neb 0.5mg/2.5ml) 0.5 mg HHN Q4HRT PRN PRN Reason: Shortness of Breath or Wheeze Stop: 10/23/17 19:40 Lactic Acid (Lac-Hydrin Cream) 1 appl TP DAILY FOZIA Stop: 10/24/17 08:59 Last Admin: 10/05/17 09:36 Dose: Not Given Levothyroxine Sodium (Synthroid) 0.05 mg IVP QDAC FOZIA Stop: 11/23/17 07:29 Last Admin: 10/05/17 07:35 Dose: Not Given Lorazepam (Ativan) 1 mg IV Q4H PRN; Protocol PRN Reason: Agitation Stop: 11/19/17 07:48 Last Admin: 10/04/17 22:55 Dose: 1 mg Magnesium Hydroxide (Milk Of Magnesia) 30 ml PO HS PRN PRN Reason: Constipation Stop: 10/23/17 19:40 Megestrol Acetate (Megace) 400 mg PO BID FOZIA Stop: 10/24/17 08:59 Last Admin: 10/05/17 09:36 Dose: Not Given Midodrine (Proamatine) 2.5 mg PO TID FOZIA Stop: 11/20/17 20:59 Last Admin: 10/05/17 09:36 Dose: Not Given Mirtazapine (Remeron) 15 mg PO HS FOZIA; Protocol Stop: 10/30/17 20:59 Last Admin: 10/04/17 20:45 Dose: Not Given Miscellaneous (Vte Chemical Prophylaxis Screen/ Admission) 1 ea PRN PRN PRN Reason: PROTOCOL Stop: 10/24/17 09:26 Miscellaneous (Probiotic Screen) 1 ea PRN PRN PRN Reason: PROTOCOL Stop: 10/29/17 08:59 Miscellaneous (Ppn Per Pharmacy) 1 ea PRN PRN PRN Reason: PPN PER RX Stop: 11/11/17 14:29 Olanzapine (Zyprexa) 5 mg PO HS FOZIA; Protocol Stop: 10/23/17 20:59 Last Admin: 10/04/17 20:45 Dose: Not Given Sodium Phosphate (Fleet Enema) 135 ml RC DAILY PRN PRN Reason: Constipation Stop: 10/23/17 19:40 Theophylline (Elijah-Dur) 200 mg PO BID FOZIA Stop: 11/23/17 16:59 Last Admin: 10/05/17 09:36 Dose: Not Given General: demented, disheveled, thin, cachectic HEENT: NC/AT, PERRLA Neck: Supple, No JVD, No LAD Lungs: chest deformity present Cardiovascular: RRR, Normal S1, Normal S2, with murmur Abdomen: soft, non-tender, thin, positive bowel sound Extremities: excoriation, contracture, deformity Neurological: disorganized, muscle weakness, unable to follow command - Procedures Procedures: Procedures Procedure Code Date RECREATIONAL THERAPY 93.81 11/09/10 Internal Medicine Assmt/Plan - Assessment Assessment: Failure to thrive poor p.o. intake severe protein-caloric malnutrition diabetes congestive heart failure acute on chronic renal insufficiency schizoaffective disorder hypertension hypokalemia dementia legally blind leukocytosis bedbound. noncompliant - Plan Plan: peg placement tomorrow continue with PPn for nutritional support ivf for hydration monitor electrolytes continue current plan of care Nutritional Asmnt/Malnutr-PDOC - Dietary Evaluation Malnutrition Findings (Please click <Entered> for more info): Nutritional Asmnt/Malnutrition Start: 08/25/17 17: 28 Text: Status: Complete Freq: Protocol: Document 08/25/17 17:28 LCHENG (Rec: 08/25/17 17:32 [email or web address] [id number]) Nutritional Asmnt/Malnutrition Patient General Information Nutritional Screening High Risk Consult Diagnosis dehydration, FTT Pertinent Medical Hx/Surgical Hx DM, CHF, kidney failure, schizophrenia, HTN, dementia, legally blind, noncompliance Subjective Information Consult received for poor oral intake. Pt seen resting in bed at time of visit. Per nurse note, pt refused breakfast and lunch today. Pt on calorie count noted. Current Diet Order/ Nutrition Support pureed, nectar thin liquid Pertinent Medications D5-0.45ns, colace, novolog, megace Pertinent Labs 08/25 K 3.0, glucose 106 Nutritional Hx/Data Height 5 ft 6 in Height (Calculated Centimeters) 167.6 Current Weight (lbs) 111 lb Weight (Calculated Kilograms) 50.3 Weight (Calculated Grams) 76152.8 [place] Body Weight 130 Body Mass Index (BMI) 17.9 Weight Status Underweight GI Symptoms GI Symptoms None Last BM none Skin Integrity/Comment: redness Estimated Nutritional Goals BEE in Kcals: Using Current wt Calories/Kcals/Kg 30-35 Kcals Calculated 5940-4785 Protein: Using Current wt Protein g/k.2 Protein Calculated 60 Fluid: ml 1500-1750ml (1ml/kcal) Nutritional Problem 1. Problem Problem inadequate food intake Etiology pt refusing to eat Signs/Symptoms: PO intake <25% since admission Malnutrition Alert Muscle Mass (Non-Severe) Mild Depletion Is there a minimum of two criteria No selected? Query Text:Check all the applicable criteria. A minimum of two criteria are recommended for diagnosis of either severe or non-severe malnutrition. Malnutrition Related to Morbid Obesity Malnutrition related to morbid obesity No Intervention/Recommendation Comments 1. Continue with current diet as ordered. Assist pt with meals and encourage oral intake. 2. Monitor PO intake, wt, labs and skin integrity 3. F/U as high risk in 2-3 days, 08/27-08/28 Expected Outcomes/Goals Expected Outcomes/Goals 1. PO intake to meet at least 75% of nutritional needs. 2. Wt stability, skin to remain intact, labs to approach WNL.
[2017-10-05] MEDS: TPN 8.5%-70% CUSTOM IV SCH (16:17)
[2017-10-05] MEDS: Dextrose 5% 1,000 ML IV SCH (16:24)
[2017-10-06] MEDS: INSULIN ASPART SLIDING SCALE 100 UNITS/ML UNIT SUBQ SCH ×4 (00:18→18:33)
[2017-10-06 05:21] LABS: ANION GAP 13.4 (7.0-16.0); BUN - UREA NITROGEN 17 mg/dL (7-25); CALCIUM SERUM 9.7 mg/dL (8.6-10.3); CARBON DIOXIDE 25.4 mEq/L (21.0-31.0); CHLORIDE 104 mEq/L (98-107); CREATININE - SERUM 0.9 mg/dL (0.6-1.2); GFR AFRICAN-AMERICAN > 60.0 ml/min (>90); GFR NON AFRICAN-AMERICAN > 60.0 ml/min; GLUCOSE 84 mg/dL (70-105); MAGNESIUM 1.9 mg/dL (1.9-2.7); PHOSPHOROUS 3.6 mg/dL (2.5-5.0); POTASSIUM SERUM 3.8 mEq/L (3.5-5.1); SODIUM SERUM 139 mEq/L (136-145)
[2017-10-06 05:31] LABS: INR 0.98 (0.5-1.4); PROTHROMBIN TIME (TEST) 10.2 SECONDS (9.5-11.5)
[2017-10-06 06:44] LABS: % BASOPHILS 0.3 % (0.0-2.0); % EOSINOPHILS 1.5 % (0.0-5.0); % LYMPHOCYTES 25.6 % (20.0-50.0); % MONOCYTES 7.1 % (2.0-10.0); % NEUTROPHILS 65.5 % (40.0-80.0); EOSINOPHILE ABSOLUTE 0.1 Th/cmm (0.1-0.4); HEMATOCRIT 32.4 % (41.0-60); HEMOGLOBIN 10.9 gm/dL (12-16); LYMPHOCYTE ABSOLUTE 2.4 Th/cmm (1.5-3.0); MEAN CELL VOLUME 92.4 fl (81-100); MEAN CORPUSCULAR HEMOGLOBIN 31.2 pg (27.0-31.0); MEAN CORPUSCULAR HGB CONC 33.8 pg (28.0-36.0); MEAN PLATELET VOLUME 12.1 fl; MONOCYTE ABSOLUTE 0.7 Th/cmm (0.3-1.0); NEUTROPHILE ABSOLUTE 6.3 Th/cmm (1.8-8.0); RED CELL DISTRIBUTION WIDTH 15.3 % (11.5-20.0)
[2017-10-06 06:51] LABS: WHITE BLOOD COUNT 9.5 Th/cmm (4.8-10.8)
[2017-10-06 06:52] LABS: PLATELET COUNT 418 Th/cmm (150-400)
[2017-10-06] MEDS: Theophylline 100 mg ER Tab PO SCH ×2 (09:07→16:00)
[2017-10-06] MEDS: Ammonium Lactate Cream 140 gm Tube TP SCH (10:33)
[2017-10-06] MEDS: Clindamycin 600mg/50mL 600 MG/50 ML BAG IV ONE ×2 (11:08→11:18)
[2017-10-06] MEDS ORDERED: Lidocaine 2% Gel 5 mL TP ONE (13:30)
[2017-10-06] MEDS ORDERED: Propofol 10 mg/mL 20mL Vial **SURGERY USE ONLY IV ONE (13:30)
--- NOTE | 2017-10-06 15:00 | Operative Report ---
DATE OF SURGERY: 10/06/2017 PROCEDURE PERFORMED: EGD with PEG tube placement. PREOPERATIVE DIAGNOSIS: Anorexia and dysphagia. POSTOPERATIVE DIAGNOSES: 1. Successful 20-Yoruba PEG tube placement. 2. Diagnostic EGD. 3. Hiatal hernia. HISTORY OF PRESENT ILLNESS: This is a 67-year-old female who was admitted to the hospital because she was having failure to thrive. She was refusing to eat. She is a poor historian. We have been waiting for about 1 month to get clearance for performing the EGD with PEG tube placement and the patient was brought down today for this procedure after appropriate consent was signed in the chart. CONSENT: Informed consent was obtained from appropriate authorities after explaining the risks, benefits and alternatives of the procedure, which were understood and so stated. SEDATION: Per anesthesia. ESOPHAGOGASTRODUODENOSCOPY: While the patient was in a supine position, a GIF-H180 scope was introduced through the patient's mouth and advanced under direct visualization into the esophagus into the stomach and then up to the second portion of the duodenum. Here, the scope was withdrawn carefully examining the color, texture, and anatomy of the mucosa. The scope was brought back to the gastric body where an appropriate spot was identified for percutaneous gastrostomy placement. Retroflexion was performed, which revealed a hiatal hernia. The patient had approximately a 4 cm hiatal hernia. Using transillumination, an appropriate spot was made on the outside, anesthetized with 10 mL of lidocaine and a single 5 mm incision was made with a scalpel and through this, a trocar was placed with a guidewire through the trocar, which was then grasped and snared by the endoscope and then brought out the mouth. A 20-Yor[place] G-tube was secured to the guidewire and then brought out through the stomach and secured at the 2 cm julia. We then went in with the endoscope to confirm good position of this PEG tube placement. The site was appropriately dressed and cleaned and secured. RECOMMENDATIONS: 1. Keep patient n.p.o. for the next 4 hours. 2. Free water flushes q.2 hours for the next 24 hours with 50 mL of water. 3. Okay to start tube feeds according to dietary recommendations and would start at 10 mL an hour and only gradually increase. 4. Hold for gastric residuals greater than 200 mL, and check every 8 hours. [facility]# [id number]
[2017-10-06] MEDS: TPN 8.5%-70% CUSTOM IV SCH ×2 (18:33→19:53)
[2017-10-07] MEDS: INSULIN ASPART SLIDING SCALE 100 UNITS/ML UNIT SUBQ SCH ×4 (00:20→17:42)
[2017-10-07 05:37] LABS: ALB/GLOB RATIO 1.2 (1.0-1.8); ALBUMIN 3.2 gm/dL (3.7-5.3); ALKALINE PHOSPHATASE 59 U/L (34-104); ANION GAP 12.8 (7.0-16.0); BILIRUBIN,TOTAL 0.6 mg/dL (0.3-1.0); BUN - UREA NITROGEN 16 mg/dL (7-25); CALCIUM SERUM 9.2 mg/dL (8.6-10.3); CARBON DIOXIDE 21.8 mEq/L (21.0-31.0); CHLORIDE 107 mEq/L (98-107); CREATININE - SERUM 0.8 mg/dL (0.6-1.2); GFR AFRICAN-AMERICAN > 60.0 ml/min (>90); GFR NON AFRICAN-AMERICAN > 60.0 ml/min; MAGNESIUM 1.9 mg/dL (1.9-2.7); PHOSPHOROUS 2.9 mg/dL (2.5-5.0); POTASSIUM SERUM 3.6 mEq/L (3.5-5.1); SGOT 25 U/L (13-39); SGPT/ALT 25 U/L (7-52); SODIUM SERUM 138 mEq/L (136-145); TOTAL PROTEIN,SERUM 5.8 gm/dL (6.0-8.3)
[2017-10-07 05:40] LABS: GLUCOSE 236 mg/dL (70-105)
[2017-10-07] MEDS: Theophylline 100 mg ER Tab PO SCH ×2 (09:01→17:45)
[2017-10-07] MEDS: Ammonium Lactate Cream 140 gm Tube TP SCH (09:03)
--- NOTE | 2017-10-07 09:16 | GI Progress Note ---
Subjective - Review of Systems Service Date: 10/07/17 Events since last encounter: Pt seen and examined. tolerating tube feeds at goal Objective - Results Result Diagrams: 10/06/17 04:40 10/07/17 04:30 Recent Labs: Laboratory Last Values WBC 9.5 Th/cmm (4.8-10.8) D 10/06/17 04:40 RBC 3.50 Mil/cmm (3.80-5.20) L 10/06/17 04:40 Hgb 10.9 gm/dL (12-16) L 10/06/17 04:40 Hct 32.4 % (41.0-60) L 10/06/17 04:40 MCV 92.4 fl (81-100) 10/06/17 04:40 MCH 31.2 pg (27.0-31.0) H 10/06/17 04:40 MCHC Differential 33.8 pg (28.0-36.0) 10/06/17 04:40 RDW 15.3 % (11.5-20.0) 10/06/17 04:40 Plt Count 418 Th/cmm (150-400) H D 10/06/17 04:40 MPV 12.1 fl 10/06/17 04:40 Neutrophils % 65.5 % (40.0-80.0) 10/06/17 04:40 Lymphocytes % 25.6 % (20.0-50.0) 10/06/17 04:40 Monocytes % 7.1 % (2.0-10.0) 10/06/17 04:40 Eosinophils % 1.5 % (0.0-5.0) 10/06/17 04:40 Basophils % 0.3 % (0.0-2.0) 10/06/17 04:40 PT 10.2 SECONDS (9.5-11.5) 10/06/17 04:40 INR 0.98 (0.5-1.4) 10/06/17 04:40 Sodium 138 mEq/L (136-145) 10/07/17 04:30 Potassium 3.6 mEq/L (3.5-5.1) 10/07/17 04:30 Chloride 107 mEq/L (98-107) 10/07/17 04:30 Carbon Dioxide 21.8 mEq/L (21.0-31.0) 10/07/17 04:30 Anion Gap 12.8 (7.0-16.0) 10/07/17 04:30 BUN 16 mg/dL (7-25) 10/07/17 04:30 Creatinine 0.8 mg/dL (0.6-1.2) 10/07/17 04:30 Est GFR ( Amer) > 60.0 ml/min (>90) 10/07/17 04:30 Est GFR (Non-Af Amer) > 60.0 ml/min 10/07/17 04:30 BUN/Creatinine Ratio 20.0 10/07/17 04:30 Glucose 236 mg/dL (70-105) H D 10/07/17 04:30 POC Glucose 84 MG/DL (70 - 105) 10/06/17 11:15 Hemoglobin A1c % 5.2 % (4.0-6.0) 09/23/17 05:15 Calcium 9.2 mg/dL (8.6-10.3) 10/07/17 04:30 Phosphorus 2.9 mg/dL (2.5-5.0) 10/07/17 04:30 Magnesium 1.9 mg/dL (1.9-2.7) 10/07/17 04:30 Total Bilirubin 0.6 mg/dL (0.3-1.0) 10/07/17 04:30 Direct Bilirubin 0.11 mg/dL (0.0-0.2) 10/01/17 05:40 AST 25 U/L (13-39) 10/07/17 04:30 ALT 25 U/L (7-52) 10/07/17 04:30 Alkaline Phosphatase 59 U/L (34-104) 10/07/17 04:30 Ammonia 43 umol/L (16-53) 09/01/17 05:40 B-Natriuretic Peptide 71.5 pg/mL (5.0-100.0) 10/04/17 06:37 Total Protein 5.8 gm/dL (6.0-8.3) L 10/07/17 04:30 Albumin 3.2 gm/dL (3.7-5.3) L 10/07/17 04:30 Globulin 2.6 gm/dL 10/07/17 04:30 Albumin/Globulin Ratio 1.2 (1.0-1.8) 10/07/17 04:30 Prealbumin 21 mg/dL (10-36) 10/01/17 05:40 Triglycerides 76 mg/dL (<150) 10/01/17 05:40 Cholesterol 140 mg/dL (<200) 10/01/17 05:40 Vitamin B12 790 pg/mL (232-1245) 09/01/17 05:40 Folic Acid 4.8 ng/mL (>3.0) 09/01/17 05:40 TSH 1.04 uIU/ml (0.34-5.60) 09/29/17 06:16 Urine Source [place] 08/29/17 13:45 Urine Color YELLOW 08/29/17 13:45 Urine Clarity SLIGHTLY HAZY (CLEAR) 08/29/17 13:45 Urine pH 7.5 (4.6 - 8.0) 08/29/17 13:45 Ur Specific [place] 1.010 (1.005-1.030) 08/29/17 13:45 Urine Protein NEGATIVE mg/dL (NEGATIVE) 08/29/17 13:45 Urine Glucose (UA) NEGATIVE mg/dL (NEGATIVE) 08/29/17 13:45 Urine Ketones NEGATIVE mg/dL (NEGATIVE) 08/29/17 13:45 Urine Blood TRACE (NEGATIVE) 08/29/17 13:45 Urine Nitrate NEGATIVE (NEGATIVE) 08/29/17 13:45 Urine Bilirubin NEGATIVE (NEGATIVE) 08/29/17 13:45 Urine Urobilinogen 0.2 E.U./dL (0.2 - 1.0) 08/29/17 13:45 Ur Leukocyte Esterase NEGATIVE (NEGATIVE) 08/29/17 13:45 Urine RBC 0-2 /hpf (0-5) 08/29/17 13:45 Urine WBC 0-2 /hpf (0-5) 08/29/17 13:45 Ur Epithelial Cells OCCASIONAL /lpf (FEW) 08/29/17 13:45 Urine Bacteria FEW /hpf (NONE SEEN) 08/29/17 13:45 Vancomycin Trough < 2.0 ug/mL (5-10) L 09/17/17 21:34 Hepatitis A IgM Ab Negative (Negative) 09/24/17 05:55 Hep Bs Antigen Negative (Negative) 09/24/17 05:55 Hep B Core IgM Ab Negative (Negative) 09/24/17 05:55 Hepatitis C Antibody 0.1 s/co ratio (0.0-0.9) 09/24/17 05:55 HIV 1&2 Antibody Screen NEGATIVE (NEG) 09/24/17 05:55 - Physical Exam Vitals and I&O: Vital Signs Temp 97.2 F 10/07/17 07:47 Pulse 69 10/07/17 07:47 Resp 17 10/07/17 07:47 BP 127/35 10/07/17 07:47 Pulse Ox 100 10/07/17 07:47 Intake & Output 10/06/17 10/07/17 10/07/17 18:59 06:59 18:59 Intake Total 1920 960 Output Total 650 Balance 1920 310 Weight (lbs) 43.091 kg Intake: Intake, IV Amount 1920 Multivitamin Inj 10 ml In 1920 Dextrose 70% 1,160 ml In Amino Acids 8.5% 500 ml In Intralipids 20% 250 ml @ 80 mls/hr IV .Q24H [facility] Rx#:[id number] Tube Feeding 480 TPN/PPN 480 Output: Urine 650 Other: Weight Source Bedscale Active Medications: Current Medications Acetaminophen (Tylenol) 650 mg GT Q4HR PRN PRN Reason: Pain or Fever >101 Stop: 10/23/17 19:40 Albuterol Sulfate (Albuterol 2.5mg/3ml Neb Ud) 2.5 mg HHN Q4HRT PRN PRN Reason: Shortness of Breath Stop: 10/23/17 19:40 Artificial Tears (Artificial Tears Ophth Soln) 1 drop EACH EYE Q2H PRN PRN Reason: Dry Eye Stop: 11/10/17 10:46 Bisacodyl (Dulcolax 10 Mg Supp) 10 mg RC DAILY PRN PRN Reason: Constipation Stop: 10/23/17 19:40 Docusate Sodium (Colace) 100 mg GT DAILY PRN PRN Reason: CONSTIPATION Stop: 10/24/17 08:59 Last Admin: 08/27/17 17:38 Dose: 100 mg Dextrose (D5w) 1,000 mls @ 50 mls/hr IV .Q20H [facility] Stop: 11/21/17 17:29 Last Admin: 10/05/17 16:24 Dose: 50 mls/hr Multivitamins/Minerals 10 ml/Dextrose/ Amino Acids/Electrolytes/ Fat Emulsion Intravenous 1,920 mls @ 80 mls/hr IV .Q24H [facility] Stop: 10/30/17 15:59 Last Admin: 10/06/17 19:53 Dose: 80 mls/hr Insulin Aspart (Novolog Insulin Sliding Scale) 0 units SUBQ Q6H [facility]; Protocol Stop: 11/28/17 17:59 Last Admin: 10/07/17 05:57 Dose: Not Given Ipratropium [place] (Atrovent Neb 0.5mg/2.5ml) 0.5 mg HHN Q4HRT PRN PRN Reason: Shortness of Breath or Wheeze Stop: 10/23/17 19:40 Lactic Acid (Lac-Hydrin Cream) 1 appl TP DAILY FOZIA Stop: 10/24/17 08:59 Last Admin: 10/07/17 09:03 Dose: 1 appl Levothyroxine Sodium (Synthroid) 0.05 mg IVP QDAC FOZ[facility] Stop: 11/23/17 07:29 Last Admin: 10/07/17 09:08 Dose: 0.05 mg Lorazepam (Ativan) 1 mg IV Q4H PRN; Protocol PRN Reason: Agitation Stop: 11/19/17 07:48 Last Admin: 10/04/17 22:55 Dose: 1 mg Magnesium Hydroxide (Milk Of Magnesia) 30 ml PO HS PRN PRN Reason: Constipation Stop: 10/23/17 19:40 Megestrol Acetate (Megace) 400 mg PO BID FOZIA Stop: 10/24/17 08:59 Last Admin: 10/07/17 09:01 Dose: 400 mg Midodrine (Proamatine) 2.5 mg PO TID FOZIA Stop: 11/20/17 20:59 Last Admin: 10/07/17 09:03 Dose: 2.5 mg Mirtazapine (Remeron) 15 mg PO HS FOZIA; Protocol Stop: 10/30/17 20:59 Last Admin: 10/06/17 22:06 Dose: Not Given Miscellaneous (Vte Chemical Prophylaxis Screen/ Admission) 1 ea MC PRN PRN PRN Reason: PROTOCOL Stop: 10/24/17 09:26 Miscellaneous (Probiotic Screen) 1 ea MC PRN PRN PRN Reason: PROTOCOL Stop: 10/29/17 08:59 Miscellaneous (Ppn Per Pharmacy) 1 ea MC PRN PRN PRN Reason: PPN PER RX Stop: 11/11/17 14:29 Olanzapine (Zyprexa) 5 mg PO HS FOZIA; Protocol Stop: 10/23/17 20:59 Last Admin: 10/06/17 22:06 Dose: Not Given Sodium Phosphate (Fleet Enema) 135 ml RC DAILY PRN PRN Reason: Constipation Stop: 10/23/17 19:40 Theophylline (Elijah-Dur) 200 mg PO BID FOZIA Stop: 11/23/17 16:59 Last Admin: 10/07/17 09:01 Dose: 200 mg General: No acute distress Cardiovascular: Regular rate Lungs: Clear to auscultation Abdomen: Soft, no Tender - Procedures Procedures: Procedures Procedure Code Date RECREATIONAL THERAPY 93.81 11/09/10 Assessment/Plan - Assessment Assessment: 67 YO FEMALE WITH ANOREXIA AND DYSPHAGIA PENDING PEG PLACEMENT. ON GROUP HOME TPN. LIKELY HAS DEMENTIA. -continue with tube feeds at goal -Supportive care -Gi will sign off Please call or page if any questions
[2017-10-07] MEDS ORDERED: Probiotic Screen MC PRN (09:45)
--- NOTE | 2017-10-07 14:19 | Internal Medicine Prog Note ---
Internal Medicine Subjective - Subjective Service Date: 10/07/17 Patient is:: awake, non-interactive, in bed, confused, other Patient Complaints of:: congestion Per staff patient has:: poor appetite, poor oral intake Internal Medicine Objective - Results Result Diagrams: 10/06/17 04:40 10/07/17 04:30 Recent Labs: Laboratory Last Values WBC 9.5 Th/cmm (4.8-10.8) D 10/06/17 04:40 RBC 3.50 Mil/cmm (3.80-5.20) L 10/06/17 04:40 Hgb 10.9 gm/dL (12-16) L 10/06/17 04:40 Hct 32.4 % (41.0-60) L 10/06/17 04:40 MCV 92.4 fl (81-100) 10/06/17 04:40 MCH 31.2 pg (27.0-31.0) H 10/06/17 04:40 MCHC Differential 33.8 pg (28.0-36.0) 10/06/17 04:40 RDW 15.3 % (11.5-20.0) 10/06/17 04:40 Plt Count 418 Th/cmm (150-400) H D 10/06/17 04:40 MPV 12.1 fl 10/06/17 04:40 Neutrophils % 65.5 % (40.0-80.0) 10/06/17 04:40 Lymphocytes % 25.6 % (20.0-50.0) 10/06/17 04:40 Monocytes % 7.1 % (2.0-10.0) 10/06/17 04:40 Eosinophils % 1.5 % (0.0-5.0) 10/06/17 04:40 Basophils % 0.3 % (0.0-2.0) 10/06/17 04:40 PT 10.2 SECONDS (9.5-11.5) 10/06/17 04:40 INR 0.98 (0.5-1.4) 10/06/17 04:40 Sodium 138 mEq/L (136-145) 10/07/17 04:30 Potassium 3.6 mEq/L (3.5-5.1) 10/07/17 04:30 Chloride 107 mEq/L (98-107) 10/07/17 04:30 Carbon Dioxide 21.8 mEq/L (21.0-31.0) 10/07/17 04:30 Anion Gap 12.8 (7.0-16.0) 10/07/17 04:30 BUN 16 mg/dL (7-25) 10/07/17 04:30 Creatinine 0.8 mg/dL (0.6-1.2) 10/07/17 04:30 Est GFR ( Amer) > 60.0 ml/min (>90) 10/07/17 04:30 Est GFR (Non-Af Amer) > 60.0 ml/min 10/07/17 04:30 BUN/Creatinine Ratio 20.0 10/07/17 04:30 Glucose 236 mg/dL (70-105) H D 10/07/17 04:30 POC Glucose 136 MG/DL (70 - 105) H 10/07/17 11:29 Hemoglobin A1c % 5.2 % (4.0-6.0) 09/23/17 05:15 Calcium 9.2 mg/dL (8.6-10.3) 10/07/17 04:30 Phosphorus 2.9 mg/dL (2.5-5.0) 10/07/17 04:30 Magnesium 1.9 mg/dL (1.9-2.7) 10/07/17 04:30 Total Bilirubin 0.6 mg/dL (0.3-1.0) 10/07/17 04:30 Direct Bilirubin 0.11 mg/dL (0.0-0.2) 10/01/17 05:40 AST 25 U/L (13-39) 10/07/17 04:30 ALT 25 U/L (7-52) 10/07/17 04:30 Alkaline Phosphatase 59 U/L (34-104) 10/07/17 04:30 Ammonia 43 umol/L (16-53) 09/01/17 05:40 B-Natriuretic Peptide 71.5 pg/mL (5.0-100.0) 10/04/17 06:37 Total Protein 5.8 gm/dL (6.0-8.3) L 10/07/17 04:30 Albumin 3.2 gm/dL (3.7-5.3) L 10/07/17 04:30 Globulin 2.6 gm/dL 10/07/17 04:30 Albumin/Globulin Ratio 1.2 (1.0-1.8) 10/07/17 04:30 Prealbumin 21 mg/dL (10-36) 10/01/17 05:40 Triglycerides 76 mg/dL (<150) 10/01/17 05:40 Cholesterol 140 mg/dL (<200) 10/01/17 05:40 Vitamin B12 790 pg/mL (232-1245) 09/01/17 05:40 Folic Acid 4.8 ng/mL (>3.0) 09/01/17 05:40 TSH 1.04 uIU/ml (0.34-5.60) 09/29/17 06:16 Urine Source [place] 08/29/17 13:45 Urine Color YELLOW 08/29/17 13:45 Urine Clarity SLIGHTLY HAZY (CLEAR) 08/29/17 13:45 Urine pH 7.5 (4.6 - 8.0) 08/29/17 13:45 Ur Specific [place] 1.010 (1.005-1.030) 08/29/17 13:45 Urine Protein NEGATIVE mg/dL (NEGATIVE) 08/29/17 13:45 Urine Glucose (UA) NEGATIVE mg/dL (NEGATIVE) 08/29/17 13:45 Urine Ketones NEGATIVE mg/dL (NEGATIVE) 08/29/17 13:45 Urine Blood TRACE (NEGATIVE) 08/29/17 13:45 Urine Nitrate NEGATIVE (NEGATIVE) 08/29/17 13:45 Urine Bilirubin NEGATIVE (NEGATIVE) 08/29/17 13:45 Urine Urobilinogen 0.2 E.U./dL (0.2 - 1.0) 08/29/17 13:45 Ur Leukocyte Esterase NEGATIVE (NEGATIVE) 08/29/17 13:45 Urine RBC 0-2 /hpf (0-5) 08/29/17 13:45 Urine WBC 0-2 /hpf (0-5) 08/29/17 13:45 Ur Epithelial Cells OCCASIONAL /lpf (FEW) 08/29/17 13:45 Urine Bacteria FEW /hpf (NONE SEEN) 08/29/17 13:45 Vancomycin Trough < 2.0 ug/mL (5-10) L 09/17/17 21:34 Hepatitis A IgM Ab Negative (Negative) 09/24/17 05:55 Hep Bs Antigen Negative (Negative) 09/24/17 05:55 Hep B Core IgM Ab Negative (Negative) 09/24/17 05:55 Hepatitis C Antibody 0.1 s/co ratio (0.0-0.9) 09/24/17 05:55 HIV 1&2 Antibody Screen NEGATIVE (NEG) 09/24/17 05:55 - Physical Exam Vitals and I&O: Vital Signs Temp 97.7 F 10/07/17 13:00 Pulse 59 10/07/17 13:00 Resp 18 10/07/17 13:00 BP 127/44 10/07/17 13:00 Pulse Ox 100 10/07/17 11:44 Intake & Output 10/06/17 10/07/17 10/07/17 18:59 06:59 18:59 Intake Total 1920 960 Output Total 650 Balance 1920 310 Weight (lbs) 95 lb Intake: Intake, IV Amount 1920 Multivitamin Inj 10 ml In 1920 Dextrose 70% 1,160 ml In Amino Acids 8.5% 500 ml In Intralipids 20% 250 ml @ 80 mls/hr IV .Q24H REPLACED BY [facility] Rx#:[id number] Tube Feeding 480 TPN/PPN 480 Output: Urine 650 Other: Weight Source Bedscale Active Medications: Current Medications Acetaminophen (Tylenol) 650 mg GT Q4HR PRN PRN Reason: Pain or Fever >101 Stop: 10/23/17 19:40 Albuterol Sulfate (Albuterol 2.5mg/3ml Neb Ud) 2.5 mg HHN Q4HRT PRN PRN Reason: Shortness of Breath Stop: 10/23/17 19:40 Artificial Tears (Artificial Tears Ophth Soln) 1 drop EACH EYE Q2H PRN PRN Reason: Dry Eye Stop: 11/10/17 10:46 Bisacodyl (Dulcolax 10 Mg Supp) 10 mg RC DAILY PRN PRN Reason: Constipation Stop: 10/23/17 19:40 Docusate Sodium (Colace) 100 mg GT DAILY PRN PRN Reason: CONSTIPATION Stop: 10/24/17 08:59 Last Admin: 08/27/17 17:38 Dose: 100 mg Dextrose (D5w) 1,000 mls @ 50 mls/hr IV .Q20H FOZIA Stop: 11/21/17 17:29 Last Admin: 10/05/17 16:24 Dose: 50 mls/hr Multivitamins/Minerals 10 ml/Dextrose/ Amino Acids/Electrolytes/ Fat Emulsion Intravenous 1,920 mls @ 80 mls/hr IV .Q24H FOZIA Stop: 10/30/17 15:59 Last Admin: 10/06/17 19:53 Dose: 80 mls/hr Insulin Aspart (Novolog Insulin Sliding Scale) 0 units SUBQ Q6H FOZIA; Protocol Stop: 11/28/17 17:59 Last Admin: 10/07/17 11:39 Dose: Not Given Ipratropium [place] (Atrovent Neb 0.5mg/2.5ml) 0.5 mg HHN Q4HRT PRN PRN Reason: Shortness of Breath or Wheeze Stop: 10/23/17 19:40 Lactic Acid (Lac-Hydrin Cream) 1 appl TP DAILY FOZIA Stop: 10/24/17 08:59 Last Admin: 10/07/17 09:03 Dose: 1 appl Lactobacillus Rhamnosus (Culturelle 15b) 1 each PO DAILY FOZIA Stop: 12/07/17 08:59 Levothyroxine Sodium (Synthroid) 0.05 mg PO QDAC FOZIA Stop: 12/07/17 07:29 Lorazepam (Ativan) 1 mg IV Q4H PRN; Protocol PRN Reason: Agitation Stop: 11/19/17 07:48 Last Admin: 10/04/17 22:55 Dose: 1 mg Magnesium Hydroxide (Milk Of Magnesia) 30 ml PO HS PRN PRN Reason: Constipation Stop: 10/23/17 19:40 Megestrol Acetate (Megace) 400 mg PO BID FOZIA Stop: 10/24/17 08:59 Last Admin: 10/07/17 09:01 Dose: 400 mg Midodrine (Proamatine) 2.5 mg PO TID FOZIA Stop: 11/20/17 20:59 Last Admin: 10/07/17 09:03 Dose: 2.5 mg Mirtazapine (Remeron) 15 mg PO HS FOZIA; Protocol Stop: 10/30/17 20:59 Last Admin: 10/06/17 22:06 Dose: Not Given Miscellaneous (Vte Chemical Prophylaxis Screen/ Admission) 1 ea MC PRN PRN PRN Reason: PROTOCOL Stop: 10/24/17 09:26 Miscellaneous (Probiotic Screen) 1 ea MC PRN PRN PRN Reason: PROTOCOL Stop: 10/29/17 08:59 Miscellaneous (Ppn Per Pharmacy) 1 ea MC PRN PRN PRN Reason: PPN PER RX Stop: 11/11/17 14:29 Miscellaneous (Probiotic Screen) 1 ea MC PRN PRN PRN Reason: PROTOCOL Stop: 12/06/17 09:44 Olanzapine (Zyprexa) 5 mg PO HS FOZIA; Protocol Stop: 10/23/17 20:59 Last Admin: 10/06/17 22:06 Dose: Not Given Sodium Phosphate (Fleet Enema) 135 ml RC DAILY PRN PRN Reason: Constipation Stop: 10/23/17 19:40 Theophylline (Elijah-Dur) 200 mg PO BID FOZIA Stop: 11/23/17 16:59 Last Admin: 10/07/17 09:01 Dose: 200 mg General: demented, disheveled, thin, cachectic HEENT: NC/AT, PERRLA Neck: Supple, No JVD, No LAD Lungs: chest deformity present Cardiovascular: RRR, Normal S1, Normal S2, with murmur Abdomen: soft, non-tender, thin, positive bowel sound Extremities: excoriation, contracture, deformity Neurological: disorganized, muscle weakness, unable to follow command - Procedures Procedures: Procedures Procedure Code Date RECREATIONAL THERAPY 93.81 11/09/10 Internal Medicine Assmt/Plan - Assessment Assessment: s/p peg placement Failure to thrive severe protein-caloric malnutrition diabetes congestive heart failure acute on chronic renal insufficiency schizoaffective disorder hypertension hypokalemia dementia legally blind leukocytosis bedbound. noncompliant - Plan Plan: taper ppn as patient is tolerating GTF ivf for hydration monitor electrolytes continue current plan of care Nutritional Asmnt/Malnutr-PDOC - Dietary Evaluation Malnutrition Findings (Please click <Entered> for more info): Nutritional Asmnt/Malnutrition Start: 08/25/17 17: 28 Text: Status: Complete Freq: Protocol: Document 08/25/17 17:28 [email or web address] (Rec: 08/25/17 17:32 [id number]) Nutritional Asmnt/Malnutrition Patient General Information Nutritional Screening High Risk Consult Diagnosis dehydration, FTT Pertinent Medical Hx/Surgical Hx DM, CHF, kidney failure, schizophrenia, HTN, dementia, legally blind, noncompliance Subjective Information Consult received for poor oral intake. Pt seen resting in bed at time of visit. Per nurse note, pt refused breakfast and lunch today. Pt on calorie count noted. Current Diet Order/ Nutrition Support pureed, nectar thin liquid Pertinent Medications D5-0.45ns, colace, novolog, megace Pertinent Labs 08/25 K 3.0, glucose 106 Nutritional Hx/Data Height 5 ft 6 in Height (Calculated Centimeters) 167.6 Current Weight (lbs) 111 lb Weight (Calculated Kilograms) 50.3 Weight (Calculated Grams) 53425.8 [place] Body Weight 130 Body Mass Index (BMI) 17.9 Weight Status Underweight GI Symptoms GI Symptoms None Last BM none Skin Integrity/Comment: redness Estimated Nutritional Goals BEE in Kcals: Using Current wt Calories/Kcals/Kg 30-35 Kcals Calculated [id number] Protein: Using Current wt Protein g/k.2 Protein Calculated 60 Fluid: ml 1500-1750ml (1ml/kcal) Nutritional Problem 1. Problem Problem inadequate food intake Etiology pt refusing to eat Signs/Symptoms: PO intake <25% since admission Malnutrition Alert Muscle Mass (Non-Severe) Mild Depletion Is there a minimum of two criteria No selected? Query Text:Check all the applicable criteria. A minimum of two criteria are recommended for diagnosis of either severe or non-severe malnutrition. Malnutrition Related to Morbid Obesity Malnutrition related to morbid obesity No Intervention/Recommendation Comments 1. Continue with current diet as ordered. Assist pt with meals and encourage oral intake. 2. Monitor PO intake, wt, labs and skin integrity 3. F/U as high risk in 2-3 days, 08/27-08/28 Expected Outcomes/Goals Expected Outcomes/Goals 1. PO intake to meet at least 75% of nutritional needs. 2. Wt stability, skin to remain intact, labs to approach WNL.
[2017-10-07] MEDS: Dextrose 5% 1,000 ML IV SCH (17:45)
[2017-10-08] MEDS: INSULIN ASPART SLIDING SCALE 100 UNITS/ML UNIT SUBQ SCH ×4 (00:13→17:38)
[2017-10-08 06:25] LABS: % BASOPHILS 0.2 % (0.0-2.0); % EOSINOPHILS 0.5 % (0.0-5.0); % LYMPHOCYTES 11.6 % (20.0-50.0); % NEUTROPHILS 80.7 % (40.0-80.0); HEMATOCRIT 28.6 % (41.0-60); HEMOGLOBIN 9.9 gm/dL (12-16); MEAN CELL VOLUME 92.9 fl (81-100); MEAN CORPUSCULAR HGB CONC 34.4 pg (28.0-36.0); MEAN PLATELET VOLUME 10.6 fl; MONOCYTE ABSOLUTE 0.6 Th/cmm (0.3-1.0); NEUTROPHILE ABSOLUTE 6.6 Th/cmm (1.8-8.0); PLATELET COUNT 283 Th/cmm (150-400); RED BLOOD COUNT 3.08 Mil/cmm (3.80-5.20); RED CELL DISTRIBUTION WIDTH 15.2 % (11.5-20.0); WHITE BLOOD COUNT 8.2 Th/cmm (4.8-10.8)
[2017-10-08] MEDS: Levothyroxine 0.05 Mg Tab PO SCH (07:53)
[2017-10-08] MEDS: Theophylline 100 mg ER Tab PO SCH ×2 (08:24→16:39)
[2017-10-08] MEDS: Lactobacillus Rhamnosus GG 15 Billion CFU CAP.SPRINK PO SCH (08:24)
[2017-10-08] MEDS: Ammonium Lactate Cream 140 gm Tube TP SCH (08:30)
[2017-10-08 08:46] LABS: ALB/GLOB RATIO 1.3 (1.0-1.8); ALBUMIN 3.4 gm/dL (3.7-5.3); ALKALINE PHOSPHATASE 55 U/L (34-104); ANION GAP 10.3 (7.0-16.0); BILIRUBIN,TOTAL 0.5 mg/dL (0.3-1.0); BUN - UREA NITROGEN 13 mg/dL (7-25); CALCIUM SERUM 9.6 mg/dL (8.6-10.3); CARBON DIOXIDE 26.9 mEq/L (21.0-31.0); CHLORIDE 109 mEq/L (98-107); CREATININE - SERUM 0.8 mg/dL (0.6-1.2); GFR AFRICAN-AMERICAN > 60.0 ml/min (>90); GFR NON AFRICAN-AMERICAN > 60.0 ml/min; GLUCOSE 123 mg/dL (70-105); MAGNESIUM 1.8 mg/dL (1.9-2.7); PHOSPHOROUS 1.7 mg/dL (2.5-5.0); POTASSIUM SERUM 3.2 mEq/L (3.5-5.1); SGOT 12 U/L (13-39); SGPT/ALT 21 U/L (7-52); SODIUM SERUM 143 mEq/L (136-145)
[2017-10-08] MEDS ORDERED: Mag Sulfate 2gm/50mL Premix 2 GM/50 ML BAG IV ONE (12:38)
[2017-10-08] MEDS ORDERED: Potassium Phosphate 30 MMOLE in Sodium Chloride 0.9% 250 ML IV ONE (13:00)
[2017-10-08] MEDS: Docusate Sodium 100 mg/10 mL UD GT PRN (13:35)
[2017-10-08] MEDS: Dextrose 5% 1,000 ML IV SCH (13:42)
[2017-10-08] MEDS ORDERED: Potassium Chloride 20 mEq ER Tab PO ONE (14:26)
--- NOTE | 2017-10-08 14:26 | Internal Medicine Prog Note ---
Internal Medicine Subjective - Subjective Service Date: 10/08/17 Patient seen and examined:: with staff Patient is:: awake, non-interactive, in bed, confused, other Patient Complaints of:: congestion Per staff patient has:: poor appetite, poor oral intake Internal Medicine Objective - Results Result Diagrams: 10/08/17 05:38 10/08/17 05:38 Recent Labs: Laboratory Last Values WBC 8.2 Th/cmm (4.8-10.8) 10/08/17 05:38 RBC 3.08 Mil/cmm (3.80-5.20) L 10/08/17 05:38 Hgb 9.9 gm/dL (12-16) L 10/08/17 05:38 Hct 28.6 % (41.0-60) L 10/08/17 05:38 MCV 92.9 fl (81-100) 10/08/17 05:38 MCH 32.0 pg (27.0-31.0) H 10/08/17 05:38 MCHC Differential 34.4 pg (28.0-36.0) 10/08/17 05:38 RDW 15.2 % (11.5-20.0) 10/08/17 05:38 Plt Count 283 Th/cmm (150-400) 10/08/17 05:38 MPV 10.6 fl 10/08/17 05:38 Neutrophils % 80.7 % (40.0-80.0) H 10/08/17 05:38 Lymphocytes % 11.6 % (20.0-50.0) L 10/08/17 05:38 Monocytes % 7.0 % (2.0-10.0) 10/08/17 05:38 Eosinophils % 0.5 % (0.0-5.0) 10/08/17 05:38 Basophils % 0.2 % (0.0-2.0) 10/08/17 05:38 PT 10.2 SECONDS (9.5-11.5) 10/06/17 04:40 INR 0.98 (0.5-1.4) 10/06/17 04:40 Sodium 143 mEq/L (136-145) 10/08/17 05:38 Potassium 3.2 mEq/L (3.5-5.1) L 10/08/17 05:38 Chloride 109 mEq/L (98-107) H 10/08/17 05:38 Carbon Dioxide 26.9 mEq/L (21.0-31.0) 10/08/17 05:38 Anion Gap 10.3 (7.0-16.0) 10/08/17 05:38 BUN 13 mg/dL (7-25) 10/08/17 05:38 Creatinine 0.8 mg/dL (0.6-1.2) 10/08/17 05:38 Est GFR ( Amer) > 60.0 ml/min (>90) 10/08/17 05:38 Est GFR (Non-Af Amer) > 60.0 ml/min 10/08/17 05:38 BUN/Creatinine Ratio 16.3 10/08/17 05:38 Glucose 123 mg/dL (70-105) H 10/08/17 05:38 POC Glucose 120 MG/DL (70 - 105) H 10/08/17 11:30 Hemoglobin A1c % 5.2 % (4.0-6.0) 09/23/17 05:15 Calcium 9.6 mg/dL (8.6-10.3) 10/08/17 05:38 Phosphorus 1.7 mg/dL (2.5-5.0) L 10/08/17 05:38 Magnesium 1.8 mg/dL (1.9-2.7) L 10/08/17 05:38 Total Bilirubin 0.5 mg/dL (0.3-1.0) 10/08/17 05:38 Direct Bilirubin 0.11 mg/dL (0.0-0.2) 10/01/17 05:40 AST 12 U/L (13-39) L 10/08/17 05:38 ALT 21 U/L (7-52) 10/08/17 05:38 Alkaline Phosphatase 55 U/L (34-104) 10/08/17 05:38 Ammonia 43 umol/L (16-53) 09/01/17 05:40 B-Natriuretic Peptide 71.5 pg/mL (5.0-100.0) 10/04/17 06:37 Total Protein 6.0 gm/dL (6.0-8.3) 10/08/17 05:38 Albumin 3.4 gm/dL (3.7-5.3) L 10/08/17 05:38 Globulin 2.6 gm/dL 10/08/17 05:38 Albumin/Globulin Ratio 1.3 (1.0-1.8) 10/08/17 05:38 Prealbumin 21 mg/dL (10-36) 10/01/17 05:40 Triglycerides 76 mg/dL (<150) 10/01/17 05:40 Cholesterol 140 mg/dL (<200) 10/01/17 05:40 Vitamin B12 790 pg/mL (232-1245) 09/01/17 05:40 Folic Acid 4.8 ng/mL (>3.0) 09/01/17 05:40 TSH 1.04 uIU/ml (0.34-5.60) 09/29/17 06:16 Urine Source [place] 08/29/17 13:45 Urine Color YELLOW 08/29/17 13:45 Urine Clarity SLIGHTLY HAZY (CLEAR) 08/29/17 13:45 Urine pH 7.5 (4.6 - 8.0) 08/29/17 13:45 Ur Specific [place] 1.010 (1.005-1.030) 08/29/17 13:45 Urine Protein NEGATIVE mg/dL (NEGATIVE) 08/29/17 13:45 Urine Glucose (UA) NEGATIVE mg/dL (NEGATIVE) 08/29/17 13:45 Urine Ketones NEGATIVE mg/dL (NEGATIVE) 08/29/17 13:45 Urine Blood TRACE (NEGATIVE) 08/29/17 13:45 Urine Nitrate NEGATIVE (NEGATIVE) 08/29/17 13:45 Urine Bilirubin NEGATIVE (NEGATIVE) 08/29/17 13:45 Urine Urobilinogen 0.2 E.U./dL (0.2 - 1.0) 08/29/17 13:45 Ur Leukocyte Esterase NEGATIVE (NEGATIVE) 08/29/17 13:45 Urine RBC 0-2 /hpf (0-5) 08/29/17 13:45 Urine WBC 0-2 /hpf (0-5) 08/29/17 13:45 Ur Epithelial Cells OCCASIONAL /lpf (FEW) 08/29/17 13:45 Urine Bacteria FEW /hpf (NONE SEEN) 08/29/17 13:45 Vancomycin Trough < 2.0 ug/mL (5-10) L 09/17/17 21:34 Hepatitis A IgM Ab Negative (Negative) 09/24/17 05:55 Hep Bs Antigen Negative (Negative) 09/24/17 05:55 Hep B Core IgM Ab Negative (Negative) 09/24/17 05:55 Hepatitis C Antibody 0.1 s/co ratio (0.0-0.9) 09/24/17 05:55 HIV 1&2 Antibody Screen NEGATIVE (NEG) 09/24/17 05:55 - Physical Exam Vitals and I&O: Vital Signs Temp 97.1 F 10/08/17 13:00 Pulse 70 10/08/17 13:00 Resp 17 10/08/17 13:00 BP 135/57 10/08/17 13:00 Pulse Ox 98 10/08/17 11:59 Intake & Output 10/07/17 10/08/17 10/08/17 18:59 06:59 18:59 Intake Total 1800 1537.5 Output Total 1750 1080 Balance 50 457.5 Weight (lbs) 97 lb 97 lb Intake: Intake, IV Amount 997.5 Dextrose 5% 1,000 ml @ 50 997.5 mls/hr IV .Q20H [facility] Rx#: [id number] Tube Feeding 1020 540 TPN/PPN 780 Output: Urine 1750 1080 Other: # Bowel Movements 0 Weight Source Bedscale Bedscale Active Medications: Current Medications Acetaminophen (Tylenol) 650 mg GT Q4HR PRN PRN Reason: Pain or Fever >101 Stop: 10/23/17 19:40 Albuterol Sulfate (Albuterol 2.5mg/3ml Neb Ud) 2.5 mg HHN Q4HRT PRN PRN Reason: Shortness of Breath Stop: 10/23/17 19:40 Artificial Tears (Artificial Tears Ophth Soln) 1 drop EACH EYE Q2H PRN PRN Reason: Dry Eye Stop: 11/10/17 10:46 Bisacodyl (Dulcolax 10 Mg Supp) 10 mg RC DAILY PRN PRN Reason: Constipation Stop: 10/23/17 19:40 Last Admin: 10/08/17 13:35 Dose: 10 mg Docusate Sodium (Colace) 100 mg GT DAILY PRN PRN Reason: CONSTIPATION Stop: 10/24/17 08:59 Last Admin: 10/08/17 13:35 Dose: 100 mg Dextrose (D5w) 1,000 mls @ 50 mls/hr IV .Q20H [facility] Stop: 11/21/17 17:29 Last Admin: 10/08/17 13:42 Dose: 50 mls/hr Magnesium Sulfate (Magnesium Sulfate Premix) 2 gm in 50 mls @ 25 mls/hr IV X1 ONE Stop: 10/08/17 14:37 Last Admin: 10/08/17 13:21 Dose: 25 mls/hr Potassium Phosphate 30 mmole/ (Sodium Chloride) 260 mls @ 42 mls/hr IV X1 ONE Stop: 10/08/17 19:11 Insulin Aspart (Novolog Insulin Sliding Scale) 0 units SUBQ Q6H [facility]; Protocol Stop: 11/28/17 17:59 Last Admin: 10/08/17 13:11 Dose: Not Given Ipratropium [place] (Atrovent Neb 0.5mg/2.5ml) 0.5 mg HHN Q4HRT PRN PRN Reason: Shortness of Breath or Wheeze Stop: 10/23/17 19:40 Lactic Acid (Lac-Hydrin Cream) 1 appl TP DAILY [facility] Stop: 10/24/17 08:59 Last Admin: 10/08/17 08:30 Dose: 1 appl Lactobacillus Rhamnosus (Culturelle 15b) 1 each PO DAILY [facility] Stop: 12/07/17 08:59 Last Admin: 10/08/17 08:24 Dose: 1 each Levothyroxine Sodium (Synthroid) 0.05 mg PO QDAC [facility] Stop: 12/07/17 07:29 Last Admin: 10/08/17 07:53 Dose: 0.05 mg Lorazepam (Ativan) 1 mg IV Q4H PRN; Protocol PRN Reason: Agitation Stop: 11/19/17 07:48 Last Admin: 10/04/17 22:55 Dose: 1 mg Magnesium Hydroxide (Milk Of Magnesia) 30 ml PO HS PRN PRN Reason: Constipation Stop: 10/23/17 19:40 Megestrol Acetate (Megace) 400 mg PO BID [facility] Stop: 10/24/17 08:59 Last Admin: 10/08/17 08:23 Dose: 400 mg Midodrine (Proamatine) 2.5 mg PO TID [facility] Stop: 11/20/17 20:59 Last Admin: 10/08/17 13:22 Dose: 2.5 mg Mirtazapine (Remeron) 15 mg PO HS [facility]; Protocol Stop: 10/30/17 20:59 Last Admin: 10/07/17 20:40 Dose: 15 mg Miscellaneous (Vte Chemical Prophylaxis Screen/ Admission) 1 ea MC PRN PRN PRN Reason: PROTOCOL Stop: 10/24/17 09:26 Miscellaneous (Probiotic Screen) 1 ea MC PRN PRN PRN Reason: PROTOCOL Stop: 12/06/17 09:44 Olanzapine (Zyprexa) 5 mg PO HS [facility]; Protocol Stop: 10/23/17 20:59 Last Admin: 10/07/17 20:40 Dose: 5 mg Sodium Phosphate (Fleet Enema) 135 ml RC DAILY PRN PRN Reason: Constipation Stop: 10/23/17 19:40 Theophylline (Elijah-Dur) 200 mg PO BID [facility] Stop: 11/23/17 16:59 Last Admin: 10/08/17 08:24 Dose: 200 mg General: demented, disheveled, thin, cachectic HEENT: NC/AT, PERRLA Neck: Supple, No JVD, No LAD Lungs: chest deformity present Cardiovascular: RRR, Normal S1, Normal S2, with murmur Abdomen: soft, non-tender, thin, positive bowel sound Extremities: excoriation, contracture, deformity Neurological: disorganized, muscle weakness, unable to follow command - Procedures Procedures: Procedures Procedure Code Date RECREATIONAL THERAPY 93.81 11/09/10 Internal Medicine Assmt/Plan - Assessment Assessment: s/p peg placement Failure to thrive severe protein-caloric malnutrition diabetes congestive heart failure acute on chronic renal insufficiency schizoaffective disorder hypertension hypokalemia dementia legally blind leukocytosis bedbound. noncompliant - Plan Plan: continue with gt ivf for hydration monitor electrolytes continue current plan of care Nutritional Asmnt/Malnutr-PDOC - Dietary Evaluation Malnutrition Findings (Please click <Entered> for more info): Nutritional Asmnt/Malnutrition Start: 08/25/17 17: 28 Text: Status: Complete Freq: Protocol: Document 08/25/17 17:28 LCHENG (Rec: 08/25/17 17:32 [email or web address]) Nutritional Asmnt/Malnutrition Patient General Information Nutritional Screening High Risk Consult Diagnosis dehydration, FTT Pertinent Medical Hx/Surgical Hx DM, CHF, kidney failure, schizophrenia, HTN, dementia, legally blind, noncompliance Subjective Information Consult received for poor oral intake. Pt seen resting in bed at time of visit. Per nurse note, pt refused breakfast and lunch today. Pt on calorie count noted. Current Diet Order/ Nutrition Support pureed, nectar thin liquid Pertinent Medications D5-0.45ns, colace, novolog, megace Pertinent Labs 08/25 K 3.0, glucose 106 Nutritional Hx/Data Height 5 ft 6 in Height (Calculated Centimeters) 167.6 Current Weight (lbs) 111 lb Weight (Calculated Kilograms) 50.3 Weight (Calculated Grams) 96521.8 [place] Body Weight 130 Body Mass Index (BMI) 17.9 Weight Status Underweight GI Symptoms GI Symptoms None Last BM none Skin Integrity/Comment: redness Estimated Nutritional Goals BEE in Kcals: Using Current wt Calories/Kcals/Kg 30-35 Kcals Calculated 8562-7502 Protein: Using Current wt Protein g/k.2 Protein Calculated 60 Fluid: ml 1500-1750ml (1ml/kcal) Nutritional Problem 1. Problem Problem inadequate food intake Etiology pt refusing to eat Signs/Symptoms: PO intake <25% since admission Malnutrition Alert Muscle Mass (Non-Severe) Mild Depletion Is there a minimum of two criteria No selected? Query Text:Check all the applicable criteria. A minimum of two criteria are recommended for diagnosis of either severe or non-severe malnutrition. Malnutrition Related to Morbid Obesity Malnutrition related to morbid obesity No Intervention/Recommendation Comments 1. Continue with current diet as ordered. Assist pt with meals and encourage oral intake. 2. Monitor PO intake, wt, labs and skin integrity 3. F/U as high risk in 2-3 days, 08/27-08/28 Expected Outcomes/Goals Expected Outcomes/Goals 1. PO intake to meet at least 75% of nutritional needs. 2. Wt stability, skin to remain intact, labs to approach WNL.
[2017-10-09] MEDS: INSULIN ASPART SLIDING SCALE 100 UNITS/ML UNIT SUBQ SCH ×4 (00:14→19:59)
[2017-10-09] MEDS: Levothyroxine 0.05 Mg Tab PO SCH (06:36)
[2017-10-09 06:44] LABS: % BASOPHILS 0.2 % (0.0-2.0); % EOSINOPHILS 1.2 % (0.0-5.0); % LYMPHOCYTES 16.4 % (20.0-50.0); % MONOCYTES 7.9 % (2.0-10.0); % NEUTROPHILS 74.3 % (40.0-80.0); EOSINOPHILE ABSOLUTE 0.1 Th/cmm (0.1-0.4); HEMATOCRIT 29.8 % (41.0-60); HEMOGLOBIN 9.9 gm/dL (12-16); LYMPHOCYTE ABSOLUTE 1.1 Th/cmm (1.5-3.0); MEAN CORPUSCULAR HEMOGLOBIN 30.8 pg (27.0-31.0); MEAN CORPUSCULAR HGB CONC 33.1 pg (28.0-36.0); MEAN PLATELET VOLUME 10.5 fl; MONOCYTE ABSOLUTE 0.6 Th/cmm (0.3-1.0); NEUTROPHILE ABSOLUTE 5.2 Th/cmm (1.8-8.0); PLATELET COUNT 315 Th/cmm (150-400); RED BLOOD COUNT 3.21 Mil/cmm (3.80-5.20); RED CELL DISTRIBUTION WIDTH 15.5 % (11.5-20.0)
[2017-10-09 07:14] LABS: ALB/GLOB RATIO 1.2 (1.0-1.8); ALBUMIN 3.3 gm/dL (3.7-5.3); ALKALINE PHOSPHATASE 53 U/L (34-104); ANION GAP 12.3 (7.0-16.0); BILIRUBIN,TOTAL 0.5 mg/dL (0.3-1.0); BUN - UREA NITROGEN 11 mg/dL (7-25); CALCIUM SERUM 9.6 mg/dL (8.6-10.3); CHLORIDE 112 mEq/L (98-107); CREATININE - SERUM 0.8 mg/dL (0.6-1.2); GFR AFRICAN-AMERICAN > 60.0 ml/min (>90); GFR NON AFRICAN-AMERICAN > 60.0 ml/min; GLUCOSE 120 mg/dL (70-105); MAGNESIUM 2.3 mg/dL (1.9-2.7); PHOSPHOROUS 3.5 mg/dL (2.5-5.0); SGOT 13 U/L (13-39); SGPT/ALT 21 U/L (7-52); SODIUM SERUM 144 mEq/L (136-145)
[2017-10-09 07:41] LABS: POTASSIUM SERUM 5.3 mEq/L (3.5-5.1)
[2017-10-09] MEDS: Theophylline 100 mg ER Tab PO SCH ×2 (08:09→16:06)
[2017-10-09] MEDS: Lactobacillus Rhamnosus GG 15 Billion CFU CAP.SPRINK PO SCH (08:09)
[2017-10-09] MEDS: Ammonium Lactate Cream 140 gm Tube TP SCH (08:12)
--- NOTE | 2017-10-09 14:12 | Internal Medicine Prog Note ---
Internal Medicine Subjective - Subjective Service Date: 10/09/17 Patient is:: awake, non-interactive, in bed, confused, other Patient Complaints of:: congestion Per staff patient has:: poor appetite, poor oral intake Internal Medicine Objective - Results Result Diagrams: 10/09/17 05:38 10/09/17 05:38 Recent Labs: Laboratory Last Values WBC 7.0 Th/cmm (4.8-10.8) 10/09/17 05:38 RBC 3.21 Mil/cmm (3.80-5.20) L 10/09/17 05:38 Hgb 9.9 gm/dL (12-16) L 10/09/17 05:38 Hct 29.8 % (41.0-60) L 10/09/17 05:38 MCV 93.0 fl (81-100) 10/09/17 05:38 MCH 30.8 pg (27.0-31.0) 10/09/17 05:38 MCHC Differential 33.1 pg (28.0-36.0) 10/09/17 05:38 RDW 15.5 % (11.5-20.0) 10/09/17 05:38 Plt Count 315 Th/cmm (150-400) 10/09/17 05:38 MPV 10.5 fl 10/09/17 05:38 Neutrophils % 74.3 % (40.0-80.0) 10/09/17 05:38 Lymphocytes % 16.4 % (20.0-50.0) L 10/09/17 05:38 Monocytes % 7.9 % (2.0-10.0) 10/09/17 05:38 Eosinophils % 1.2 % (0.0-5.0) 10/09/17 05:38 Basophils % 0.2 % (0.0-2.0) 10/09/17 05:38 PT 10.2 SECONDS (9.5-11.5) 10/06/17 04:40 INR 0.98 (0.5-1.4) 10/06/17 04:40 Sodium 144 mEq/L (136-145) 10/09/17 05:38 Potassium 5.3 mEq/L (3.5-5.1) H D 10/09/17 05:38 Chloride 112 mEq/L (98-107) H 10/09/17 05:38 Carbon Dioxide 25.0 mEq/L (21.0-31.0) 10/09/17 05:38 Anion Gap 12.3 (7.0-16.0) 10/09/17 05:38 BUN 11 mg/dL (7-25) 10/09/17 05:38 Creatinine 0.8 mg/dL (0.6-1.2) 10/09/17 05:38 Est GFR ( Amer) > 60.0 ml/min (>90) 10/09/17 05:38 Est GFR (Non-Af Amer) > 60.0 ml/min 10/09/17 05:38 BUN/Creatinine Ratio 13.8 10/09/17 05:38 Glucose 120 mg/dL (70-105) H 10/09/17 05:38 POC Glucose 117 MG/DL (70 - 105) H 10/09/17 11:56 Hemoglobin A1c % 5.2 % (4.0-6.0) 09/23/17 05:15 Calcium 9.6 mg/dL (8.6-10.3) 10/09/17 05:38 Phosphorus 3.5 mg/dL (2.5-5.0) 10/09/17 05:38 Magnesium 2.3 mg/dL (1.9-2.7) 10/09/17 05:38 Total Bilirubin 0.5 mg/dL (0.3-1.0) 10/09/17 05:38 Direct Bilirubin 0.11 mg/dL (0.0-0.2) 10/01/17 05:40 AST 13 U/L (13-39) 10/09/17 05:38 ALT 21 U/L (7-52) 10/09/17 05:38 Alkaline Phosphatase 53 U/L (34-104) 10/09/17 05:38 Ammonia 43 umol/L (16-53) 09/01/17 05:40 B-Natriuretic Peptide 71.5 pg/mL (5.0-100.0) 10/04/17 06:37 Total Protein 6.0 gm/dL (6.0-8.3) 10/09/17 05:38 Albumin 3.3 gm/dL (3.7-5.3) L 10/09/17 05:38 Globulin 2.7 gm/dL 10/09/17 05:38 Albumin/Globulin Ratio 1.2 (1.0-1.8) 10/09/17 05:38 Prealbumin 21 mg/dL (10-36) 10/01/17 05:40 Triglycerides 76 mg/dL (<150) 10/01/17 05:40 Cholesterol 140 mg/dL (<200) 10/01/17 05:40 Vitamin B12 790 pg/mL (232-1245) 09/01/17 05:40 Folic Acid 4.8 ng/mL (>3.0) 09/01/17 05:40 TSH 1.04 uIU/ml (0.34-5.60) 09/29/17 06:16 Urine Source [place] 08/29/17 13:45 Urine Color YELLOW 08/29/17 13:45 Urine Clarity SLIGHTLY HAZY (CLEAR) 08/29/17 13:45 Urine pH 7.5 (4.6 - 8.0) 08/29/17 13:45 Ur Specific [place] 1.010 (1.005-1.030) 08/29/17 13:45 Urine Protein NEGATIVE mg/dL (NEGATIVE) 08/29/17 13:45 Urine Glucose (UA) NEGATIVE mg/dL (NEGATIVE) 08/29/17 13:45 Urine Ketones NEGATIVE mg/dL (NEGATIVE) 08/29/17 13:45 Urine Blood TRACE (NEGATIVE) 08/29/17 13:45 Urine Nitrate NEGATIVE (NEGATIVE) 08/29/17 13:45 Urine Bilirubin NEGATIVE (NEGATIVE) 08/29/17 13:45 Urine Urobilinogen 0.2 E.U./dL (0.2 - 1.0) 08/29/17 13:45 Ur Leukocyte Esterase NEGATIVE (NEGATIVE) 08/29/17 13:45 Urine RBC 0-2 /hpf (0-5) 08/29/17 13:45 Urine WBC 0-2 /hpf (0-5) 08/29/17 13:45 Ur Epithelial Cells OCCASIONAL /lpf (FEW) 08/29/17 13:45 Urine Bacteria FEW /hpf (NONE SEEN) 08/29/17 13:45 Vancomycin Trough < 2.0 ug/mL (5-10) L 09/17/17 21:34 Hepatitis A IgM Ab Negative (Negative) 09/24/17 05:55 Hep Bs Antigen Negative (Negative) 09/24/17 05:55 Hep B Core IgM Ab Negative (Negative) 09/24/17 05:55 Hepatitis C Antibody 0.1 s/co ratio (0.0-0.9) 09/24/17 05:55 HIV 1&2 Antibody Screen NEGATIVE (NEG) 09/24/17 05:55 - Physical Exam Vitals and I&O: Vital Signs Temp 97.0 F 10/09/17 11:58 Pulse 89 10/09/17 11:58 Resp 18 10/09/17 11:58 BP 110/68 10/09/17 11:58 Pulse Ox 99 10/09/17 11:58 Intake & Output 10/08/17 10/09/17 10/09/17 18:59 06:59 18:59 Intake Total 1537.5 840 Output Total 1080 1100 Balance 457.5 -260 Weight (lbs) 97 lb 98 lb Intake: Intake, IV Amount 997.5 Dextrose 5% 1,000 ml @ 50 997.5 mls/hr IV .Q20H [facility] Rx#: [id number] Tube Feeding 540 540 Other 300 Output: Urine 1080 1100 Other: # Bowel Movements 1 [facility] Active Medications: Current Medications Acetaminophen (Tylenol) 650 mg GT Q4HR PRN PRN Reason: Pain or Fever >101 Stop: 10/23/17 19:40 Albuterol Sulfate (Albuterol 2.5mg/3ml Neb Ud) 2.5 mg HHN Q4HRT PRN PRN Reason: Shortness of Breath Stop: 10/23/17 19:40 Artificial Tears (Artificial Tears Ophth Soln) 1 drop EACH EYE Q2H PRN PRN Reason: Dry Eye Stop: 11/10/17 10:46 Bisacodyl (Dulcolax 10 Mg Supp) 10 mg RC DAILY PRN PRN Reason: Constipation Stop: 10/23/17 19:40 Last Admin: 10/08/17 13:35 Dose: 10 mg Docusate Sodium (Colace) 100 mg GT DAILY PRN PRN Reason: CONSTIPATION Stop: 10/24/17 08:59 Last Admin: 10/08/17 13:35 Dose: 100 mg Dextrose (D5w) 1,000 mls @ 50 mls/hr IV .Q20H [facility] Stop: 11/21/17 17:29 Last Admin: 10/08/17 13:42 Dose: 50 mls/hr Insulin Aspart (Novolog Insulin Sliding Scale) 0 units SUBQ Q6H [facility]; Protocol Stop: 11/28/17 17:59 Last Admin: 10/09/17 12:02 Dose: Not Given Ipratropium [place] (Atrovent Neb 0.5mg/2.5ml) 0.5 mg HHN Q4HRT PRN PRN Reason: Shortness of Breath or Wheeze Stop: 10/23/17 19:40 Lactic Acid (Lac-Hydrin Cream) 1 appl TP DAILY [facility] Stop: 10/24/17 08:59 Last Admin: 10/09/17 08:12 Dose: 1 appl Lactobacillus Rhamnosus (Culturelle 15b) 1 each PO DAILY [facility] Stop: 12/07/17 08:59 Last Admin: 10/09/17 08:09 Dose: 1 each Levothyroxine Sodium (Synthroid) 0.05 mg PO QDAC [facility] Stop: 12/07/17 07:29 Last Admin: 10/09/17 06:36 Dose: 0.05 mg Lorazepam (Ativan) 1 mg IV Q4H PRN; Protocol PRN Reason: Agitation Stop: 11/19/17 07:48 Last Admin: 10/04/17 22:55 Dose: 1 mg Magnesium Hydroxide (Milk Of Magnesia) 30 ml PO HS PRN PRN Reason: Constipation Stop: 10/23/17 19:40 Megestrol Acetate (Megace) 400 mg PO BID [facility] Stop: 10/24/17 08:59 Last Admin: 10/09/17 08:09 Dose: 400 mg Midodrine (Proamatine) 2.5 mg PO TID [facility] Stop: 11/20/17 20:59 Last Admin: 10/09/17 08:10 Dose: 2.5 mg Mirtazapine (Remeron) 15 mg PO HS [facility]; Protocol Stop: 10/30/17 20:59 Last Admin: 10/08/17 20:33 Dose: 15 mg Miscellaneous (Vte Chemical Prophylaxis Screen/ Admission) 1 ea MC PRN PRN PRN Reason: PROTOCOL Stop: 10/24/17 09:26 Miscellaneous (Probiotic Screen) 1 ea MC PRN PRN PRN Reason: PROTOCOL Stop: 12/06/17 09:44 Olanzapine (Zyprexa) 5 mg PO HS [facility]; Protocol Stop: 10/23/17 20:59 Last Admin: 10/08/17 20:33 Dose: 5 mg Sodium Phosphate (Fleet Enema) 135 ml RC DAILY PRN PRN Reason: Constipation Stop: 10/23/17 19:40 Theophylline (Elijah-Dur) 200 mg PO BID [facility] Stop: 11/23/17 16:59 Last Admin: 10/09/17 08:09 Dose: 200 mg General: demented, disheveled, thin, cachectic HEENT: NC/AT, PERRLA Neck: Supple, No JVD, No LAD Lungs: chest deformity present Cardiovascular: RRR, Normal S1, Normal S2, with murmur Abdomen: soft, non-tender, thin, positive bowel sound Extremities: excoriation, contracture, deformity Neurological: disorganized, muscle weakness, unable to follow command - Procedures Procedures: Procedures Procedure Code Date RECREATIONAL THERAPY 93.81 11/09/10 Internal Medicine Assmt/Plan - Assessment Assessment: s/p peg placement Failure to thrive severe protein-caloric malnutrition diabetes congestive heart failure acute on chronic renal insufficiency schizoaffective disorder hypertension hypokalemia dementia legally blind leukocytosis bedbound. noncompliant - Plan Plan: continue with gt ivf for hydration monitor electrolytes continue current plan of care Nutritional Asmnt/Malnutr-PDOC - Dietary Evaluation Malnutrition Findings (Please click <Entered> for more info): Nutritional Asmnt/Malnutrition Start: 08/25/17 17: 28 Text: Status: Complete Freq: Protocol: Document 08/25/17 17:28 LCHENG (Rec: 08/25/17 17:32 [email or web address]) Nutritional Asmnt/Malnutrition Patient General Information Nutritional Screening High Risk Consult Diagnosis dehydration, FTT Pertinent Medical Hx/Surgical Hx DM, CHF, kidney failure, schizophrenia, HTN, dementia, legally blind, noncompliance Subjective Information Consult received for poor oral intake. Pt seen resting in bed at time of visit. Per nurse note, pt refused breakfast and lunch today. Pt on calorie count noted. Current Diet Order/ Nutrition Support pureed, nectar thin liquid Pertinent Medications D5-0.45ns, colace, novolog, megace Pertinent Labs 7/2 K 3.0, glucose 106 Nutritional Hx/Data Height 5 ft 6 in Height (Calculated Centimeters) 167.6 Current Weight (lbs) 111 lb Weight (Calculated Kilograms) 50.3 Weight (Calculated Grams) 53148.8 [place] Body Weight 130 Body Mass Index (BMI) 17.9 Weight Status Underweight GI Symptoms GI Symptoms None Last BM none Skin Integrity/Comment: redness Estimated Nutritional Goals BEE in Kcals: Using Current wt Calories/Kcals/Kg 30-35 Kcals Calculated 2507-8956 Protein: Using Current wt Protein g/k.2 Protein Calculated 60 Fluid: ml 1500-1750ml (1ml/kcal) Nutritional Problem 1. Problem Problem inadequate food intake Etiology pt refusing to eat Signs/Symptoms: PO intake <25% since admission Malnutrition Alert Muscle Mass (Non-Severe) Mild Depletion Is there a minimum of two criteria No selected? Query Text:Check all the applicable criteria. A minimum of two criteria are recommended for diagnosis of either severe or non-severe malnutrition. Malnutrition Related to Morbid Obesity Malnutrition related to morbid obesity No Intervention/Recommendation Comments 1. Continue with current diet as ordered. Assist pt with meals and encourage oral intake. 2. Monitor PO intake, wt, labs and skin integrity 3. F/U as high risk in 2-3 days, 08/27-08/28 Expected Outcomes/Goals Expected Outcomes/Goals 1. PO intake to meet at least 75% of nutritional needs. 2. Wt stability, skin to remain intact, labs to approach WNL.
[2017-10-09] MEDS: Dextrose 5% 1,000 ML IV SCH (14:59)
[2017-10-10] MEDS: INSULIN ASPART SLIDING SCALE 100 UNITS/ML UNIT SUBQ SCH ×4 (00:52→18:30)
[2017-10-10] MEDS: Levothyroxine 0.05 Mg Tab PO SCH (06:49)
[2017-10-10 06:57] LABS: % BASOPHILS 0.7 % (0.0-2.0); % EOSINOPHILS 1.1 % (0.0-5.0); % LYMPHOCYTES 18.8 % (20.0-50.0); % MONOCYTES 7.5 % (2.0-10.0); % NEUTROPHILS 71.9 % (40.0-80.0); BASOPHILE ABSOLUTE 0.1 Th/cumm (0-0.2); EOSINOPHILE ABSOLUTE 0.1 Th/cmm (0.1-0.4); HEMATOCRIT 28.1 % (41.0-60); HEMOGLOBIN 9.5 gm/dL (12-16); LYMPHOCYTE ABSOLUTE 1.5 Th/cmm (1.5-3.0); MEAN CELL VOLUME 92.5 fl (81-100); MEAN CORPUSCULAR HEMOGLOBIN 31.3 pg (27.0-31.0); MEAN CORPUSCULAR HGB CONC 33.8 pg (28.0-36.0); MEAN PLATELET VOLUME 10.9 fl; MONOCYTE ABSOLUTE 0.6 Th/cmm (0.3-1.0); NEUTROPHILE ABSOLUTE 5.5 Th/cmm (1.8-8.0); PLATELET COUNT 312 Th/cmm (150-400); RED BLOOD COUNT 3.04 Mil/cmm (3.80-5.20); RED CELL DISTRIBUTION WIDTH 14.8 % (11.5-20.0); WHITE BLOOD COUNT 7.8 Th/cmm (4.8-10.8)
[2017-10-10 06:59] LABS: ALB/GLOB RATIO 1.2 (1.0-1.8); ALBUMIN 3.4 gm/dL (3.7-5.3); ALKALINE PHOSPHATASE 50 U/L (34-104); ANION GAP 12.3 (7.0-16.0); BILIRUBIN,TOTAL 0.5 mg/dL (0.3-1.0); BUN - UREA NITROGEN 13 mg/dL (7-25); CALCIUM SERUM 9.9 mg/dL (8.6-10.3); CARBON DIOXIDE 25.4 mEq/L (21.0-31.0); CHLORIDE 109 mEq/L (98-107); CREATININE - SERUM 0.9 mg/dL (0.6-1.2); GFR AFRICAN-AMERICAN > 60.0 ml/min (>90); GFR NON AFRICAN-AMERICAN > 60.0 ml/min; GLUCOSE 111 mg/dL (70-105); PHOSPHOROUS 3.2 mg/dL (2.5-5.0); POTASSIUM SERUM 4.7 mEq/L (3.5-5.1); SGOT 19 U/L (13-39); SGPT/ALT 27 U/L (7-52); SODIUM SERUM 142 mEq/L (136-145); TOTAL PROTEIN,SERUM 6.2 gm/dL (6.0-8.3)
[2017-10-10] MEDS: Ammonium Lactate Cream 140 gm Tube TP SCH (10:00)
[2017-10-10] MEDS: Theophylline 100 mg ER Tab PO SCH ×2 (10:00→17:30)
[2017-10-10] MEDS: Lactobacillus Rhamnosus GG 15 Billion CFU CAP.SPRINK PO SCH (10:00)
--- NOTE | 2017-10-10 12:52 | Internal Medicine Prog Note ---
Internal Medicine Subjective - Subjective Patient seen and examined:: with staff, chart reviewed Patient is:: awake, non-interactive, in bed, confused, other Patient Complaints of:: congestion Per staff patient has:: poor appetite, poor oral intake Internal Medicine Objective - Results Result Diagrams: 10/10/17 05:50 10/10/17 05:50 Recent Labs: Laboratory Last Values WBC 7.8 Th/cmm (4.8-10.8) 10/10/17 05:50 RBC 3.04 Mil/cmm (3.80-5.20) L 10/10/17 05:50 Hgb 9.5 gm/dL (12-16) L 10/10/17 05:50 Hct 28.1 % (41.0-60) L 10/10/17 05:50 MCV 92.5 fl (81-100) 10/10/17 05:50 MCH 31.3 pg (27.0-31.0) H 10/10/17 05:50 MCHC Differential 33.8 pg (28.0-36.0) 10/10/17 05:50 RDW 14.8 % (11.5-20.0) 10/10/17 05:50 Plt Count 312 Th/cmm (150-400) 10/10/17 05:50 MPV 10.9 fl 10/10/17 05:50 Neutrophils % 71.9 % (40.0-80.0) 10/10/17 05:50 Lymphocytes % 18.8 % (20.0-50.0) L 10/10/17 05:50 Monocytes % 7.5 % (2.0-10.0) 10/10/17 05:50 Eosinophils % 1.1 % (0.0-5.0) 10/10/17 05:50 Basophils % 0.7 % (0.0-2.0) 10/10/17 05:50 PT 10.2 SECONDS (9.5-11.5) 10/06/17 04:40 INR 0.98 (0.5-1.4) 10/06/17 04:40 Sodium 142 mEq/L (136-145) 10/10/17 05:50 Potassium 4.7 mEq/L (3.5-5.1) 10/10/17 05:50 Chloride 109 mEq/L (98-107) H 10/10/17 05:50 Carbon Dioxide 25.4 mEq/L (21.0-31.0) 10/10/17 05:50 Anion Gap 12.3 (7.0-16.0) 10/10/17 05:50 BUN 13 mg/dL (7-25) 10/10/17 05:50 Creatinine 0.9 mg/dL (0.6-1.2) 10/10/17 05:50 Est GFR ( Amer) > 60.0 ml/min (>90) 10/10/17 05:50 Est GFR (Non-Af Amer) > 60.0 ml/min 10/10/17 05:50 BUN/Creatinine Ratio 14.4 10/10/17 05:50 Glucose 111 mg/dL (70-105) H 10/10/17 05:50 POC Glucose 104 MG/DL (70 - 105) 10/10/17 05:51 Hemoglobin A1c % 5.2 % (4.0-6.0) 09/23/17 05:15 Calcium 9.9 mg/dL (8.6-10.3) 10/10/17 05:50 Phosphorus 3.2 mg/dL (2.5-5.0) 10/10/17 05:50 Magnesium 2.0 mg/dL (1.9-2.7) 10/10/17 05:50 Total Bilirubin 0.5 mg/dL (0.3-1.0) 10/10/17 05:50 Direct Bilirubin 0.11 mg/dL (0.0-0.2) 10/01/17 05:40 AST 19 U/L (13-39) 10/10/17 05:50 ALT 27 U/L (7-52) 10/10/17 05:50 Alkaline Phosphatase 50 U/L (34-104) 10/10/17 05:50 Ammonia 43 umol/L (16-53) 09/01/17 05:40 B-Natriuretic Peptide 71.5 pg/mL (5.0-100.0) 10/04/17 06:37 Total Protein 6.2 gm/dL (6.0-8.3) 10/10/17 05:50 Albumin 3.4 gm/dL (3.7-5.3) L 10/10/17 05:50 Globulin 2.8 gm/dL 10/10/17 05:50 Albumin/Globulin Ratio 1.2 (1.0-1.8) 10/10/17 05:50 Prealbumin 21 mg/dL (10-36) 10/01/17 05:40 Triglycerides 76 mg/dL (<150) 10/01/17 05:40 Cholesterol 140 mg/dL (<200) 10/01/17 05:40 Vitamin B12 790 pg/mL (232-1245) 09/01/17 05:40 Folic Acid 4.8 ng/mL (>3.0) 09/01/17 05:40 TSH 1.04 uIU/ml (0.34-5.60) 09/29/17 06:16 Urine Source [place] 08/29/17 13:45 Urine Color YELLOW 08/29/17 13:45 Urine Clarity SLIGHTLY HAZY (CLEAR) 08/29/17 13:45 Urine pH 7.5 (4.6 - 8.0) 08/29/17 13:45 Ur Specific [place] 1.010 (1.005-1.030) 08/29/17 13:45 Urine Protein NEGATIVE mg/dL (NEGATIVE) 08/29/17 13:45 Urine Glucose (UA) NEGATIVE mg/dL (NEGATIVE) 08/29/17 13:45 Urine Ketones NEGATIVE mg/dL (NEGATIVE) 08/29/17 13:45 Urine Blood TRACE (NEGATIVE) 08/29/17 13:45 Urine Nitrate NEGATIVE (NEGATIVE) 08/29/17 13:45 Urine Bilirubin NEGATIVE (NEGATIVE) 08/29/17 13:45 Urine Urobilinogen 0.2 E.U./dL (0.2 - 1.0) 08/29/17 13:45 Ur Leukocyte Esterase NEGATIVE (NEGATIVE) 08/29/17 13:45 Urine RBC 0-2 /hpf (0-5) 08/29/17 13:45 Urine WBC 0-2 /hpf (0-5) 08/29/17 13:45 Ur Epithelial Cells OCCASIONAL /lpf (FEW) 08/29/17 13:45 Urine Bacteria FEW /hpf (NONE SEEN) 08/29/17 13:45 Vancomycin Trough < 2.0 ug/mL (5-10) L 09/17/17 21:34 Hepatitis A IgM Ab Negative (Negative) 09/24/17 05:55 Hep Bs Antigen Negative (Negative) 09/24/17 05:55 Hep B Core IgM Ab Negative (Negative) 09/24/17 05:55 Hepatitis C Antibody 0.1 s/co ratio (0.0-0.9) 09/24/17 05:55 HIV 1&2 Antibody Screen NEGATIVE (NEG) 09/24/17 05:55 - Physical Exam Vitals and I&O: Vital Signs Temp 97.4 F 10/10/17 12:32 Pulse 64 10/10/17 12:32 Resp 18 10/10/17 12:32 BP 120/75 10/10/17 12:32 Pulse Ox 99 10/10/17 12:32 Intake & Output 10/09/17 10/10/17 10/10/17 18:59 06:59 18:59 Intake Total 1000 540 Output Total 1700 Balance 1000 -1160 Weight (lbs) 44.452 kg Intake: Intake, IV Amount 1000 Dextrose 5% 1,000 ml @ 50 1000 mls/hr IV .Q20H [facility] Rx#: [id number] Tube Feeding 540 Output: Urine 1700 Other: Weight Source Bedscale Active Medications: Current Medications Acetaminophen (Tylenol) 650 mg GT Q4HR PRN PRN Reason: Pain or Fever >101 Stop: 10/23/17 19:40 Albuterol Sulfate (Albuterol 2.5mg/3ml Neb Ud) 2.5 mg HHN Q4HRT PRN PRN Reason: Shortness of Breath Stop: 10/23/17 19:40 Artificial Tears (Artificial Tears Ophth Soln) 1 drop EACH EYE Q2H PRN PRN Reason: Dry Eye Stop: 11/10/17 10:46 Bisacodyl (Dulcolax 10 Mg Supp) 10 mg RC DAILY PRN PRN Reason: Constipation Stop: 10/23/17 19:40 Last Admin: 10/08/17 13:35 Dose: 10 mg Docusate Sodium (Colace) 100 mg GT DAILY PRN PRN Reason: CONSTIPATION Stop: 10/24/17 08:59 Last Admin: 10/08/17 13:35 Dose: 100 mg Dextrose (D5w) 1,000 mls @ 50 mls/hr IV .Q20H FOZIA Stop: 11/21/17 17:29 Last Admin: 10/09/17 14:59 Dose: 50 mls/hr Insulin Aspart (Novolog Insulin Sliding Scale) 0 units SUBQ Q6H FOZIA; Protocol Stop: 11/28/17 17:59 Last Admin: 10/10/17 05:54 Dose: Not Given Ipratropium [place] (Atrovent Neb 0.5mg/2.5ml) 0.5 mg HHN Q4HRT PRN PRN Reason: Shortness of Breath or Wheeze Stop: 10/23/17 19:40 Lactic Acid (Lac-Hydrin Cream) 1 appl TP DAILY FOZIA Stop: 10/24/17 08:59 Last Admin: 10/09/17 08:12 Dose: 1 appl Lactobacillus Rhamnosus (Culturelle 15b) 1 each PO DAILY FOZIA Stop: 12/07/17 08:59 Last Admin: 10/09/17 08:09 Dose: 1 each Levothyroxine Sodium (Synthroid) 0.05 mg PO QDAC FOZIA Stop: 12/07/17 07:29 Last Admin: 10/10/17 06:49 Dose: 0.05 mg Lorazepam (Ativan) 1 mg IV Q4H PRN; Protocol PRN Reason: Agitation Stop: 11/19/17 07:48 Last Admin: 10/04/17 22:55 Dose: 1 mg Magnesium Hydroxide (Milk Of Magnesia) 30 ml PO HS PRN PRN Reason: Constipation Stop: 10/23/17 19:40 Megestrol Acetate (Megace) 400 mg PO BID FOZIA Stop: 10/24/17 08:59 Last Admin: 10/09/17 16:07 Dose: 400 mg Midodrine (Proamatine) 2.5 mg PO TID FOZIA Stop: 11/20/17 20:59 Last Admin: 10/09/17 20:33 Dose: 2.5 mg Mirtazapine (Remeron) 15 mg PO HS FOZIA; Protocol Stop: 10/30/17 20:59 Last Admin: 10/09/17 20:33 Dose: 15 mg Miscellaneous (Vte Chemical Prophylaxis Screen/ Admission) 1 ea MC PRN PRN PRN Reason: PROTOCOL Stop: 10/24/17 09:26 Miscellaneous (Probiotic Screen) 1 ea MC PRN PRN PRN Reason: PROTOCOL Stop: 12/06/17 09:44 Olanzapine (Zyprexa) 5 mg PO HS FOZIA; Protocol Stop: 10/23/17 20:59 Last Admin: 10/09/17 20:33 Dose: 5 mg Sodium Phosphate (Fleet Enema) 135 ml RC DAILY PRN PRN Reason: Constipation Stop: 10/23/17 19:40 Theophylline (Elijah-Dur) 200 mg PO BID FOZIA Stop: 11/23/17 16:59 Last Admin: 10/09/17 16:06 Dose: 200 mg General: demented, disheveled, thin, cachectic HEENT: NC/AT, PERRLA Neck: Supple, No JVD, No LAD Lungs: chest deformity present Cardiovascular: RRR, Normal S1, Normal S2, with murmur Abdomen: soft, non-tender, thin, positive bowel sound Extremities: excoriation, contracture, deformity Neurological: disorganized, muscle weakness, unable to follow command - Procedures Procedures: Procedures Procedure Code Date RECREATIONAL THERAPY 93.81 11/09/10 Internal Medicine Assmt/Plan - Assessment Assessment: ASSESSMENT AND PLAN: Failure to thrive, poor p.o. intake, severe protein-caloric malnutrition, diabetes, congestive heart failure, acute on chronic renal insufficiency, schizoaffective disorder, hypertension, hypokalemia, dementia, legally blind, leukocytosis, and bedbound. - Plan Plan: plan paperworks to be submitted to court fileed up several times We will continue the patient on oxygen and bronchodilator treatments. We will continue with __ivf__. We will perform calorie count. If intake is poor, he may consider alternative means of feeding. We will try to get all the conservative as far as the advance directive, continue with current care with followup consult and recommendations. Psych is following. Nutritional Asmnt/Malnutr-PDOC - Dietary Evaluation Malnutrition Findings (Please click <Entered> for more info): Nutritional Asmnt/Malnutrition Start: 08/25/17 17: 28 Text: Status: Complete Freq: Protocol: Document 08/25/17 17:28 LCHENG (Rec: 08/25/17 17:32 [email or web address]) Nutritional Asmnt/Malnutrition Patient General Information Nutritional Screening High Risk Consult Diagnosis dehydration, FTT Pertinent Medical Hx/Surgical Hx DM, CHF, kidney failure, schizophrenia, HTN, dementia, legally blind, noncompliance Subjective Information Consult received for poor oral intake. Pt seen resting in bed at time of visit. Per nurse note, pt refused breakfast and lunch today. Pt on calorie count noted. Current Diet Order/ Nutrition Support pureed, nectar thin liquid Pertinent Medications D5-0.45ns, colace, novolog, megace Pertinent Labs 08/25 K 3.0, glucose 106 Nutritional Hx/Data Height 1.68 m Height (Calculated Centimeters) 167.6 Current Weight (lbs) 50.349 kg Weight (Calculated Kilograms) 50.3 Weight (Calculated Grams) 76560.8 [place] Body Weight 130 Body Mass Index (BMI) 17.9 Weight Status Underweight GI Symptoms GI Symptoms None Last BM none Skin Integrity/Comment: redness Estimated Nutritional Goals BEE in Kcals: Using Current wt Calories/Kcals/Kg 30-35 Kcals Calculated 4369-0883 Protein: Using Current wt Protein g/k.2 Protein Calculated 60 Fluid: ml 1500-1750ml (1ml/kcal) Nutritional Problem 1. Problem Problem inadequate food intake Etiology pt refusing to eat Signs/Symptoms: PO intake <25% since admission Malnutrition Alert Muscle Mass (Non-Severe) Mild Depletion Is there a minimum of two criteria No selected? Query Text:Check all the applicable criteria. A minimum of two criteria are recommended for diagnosis of either severe or non-severe malnutrition. Malnutrition Related to Morbid Obesity Malnutrition related to morbid obesity No Intervention/Recommendation Comments 1. Continue with current diet as ordered. Assist pt with meals and encourage oral intake. 2. Monitor PO intake, wt, labs and skin integrity 3. F/U as high risk in 2-3 days, 08/27-08/28 Expected Outcomes/Goals Expected Outcomes/Goals 1. PO intake to meet at least 75% of nutritional needs. 2. Wt stability, skin to remain intact, labs to approach WNL.
[2017-10-11] MEDS: INSULIN ASPART SLIDING SCALE 100 UNITS/ML UNIT SUBQ SCH ×4 (00:15→18:19)
[2017-10-11] MEDS ORDERED: Dextrose 50% 50 mL Abboject IVP ONE (05:59)
[2017-10-11] MEDS: Levothyroxine 0.05 Mg Tab PO SCH (06:44)
[2017-10-11] MEDS: Theophylline 100 mg ER Tab PO SCH ×2 (09:10→17:44)
[2017-10-11] MEDS: Ammonium Lactate Cream 140 gm Tube TP SCH (09:11)
[2017-10-11] MEDS: Lactobacillus Rhamnosus GG 15 Billion CFU CAP.SPRINK PO SCH (09:11)
[2017-10-11 10:06] LABS: ALB/GLOB RATIO 1.2 (1.0-1.8); ALBUMIN 3.4 gm/dL (3.7-5.3); ALKALINE PHOSPHATASE 50 U/L (34-104); ANION GAP 12.6 (7.0-16.0); BILIRUBIN,TOTAL 0.4 mg/dL (0.3-1.0); BUN - UREA NITROGEN 20 mg/dL (7-25); CALCIUM SERUM 9.9 mg/dL (8.6-10.3); CARBON DIOXIDE 24.5 mEq/L (21.0-31.0); CHLORIDE 108 mEq/L (98-107); CREATININE - SERUM 0.9 mg/dL (0.6-1.2); GFR AFRICAN-AMERICAN > 60.0 ml/min (>90); GFR NON AFRICAN-AMERICAN > 60.0 ml/min; GLUCOSE 140 mg/dL (70-105); MAGNESIUM 1.9 mg/dL (1.9-2.7); PHOSPHOROUS 2.7 mg/dL (2.5-5.0); POTASSIUM SERUM 4.1 mEq/L (3.5-5.1); SGOT 21 U/L (13-39); SGPT/ALT 32 U/L (7-52); SODIUM SERUM 141 mEq/L (136-145); TOTAL PROTEIN,SERUM 6.3 gm/dL (6.0-8.3)
--- NOTE | 2017-10-11 14:24 | Internal Medicine Prog Note ---
Internal Medicine Subjective - Subjective Patient seen and examined:: with staff, chart reviewed Patient is:: awake, non-interactive, in bed, agitated, confused, other Patient Complaints of:: congestion Per staff patient has:: poor appetite, poor oral intake Internal Medicine Objective - Results Result Diagrams: 10/10/17 05:50 10/11/17 09:40 Recent Labs: Laboratory Last Values WBC 7.8 Th/cmm (4.8-10.8) 10/10/17 05:50 RBC 3.04 Mil/cmm (3.80-5.20) L 10/10/17 05:50 Hgb 9.5 gm/dL (12-16) L 10/10/17 05:50 Hct 28.1 % (41.0-60) L 10/10/17 05:50 MCV 92.5 fl (81-100) 10/10/17 05:50 MCH 31.3 pg (27.0-31.0) H 10/10/17 05:50 MCHC Differential 33.8 pg (28.0-36.0) 10/10/17 05:50 RDW 14.8 % (11.5-20.0) 10/10/17 05:50 Plt Count 312 Th/cmm (150-400) 10/10/17 05:50 MPV 10.9 fl 10/10/17 05:50 Neutrophils % 71.9 % (40.0-80.0) 10/10/17 05:50 Lymphocytes % 18.8 % (20.0-50.0) L 10/10/17 05:50 Monocytes % 7.5 % (2.0-10.0) 10/10/17 05:50 Eosinophils % 1.1 % (0.0-5.0) 10/10/17 05:50 Basophils % 0.7 % (0.0-2.0) 10/10/17 05:50 PT 10.2 SECONDS (9.5-11.5) 10/06/17 04:40 INR 0.98 (0.5-1.4) 10/06/17 04:40 Sodium 141 mEq/L (136-145) 10/11/17 09:40 Potassium 4.1 mEq/L (3.5-5.1) 10/11/17 09:40 Chloride 108 mEq/L (98-107) H 10/11/17 09:40 Carbon Dioxide 24.5 mEq/L (21.0-31.0) 10/11/17 09:40 Anion Gap 12.6 (7.0-16.0) 10/11/17 09:40 BUN 20 mg/dL (7-25) 10/11/17 09:40 Creatinine 0.9 mg/dL (0.6-1.2) 10/11/17 09:40 Est GFR ( Amer) > 60.0 ml/min (>90) 10/11/17 09:40 Est GFR (Non-Af Amer) > 60.0 ml/min 10/11/17 09:40 BUN/Creatinine Ratio 22.2 10/11/17 09:40 Glucose 140 mg/dL (70-105) H 10/11/17 09:40 POC Glucose 83 MG/DL (70 - 105) 10/11/17 12:05 Hemoglobin A1c % 5.2 % (4.0-6.0) 09/23/17 05:15 Calcium 9.9 mg/dL (8.6-10.3) 10/11/17 09:40 Phosphorus 2.7 mg/dL (2.5-5.0) 10/11/17 09:40 Magnesium 1.9 mg/dL (1.9-2.7) 10/11/17 09:40 Total Bilirubin 0.4 mg/dL (0.3-1.0) 10/11/17 09:40 Direct Bilirubin 0.11 mg/dL (0.0-0.2) 10/01/17 05:40 AST 21 U/L (13-39) 10/11/17 09:40 ALT 32 U/L (7-52) 10/11/17 09:40 Alkaline Phosphatase 50 U/L (34-104) 10/11/17 09:40 Ammonia 43 umol/L (16-53) 09/01/17 05:40 B-Natriuretic Peptide 71.5 pg/mL (5.0-100.0) 10/04/17 06:37 Total Protein 6.3 gm/dL (6.0-8.3) 10/11/17 09:40 Albumin 3.4 gm/dL (3.7-5.3) L 10/11/17 09:40 Globulin 2.9 gm/dL 10/11/17 09:40 Albumin/Globulin Ratio 1.2 (1.0-1.8) 10/11/17 09:40 Prealbumin 21 mg/dL (10-36) 10/01/17 05:40 Triglycerides 76 mg/dL (<150) 10/01/17 05:40 Cholesterol 140 mg/dL (<200) 10/01/17 05:40 Vitamin B12 790 pg/mL (232-1245) 09/01/17 05:40 Folic Acid 4.8 ng/mL (>3.0) 09/01/17 05:40 TSH 1.04 uIU/ml (0.34-5.60) 09/29/17 06:16 Urine Source [place] 08/29/17 13:45 Urine Color YELLOW 08/29/17 13:45 Urine Clarity SLIGHTLY HAZY (CLEAR) 08/29/17 13:45 Urine pH 7.5 (4.6 - 8.0) 08/29/17 13:45 Ur Specific [place] 1.010 (1.005-1.030) 08/29/17 13:45 Urine Protein NEGATIVE mg/dL (NEGATIVE) 08/29/17 13:45 Urine Glucose (UA) NEGATIVE mg/dL (NEGATIVE) 08/29/17 13:45 Urine Ketones NEGATIVE mg/dL (NEGATIVE) 08/29/17 13:45 Urine Blood TRACE (NEGATIVE) 08/29/17 13:45 Urine Nitrate NEGATIVE (NEGATIVE) 08/29/17 13:45 Urine Bilirubin NEGATIVE (NEGATIVE) 08/29/17 13:45 Urine Urobilinogen 0.2 E.U./dL (0.2 - 1.0) 08/29/17 13:45 Ur Leukocyte Esterase NEGATIVE (NEGATIVE) 08/29/17 13:45 Urine RBC 0-2 /hpf (0-5) 08/29/17 13:45 Urine WBC 0-2 /hpf (0-5) 08/29/17 13:45 Ur Epithelial Cells OCCASIONAL /lpf (FEW) 08/29/17 13:45 Urine Bacteria FEW /hpf (NONE SEEN) 08/29/17 13:45 Vancomycin Trough < 2.0 ug/mL (5-10) L 09/17/17 21:34 Hepatitis A IgM Ab Negative (Negative) 09/24/17 05:55 Hep Bs Antigen Negative (Negative) 09/24/17 05:55 Hep B Core IgM Ab Negative (Negative) 09/24/17 05:55 Hepatitis C Antibody 0.1 s/co ratio (0.0-0.9) 09/24/17 05:55 HIV 1&2 Antibody Screen NEGATIVE (NEG) 09/24/17 05:55 - Physical Exam Vitals and I&O: Vital Signs Temp 97.3 F 10/11/17 13:00 Pulse 60 10/11/17 13:00 Resp 20 10/11/17 13:00 BP 97/55 10/11/17 13:00 Pulse Ox 94 10/11/17 12:00 Intake & Output 10/10/17 10/11/17 10/11/17 18:59 06:59 18:59 Intake Total 680 Output Total 1300 Balance -620 Weight (lbs) 45.042 kg Intake: Tube Feeding 480 Other 200 Output: Urine 1300 Other: Weight Source Bedscale Active Medications: Current Medications Acetaminophen (Tylenol) 650 mg GT Q4HR PRN PRN Reason: Pain or Fever >101 Stop: 10/23/17 19:40 Albuterol Sulfate (Albuterol 2.5mg/3ml Neb Ud) 2.5 mg HHN Q4HRT PRN PRN Reason: Shortness of Breath Stop: 10/23/17 19:40 Artificial Tears (Artificial Tears Ophth Soln) 1 drop EACH EYE Q2H PRN PRN Reason: Dry Eye Stop: 11/10/17 10:46 Bisacodyl (Dulcolax 10 Mg Supp) 10 mg RC DAILY PRN PRN Reason: Constipation Stop: 10/23/17 19:40 Last Admin: 10/08/17 13:35 Dose: 10 mg Docusate Sodium (Colace) 100 mg GT DAILY PRN PRN Reason: CONSTIPATION Stop: 10/24/17 08:59 Last Admin: 10/08/17 13:35 Dose: 100 mg Insulin Aspart (Novolog Insulin Sliding Scale) 0 units SUBQ Q6H FOZIA; Protocol Stop: 11/28/17 17:59 Last Admin: 10/11/17 13:25 Dose: Not Given Ipratropium [place] (Atrovent Neb 0.5mg/2.5ml) 0.5 mg HHN Q4HRT PRN PRN Reason: Shortness of Breath or Wheeze Stop: 10/23/17 19:40 Lactic Acid (Lac-Hydrin Cream) 1 appl TP DAILY FOZIA Stop: 10/24/17 08:59 Last Admin: 10/11/17 09:11 Dose: 1 appl Lactobacillus Rhamnosus (Culturelle 15b) 1 each PO DAILY FOZIA Stop: 12/07/17 08:59 Last Admin: 10/11/17 09:11 Dose: 1 each Levothyroxine Sodium (Synthroid) 0.05 mg PO QDAC FOZIA Stop: 12/07/17 07:29 Last Admin: 10/11/17 06:44 Dose: 0.05 mg Lorazepam (Ativan) 1 mg IV Q4H PRN; Protocol PRN Reason: Agitation Stop: 11/19/17 07:48 Last Admin: 10/11/17 06:21 Dose: 1 mg Lorazepam (Ativan) 1 mg PO Q6HR PRN; Protocol PRN Reason: Agitation Stop: 12/10/17 14:21 Magnesium Hydroxide (Milk Of Magnesia) 30 ml PO HS PRN PRN Reason: Constipation Stop: 10/23/17 19:40 Megestrol Acetate (Megace) 400 mg PO BID FOZIA Stop: 10/24/17 08:59 Last Admin: 10/11/17 09:10 Dose: 400 mg Midodrine (Proamatine) 2.5 mg PO TID FOZIA Stop: 11/20/17 20:59 Last Admin: 10/11/17 14:17 Dose: 2.5 mg Mirtazapine (Remeron) 15 mg PO HS FOZIA; Protocol Stop: 10/30/17 20:59 Last Admin: 10/10/17 21:31 Dose: 15 mg Miscellaneous (Vte Chemical Prophylaxis Screen/ Admission) 1 ea MC PRN PRN PRN Reason: PROTOCOL Stop: 10/24/17 09:26 Miscellaneous (Probiotic Screen) 1 ea MC PRN PRN PRN Reason: PROTOCOL Stop: 12/06/17 09:44 Olanzapine (Zyprexa) 5 mg PO HS FOZIA; Protocol Stop: 10/23/17 20:59 Last Admin: 10/10/17 21:32 Dose: 5 mg Sodium Phosphate (Fleet Enema) 135 ml RC DAILY PRN PRN Reason: Constipation Stop: 10/23/17 19:40 Theophylline (Elijah-Dur) 200 mg PO BID FOZIA Stop: 11/23/17 16:59 Last Admin: 10/11/17 09:10 Dose: 200 mg General: demented, disheveled, thin, cachectic HEENT: NC/AT, PERRLA Neck: Supple, No JVD, No LAD Lungs: chest deformity present Cardiovascular: RRR, Normal S1, Normal S2, with murmur Abdomen: soft, non-tender, thin, positive bowel sound Extremities: excoriation, contracture, deformity Neurological: disorganized, muscle weakness, unable to follow command - Procedures Procedures: Procedures Procedure Code Date RECREATIONAL THERAPY 93.81 11/09/10 Internal Medicine Assmt/Plan - Assessment Assessment: ASSESSMENT AND PLAN: Failure to thrive, poor p.o. intake, severe protein-caloric malnutrition, diabetes, congestive heart failure, acute on chronic renal insufficiency, schizoaffective disorder, hypertension, hypokalemia, dementia, legally blind, leukocytosis, and bedbound. - Plan Plan: plan We will continue the patient on oxygen and bronchodilator treatments. We will continue with __ivf__. We will perform calorie count. If intake is poor, he may consider alternative means of feeding. We will try to get all the conservative as far as the advance directive, continue with current care with followup consult and recommendations. Psych is following. cont on gt feeding Nutritional Asmnt/Malnutr-PDOC - Dietary Evaluation Malnutrition Findings (Please click <Entered> for more info): Nutritional Asmnt/Malnutrition Start: 08/25/17 17: 28 Text: Status: Complete Freq: Protocol: Document 08/25/17 17:28 LCHEN (Rec: 08/25/17 17:32 [email or web address]) Nutritional Asmnt/Malnutrition Patient General Information Nutritional Screening High Risk Consult Diagnosis dehydration, FTT Pertinent Medical Hx/Surgical Hx DM, CHF, kidney failure, schizophrenia, HTN, dementia, legally blind, noncompliance Subjective Information Consult received for poor oral intake. Pt seen resting in bed at time of visit. Per nurse note, pt refused breakfast and lunch today. Pt on calorie count noted. Current Diet Order/ Nutrition Support pureed, nectar thin liquid Pertinent Medications D5-0.45ns, colace, novolog, megace Pertinent Labs 7/ K 3.0, glucose 106 Nutritional Hx/Data Height 1.68 m Height (Calculated Centimeters) 167.6 Current Weight (lbs) 50.349 kg Weight (Calculated Kilograms) 50.3 Weight (Calculated Grams) 45213.8 [place] Body Weight 130 Body Mass Index (BMI) 17.9 Weight Status Underweight GI Symptoms GI Symptoms None Last BM none Skin Integrity/Comment: redness Estimated Nutritional Goals BEE in Kcals: Using Current wt Calories/Kcals/Kg 30-35 Kcals Calculated 5564-3858 Protein: Using Current wt Protein g/k.2 Protein Calculated 60 Fluid: ml 1500-1750ml (1ml/kcal) Nutritional Problem 1. Problem Problem inadequate food intake Etiology pt refusing to eat Signs/Symptoms: PO intake <25% since admission Malnutrition Alert Muscle Mass (Non-Severe) Mild Depletion Is there a minimum of two criteria No selected? Query Text:Check all the applicable criteria. A minimum of two criteria are recommended for diagnosis of either severe or non-severe malnutrition. Malnutrition Related to Morbid Obesity Malnutrition related to morbid obesity No Intervention/Recommendation Comments 1. Continue with current diet as ordered. Assist pt with meals and encourage oral intake. 2. Monitor PO intake, wt, labs and skin integrity 3. F/U as high risk in 2-3 days, 08/27-08/28 Expected Outcomes/Goals Expected Outcomes/Goals 1. PO intake to meet at least 75% of nutritional needs. 2. Wt stability, skin to remain intact, labs to approach WNL.
[2017-10-12] MEDS: INSULIN ASPART SLIDING SCALE 100 UNITS/ML UNIT SUBQ SCH ×4 (00:01→17:57)
[2017-10-12 05:42] LABS: ALB/GLOB RATIO 1.2 (1.0-1.8); ALBUMIN 3.8 gm/dL (3.7-5.3); ALKALINE PHOSPHATASE 50 U/L (34-104); ANION GAP 10.6 (7.0-16.0); BILIRUBIN,TOTAL 0.5 mg/dL (0.3-1.0); BUN - UREA NITROGEN 22 mg/dL (7-25); CALCIUM SERUM 10.3 mg/dL (8.6-10.3); CARBON DIOXIDE 28.3 mEq/L (21.0-31.0); CHLORIDE 107 mEq/L (98-107); CREATININE - SERUM 0.9 mg/dL (0.6-1.2); GFR AFRICAN-AMERICAN > 60.0 ml/min (>90); GFR NON AFRICAN-AMERICAN > 60.0 ml/min; GLUCOSE 90 mg/dL (70-105); PHOSPHOROUS 2.7 mg/dL (2.5-5.0); POTASSIUM SERUM 3.9 mEq/L (3.5-5.1); SGOT 19 U/L (13-39); SGPT/ALT 34 U/L (7-52); SODIUM SERUM 142 mEq/L (136-145); TOTAL PROTEIN,SERUM 6.9 gm/dL (6.0-8.3)
[2017-10-12] MEDS: Levothyroxine 0.05 Mg Tab PO SCH (06:40)
[2017-10-12] MEDS: Theophylline 100 mg ER Tab PO SCH ×2 (09:41→17:57)
[2017-10-12] MEDS: Ammonium Lactate Cream 140 gm Tube TP SCH (09:42)
[2017-10-12] MEDS: Lactobacillus Rhamnosus GG 15 Billion CFU CAP.SPRINK PO SCH (09:42)
[2017-10-12] MEDS: Docusate Sodium 100 mg/10 mL UD GT PRN (09:42)
[2017-10-12] MEDS ORDERED: Haldol Oral Sol.(concentrate) 10 mg/5 mL Udc PO PRN (11:57)
--- NOTE | 2017-10-12 13:40 | Internal Medicine Prog Note ---
Internal Medicine Subjective - Subjective Patient seen and examined:: with staff, chart reviewed Patient is:: awake, non-interactive, in bed, agitated, confused, other Patient Complaints of:: congestion Per staff patient has:: poor appetite, poor oral intake Internal Medicine Objective - Results Result Diagrams: 10/10/17 05:50 10/12/17 04:35 Recent Labs: Laboratory Last Values WBC 7.8 Th/cmm (4.8-10.8) 10/10/17 05:50 RBC 3.04 Mil/cmm (3.80-5.20) L 10/10/17 05:50 Hgb 9.5 gm/dL (12-16) L 10/10/17 05:50 Hct 28.1 % (41.0-60) L 10/10/17 05:50 MCV 92.5 fl (81-100) 10/10/17 05:50 MCH 31.3 pg (27.0-31.0) H 10/10/17 05:50 MCHC Differential 33.8 pg (28.0-36.0) 10/10/17 05:50 RDW 14.8 % (11.5-20.0) 10/10/17 05:50 Plt Count 312 Th/cmm (150-400) 10/10/17 05:50 MPV 10.9 fl 10/10/17 05:50 Neutrophils % 71.9 % (40.0-80.0) 10/10/17 05:50 Lymphocytes % 18.8 % (20.0-50.0) L 10/10/17 05:50 Monocytes % 7.5 % (2.0-10.0) 10/10/17 05:50 Eosinophils % 1.1 % (0.0-5.0) 10/10/17 05:50 Basophils % 0.7 % (0.0-2.0) 10/10/17 05:50 PT 10.2 SECONDS (9.5-11.5) 10/06/17 04:40 INR 0.98 (0.5-1.4) 10/06/17 04:40 Sodium 142 mEq/L (136-145) 10/12/17 04:35 Potassium 3.9 mEq/L (3.5-5.1) 10/12/17 04:35 Chloride 107 mEq/L (98-107) 10/12/17 04:35 Carbon Dioxide 28.3 mEq/L (21.0-31.0) 10/12/17 04:35 Anion Gap 10.6 (7.0-16.0) 10/12/17 04:35 BUN 22 mg/dL (7-25) 10/12/17 04:35 Creatinine 0.9 mg/dL (0.6-1.2) 10/12/17 04:35 Est GFR ( Amer) > 60.0 ml/min (>90) 10/12/17 04:35 Est GFR (Non-Af Amer) > 60.0 ml/min 10/12/17 04:35 BUN/Creatinine Ratio 24.4 10/12/17 04:35 Glucose 90 mg/dL (70-105) 10/12/17 04:35 POC Glucose 110 MG/DL (70 - 105) H 10/12/17 12:07 Hemoglobin A1c % 5.2 % (4.0-6.0) 09/23/17 05:15 Calcium 10.3 mg/dL (8.6-10.3) 10/12/17 04:35 Phosphorus 2.7 mg/dL (2.5-5.0) 10/12/17 04:35 Magnesium 2.0 mg/dL (1.9-2.7) 10/12/17 04:35 Total Bilirubin 0.5 mg/dL (0.3-1.0) 10/12/17 04:35 Direct Bilirubin 0.11 mg/dL (0.0-0.2) 10/01/17 05:40 AST 19 U/L (13-39) 10/12/17 04:35 ALT 34 U/L (7-52) 10/12/17 04:35 Alkaline Phosphatase 50 U/L (34-104) 10/12/17 04:35 Ammonia 43 umol/L (16-53) 09/01/17 05:40 B-Natriuretic Peptide 71.5 pg/mL (5.0-100.0) 10/04/17 06:37 Total Protein 6.9 gm/dL (6.0-8.3) 10/12/17 04:35 Albumin 3.8 gm/dL (3.7-5.3) 10/12/17 04:35 Globulin 3.1 gm/dL 10/12/17 04:35 Albumin/Globulin Ratio 1.2 (1.0-1.8) 10/12/17 04:35 Prealbumin 21 mg/dL (10-36) 10/01/17 05:40 Triglycerides 76 mg/dL (<150) 10/01/17 05:40 Cholesterol 140 mg/dL (<200) 10/01/17 05:40 Vitamin B12 790 pg/mL (232-1245) 09/01/17 05:40 Folic Acid 4.8 ng/mL (>3.0) 09/01/17 05:40 TSH 1.04 uIU/ml (0.34-5.60) 09/29/17 06:16 Urine Source [place] 08/29/17 13:45 Urine Color YELLOW 08/29/17 13:45 Urine Clarity SLIGHTLY HAZY (CLEAR) 08/29/17 13:45 Urine pH 7.5 (4.6 - 8.0) 08/29/17 13:45 Ur Specific [place] 1.010 (1.005-1.030) 08/29/17 13:45 Urine Protein NEGATIVE mg/dL (NEGATIVE) 08/29/17 13:45 Urine Glucose (UA) NEGATIVE mg/dL (NEGATIVE) 08/29/17 13:45 Urine Ketones NEGATIVE mg/dL (NEGATIVE) 08/29/17 13:45 Urine Blood TRACE (NEGATIVE) 08/29/17 13:45 Urine Nitrate NEGATIVE (NEGATIVE) 08/29/17 13:45 Urine Bilirubin NEGATIVE (NEGATIVE) 08/29/17 13:45 Urine Urobilinogen 0.2 E.U./dL (0.2 - 1.0) 08/29/17 13:45 Ur Leukocyte Esterase NEGATIVE (NEGATIVE) 08/29/17 13:45 Urine RBC 0-2 /hpf (0-5) 08/29/17 13:45 Urine WBC 0-2 /hpf (0-5) 08/29/17 13:45 Ur Epithelial Cells OCCASIONAL /lpf (FEW) 08/29/17 13:45 Urine Bacteria FEW /hpf (NONE SEEN) 08/29/17 13:45 Vancomycin Trough < 2.0 ug/mL (5-10) L 09/17/17 21:34 Hepatitis A IgM Ab Negative (Negative) 09/24/17 05:55 Hep Bs Antigen Negative (Negative) 09/24/17 05:55 Hep B Core IgM Ab Negative (Negative) 09/24/17 05:55 Hepatitis C Antibody 0.1 s/co ratio (0.0-0.9) 09/24/17 05:55 HIV 1&2 Antibody Screen NEGATIVE (NEG) 09/24/17 05:55 - Physical Exam Vitals and I&O: Vital Signs Temp 97.2 F 10/12/17 09:00 Pulse 64 10/12/17 09:00 Resp 16 10/12/17 11:00 BP 124/69 10/12/17 09:00 Pulse Ox 95 10/12/17 07:05 Intake & Output 10/11/17 10/12/17 10/12/17 18:59 06:59 18:59 Intake Total 911 724 Output Total 600 1100 Balance 311 -376 Weight (lbs) 45.042 kg 44.815 kg Intake: Tube Feeding 711 474 Other 200 250 Output: Urine 600 1100 Other: # Bowel Movements 0 Weight Source Bedscale Bedscale Active Medications: Current Medications Acetaminophen (Tylenol) 650 mg GT Q4HR PRN PRN Reason: Pain or Fever >101 Stop: 10/23/17 19:40 Albuterol Sulfate (Albuterol 2.5mg/3ml Neb Ud) 2.5 mg HHN Q4HRT PRN PRN Reason: Shortness of Breath Stop: 10/23/17 19:40 Artificial Tears (Artificial Tears Ophth Soln) 1 drop EACH EYE Q2H PRN PRN Reason: Dry Eye Stop: 11/10/17 10:46 Bisacodyl (Dulcolax 10 Mg Supp) 10 mg RC DAILY PRN PRN Reason: Constipation Stop: 10/23/17 19:40 Last Admin: 10/08/17 13:35 Dose: 10 mg Diphenhydramine HCl (Benadryl) 25 mg GT Q6HR PRN PRN Reason: agitation Stop: 12/11/17 11:58 Docusate Sodium (Colace) 100 mg GT DAILY PRN PRN Reason: CONSTIPATION Stop: 10/24/17 08:59 Last Admin: 10/12/17 09:42 Dose: 100 mg Haloperidol Lactate (Haldol Concentrate 10mg/5ml Susp) 2 mg PO Q6HR PRN; Protocol PRN Reason: Agitation Stop: 12/11/17 11:56 Insulin Aspart (Novolog Insulin Sliding Scale) 0 units SUBQ Q6H FOZIA; Protocol Stop: 11/28/17 17:59 Last Admin: 10/12/17 12:10 Dose: Not Given Ipratropium [place] (Atrovent Neb 0.5mg/2.5ml) 0.5 mg HHN Q4HRT PRN PRN Reason: Shortness of Breath or Wheeze Stop: 10/23/17 19:40 Lactic Acid (Lac-Hydrin Cream) 1 appl TP DAILY FOZIA Stop: 10/24/17 08:59 Last Admin: 10/12/17 09:42 Dose: 1 appl Lactobacillus Rhamnosus (Culturelle 15b) 1 each PO DAILY FOZIA Stop: 12/07/17 08:59 Last Admin: 10/12/17 09:42 Dose: 1 each Levothyroxine Sodium (Synthroid) 0.05 mg PO QDAC FOZIA Stop: 12/07/17 07:29 Last Admin: 10/12/17 06:40 Dose: 0.05 mg Lorazepam (Ativan) 1 mg IV Q4H PRN; Protocol PRN Reason: Agitation Stop: 11/19/17 07:48 Last Admin: 10/12/17 12:38 Dose: 1 mg Lorazepam (Ativan) 1 mg PO Q6HR PRN; Protocol PRN Reason: Agitation Stop: 12/10/17 14:21 Last Admin: 10/11/17 14:45 Dose: 1 mg Magnesium Hydroxide (Milk Of Magnesia) 30 ml PO HS PRN PRN Reason: Constipation Stop: 10/23/17 19:40 Megestrol Acetate (Megace) 400 mg PO BID FOZIA Stop: 10/24/17 08:59 Last Admin: 10/12/17 09:42 Dose: 400 mg Midodrine (Proamatine) 2.5 mg PO TID FOZIA Stop: 11/20/17 20:59 Last Admin: 10/12/17 09:42 Dose: 2.5 mg Mirtazapine (Remeron) 15 mg PO HS FOZIA; Protocol Stop: 10/30/17 20:59 Last Admin: 10/11/17 20:40 Dose: 15 mg Miscellaneous (Vte Chemical Prophylaxis Screen/ Admission) 1 ea MC PRN PRN PRN Reason: PROTOCOL Stop: 10/24/17 09:26 Miscellaneous (Probiotic Screen) 1 ea MC PRN PRN PRN Reason: PROTOCOL Stop: 12/06/17 09:44 Olanzapine (Zyprexa) 5 mg PO HS FOZIA; Protocol Stop: 10/23/17 20:59 Last Admin: 10/11/17 20:41 Dose: 5 mg Sodium Phosphate (Fleet Enema) 135 ml RC DAILY PRN PRN Reason: Constipation Stop: 10/23/17 19:40 Theophylline (Elijah-Dur) 200 mg PO BID FOZIA Stop: 11/23/17 16:59 Last Admin: 10/12/17 09:41 Dose: 200 mg General: demented, disheveled, thin, cachectic HEENT: NC/AT, PERRLA Neck: Supple, No JVD, No LAD Lungs: chest deformity present Cardiovascular: RRR, Normal S1, Normal S2, with murmur Abdomen: soft, non-tender, thin, positive bowel sound Extremities: excoriation, contracture, deformity Neurological: disorganized, muscle weakness, unable to follow command - Procedures Procedures: Procedures Procedure Code Date RECREATIONAL THERAPY 93.81 11/09/10 Internal Medicine Assmt/Plan - Assessment Assessment: ASSESSMENT AND PLAN: Failure to thrive, poor p.o. intake, severe protein-caloric malnutrition, diabetes, congestive heart failure, acute on chronic renal insufficiency, schizoaffective disorder, hypertension, hypokalemia, dementia, legally blind, leukocytosis, and bedbound. - Plan Plan: plan We will continue the patient on oxygen and bronchodilator treatments. We will continue with __ivf__. We will perform calorie count. We will try to get all the conservative as far as the advance directive, continue with current care with followup consult and recommendations. Psych is following. cont on gt feeding Nutritional Asmnt/Malnutr-PDOC - Dietary Evaluation Malnutrition Findings (Please click <Entered> for more info): Nutritional Asmnt/Malnutrition Start: 08/25/17 17: 28 Text: Status: Complete Freq: Protocol: Document 08/25/17 17:28 LCHENG (Rec: 08/25/17 17:32 [email or web address]) Nutritional Asmnt/Malnutrition Patient General Information Nutritional Screening High Risk Consult Diagnosis dehydration, FTT Pertinent Medical Hx/Surgical Hx DM, CHF, kidney failure, schizophrenia, HTN, dementia, legally blind, noncompliance Subjective Information Consult received for poor oral intake. Pt seen resting in bed at time of visit. Per nurse note, pt refused breakfast and lunch today. Pt on calorie count noted. Current Diet Order/ Nutrition Support pureed, nectar thin liquid Pertinent Medications D5-0.45ns, colace, novolog, megace Pertinent Labs 7/ K 3.0, glucose 106 Nutritional Hx/Data Height 1.68 m Height (Calculated Centimeters) 167.6 Current Weight (lbs) 50.349 kg Weight (Calculated Kilograms) 50.3 Weight (Calculated Grams) 09379.8 [place] Body Weight 130 Body Mass Index (BMI) 17.9 Weight Status Underweight GI Symptoms GI Symptoms None Last BM none Skin Integrity/Comment: redness Estimated Nutritional Goals BEE in Kcals: Using Current wt Calories/Kcals/Kg 30-35 Kcals Calculated 7195-3632 Protein: Using Current wt Protein g/k.2 Protein Calculated 60 Fluid: ml 1500-1750ml (1ml/kcal) Nutritional Problem 1. Problem Problem inadequate food intake Etiology pt refusing to eat Signs/Symptoms: PO intake <25% since admission Malnutrition Alert Muscle Mass (Non-Severe) Mild Depletion Is there a minimum of two criteria No selected? Query Text:Check all the applicable criteria. A minimum of two criteria are recommended for diagnosis of either severe or non-severe malnutrition. Malnutrition Related to Morbid Obesity Malnutrition related to morbid obesity No Intervention/Recommendation Comments 1. Continue with current diet as ordered. Assist pt with meals and encourage oral intake. 2. Monitor PO intake, wt, labs and skin integrity 3. F/U as high risk in 2-3 days, 08/27-08/28 Expected Outcomes/Goals Expected Outcomes/Goals 1. PO intake to meet at least 75% of nutritional needs. 2. Wt stability, skin to remain intact, labs to approach WNL.
--- NOTE | 2017-10-12 17:04 | Progress Notes ---
DATE: 10/12/2017 SUBJECTIVE: Staff was spoken to. The patient is interviewed. Mood is noted to be irritable. Affect is constricted. The patient is trying to pull the G-tube out and the patient has to be kept into soft restraints. The patient has no insight into her illness. The patient's coping skills are noted to be extremely poor. The patient is currently on Zyprexa and Benadryl on a regular basis. However, the patient is still very agitated and hence it is decided to give the patient the haloperidol 2 mg along with Benadryl 25 mg through the G-tube q.6 hours on a p.r.n. basis and follow the patient. JOB# [id number]
[2017-10-13] MEDS: INSULIN ASPART SLIDING SCALE 100 UNITS/ML UNIT SUBQ SCH ×3 (00:22→11:52)
[2017-10-13] MEDS: Theophylline 100 mg ER Tab PO SCH ×2 (08:50→16:32)
[2017-10-13] MEDS: Lactobacillus Rhamnosus GG 15 Billion CFU CAP.SPRINK PO SCH (08:50)
[2017-10-13] MEDS: Ammonium Lactate Cream 140 gm Tube TP SCH (08:51)
[2017-10-13] MEDS: Levothyroxine 0.05 Mg Tab PO SCH (08:53)
--- NOTE | 2017-10-13 14:37 | Internal Medicine Prog Note ---
Internal Medicine Subjective - Subjective Service Date: 10/13/17 Patient seen and examined:: with staff Patient is:: awake, non-interactive, in bed, agitated, confused, other Patient Complaints of:: congestion Per staff patient has:: poor appetite, poor oral intake Internal Medicine Objective - Results Result Diagrams: 10/10/17 05:50 10/12/17 04:35 Recent Labs: Laboratory Last Values WBC 7.8 Th/cmm (4.8-10.8) 10/10/17 05:50 RBC 3.04 Mil/cmm (3.80-5.20) L 10/10/17 05:50 Hgb 9.5 gm/dL (12-16) L 10/10/17 05:50 Hct 28.1 % (41.0-60) L 10/10/17 05:50 MCV 92.5 fl (81-100) 10/10/17 05:50 MCH 31.3 pg (27.0-31.0) H 10/10/17 05:50 MCHC Differential 33.8 pg (28.0-36.0) 10/10/17 05:50 RDW 14.8 % (11.5-20.0) 10/10/17 05:50 Plt Count 312 Th/cmm (150-400) 10/10/17 05:50 MPV 10.9 fl 10/10/17 05:50 Neutrophils % 71.9 % (40.0-80.0) 10/10/17 05:50 Lymphocytes % 18.8 % (20.0-50.0) L 10/10/17 05:50 Monocytes % 7.5 % (2.0-10.0) 10/10/17 05:50 Eosinophils % 1.1 % (0.0-5.0) 10/10/17 05:50 Basophils % 0.7 % (0.0-2.0) 10/10/17 05:50 PT 10.2 SECONDS (9.5-11.5) 10/06/17 04:40 INR 0.98 (0.5-1.4) 10/06/17 04:40 Sodium 142 mEq/L (136-145) 10/12/17 04:35 Potassium 3.9 mEq/L (3.5-5.1) 10/12/17 04:35 Chloride 107 mEq/L (98-107) 10/12/17 04:35 Carbon Dioxide 28.3 mEq/L (21.0-31.0) 10/12/17 04:35 Anion Gap 10.6 (7.0-16.0) 10/12/17 04:35 BUN 22 mg/dL (7-25) 10/12/17 04:35 Creatinine 0.9 mg/dL (0.6-1.2) 10/12/17 04:35 Est GFR ( Amer) > 60.0 ml/min (>90) 10/12/17 04:35 Est GFR (Non-Af Amer) > 60.0 ml/min 10/12/17 04:35 BUN/Creatinine Ratio 24.4 10/12/17 04:35 Glucose 90 mg/dL (70-105) 10/12/17 04:35 POC Glucose 133 MG/DL (70 - 105) H 10/13/17 11:43 Hemoglobin A1c % 5.2 % (4.0-6.0) 09/23/17 05:15 Calcium 10.3 mg/dL (8.6-10.3) 10/12/17 04:35 Phosphorus 2.7 mg/dL (2.5-5.0) 10/12/17 04:35 Magnesium 2.0 mg/dL (1.9-2.7) 10/12/17 04:35 Total Bilirubin 0.5 mg/dL (0.3-1.0) 10/12/17 04:35 Direct Bilirubin 0.11 mg/dL (0.0-0.2) 10/01/17 05:40 AST 19 U/L (13-39) 10/12/17 04:35 ALT 34 U/L (7-52) 10/12/17 04:35 Alkaline Phosphatase 50 U/L (34-104) 10/12/17 04:35 Ammonia 43 umol/L (16-53) 09/01/17 05:40 B-Natriuretic Peptide 71.5 pg/mL (5.0-100.0) 10/04/17 06:37 Total Protein 6.9 gm/dL (6.0-8.3) 10/12/17 04:35 Albumin 3.8 gm/dL (3.7-5.3) 10/12/17 04:35 Globulin 3.1 gm/dL 10/12/17 04:35 Albumin/Globulin Ratio 1.2 (1.0-1.8) 10/12/17 04:35 Prealbumin 21 mg/dL (10-36) 10/01/17 05:40 Triglycerides 76 mg/dL (<150) 10/01/17 05:40 Cholesterol 140 mg/dL (<200) 10/01/17 05:40 Vitamin B12 790 pg/mL (232-1245) 09/01/17 05:40 Folic Acid 4.8 ng/mL (>3.0) 09/01/17 05:40 TSH 1.04 uIU/ml (0.34-5.60) 09/29/17 06:16 Urine Source [place] 08/29/17 13:45 Urine Color YELLOW 08/29/17 13:45 Urine Clarity SLIGHTLY HAZY (CLEAR) 08/29/17 13:45 Urine pH 7.5 (4.6 - 8.0) 08/29/17 13:45 Ur Specific [place] 1.010 (1.005-1.030) 08/29/17 13:45 Urine Protein NEGATIVE mg/dL (NEGATIVE) 08/29/17 13:45 Urine Glucose (UA) NEGATIVE mg/dL (NEGATIVE) 08/29/17 13:45 Urine Ketones NEGATIVE mg/dL (NEGATIVE) 08/29/17 13:45 Urine Blood TRACE (NEGATIVE) 08/29/17 13:45 Urine Nitrate NEGATIVE (NEGATIVE) 08/29/17 13:45 Urine Bilirubin NEGATIVE (NEGATIVE) 08/29/17 13:45 Urine Urobilinogen 0.2 E.U./dL (0.2 - 1.0) 08/29/17 13:45 Ur Leukocyte Esterase NEGATIVE (NEGATIVE) 08/29/17 13:45 Urine RBC 0-2 /hpf (0-5) 08/29/17 13:45 Urine WBC 0-2 /hpf (0-5) 08/29/17 13:45 Ur Epithelial Cells OCCASIONAL /lpf (FEW) 08/29/17 13:45 Urine Bacteria FEW /hpf (NONE SEEN) 08/29/17 13:45 Vancomycin Trough < 2.0 ug/mL (5-10) L 09/17/17 21:34 Hepatitis A IgM Ab Negative (Negative) 09/24/17 05:55 Hep Bs Antigen Negative (Negative) 09/24/17 05:55 Hep B Core IgM Ab Negative (Negative) 09/24/17 05:55 Hepatitis C Antibody 0.1 s/co ratio (0.0-0.9) 09/24/17 05:55 HIV 1&2 Antibody Screen NEGATIVE (NEG) 09/24/17 05:55 - Physical Exam Vitals and I&O: Vital Signs Temp 97.6 F 10/13/17 13:20 Pulse 70 10/13/17 13:20 Resp 17 10/13/17 13:20 BP 127/41 10/13/17 13:20 Pulse Ox 97 10/13/17 12:08 Intake & Output 10/12/17 10/13/17 10/13/17 18:59 06:59 18:59 Intake Total 711 674 Output Total 450 Balance 261 674 Weight (lbs) 98 lb 12.8 oz 98 lb Intake: Tube Feeding 711 474 Other 200 Output: Urine 450 Other: # Bowel Movements 1 Stool Characteristics Soft Weight Source Bedscale Estimated Active Medications: Current Medications Acetaminophen (Tylenol) 650 mg GT Q4HR PRN PRN Reason: Pain or Fever >101 Stop: 10/23/17 19:40 Albuterol Sulfate (Albuterol 2.5mg/3ml Neb Ud) 2.5 mg HHN Q4HRT PRN PRN Reason: Shortness of Breath Stop: 10/23/17 19:40 Artificial Tears (Artificial Tears Ophth Soln) 1 drop EACH EYE Q2H PRN PRN Reason: Dry Eye Stop: 11/10/17 10:46 Bisacodyl (Dulcolax 10 Mg Supp) 10 mg RC DAILY PRN PRN Reason: Constipation Stop: 10/23/17 19:40 Last Admin: 10/08/17 13:35 Dose: 10 mg Diphenhydramine HCl (Benadryl) 25 mg GT Q6HR PRN PRN Reason: agitation Stop: 12/11/17 11:58 Last Admin: 10/13/17 00:27 Dose: 25 mg Docusate Sodium (Colace) 100 mg GT DAILY PRN PRN Reason: CONSTIPATION Stop: 10/24/17 08:59 Last Admin: 10/12/17 09:42 Dose: 100 mg Haloperidol Lactate (Haldol Concentrate 10mg/5ml Susp) 2 mg PO BID FOZIA; Protocol Stop: 12/12/17 16:59 Insulin Aspart (Novolog Insulin Sliding Scale) 0 units SUBQ Q6H FOZIA; Protocol Stop: 11/28/17 17:59 Last Admin: 10/13/17 11:52 Dose: Not Given Ipratropium [place] (Atrovent Neb 0.5mg/2.5ml) 0.5 mg HHN Q4HRT PRN PRN Reason: Shortness of Breath or Wheeze Stop: 10/23/17 19:40 Lactic Acid (Lac-Hydrin Cream) 1 appl TP DAILY FOZIA Stop: 10/24/17 08:59 Last Admin: 10/13/17 08:51 Dose: 1 appl Lactobacillus Rhamnosus (Culturelle 15b) 1 each PO DAILY FOZIA Stop: 12/07/17 08:59 Last Admin: 10/13/17 08:50 Dose: 1 each Levothyroxine Sodium (Synthroid) 0.05 mg PO QDAC FOZIA Stop: 12/07/17 07:29 Last Admin: 10/13/17 08:53 Dose: 0.05 mg Lorazepam (Ativan) 1 mg IV Q4H PRN; Protocol PRN Reason: Agitation Stop: 11/19/17 07:48 Last Admin: 10/12/17 12:38 Dose: 1 mg Lorazepam (Ativan) 1 mg PO Q6HR PRN; Protocol PRN Reason: Agitation Stop: 12/10/17 14:21 Last Admin: 10/12/17 19:55 Dose: 1 mg Magnesium Hydroxide (Milk Of Magnesia) 30 ml PO HS PRN PRN Reason: Constipation Stop: 10/23/17 19:40 Megestrol Acetate (Megace) 400 mg PO BID FOZIA Stop: 10/24/17 08:59 Last Admin: 10/13/17 08:50 Dose: 400 mg Midodrine (Proamatine) 2.5 mg PO TID FOZIA Stop: 11/20/17 20:59 Last Admin: 10/13/17 13:36 Dose: 2.5 mg Mirtazapine (Remeron) 15 mg PO HS FOZIA; Protocol Stop: 10/30/17 20:59 Last Admin: 10/12/17 20:02 Dose: 15 mg Miscellaneous (Vte Chemical Prophylaxis Screen/ Admission) 1 ea MC PRN PRN PRN Reason: PROTOCOL Stop: 10/24/17 09:26 Miscellaneous (Probiotic Screen) 1 ea MC PRN PRN PRN Reason: PROTOCOL Stop: 12/06/17 09:44 Olanzapine (Zyprexa) 5 mg PO HS FOZIA; Protocol Stop: 10/23/17 20:59 Last Admin: 10/12/17 20:03 Dose: 5 mg Sodium Phosphate (Fleet Enema) 135 ml RC DAILY PRN PRN Reason: Constipation Stop: 10/23/17 19:40 Theophylline (Elijah-Dur) 200 mg PO BID FOZIA Stop: 11/23/17 16:59 Last Admin: 10/13/17 08:50 Dose: 200 mg General: demented, disheveled, thin, cachectic HEENT: NC/AT, PERRLA Neck: Supple, No JVD, No LAD Lungs: chest deformity present Cardiovascular: RRR, Normal S1, Normal S2, with murmur Abdomen: soft, non-tender, thin, positive bowel sound Extremities: excoriation, contracture, deformity Neurological: disorganized, muscle weakness, unable to follow command - Procedures Procedures: Procedures Procedure Code Date RECREATIONAL THERAPY 93.81 11/09/10 Internal Medicine Assmt/Plan - Assessment Assessment: s/p peg placement Failure to thrive severe protein-caloric malnutrition diabetes congestive heart failure acute on chronic renal insufficiency schizoaffective disorder hypertension hypokalemia dementia legally blind leukocytosis bedbound. noncompliant - Plan Plan: case aide arranging placement continue with gt ivf for hydration monitor electrolytes continue current plan of care Nutritional Asmnt/Malnutr-PDOC - Dietary Evaluation Malnutrition Findings (Please click <Entered> for more info): Nutritional Asmnt/Malnutrition Start: 08/25/17 17: 28 Text: Status: Complete Freq: Protocol: Document 08/25/17 17:28 LCJESICAG (Rec: 08/25/17 17:32 [email or web address]) Nutritional Asmnt/Malnutrition Patient General Information Nutritional Screening High Risk Consult Diagnosis dehydration, FTT Pertinent Medical Hx/Surgical Hx DM, CHF, kidney failure, schizophrenia, HTN, dementia, legally blind, noncompliance Subjective Information Consult received for poor oral intake. Pt seen resting in bed at time of visit. Per nurse note, pt refused breakfast and lunch today. Pt on calorie count noted. Current Diet Order/ Nutrition Support pureed, nectar thin liquid Pertinent Medications D5-0.45ns, colace, novolog, megace Pertinent Labs 08/25 K 3.0, glucose 106 Nutritional Hx/Data Height 5 ft 6 in Height (Calculated Centimeters) 167.6 Current Weight (lbs) 111 lb Weight (Calculated Kilograms) 50.3 Weight (Calculated Grams) 91778.8 [place] Body Weight 130 Body Mass Index (BMI) 17.9 Weight Status Underweight GI Symptoms GI Symptoms None Last BM none Skin Integrity/Comment: redness Estimated Nutritional Goals BEE in Kcals: Using Current wt Calories/Kcals/Kg 30-35 Kcals Calculated 3274-9101 Protein: Using Current wt Protein g/k.2 Protein Calculated 60 Fluid: ml 1500-1750ml (1ml/kcal) Nutritional Problem 1. Problem Problem inadequate food intake Etiology pt refusing to eat Signs/Symptoms: PO intake <25% since admission Malnutrition Alert Muscle Mass (Non-Severe) Mild Depletion Is there a minimum of two criteria No selected? Query Text:Check all the applicable criteria. A minimum of two criteria are recommended for diagnosis of either severe or non-severe malnutrition. Malnutrition Related to Morbid Obesity Malnutrition related to morbid obesity No Intervention/Recommendation Comments 1. Continue with current diet as ordered. Assist pt with meals and encourage oral intake. 2. Monitor PO intake, wt, labs and skin integrity 3. F/U as high risk in 2-3 days, 08/27-08/28 Expected Outcomes/Goals Expected Outcomes/Goals 1. PO intake to meet at least 75% of nutritional needs. 2. Wt stability, skin to remain intact, labs to approach WNL.
[2017-10-14] MEDS: INSULIN ASPART SLIDING SCALE 100 UNITS/ML UNIT SUBQ SCH ×3 (00:08→12:36)
--- NOTE | 2017-10-14 02:22 | Progress Notes ---
DATE: 10/13/2017 PSYCHIATRIC PROGRESS NOTE SUBJECTIVE: Staff was spoken to. The patient is interviewed. Mood is noted to be dysphoric. Insight and judgment are very much impaired. Impulse control is noted to be limited. The patient has been very impulsive and has been trying to pull the G-tube out. The patient has to be put on [place] restraints. The patient has no insight into her illness. The patient is very psychotic. The patient has been given the Haldol 2 mg b.i.d. and the patient has also been continued on Zyprexa 5 mg at bedtime. ASSESSMENT: The patient is still psychotic. PLAN: To continue the patient with supportive therapy, encouraged the patient to verbalize the concerns rather than to act out. JOB# [id number]
[2017-10-14] MEDS ORDERED: Haldol Oral Sol.(concentrate) 10 mg/5 mL Udc PO SCH (09:00)
[2017-10-14] MEDS: Levothyroxine 0.05 Mg Tab PO SCH (09:41)
[2017-10-14] MEDS: Lactobacillus Rhamnosus GG 15 Billion CFU CAP.SPRINK PO SCH (09:42)
[2017-10-14] MEDS: Ammonium Lactate Cream 140 gm Tube TP SCH (09:42)
[2017-10-14] MEDS: Theophylline 100 mg ER Tab PO SCH (09:42)
== END 2017-10-14 14:10 | DRG 640 ==
LOC: MSI 16:20 → ICU 09-19 13:49 → TELE 09-21 09:59 → MSI 09-25 12:41
PROVIDERS: ADMIT Internal Medicine; ATTEND Internal Medicine
PROC: 3E0336Z Introduction of Nutritional Substance into Peripheral Vein, Percutaneous Approach (ICD-10-PCS; 2017-09-11)
PROC: 0DH63UZ Insertion of Feeding Device into Stomach, Percutaneous Approach (ICD-10-PCS; principal; 2017-10-06)
DX: E87.6 Hypokalemia (principal); E43 Unspecified severe protein-calorie malnutrition; Z68.1 Body mass index [BMI] 19.9 or less, adult; I13.0 Hypertensive heart and chronic kidney disease with heart failure and stage 1 through stage 4 chronic kidney disease, or unspecified chronic kidney disease; I50.30 Unspecified diastolic (congestive) heart failure; R64 Cachexia; R62.7 Adult failure to thrive; E11.22 Type 2 diabetes mellitus with diabetic chronic kidney disease; F25.9 Schizoaffective disorder, unspecified; F29 Unspecified psychosis not due to a substance or known physiological condition; F03.90 Unspecified dementia, unspecified severity, without behavioral disturbance, psychotic disturbance, mood disturbance, and anxiety; H54.8 Legal blindness, as defined in USA; R13.10 Dysphagia, unspecified; R00.1 Bradycardia, unspecified; N18.2 Chronic kidney disease, stage 2 (mild); E11.319 Type 2 diabetes mellitus with unspecified diabetic retinopathy without macular edema; M81.0 Age-related osteoporosis without current pathological fracture; K44.9 Diaphragmatic hernia without obstruction or gangrene; Z91.14 Patient's other noncompliance with medication regimen; Z74.01 Bed confinement status
CPT/HCPCS: 36415-UA; 70450-TC; 80048-TC; 80053-TC; 80074-90; 80076-TC; 80202-TC; 81001-TC; 82040-TC; 82140-TC; 82465-TC; 82607-90; 82746-90; 82947-TC; 82948-90; 83036-90; 83735-TC; 83880-TC; 84100-TC; 84134-90; 84443-TC; 84478-TC; 85025-TC; 85610-TC; 86703-TC; 90779; 90784; 90799; 93005; 94760; A4217; J1644; J1815; J1956; J2060; J2704; J3430; J3475; J3480; J7040; J7042; J7051; J7070; J7613; J7799; P9047; X6598; Z7506; Z7610